=== PATIENT | male | born 1935 | race Caucasian/White ===

== ENCOUNTER → 2017-01-05 | Outpatient (CLI) | payer MEDICARE, BC ==
--- NOTE | 2017-01-05 12:30 | US ---
EXAMINATION TYPE: US thyroid st tissue head/neck DATE OF EXAM: 01/05/2017 11:25 AM COMPARISON: US on PACS 2010October 04, 2011. CT chest October 23, 2014. 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 Right thyroidectomy; patient takes thyroid medication. GLAND SIZE: Right Lobe: surgically removed Left Lobe: 4.1 x 1.6 x 2.6 cm Overall Parenchyma: homogeneous Isthmus Thickness: 0.2 cm NODULES RIGHT: no thyroid tissue seen LEFT: # of nodules measured on left: 2 largest of multiple 1. 1.1 x 0.9 x 0.9 cm hypoechoic mixed nodule at the mid pole with well-defined margins; present wit h microcalcification. This nodule is wider than tall and shows no intranodular vascularity. Prior size: 2010 US had couple smaller cysts 2. 1.1 x 1.1 x 1.0 cm hypoechoic mixed nodule at the medial pole with well-defined margins; present with microcalcification. This nodule is wider than tall and shows no intranodular vascularity. ISTHMUS: # of nodules measured in the isthmus: 0 TECHNOLOGIST IMPRESSION: Bilateral neck scanned, no abnormal lymphadenopathy noted. No suspicious residual tissue is seen in the right thyroid bed. Left thyroid is normal in size. 2 pro bable cystic nodules measuring 1.1 cm on long axis each are marked by technologist not completely ane choic. IMPRESSION: 2 cystic nodules measuring 1.1 cm on long axis more prominent in size versus prior ultrasound and CT.
== END | disposition home or self-care (01) ==
LOC: RADUSWWP 10:48
PROVIDERS: ATTEND Otolaryngology
DX: E04.2 Nontoxic multinodular goiter (principal)
CPT/HCPCS: 76536

== ENCOUNTER 2017-01-21 09:12 | Emergency (ER) | payer MEDICARE, BC ==
--- NOTE | 2017-01-21 10:00 | ED ---
General Adult HPI <EduardEliseo - Last Filed: 01/21/17 10:30> - General Source: patient, RN notes reviewed Mode of arrival: ambulatory Limitations: no limitations <Rashad Medrano - Last Filed: 01/21/17 10:51> - General Chief complaint: Eye Problems Stated complaint: eye pain post shot Time Seen by Provider: 01/21/17 09:37 - History of Present Illness Initial comments: Patient 81-year-old male who presents emergency room today with a chief complaint of decreased vision out of the right eye with increased pain and watering. Patient does admit that yesterday he woke up with no vision in the right eye. States is only making out light. Patient states that throughout the day yesterday he began feeling some discomfort to the right eye. States he noticed when he was looking down. States he was at his granddaughter's wedding. Patient states that today the pain is increased. States worse with movements of the right eye along with increased watering and redness to the conjunctiva. Patient does admit that he sees group director experience who has been giving him injections in the right eye for bleeding behind the eye. He does admit that he had a injection this past week. He denies any other complaints or symptoms. Patient denies any recent fever, chills, shortness of breath, chest pain, back pain, abdominal pain, nausea or vomiting, numbness or tingling , dysuria or hematuria, constipation or diarrhea, headaches, or any other complaints. (Rashad Medrano) - Related Data Home Medications Medication Instructions Recorded Confirmed Aspirin 325 mg PO DAILY 09/29/14 01/21/17 Atenolol [Tenormin] 25 mg PO DAILY 09/29/14 01/21/17 Citalopram Hydrobromide [CeleXA] 20 mg PO AC-SUPPER 09/29/14 01/21/17 Citalopram Hydrobromide 40 mg PO DAILY 09/29/14 01/21/17 [Citalopram HBr] Eszopiclone [Lunesta] 3 mg PO HS 09/29/14 01/21/17 LORazepam [Ativan] 1 mg PO TID 09/29/14 01/21/17 Levothyroxine Sodium [Synthroid] 88 mcg PO DAILY 09/29/14 01/21/17 Losartan Potassium [Cozaar] 100 mg PO DAILY 09/29/14 01/21/17 Multivitamins, Thera [Multivitamin] 1 each PO DAILY 09/29/14 01/21/17 Omeprazole [PriLOSEC] 20 mg PO BID 09/29/14 01/21/17 Restaisi(Dose Unknown) 1 drop BOTH EYES BID 09/29/14 01/21/17 Saxagliptin HCl [Onglyza] 5 mg PO AC-SUPPER 09/29/14 01/21/17 Simvastatin [Zocor] 40 mg PO HS 09/29/14 01/21/17 Tamsulosin HCl [Flomax] 0.4 mg PO DAILY 09/29/14 01/21/17 buPROPion [Wellbutrin] 75 mg PO HS 09/29/14 01/21/17 buPROPion [Wellbutrin] 150 mg PO QAM 09/29/14 01/21/17 glipiZIDE [Glucotrol] 10 mg PO TID 09/29/14 01/21/17 metFORMIN HCL [Glucophage] 500 mg PO TID 09/29/14 01/21/17 risperiDONE [RisperDAL] 0.5 mg PO HS 09/29/14 01/21/17 Allergies Allergy/AdvReac Type Severity Reaction Status Date / Time No Known Allergies Allergy Verified 01/21/17 09:35 Review of Systems ROS Other: All systems not noted in ROS Statement are negative. <Eliseo Chapa - Last Filed: 01/21/17 10:30> ROS Other: All systems not noted in ROS Statement are negative. <Rashad Medrano - Last Filed: 01/21/17 10:51> ROS Statement: Those systems with pertinent positive or pertinent negative responses have been documented in the HPI. Past Medical History Past Medical History: Cancer, Diabetes Mellitus, GERD/Reflux, Hyperlipidemia, Hypertension, Myocardial Infarction ([place]), Pneumonia, Sleep Apnea/CPAP/BIPAP, Thyroid Disorder Additional Past Medical History / Comment(s): no CPAP used, hiatal hernia, hx thyroid cancer Last Myocardial Infarction Date:: 1999 History of Any Multi-Drug Resistant Organisms: None Reported Past Surgical History: Heart Catheterization With Stent, Joint Replacement Additional Past Surgical History / Comment(s): left knee replacement, cataracts Past Anesthesia/Blood Transfusion Reactions: No Reported Reaction Date of Last Stent Placement:: 1999 Past Psychological History: Anxiety, Depression Smoking Status: Former smoker Past Alcohol Use History: None Reported Past Drug Use History: None Reported - Past Family History Father Family Medical History: Cancer Mother Family Medical History: Cancer <Rashad Medrano - Last Filed: 01/21/17 10:51> General Exam <ChapaEliseo - Last Filed: 01/21/17 10:30> Limitations: no limitations <Rashad Medrano - Last Filed: 01/21/17 10:51> - General Exam Comments Initial Comments: General: The patient is awake and alert, in no distress, and does not appear acutely ill. Eye: Pupils are equal, round and reactive to light, extra-ocular movements are intact. No nystagmus. Increased redness to the right conjunctiva with watery discharge. Left conjunctiva clear. No signs of icterus. No red reflex on the right. Positive red reflex on the left. Unable to see any vessels in the right eye with funduscopic exam. Ears, nose, mouth and throat: There are moist mucous membranes and no oral lesions. Neck: The neck is supple, there is no tenderness or JVD. Cardiovascular: There is a regular rate and rhythm. No murmur, rub or gallop is appreciated. Respiratory: Lungs are clear to auscultation, respirations are non-labored, breath sounds are equal. No wheezes, stridor, rales, or rhonchi. Musculoskeletal: Normal ROM, no tenderness. Strength 5/5. Sensation intact. Pulses equal bilaterally 2+. Neurological: A&O x 3. CN II-XII intact, There are no obvious motor or sensory deficits. Coordination appears grossly intact. Speech is normal. Skin: Skin is warm and dry and no rashes or lesions are noted. Psychiatric: Cooperative, appropriate mood & affect, normal judgment. (Rashad Medrano) Course <Eliseo Chaap - Last Filed: 01/21/17 10:30> <Rashad Medrano - Last Filed: 01/21/17 10:51> Vital Signs 01/21/17 01/21/17 01/21/17 09:32 10:38 10:47 Temperature 98 F Pulse Rate 68 66 66 Respiratory 18 20 Rate Blood Pressure 201/88 221/91 193/78 O2 Sat by Pulse 93 L 94 L 92 L Oximetry - Reevaluation(s) Reevaluation #1: 01/21/17 10:24 Patient reevaluated by myself, Dr. Chapa. Patient states only able see lights out of the right eye. Patient has pain with movement. There is mild injection. Pupil is sluggish but does appear to react. Unable to visualize red reflex. Unable to visualize posterior eye. Case was discussed in detail with Dr. english who does recommend transfer. This will be set up. 01/21/17 10:30 (Eliseo Chapa) 01/21/17 0948: Case discussed with attending physician Dr. Musa, who did discuss case with on-call group director experience Dr. Goddard at [facility] covering for Dr. García. Recommends talking to on-call group director experience here at [facility] to see if they are willing to evaluate the patient. States need to rule out between blood behind the eye versus an infection. Patient being treated for macular degeneration. States patient may be transferred to [facility] for further care if unable to evaluate here at [facility]. 1005: Patient updated of options of transfer to [facility] versus evaluation here. States he would like to try to be evaluated here at [facility] if at all possible. At this time we will try to get ahold of on- call group director experience. 01/21/17 10:29 Case discussed with [facility] at this time for transfer. Receiving nurse states she will contact on-call ophthalmology to make sure that transfer accepted and will call us back. 01/21/17 10:42 [facility] did call back and except transfer to ER to ER except physician . (Rashad Medrano) Disposition <Eliseo Chapa - Last Filed: 01/21/17 10:30> Time of Disposition: 10:51 (Transfer via EMS to [facility]) - Out of Hospital Transfer - Req. Specs Out of Hospital Transfer - Requested Specifics: Other Emergency Center ([facility]) <Rashad Medrano - Last Filed: 01/21/17 10:51> Clinical Impression: Vision loss, right eye, HTN (hypertension) Disposition: OTHER INSTITUTION NOT DEFINED Condition: Stable
[2017-01-21] MEDS ORDERED: hydrALAZINE HCL 20 MG/ML 1 ML VIAL IVP STA (10:27)
[2017-01-21 11:07] LABS: Basophils # (A) 0.1 k/uL (0-0.2); Basophils % (A) 1 %; CH 32.3; CHCM 32.7; Eosinophils # (A) 0.2 k/uL (0-0.7); Eosinophils % (A) 2 %; HCT 43.1 % (39.0-53.0); HDW 2.51; HGB 14.3 gm/dL (13.0-17.5); Luc # (Auto) 0.24; Luc % (Auto) 2; Lymphocytes # (A) 1.6 k/uL (1.0-4.8); Lymphocytes % (A) 14 %; MCH 32.8 pg (25.0-35.0); MCHC 33.1 g/dL (31.0-37.0); MCV 99.2 fL (80.0-100.0); Mean Platelet Volume 7.6; Monocytes # (A) 0.5 k/uL (0-1.0); Monocytes % (A) 4 %; Neutrophils % (A) 78 %; RBC 4.35 m/uL (4.30-5.90); RDW 13.3 % (11.5-15.5); WBC 11.6 k/uL (3.8-10.6); WBC (Perox) 11.78
[2017-01-21 11:08] VITALS: RESP 18
[2017-01-21 11:17] LABS: Partial Thromboplastin Time 24.4 sec (22.0-30.0); Prothrombin Time 10.2 sec (9.0-12.0)
[2017-01-21 11:23] LABS: ALT 27 U/L (21-72); AST 16 U/L (17-59); Alkaline Phosphatase 92 U/L (38-126); Anion Gap 10 mmol/L; Blood Urea Nitrogen 32 mg/dL (9-20); Calcium 9.9 mg/dL (8.4-10.2); Carbon Dioxide 24 mmol/L (22-30); Chloride 108 mmol/L (98-107); Glucose 171 mg/dL (74-99); Non-African American GFR(MDRD) 56 (>60 ml/min/1.73 sqM); Potassium 5.3 mmol/L (3.5-5.1); Sodium 142 mmol/L (137-145); Total Bilirubin 0.4 mg/dL (0.2-1.3); Total Protein 6.5 g/dL (6.3-8.2)
[2017-01-21] MEDS ORDERED: MORPHINE SULFATE 4 MG/ML SYRINGE IV STA (12:07)
[2017-01-21 12:12] VITALS: BP 158/89; PULSE 79; TEMP 97.8
== END 2017-01-21 12:10 | disposition short-term general hospital (02) ==
LOC: EC 09:12
DX: H54.61 Unqualified visual loss, right eye, normal vision left eye (principal); H35.30 Unspecified macular degeneration; I10 Essential (primary) hypertension; E11.9 Type 2 diabetes mellitus without complications; K21.9 Gastro-esophageal reflux disease without esophagitis; E78.5 Hyperlipidemia, unspecified; I25.2 Old myocardial infarction; E07.9 Disorder of thyroid, unspecified; F41.9 Anxiety disorder, unspecified; F32.9 Major depressive disorder, single episode, unspecified; Z87.891 Personal history of nicotine dependence; Z79.84 Long term (current) use of oral hypoglycemic drugs; Z79.899 Other long term (current) drug therapy; Z79.82 Long term (current) use of aspirin; Z85.850 Personal history of malignant neoplasm of thyroid; Z95.5 Presence of coronary angioplasty implant and graft
CPT/HCPCS: 99284; 96374; 96375; 36415; 80053; 85025; 85610; 85730; J2270; J0360

== ENCOUNTER → 2017-06-25 | Outpatient (CLI) | payer MEDICARE, BC ==
--- NOTE | 2017-06-25 14:31 | US ---
EXAMINATION TYPE: US thyroid st tissue head/neck DATE OF EXAM: 06/25/2017 COMPARISON: NONE CLINICAL HISTORY: E04.1 THYROID NODULE; Right thyroidectomy; follow up left nodules GLAND SIZE: Right Lobe: surgically removed Left Lobe: 4.3 x 1.7 x 2.4 cm Overall Parenchyma: homogeneous Isthmus Thickness: 0.3 cm NODULES RIGHT Thyroid surgically removed LEFT: # of nodules measured on left: 2 largest of multiple 1. 1.0 x 1.0 x 0.8cm hypoechoic complex cystic nodule at the mid pole with well-defined margins. Thi s nodule is wider than tall and shows no intranodular vascularity. Prior size: 1.1 x 0.9 x 0.9 cm 2. 1.1 X 0.9 x 0.8 cm hypoechoic complex cystic nodule at the mid medial pole with well-defined lakia ins; . This nodule is wider than tall and shows no intranodular vascularity. Prior size: 1.1 x 1.1 x 1.0 cm ISTHMUS: # of nodules measured in the isthmus: 0 Bilateral neck scanned, no evidence of lymphadenopathy. IMPRESSION: 1. Postsurgical change involving the right lobe. 2. Stable left-sided thyroid nodules.
== END | disposition home or self-care (01) ==
LOC: RADUSWWP 13:48
PROVIDERS: ATTEND Otolaryngology
DX: E04.2 Nontoxic multinodular goiter (principal); E89.0 Postprocedural hypothyroidism
CPT/HCPCS: 76536

== ENCOUNTER → 2018-02-13 | Outpatient (CLI) | payer MEDICARE, BC ==
--- NOTE | 2018-02-13 10:19 | US ---
EXAMINATION TYPE: US thyroid st tissue head/neck DATE OF EXAM: 02/13/2018 COMPARISON: 06/25/2017 CLINICAL HISTORY: 82-year-old male E04.1 Nontoxic single thyroid nodule. Left thyroid nodules, histor y of thyroid CA and right thyroidectomy Technique: Multiple sonographic images of the thyroid gland are obtained. FINDINGS: GLAND SIZE: Right Lobe: surgically absent Left Lobe: 3.9 x 2.3 x 1.5 cm Overall Parenchyma: homogeneous Isthmus Thickness: 0.3 cm NODULES RIGHT THYROID BED: 1.7 x 0.8 x 0.7cm hypoechoic vascular structure mid right thyroid bed. LEFT: # of nodules measured on left: 2 1. 10 x 8 x 7 mm hypoechoic complex cystic nodule at the mid pole with well-defined margins. This nod ule is wider than tall and shows no intranodular vascularity. Prior size: 1.0 x 1.0 x 0.8 cm 2. 11 x 10 x 10 mm hypoechoic complex cystic nodule at the mid pole with well-defined margins. This n odule is wider than tall and shows no intranodular vascularity. Prior size: 1.1 x 0.9 x 0.8 cm ISTHMUS: # of nodules measured in the isthmus: 0 Bilateral neck scanned, no evidence of lymphadenopathy. IMPRESSION: 1. A new 1.7 x 0.8 x 0.7 cm focus of tissue in the right thyroidectomy bed could represent some regen erative thyroid tissue. Correlate with tumor markers and possible additional imaging to exclude local recurrence. Interventional radiology consultation can be considered to assess if this would be safe for percutaneous aspiration. 2. The to mixed cystic nodules in the left lobe are essentially stable.
== END | disposition home or self-care (01) ==
LOC: RADUSWWP 08:40
PROVIDERS: ATTEND Otolaryngology
DX: E04.2 Nontoxic multinodular goiter (principal); E89.0 Postprocedural hypothyroidism
CPT/HCPCS: 76536

== ENCOUNTER 2018-11-07 11:32 | Inpatient (IN) | payer MEDICARE, BC ==
--- NOTE | 2018-11-07 11:46 | ED ---
General Adult HPI - General Stated complaint: Fall Time Seen by Provider: 11/07/18 11:35 Source: patient, family, EMS, RN notes reviewed Mode of arrival: EMS Limitations: altered mental status - History of Present Illness Initial comments: Patient is a pleasant 83-year-old male presenting to the emergency department from physician office with concerns for generalized weakness. Patient is a poor historian. Patient is unclear how long his symptoms have been going on for. Patient originally complains of palpitations however states that is chronic. Patient then complains of having some chest discomfort which he is originally stated just started today and later stated has been going on for years. Patient does admit to having a couple of falls over the past couple of days. Patient originally denies head injury. states patient did hit his head however did not seem significant. Patient denies any loss of consciousness. Patient denies any confusion. Patient states he has been generally weak for a very long time however just seems worse occasionally. - Related Data Home Medications Medication Instructions Recorded Confirmed Aspirin 325 mg PO DAILY 09/29/14 11/07/18 Atenolol [Tenormin] 25 mg PO DAILY 09/29/14 11/07/18 Citalopram Hydrobromide [CeleXA] 20 mg PO AC-SUPPER 09/29/14 11/07/18 Citalopram Hydrobromide 40 mg PO DAILY 09/29/14 11/07/18 [Citalopram HBr] Eszopiclone [Lunesta] 3 mg PO HS 09/29/14 11/07/18 LORazepam [Ativan] 1 mg PO TID 09/29/14 11/07/18 Levothyroxine Sodium [Synthroid] 88 mcg PO DAILY 09/29/14 11/07/18 Losartan Potassium [Cozaar] 100 mg PO DAILY 09/29/14 11/07/18 Multivitamins, Thera [Multivitamin] 1 each PO DAILY 09/29/14 11/07/18 Omeprazole [PriLOSEC] 20 mg PO BID 09/29/14 11/07/18 Restaisi(Dose Unknown) 1 drop BOTH EYES BID 09/29/14 11/07/18 Saxagliptin HCl [Onglyza] 5 mg PO AC-SUPPER 09/29/14 11/07/18 Simvastatin [Zocor] 40 mg PO HS 09/29/14 11/07/18 Tamsulosin HCl [Flomax] 0.4 mg PO DAILY 09/29/14 11/07/18 buPROPion [Wellbutrin] 75 mg PO HS 09/29/14 11/07/18 buPROPion [Wellbutrin] 150 mg PO QAM 09/29/14 11/07/18 glipiZIDE [Glucotrol] 10 mg PO TID 09/29/14 11/07/18 risperiDONE [RisperDAL] 0.5 mg PO HS 09/29/14 11/07/18 Cyanocobalamin [Vitamin B-12] 500 mcg PO DAILY 11/07/18 11/07/18 Diphenox-Atrop 2.5-0.025 mg 1 tab PO Q4-6H PRN 11/07/18 11/07/18 [Lomotil] Linagliptin [Tradjenta] 5 mg PO DAILY 11/07/18 11/07/18 Loratadine [Claritin] 10 mg PO DAILY 11/07/18 11/07/18 [place]-3 Fatty Acids/Fish Oil [Fish 1 cap PO DAILY 11/07/18 11/07/18 Oil 1,000 mg Softgel] Tamsulosin HCl [Flomax] 0.4 mg PO HS 11/07/18 11/07/18 Vit C/E/Zn/Coppr/Lutein/Zeaxan 1 cap PO BID 11/07/18 11/07/18 [Preservision Areds 2 Softgel] metFORMIN HCL 1,000 mg PO BID 11/07/18 11/07/18 Allergies Allergy/AdvReac Type Severity Reaction Status Date / Time No Known Allergies Allergy Verified 11/07/18 12:22 Review of Systems ROS Statement: Those systems with pertinent positive or pertinent negative responses have been documented in the HPI. ROS Other: All systems not noted in ROS Statement are negative. Constitutional: Denies: fever, chills Eyes: Denies: eye pain ENT: Denies: ear pain Respiratory: Denies: cough, dyspnea Cardiovascular: Reports: as per HPI, chest pain, palpitations Endocrine: Reports: fatigue Gastrointestinal: Denies: abdominal pain Genitourinary: Denies: dysuria Musculoskeletal: Denies: back pain Skin: Denies: rash Neurological: Reports: as per HPI, weakness. Denies: headache Past Medical History Past Medical History: Cancer, Diabetes Mellitus, GERD/Reflux, Hyperlipidemia, Hypertension, Myocardial Infarction ([place]), Pneumonia, Sleep Apnea/CPAP/BIPAP, Thyroid Disorder Additional Past Medical History / Comment(s): no CPAP used, hiatal hernia, hx thyroid cancer Last Myocardial Infarction Date:: 1999 History of Any Multi-Drug Resistant Organisms: None Reported Past Surgical History: Heart Catheterization With Stent, Joint Replacement Additional Past Surgical History / Comment(s): left knee replacement, cataracts Past Anesthesia/Blood Transfusion Reactions: No Reported Reaction Date of Last Stent Placement:: 1999 Past Psychological History: Anxiety, Depression Smoking Status: Former smoker Past Alcohol Use History: None Reported Past Drug Use History: None Reported - Past Family History Father Family Medical History: Cancer Mother Family Medical History: Cancer General Exam Limitations: no limitations General appearance: alert, in no apparent distress Head exam: Present: atraumatic, normocephalic Eye exam: Present: normal appearance, PERRL, EOMI. Absent: nystagmus ENT exam: Present: normal oropharynx Neck exam: Present: normal inspection. Absent: tenderness Respiratory exam: Present: normal lung sounds bilaterally. Absent: chest wall tenderness Cardiovascular Exam: Present: regular rate, normal rhythm Expanded Peripheral pulses: 2+: Radial (R), Radial (L), Posterior Tibialis (R), Posterior Tibialis (L) GI/Abdominal exam: Present: soft. Absent: tenderness Extremities exam: Present: normal inspection. Absent: pedal edema, calf tenderness Neurological exam: Present: alert, oriented X3, CN II-XII intact. Absent: motor sensory deficit Expanded Neurological exam: Present: protecting the airway Patient oriented to: Present: person, place, time Speech: Present: fluid speech Cranial nerves: EOM's Intact: Normal Sensory exam: Upper Extremity Light Touch: Normal, Lower Extremity Light Touch: Normal Motor strength exam: RUE: 5, LUE: 5, RLE: 5, LLE: 5 Eye Response: (4) open spontaneously Motor Response: (6) obeys commands Verbal Response: (5) oriented Psychiatric exam: Present: normal affect, normal mood Skin exam: Present: normal color Course Vital Signs 11/07/18 11:33 Temperature 97.1 F L Pulse Rate 61 Respiratory 18 Rate Blood Pressure 188/60 O2 Sat by Pulse 94 L Oximetry - Reevaluation(s) Reevaluation #1: 11/07/18 15:17 Patient was earlier reevaluated. Patient and family updated. Case was discussed with Dr. Pizano, covering for Dr. Joseph, who will admit. EKG Findings - EKG Comments: EKG Findings:: Sinus bradycardia 58. [place] 142. QRS 88. QT 450. QTC 441. Left axis. Inferior Q waves. No acute ST change. Medical Decision Making - Lab Data Result diagrams: 11/07/18 11:54 11/07/18 11:54 Lab Results 11/07/18 11/07/18 11/07/18 Range/Units 11:54 11:54 11:54 WBC 8.8 (3.8-10.6) k/uL RBC 4.26 L (4.30-5.90) m/uL Hgb 13.3 (13.0-17.5) gm/dL Hct 41.8 (39.0-53.0) % MCV 98.1 (80.0-100.0) fL MCH 31.2 (25.0-35.0) pg MCHC 31.8 (31.0-37.0) g/dL RDW 13.5 (11.5-15.5) % Plt Count 240 (150-450) k/uL Neutrophils % 78 % Lymphocytes % 13 % Monocytes % 6 % Eosinophils % 1 % Basophils % 0 % Neutrophils # 6.8 (1.3-7.7) k/uL Lymphocytes # 1.2 (1.0-4.8) k/uL Monocytes # 0.5 (0-1.0) k/uL Eosinophils # 0.1 (0-0.7) k/uL Basophils # 0.0 (0-0.2) k/uL PT (9.0-12.0) sec INR (<1.2) APTT (22.0-30.0) sec Sodium 140 (137-145) mmol/L Potassium 5.2 H (3.5-5.1) mmol/L Chloride 111 H (98-107) mmol/L Carbon Dioxide 17 L (22-30) mmol/L Anion Gap 12 mmol/L BUN 41 H (9-20) mg/dL Creatinine 2.45 H (0.66-1.25) mg/dL Est GFR (CKD-EPI)AfAm 28 (>60 ml/min/1.73 sqM) Est GFR (CKD-EPI)NonAf 24 (>60 ml/min/1.73 sqM) Glucose 187 H (74-99) mg/dL Plasma Lactic Acid Qasim (0.7-2.0) mmol/L Calcium 9.3 (8.4-10.2) mg/dL Phosphorus 4.4 (2.5-4.5) mg/dL Magnesium 1.8 (1.6-2.3) mg/dL Total Bilirubin 0.4 (0.2-1.3) mg/dL AST 28 (17-59) U/L ALT 26 (21-72) U/L Alkaline Phosphatase 72 (38-126) U/L Total Creatine Kinase 319 H (55-170) U/L CK-MB (CK-2) 5.9 H (0.0-2.4) ng/mL CK-MB (CK-2) Rel Index 1.8 Troponin I 0.025 (0.000-0.034) ng/mL Total Protein 6.6 (6.3-8.2) g/dL Albumin 3.8 (3.5-5.0) g/dL TSH 1.470 (0.465-4.680) mIU/L Free T4 1.58 (0.78-2.19) ng/dL Free T3 pg/mL 2.6 L (2.8-5.3) pg/ml 11/07/18 11/07/18 Range/Units 11:54 11:54 WBC (3.8-10.6) k/uL RBC (4.30-5.90) m/uL Hgb (13.0-17.5) gm/dL Hct (39.0-53.0) % MCV (80.0-100.0) fL MCH (25.0-35.0) pg MCHC (31.0-37.0) g/dL RDW (11.5-15.5) % Plt Count (150-450) k/uL Neutrophils % % Lymphocytes % % Monocytes % % Eosinophils % % Basophils % % Neutrophils # (1.3-7.7) k/uL Lymphocytes # (1.0-4.8) k/uL Monocytes # (0-1.0) k/uL Eosinophils # (0-0.7) k/uL Basophils # (0-0.2) k/uL PT 10.8 (9.0-12.0) sec INR 1.0 (<1.2) APTT 19.6 L (22.0-30.0) sec Sodium (137-145) mmol/L Potassium (3.5-5.1) mmol/L Chloride (98-107) mmol/L Carbon Dioxide (22-30) mmol/L Anion Gap mmol/L BUN (9-20) mg/dL Creatinine (0.66-1.25) mg/dL Est GFR (CKD-EPI)AfAm (>60 ml/min/1.73 sqM) Est GFR (CKD-EPI)NonAf (>60 ml/min/1.73 sqM) Glucose (74-99) mg/dL Plasma Lactic Acid Qasim 1.7 (0.7-2.0) mmol/L Calcium (8.4-10.2) mg/dL Phosphorus (2.5-4.5) mg/dL Magnesium (1.6-2.3) mg/dL Total Bilirubin (0.2-1.3) mg/dL AST (17-59) U/L ALT (21-72) U/L Alkaline Phosphatase (38-126) U/L Total Creatine Kinase (55-170) U/L CK-MB (CK-2) (0.0-2.4) ng/mL CK-MB (CK-2) Rel Index Troponin I (0.000-0.034) ng/mL Total Protein (6.3-8.2) g/dL Albumin (3.5-5.0) g/dL TSH (0.465-4.680) mIU/L Free T4 (0.78-2.19) ng/dL Free T3 pg/mL (2.8-5.3) pg/ml - Radiology Data Radiology results: report reviewed (CT brain shows degenerative changes.), image reviewed (Chest x-ray shows raised right hemidiaphragm. Likely atelectasis. Cardiomegaly.) Disposition Clinical Impression: Acute renal failure (ARF) Disposition: ADMITTED IP TO THIS HOSP Is patient prescribed a controlled substance at d/c from ED?: No Referrals: Amy Joseph DO [Primary Care Provider] - 1-2 days Decision Time: 15:18
[2018-11-07 12:21] LABS: Basophils % (A) 0 %; Eosinophils # (A) 0.1 k/uL (0-0.7); Eosinophils % (A) 1 %; HCT 41.8 % (39.0-53.0); HGB 13.3 gm/dL (13.0-17.5); Lymphocytes # (A) 1.2 k/uL (1.0-4.8); Lymphocytes % (A) 13 %; MCH 31.2 pg (25.0-35.0); MCHC 31.8 g/dL (31.0-37.0); MCV 98.1 fL (80.0-100.0); Mean Platelet Volume 7.3; Monocytes # (A) 0.5 k/uL (0-1.0); Monocytes % (A) 6 %; Neutrophils # (A) 6.8 k/uL (1.3-7.7); Neutrophils % (A) 78 %; Platelet Count 240 k/uL (150-450); RBC 4.26 m/uL (4.30-5.90); RDW 13.5 % (11.5-15.5); WBC 8.8 k/uL (3.8-10.6)
[2018-11-07 12:29] LABS: Prothrombin Time 10.8 sec (9.0-12.0)
[2018-11-07 12:35] LABS: Albumin 3.8 g/dL (3.5-5.0); Calcium 9.3 mg/dL (8.4-10.2); Magnesium 1.8 mg/dL (1.6-2.3); Phosphorus 4.4 mg/dL (2.5-4.5); Potassium 5.2 mmol/L (3.5-5.1); Total Bilirubin 0.4 mg/dL (0.2-1.3); Total Protein 6.6 g/dL (6.3-8.2)
[2018-11-07 12:42] LABS: Partial Thromboplastin Time 19.6 sec (22.0-30.0)
[2018-11-07 12:51] LABS: T4, Free (Free Thyroxine) 1.58 ng/dL (0.78-2.19)
[2018-11-07 12:53] LABS: Creatine Kinase MB 5.9 ng/mL (0.0-2.4); Troponin I 0.025 ng/mL (0.000-0.034)
--- NOTE | 2018-11-07 12:54 | CT ---
EXAMINATION TYPE: CT brain wo con DATE OF EXAM: 11/07/2018 COMPARISON: 08/19/2011 HISTORY: Pain and weakness post fall CT DLP: 1099.4 mGycm Automated exposure control for dose reduction was used. FINDINGS: Mild degenerative change noted. No acute intracranial hemorrhage. Periventricular and deep white matter areas of low attenuation are suggestive of remote white matter ischemia. There is a low density involving the basal ganglia are stable compatible with remote lacunar infarct. No acute hemorrhage. No mass effect or midline shift. Calvarium intact. Hyperostosis of the calvarium noted. Calcification is noted on the right which may be vascular within the parietal lobe. Appears within the sulcus. IMPRESSION: DEGENERATIVE AND NONSPECIFIC WHITE MATTER CHANGES MOST TYPICAL OF REMOTE ISCHEMIA.
--- NOTE | 2018-11-07 12:56 | XR ---
EXAMINATION TYPE: XR chest 2V DATE OF EXAM: 11/07/2018 COMPARISON: 10/23/2014 TECHNIQUE: PA and lateral views submitted. HISTORY: Weakness FINDINGS: The heart is enlarged and is atherosclerotic change aorta. Arthropathy of the shoulders. No pneumotho rax or overt failure. Elevated right hemidiaphragm with subsegmental consolidation. No overt failure. Underlying COPD suspected. IMPRESSION: 1. Elevated right hemidiaphragm with right basilar consolidation which may be related atelectasis rat her than pneumonia correlate clinically for confirmation. 2. Cardiomegaly.
[2018-11-07] MEDS ORDERED: NALOXONE 0.4 MG/ML 1 ML VIAL IV PRN (15:18)
[2018-11-07] MEDS ORDERED: DIPHENOX-ATROP 2.5-0.025 MG 1 EACH TAB PO PRN (15:50)
--- NOTE | 2018-11-07 16:02 | P.HPIM ---
History of Present Illness H&P Date: 11/07/18 Chief Complaint: Weakness and falls This is a 83-year-old male patient of Dr. Joseph. Patient presented to the emergency room complaining of multiple falls that has been occurring over the past 2 days. She denies tripping. Per patient fell out of bed. Patient also states he is having chest pain. Patient does follow with cardiology services. Patient does appear to be a poor historian. Family is at bedside. She doesn't past medical history of diabetes mellitus, GERD, hyperlipidemia, hypertension, myocardial infarction, pneumonia, sleep apnea and thyroid answer. patient also states he has history of heart cath with stents. Last heart cath was in 2013. Chest x-ray completed showing elevated right pepito-diaphragm neck with right basilar consolidation which may be related to atelectasis rather than pneumonia correlate clinically for confirmation. Cardiomegaly. CT of head completed showing degenerative and nonspecific white matter changes most typical remote ischemia. EKG completed showing sinus bradycardia with heart rate 58. Creatinine 2.45 and bun 41 potassium also elevated at 5.2. Patient also states he fell on Thanksgiving his back at this time. Patient denies any back x-rays being completed. Dr. Sauer will be consulted for nephrology services. Dr. Sparks has been consulted for cardiology services. Patient does complain of some burning with urination. Urinary analysis has been ordered. Denies cough or shortness breath. Denies nausea vomiting or diarrhea. Review of Systems please refer to HPI otherwise unremarkable Past Medical History Past Medical History: Cancer, Diabetes Mellitus, GERD/Reflux, Hyperlipidemia, Hypertension, Myocardial Infarction ([place]), Pneumonia, Sleep Apnea/CPAP/BIPAP, Thyroid Disorder Additional Past Medical History / Comment(s): no CPAP used, hiatal hernia, hx thyroid cancer Last Myocardial Infarction Date:: 1999 History of Any Multi-Drug Resistant Organisms: None Reported Past Surgical History: Heart Catheterization With Stent, Joint Replacement Additional Past Surgical History / Comment(s): left knee replacement, cataracts Past Anesthesia/Blood Transfusion Reactions: No Reported Reaction Date of Last Stent Placement:: 1999 Past Psychological History: Anxiety, Depression Smoking Status: Former smoker Past Alcohol Use History: None Reported Past Drug Use History: None Reported - Past Family History Father Family Medical History: Cancer Mother Family Medical History: Cancer Medications and Allergies Home Medications Medication Instructions Recorded Confirmed Type Aspirin 325 mg PO DAILY 09/29/14 11/07/18 History Atenolol [Tenormin] 25 mg PO DAILY 09/29/14 11/07/18 History Citalopram Hydrobromide [CeleXA] 20 mg PO AC-SUPPER 09/29/14 11/07/18 History Citalopram Hydrobromide 40 mg PO DAILY 09/29/14 11/07/18 History [Citalopram HBr] Eszopiclone [Lunesta] 3 mg PO HS 09/29/14 11/07/18 History LORazepam [Ativan] 1 mg PO TID 09/29/14 11/07/18 History Levothyroxine Sodium [Synthroid] 88 mcg PO DAILY 09/29/14 11/07/18 History Losartan Potassium [Cozaar] 100 mg PO DAILY 09/29/14 11/07/18 History Multivitamins, Thera [Multivitamin] 1 each PO DAILY 09/29/14 11/07/18 History Omeprazole [PriLOSEC] 20 mg PO BID 09/29/14 11/07/18 History Restaisi(Dose Unknown) 1 drop BOTH EYES BID 09/29/14 11/07/18 History Saxagliptin HCl [Onglyza] 5 mg PO AC-SUPPER 09/29/14 11/07/18 History Simvastatin [Zocor] 40 mg PO HS 09/29/14 11/07/18 History Tamsulosin HCl [Flomax] 0.4 mg PO DAILY 09/29/14 11/07/18 History buPROPion [Wellbutrin] 75 mg PO HS 09/29/14 11/07/18 History buPROPion [Wellbutrin] 150 mg PO QAM 09/29/14 11/07/18 History glipiZIDE [Glucotrol] 10 mg PO TID 09/29/14 11/07/18 History risperiDONE [RisperDAL] 0.5 mg PO HS 09/29/14 11/07/18 History Cyanocobalamin [Vitamin B-12] 500 mcg PO DAILY 11/07/18 11/07/18 History Diphenox-Atrop 2.5-0.025 mg 1 tab PO Q4-6H PRN 11/07/18 11/07/18 History [Lomotil] Linagliptin [Tradjenta] 5 mg PO DAILY 11/07/18 11/07/18 History Loratadine [Claritin] 10 mg PO DAILY 11/07/18 11/07/18 History [place]-3 Fatty Acids/Fish Oil [Fish 1 cap PO DAILY 11/07/18 11/07/18 History Oil 1,000 mg Softgel] Tamsulosin HCl [Flomax] 0.4 mg PO HS 11/07/18 11/07/18 History Vit C/E/Zn/Coppr/Lutein/Zeaxan 1 cap PO BID 11/07/18 11/07/18 History [Preservision Areds 2 Softgel] metFORMIN HCL 1,000 mg PO BID 11/07/18 11/07/18 History Allergies Allergy/AdvReac Type Severity Reaction Status Date / Time No Known Allergies Allergy Verified 11/07/18 12:22 Physical Exam Vitals: Vital Signs Temp Pulse Resp BP Pulse Ox 11/07/18 11:33 97.1 F L 61 18 188/60 94 L Intake and Output 11/07/18 11/07/18 11/07/18 06:59 14:59 22:59 Other: Weight 90.718 kg Head normocephalic Neck supple Lungs clear to auscultation bilaterally no wheezing or crackles Heart regular rate and rhythm S1-S2, no rub or gallop Abdomen is soft nontender nondistended positive bowel sounds no hepatosplenomegaly Extremities no edema Neuro alert and orientated to 3. Patient does appear forgetful. Poor historian Results CBC & Chem 7: 11/07/18 11:54 11/07/18 11:54 Labs: Abnormal Lab Results - Last 24 Hours (Table) 11/07/18 11/07/18 11/07/18 Range/Units 11:54 11:54 11:54 RBC 4.26 L (4.30-5.90) m/uL APTT (22.0-30.0) sec Potassium 5.2 H (3.5-5.1) mmol/L Chloride 111 H (98-107) mmol/L Carbon Dioxide 17 L (22-30) mmol/L BUN 41 H (9-20) mg/dL Creatinine 2.45 H (0.66-1.25) mg/dL Glucose 187 H (74-99) mg/dL Total Creatine Kinase 319 H (55-170) U/L CK-MB (CK-2) 5.9 H (0.0-2.4) ng/mL Free T3 pg/mL 2.6 L (2.8-5.3) pg/ml 11/07/18 Range/Units 11:54 RBC (4.30-5.90) m/uL APTT 19.6 L (22.0-30.0) sec Potassium (3.5-5.1) mmol/L Chloride (98-107) mmol/L Carbon Dioxide (22-30) mmol/L BUN (9-20) mg/dL Creatinine (0.66-1.25) mg/dL Glucose (74-99) mg/dL Total Creatine Kinase (55-170) U/L CK-MB (CK-2) (0.0-2.4) ng/mL Free T3 pg/mL (2.8-5.3) pg/ml Assessment and Plan Assessment: 1. Increased weakness with falls. Head CT completed showing degenerative and nonspecific white matter change most typical of remote ischemia. Urinary analysis ordered. Chest x-ray completed showing elevated right hemidiaphragm neck with right basal consolidation which may be related to atelectasis rather than pneumonia correlate clinically continue for confirmation. Cardiomegaly 2. Syncopal episode. Cardiology services have been consulted. EKG showing sinus bradycardia. 2-D echo and carotid ultrasound has been ordered 3. Chest pain. Initial troponin negative. Cardiac enzymes ordered. Cardiac telemetry ordered. Cardiology services consulted 4. Acute on chronic kidney disease. Creatinine 2.45 and bun 41. Patient's Cozaar held 5. Hyperkalemia. Potassium 5.2. Order 1 dose of Kayexalate. Cozaar held. Repeat in a.m. 6. Back pain. Patient states he fell a few weeks ago and hurt his back. Will order a thoracic spine x-ray at this time 7. Diabetes mellitus. Home medications held at this time will order sliding scale coverage 8. History of cardiac stent. 9. History of thyroid cancer. 10. Hypothyroidism patient maintained on Synthroid 11. Essential hypertension 12. History of GERD 13. History of anxiety and depression. Home meds resumed DVT prophylaxis heparin. GI prophylaxis pepcid Time with Patient: Greater than 30 (Greater than 60% of the total time spent in counseling and coordination of care. I performed an examination of the patient and discussed their management with the Nurse Practitioner. I have reviewed the Nurse Practitioner's notes and agree with the documented findings and plan of care)
[2018-11-07] MEDS ORDERED: SODIUM POLYSTYRENE SULFONATE 15 GM/60 ML BOTTLE PO STA (16:07)
--- NOTE | 2018-11-07 16:30 | XR ---
EXAMINATION TYPE: XR thoracic spine complete DATE OF EXAM: 11/07/2018 CLINICAL HISTORY: Pain. TECHNIQUE: Frontal, lateral, and swimmer's view of thoracic spine are obtained. COMPARISON: None. FINDINGS: Some demineralization is present. Thoracic spine show satisfactory alignment without eviden ce of acute fracture or dislocation. Vertebral body heights and disc space heights are preserved. Mu ltilevel spurring is seen with some bridging osteophytes noted anteriorly in the mid to lower thoraci c spine. Visualized ribs are intact bilaterally. IMPRESSION: As above.
[2018-11-07 16:33] LABS: Appearance,Urine Cloudy (Clear); Bacteria,Urine Occasional /hpf; Bilirubin,Urine Negative (Negative); Blood,Urine Trace (Negative); Color,Urine Yellow; Glucose,Urine (UA) Negative (Negative); Hyaline Casts,Urine 4 /lpf (0-2); Ketones,Urine Trace (Negative); Leukocyte Esterase,Urine Negative (Negative); Mucus,Urine Rare /hpf; Nitrite,Urine Negative (Negative); Protein,Urine 3+ (Negative); Urobilinogen,Urine <2.0 mg/dL (<2.0); WBC,Urine 4 /hpf (0-5)
[2018-11-07] MEDS: SODIUM CHLORIDE 0.9% 1,000 ML IV SCH (16:59)
[2018-11-07] MEDS ORDERED: amLODIPine 5 MG TAB PO STA (17:11)
[2018-11-07] MEDS: LORazepam 1 MG TAB PO PRN ×2 (17:14→22:55)
[2018-11-07 17:38] LABS: Glucose,Whole Blood 150 mg/dL (75-99)
[2018-11-07] MEDS: INSULIN ASPART 100 UNIT/ML 1 ML 10 ML VIAL SQ SCH ×2 (18:30→20:26)
[2018-11-07] MEDS: CITALOPRAM HYDROBROMIDE 20 MG TAB PO SCH (18:31)
[2018-11-07] MEDS: VIT A,C & E-LUTEIN-MINERALS 1 EACH TAB PO SCH (20:19)
[2018-11-07] MEDS: cycloSPORINE 0.05% OPHTH 0.4 ML DROPERETTE BOTH EYES SCH (20:19)
[2018-11-07] MEDS: risperiDONE 0.5 MG TAB PO SCH (20:19)
[2018-11-07] MEDS: buPROPion 75 MG TAB PO SCH (20:19)
[2018-11-07] MEDS: ATORVASTATIN 20 MG TAB PO SCH (20:19)
[2018-11-07] MEDS: HEPARIN SODIUM,PORCINE 5,000 UNIT/ML 1 ML VIAL SQ SCH (20:19)
[2018-11-07] MEDS: TEMAZEPAM 15 MG CAP PO SCH (20:19)
[2018-11-07] MEDS: TAMSULOSIN 0.4 MG CAP.ER.24H PO SCH (20:19)
[2018-11-07 20:31] LABS: Glucose,Whole Blood 176 mg/dL (75-99)
--- NOTE | 2018-11-08 00:29 | US ---
EXAMINATION TYPE: US carotid duplex BILAT DATE OF EXAM: 11/07/2018 COMPARISON: NONE CLINICAL HISTORY: syncopal episode. Syncope and weakness EXAM MEASUREMENTS: RIGHT: Peak Systolic Velocity (PSV) cm/sec ----- Right CCA: 80.7 ----- Right ICA: 99.0 ----- Right ECA: 206.5 ICA/CCA ratio: 1.2 RIGHT: End Diastole cm/sec ----- Right CCA: 12.9 ----- Right ICA: 14.2 ----- Right ECA: 13.7 LEFT: Peak Systolic Velocity (PSV) cm/sec ----- Left CCA: 66.0 ----- Left ICA: 104.2 ----- Left ECA: 66.8 ICA/CCA ratio: 1.6 LEFT: End Diastole cm/sec ----- Left CCA: 12.0 ----- Left ICA: 17.5 ----- Left ECA: 5.7 VERTEBRALS (direction of flow): Right Vertebral: Antegrade Left Vertebral: Antegrade Rhythm: Normal Bilateral plaque in the bulbs. Elevated velocities in right ECA. IMPRESSION: There is antegrade flow in the vertebral arteries. The images in measurements suggest cl ose to 50% stenosis in both internal carotid arteries and more than 50% stenosis in the right externa l carotid artery. Criteria for Assigning % of Stenosis / Diameter reduction (Estimation based on the indirect measurements of the internal carotid artery velocities (ICA PSV). 1. Normal (no stenosis)=ICA PSV < 125 cm/s: ratio < 2.0: ICA EDV<40 cm/s. 2. Less than 50% stenosis=ICA PSV < 125 cm/s: ratio < 2.0: ICA EDV<40 cm/s. 3. 50 to 69% stenosis=ICA PSV of 125 to 230 cm/s: ration 2.0 ? 4.0: ICA EDV 40-100 cm/s. 4. Greater than 70% stenosis to near occlusion= ICA PSV > 230 cm/s: ratio > 4.0: ICA EDV > 100 cm/s. 5. Near occlusion= ICA PSV velocities may be low or undetectable: variable ratio and ICA EDV. 6. Total occlusion=unable to detect flow.
[2018-11-08 01:38] LABS: Creatine Kinase MB 4.5 ng/mL (0.0-2.4); Troponin I 0.023 ng/mL (0.000-0.034)
[2018-11-08] MEDS: LORazepam 1 MG TAB PO PRN (02:24)
[2018-11-08] MEDS: SODIUM CHLORIDE 0.9% 1,000 ML IV SCH ×3 (02:41→17:18)
[2018-11-08] MEDS: LEVOTHYROXINE 88 MCG TAB PO SCH (05:34)
[2018-11-08 06:50] LABS: Glucose,Whole Blood 63 mg/dL (75-99)
[2018-11-08] MEDS ORDERED: DEXTROSE 50%-WATER 50 ML SYRINGE IVP ONE (06:50)
[2018-11-08] MEDS ORDERED: DEXTROSE 50%-WATER 50 ML SYRINGE IVP STA (06:52)
[2018-11-08 07:31] LABS: Basophils % (A) 0 %; Eosinophils # (A) 0.2 k/uL (0-0.7); Eosinophils % (A) 2 %; HCT 36.9 % (39.0-53.0); HGB 11.8 gm/dL (13.0-17.5); Lymphocytes # (A) 1.2 k/uL (1.0-4.8); Lymphocytes % (A) 14 %; MCH 31.7 pg (25.0-35.0); MCHC 31.8 g/dL (31.0-37.0); MCV 99.5 fL (80.0-100.0); Monocytes # (A) 0.5 k/uL (0-1.0); Monocytes % (A) 6 %; Neutrophils # (A) 6.4 k/uL (1.3-7.7); Neutrophils % (A) 76 %; Platelet Count 188 k/uL (150-450); RBC 3.71 m/uL (4.30-5.90); RDW 13.4 % (11.5-15.5); WBC 8.4 k/uL (3.8-10.6)
[2018-11-08 07:42] LABS: Albumin 3.1 g/dL (3.5-5.0); Calcium 8.3 mg/dL (8.4-10.2); Potassium 3.7 mmol/L (3.5-5.1); Total Bilirubin 0.3 mg/dL (0.2-1.3); Total Protein 5.7 g/dL (6.3-8.2)
[2018-11-08 08:16] LABS: Glucose,Whole Blood 142 mg/dL (75-99)
[2018-11-08] MEDS ORDERED: ASPIRIN 325 MG TAB PO SCH (09:00)
[2018-11-08] MEDS ORDERED: ATENOLOL 12.5 MG TAB PO STA (09:54)
[2018-11-08] MEDS ORDERED: APIXABAN 2.5 MG TABLET PO SCH (10:00)
[2018-11-08] MEDS: cycloSPORINE 0.05% OPHTH 0.4 ML DROPERETTE BOTH EYES SCH ×2 (10:03→20:20)
[2018-11-08] MEDS: LORATADINE 10 MG TAB PO SCH (10:03)
[2018-11-08] MEDS: VIT A,C & E-LUTEIN-MINERALS 1 EACH TAB PO SCH ×2 (10:03→20:19)
[2018-11-08] MEDS: ATENOLOL 25 MG TAB PO SCH (10:04)
[2018-11-08] MEDS: FAMOTIDINE 20 MG TAB PO SCH (10:04)
[2018-11-08] MEDS: PANTOPRAZOLE 40 MG TABLET PO SCH (10:04)
[2018-11-08] MEDS: buPROPion 75 MG TAB PO SCH ×2 (10:04→20:19)
[2018-11-08] MEDS: TAMSULOSIN 0.4 MG CAP.ER.24H PO SCH ×2 (10:04→20:19)
[2018-11-08] MEDS: CYANOCOBALAMIN 500 MCG TAB PO SCH (10:04)
[2018-11-08] MEDS: CITALOPRAM HYDROBROMIDE 20 MG TAB PO SCH ×2 (10:05→17:17)
[2018-11-08] MEDS: INSULIN ASPART 100 UNIT/ML 1 ML 10 ML VIAL SQ SCH ×4 (10:30→21:50)
--- NOTE | 2018-11-08 10:50 | P.CRDCN ---
History of Present Illness History of present illness: This is a pleasant 83-year-old male with past medical history significant for coronary artery disease, myocardial infarction status post angioplasty, hypertension, dyslipidemia, diabetes mellitus, ischemic cardiomyopathy. Admitted to the hospital with altered mental status at home for the previous 2 days. He is a very poor historian. Information is obtained from the medical record. Apparently he was complaining of chest discomfort at some point at home as well. He was found to have acute kidney injury with hyperkalemia. Per the nursing staff he was hallucinating pulling out his IV last night. Telemetry tracings and EKG reviewed and indicate he is having episodes of paroxysmal atrial fibrillation. There is no documented history of a- fib in the hospital or in the office. Currently maintained on aspirin 325 mg daily, atenolol 25 mg daily, losartain 100 mg daily and simvastatin 40 mg daily. Chest xray reveals an elevated hemidiaphragm with right basilar atelectasis. No heart failure. CT brain reveals degenerative and non-specific white matter changes most typical of remote ischemia. Carotid dopplers indicate 50% stenosis in both intermal carotid arteries and ore than 50% stenosis in right external carotid artery. Laboratory data reviewed, WBC 8.4, hemoglobin 11.8, platelets 188, sodium 140, potassium 3.7, creatinine 2.24 with a GFR of 27, troponin 0.023, 0.023, TSH 1.47 , free T4 1 0.58, free T3 2 0.6. Current cardiac medications include aspirin 325 mg daily, atenolol 25 mg daily, losartan 100 mg daily, simvastatin 40 mg daily. Most recent stress test performed in the office with a Lexiscan stress test in April 2017 which revealed a moderate-sized fixed inferior lateral defect with hypokinesia suggestive of history of prior [place] without reversibility noted. Most recent echocardiogram obtained in the office September 2018 reveals ejection fraction 45-50% with inferior wall hypokinesia, mildly dilated left atrium and mild MR. He follows with Dr. Wells in the office. Most recent catheterization performed 2013 reveals widely patent circumflex at the site of previous stenting, 50% lesion of the RCA in the junction of the proximal and middle one third. Unable to obtain an accurate review of systems secondary to altered mental status. Blood pressure 167/74 heart rate 63 afebrile maintaining oxygen saturation on room air GENERAL: This is a 83-year-old male in no apparent distress at the time of my examination. HEENT: Head is atraumatic, normocephalic. Pupils are equal, round. Sclerae anicteric. Conjunctivae are clear. Mucous membranes of the mouth are moist. Neck is supple. There is no jugular venous distention. No carotid bruit is heard. LUNGS: Clear to auscultation no wheezes, rales or rhonchi. No chest wall tenderness is noted on palpation or with deep breathing. HEART: Irregular rate and rhythm without murmurs, rubs or gallops. S1 and S2 heard. ABDOMEN: Soft, nontender. Bowel sounds are heard. No organomegaly noted. EXTREMITIES: No evidence of peripheral edema and no calf tenderness noted. VASCULAR: Radial and dorsalis pedis pulses palpated, no evidence of clubbing. NEUROLOGIC: Patient is awake, alert and confused. ASSESSMENT Paroxysmal atrial fibrillation with mildly rapid ventricular response Altered mental status Acute kidney injury Hyperkalemia History of coronary artery disease Ischemic cardiomyopathy s/p acute myocardial infarction Hypertension Dyslipidemia Diabetes mellitus PLAN An acute coronary event has been ruled out. Possibly chest pain is reflective of paroxysmal atrial fibrillation. No need to repeat echo on this admission with recent one obtained in the office. Initiate on eliquis 2.5 mg BID for thromboembolic protection and decrease aspirin to 81 mg daily. Give additional dose of atenolol 12.5 mg x1 now for elevated heart rate. Ongoing medical management. Thank you kindly for this consultation. Nurse Practitioner note has been reviewed, I agree with a documented findings and plan of care. Patient was seen and examined. Past Medical History Past Medical History: Coronary Artery Disease (CAD), Cancer, Diabetes Mellitus, GERD/Reflux, Hyperlipidemia, Hypertension, Myocardial Infarction ([place]), Pneumonia , Prostate Disorder, Sleep Apnea/CPAP/BIPAP, Thyroid Disorder Additional Past Medical History / Comment(s): no CPAP used, hiatal hernia, hx thyroid cancer, macular degeneration danielle eyes Last Myocardial Infarction Date:: 1999 History of Any Multi-Drug Resistant Organisms: None Reported Past Surgical History: Heart Catheterization With Stent, Joint Replacement Additional Past Surgical History / Comment(s): left knee replacement, danielle cataracts, thyroidectomy Past Anesthesia/Blood Transfusion Reactions: No Reported Reaction Additional Past Anesthesia/Blood Transfusion Reaction / Comment(s): clausterphobia -"uses open mri" Date of Last Stent Placement:: 1999 Smoking Status: Former smoker - Past Family History Father Family Medical History: Cancer Mother Family Medical History: Cancer Medications and Allergies Home Medications Medication Instructions Recorded Confirmed Type Aspirin 325 mg PO DAILY 09/29/14 11/07/18 History Atenolol [Tenormin] 25 mg PO DAILY 09/29/14 11/07/18 History Citalopram Hydrobromide [CeleXA] 20 mg PO AC-SUPPER 09/29/14 11/07/18 History Citalopram Hydrobromide 40 mg PO DAILY 09/29/14 11/07/18 History [Citalopram HBr] Eszopiclone [Lunesta] 3 mg PO HS 09/29/14 11/07/18 History LORazepam [Ativan] 1 mg PO TID 09/29/14 11/07/18 History Levothyroxine Sodium [Synthroid] 88 mcg PO DAILY 09/29/14 11/07/18 History Losartan Potassium [Cozaar] 100 mg PO DAILY 09/29/14 11/07/18 History Multivitamins, Thera [Multivitamin] 1 each PO DAILY 09/29/14 11/07/18 History Omeprazole [PriLOSEC] 20 mg PO BID 09/29/14 11/07/18 History Restaisi(Dose Unknown) 1 drop BOTH EYES BID 09/29/14 11/07/18 History Saxagliptin HCl [Onglyza] 5 mg PO AC-SUPPER 09/29/14 11/07/18 History Simvastatin [Zocor] 40 mg PO HS 09/29/14 11/07/18 History Tamsulosin HCl [Flomax] 0.4 mg PO DAILY 09/29/14 11/07/18 History buPROPion [Wellbutrin] 75 mg PO HS 09/29/14 11/07/18 History buPROPion [Wellbutrin] 150 mg PO QAM 09/29/14 11/07/18 History glipiZIDE [Glucotrol] 10 mg PO TID 09/29/14 11/07/18 History risperiDONE [RisperDAL] 0.5 mg PO HS 09/29/14 11/07/18 History Cyanocobalamin [Vitamin B-12] 500 mcg PO DAILY 11/07/18 11/07/18 History Diphenox-Atrop 2.5-0.025 mg 1 tab PO Q4-6H PRN 12/20/18 12/20/18 History [Lomotil] Linagliptin [Tradjenta] 5 mg PO DAILY 11/07/18 11/07/18 History Loratadine [Claritin] 10 mg PO DAILY 11/07/18 11/07/18 History [place]-3 Fatty Acids/Fish Oil [Fish 1 cap PO DAILY 11/07/18 11/07/18 History Oil 1,000 mg Softgel] Tamsulosin HCl [Flomax] 0.4 mg PO HS 11/07/18 11/07/18 History Vit C/E/Zn/Coppr/Lutein/Zeaxan 1 cap PO BID 11/07/18 11/07/18 History [Preservision Areds 2 Softgel] metFORMIN HCL 1,000 mg PO BID 11/07/18 11/07/18 History Allergies Allergy/AdvReac Type Severity Reaction Status Date / Time No Known Allergies Allergy Verified 11/07/18 12:22 Physical Exam Vitals: Vital Signs Temp Pulse Pulse Resp BP BP Pulse Ox 11/08/18 04:00 98.3 F 63 16 167/74 92 L 11/08/18 03:18 18 11/07/18 23:49 18 11/07/18 23:34 97.8 F 57 L 18 164/72 94 L 11/07/18 20:00 18 11/07/18 18:25 66 18 169/74 94 L 11/07/18 17:30 98.7 F 64 20 211/70 96 11/07/18 17:00 98.2 F 62 20 183/83 96 11/07/18 15:00 62 10 L 182/74 98 11/07/18 14:44 98.2 F 72 20 121/86 96 11/07/18 11:33 97.1 F L 61 18 188/60 94 L Intake and Output 11/07/18 11/08/18 11/08/18 22:59 06:59 14:59 Intake Total 100 1430 Output Total 500 Balance 100 930 Intake: IV 1080 Sodium Chloride 0.9% 1, 1080 000 ml @ 120 mls/hr IV . Q8H20M [facility] Rx#:[id number] Oral 100 350 Output: Urine 500 Other: Voiding Method Indwelling Catheter Indwelling Catheter Weight 82 kg Results 11/08/18 07:06 11/08/18 07:06 Cardiac Enzymes 11/07/18 11/07/18 11/07/18 Range/Units 11:54 11:54 16:17 AST 28 (17-59) U/L CK-MB (CK-2) 5.9 H 5.0 H (0.0-2.4) ng/mL Troponin I 0.025 (0.000-0.034) ng/mL 11/08/18 11/08/18 11/08/18 Range/Units 00:34 07:06 07:06 AST 26 (17-59) U/L CK-MB (CK-2) 4.5 H (0.0-2.4) ng/mL Troponin I 0.023 0.023 (0.000-0.034) ng/mL Coagulation 11/07/18 Range/Units 11:54 PT 10.8 (9.0-12.0) sec APTT 19.6 L (22.0-30.0) sec CBC 11/07/18 11/08/18 Range/Units 11:54 07:06 WBC 8.8 8.4 (3.8-10.6) k/uL RBC 4.26 L 3.71 L (4.30-5.90) m/uL Hgb 13.3 11.8 L (13.0-17.5) gm/dL Hct 41.8 36.9 L (39.0-53.0) % Plt Count 240 188 (150-450) k/uL Comprehensive Metabolic Panel 11/07/18 11/08/18 Range/Units 11:54 07:06 Sodium 140 140 (137-145) mmol/L Potassium 5.2 H 3.7 (3.5-5.1) mmol/L Chloride 111 H 113 H (98-107) mmol/L Carbon Dioxide 17 L 20 L (22-30) mmol/L BUN 41 H 34 H (9-20) mg/dL Creatinine 2.45 H 2.24 H (0.66-1.25) mg/dL Glucose 187 H 170 H (74-99) mg/dL Calcium 9.3 8.3 L (8.4-10.2) mg/dL AST 28 26 (17-59) U/L ALT 26 25 (21-72) U/L Alkaline Phosphatase 72 64 (38-126) U/L Total Protein 6.6 5.7 L (6.3-8.2) g/dL Albumin 3.8 3.1 L (3.5-5.0) g/dL Current Medications Generic Name Dose Route Start Last Admin Trade Name Freq PRN Reason Stop Dose Admin Aspirin 325 mg 11/08/18 09:00 Aspirin PO DAILY [facility] Atenolol 25 mg 11/08/18 09:00 Tenormin PO DAILY [facility] Atorvastatin Calcium 20 mg 11/07/18 21:00 11/07/18 20:19 Lipitor PO 20 mg HS NICKIE Administration Bupropion HCl 75 mg 11/07/18 21:00 11/07/18 20:19 Wellbutrin PO 75 mg HS NICKIE Administration Bupropion HCl 150 mg 11/08/18 09:00 Wellbutrin PO QAM NICKIE Citalopram Hydrobromide 20 mg 11/07/18 17:30 11/07/18 18:31 Celexa PO 20 mg AC-SUPPER NICKIE Administration Citalopram Hydrobromide 40 mg 11/08/18 09:00 Celexa PO DAILY [facility] Cyanocobalamin 500 mcg 11/08/18 09:00 Vitamin B-12 PO DAILY [facility] Cyclosporine 1 drops 11/07/18 21:00 11/07/18 20:19 Restasis 0.05% Ophth Soln BOTH EYES 1 drops BID [facility] Administration Diphenoxylate HCl/Atropine 1 each 11/07/18 15:50 Lomotil PO Q4H PRN Diarrhea Famotidine 20 mg 11/08/18 09:00 Pepcid PO DAILY [facility] Heparin Sodium (Porcine) 5,000 unit 11/07/18 21:00 11/07/18 20:19 Heparin SQ 5,000 unit Q12HR NICKIE Administration Sodium Chloride 1,000 mls @ 120 mls/hr 11/07/18 15:30 11/08/18 02:41 Saline 0.9% IV 120 mls/hr .Q8H20M [facility]ICKIE Administration Insulin Aspart 0 unit 11/07/18 17:30 11/07/18 20:26 Novolog SQ 2 unit ACHS NICKIE Administration Protocol Levothyroxine Sodium 88 mcg 11/08/18 06:30 11/08/18 05:34 Synthroid PO 88 mcg DAILY@0630 NICKIE Administration Loratadine 10 mg 11/08/18 09:00 Claritin PO DAILY [facility] Lorazepam 1 mg 11/07/18 16:00 11/08/18 02:24 Ativan PO 1 mg TID PRN Administration Anxiety Multivitamins/Minerals 1 each 11/07/18 21:00 11/07/18 20:19 Ivite PO 1 each BID NICKIE Administration Naloxone HCl 0.2 mg 11/07/18 15:18 Narcan IV Q2M PRN Opioid Reversal Pantoprazole Sodium 40 mg 11/08/18 07:30 Protonix PO AC-BRKFST NICKIE Risperidone 0.5 mg 11/07/18 21:00 11/07/18 20:19 Risperdal PO 0.5 mg HS NICKIE Administration Tamsulosin HCl 0.4 mg 11/08/18 09:00 Flomax PO DAILY [facility]IE Tamsulosin HCl 0.4 mg 11/07/18 21:00 11/07/18 20:19 Flomax PO 0.4 mg HS NICKIE Administration Temazepam 15 mg 11/07/18 21:00 11/07/18 20:19 Restoril PO 15 mg HS NICKIE Administration Intake and Output 11/07/18 11/08/18 11/08/18 22:59 06:59 14:59 Intake Total 100 1430 Output Total 500 Balance 100 930 Intake: IV 1080 Sodium Chloride 0.9% 1, 1080 000 ml @ 120 mls/hr IV . Q8H20M [facility] Rx#:[id number] Oral 100 350 Output: Urine 500 Other: Voiding Method Indwelling Catheter Indwelling Catheter Weight 82 kg 11/08/18 07:06 11/08/18 07:06
--- NOTE | 2018-11-08 10:54 | P.PN ---
Subjective Progress Note Date: 11/08/18 This is a 83-year-old male patient of Dr. Joseph. Patient presented to the emergency room complaining of multiple falls that has been occurring over the past 2 days. She denies tripping. Per patient fell out of bed. Patient also states he is having chest pain. Patient does follow with cardiology services. Patient does appear to be a poor historian. Family is at bedside. She doesn't past medical history of diabetes mellitus, GERD, hyperlipidemia, hypertension, myocardial infarction, pneumonia, sleep apnea and thyroid answer. patient also states he has history of heart cath with stents. Last heart cath was in 2013. Chest x-ray completed showing elevated right pepito-diaphragm neck with right basilar consolidation which may be related to atelectasis rather than pneumonia correlate clinically for confirmation. Cardiomegaly. CT of head completed showing degenerative and nonspecific white matter changes most typical remote ischemia. EKG completed showing sinus bradycardia with heart rate 58. Creatinine 2.45 and bun 41 potassium also elevated at 5.2. Patient also states he fell on Thanksgiving his back at this time. Patient denies any back x-rays being completed. Dr. Sauer will be consulted for nephrology services. Dr. Sparks has been consulted for cardiology services. Patient does complain of some burning with urination. Urinary analysis has been ordered. Denies cough or shortness breath. Denies nausea vomiting or diarrhea. On 11/08/2018 patient is currently resting in bed. Patient does appear more confused than yesterday. Patient also went into atrial fibrillation last night. Cardiology services are following and recommending eliquis for anticoagulation. Patient also continued to have tremor. Patient is on multiple psych medications. Recommending neurology consult for further evaluation. Patient also to be transferred to cardiac stepdown unit for closer monitoring. Objective - Vital Signs Vital signs: Vital Signs Temp 97.8 F 11/08/18 08:00 Pulse 107 H 11/08/18 08:45 Resp 18 11/08/18 08:45 BP 173/83 11/08/18 08:00 Pulse Ox 92 L 11/08/18 08:00 Intake & Output 11/07/18 11/08/18 11/08/18 18:59 06:59 18:59 Intake Total 100 1430 Output Total 500 Balance 100 930 Weight 82 kg Intake: IV 1080 Sodium Chloride 0.9% 1, 1080 000 ml @ 120 mls/hr IV . Q8H20M [facility] Rx#:[id number] Oral 100 350 Output: Urine 500 Other: Voiding Method Indwelling Catheter Indwelling Catheter Indwelling Catheter - Exam Head normocephalic Neck supple Lungs clear to auscultation bilaterally no wheezing or crackles Heart regular rate and rhythm S1-S2, no rub or gallop Abdomen is soft nontender nondistended positive bowel sounds no hepatosplenomegaly Extremities no edema Neuro alert and orientated to 1. Patient has equal strength to bilateral upper and lower extremities. Patient is able to follow commands. No facial symptoms asymmetry noted. Speech is clear. Patient does have a notable tremor. - Labs CBC & Chem 7: 11/08/18 07:06 11/08/18 07:06 Labs: Abnormal Lab Results - Last 24 Hours (Table) 11/07/18 11/07/18 11/07/18 Range/Units 11:54 11:54 11:54 RBC 4.26 L (4.30-5.90) m/uL Hgb (13.0-17.5) gm/dL Hct (39.0-53.0) % APTT (22.0-30.0) sec Potassium 5.2 H (3.5-5.1) mmol/L Chloride 111 H (98-107) mmol/L Carbon Dioxide 17 L (22-30) mmol/L BUN 41 H (9-20) mg/dL Creatinine 2.45 H (0.66-1.25) mg/dL Glucose 187 H (74-99) mg/dL POC Glucose (mg/dL) (75-99) mg/dL Calcium (8.4-10.2) mg/dL Total Creatine Kinase 319 H (55-170) U/L CK-MB (CK-2) 5.9 H (0.0-2.4) ng/mL Total Protein (6.3-8.2) g/dL Albumin (3.5-5.0) g/dL Free T3 pg/mL 2.6 L (2.8-5.3) pg/ml Urine Protein (Negative) Urine Ketones (Negative) Urine Blood (Negative) Urine Bacteria (None) /hpf Hyaline Casts (0-2) /lpf Urine Mucus (None) /hpf 11/07/18 11/07/18 11/07/18 Range/Units 11:54 15:30 16:17 RBC (4.30-5.90) m/uL Hgb (13.0-17.5) gm/dL Hct (39.0-53.0) % APTT 19.6 L (22.0-30.0) sec Potassium (3.5-5.1) mmol/L Chloride (98-107) mmol/L Carbon Dioxide (22-30) mmol/L BUN (9-20) mg/dL Creatinine (0.66-1.25) mg/dL Glucose (74-99) mg/dL POC Glucose (mg/dL) (75-99) mg/dL Calcium (8.4-10.2) mg/dL Total Creatine Kinase 279 H (55-170) U/L CK-MB (CK-2) 5.0 H (0.0-2.4) ng/mL Total Protein (6.3-8.2) g/dL Albumin (3.5-5.0) g/dL Free T3 pg/mL (2.8-5.3) pg/ml Urine Protein 3+ H (Negative) Urine Ketones Trace H (Negative) Urine Blood Trace H (Negative) Urine Bacteria Occasional H (None) /hpf Hyaline Casts 4 H (0-2) /lpf Urine Mucus Rare H (None) /hpf 11/07/18 11/07/18 11/08/18 Range/Units 17:36 20:22 00:34 RBC (4.30-5.90) m/uL Hgb (13.0-17.5) gm/dL Hct (39.0-53.0) % APTT (22.0-30.0) sec Potassium (3.5-5.1) mmol/L Chloride (98-107) mmol/L Carbon Dioxide (22-30) mmol/L BUN (9-20) mg/dL Creatinine (0.66-1.25) mg/dL Glucose (74-99) mg/dL POC Glucose (mg/dL) 150 H 176 H (75-99) mg/dL Calcium (8.4-10.2) mg/dL Total Creatine Kinase 275 H (55-170) U/L CK-MB (CK-2) 4.5 H (0.0-2.4) ng/mL Total Protein (6.3-8.2) g/dL Albumin (3.5-5.0) g/dL Free T3 pg/mL (2.8-5.3) pg/ml Urine Protein (Negative) Urine Ketones (Negative) Urine Blood (Negative) Urine Bacteria (None) /hpf Hyaline Casts (0-2) /lpf Urine Mucus (None) /hpf 11/08/18 11/08/18 11/08/18 Range/Units 06:48 07:06 07:06 RBC 3.71 L (4.30-5.90) m/uL Hgb 11.8 L (13.0-17.5) gm/dL Hct 36.9 L (39.0-53.0) % APTT (22.0-30.0) sec Potassium (3.5-5.1) mmol/L Chloride 113 H (98-107) mmol/L Carbon Dioxide 20 L (22-30) mmol/L BUN 34 H (9-20) mg/dL Creatinine 2.24 H (0.66-1.25) mg/dL Glucose 170 H (74-99) mg/dL POC Glucose (mg/dL) 63 L (75-99) mg/dL Calcium 8.3 L (8.4-10.2) mg/dL Total Creatine Kinase (55-170) U/L CK-MB (CK-2) (0.0-2.4) ng/mL Total Protein 5.7 L (6.3-8.2) g/dL Albumin 3.1 L (3.5-5.0) g/dL Free T3 pg/mL (2.8-5.3) pg/ml Urine Protein (Negative) Urine Ketones (Negative) Urine Blood (Negative) Urine Bacteria (None) /hpf Hyaline Casts (0-2) /lpf Urine Mucus (None) /hpf 11/08/18 Range/Units 08:13 RBC (4.30-5.90) m/uL Hgb (13.0-17.5) gm/dL Hct (39.0-53.0) % APTT (22.0-30.0) sec Potassium (3.5-5.1) mmol/L Chloride (98-107) mmol/L Carbon Dioxide (22-30) mmol/L BUN (9-20) mg/dL Creatinine (0.66-1.25) mg/dL Glucose (74-99) mg/dL POC Glucose (mg/dL) 142 H (75-99) mg/dL Calcium (8.4-10.2) mg/dL Total Creatine Kinase (55-170) U/L CK-MB (CK-2) (0.0-2.4) ng/mL Total Protein (6.3-8.2) g/dL Albumin (3.5-5.0) g/dL Free T3 pg/mL (2.8-5.3) pg/ml Urine Protein (Negative) Urine Ketones (Negative) Urine Blood (Negative) Urine Bacteria (None) /hpf Hyaline Casts (0-2) /lpf Urine Mucus (None) /hpf Microbiology - Last 24 Hours (Table) 11/07/18 15:30 Urine Culture - Preliminary Urine,Catheterized Assessment and Plan Assessment: 1. Increased weakness with falls. Head CT completed showing degenerative and nonspecific white matter change most typical of remote ischemia. Urinary analysis ordered. 2. Syncopal episode. Cardiology services have been consulted. EKG showing sinus bradycardia. 2-D echo and carotid ultrasound has been ordered. Carotid ultrasound completed showing close to 50% stenosis in both internal carotid arteries more than 50% stenosis in the right external carotid artery. D-dimer has been ordered 3. Chest pain. Initial troponin negative. Cardiac enzymes ordered. Cardiac telemetry ordered. Cardiology services consulted 4. Acute on chronic kidney disease. Creatinine 2.45 and bun 41. Patient's Cozaar held 5. Hyperkalemia. Potassium 5.2. Order 1 dose of Kayexalate. Cozaar held. Repeat in a.m. repeat potassium 3.7 6. Back pain. Patient states he fell a few weeks ago and hurt his back. X- ray thoracic spine completed showing some demineralization with no evidence of acute fracture or dislocation 7. Diabetes mellitus. Home medications held at this time will order sliding scale coverage 8. History of cardiac stent. 9. History of thyroid cancer. 10. Hypothyroidism patient maintained on Synthroid 11. Essential hypertension 12. History of GERD 13. History of anxiety and depression. Home meds resumed 14. Atrial fibrillation 15. Increased confusion. Neurology services consulted 16. Right basal consolidation seen on chest x-ray. Pulmonary services have been consulted 17. Tremor. Neurology services consulted DVT prophylaxis heparin. GI prophylaxis pepcid Case management and social work service is consulted for possible ECF placement Patient to be transferred to cardiac stepdown unit for closer monitoring D-dimer has been ordered Neurology and pulmonary consult placed I performed an examination of the patient and discussed their management with the Nurse Practitioner. I have reviewed the Nurse Practitioner's notes and agree with the documented findings and plan of care
--- NOTE | 2018-11-08 11:05 | ECHOF ---
Referral Reason:chest pain, syncopal epidsode MEASUREMENTS -------- HEIGHT: 175.3 cm WEIGHT: 90.7 kg BP: IVSd: 1.5 cm (0.6 - 1.1) LVIDd: 4.0 cm (3.9 - 5.3) LVPWd: 1.7 cm (0.6 - 1.1) IVSs: 1.8 cm LVIDs: 4.5 cm LVPWs: 1.3 cm LA Diam: 5.6 cm (2.7 - 3.8) LAESV Index (A-L): 38.73 ml/m Ao Diam: 3.6 cm (2.0 - 3.7) AV Cusp: 1.6 cm (1.5 - 2.6) EPSS: 1.8 cm MV E Joby: 0.58 m/s MV DecT: 135 ms MV A Joby: 0.86 m/s MV E/A Ratio: 0.68 RAP: 5.00 mmHg RVSP: 21.24 mmHg MV EF SLOPE: 45.16 mm/s (70 - 150) MV EXCURSION: 1.56 cm (> 18.000) FINDINGS -------- Sinus rhythm. This was a technically adequate study. The left ventricular size is normal. There is moderate concentric left ventricular hypertrophy. O verall left ventricular systolic function is normal with, an EF between 55 - 60 %. Mitral Doppler i nflow pattern suggests diastolic filling abnormality 15.22. The right ventricle is normal in size. The left atrial size is normal. LA is severely dilated >40 ml/m2 The right atrial size is normal. There is mild aortic valve sclerosis. There is no evidence of aortic regurgitation. Mild mitral annular calcification present. Mild mitral regurgitation is present. No regurgitation noted There is no evidence of pulmonary hypertension. The right ventricular syst olic pressure, as measured by Doppler, is 21.24mmHg. There is no pulmonic regurgitation present. The aortic root size is normal. There is no pericardial effusion. CONCLUSIONS -------- 1. The left ventricular size is normal. 2. There is moderate concentric left ventricular hypertrophy. 3. Overall left ventricular systolic function is normal with, an EF between 55 - 60 %. 4. Mitral Doppler inflow pattern suggest diastolic filling abnormality 15.22. 5. The right ventricle is normal in size. 6. The left atrial size is normal. 7. LA is severely dilated >40 ml/m2 8. The right atrial size is normal. 9. There is mild aortic valve sclerosis. 10. Mild mitral annular calcification present. 11. Mild mitral regurgitation is present. 12. No regurgitation noted 13. There is no evidence of pulmonary hypertension. 14. The right ventricular systolic pressure, as measured by Doppler, is 21.24mmHg. 15. There is no pulmonic regurgitation present. 16. The aortic root size is normal. 17. There is no pericardial effusion. [employer] SUPERVISOR: Rosario Vogel RDCS
[2018-11-08 11:50] LABS: Glucose,Whole Blood 213 mg/dL (75-99)
[2018-11-08] MEDS: HEPARIN SODIUM,PORCINE 5,000 UNIT/ML 1 ML VIAL SQ SCH (15:44)
--- NOTE | 2018-11-08 16:19 | P.CNPUL ---
History of Present Illness Consult date: 11/08/18 Requesting physician: Jasmyne Pizano Reason for consult: dyspnea Chief complaint: chest pain, nausea, diaphoresis, generalized weakness History of present illness: This is a 83-year-old white male patient of Dr. Joseph, who was brought into the emergency department on 11/07/2018 from physician's office per EMS, for evaluation generalized weakness. Patient is a poor historian. He had some complaints of palpitations. he has been having chest discomfort for the past 3- 4 weeks, across his accordion, with no radiation, at rest, with nausea, and diaphoresis. Patient also had a couple falls over the last couple of days, he denied any injuries. Patient denied loss of consciousness. He has been having generalized weakness for a very long time, seems to be weaker. Past medical history is positive for diabetes mellitus, GERD/reflux, hypertension, hyperlipidemia, previous episode of myocardial infarction, pneumonia, sleep apnea not using CPAP, hypothyroidism, coronary artery disease with previous stenting, anxiety, depression, patient is a former smoker. Patient is not oxygen dependent, denies any chronic lung disease. [place] any shortness of breath , no cough, no chest congestion. No fever or chills, no phlegm production. No nausea, no vomiting, no diarrhea. Chest x-ray showed elevated right hemidiaphragm with right basilar consolidation which may be related to atelectasis. Cardiomegaly. CT of the head completed showing degenerative and nonspecific white matter changes most typical remote ischemia. EKG showed sinus bradycardia with a heart rate of 58. Thoracic spine show some demineralization, no evidence of acute fracture or dislocation.echocardiogram showed moderate concentric left ventricular hypertrophy, EF between 55-60%, no evidence of aortic regurgitation, mild mitral regurgitation, no evidence of pulmonary hypertension. carotid ultrasound showed no hemodynamically significant stenosis.lab work showed slightly elevated d-dimer of 0.71, potassium of 5.2, chloride is 111, impaired renal function with BUN of 41, creatinine of 2.45. urinalysis showed 3+ protein, ketones and blood, occasional bacteria. Room air pulse ox of 97. We're seeing this patient in consultation right basilar consolidation likely related to atelectasis, doubt pneumonia Review of Systems All systems: negative Constitutional: Denies chills, Denies fever Eyes: denies blurred vision, denies pain Ears, nose, mouth and throat: Denies headache, Denies sore throat Cardiovascular: Reports chest pain, Denies shortness of breath Respiratory: Denies cough Gastrointestinal: Denies abdominal pain, Denies diarrhea, Denies nausea, Denies vomiting Musculoskeletal: Denies myalgias Integumentary: Denies pruritus, Denies rash Neurological: Denies numbness, Denies weakness Psychiatric: Denies anxiety, Denies depression Endocrine: Denies fatigue, Denies weight change Past Medical History Past Medical History: Coronary Artery Disease (CAD), Cancer, Diabetes Mellitus, GERD/Reflux, Hyperlipidemia, Hypertension, Myocardial Infarction ([place]), Pneumonia , Prostate Disorder, Sleep Apnea/CPAP/BIPAP, Thyroid Disorder Additional Past Medical History / Comment(s): no CPAP used, hiatal hernia, hx thyroid cancer, macular degeneration danielle eyes Last Myocardial Infarction Date:: 1999 History of Any Multi-Drug Resistant Organisms: None Reported Past Surgical History: Heart Catheterization With Stent, Joint Replacement Additional Past Surgical History / Comment(s): left knee replacement, danielle cataracts, thyroidectomy Past Anesthesia/Blood Transfusion Reactions: No Reported Reaction Additional Past Anesthesia/Blood Transfusion Reaction / Comment(s): clausterphobia -"uses open mri" Date of Last Stent Placement:: 1999 Smoking Status: Former smoker - Past Family History Father Family Medical History: Cancer Mother Family Medical History: Cancer Medications and Allergies Home Medications Medication Instructions Recorded Confirmed Type Aspirin 325 mg PO DAILY 09/29/14 11/07/18 History Atenolol [Tenormin] 25 mg PO DAILY 09/29/14 11/07/18 History Citalopram Hydrobromide [CeleXA] 20 mg PO AC-SUPPER 09/29/14 11/07/18 History Citalopram Hydrobromide 40 mg PO DAILY 09/29/14 11/07/18 History [Citalopram HBr] Eszopiclone [Lunesta] 3 mg PO HS 09/29/14 11/07/18 History LORazepam [Ativan] 1 mg PO TID 09/29/14 11/07/18 History Levothyroxine Sodium [Synthroid] 88 mcg PO DAILY 09/29/14 11/07/18 History Losartan Potassium [Cozaar] 100 mg PO DAILY 09/29/14 11/07/18 History Multivitamins, Thera [Multivitamin] 1 each PO DAILY 09/29/14 11/07/18 History Omeprazole [PriLOSEC] 20 mg PO BID 09/29/14 11/07/18 History Restaisi(Dose Unknown) 1 drop BOTH EYES BID 09/29/14 11/07/18 History Saxagliptin HCl [Onglyza] 5 mg PO AC-SUPPER 09/29/14 11/07/18 History Simvastatin [Zocor] 40 mg PO HS 09/29/14 11/07/18 History Tamsulosin HCl [Flomax] 0.4 mg PO DAILY 09/29/14 11/07/18 History buPROPion [Wellbutrin] 75 mg PO HS 09/29/14 11/07/18 History buPROPion [Wellbutrin] 150 mg PO QAM 09/29/14 11/07/18 History glipiZIDE [Glucotrol] 10 mg PO TID 09/29/14 11/07/18 History risperiDONE [RisperDAL] 0.5 mg PO HS 09/29/14 11/07/18 History Cyanocobalamin [Vitamin B-12] 500 mcg PO DAILY 11/07/18 11/07/18 History Diphenox-Atrop 2.5-0.025 mg 1 tab PO Q4-6H PRN 11/07/18 11/07/18 History [Lomotil] Linagliptin [Tradjenta] 5 mg PO DAILY 11/07/18 11/07/18 History Loratadine [Claritin] 10 mg PO DAILY 11/07/18 11/07/18 History [place]-3 Fatty Acids/Fish Oil [Fish 1 cap PO DAILY 11/07/18 11/07/18 History Oil 1,000 mg Softgel] Tamsulosin HCl [Flomax] 0.4 mg PO HS 11/07/18 11/07/18 History Vit C/E/Zn/Coppr/Lutein/Zeaxan 1 cap PO BID 11/07/18 11/07/18 History [Preservision Areds 2 Softgel] metFORMIN HCL 1,000 mg PO BID 11/07/18 11/07/18 History Allergies Allergy/AdvReac Type Severity Reaction Status Date / Time No Known Allergies Allergy Verified 11/07/18 12:22 Physical Exam Vitals: Vital Signs Temp Pulse Pulse Resp BP BP BP 11/08/18 15:43 97.7 F 55 L 20 142/75 11/08/18 12:00 69 18 11/08/18 11:29 97.5 F L 69 18 124/74 11/08/18 08:45 107 H 18 11/08/18 08:00 97.8 F 110 H 18 173/83 11/08/18 04:00 98.3 F 63 16 167/74 11/08/18 03:18 18 11/07/18 23:49 18 11/07/18 23:34 97.8 F 57 L 18 164/72 11/07/18 20:00 18 11/07/18 18:25 66 18 169/74 11/07/18 17:30 98.7 F 64 20 211/70 11/07/18 17:00 98.2 F 62 20 183/83 Pulse Ox 11/08/18 15:43 97 11/08/18 12:00 11/08/18 11:29 97 11/08/18 08:45 11/08/18 08:00 92 L 11/08/18 04:00 92 L 11/08/18 03:18 11/07/18 23:49 11/07/18 23:34 94 L 11/07/18 20:00 11/07/18 18:25 94 L 11/07/18 17:30 96 11/07/18 17:00 96 Intake and Output 11/08/18 11/08/18 11/08/18 06:59 14:59 22:59 Intake Total 1430 480 Output Total 500 1200 Balance 930 -720 Intake: IV 1080 Sodium Chloride 0.9% 1, 1080 000 ml @ 120 mls/hr IV . Q8H20M [facility] Rx#:[id number] Oral 350 480 Output: Urine 500 1200 Uretheral (Lamas) 1200 Other: Voiding Method Indwelling Catheter Indwelling Catheter GENERAL EXAM: A bit drowsy, but arousable, and answering appropriately, 83-year -old white male, slow to respond, comfortable in no apparent distress. HEAD: Normocephalic/atraumatic. EYES: Normal reaction of pupils, equal size. Conjunctiva pink, sclera white. NOSE: Clear with pink turbinates. THROAT: No erythema or exudates. NECK: No masses, no JVD, no thyroid enlargement, no adenopathy. CHEST: No chest wall deformity. Symmetrical expansion. LUNGS: Equal air entry with no crackles, wheeze, rhonchi or dullness. diminished breath sounds at the right base CVS: Regular rate and rhythm, normal S1 and S2, no gallops, no murmurs, no rubs ABDOMEN: Soft, nontender. No hepatosplenomegaly, normal bowel sounds, no guarding or rigidity. EXTREMITIES: No clubbing, no edema, no cyanosis, 2+ pulses and upper and lower extremities. MUSCULOSKELETAL: Muscle strength and tone normal. SPINE: No scoliosis or deformity SKIN: No rashes CENTRAL NERVOUS SYSTEM: Alert and oriented -3. No focal deficits, tone is normal in all 4 extremities. PSYCHIATRIC: Alert and oriented -3. Appropriate affect. Intact judgment and insight. Results - Laboratory Findings CBC and BMP: 11/08/18 07:06 11/08/18 07:06 PT/INR, D-dimer PT 10.8 sec (9.0-12.0) 11/07/18 11:54 INR 1.0 (<1.2) 11/07/18 11:54 D-Dimer 0.71 mg/L FEU (<0.60) H 11/08/18 11:37 Abnormal lab findings: Abnormal Labs 11/07/18 11/07/18 11/07/18 11:54 11:54 11:54 RBC 4.26 L Hgb Hct APTT D-Dimer Potassium 5.2 H Chloride 111 H Carbon Dioxide 17 L BUN 41 H Creatinine 2.45 H Glucose 187 H POC Glucose (mg/dL) Calcium Total Creatine Kinase 319 H CK-MB (CK-2) 5.9 H Total Protein Albumin Free T3 pg/mL 2.6 L Urine Protein Urine Ketones Urine Blood Urine Bacteria Hyaline Casts Urine Mucus 11/07/18 11/07/18 11/07/18 11:54 15:30 16:17 RBC Hgb Hct APTT 19.6 L D-Dimer Potassium Chloride Carbon Dioxide BUN Creatinine Glucose POC Glucose (mg/dL) Calcium Total Creatine Kinase 279 H CK-MB (CK-2) 5.0 H Total Protein Albumin Free T3 pg/mL Urine Protein 3+ H Urine Ketones Trace H Urine Blood Trace H Urine Bacteria Occasional H Hyaline Casts 4 H Urine Mucus Rare H 11/07/18 11/07/18 11/08/18 17:36 20:22 00:34 RBC Hgb Hct APTT D-Dimer Potassium Chloride Carbon Dioxide BUN Creatinine Glucose POC Glucose (mg/dL) 150 H 176 H Calcium Total Creatine Kinase 275 H CK-MB (CK-2) 4.5 H Total Protein Albumin Free T3 pg/mL Urine Protein Urine Ketones Urine Blood Urine Bacteria Hyaline Casts Urine Mucus 11/08/18 11/08/18 11/08/18 06:48 07:06 07:06 RBC 3.71 L Hgb 11.8 L Hct 36.9 L APTT D-Dimer Potassium Chloride 113 H Carbon Dioxide 20 L BUN 34 H Creatinine 2.24 H Glucose 170 H POC Glucose (mg/dL) 63 L Calcium 8.3 L Total Creatine Kinase CK-MB (CK-2) Total Protein 5.7 L Albumin 3.1 L Free T3 pg/mL Urine Protein Urine Ketones Urine Blood Urine Bacteria Hyaline Casts Urine Mucus 11/08/18 11/08/18 11/08/18 08:13 11:37 11:47 RBC Hgb Hct APTT D-Dimer 0.71 H Potassium Chloride Carbon Dioxide BUN Creatinine Glucose POC Glucose (mg/dL) 142 H 213 H Calcium Total Creatine Kinase CK-MB (CK-2) Total Protein Albumin Free T3 pg/mL Urine Protein Urine Ketones Urine Blood Urine Bacteria Hyaline Casts Urine Mucus - Diagnostic Findings Chest x-ray: report reviewed, image reviewed Additional studies: results of the brain CT, thoracic spine x-ray, echocardiogram, carotid Doppler , EKG reviewed Assessment and Plan Plan: assessment: #1. Elevated right hemidiaphragm, right lower lobe density, likely related to atelectasis, doubt pneumonia. patient denied any cough, shortness of breath, afebrile, no leukocytosis #2. Increased weakness and falls #3. Chest discomfort, cardiology is following #4. Acute kidney injury #5. diabetes mellitus type 2 #6. Coronary artery disease with previous stenting #7. Hypothyroidism #8. Hypertension #9. Paroxysmal atrial fibrillation #10. Anxiety, depression #11. History of nicotine dependence, currently in remission #12. Ischemic cardiomyopathy status post acute myocardial infarction Plan: Chest x-ray was reviewed by Dr. Marin, right hemidiaphragm is elevated, and there is right lower lobe density, related to atelectasis, doubt pneumonia. He denies any pulmonary symptoms, no shortness of breath, no cough, no fever, no chills, no phlegm production. currently denies any chest pain, is quite comfortable laying in bed, denies any specific complaints at this time. Denies any history of chronic lung disease, patient is an ex-smoker. Cardiology is following. Vital signs are stable. I performed a history & physical examination of the patient and discussed their management with my nurse practitioner, Jody Whitfield. I reviewed the nurse practitioner's note and agree with the documented findings and plan of care. Lung sounds are positive diminished breath sounds, particularly at the right base. The findings and the impression was discussed with the patient. I attest to the documentation by the nurse practitioner. Time with Patient: Greater than 30
[2018-11-08 17:05] LABS: Glucose,Whole Blood 178 mg/dL (75-99)
[2018-11-08] MEDS ORDERED: LORazepam 2 MG/ML INJ IV STA (18:02)
--- NOTE | 2018-11-08 19:08 | CONS ---
CONSULTATION REASON FOR CONSULT: Renal failure. HISTORY OF PRESENT ILLNESS: Patient is an 83-year-old male who was admitted to the hospital with a history of falls. He states he was feeling weak. He denied any previous history of kidney disease. Serum creatinine was 2.45 on admission with potassium of 5.2. Blood pressure was not low on admission; in fact, it was a bit on the higher side. Home medications do include Cozaar. Patient was also on metformin. He denies use of any nonsteroidal anti-inflammatory agents prior to admission. It appears that patient had urinary retention in the ER. A Lamas catheter was placed and it seems that 1200 mL was obtained. Patient is currently maintained on IV fluids as well. PAST MEDICAL HISTORY: 1. Coronary artery disease. 2. Gastroesophageal reflux disease. 3. Hypertension. 4. Hyperlipidemia. 5. Obstructive sleep apnea. 6. Hypothyroidism. PAST SURGICAL HISTORY: 1. Cardiac catheterization. 2. Coronary stent placement. 3. Left knee arthroplasty. 4. Cataract surgery. SOCIAL HISTORY: Patient is a former smoker. No history of drug abuse or alcohol abuse. HOME MEDICATIONS: Home medications prior to admission included: 1. Tenormin. 2. Aspirin. 3. Celexa. 4. Ativan. 5. Synthroid. 6. Cozaar. 7. Prilosec. 8. Zocor. 9. Cozaar. 10.Multivitamins. 11.Prilosec. 12.Flomax. 13.Wellbutrin. 14.Glucotrol. 15.Risperdal. 16.B12. 17.Lomotil. 18.Claritin. 19.Tradjenta. 20.Metformin. ALLERGIES: NONE. PHYSICAL EXAMINATION: Patient is comfortable, awake. He is confused. He is not in any acute distress. Blood pressure was 124/74, heart rate 69 per minute. Patient is afebrile. EXAMINATION OF THE HEART: S1, S2. EXAMINATION OF LUNGS: Bilateral breath sounds are heard. ABDOMEN: Soft, non-tender. Examination of lower extremities shows no evidence of edema. 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 Labs show sodium 140, potassium 3.7, chloride 113, CO2 20, BUN 34, serum creatinine 2.24. Hemoglobin was 11.8 g/dL. ASSESSMENT: 1. Acute kidney injury secondary to urine retention as well as possible component of intravascular volume depletion. Continue with IV fluids. Continue with indwelling Lamas catheter. Patient is also maintained on Flomax, which we will continue for now. 2. Chronic kidney disease. Previous creatinine is noted to be 1.25 in 2017 and 1.5 in 2014. UA shows 3+ protein and trace blood. This will need further workup. 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 3. Dyslipidemia, maintained on Lipitor. 4. Hypertension, currently controlled. 5. Benign prostatic hypertrophy with obstructive uropathy, currently with indwelling Lamas catheter. PLAN: Continue with IV fluids. Continue Lamas catheter. Repeat labs in a.m. Avoid nephrotoxic agents. Hold off on angiotensin receptor blockers for now. Thank you for this consultation. Will continue to follow the patient with you during his hospitalization. MMODL / IJN: [id number] /
--- NOTE | 2018-11-08 19:34 | MR ---
EXAMINATION TYPE: MR brain wo con DATE OF EXAM: 11/08/2018 COMPARISON: 08/18/2011 HISTORY: Dizziness Standard multiplanar, multisequence MRI departmental protocol Multiplanar, multisequence images of the brain were acquired. Diffusion weighted imaging was performe d. FINDINGS: There is diffuse cerebral cortical atrophy. There is no mass effect nor midline shift. Ther e is no sign of intracranial hemorrhage. On the diffusion images there is a 1 cm focus of increased s ignal in the right posterior parietal lobe white matter. On the FLAIR images there is diffuse increas ed signal in the periventricular white matter with areas that measure up to 2 cm. The brain stem is i ntact. There is some thinning of the corpus callosum. Sella turcica appears normal. IMPRESSION: Extensive white matter changes probably due to chronic small vessel ischemia that show significant pr ogression compared to old exam. There is probably an acute lacunar infarct right posterior parietal l obe white matter.
[2018-11-08] MEDS: ATORVASTATIN 20 MG TAB PO SCH (20:18)
[2018-11-08] MEDS: APIXABAN 2.5 MG TABLET PO SCH (20:19)
[2018-11-08] MEDS: risperiDONE 0.5 MG TAB PO SCH (20:19)
[2018-11-08] MEDS: TEMAZEPAM 15 MG CAP PO SCH (20:19)
[2018-11-08 20:31] LABS: Glucose,Whole Blood 173 mg/dL (75-99)
[2018-11-08] MEDS ORDERED: HALOPERIDOL LACTATE 5 MG/ML 1 ML VIAL IVP PRN (20:52)
--- NOTE | 2018-11-08 21:15 | P.CNNES ---
History of Present Illness Consult date: 11/08/18 Requesting physician: Lanny Bermudez Reason for Consult: Confusion and tremor Chief complaint: Tremor History of Present Illness: Neurology is consulting an 83-year-old male for tremor and confusion. He was brought to the ED on 11/07/18 after multiple falls that are been occurring in the past 2 days. Patient's spouse states that he was having chest pain. He does follow with cardiology. Patient has a known medical history including diabetes, GERD, hyperlipidemia, hypertension, [place], pneumonia, sleep apnea and thyroid. Patient has a previous history also of heart catheterization with stents. Last heart cath was in 2013. Chest x-ray showed elevated right hemidiaphragm with basilar consolidation which may be related to atelectasis. CT brain showed degenerative and nonspecific white matter changes most typical with remote ischemia. EKG showed sinus bradycardia. Patient stated he also fell on Thanksgiving. Nephrology and cardiology are already on consult. Patient does have complaints of burning with urination. on 11/08/18 patient was observed to be confused and previous day by hospitalist and also had new onset atrial fibrillation. Cardiology was consulted and Eliquis was started. Patient also exhibited tremor. Patient is known to be on multiple psychiatric medications. Neurology was on consult for tremor and confusion. On contact, patient was alert and oriented 1, resting in bed. Nurse was in the room administering medications at time of contact. No family or visitors were in the room. He did not have any obvious tremor but did decline significantly during physical assessment. See Assessment and plan for full details. Review of Systems systems not noted in HPI are negative Past Medical History Past Medical History: Coronary Artery Disease (CAD), Cancer, Diabetes Mellitus, GERD/Reflux, Hyperlipidemia, Hypertension, Myocardial Infarction ([place]), Pneumonia , Prostate Disorder, Sleep Apnea/CPAP/BIPAP, Thyroid Disorder Additional Past Medical History / Comment(s): no CPAP used, hiatal hernia, hx thyroid cancer, macular degeneration danielle eyes Last Myocardial Infarction Date:: 1999 History of Any Multi-Drug Resistant Organisms: None Reported Past Surgical History: Heart Catheterization With Stent, Joint Replacement Additional Past Surgical History / Comment(s): left knee replacement, danielle cataracts, thyroidectomy Past Anesthesia/Blood Transfusion Reactions: No Reported Reaction Additional Past Anesthesia/Blood Transfusion Reaction / Comment(s): clausterphobia -"uses open mri" Date of Last Stent Placement:: 1999 Smoking Status: Former smoker - Past Family History Father Family Medical History: Cancer Mother Family Medical History: Cancer Medications and Allergies Home Medications Medication Instructions Recorded Confirmed Type Aspirin 325 mg PO DAILY 09/29/14 11/07/18 History Atenolol [Tenormin] 25 mg PO DAILY 09/29/14 11/07/18 History Citalopram Hydrobromide [CeleXA] 20 mg PO AC-SUPPER 09/29/14 11/07/18 History Citalopram Hydrobromide 40 mg PO DAILY 09/29/14 11/07/18 History [Citalopram HBr] Eszopiclone [Lunesta] 3 mg PO HS 09/29/14 11/07/18 History LORazepam [Ativan] 1 mg PO TID 09/29/14 11/07/18 History Levothyroxine Sodium [Synthroid] 88 mcg PO DAILY 09/29/14 11/07/18 History Losartan Potassium [Cozaar] 100 mg PO DAILY 09/29/14 11/07/18 History Multivitamins, Thera [Multivitamin] 1 each PO DAILY 09/29/14 11/07/18 History Omeprazole [PriLOSEC] 20 mg PO BID 09/29/14 11/07/18 History Restaisi(Dose Unknown) 1 drop BOTH EYES BID 09/29/14 11/07/18 History Saxagliptin HCl [Onglyza] 5 mg PO AC-SUPPER 09/29/14 11/07/18 History Simvastatin [Zocor] 40 mg PO HS 09/29/14 11/07/18 History Tamsulosin HCl [Flomax] 0.4 mg PO DAILY 09/29/14 11/07/18 History buPROPion [Wellbutrin] 75 mg PO HS 09/29/14 11/07/18 History buPROPion [Wellbutrin] 150 mg PO QAM 09/29/14 11/07/18 History glipiZIDE [Glucotrol] 10 mg PO TID 09/29/14 11/07/18 History risperiDONE [RisperDAL] 0.5 mg PO HS 09/29/14 11/07/18 History Cyanocobalamin [Vitamin B-12] 500 mcg PO DAILY 11/07/18 11/07/18 History Diphenox-Atrop 2.5-0.025 mg 1 tab PO Q4-6H PRN 11/07/18 11/07/18 History [Lomotil] Linagliptin [Tradjenta] 5 mg PO DAILY 11/07/18 11/07/18 History Loratadine [Claritin] 10 mg PO DAILY 11/07/18 11/07/18 History [place]-3 Fatty Acids/Fish Oil [Fish 1 cap PO DAILY 11/07/18 11/07/18 History Oil 1,000 mg Softgel] Tamsulosin HCl [Flomax] 0.4 mg PO HS 11/07/18 11/07/18 History Vit C/E/Zn/Coppr/Lutein/Zeaxan 1 cap PO BID 11/07/18 11/07/18 History [Preservision Areds 2 Softgel] metFORMIN HCL 1,000 mg PO BID 11/07/18 11/07/18 History Allergies Allergy/AdvReac Type Severity Reaction Status Date / Time No Known Allergies Allergy Verified 11/07/18 12:22 Physical Examination - Vital Signs Vital Signs: Vital Signs Temp Pulse Resp BP BP Pulse Ox 11/08/18 20:00 97.8 F 57 L 18 169/77 94 L 11/08/18 15:43 97.7 F 55 L 20 142/75 97 11/08/18 12:00 69 18 11/08/18 11:29 97.5 F L 69 18 124/74 97 11/08/18 08:45 107 H 18 11/08/18 08:00 97.8 F 110 H 18 173/83 92 L 11/08/18 04:00 98.3 F 63 16 167/74 92 L 11/08/18 03:18 18 11/07/18 23:49 18 11/07/18 23:34 97.8 F 57 L 18 164/72 94 L Intake and Output 11/08/18 11/08/18 11/08/18 06:59 14:59 22:59 Intake Total 1430 480 Output Total 500 1200 Balance 930 -720 Intake: IV 1080 Sodium Chloride 0.9% 1, 1080 000 ml @ 120 mls/hr IV . Q8H20M [facility] Rx#:[id number] Oral 350 480 Output: Urine 500 1200 Uretheral (Lamas) 1200 Other: Voiding Method Indwelling Catheter Indwelling Catheter Indwelling Catheter General appearance: Alert & oriented x1, no apparent distress. Head: Atraumatic, normocephalic, normal inspection Eyes: PERRLA, EOMI. Ear, nose and throat: Normal exam, mucous membranes moist Neck: Normal inspection, absent tenderness, lymphadenopathy. Respiratory: No increased work of breathing Cardiovascular: Regular rate, rhythm GI/abdominal: No guarding, no rigidity Extremities: moves all extremities Neurological: cranial nerves II through XII intact-grossly however nystagmus is noted left lower extremity lateralizing weakness no seizure activity noted on physical exam no pronator drift nystagmus noted on physical exam with visual tracking both the left and to the right. Strength: left upper extremity 4- out of 5 Right upper extremity 4- out of 5 Left lower extremity 3+ out of 5 Right lower extremity 4 out of 5 Sensation: Left lower extremity: normal Right lower extremity: normal Left upper extremity: normal Right upper extremity:normal Psychological: confused Results carotid Doppler: Antegrade flow in the vertebral arteries, images and measurements suggest close to 50% stenosis in both internal carotid arteries and more than 50% stenosis in the right external carotid artery. EEG: Ordered Serum homocysteine level: Ordered Lipid panel: Ordered CT brain: Degenerative and nonspecific white matter changes most typical of remote ischemia MRI brain:extensive white matter changes probably due to chronic small vessel ischemia that show significant progression compared to old exam. There is probably an acute lacunar infarct right posterior lobe white matter. comparative exam date is 08/18/11 - Laboratory Findings CBC and BMP: 11/08/18 07:06 11/08/18 07:06 Abnormal Lab Findings: Abnormal Labs 11/07/18 11/07/18 11/07/18 11:54 11:54 11:54 RBC 4.26 L Hgb Hct APTT D-Dimer Potassium 5.2 H Chloride 111 H Carbon Dioxide 17 L BUN 41 H Creatinine 2.45 H Glucose 187 H POC Glucose (mg/dL) Calcium Total Creatine Kinase 319 H CK-MB (CK-2) 5.9 H Total Protein Albumin Free T3 pg/mL 2.6 L Urine Protein Urine Ketones Urine Blood Urine Bacteria Hyaline Casts Urine Mucus 11/07/18 11/07/18 11/07/18 11:54 15:30 16:17 RBC Hgb Hct APTT 19.6 L D-Dimer Potassium Chloride Carbon Dioxide BUN Creatinine Glucose POC Glucose (mg/dL) Calcium Total Creatine Kinase 279 H CK-MB (CK-2) 5.0 H Total Protein Albumin Free T3 pg/mL Urine Protein 3+ H Urine Ketones Trace H Urine Blood Trace H Urine Bacteria Occasional H Hyaline Casts 4 H Urine Mucus Rare H 11/07/18 11/07/18 11/08/18 17:36 20:22 00:34 RBC Hgb Hct APTT D-Dimer Potassium Chloride Carbon Dioxide BUN Creatinine Glucose POC Glucose (mg/dL) 150 H 176 H Calcium Total Creatine Kinase 275 H CK-MB (CK-2) 4.5 H Total Protein Albumin Free T3 pg/mL Urine Protein Urine Ketones Urine Blood Urine Bacteria Hyaline Casts Urine Mucus 11/08/18 11/08/18 11/08/18 06:48 07:06 07:06 RBC 3.71 L Hgb 11.8 L Hct 36.9 L APTT D-Dimer Potassium Chloride 113 H Carbon Dioxide 20 L BUN 34 H Creatinine 2.24 H Glucose 170 H POC Glucose (mg/dL) 63 L Calcium 8.3 L Total Creatine Kinase CK-MB (CK-2) Total Protein 5.7 L Albumin 3.1 L Free T3 pg/mL Urine Protein Urine Ketones Urine Blood Urine Bacteria Hyaline Casts Urine Mucus 11/08/18 11/08/18 11/08/18 08:13 11:37 11:47 RBC Hgb Hct APTT D-Dimer 0.71 H Potassium Chloride Carbon Dioxide BUN Creatinine Glucose POC Glucose (mg/dL) 142 H 213 H Calcium Total Creatine Kinase CK-MB (CK-2) Total Protein Albumin Free T3 pg/mL Urine Protein Urine Ketones Urine Blood Urine Bacteria Hyaline Casts Urine Mucus 11/08/18 11/08/18 17:03 20:29 RBC Hgb Hct APTT D-Dimer Potassium Chloride Carbon Dioxide BUN Creatinine Glucose POC Glucose (mg/dL) 178 H 173 H Calcium Total Creatine Kinase CK-MB (CK-2) Total Protein Albumin Free T3 pg/mL Urine Protein Urine Ketones Urine Blood Urine Bacteria Hyaline Casts Urine Mucus Assessment and Plan (1) Lacunar infarct, acute Narrative/Plan: On physical exam, patient exhibited extreme nystagmus to the right and to the left. Finger to nose testing, patient had almost immediate blurry vision elicited. Patient began becoming extremely confused with provider and nurse in the room. Nurse stated that this was significantly different than her physical assessment a couple hours previous. Patient declined from alert and oriented 2 3 to alert and oriented 1 within minutes while provider was in the room conducting physical assessment. Stat MRI of the brain was ordered. Patient was unable to have with and without contrast due to the decreased kidney function. Based on patient's MRI of the brain, does appear that the patient has an acute lacunar infarct at this time. Based on the underlying etiology of patient's infarct, it is possible that the patient's lower extremity difficulty with ambulation and/or weakness could have been early signs of symptoms of looming stroke. At this point, the patient's new onset tremor appears more consistent as sequela of acute stroke. We will continue to monitor and reassess for the next 48-72 hours. patient's EEG is pending. Serum homocysteine level and updated lipid panel also pending. Patient is currently on anticoagulant Eliquis at this time cardiology. Eliquis to be maintained with 81 mg aspirin daily. Patient was on low-dose Lipitor which will be increased to 40 mg at this time. Recommend speech, PT, OT consult. Continued neuro checks consistent with acute stroke protocol. Neurology to be notified with any new status changes neurologically. Status: Neurology will continue to follow and provide updates as needed or warranted. Contact our office with any questions I have discussed the plan of care with the physician prior to implementation and he agrees with the plan as implemented. Current Visit: Yes Status: Acute Code(s): I63.81 - OTHER CEREB INFRC DUE TO OCCLS OR STENOSIS OF SMALL ARTERY SNOMED Code(s): 671719661 (2) Confusion Narrative/Plan: secondary to acute lacunar infarct at this time. Reassessment ongoing. Current Visit: Yes Status: Acute Code(s): R41.0 - DISORIENTATION, UNSPECIFIED SNOMED Code(s): 017509643 (3) Lower extremity weakness Narrative/Plan: secondary to lacunar infarct. Reassessment ongoing Current Visit: Yes Status: Acute Code(s): R29.898 - OTH SYMPTOMS AND SIGNS INVOLVING THE MUSCULOSKELETAL SYSTEM SNOMED Code(s): 230928514 (4) Tremor Narrative/Plan: secondary to lacunar infarct. Reassessment ongoing. Current Visit: Yes Status: Acute Code(s): R25.1 - TREMOR, UNSPECIFIED SNOMED Code(s): 16528299
[2018-11-09 05:42] LABS: Glucose,Whole Blood 151 mg/dL (75-99)
[2018-11-09] MEDS: PANTOPRAZOLE 40 MG TABLET PO SCH (06:37)
[2018-11-09] MEDS: LEVOTHYROXINE 88 MCG TAB PO SCH (06:37)
[2018-11-09] MEDS: SODIUM CHLORIDE 0.9% 1,000 ML IV SCH ×2 (06:37→14:52)
[2018-11-09 06:48] LABS: Basophils # (A) 0.1 k/uL (0-0.2); Basophils % (A) 1 %; Eosinophils # (A) 0.4 k/uL (0-0.7); Eosinophils % (A) 5 %; HCT 36.5 % (39.0-53.0); HGB 11.5 gm/dL (13.0-17.5); Hypochromasia Marked; Lymphocytes # (A) 1.4 k/uL (1.0-4.8); Lymphocytes % (A) 18 %; MCH 33.2 pg (25.0-35.0); MCHC 31.3 g/dL (31.0-37.0); Macrocytosis Moderate; Mean Platelet Volume 7.1; Monocytes % (A) 12 %; Neutrophils # (A) 4.8 k/uL (1.3-7.7); Neutrophils % (A) 62 %; Platelet Count 194 k/uL (150-450); RBC 3.45 m/uL (4.30-5.90); RDW 13.4 % (11.5-15.5); WBC 7.8 k/uL (3.8-10.6)
[2018-11-09] MEDS: INSULIN ASPART 100 UNIT/ML 1 ML 10 ML VIAL SQ SCH ×4 (06:49→20:27)
[2018-11-09 07:00] LABS: Albumin 2.8 g/dL (3.5-5.0); Calcium 7.9 mg/dL (8.4-10.2); Potassium 4.1 mmol/L (3.5-5.1); Total Bilirubin 0.3 mg/dL (0.2-1.3); Total Protein 5.3 g/dL (6.3-8.2)
--- NOTE | 2018-11-09 08:44 | P.PN ---
Subjective Progress Note Date: 11/09/18 Principal diagnosis: Lacunar infarct Neurology is following an 83-year-old male initially for tremor and currently for tremor and acute lacunar infarct. Patient was brought to the ED on after multiple falls have been occurring for the previous 2 days. Patient was having chest pain. He was following with cardiology with a known history of diabetes, GERD, hyperlipidemia, hypertension, history of SD, pneumonia, sleep apnea and thyroid disorder. She also has history of heart catheterization with stent. Last heart cath was in 2013. Chest x-ray noted right hemidiaphragm with basilar consolidation which may be related to atelectasis. CT brain showed degenerative and nonspecific white matter changes most typical with remote ischemia. EKG showed sinus bradycardia. Patient did have a fall on . Nephrology and cardiology are organic consult. Patient does have complaints of burning with urination. On 11/08/18 patient was observed to be confused the previous day by hospitalist and also exhibited tremor. Patient is known to be on multiple psychiatric medications including Klonopin. Patient had discontinued Klonopin at home and was on 3 mg per day prior for greater than 2 years. Yesterday on contact with the patient, the patient was observed to be alert and oriented 1, resting in bed. Nurses in the room at that time administering medications. He did not have any obvious tremor at that time did decline significantly during the physical assessment. Stat MRI of the brain was ordered and acute lacunar infarct was noted. Patient is noted to be Eliquis, aspirin and then was placed on Lipitor 40 mg by provider for prevention. Lipid panel, homocysteine level, EEG and carotid Doppler ordered. Interval update 11/09/18: On contact today, patient is alert and oriented 3, resting in bed in no acute distress. Nursing reports improvement throughout the night with the patient with regards to mentation. Patient's tremor is very mild in the bilateral upper extremities with rest. Patient's lipid panel notes total cholesterol 107, triglycerides 146, LDL 51, HDL 27. Serum homocystine level is still pending. EEG is still pending. Carotid Doppler still pending. Objective - Vital Signs Vital signs: Vital Signs Temp 97.9 F 11/09/18 04:00 Pulse 54 L 11/09/18 04:00 Resp 18 11/09/18 04:00 BP 173/71 11/09/18 04:00 Pulse Ox 95 11/09/18 04:00 Intake & Output 11/08/18 11/09/18 11/09/18 18:59 06:59 18:59 Intake Total 480 1060 Output Total 1200 Balance -720 1060 Intake: IV 960 Sodium Chloride 0.9% 1, 960 000 ml @ 120 mls/hr IV . Q8H20M [facility] Rx#:[id number] Oral 480 100 Output: Urine 1200 Uretheral (Lamas) 1200 Other: Voiding Method Indwelling Catheter Indwelling Catheter - Exam Gen. appearance: Alert, in no apparent distress Head: Atraumatic normocephalic, normal inspection Eyes: Well appearance, PERRL, EOMI. nystagmus still present but significantly decreased from yesterday Ear nose and throat: Normal exam, mucous membranes moist Neck: Normal inspection. Absent tenderness, lymphadenopathy Respiratory: No increased work of breathing. Cardiovascular: Regular rate, normal rhythm GIabdominal: No tenderness, no guarding Extremities: Moves all 4 extremities Neurological: Alert and oriented 3, cranial nerves II through XII intact, no unilateral lateralizing weaknessmild left lower extremity weakness, history of knee replacement with known residual weakness post knee arthroplasty, no seizure activity noted on physical exam, no pronator drift and mild nystagmus as noted above Slight resting tremor bilateral upper extremities Psychological: Mood and affect appropriate setting - Labs CBC & Chem 7: 11/09/18 05:53 11/09/18 05:53 Labs: Abnormal Lab Results - Last 24 Hours (Table) 11/08/18 11/08/18 11/08/18 Range/Units 08:13 11:37 11:47 RBC (4.30-5.90) m/uL Hgb (13.0-17.5) gm/dL Hct (39.0-53.0) % MCV (80.0-100.0) fL D-Dimer 0.71 H (<0.60) mg/L FEU Chloride (98-107) mmol/L Carbon Dioxide (22-30) mmol/L BUN (9-20) mg/dL Creatinine (0.66-1.25) mg/dL Glucose (74-99) mg/dL POC Glucose (mg/dL) 142 H 213 H (75-99) mg/dL Calcium (8.4-10.2) mg/dL Total Protein (6.3-8.2) g/dL Albumin (3.5-5.0) g/dL HDL Cholesterol (40-60) mg/dL 11/08/18 11/08/18 11/09/18 Range/Units 17:03 20:29 05:40 RBC (4.30-5.90) m/uL Hgb (13.0-17.5) gm/dL Hct (39.0-53.0) % MCV (80.0-100.0) fL D-Dimer (<0.60) mg/L FEU Chloride (98-107) mmol/L Carbon Dioxide (22-30) mmol/L BUN (9-20) mg/dL Creatinine (0.66-1.25) mg/dL Glucose (74-99) mg/dL POC Glucose (mg/dL) 178 H 173 H 151 H (75-99) mg/dL Calcium (8.4-10.2) mg/dL Total Protein (6.3-8.2) g/dL Albumin (3.5-5.0) g/dL HDL Cholesterol (40-60) mg/dL 11/09/18 11/09/18 Range/Units 05:53 05:53 RBC 3.45 L (4.30-5.90) m/uL Hgb 11.5 L (13.0-17.5) gm/dL Hct 36.5 L (39.0-53.0) % MCV 106.0 H D (80.0-100.0) fL D-Dimer (<0.60) mg/L FEU Chloride 117 H (98-107) mmol/L Carbon Dioxide 17 L (22-30) mmol/L BUN 33 H (9-20) mg/dL Creatinine 1.91 H (0.66-1.25) mg/dL Glucose 121 H (74-99) mg/dL POC Glucose (mg/dL) (75-99) mg/dL Calcium 7.9 L (8.4-10.2) mg/dL Total Protein 5.3 L (6.3-8.2) g/dL Albumin 2.8 L (3.5-5.0) g/dL HDL Cholesterol 27 L (40-60) mg/dL Microbiology - Last 24 Hours (Table) 11/07/18 15:30 Urine Culture - Preliminary Urine,Catheterized Group D Enterococcus Assessment and Plan (1) Lacunar infarct, acute Narrative/Plan: On physical exam, patient exhibited significantly decreased nystagmus to the right and to the left. Finger to nose testing, elicited no blurry vision compared to 11/08/18 physical exam findings. Patient is no longer confused with provider and nurse in the room. As previously stated MRI of the brain noted acute lacunar infarct. We will continue to monitor and reassess for the next 48-72 hours. patient's EEG is pending. Serum homocysteine level is pending. Patient is currently on anticoagulantEliquis at this time by cardiology. Eliquis to be maintained with 81 mg aspirin daily. Patient was on low-dose Lipitor which will be increased to 40 mg at this time for risk reduction. Recommend speech, PT, OT consult. Continued neuro checks consistent with acute stroke protocol. Current Visit: Yes Status: Acute Code(s): I63.81 - OTHER CEREB INFRC DUE TO OCCLS OR STENOSIS OF SMALL ARTERY SNOMED Code(s): 966860499 (2) Confusion Narrative/Plan: Resolved Current Visit: Yes Status: Acute Code(s): R41.0 - DISORIENTATION, UNSPECIFIED SNOMED Code(s): 771067610 (3) Lower extremity weakness Narrative/Plan: Left lower extremity appears at least in part due to residual weakness from left knee arthroplasty per patient which has caused left lower extremity weakness times several years. Patient has no lower back pain on physical exam. Based on imaging and findings of lacunar infarct some contributory etiology still cannot be ruled out. However, we will need to involve physical therapy and occupational therapy in an aggressive manner for rehabilitative purposes at this time with further recommendations to follow. Current Visit: Yes Status: Acute Code(s): R29.898 - OT SYMPTOMS AND SIGNS INVOLVING THE MUSCULOSKELETAL SYSTEM SNOMED Code(s): 942359370 (4) Tremor Narrative/Plan: Although the patient did have findings of acute lacunar infarct which would suggest tremor could be secondary or results of lacunar infarct and/or previous TIA activity, with the patient's rapid progression back to baseline, and still presence of tremor, it is now more likely that the tremor is more reflective of a mild Parkinson's. I will monitor for another 24 hours and if the tremor does not resolve with continued resolution of the patient's CVA symptoms, I'll begin medication therapy in 24 hours. Current Visit: Yes Status: Acute Code(s): R25.1 - TREMOR, UNSPECIFIED SNOMED Code(s): 00885525 Plan: STATUS: Neurology will continue to follow and provide updates as needed or warranted. Feel free to contact our office with any questions. I discussed the patients history, physical exam, diagnostic testing, lab work and imaging with Dr Coates prior to implementing the plan above. He agrees with the plan as implemented prior to implementation.
[2018-11-09] MEDS ORDERED: ASPIRIN 81 MG PO SCH (09:00)
--- NOTE | 2018-11-09 09:46 | NM ---
EXAMINATION TYPE: NM pul vent and perfuse DATE OF EXAM: 11/09/2018 COMPARISON: Radiograph 11/07/2018 HISTORY: 83-year-old male elevated d-dimer, shortness of breath TECHNIQUE: Utilizing inhalation of 41 mCi Tc 99m DTPA aerosol and intravenous injection of 4.87 mCi of Tc 99m MAA, ventilation and perfusion images are acquired post injection in multiple projections. FINDINGS: Elevated right hemidiaphragm reflected on both the ventilation and perfusion images. There is clumpin g of radiotracer in the central airways which can be seen with COPD. No mismatched perfusion defect i dentified. IMPRESSION: Very low probability for pulmonary embolus. Possible underlying COPD. Elevated right hemidiaphragm is nonspecific but can be seen with hemidiaphragmatic paralysis.
[2018-11-09] MEDS ORDERED: amLODIPine 5 MG TAB PO SCH (10:00)
--- NOTE | 2018-11-09 10:38 | PN ---
PROGRESS NOTE Patient is seen for followup for acute kidney injury, which was secondary to obstructive uropathy, urine retention and some degree of volume depletion. Currently, patient is maintained on IV fluids. His creatinine has improved. It is down to 1.9 today. Previous creatinine was as low as 1.25 in 2017. The patient has had good urine output. He had also been confused and had jerking movements some yesterday, which seems to have improved today. PHYSICAL EXAMINATION: Blood pressure this morning was elevated 187/88, heart rate 89 per minute. He is afebrile. Examination of the heart S1, S2. Examination of the lungs bilateral breath sounds are heard. Abdomen is soft, nontender. Examination of lower extremities shows no evidence of edema. [employer] exam is grossly intact. LAB: Show sodium of 142, potassium 4.1, chloride 117, CO2 17, BUN 33, serum creatinine 1.9, hemoglobin 11.5 g/dL. ASSESSMENT: 1. Acute kidney injury secondary to urine retention and volume depletion, maintained on saline. I will change IV fluids to half-normal saline given his hypertension. We will continue with the fluids and encourage increased oral intake. Continue Flomax. Continue with Lamas catheter as well. 2. Hypertension. Increase Tenormin to 50 mg daily. 3. Metabolic acidosis secondary to renal failure. Expect improvement with changing the IV fluids. 4. Confusion seems to have improved. 5. Cerebrovascular accident with CT scan showing evidence of lacunar infarct. The patient had a brain MRI done as well yesterday showing an acute lacunar infarct in the right posterior parietal lobe white matter. The patient is being followed by Neurology. PLAN: Change IV fluids to Ringer lactate. Add Norvasc. I will hold off on increasing Tenormin as his heart rate has occasionally dipped into the 51 and 54 beats per minute range. Repeat labs in a.m. MMODL / IJN: [id number] /
--- NOTE | 2018-11-09 11:25 | P.PN ---
Subjective Progress Note Date: 11/09/18 This is a 83-year-old male patient of Dr. Joseph. Patient presented to the emergency room complaining of multiple falls that has been occurring over the past 2 days. She denies tripping. Per patient fell out of bed. Patient also states he is having chest pain. Patient does follow with cardiology services. Patient does appear to be a poor historian. Family is at bedside. She doesn't past medical history of diabetes mellitus, GERD, hyperlipidemia, hypertension, myocardial infarction, pneumonia, sleep apnea and thyroid answer. patient also states he has history of heart cath with stents. Last heart cath was in 2013. Chest x-ray completed showing elevated right pepito-diaphragm neck with right basilar consolidation which may be related to atelectasis rather than pneumonia correlate clinically for confirmation. Cardiomegaly. CT of head completed showing degenerative and nonspecific white matter changes most typical remote ischemia. EKG completed showing sinus bradycardia with heart rate 58. Creatinine 2.45 and bun 41 potassium also elevated at 5.2. Patient also states he fell on Thanksgiving his back at this time. Patient denies any back x-rays being completed. Dr. Sauer will be consulted for nephrology services. Dr. Sparks has been consulted for cardiology services. Patient does complain of some burning with urination. Urinary analysis has been ordered. Denies cough or shortness breath. Denies nausea vomiting or diarrhea. On 11/08/2018 patient is currently resting in bed. Patient does appear more confused than yesterday. Patient also went into atrial fibrillation last night. Cardiology services are following and recommending eliquis for anticoagulation. Patient also continued to have tremor. Patient is on multiple psych medications. Recommending neurology consult for further evaluation. Patient also to be transferred to cardiac stepdown unit for closer monitoring. On 11/08/2018 patient is alert and responsive in no apparent distress he just received an EEG per neurology orders, MRI last night revealed evidence of lacunar infarct, overall condition is improving, there is no fever or chills no headache or dizziness no chest pain no shortness of breath at this time no cough no nausea or vomiting no abdominal pain and no urinary symptoms Objective - Vital Signs Vital signs: Vital Signs Temp 97.7 F 11/09/18 08:00 Pulse 89 11/09/18 08:00 Resp 18 11/09/18 08:00 BP 187/88 11/09/18 08:00 Pulse Ox 92 L 11/09/18 08:00 Intake & Output 11/08/18 11/09/18 11/09/18 18:59 06:59 18:59 Intake Total 480 1060 Output Total 1200 Balance -720 1060 Intake: IV 960 Sodium Chloride 0.9% 1, 960 000 ml @ 120 mls/hr IV . Q8H20M [facility] Rx#:[id number] Oral 480 100 Output: Urine 1200 Uretheral (Lamas) 1200 Other: Voiding Method Indwelling Catheter Indwelling Catheter Indwelling Catheter - Exam Head normocephalic and atraumatic Neck supple no JVD no goiter Lungs clear to auscultation bilaterally no wheezing or crackles Heart regular rate and rhythm S1-S2, no rub or gallop Abdomen is soft nontender nondistended positive bowel sounds no hepatosplenomegaly Extremities no edema no cyanosis or clubbing Neuro alert and orientated to 1. Patient has equal strength to bilateral upper and lower extremities. Patient is able to follow commands. No facial symptoms asymmetry noted. Speech is clear. Patient does have a notable tremor. - Labs CBC & Chem 7: 11/09/18 05:53 11/09/18 05:53 Labs: Abnormal Lab Results - Last 24 Hours (Table) 11/08/18 11/08/18 11/08/18 Range/Units 11:37 11:47 17:03 RBC (4.30-5.90) m/uL Hgb (13.0-17.5) gm/dL Hct (39.0-53.0) % MCV (80.0-100.0) fL D-Dimer 0.71 H (<0.60) mg/L FEU Chloride (98-107) mmol/L Carbon Dioxide (22-30) mmol/L BUN (9-20) mg/dL Creatinine (0.66-1.25) mg/dL Glucose (74-99) mg/dL POC Glucose (mg/dL) 213 H 178 H (75-99) mg/dL Calcium (8.4-10.2) mg/dL Total Protein (6.3-8.2) g/dL Albumin (3.5-5.0) g/dL HDL Cholesterol (40-60) mg/dL 11/08/18 11/09/18 11/09/18 Range/Units 20:29 05:40 05:53 RBC (4.30-5.90) m/uL Hgb (13.0-17.5) gm/dL Hct (39.0-53.0) % MCV (80.0-100.0) fL D-Dimer (<0.60) mg/L FEU Chloride 117 H (98-107) mmol/L Carbon Dioxide 17 L (22-30) mmol/L BUN 33 H (9-20) mg/dL Creatinine 1.91 H (0.66-1.25) mg/dL Glucose 121 H (74-99) mg/dL POC Glucose (mg/dL) 173 H 151 H (75-99) mg/dL Calcium 7.9 L (8.4-10.2) mg/dL Total Protein 5.3 L (6.3-8.2) g/dL Albumin 2.8 L (3.5-5.0) g/dL HDL Cholesterol 27 L (40-60) mg/dL 11/09/18 Range/Units 05:53 RBC 3.45 L (4.30-5.90) m/uL Hgb 11.5 L (13.0-17.5) gm/dL Hct 36.5 L (39.0-53.0) % MCV 106.0 H D (80.0-100.0) fL D-Dimer (<0.60) mg/L FEU Chloride (98-107) mmol/L Carbon Dioxide (22-30) mmol/L BUN (9-20) mg/dL Creatinine (0.66-1.25) mg/dL Glucose (74-99) mg/dL POC Glucose (mg/dL) (75-99) mg/dL Calcium (8.4-10.2) mg/dL Total Protein (6.3-8.2) g/dL Albumin (3.5-5.0) g/dL HDL Cholesterol (40-60) mg/dL Microbiology - Last 24 Hours (Table) 11/07/18 15:30 Urine Culture - Preliminary Urine,Catheterized Group D Enterococcus Assessment and Plan Plan: 1. Increased weakness with falls. Head CT completed showing degenerative and nonspecific white matter change most typical of remote ischemia. MRI was suggestive of acute lacunar infarct neurology are following EEG was done today 2. Syncopal episode. Cardiology services have been consulted. EKG showing sinus bradycardia. 2-D echo and carotid ultrasound has been ordered. Carotid ultrasound completed showing close to 50% stenosis in both internal carotid arteries more than 50% stenosis in the right external carotid artery. D-dimer has been ordered 3. Chest pain. Initial troponin negative. Cardiac enzymes ordered. Cardiac telemetry ordered. Cardiology services consulted 4. Acute on chronic kidney disease. Acute component is related to prerenal azotemia and urinary retention patient is maintained on IV fluid and Flomax Creatinine improved today down to 1.91 5. Hyperkalemia. Resolved potassium 4.1 today 6. Back pain. Patient states he fell a few weeks ago and hurt his back. X- ray thoracic spine completed showing some demineralization with no evidence of acute fracture or dislocation 7. Diabetes mellitus. Home medications held at this time will order sliding scale coverage 8. History of cardiac stent. 9. History of thyroid cancer. 10. Hypothyroidism patient maintained on Synthroid 11. Essential hypertension 12. History of GERD 13. History of anxiety and depression. Home meds resumed 14. Atrial fibrillation 15. Increased confusion. Neurology services consulted 16. Right basal consolidation seen on chest x-ray. Pulmonary services have been consulted 17. Tremor. Neurology services consulted DVT prophylaxis heparin. GI prophylaxis pepcid Case management and social work service is consulted for possible ECF placement Patient to be transferred to cardiac stepdown unit for closer monitoring D-dimer has been ordered Neurology and pulmonary consult placed
[2018-11-09] MEDS: APIXABAN 2.5 MG TABLET PO SCH ×2 (11:30→20:32)
[2018-11-09] MEDS: TAMSULOSIN 0.4 MG CAP.ER.24H PO SCH ×2 (11:30→20:32)
[2018-11-09] MEDS: FAMOTIDINE 20 MG TAB PO SCH (11:30)
[2018-11-09] MEDS: buPROPion 75 MG TAB PO SCH ×2 (11:30→20:33)
[2018-11-09] MEDS: ATENOLOL 25 MG TAB PO SCH (11:30)
[2018-11-09] MEDS: VIT A,C & E-LUTEIN-MINERALS 1 EACH TAB PO SCH ×2 (11:30→20:33)
[2018-11-09] MEDS: ASPIRIN 81 MG PO SCH (11:30)
[2018-11-09] MEDS: cycloSPORINE 0.05% OPHTH 0.4 ML DROPERETTE BOTH EYES SCH ×2 (11:31→20:37)
[2018-11-09] MEDS: CYANOCOBALAMIN 500 MCG TAB PO SCH (11:31)
[2018-11-09] MEDS: CITALOPRAM HYDROBROMIDE 20 MG TAB PO SCH ×2 (11:31→16:59)
[2018-11-09] MEDS: LORATADINE 10 MG TAB PO SCH (11:31)
[2018-11-09] MEDS: LACTATED RINGERS 1,000 ML IV SCH ×2 (11:33→20:33)
[2018-11-09 12:00] LABS: Glucose,Whole Blood 158 mg/dL (75-99)
--- NOTE | 2018-11-09 14:27 | P.PN ---
Subjective Progress Note Date: 11/09/18 This is a pleasant 83-year-old male with past medical history significant for coronary artery disease, myocardial infarction status post angioplasty, hypertension, dyslipidemia, diabetes mellitus, ischemic cardiomyopathy. Admitted to the hospital with altered mental status at home for the previous 2 days. He is a very poor historian. Information is obtained from the medical record. Apparently he was complaining of chest discomfort at some point at home as well. He was found to have acute kidney injury with hyperkalemia. Per the nursing staff he was hallucinating pulling out his IV last night. Telemetry tracings and EKG reviewed and indicate he is having episodes of paroxysmal atrial fibrillation. There is no documented history of a- fib in the hospital or in the office. Currently maintained on aspirin 325 mg daily, atenolol 25 mg daily, losartain 100 mg daily and simvastatin 40 mg daily. 11/09/2018 Patient admitted to the hospital primarily with a listener infarct. He was seen and examined today, alert and oriented 3 and in no acute distress. Blood pressure elevated at 188/80, we will increase his dose of Norvasc to 10 mg today. Continue the rest of his medications. Carotid Doppler study remains pending. Objective - Vital Signs Vital signs: Vital Signs Temp 95.9 F L 11/09/18 12:00 Pulse 89 11/09/18 12:00 Resp 18 11/09/18 12:00 BP 197/88 11/09/18 12:00 Pulse Ox 95 11/09/18 12:00 Intake & Output 11/08/18 11/09/18 11/09/18 18:59 06:59 18:59 Intake Total 480 1060 Output Total 1200 Balance -720 1060 Intake: IV 960 Sodium Chloride 0.9% 1, 960 000 ml @ 120 mls/hr IV . Q8H20M [facility] Rx#:[id number] Oral 480 100 Output: Urine 1200 Uretheral (Lamas) 1200 Other: Voiding Method Indwelling Catheter Indwelling Catheter Indwelling Catheter - Exam Blood pressure 167/74 heart rate 63 afebrile maintaining oxygen saturation on room air GENERAL: This is a 83-year-old male in no apparent distress at the time of my examination. HEENT: Head is atraumatic, normocephalic. Pupils are equal, round. Sclerae anicteric. Conjunctivae are clear. Mucous membranes of the mouth are moist. Neck is supple. There is no jugular venous distention. No carotid bruit is heard. LUNGS: Clear to auscultation no wheezes, rales or rhonchi. No chest wall tenderness is noted on palpation or with deep breathing. HEART: Irregular rate and rhythm without murmurs, rubs or gallops. S1 and S2 heard. ABDOMEN: Soft, nontender. Bowel sounds are heard. No organomegaly noted. EXTREMITIES: No evidence of peripheral edema and no calf tenderness noted. VASCULAR: Radial and dorsalis pedis pulses palpated, no evidence of clubbing. NEUROLOGIC: Patient is awake, alert and oriented - Labs CBC & Chem 7: 11/09/18 05:53 11/09/18 05:53 Labs: Abnormal Lab Results - Last 24 Hours (Table) 11/08/18 11/08/18 11/09/18 Range/Units 17:03 20:29 05:40 RBC (4.30-5.90) m/uL Hgb (13.0-17.5) gm/dL Hct (39.0-53.0) % MCV (80.0-100.0) fL Chloride (98-107) mmol/L Carbon Dioxide (22-30) mmol/L BUN (9-20) mg/dL Creatinine (0.66-1.25) mg/dL Glucose (74-99) mg/dL POC Glucose (mg/dL) 178 H 173 H 151 H (75-99) mg/dL Calcium (8.4-10.2) mg/dL Total Protein (6.3-8.2) g/dL Albumin (3.5-5.0) g/dL HDL Cholesterol (40-60) mg/dL 11/09/18 11/09/18 11/09/18 Range/Units 05:53 05:53 11:56 RBC 3.45 L (4.30-5.90) m/uL Hgb 11.5 L (13.0-17.5) gm/dL Hct 36.5 L (39.0-53.0) % MCV 106.0 H D (80.0-100.0) fL Chloride 117 H (98-107) mmol/L Carbon Dioxide 17 L (22-30) mmol/L BUN 33 H (9-20) mg/dL Creatinine 1.91 H (0.66-1.25) mg/dL Glucose 121 H (74-99) mg/dL POC Glucose (mg/dL) 158 H (75-99) mg/dL Calcium 7.9 L (8.4-10.2) mg/dL Total Protein 5.3 L (6.3-8.2) g/dL Albumin 2.8 L (3.5-5.0) g/dL HDL Cholesterol 27 L (40-60) mg/dL Microbiology - Last 24 Hours (Table) 11/07/18 15:30 Urine Culture - Preliminary Urine,Catheterized Group D Enterococcus Assessment and Plan Plan: Assessment and plan #1 Paroxysmal atrial fibrillation with mildly rapid ventricular response #2 Altered mental status with evidence of acute lacunar infarct #3 Acute kidney injury #4 Hyperkalemia #5 History of coronary artery disease #6 Ischemic cardiomyopathy s/p acute myocardial infarction #7 Hypertension #8 Dyslipidemia #9Diabetes mellitus Plan Cardiology's perspective, we'll increase dose of Norvasc to 10 mg daily, continue the rest of the patient's medications. Echo revealed normal left ventricular systolic function. DNP note has been reviewed, I agree with a documented findings and plan of care. Patient was seen and examined.
[2018-11-09 17:48] LABS: Glucose,Whole Blood 347 mg/dL (75-99)
[2018-11-09 20:26] LABS: Glucose,Whole Blood 99 mg/dL (75-99)
[2018-11-09] MEDS: ATORVASTATIN 40 MG TAB PO SCH (20:32)
[2018-11-09] MEDS: risperiDONE 0.5 MG TAB PO SCH (20:33)
[2018-11-09] MEDS: TEMAZEPAM 15 MG CAP PO SCH (20:37)
[2018-11-10 05:37] LABS: Glucose,Whole Blood 136 mg/dL (75-99)
[2018-11-10 06:19] LABS: Basophils % (A) 0 %; Eosinophils # (A) 0.5 k/uL (0-0.7); Eosinophils % (A) 6 %; HCT 35.8 % (39.0-53.0); HGB 11.3 gm/dL (13.0-17.5); Lymphocytes # (A) 1.4 k/uL (1.0-4.8); Lymphocytes % (A) 18 %; MCH 31.3 pg (25.0-35.0); MCHC 31.5 g/dL (31.0-37.0); Mean Platelet Volume 6.8; Monocytes # (A) 0.5 k/uL (0-1.0); Monocytes % (A) 6 %; Neutrophils # (A) 5.4 k/uL (1.3-7.7); Neutrophils % (A) 67 %; Platelet Count 205 k/uL (150-450); RDW 13.7 % (11.5-15.5)
[2018-11-10 06:23] LABS: Albumin 2.7 g/dL (3.5-5.0); Calcium 8.1 mg/dL (8.4-10.2); Potassium 3.8 mmol/L (3.5-5.1); Total Bilirubin 0.3 mg/dL (0.2-1.3); Total Protein 5.1 g/dL (6.3-8.2)
[2018-11-10 06:24] LABS: MCV 99.4 fL (80.0-100.0)
[2018-11-10] MEDS: INSULIN ASPART 100 UNIT/ML 1 ML 10 ML VIAL SQ SCH ×4 (06:31→21:45)
[2018-11-10] MEDS: PANTOPRAZOLE 40 MG TABLET PO SCH (06:31)
[2018-11-10] MEDS: LEVOTHYROXINE 88 MCG TAB PO SCH (06:31)
[2018-11-10] MEDS: ATENOLOL 25 MG TAB PO SCH ×2 (08:22→20:12)
[2018-11-10] MEDS: CYANOCOBALAMIN 500 MCG TAB PO SCH (08:23)
[2018-11-10] MEDS: LORATADINE 10 MG TAB PO SCH (08:23)
[2018-11-10] MEDS: ASPIRIN 81 MG PO SCH (08:23)
[2018-11-10] MEDS: CITALOPRAM HYDROBROMIDE 20 MG TAB PO SCH ×2 (08:23→17:15)
[2018-11-10] MEDS: amLODIPine 10 MG TAB PO SCH (08:23)
[2018-11-10] MEDS: TAMSULOSIN 0.4 MG CAP.ER.24H PO SCH ×2 (08:23→20:13)
[2018-11-10] MEDS: APIXABAN 2.5 MG TABLET PO SCH ×2 (08:23→20:11)
[2018-11-10] MEDS: VIT A,C & E-LUTEIN-MINERALS 1 EACH TAB PO SCH ×2 (08:39→20:13)
[2018-11-10] MEDS: cycloSPORINE 0.05% OPHTH 0.4 ML DROPERETTE BOTH EYES SCH ×2 (08:40→20:12)
[2018-11-10] MEDS: buPROPion 75 MG TAB PO SCH ×2 (08:40→20:12)
[2018-11-10] MEDS ORDERED: DEXTROSE 5% IN WATER 100 ML with AMIODARONE 150 MG IV ONE (10:39)
--- NOTE | 2018-11-10 11:27 | EEG ---
ELECTROENCEPHALOGRAM REPORT DATE OF SERVICE: 11/09/2018. REASON FOR TESTING: Altered mental status. DESCRIPTION OF THE PROCEDURE: This EEG was performed using a 21 channel digital electroencephalograph, following international 10-20 system. DESCRIPTION OF THE RECORDING: From the beginning of the tracing, with patient's eyes closed, the background rhythm was mostly consisting of 7 Hz theta frequency in the posterior occipital leads. No obvious asymmetry is seen. Occasional movement and muscle artifacts are seen. Photic stimulation was performed with a minimal driving response seen. No pathological waves were elicited. Hyperventilation was not performed. The patient does reach stage II of sleep during the tracing and occasional sleep spindles are seen. No epileptiform discharges were seen. INTERPRETATION: This asleep and awake EEG is abnormal due to the presence of generalized slowing of the background rhythm, mostly in the theta range. This is consistent with mild encephalopathy. No epileptiform discharges were seen. The absence of epileptiform discharges does not rule out the diagnosis of epilepsy; therefore clinical correlation is recommended. MMJESSE / SNEHAN: [id number] /
--- NOTE | 2018-11-10 12:06 | P.PN ---
Subjective Progress Note Date: 11/10/18 This is a 83-year-old male patient of Dr. Joseph. Patient presented to the emergency room complaining of multiple falls that has been occurring over the past 2 days. She denies tripping. Per patient fell out of bed. Patient also states he is having chest pain. Patient does follow with cardiology services. Patient does appear to be a poor historian. Family is at bedside. She doesn't past medical history of diabetes mellitus, GERD, hyperlipidemia, hypertension, myocardial infarction, pneumonia, sleep apnea and thyroid answer. patient also states he has history of heart cath with stents. Last heart cath was in 2013. Chest x-ray completed showing elevated right pepito-diaphragm neck with right basilar consolidation which may be related to atelectasis rather than pneumonia correlate clinically for confirmation. Cardiomegaly. CT of head completed showing degenerative and nonspecific white matter changes most typical remote ischemia. EKG completed showing sinus bradycardia with heart rate 58. Creatinine 2.45 and bun 41 potassium also elevated at 5.2. Patient also states he fell on Thanksgiving his back at this time. Patient denies any back x-rays being completed. Dr. Sauer will be consulted for nephrology services. Dr. Sparks has been consulted for cardiology services. Patient does complain of some burning with urination. Urinary analysis has been ordered. Denies cough or shortness breath. Denies nausea vomiting or diarrhea. On 11/08/2018 patient is currently resting in bed. Patient does appear more confused than yesterday. Patient also went into atrial fibrillation last night. Cardiology services are following and recommending eliquis for anticoagulation. Patient also continued to have tremor. Patient is on multiple psych medications. Recommending neurology consult for further evaluation. Patient also to be transferred to cardiac stepdown unit for closer monitoring. On 11/09/2018 patient is alert and responsive in no apparent distress he just received an EEG per neurology orders, MRI last night revealed evidence of lacunar infarct, overall condition is improving, there is no fever or chills no headache or dizziness no chest pain no shortness of breath at this time no cough no nausea or vomiting no abdominal pain and no urinary symptoms. On 11/10/2018 patient is alert and oriented 3 in no apparent distress he denies any pain he is complaining of generalized weakness otherwise he denies any complaints at this time Objective - Vital Signs Vital signs: Vital Signs Temp 97.7 F 11/10/18 04:00 Pulse 53 L 11/10/18 04:00 Resp 18 11/10/18 04:00 BP 150/80 11/10/18 04:00 Pulse Ox 93 L 11/10/18 04:00 Intake & Output 11/09/18 11/10/18 11/10/18 18:59 06:59 18:59 Intake Total 1925 420 Output Total 1200 1300 Balance 725 -880 Intake: IV 480 Sodium Chloride 0.9% 1, 480 000 ml @ 120 mls/hr IV . Q8H20M [facility] Rx#:[id number] Intake, IV Titration 325 300 Amount Lactated Ringers 1,000 ml 225 300 @ 75 mls/hr IV .[id number] [facility] Rx#:[id number] cefTRIAXone 1,000 mg In 100 Sodium Chloride 0.9% 50 ml @ 100 mls/hr IVPB Q24HR [facility] Rx#:[id number] Oral 1120 120 Output: Urine 1200 1300 Uretheral (Lamas) 400 Other: Voiding Method Indwelling Catheter Indwelling Catheter - Exam Head normocephalic and atraumatic Neck supple no JVD no goiter Lungs clear to auscultation bilaterally no wheezing or crackles Heart regular rate and rhythm S1-S2, no rub or gallop Abdomen is soft nontender nondistended positive bowel sounds no hepatosplenomegaly Extremities no edema no cyanosis or clubbing Neuro alert and orientated to 1. Patient has equal strength to bilateral upper and lower extremities. Patient is able to follow commands. No facial symptoms asymmetry noted. Speech is clear. Patient does have a notable tremor. - Labs CBC & Chem 7: 11/10/18 05:52 11/10/18 05:52 Labs: Abnormal Lab Results - Last 24 Hours (Table) 11/09/18 11/10/18 11/10/18 Range/Units 16:50 05:35 05:52 RBC 3.60 L (4.30-5.90) m/uL Hgb 11.3 L (13.0-17.5) gm/dL Hct 35.8 L (39.0-53.0) % Chloride (98-107) mmol/L Carbon Dioxide (22-30) mmol/L BUN (9-20) mg/dL Creatinine (0.66-1.25) mg/dL Glucose (74-99) mg/dL POC Glucose (mg/dL) 347 H 136 H (75-99) mg/dL Calcium (8.4-10.2) mg/dL Total Protein (6.3-8.2) g/dL Albumin (3.5-5.0) g/dL 11/10/18 Range/Units 05:52 RBC (4.30-5.90) m/uL Hgb (13.0-17.5) gm/dL Hct (39.0-53.0) % Chloride 115 H (98-107) mmol/L Carbon Dioxide 21 L (22-30) mmol/L BUN 26 H (9-20) mg/dL Creatinine 1.67 H (0.66-1.25) mg/dL Glucose 146 H (74-99) mg/dL POC Glucose (mg/dL) (75-99) mg/dL Calcium 8.1 L (8.4-10.2) mg/dL Total Protein 5.1 L (6.3-8.2) g/dL Albumin 2.7 L (3.5-5.0) g/dL Microbiology - Last 24 Hours (Table) 11/07/18 15:30 Urine Culture - Final Urine,Catheterized Enterococcus faecalis Assessment and Plan Plan: 1. Increased weakness with falls. Head CT completed showing degenerative and nonspecific white matter change most typical of remote ischemia. MRI was suggestive of acute lacunar infarct neurology are following EEG was done today 2. Syncopal episode. Cardiology services have been consulted. EKG showing sinus bradycardia. 2-D echo and carotid ultrasound has been ordered. Carotid ultrasound completed showing close to 50% stenosis in both internal carotid arteries more than 50% stenosis in the right external carotid artery. D-dimer has been ordered. During this hospitalization patient had atrial fibrillation with rapid ventricular response, he was seen by cardiology currently heart rate is well-controlled. He was started on Eliquis for stroke prevention 3. Chest pain. Initial troponin negative. Cardiac enzymes ordered. Cardiac telemetry ordered. Cardiology services consulted 4. Acute on chronic kidney disease. Acute component is related to prerenal azotemia and urinary retention patient is maintained on IV fluid and Flomax Creatinine improved today down to 1.91 5. Hyperkalemia. Resolved potassium 4.1 today 6. Back pain. Patient states he fell a few weeks ago and hurt his back. X- ray thoracic spine completed showing some demineralization with no evidence of acute fracture or dislocation 7. Diabetes mellitus. Home medications held at this time will order sliding scale coverage 8. History of cardiac stent. 9. History of thyroid cancer. 10. Hypothyroidism patient maintained on Synthroid 11. Essential hypertension 12. History of GERD 13. History of anxiety and depression. Home meds resumed 14. Evidence of acute lacunar infarct in the right posterior parietal lobe 15. Increased confusion. Neurology services consulted 16. Right basal consolidation seen on chest x-ray. Pulmonary services have been consulted 17. Tremor. Neurology services consulted DVT prophylaxis heparin. GI prophylaxis pepcid Case management and social work service is consulted for possible ECF placement Patient to be transferred to cardiac stepdown unit for closer monitoring D-dimer has been ordered Neurology and pulmonary consult placed
[2018-11-10 12:18] LABS: Glucose,Whole Blood 271 mg/dL (75-99)
[2018-11-10] MEDS: AMIODARONE 450 MG in DEXTROSE 5% IN WATER 250 ML IV SCH ×4 (12:45→19:19)
[2018-11-10] MEDS: LACTATED RINGERS 1,000 ML IV SCH (12:47)
[2018-11-10] MEDS: hydrALAZINE HCL 25 MG TAB PO SCH ×2 (12:48→20:12)
--- NOTE | 2018-11-10 14:03 | P.PN ---
Subjective Progress Note Date: 11/10/18 This is a pleasant 83-year-old male with past medical history significant for coronary artery disease, myocardial infarction status post angioplasty, hypertension, dyslipidemia, diabetes mellitus, ischemic cardiomyopathy. Admitted to the hospital with altered mental status at home for the previous 2 days. He is a very poor historian. Information is obtained from the medical record. Apparently he was complaining of chest discomfort at some point at home as well. He was found to have acute kidney injury with hyperkalemia. Per the nursing staff he was hallucinating pulling out his IV last night. Telemetry tracings and EKG reviewed and indicate he is having episodes of paroxysmal atrial fibrillation. There is no documented history of a- fib in the hospital or in the office. Currently maintained on aspirin 325 mg daily, atenolol 25 mg daily, losartain 100 mg daily and simvastatin 40 mg daily. 11/09/2018 Patient admitted to the hospital primarily with acute lacunar infarct. He was seen and examined today, alert and oriented 3 and in no acute distress. Blood pressure elevated at 188/80, we will increase his dose of Norvasc to 10 mg today. Continue the rest of his medications. Carotid Doppler study remains pending. 11/10/2018 patient is in A. fib with RVR and started on Amiodarone drip. His blood pressure continues to be high despite changes made yesterday. Atenolol will be increased frequency to twice daily at 25 mg and hydralazine added 25 mg twice daily. The patient denies having any chest pain or shortness of breath. He is denying any palpitations. carotid Doppler revealed 50% stenosis in both internal carotid arteries monitored 50% stenosis in the right external carotid artery. Objective - Vital Signs Vital signs: Vital Signs Temp 97.9 F 11/10/18 12:00 Pulse 122 H 11/10/18 12:00 Resp 18 11/10/18 12:00 BP 157/86 11/10/18 12:00 Pulse Ox 95 11/10/18 12:00 Intake & Output 11/09/18 11/10/18 11/10/18 18:59 06:59 18:59 Intake Total 1925 420 Output Total 1200 1300 Balance 725 -880 Intake: IV 480 Sodium Chloride 0.9% 1, 480 000 ml @ 120 mls/hr IV . Q8H20M [facility] Rx#:[id number] Intake, IV Titration 325 300 Amount Lactated Ringers 1,000 ml 225 300 @ 75 mls/hr IV .[id number] [facility] Rx#:[id number] cefTRIAXone 1,000 mg In 100 Sodium Chloride 0.9% 50 ml @ 100 mls/hr IVPB Q24HR [facility] Rx#:[id number] Oral 1120 120 Output: Urine 1200 1300 Uretheral (Lamas) 400 Other: Voiding Method Indwelling Catheter Indwelling Catheter Indwelling Catheter - Exam Blood pressure 157/86 heart rate 122 afebrile maintaining oxygen saturation on room air GENERAL: This is a 83-year-old male in no apparent distress at the time of my examination. HEENT: Head is atraumatic, normocephalic. Pupils are equal, round. Sclerae anicteric. Conjunctivae are clear. Mucous membranes of the mouth are moist. Neck is supple. There is no jugular venous distention. No carotid bruit is heard. LUNGS: Clear to auscultation no wheezes, rales or rhonchi. No chest wall tenderness is noted on palpation or with deep breathing. HEART: Irregular rate and rhythm without murmurs, rubs or gallops. S1 and S2 heard. ABDOMEN: Soft, nontender. Bowel sounds are heard. No organomegaly noted. EXTREMITIES: No evidence of peripheral edema and no calf tenderness noted. VASCULAR: Radial and dorsalis pedis pulses palpated, no evidence of clubbing. NEUROLOGIC: Patient is awake, alert and oriented - Labs CBC & Chem 7: 11/10/18 05:52 11/10/18 05:52 Labs: Abnormal Lab Results - Last 24 Hours (Table) 11/09/18 11/10/18 11/10/18 Range/Units 16:50 05:35 05:52 RBC 3.60 L (4.30-5.90) m/uL Hgb 11.3 L (13.0-17.5) gm/dL Hct 35.8 L (39.0-53.0) % Chloride (98-107) mmol/L Carbon Dioxide (22-30) mmol/L BUN (9-20) mg/dL Creatinine (0.66-1.25) mg/dL Glucose (74-99) mg/dL POC Glucose (mg/dL) 347 H 136 H (75-99) mg/dL Calcium (8.4-10.2) mg/dL Total Protein (6.3-8.2) g/dL Albumin (3.5-5.0) g/dL 11/10/18 11/10/18 Range/Units 05:52 12:00 RBC (4.30-5.90) m/uL Hgb (13.0-17.5) gm/dL Hct (39.0-53.0) % Chloride 115 H (98-107) mmol/L Carbon Dioxide 21 L (22-30) mmol/L BUN 26 H (9-20) mg/dL Creatinine 1.67 H (0.66-1.25) mg/dL Glucose 146 H (74-99) mg/dL POC Glucose (mg/dL) 271 H (75-99) mg/dL Calcium 8.1 L (8.4-10.2) mg/dL Total Protein 5.1 L (6.3-8.2) g/dL Albumin 2.7 L (3.5-5.0) g/dL Microbiology - Last 24 Hours (Table) 11/07/18 15:30 Urine Culture - Final Urine,Catheterized Enterococcus faecalis Assessment and Plan Plan: Assessment and plan #1 Paroxysmal atrial fibrillation with RVR #2 Altered mental status with evidence of acute lacunar infarct #3 Acute kidney injury #4 Hyperkalemia #5 History of coronary artery disease #6 Ischemic cardiomyopathy s/p acute myocardial infarction #7 Hypertension #8 Dyslipidemia #9 Diabetes mellitus Plan Amiodarone drip was started Add hydralazine 25 mg twice daily Increase frequency of atenolol to 25 mg twice daily Continueeliquis 2.5 mg twice daily, aspirin 81 mg daily, atenolol 25 mg twice daily, Lipitor 40 mg at bedtime, hydralazine 25 mg twice daily Echo revealed normal left ventricular systolic function. Nurse Practitioner note has been reviewed, I agree with a documented findings and plan of care. Patient was seen and examined.
[2018-11-10 16:39] LABS: Glucose,Whole Blood 278 mg/dL (75-99)
--- NOTE | 2018-11-10 16:57 | P.PN ---
Subjective Progress Note Date: 11/10/18 Principal diagnosis: Lacunar infarct Neurology is following an 83-year-old male initially for tremor and currently for tremor and acute lacunar infarct. Patient was brought to the ED on after multiple falls have been occurring for the previous 2 days. Patient was having chest pain. He was following with cardiology with a known history of diabetes, GERD, hyperlipidemia, hypertension, history of [place], pneumonia, sleep apnea and thyroid disorder. She also has history of heart catheterization with stent. Last heart cath was in 2013. Chest x-ray noted right hemidiaphragm with basilar consolidation which may be related to atelectasis. CT brain showed degenerative and nonspecific white matter changes most typical with remote ischemia. EKG showed sinus bradycardia. Patient did have a fall on . Nephrology and cardiology are organic consult. Patient does have complaints of burning with urination. On 11/08/18 patient was observed to be confused the previous day by hospitalist and also exhibited tremor. Patient is known to be on multiple psychiatric medications including Klonopin. Patient had discontinued Klonopin at home and was on 3 mg per day prior for greater than 2 years. Yesterday on contact with the patient, the patient was observed to be alert and oriented 1, resting in bed. Nurses in the room at that time administering medications. He did not have any obvious tremor at that time did decline significantly during the physical assessment. Stat MRI of the brain was ordered and acute lacunar infarct was noted. Patient is noted to be Eliquis, aspirin and then was placed on Lipitor 40 mg by provider for prevention. Lipid panel, homocysteine level, EEG and carotid Doppler ordered. Interval update 11/10/18: contact, patient is alert and oriented 3, resting in bed in no acute distress. Nursing reports that the patient went into atrial fibrillation/cardiac arrhythmia with positional change this morning. Cardiology to be advised. Overall patient status remains unchanged. Patient does still have slight/mild bilateral upper extremity resting tremor. Patient also reports intermittent but persistent full-body twitching approximately 1-3 times per every 8-12 hours. No further neurological changes noted. Interval update 11/09/18: On contact today, patient is alert and oriented 3, resting in bed in no acute distress. Nursing reports improvement throughout the night with the patient with regards to mentation. Patient's tremor is very mild in the bilateral upper extremities with rest. Patient's lipid panel notes total cholesterol 107, triglycerides 146, LDL 51, HDL 27. Serum homocystine level is still pending. EEG is still pending. Carotid Doppler still pending. Objective - Vital Signs Vital signs: Vital Signs Temp 97.9 F 11/10/18 12:00 Pulse 122 H 11/10/18 12:00 Resp 18 11/10/18 12:00 BP 157/86 11/10/18 12:00 Pulse Ox 95 11/10/18 12:00 Intake & Output 11/09/18 11/10/18 11/10/18 18:59 06:59 18:59 Intake Total 9842 334 6808 Output Total 1200 1300 Balance 725 -880 1639 Intake: IV 480 Sodium Chloride 0.9% 1, 480 000 ml @ 120 mls/hr IV . Q8H20M [facility] Rx#:[id number] Intake, IV Titration 325 300 749 Amount Amiodarone 450 mg In 99 Dextrose 5% in Water 250 ml @ 1 MG/MIN 33.33 mls/ hr IV .Q7H31M [facility] Rx#: [id number] Dextrose 5% in Water 100 100 ml @ 618 mls/hr IV .Q10M ONE with Amiodarone 150 mg Rx#:[id number] Lactated Ringers 1,000 ml 225 300 450 @ 75 mls/hr IV .[id number] [facility] Rx#:[id number] cefTRIAXone 1,000 mg In 100 100 Sodium Chloride 0.9% 50 ml @ 100 mls/hr IVPB Q24HR [facility] Rx#:[id number] Oral 1120 120 890 Output: Urine 1200 1300 Uretheral (Lamas) 400 Other: Voiding Method Indwelling Catheter Indwelling Catheter Indwelling Catheter - Exam Gen. appearance: Alert, in no apparent distress Head: Atraumatic normocephalic, normal inspection Eyes: Well appearance, PERRL, EOMI. nystagmus still present but significantly decreased from yesterday Ear nose and throat: Normal exam, mucous membranes moist Neck: Normal inspection. Absent tenderness, lymphadenopathy Respiratory: No increased work of breathing. Cardiovascular: Regular rate, normal rhythm GIabdominal: No tenderness, no guarding Extremities: Moves all 4 extremities Neurological: Alert and oriented 3, cranial nerves II through XII intact, no unilateral lateralizing weaknessmild left lower extremity weakness, history of knee replacement with known residual weakness post knee arthroplasty, no seizure activity noted on physical exam, no pronator drift and mild nystagmus as noted above Slight resting tremor bilateral upper extremities Psychological: Mood and affect appropriate setting - Labs CBC & Chem 7: 11/10/18 05:52 11/10/18 05:52 Labs: Abnormal Lab Results - Last 24 Hours (Table) 11/09/18 11/10/18 11/10/18 Range/Units 16:50 05:35 05:52 RBC 3.60 L (4.30-5.90) m/uL Hgb 11.3 L (13.0-17.5) gm/dL Hct 35.8 L (39.0-53.0) % Chloride (98-107) mmol/L Carbon Dioxide (22-30) mmol/L BUN (9-20) mg/dL Creatinine (0.66-1.25) mg/dL Glucose (74-99) mg/dL POC Glucose (mg/dL) 347 H 136 H (75-99) mg/dL Calcium (8.4-10.2) mg/dL Total Protein (6.3-8.2) g/dL Albumin (3.5-5.0) g/dL 11/10/18 11/10/18 11/10/18 Range/Units 05:52 12:00 16:35 RBC (4.30-5.90) m/uL Hgb (13.0-17.5) gm/dL Hct (39.0-53.0) % Chloride 115 H (98-107) mmol/L Carbon Dioxide 21 L (22-30) mmol/L BUN 26 H (9-20) mg/dL Creatinine 1.67 H (0.66-1.25) mg/dL Glucose 146 H (74-99) mg/dL POC Glucose (mg/dL) 271 H 278 H (75-99) mg/dL Calcium 8.1 L (8.4-10.2) mg/dL Total Protein 5.1 L (6.3-8.2) g/dL Albumin 2.7 L (3.5-5.0) g/dL Microbiology - Last 24 Hours (Table) 11/07/18 15:30 Urine Culture - Final Urine,Catheterized Enterococcus faecalis Assessment and Plan (1) Lacunar infarct, acute Narrative/Plan: On physical exam, patient exhibited significantly decreased nystagmus to the right and to the left. Finger to nose testing, elicited no blurry vision. Patient is no longer confused with provider and nurse in the room. As previously stated MRI of the brain noted acute lacunar infarct. EEG noted mild encephalopathy. Serum homocysteine level is pending. Patient is currently on anticoagulantEliquis at this time by cardiology. Eliquis to be maintained with 81 mg aspirin daily. Patient was on low-dose Lipitor which will be increased to 40 mg at this time for risk reduction. Recommend speech, PT, OT consult. Continued neuro checks consistent with acute stroke protocol. Current Visit: Yes Status: Acute Code(s): I63.81 - OTHER CEREB INFRC DUE TO OCCLS OR STENOSIS OF SMALL ARTERY SNOMED Code(s): 522674993 (2) Confusion Narrative/Plan: Resolved Current Visit: Yes Status: Acute Code(s): R41.0 - DISORIENTATION, UNSPECIFIED SNOMED Code(s): 824729601 (3) Lower extremity weakness Narrative/Plan: Left lower extremity appears at least in part due to residual weakness from left knee arthroplasty per patient which has caused left lower extremity weakness times several years. Patient has no lower back pain on physical exam. Based on imaging and findings of lacunar infarct some contributory etiology still cannot be ruled out. However, we will need to involve physical therapy and occupational therapy in an aggressive manner for rehabilitative purposes at this time with further recommendations to follow. 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 however, medication implementation is being complicated by the patient's Haldol use. Haldol has a significant interaction with Requip as well as Sinemet of which both her medications of choice to treat the patient's resting tremor. Supervising physician recommends withholding medication at this time for tremor as well as for the noted full body twitch, we will workup the patient in the outpatient setting for the resting tremor and twitch post discharge. We may need to have psychiatric provider intervention and input with regard to Haldol possibly with a substitution / medication change at a later date to allow for Sinemet/Requip use to treat the tremor. We may also order a SPECT that further investigation of Parkinson's. Current Visit: Yes Status: Acute Code(s): R25.1 - TREMOR, UNSPECIFIED SNOMED Code(s): 97074600 Plan: STATUS: Neurology will continue to follow and provide updates as needed or warranted. Feel free to contact our office with any questions. It is likely that neurology will for the patient for discharge from a neurological standpoint on 11/11/18. I discussed the patients history, physical exam, diagnostic testing, lab work and imaging with Dr Coates prior to implementing the plan above. He agrees with the plan as implemented prior to implementation.
[2018-11-10] MEDS: risperiDONE 0.5 MG TAB PO SCH (20:12)
[2018-11-10] MEDS: ATORVASTATIN 40 MG TAB PO SCH (20:12)
[2018-11-10] MEDS: TEMAZEPAM 15 MG CAP PO SCH (20:13)
[2018-11-10 21:36] LABS: Glucose,Whole Blood 269 mg/dL (75-99)
--- NOTE | 2018-11-10 22:36 | PN ---
PROGRESS NOTE The patient is seen for followup for acute kidney injury which was mainly prerenal and associated with urine retention. Renal function has been improving. The patient did have an acute CVA with acute lacunar infarct noted on the MRI. PHYSICAL EXAMINATION: This morning blood pressure was 157/86, heart rate 120 per minute. Patient is afebrile. Examination of the heart S1, S2. Examination of the lungs bilateral breath sounds are heard. Abdomen is soft, nontender. Examination of lower extremity shows no significant edema. CABLE TELE[employer]ION [employer] TECHNICIAN exam is grossly intact. No focal deficits are noted. LAB: Show sodium 141, potassium 3.8, chloride 115, BUN 26, serum creatinine 1.67, albumin 2.7, hemoglobin 11.3. ASSESSMENT: 1. Acute kidney injury secondary to urine retention and hypovolemia, currently improving with IV fluids. Patient has an indwelling Lamas catheter. 2. Status post acute CVA. No focal deficits noted at this time. The patient has been confused at the time of admission. His mentation is significantly improved now. 3. Hypertension, currently controlled. 4. Paroxysmal atrial fibrillation with RVR, now with controlled ventricular response. 5. Cardiomyopathy, ejection fraction 55-66 percent with severely dilated left atrium and concentric left ventricular hypertrophy noted. 6. Metabolic acidosis secondary to renal failure, currently improved. PLAN: Continue IV fluids and repeat labs in a.m. Continue with Lamas catheter for now. MMODL / IJN: [id number] /
[2018-11-11] MEDS: AMIODARONE 450 MG in DEXTROSE 5% IN WATER 250 ML IV SCH ×4 (00:37→11:10)
[2018-11-11] MEDS: LACTATED RINGERS 1,000 ML IV SCH ×2 (03:19→16:35)
[2018-11-11 05:47] LABS: Glucose,Whole Blood 214 mg/dL (75-99)
[2018-11-11] MEDS: PANTOPRAZOLE 40 MG TABLET PO SCH (06:31)
[2018-11-11] MEDS: LEVOTHYROXINE 88 MCG TAB PO SCH (06:31)
[2018-11-11] MEDS: INSULIN ASPART 100 UNIT/ML 1 ML 10 ML VIAL SQ SCH ×4 (06:31→20:34)
[2018-11-11 07:42] LABS: Basophils % (A) 1 %; Eosinophils # (A) 0.3 k/uL (0-0.7); Eosinophils % (A) 4 %; HCT 36.7 % (39.0-53.0); HGB 11.8 gm/dL (13.0-17.5); Lymphocytes # (A) 1.1 k/uL (1.0-4.8); Lymphocytes % (A) 14 %; MCHC 32.2 g/dL (31.0-37.0); MCV 99.4 fL (80.0-100.0); Mean Platelet Volume 7.2; Monocytes # (A) 0.6 k/uL (0-1.0); Monocytes % (A) 7 %; Neutrophils # (A) 5.6 k/uL (1.3-7.7); Neutrophils % (A) 72 %; Platelet Count 194 k/uL (150-450); RBC 3.69 m/uL (4.30-5.90); RDW 13.5 % (11.5-15.5); WBC 7.8 k/uL (3.8-10.6)
[2018-11-11 08:14] LABS: Albumin 2.6 g/dL (3.5-5.0); Potassium 3.7 mmol/L (3.5-5.1); Total Bilirubin 0.4 mg/dL (0.2-1.3); Total Protein 5.1 g/dL (6.3-8.2)
[2018-11-11] MEDS: ASPIRIN 81 MG PO SCH (08:40)
[2018-11-11] MEDS: hydrALAZINE HCL 25 MG TAB PO SCH (08:40)
[2018-11-11] MEDS: ATENOLOL 25 MG TAB PO SCH ×2 (08:40→20:24)
[2018-11-11] MEDS: LORATADINE 10 MG TAB PO SCH (08:40)
[2018-11-11] MEDS: amLODIPine 10 MG TAB PO SCH (08:40)
[2018-11-11] MEDS: CYANOCOBALAMIN 500 MCG TAB PO SCH (08:40)
[2018-11-11] MEDS: APIXABAN 2.5 MG TABLET PO SCH ×2 (08:40→20:25)
[2018-11-11] MEDS: CITALOPRAM HYDROBROMIDE 20 MG TAB PO SCH ×2 (08:40→16:35)
[2018-11-11] MEDS: VIT A,C & E-LUTEIN-MINERALS 1 EACH TAB PO SCH ×2 (08:40→20:26)
[2018-11-11] MEDS: cycloSPORINE 0.05% OPHTH 0.4 ML DROPERETTE BOTH EYES SCH ×2 (08:41→20:25)
[2018-11-11] MEDS: buPROPion 75 MG TAB PO SCH ×2 (08:41→20:25)
[2018-11-11] MEDS: TAMSULOSIN 0.4 MG CAP.ER.24H PO SCH ×2 (08:45→20:26)
[2018-11-11] MEDS ORDERED: LACTULOSE 20 GM/30 ML CUP PO ONE (10:45)
--- NOTE | 2018-11-11 10:48 | P.PN ---
Subjective Progress Note Date: 11/11/18 This is a 83-year-old male patient of Dr. Joseph. Patient presented to the emergency room complaining of multiple falls that has been occurring over the past 2 days. She denies tripping. Per patient fell out of bed. Patient also states he is having chest pain. Patient does follow with cardiology services. Patient does appear to be a poor historian. Family is at bedside. She doesn't past medical history of diabetes mellitus, GERD, hyperlipidemia, hypertension, myocardial infarction, pneumonia, sleep apnea and thyroid answer. patient also states he has history of heart cath with stents. Last heart cath was in 2013. Chest x-ray completed showing elevated right pepito-diaphragm neck with right basilar consolidation which may be related to atelectasis rather than pneumonia correlate clinically for confirmation. Cardiomegaly. CT of head completed showing degenerative and nonspecific white matter changes most typical remote ischemia. EKG completed showing sinus bradycardia with heart rate 58. Creatinine 2.45 and bun 41 potassium also elevated at 5.2. Patient also states he fell on Thanksgiving his back at this time. Patient denies any back x-rays being completed. Dr. Sauer will be consulted for nephrology services. Dr. Sparks has been consulted for cardiology services. Patient does complain of some burning with urination. Urinary analysis has been ordered. Denies cough or shortness breath. Denies nausea vomiting or diarrhea. On 11/08/2018 patient is currently resting in bed. Patient does appear more confused than yesterday. Patient also went into atrial fibrillation last night. Cardiology services are following and recommending eliquis for anticoagulation. Patient also continued to have tremor. Patient is on multiple psych medications. Recommending neurology consult for further evaluation. Patient also to be transferred to cardiac stepdown unit for closer monitoring. On 11/09/2018 patient is alert and responsive in no apparent distress he just received an EEG per neurology orders, MRI last night revealed evidence of lacunar infarct, overall condition is improving, there is no fever or chills no headache or dizziness no chest pain no shortness of breath at this time no cough no nausea or vomiting no abdominal pain and no urinary symptoms. On 11/10/2018 patient is alert and oriented 3 in no apparent distress he denies any pain he is complaining of generalized weakness otherwise he denies any complaints at this time 11/11/2018 patient is currently in sinus bradycardia. Amiodarone drip discontinued this morning. Cardiology following. Patient also having elevated blood pressures. Hydralazine added yesterday and and atenolol increased to 25 mg twice a day. Awaiting repeat blood pressure after morning meds. Patient's seen by neurology. They're concerned about possible Parkinson's however unable to start any medications for patient's tremors due to patient's psych meds. Patient reports been about 4 days since his last bowel movement. Passing some gas. No abdominal pain. Some mild nausea no actual vomiting. Objective - Vital Signs Vital signs: Vital Signs Temp 97.4 F L 11/11/18 08:00 Pulse 60 11/11/18 08:00 Resp 16 11/11/18 08:00 BP 196/73 11/11/18 08:00 Pulse Ox 91 L 11/11/18 08:00 Intake & Output 11/10/18 11/11/18 11/11/18 18:59 06:59 18:59 Intake Total 1879 281.065 222 Output Total 500 1125 Balance 1379 -843.935 222 Intake: Intake, IV Titration 749 281.065 Amount Amiodarone 450 mg In 99 281.065 Dextrose 5% in Water 250 ml @ 1 MG/MIN 33.33 mls/ hr IV .Q7H31M [facility] Rx#: [id number] Dextrose 5% in Water 100 100 ml @ 618 mls/hr IV .Q10M ONE with Amiodarone 150 mg Rx#:[id number] Lactated Ringers 1,000 ml 450 @ 75 mls/hr IV .[id number] [facility] Rx#:[id number] cefTRIAXone 1,000 mg In 100 Sodium Chloride 0.9% 50 ml @ 100 mls/hr IVPB Q24HR [facility] Rx#:[id number] Oral 1130 222 Output: Urine 500 1125 Other: Voiding Method Indwelling Catheter Indwelling Catheter Indwelling Catheter # Voids 1 - Exam Head normocephalic Neck supple Lungs clear to auscultation bilaterally no wheezing or crackles Heart regular rate and rhythm S1-S2, no rub or gallop Abdomen is soft nontender nondistended positive bowel sounds no hepatosplenomegaly Extremities no edema Neuro alert and orientated to 3 - Labs CBC & Chem 7: 11/11/18 06:51 11/11/18 06:51 Labs: Abnormal Lab Results - Last 24 Hours (Table) 11/10/18 11/10/18 11/10/18 Range/Units 12:00 16:35 21:35 RBC (4.30-5.90) m/uL Hgb (13.0-17.5) gm/dL Hct (39.0-53.0) % Chloride (98-107) mmol/L BUN (9-20) mg/dL Creatinine (0.66-1.25) mg/dL Glucose (74-99) mg/dL POC Glucose (mg/dL) 271 H 278 H 269 H (75-99) mg/dL Total Protein (6.3-8.2) g/dL Albumin (3.5-5.0) g/dL 11/11/18 11/11/18 11/11/18 Range/Units 05:45 06:51 06:51 RBC 3.69 L (4.30-5.90) m/uL Hgb 11.8 L (13.0-17.5) gm/dL Hct 36.7 L (39.0-53.0) % Chloride 114 H (98-107) mmol/L BUN 21 H (9-20) mg/dL Creatinine 1.45 H (0.66-1.25) mg/dL Glucose 205 H (74-99) mg/dL POC Glucose (mg/dL) 214 H (75-99) mg/dL Total Protein 5.1 L (6.3-8.2) g/dL Albumin 2.6 L (3.5-5.0) g/dL Assessment and Plan Assessment: 1. Acute lacunar infarct with Increased weakness with falls. Possibly secondary to patient's new onset of atrial fibrillation. Head CT completed showing degenerative and nonspecific white matter change most typical of remote ischemia. MRI was suggestive of acute lacunar infarct neurology are following . EEG noted mild encephalopathy. Neurology following. 2. Possible Syncopal episode. Carotid ultrasound completed showing close to 50 % stenosis in both internal carotid arteries more than 50% stenosis in the right external carotid artery. 3. Chest pain. Initial troponin negative. Cardiac enzymes ordered. Cardiac telemetry ordered. Cardiology services consulted 4. Acute on chronic kidney disease. Acute component is related to prerenal azotemia and urinary retention and hypokalemia. patient is maintained on IV fluid and Flomax Creatinine improved today down to 1.45. Nephrology following 5. Hyperkalemia. Resolved potassium 4.1 today 6. Back pain. Patient states he fell a few weeks ago and hurt his back. X- ray thoracic spine completed showing some demineralization with no evidence of acute fracture or dislocation 7. Diabetes mellitus. Home medications held at this time will order sliding scale coverage 8. History of cardiac stent. 9. History of thyroid cancer. 10. Hypothyroidism patient maintained on Synthroid 11. Essential hypertension 12. History of GERD 13. History of anxiety and depression. Home meds resumed 14. Evidence of acute lacunar infarct in the right posterior parietal lobe 15. Increased confusion. Neurology services consulted 16. Right basal consolidation seen on chest x-ray. Pulmonary services have been consulted 17. Tremor. Evaluated by neurology. Concerns of possible he could be related to Parkinson's and also his lacunar infarct. Unfortunately cannot start Parkinson medications for tremor due to patient's psychiatric medications. Patient will follow-up with neurology outpatient. 18. New-onset atrial fibrillation with rapid ventricular response during this admission. Patient has converted to sinus rhythm. Evaluated by cardiology. Currently off of the amiodarone drip. Cardiology increased the atenolol to 25 mg twice a day. Anticoagulated with Eliquis 19. Essential hypertension with elevated uncontrolled blood pressures. Hydralazine 25 mg twice a day increased by cardiology. 20. constipation give Colace and lactulose 21. UTI: Urine culture growing enterococcus faecalis. Patient currently on Rocephin DVT prophylaxis Eliquis. GI prophylaxis pepcid I performed an examination of the patient and discussed their management with the physician Web Analyst. I have reviewed the Physician Web Analyst's notes and agree with the documented findings and plan of care
--- NOTE | 2018-11-11 11:28 | P.PN ---
Subjective Progress Note Date: 11/11/18 Seen and examined for the follow-up of acute kidney injury. Creatinine at baseline. Still has Lamas catheter. Draining good amount of urine blood pressure slightly high. Objective - Vital Signs Vital signs: Vital Signs Temp 97.4 F L 11/11/18 08:00 Pulse 60 11/11/18 08:00 Resp 16 11/11/18 08:00 BP 196/73 11/11/18 08:00 Pulse Ox 91 L 11/11/18 08:00 Intake & Output 11/10/18 11/11/18 11/11/18 18:59 06:59 18:59 Intake Total 1879 281.065 222 Output Total 500 1125 Balance 1379 -843.935 222 Intake: Intake, IV Titration 749 281.065 Amount Amiodarone 450 mg In 99 281.065 Dextrose 5% in Water 250 ml @ 1 MG/MIN 33.33 mls/ hr IV .Q7H31M [facility] Rx#: [id number] Dextrose 5% in Water 100 100 ml @ 618 mls/hr IV .Q10M ONE with Amiodarone 150 mg Rx#:[id number] Lactated Ringers 1,000 ml 450 @ 75 mls/hr IV .[id number] [facility] Rx#:[id number] cefTRIAXone 1,000 mg In 100 Sodium Chloride 0.9% 50 ml @ 100 mls/hr IVPB Q24HR [facility] Rx#:[id number] Oral 1130 222 Output: Urine 500 1125 Other: Voiding Method Indwelling Catheter Indwelling Catheter Indwelling Catheter # Voids 1 - Exam No acute distress Moving along with therapy. Lamas catheter No edema - Labs CBC & Chem 7: 11/11/18 06:51 11/11/18 06:51 Labs: Abnormal Lab Results - Last 24 Hours (Table) 11/10/18 11/10/18 11/10/18 Range/Units 12:00 16:35 21:35 RBC (4.30-5.90) m/uL Hgb (13.0-17.5) gm/dL Hct (39.0-53.0) % Chloride (98-107) mmol/L BUN (9-20) mg/dL Creatinine (0.66-1.25) mg/dL Glucose (74-99) mg/dL POC Glucose (mg/dL) 271 H 278 H 269 H (75-99) mg/dL Total Protein (6.3-8.2) g/dL Albumin (3.5-5.0) g/dL 11/11/18 11/11/18 11/11/18 Range/Units 05:45 06:51 06:51 RBC 3.69 L (4.30-5.90) m/uL Hgb 11.8 L (13.0-17.5) gm/dL Hct 36.7 L (39.0-53.0) % Chloride 114 H (98-107) mmol/L BUN 21 H (9-20) mg/dL Creatinine 1.45 H (0.66-1.25) mg/dL Glucose 205 H (74-99) mg/dL POC Glucose (mg/dL) 214 H (75-99) mg/dL Total Protein 5.1 L (6.3-8.2) g/dL Albumin 2.6 L (3.5-5.0) g/dL Assessment and Plan Assessment: #1 Acute kidney injury secondary to urinary retention and hypokalemia resolved. #2 chronic kidney disease stage III baseline creatinine 18753 MG per DL. Secondary to nephrosclerosis #3 hypertension currently uncontrolled goal less than 140/90. #4 paroxysmal A. fib #5 cardiomyopathy with diastolic dysfunction EF of 55% #6 metabolic acidosis improved #7 status post CVA Plan: #1 creatinine currently at baseline. Lamas catheter as per urology #2 increase hydralazine to 50 mg 3 times a day to achieve blood pressure at goal. #3 if renal function continued to stable in next 2 days considering adding Cozaar #4 avoid nephrotoxic agents and hypotensive episodes.
[2018-11-11] MEDS ORDERED: hydrALAZINE HCL 25 MG TAB PO ONE (11:30)
[2018-11-11 11:41] LABS: Glucose,Whole Blood 341 mg/dL (75-99)
--- NOTE | 2018-11-11 14:11 | P.PN ---
Subjective Progress Note Date: 11/11/18 Principal diagnosis: Lacunar infarct Neurology is following an 83-year-old male initially for tremor and currently for tremor and acute lacunar infarct. Patient was brought to the ED on after multiple falls have been occurring for the previous 2 days. Patient was having chest pain. He was following with cardiology with a known history of diabetes, GERD, hyperlipidemia, hypertension, history of NC, pneumonia, sleep apnea and thyroid disorder. She also has history of heart catheterization with stent. Last heart cath was in 2013. Chest x-ray noted right hemidiaphragm with basilar consolidation which may be related to atelectasis. CT brain showed degenerative and nonspecific white matter changes most typical with remote ischemia. EKG showed sinus bradycardia. Patient did have a fall on . Nephrology and cardiology are organic consult. Patient does have complaints of burning with urination. On 11/08/18 patient was observed to be confused the previous day by hospitalist and also exhibited tremor. Patient is known to be on multiple psychiatric medications including Klonopin. Patient had discontinued Klonopin at home and was on 3 mg per day prior for greater than 2 years. Yesterday on contact with the patient, the patient was observed to be alert and oriented 1, resting in bed. Nurses in the room at that time administering medications. He did not have any obvious tremor at that time did decline significantly during the physical assessment. Stat MRI of the brain was ordered and acute lacunar infarct was noted. Patient is noted to be Eliquis, aspirin and then was placed on Lipitor 40 mg by provider for prevention. Lipid panel, homocysteine level, EEG and carotid Doppler ordered. Interval update 11/11/18: Neurological standpoint, patient is progressing well. Patient was AOx3, seat at the side of the side of the bed. Nursing was in the room. His blood pressure is still relatively uncontrolled. Nursing conducted a blood pressure assessment while in the room and it was noted to be in the 190s the patient was reporting increased dizziness. At this point, his blood pressure is still problematic. Interval update 11/10/18: contact, patient is alert and oriented 3, resting in bed in no acute distress. Nursing reports that the patient went into atrial fibrillation/cardiac arrhythmia with positional change this morning. Cardiology to be advised. Overall patient status remains unchanged. Patient does still have slight/mild bilateral upper extremity resting tremor. Patient also reports intermittent but persistent full-body twitching approximately 1-3 times per every 8-12 hours. No further neurological changes noted. Interval update 11/09/18: On contact today, patient is alert and oriented 3, resting in bed in no acute distress. Nursing reports improvement throughout the night with the patient with regards to mentation. Patient's tremor is very mild in the bilateral upper extremities with rest. Patient's lipid panel notes total cholesterol 107, triglycerides 146, LDL 51, HDL 27. Serum homocystine level is still pending. EEG is still pending. Carotid Doppler still pending. Objective - Vital Signs Vital signs: Vital Signs Temp 97.2 F L 11/11/18 12:00 Pulse 62 11/11/18 12:00 Resp 16 11/11/18 12:00 BP 111/72 11/11/18 12:00 Pulse Ox 96 11/11/18 12:00 Intake & Output 11/10/18 11/11/18 11/11/18 18:59 06:59 18:59 Intake Total 1879 281.065 222 Output Total 500 1125 Balance 1379 -843.935 222 Intake: Intake, IV Titration 749 281.065 Amount Amiodarone 450 mg In 99 281.065 Dextrose 5% in Water 250 ml @ 1 MG/MIN 33.33 mls/ hr IV .Q7H31M [facility] Rx#: [id number] Dextrose 5% in Water 100 100 ml @ 618 mls/hr IV .Q10M ONE with Amiodarone 150 mg Rx#:[id number] Lactated Ringers 1,000 ml 450 @ 75 mls/hr IV .[id number] [facility] Rx#:[id number] cefTRIAXone 1,000 mg In 100 Sodium Chloride 0.9% 50 ml @ 100 mls/hr IVPB Q24HR [facility] Rx#:[id number] Oral 1130 222 Output: Urine 500 1125 Other: Voiding Method Indwelling Catheter Indwelling Catheter Indwelling Catheter # Voids 1 - Exam Gen. appearance: Alert, in no apparent distress Head: Atraumatic normocephalic, normal inspection Eyes: Well appearance, PERRL, EOMI. nystagmus still present but significantly decreased from yesterday Ear nose and throat: Normal exam, mucous membranes moist Neck: Normal inspection. Absent tenderness, lymphadenopathy Respiratory: No increased work of breathing. Cardiovascular: Regular rate, normal rhythm GIabdominal: No tenderness, no guarding Extremities: Moves all 4 extremities Neurological: Alert and oriented 3, cranial nerves II through XII intact, no unilateral lateralizing weaknessmild left lower extremity weakness, history of knee replacement with known residual weakness post knee arthroplasty, no seizure activity noted on physical exam, no pronator drift and mild nystagmus as noted above Slight resting tremor bilateral upper extremities Psychological: Mood and affect appropriate setting - Labs CBC & Chem 7: 11/11/18 06:51 11/11/18 06:51 Labs: Abnormal Lab Results - Last 24 Hours (Table) 11/10/18 11/10/18 11/11/18 Range/Units 16:35 21:35 05:45 RBC (4.30-5.90) m/uL Hgb (13.0-17.5) gm/dL Hct (39.0-53.0) % Chloride (98-107) mmol/L BUN (9-20) mg/dL Creatinine (0.66-1.25) mg/dL Glucose (74-99) mg/dL POC Glucose (mg/dL) 278 H 269 H 214 H (75-99) mg/dL Total Protein (6.3-8.2) g/dL Albumin (3.5-5.0) g/dL 11/11/18 11/11/18 11/11/18 Range/Units 06:51 06:51 11:39 RBC 3.69 L (4.30-5.90) m/uL Hgb 11.8 L (13.0-17.5) gm/dL Hct 36.7 L (39.0-53.0) % Chloride 114 H (98-107) mmol/L BUN 21 H (9-20) mg/dL Creatinine 1.45 H (0.66-1.25) mg/dL Glucose 205 H (74-99) mg/dL POC Glucose (mg/dL) 341 H (75-99) mg/dL Total Protein 5.1 L (6.3-8.2) g/dL Albumin 2.6 L (3.5-5.0) g/dL Assessment and Plan (1) Lacunar infarct, acute Narrative/Plan: On physical exam, patient exhibited significantly decreased nystagmus to the right and to the left. Finger to nose testing, elicited no blurry vision. Patient is no longer confused with provider and nurse in the room. As previously stated MRI of the brain noted acute lacunar infarct. EEG noted mild encephalopathy. Serum homocysteine level is pending. Patient is currently on anticoagulantEliquis at this time by cardiology. Eliquis to be maintained with 81 mg aspirin daily. Patient was on low-dose Lipitor which will be increased to 40 mg at this time for risk reduction. Recommend speech, PT, OT consult. Continued neuro checks consistent with acute stroke protocol. Any dizziness will be addressed from a neurological standpoint once his blood pressure is regulated and consistently managed. We will address this in the outpatient setting and evaluate whether or not further testing is warranted at that time as well which can be performed in the office. Current Visit: Yes Status: Acute Code(s): I63.81 - OTHER CEREB INFRC DUE TO OCCLS OR STENOSIS OF SMALL ARTERY SNOMED Code(s): 864057097 (2) Confusion Narrative/Plan: Resolved Current Visit: Yes Status: Acute Code(s): R41.0 - DISORIENTATION, UNSPECIFIED SNOMED Code(s): 072037187 (3) Lower extremity weakness Narrative/Plan: Left lower extremity appears at least in part due to residual weakness from left knee arthroplasty per patient which has caused left lower extremity weakness times several years. Patient has no lower back pain on physical exam. Based on imaging and findings of lacunar infarct some contributory etiology still cannot be ruled out. However, we will need to involve physical therapy and occupational therapy in an aggressive manner for rehabilitative purposes at this time with further recommendations to follow. 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 Additionally his Celexa is also problematic with regard to tremor medication initiation. We will workup and manage the tremor in the outpatient setting. Current Visit: Yes Status: Acute Code(s): R25.1 - TREMOR, UNSPECIFIED SNOMED Code(s): 74549375 Plan: STATUS: Neurology will clear the patient for discharge from a neurological standpoint. I discussed the patients history, physical exam, diagnostic testing, lab work and imaging with Dr Coates prior to implementing the plan above. He agrees with the plan as implemented prior to implementation.
--- NOTE | 2018-11-11 15:26 | P.PN ---
Subjective Progress Note Date: 11/11/18 This 83-year-old gentleman with history of coronary artery disease with a history of previous stent placement, hypertension, dyslipidemia, diabetes mellitus and also ischemic cardiomyopathy. Patient was admitted with a Marcin infarct. Patient was having intermittent and paroxysmal atrial fibrillation. Patient was started on IV amiodarone yesterday. His blood pressure was high in the morning but subsequently came down. Patient is back in sinus rhythm. His creatinine is improving. Patient seemed developed and responding well. Patient still has a Lamas catheter. Overall his patient seemed much more stable. We'll start him on by mouth amiodarone. Patient is also on anticoagulation therapy. Patient may need physical therapy Objective - Vital Signs Vital signs: Vital Signs Temp 97.2 F L 11/11/18 12:00 Pulse 62 11/11/18 12:00 Resp 16 11/11/18 12:00 BP 111/72 11/11/18 12:00 Pulse Ox 96 11/11/18 12:00 Intake & Output 11/10/18 11/11/18 11/11/18 18:59 06:59 18:59 Intake Total 1879 281.065 462 Output Total 500 1125 800 Balance 1379 -843.935 -338 Intake: Intake, IV Titration 749 281.065 Amount Amiodarone 450 mg In 99 281.065 Dextrose 5% in Water 250 ml @ 1 MG/MIN 33.33 mls/ hr IV .Q7H31M [facility] Rx#: [id number] Dextrose 5% in Water 100 100 ml @ 618 mls/hr IV .Q10M ONE with Amiodarone 150 mg Rx#:[id number] Lactated Ringers 1,000 ml 450 @ 75 mls/hr IV .[id number] [facility] Rx#:[id number] cefTRIAXone 1,000 mg In 100 Sodium Chloride 0.9% 50 ml @ 100 mls/hr IVPB Q24HR [facility] Rx#:[id number] Oral 1130 462 Output: Urine 500 1125 800 Other: Voiding Method Indwelling Catheter Indwelling Catheter Indwelling Catheter # Voids 1 - Exam GENERAL EXAM: Patient is alert and doesn't appear to be in any acute distress HEENT: Normocephalic. Normal reaction of pupils, equal size, normal range of extraocular motion. No erythema or exudates in the throat. NECK: No masses, no nuchal rigidity. CHEST: No chest wall deformity. LUNGS: Equal air entry with no crackles or wheeze. HEART: S1 and S2 normal with no audible mumurs or gallops. Regular rhythm, femorals equal on both sides.. ABDOMEN: No hepatosplenomegaly, normal bowel sounds, no guarding or rigidity. SKIN: No rashes CENTRAL NERVOUS SYSTEM: As per neurology EXTREMITIES: No cyanosis, clubbing or edema. - Labs CBC & Chem 7: 11/11/18 06:51 11/11/18 06:51 Labs: Abnormal Lab Results - Last 24 Hours (Table) 11/10/18 11/10/18 11/11/18 Range/Units 16:35 21:35 05:45 RBC (4.30-5.90) m/uL Hgb (13.0-17.5) gm/dL Hct (39.0-53.0) % Chloride (98-107) mmol/L BUN (9-20) mg/dL Creatinine (0.66-1.25) mg/dL Glucose (74-99) mg/dL POC Glucose (mg/dL) 278 H 269 H 214 H (75-99) mg/dL Total Protein (6.3-8.2) g/dL Albumin (3.5-5.0) g/dL 11/11/18 11/11/18 11/11/18 Range/Units 06:51 06:51 11:39 RBC 3.69 L (4.30-5.90) m/uL Hgb 11.8 L (13.0-17.5) gm/dL Hct 36.7 L (39.0-53.0) % Chloride 114 H (98-107) mmol/L BUN 21 H (9-20) mg/dL Creatinine 1.45 H (0.66-1.25) mg/dL Glucose 205 H (74-99) mg/dL POC Glucose (mg/dL) 341 H (75-99) mg/dL Total Protein 5.1 L (6.3-8.2) g/dL Albumin 2.6 L (3.5-5.0) g/dL Assessment and Plan (1) Paroxysmal atrial fibrillation Current Visit: Yes Status: Acute Code(s): I48.0 - PAROXYSMAL ATRIAL FIBRILLATION SNOMED Code(s): 986554594 (2) CAD (coronary artery disease) Current Visit: Yes Status: Acute Code(s): I25.10 - ATHSCL HEART DISEASE OF [place] CORONARY ARTERY W/O ANG PCTRS SNOMED Code(s): 46767172 (3) Lacunar infarct, acute Current Visit: Yes Status: Acute Code(s): I63.81 - OTHER CEREB INFRC DUE TO OCCLS OR STENOSIS OF SMALL ARTERY SNOMED Code(s): 465064257 (4) Acute renal failure (ARF) Current Visit: Yes Status: Acute Code(s): N17.9 - ACUTE KIDNEY FAILURE, UNSPECIFIED SNOMED Code(s): 87127537 Plan: Continue current management. Physical therapy. May consider removal of Lamas
[2018-11-11] MEDS: hydrALAZINE HCL 50 MG TAB PO SCH ×2 (16:34→20:26)
[2018-11-11] MEDS: AMOXICILLIN 500 MG CAP PO SCH ×2 (16:35→22:50)
[2018-11-11 16:41] LABS: Glucose,Whole Blood 267 mg/dL (75-99)
[2018-11-11] MEDS: ATORVASTATIN 40 MG TAB PO SCH (20:25)
[2018-11-11] MEDS: DOCUSATE 100 MG CAP PO SCH (20:25)
[2018-11-11] MEDS: TEMAZEPAM 15 MG CAP PO SCH (20:26)
[2018-11-11] MEDS: risperiDONE 0.5 MG TAB PO SCH (20:26)
[2018-11-11 20:33] LABS: Glucose,Whole Blood 280 mg/dL (75-99)
[2018-11-12] MEDS: LACTATED RINGERS 1,000 ML IV SCH (03:47)
[2018-11-12 06:15] LABS: Glucose,Whole Blood 233 mg/dL (75-99)
[2018-11-12] MEDS: LEVOTHYROXINE 88 MCG TAB PO SCH (06:29)
[2018-11-12] MEDS: PANTOPRAZOLE 40 MG TABLET PO SCH (06:29)
[2018-11-12] MEDS: INSULIN ASPART 100 UNIT/ML 1 ML 10 ML VIAL SQ SCH ×4 (06:30→22:01)
[2018-11-12 07:17] LABS: Basophils # (A) 0.1 k/uL (0-0.2); Basophils % (A) 1 %; Eosinophils # (A) 0.3 k/uL (0-0.7); Eosinophils % (A) 3 %; HCT 39.9 % (39.0-53.0); HGB 12.3 gm/dL (13.0-17.5); Hypochromasia Slight; Lymphocytes # (A) 1.2 k/uL (1.0-4.8); Lymphocytes % (A) 12 %; MCH 31.7 pg (25.0-35.0); MCHC 30.8 g/dL (31.0-37.0); MCV 103.1 fL (80.0-100.0); Macrocytosis Slight; Mean Platelet Volume 7.6; Monocytes # (A) 0.6 k/uL (0-1.0); Monocytes % (A) 6 %; Neutrophils # (A) 7.4 k/uL (1.3-7.7); Neutrophils % (A) 76 %; Platelet Count 217 k/uL (150-450); RBC 3.87 m/uL (4.30-5.90); RDW 13.8 % (11.5-15.5); WBC 9.7 k/uL (3.8-10.6)
[2018-11-12 07:28] LABS: Albumin 2.9 g/dL (3.5-5.0); Calcium 9.1 mg/dL (8.4-10.2); Total Bilirubin 0.6 mg/dL (0.2-1.3); Total Protein 5.8 g/dL (6.3-8.2)
[2018-11-12 07:32] LABS: Potassium 4.2 mmol/L (3.5-5.1)
[2018-11-12] MEDS: hydrALAZINE HCL 50 MG TAB PO SCH ×3 (08:35→21:06)
[2018-11-12] MEDS: TAMSULOSIN 0.4 MG CAP.ER.24H PO SCH ×2 (08:35→21:06)
[2018-11-12] MEDS: LORATADINE 10 MG TAB PO SCH (08:35)
[2018-11-12] MEDS: ATENOLOL 25 MG TAB PO SCH ×2 (08:36→21:07)
[2018-11-12] MEDS: VIT A,C & E-LUTEIN-MINERALS 1 EACH TAB PO SCH ×2 (08:36→21:07)
[2018-11-12] MEDS: AMOXICILLIN 500 MG CAP PO SCH ×3 (08:36→23:29)
[2018-11-12] MEDS: APIXABAN 2.5 MG TABLET PO SCH ×2 (08:36→21:07)
[2018-11-12] MEDS: amLODIPine 10 MG TAB PO SCH (08:36)
[2018-11-12] MEDS: ASPIRIN 81 MG PO SCH (08:36)
[2018-11-12] MEDS: CYANOCOBALAMIN 500 MCG TAB PO SCH (08:37)
[2018-11-12] MEDS: buPROPion 75 MG TAB PO SCH (08:37)
[2018-11-12] MEDS: CITALOPRAM HYDROBROMIDE 20 MG TAB PO SCH ×2 (08:37→17:45)
[2018-11-12] MEDS: cycloSPORINE 0.05% OPHTH 0.4 ML DROPERETTE BOTH EYES SCH ×2 (08:37→21:07)
[2018-11-12] MEDS: DOCUSATE 100 MG CAP PO SCH ×2 (08:38→21:06)
--- NOTE | 2018-11-12 10:48 | P.PN ---
Subjective Progress Note Date: 11/12/18 Seen and examined for the follow-up of acute kidney injury. Creatinine at baseline. Still has Lamas catheter. Draining good amount of urine. Objective - Vital Signs Vital signs: Vital Signs Temp 97.5 F L 11/12/18 09:00 Pulse 61 11/12/18 09:00 Resp 20 11/12/18 09:00 BP 181/73 11/12/18 09:00 Pulse Ox 93 L 11/12/18 09:00 Intake & Output 11/11/18 11/12/18 11/12/18 18:59 06:59 18:59 Intake Total 462 10 Output Total 800 1200 Balance -338 -1190 Weight 92.7 kg Intake: IV 10 0.9 10 Oral 462 Output: Urine 800 1200 Other: Voiding Method Indwelling Catheter Indwelling Catheter Indwelling Catheter - Exam No acute distress Moving along with therapy. Lamas catheter No edema - Labs CBC & Chem 7: 11/12/18 06:02 11/12/18 06:02 Labs: Abnormal Lab Results - Last 24 Hours (Table) 11/11/18 11/11/18 11/11/18 Range/Units 11:39 16:39 20:32 RBC (4.30-5.90) m/uL Hgb (13.0-17.5) gm/dL MCV (80.0-100.0) fL MCHC (31.0-37.0) g/dL Chloride (98-107) mmol/L Carbon Dioxide (22-30) mmol/L Creatinine (0.66-1.25) mg/dL Glucose (74-99) mg/dL POC Glucose (mg/dL) 341 H 267 H 280 H (75-99) mg/dL AST (17-59) U/L Alkaline Phosphatase (38-126) U/L Total Protein (6.3-8.2) g/dL Albumin (3.5-5.0) g/dL 11/12/18 11/12/18 11/12/18 Range/Units 06:02 06:02 06:13 RBC 3.87 L (4.30-5.90) m/uL Hgb 12.3 L (13.0-17.5) gm/dL MCV 103.1 H (80.0-100.0) fL MCHC 30.8 L (31.0-37.0) g/dL Chloride 114 H (98-107) mmol/L Carbon Dioxide 19 L (22-30) mmol/L Creatinine 1.60 H (0.66-1.25) mg/dL Glucose 224 H (74-99) mg/dL POC Glucose (mg/dL) 233 H (75-99) mg/dL AST 61 H (17-59) U/L Alkaline Phosphatase 130 H (38-126) U/L Total Protein 5.8 L (6.3-8.2) g/dL Albumin 2.9 L (3.5-5.0) g/dL Assessment and Plan Assessment: #1 Acute kidney injury secondary to urinary retention and hypokalemia resolved. #2 chronic kidney disease stage III baseline creatinine 15700 MG per DL. Secondary to nephrosclerosis #3 hypertension currently uncontrolled goal less than 140/90. #4 paroxysmal A. fib #5 cardiomyopathy with diastolic dysfunction EF of 55% #6 metabolic acidosis improved #7 status post CVA Plan: #1 creatinine currently at baseline. Lamas catheter as per urology #2 hydralazine was increased yesterday. Monitor blood pressure closely. #3. Ringer's lactate and add Lasix 20 mg IV twice a day. #4 if renal function continued to stable in next 2 days considering adding Cozaar #5 avoid nephrotoxic agents and hypotensive episodes.
--- NOTE | 2018-11-12 11:43 | P.CN ---
Psychiatric Consult - . Consult date: 11/12/18 Consult:: 11/12/18 11:38 Chief Complaint : Worsening psychoses and depression HPI : Mr. Alcantar is 83 yo male with h/o Schizophrenia and multiple medical problems admitted here secondary to weakness.. Reportedly he has has been feeling depressed lately due to worsening health issues. He has been treated for schizophrenia in past. He is not taking proper adequate medications. He has been hearing voices and seeing things which are frustrating to him. Denies any active suicidal ideation. Denes symptoms of colten or OCD to me. Past Psych Hx: Depression Past Medical History : Please see HPI Personal/Social : Lives with his Review of systems : Refer to HPI Mental status Exam : Alert, awake oriented in all spheres. Mildy obese sitting in chair. Poor eye contact. Speech soft tone. Mood depressed with congruent affect. Denies suicidal or homicidal ideation. Has auditory hallucinations. insight and judgment improving. A/P : Schizoaffective Disorder, depressed mood Will titrate up Risperdal to 1 mg po BID and discontinue wellbutrin completely. Encouraged to be complaint on medications. Supportive therapy provided.
[2018-11-12] MEDS: FUROSEMIDE 10 MG/ML 2 ML VIAL IV SCH ×2 (12:03→21:07)
[2018-11-12 12:46] LABS: Glucose,Whole Blood 389 mg/dL (75-99)
--- NOTE | 2018-11-12 13:13 | P.PN ---
Subjective Progress Note Date: 11/12/18 This 83-year-old gentleman with history of coronary artery disease with a history of previous stent placement, hypertension, dyslipidemia, diabetes mellitus and also ischemic cardiomyopathy. Patient was admitted with a Marcin infarct. Patient was having intermittent and paroxysmal atrial fibrillation. Patient was started on IV amiodarone yesterday. His blood pressure was high in the morning but subsequently came down. Patient is back in sinus rhythm. His creatinine is improving. Patient seemed developed and responding well. Patient still has a Lamas catheter. Overall his patient seemed much more stable. We'll start him on by mouth amiodarone. Patient is also on anticoagulation therapy. Patient may need physical therapy. 11/12/2018: This 83-year-old gentleman with history of ischemic heart disease, hypertension, dyslipidemia and also cardiomyopathy was admitted with leg Stokes infarct. Patient also had a renal failure. He was having intermittent atrial fibrillation. It appears that patient converted to sinus rhythm before giving any amiodarone. He has been maintaining sinus rhythm. His urine output is good. His creatinine is in the 1 the range of 1.6. His blood pressures. He is fluctuating between 150-180. Hydralazine dose was increased to 50 mg by mouth 3 times a day. Patient denies any chest pain or shortness of breath. We' ll continue current medical therapy. Nephrology suggested that, Cozaar could be added, If renal function remains stable Objective - Vital Signs Vital signs: Vital Signs Temp 97.5 F L 11/12/18 09:00 Pulse 61 11/12/18 09:00 Resp 20 11/12/18 09:00 BP 181/73 11/12/18 09:00 Pulse Ox 93 L 11/12/18 09:00 Intake & Output 11/11/18 11/12/18 11/12/18 18:59 06:59 18:59 Intake Total 462 10 Output Total 800 1200 Balance -338 -1190 Weight 92.7 kg Intake: IV 10 0.9 10 Oral 462 Output: Urine 800 1200 Other: Voiding Method Indwelling Catheter Indwelling Catheter Indwelling Catheter - Exam GENERAL EXAM: Patient is alert and doesn't appear to be in any acute distress HEENT: Normocephalic. Normal reaction of pupils, equal size, normal range of extraocular motion. No erythema or exudates in the throat. NECK: No masses, no nuchal rigidity. CHEST: No chest wall deformity. LUNGS: Equal air entry with no crackles or wheeze. HEART: S1 and S2 normal with no audible mumurs or gallops. Regular rhythm, femorals equal on both sides.. ABDOMEN: No hepatosplenomegaly, normal bowel sounds, no guarding or rigidity. SKIN: No rashes CENTRAL NERVOUS SYSTEM: As per neurology EXTREMITIES: No cyanosis, clubbing or edema. - Labs CBC & Chem 7: 11/12/18 06:02 11/12/18 06:02 Labs: Abnormal Lab Results - Last 24 Hours (Table) 11/11/18 11/11/18 11/12/18 Range/Units 16:39 20:32 06:02 RBC 3.87 L (4.30-5.90) m/uL Hgb 12.3 L (13.0-17.5) gm/dL MCV 103.1 H (80.0-100.0) fL MCHC 30.8 L (31.0-37.0) g/dL Chloride (98-107) mmol/L Carbon Dioxide (22-30) mmol/L Creatinine (0.66-1.25) mg/dL Glucose (74-99) mg/dL POC Glucose (mg/dL) 267 H 280 H (75-99) mg/dL AST (17-59) U/L Alkaline Phosphatase (38-126) U/L Total Protein (6.3-8.2) g/dL Albumin (3.5-5.0) g/dL 11/12/18 11/12/18 11/12/18 Range/Units 06:02 06:13 12:16 RBC (4.30-5.90) m/uL Hgb (13.0-17.5) gm/dL MCV (80.0-100.0) fL MCHC (31.0-37.0) g/dL Chloride 114 H (98-107) mmol/L Carbon Dioxide 19 L (22-30) mmol/L Creatinine 1.60 H (0.66-1.25) mg/dL Glucose 224 H (74-99) mg/dL POC Glucose (mg/dL) 233 H 389 H (75-99) mg/dL AST 61 H (17-59) U/L Alkaline Phosphatase 130 H (38-126) U/L Total Protein 5.8 L (6.3-8.2) g/dL Albumin 2.9 L (3.5-5.0) g/dL Assessment and Plan (1) Paroxysmal atrial fibrillation Current Visit: Yes Status: Acute Code(s): I48.0 - PAROXYSMAL ATRIAL FIBRILLATION SNOMED Code(s): 704431994 (2) CAD (coronary artery disease) Current Visit: Yes Status: Acute Code(s): I25.10 - ATHSCL HEART DISEASE OF [place] CORONARY ARTERY W/O ANG PCTRS SNOMED Code(s): 70383124 (3) Lacunar infarct, acute Current Visit: Yes Status: Acute Code(s): I63.81 - OTHER CEREB INFRC DUE TO OCCLS OR STENOSIS OF SMALL ARTERY SNOMED Code(s): 992994342 (4) Acute renal failure (ARF) Current Visit: Yes Status: Acute Code(s): N17.9 - ACUTE KIDNEY FAILURE, UNSPECIFIED SNOMED Code(s): 02979591 Plan: Continue current medical therapy. Follow renal functions. If creatinine is stable, may add Cozaar
[2018-11-12 17:30] LABS: Glucose,Whole Blood 399 mg/dL (75-99)
[2018-11-12] MEDS: TEMAZEPAM 15 MG CAP PO SCH (21:06)
[2018-11-12] MEDS: LORazepam 1 MG TAB PO PRN (21:06)
[2018-11-12] MEDS: ATORVASTATIN 40 MG TAB PO SCH (21:07)
[2018-11-12] MEDS: risperiDONE 1 MG TAB PO SCH (21:08)
[2018-11-12 21:52] LABS: Glucose,Whole Blood 289 mg/dL (75-99)
--- NOTE | 2018-11-13 02:48 | P.PN ---
Subjective Progress Note Date: 11/12/18 Principal diagnosis: Acute lacunar infarct right posterior parietal lobe with generalized weakness and falls, new onset atrial fibrillation, near syncope, 50% stenosis of internal carotid artery, chronic renal failure stage 3-4, hyperkalemia, chronic back pain, history of coronary artery disease status post stent, history of thyroid cancer, hypertension hypertensive cardiovascular disease, 11/12/2018, patient seen eval reexamined during the rounds clinically patient has been doing better without continued to have issues associated with labile blood pressure, the amiodarone drip has been discontinued, antihypertensive agents are being adjusted, patient is being followed by neurology cardiovascular services as well as pulmonary services, no new intervention has been recommended for subsegmental atelectasis except deep breathing sense incentive spirometry This is a 83-year-old male patient of Dr. Joseph. Patient presented to the emergency room complaining of multiple falls that has been occurring over the past 2 days. She denies tripping. Per patient fell out of bed. Patient also states he is having chest pain. Patient does follow with cardiology services. Patient does appear to be a poor historian. Family is at bedside. She doesn't past medical history of diabetes mellitus, GERD, hyperlipidemia, hypertension, myocardial infarction, pneumonia, sleep apnea and thyroid answer. patient also states he has history of heart cath with stents. Last heart cath was in 2013. Chest x-ray completed showing elevated right pepito-diaphragm neck with right basilar consolidation which may be related to atelectasis rather than pneumonia correlate clinically for confirmation. Cardiomegaly. CT of head completed showing degenerative and nonspecific white matter changes most typical remote ischemia. EKG completed showing sinus bradycardia with heart rate 58. Creatinine 2.45 and bun 41 potassium also elevated at 5.2. Objective - Vital Signs Vital signs: Vital Signs Temp 98.2 F 11/13/18 00:00 Pulse 56 L 11/13/18 00:00 Resp 16 11/13/18 00:00 BP 161/78 11/13/18 00:00 Pulse Ox 97 11/13/18 00:00 Intake & Output 11/12/18 11/12/18 11/13/18 06:59 18:59 06:59 Intake Total 10 200 145 Output Total 1200 675 Balance -1190 200 -530 Weight 92.7 kg Intake: IV 10 20 0.9 10 20 Oral 200 125 Output: Urine 1200 675 Other: Voiding Method Indwelling Catheter Indwelling Catheter Indwelling Catheter - Constitutional General appearance: Present: average body habitus, cooperative, disheveled, mild distress, obese - EENT Eyes: Present: normal appearance ENT: Present: normal oropharynx Ears: bilateral: normal - Neck Carotids: bilateral: upstroke normal Thyroid: bilateral: normal size - Respiratory Respiratory: bilateral: CTA - Cardiovascular Heart sounds: normal: S1, S2 - Gastrointestinal General gastrointestinal: Present: decreased bowel sounds, soft - Neurologic Neurologic: Present: CNII-XII intact - Musculoskeletal Musculoskeletal: Present: generalized weakness - Psychiatric Psychiatric: Present: A&O x's 3, appropriate affect, intact judgment & insight - Labs CBC & Chem 7: 11/12/18 06:02 11/12/18 06:02 Labs: Abnormal Lab Results - Last 24 Hours (Table) 11/12/18 11/12/18 11/12/18 Range/Units 06:02 06:02 06:13 RBC 3.87 L (4.30-5.90) m/uL Hgb 12.3 L (13.0-17.5) gm/dL MCV 103.1 H (80.0-100.0) fL MCHC 30.8 L (31.0-37.0) g/dL Chloride 114 H (98-107) mmol/L Carbon Dioxide 19 L (22-30) mmol/L Creatinine 1.60 H (0.66-1.25) mg/dL Glucose 224 H (74-99) mg/dL POC Glucose (mg/dL) 233 H (75-99) mg/dL AST 61 H (17-59) U/L Alkaline Phosphatase 130 H (38-126) U/L Total Protein 5.8 L (6.3-8.2) g/dL Albumin 2.9 L (3.5-5.0) g/dL 11/12/18 11/12/18 11/12/18 Range/Units 12:16 17:29 21:51 RBC (4.30-5.90) m/uL Hgb (13.0-17.5) gm/dL MCV (80.0-100.0) fL MCHC (31.0-37.0) g/dL Chloride (98-107) mmol/L Carbon Dioxide (22-30) mmol/L Creatinine (0.66-1.25) mg/dL Glucose (74-99) mg/dL POC Glucose (mg/dL) 389 H 399 H 289 H (75-99) mg/dL AST (17-59) U/L Alkaline Phosphatase (38-126) U/L Total Protein (6.3-8.2) g/dL Albumin (3.5-5.0) g/dL Assessment and Plan Assessment: Right posterior parietal lacunar infarct Near syncope related to above New-onset atrial fibrillation Generalized weakness and medical debility Frequent falls Hypertension hypertensive cardiovascular disease Labile blood pressure/uncontrolled blood pressure hypertension Plan: Fall precautions Patient has bilateral carotid borderline stenosis will be monitored and observed Monitor renal functions closely Continue home medications Adjustment of antihypertensive agent Patient will likely require placement in extended care facility and rehab evaluation Enterococcus UTIs being treated with IV Rocephin Time with Patient: Greater than 30
[2018-11-13 06:07] LABS: Glucose,Whole Blood 212 mg/dL (75-99)
[2018-11-13] MEDS: LEVOTHYROXINE 88 MCG TAB PO SCH (06:38)
[2018-11-13] MEDS: INSULIN ASPART 100 UNIT/ML 1 ML 10 ML VIAL SQ SCH ×4 (06:38→21:37)
[2018-11-13] MEDS: PANTOPRAZOLE 40 MG TABLET PO SCH (06:38)
[2018-11-13 06:55] LABS: Basophils % (A) 1 %; Eosinophils # (A) 0.4 k/uL (0-0.7); Eosinophils % (A) 5 %; HCT 36.6 % (39.0-53.0); HGB 11.7 gm/dL (13.0-17.5); Lymphocytes # (A) 1.1 k/uL (1.0-4.8); Lymphocytes % (A) 14 %; MCH 31.7 pg (25.0-35.0); MCV 99.1 fL (80.0-100.0); Mean Platelet Volume 7.2; Monocytes # (A) 0.6 k/uL (0-1.0); Monocytes % (A) 7 %; Neutrophils # (A) 5.8 k/uL (1.3-7.7); Neutrophils % (A) 72 %; Platelet Count 210 k/uL (150-450); RDW 13.8 % (11.5-15.5); WBC 8.1 k/uL (3.8-10.6)
[2018-11-13 07:11] LABS: Albumin 2.6 g/dL (3.5-5.0); Calcium 9.4 mg/dL (8.4-10.2); Potassium 3.5 mmol/L (3.5-5.1); Total Bilirubin 0.4 mg/dL (0.2-1.3); Total Protein 5.2 g/dL (6.3-8.2)
[2018-11-13] MEDS: FUROSEMIDE 10 MG/ML 2 ML VIAL IV SCH (08:13)
[2018-11-13] MEDS: APIXABAN 2.5 MG TABLET PO SCH ×2 (08:13→20:10)
[2018-11-13] MEDS: VIT A,C & E-LUTEIN-MINERALS 1 EACH TAB PO SCH ×2 (08:13→20:10)
[2018-11-13] MEDS: cycloSPORINE 0.05% OPHTH 0.4 ML DROPERETTE BOTH EYES SCH ×2 (08:13→20:11)
[2018-11-13] MEDS: amLODIPine 10 MG TAB PO SCH (08:14)
[2018-11-13] MEDS: ATENOLOL 25 MG TAB PO SCH ×2 (08:14→20:10)
[2018-11-13] MEDS: LORATADINE 10 MG TAB PO SCH (08:14)
[2018-11-13] MEDS: CYANOCOBALAMIN 500 MCG TAB PO SCH (08:14)
[2018-11-13] MEDS: TAMSULOSIN 0.4 MG CAP.ER.24H PO SCH ×2 (08:14→20:11)
[2018-11-13] MEDS: risperiDONE 1 MG TAB PO SCH ×2 (08:14→20:10)
[2018-11-13] MEDS: hydrALAZINE HCL 50 MG TAB PO SCH ×3 (08:14→21:36)
[2018-11-13] MEDS: ASPIRIN 81 MG PO SCH (08:14)
[2018-11-13] MEDS: DOCUSATE 100 MG CAP PO SCH ×2 (08:14→20:10)
[2018-11-13] MEDS: AMOXICILLIN 500 MG CAP PO SCH ×2 (09:25→18:02)
[2018-11-13] MEDS: CITALOPRAM HYDROBROMIDE 20 MG TAB PO SCH ×2 (09:25→18:01)
--- NOTE | 2018-11-13 10:01 | P.PN ---
Progress Note - Text Patient is sitting comfortably in bed. No chest pain no dizziness no lightheadedness He suffered a lacunar infarct. He has documented paroxysmal atrial fibrillation and was treated with IV amiodarone initially. Amiodarone is now discontinued both IV and by mouth. He is on ELIQUIS Afebrile 96.7F, pulse rate in the 60s, blood pressure 181/78 and 159/86 mmHg Breath sounds are clear no rhonchi no crackles Heart sounds. Normal Abdomen soft Extremities are warm Impression 83-year-old male patient with Paroxysmal atrial fibrillation, on oral ELIQUIS. GFR 35 Hypertension Suggest Consider increasing hydralazine to 100 mg 3 times a day if blood pressure is persistently elevated
[2018-11-13] MEDS ORDERED: POTASSIUM CHLORIDE ER 20 MEQ TAB.ER PO STA (10:59)
--- NOTE | 2018-11-13 10:59 | P.PN ---
Subjective Patient is seen in follow-up for acute kidney injury on chronic kidney disease. Patient has chronic kidney disease stage III with baseline creatinine in the range of 1.3-1.5 secondary to nephrosclerosis. Renal function is a little worse today with creatinine at 1.78. Patient has a Lamas catheter for urinary retention. Oral intake is fair. No vomiting or diarrhea. Denies chest pain or shortness of breath. Blood pressures remain on the higher side. Vital signs are stable. General: The patient appeared well nourished and normally developed. HEENT: Head exam is unremarkable. Neck is without jugular venous distension. LUNGS: Lungs are clear to auscultation and percussion. Breath sounds decreased. HEART: Rate and Rhythm are regular. First and second heart sounds normal. No murmurs, rubs or gallops. ABDOMEN: Abdominal exam reveals normal bowel sounds. Non-tender and non- distended. No evidence of peritonitis. EXTREMITITES: No clubbing, cyanosis, or edema. Objective - Vital Signs Vital signs: Vital Signs Temp 96.7 F L 11/13/18 07:50 Pulse 61 11/13/18 07:50 Resp 20 11/13/18 07:50 BP 181/78 11/13/18 07:50 Pulse Ox 94 L 11/13/18 07:50 Intake & Output 11/12/18 11/13/18 11/13/18 18:59 06:59 18:59 Intake Total 200 145 125 Output Total 1525 Balance 200 -1380 125 Intake: IV 20 0.9 20 Oral 200 125 125 Output: Urine 1525 Other: Voiding Method Indwelling Catheter Indwelling Catheter Indwelling Catheter - Labs CBC & Chem 7: 11/13/18 06:16 11/13/18 06:16 Labs: Abnormal Lab Results - Last 24 Hours (Table) 11/12/18 11/12/18 11/12/18 Range/Units 12:16 17:29 21:51 RBC (4.30-5.90) m/uL Hgb (13.0-17.5) gm/dL Hct (39.0-53.0) % Chloride (98-107) mmol/L BUN (9-20) mg/dL Creatinine (0.66-1.25) mg/dL Glucose (74-99) mg/dL POC Glucose (mg/dL) 389 H 399 H 289 H (75-99) mg/dL Alkaline Phosphatase (38-126) U/L Total Protein (6.3-8.2) g/dL Albumin (3.5-5.0) g/dL 11/13/18 11/13/18 11/13/18 Range/Units 06:06 06:16 06:16 RBC 3.70 L (4.30-5.90) m/uL Hgb 11.7 L (13.0-17.5) gm/dL Hct 36.6 L (39.0-53.0) % Chloride 111 H (98-107) mmol/L BUN 25 H (9-20) mg/dL Creatinine 1.78 H (0.66-1.25) mg/dL Glucose 215 H (74-99) mg/dL POC Glucose (mg/dL) 212 H (75-99) mg/dL Alkaline Phosphatase 143 H (38-126) U/L Total Protein 5.2 L (6.3-8.2) g/dL Albumin 2.6 L (3.5-5.0) g/dL Assessment and Plan Plan: Assessment: 1. Acute kidney injury secondary to urinary retention. Also component of diuresis. Creatinine 1.78 today. 2. Chronic kidney disease stage III with basic creatinine in the range of 1.3- 1.5 secondary to sclerosis. 3. Status post CVA. 4. Hypertension with chronic kidney disease. Blood pressure still high. 5. Metabolic acidosis secondary to acute kidney injury. Better. 6. Urinary retention status post Lamas catheter placement. 7. Hypokalemia from diuresis. Rule out magnesium deficiency. 8. UTI with urine culture positive for enterococcus maintained on antibiotics. Plan: Discontinue Lasix. Increase hydralazine to 100 mg 3 times daily. Replace potassium. 40 mEq today. Check magnesium level. Repeat electrolytes in the morning.
[2018-11-13 11:53] LABS: Glucose,Whole Blood 413 mg/dL (75-99)
[2018-11-13] MEDS ORDERED: INSULIN ASPART 100 UNIT/ML 1 ML 10 ML VIAL SQ ONE (12:06)
--- NOTE | 2018-11-13 15:06 | P.PN ---
Subjective Progress Note Date: 11/13/18 Principal diagnosis: Acute lacunar infarct right posterior parietal lobe with generalized weakness and falls, new onset atrial fibrillation, near syncope, 50% stenosis of internal carotid artery, chronic renal failure stage 3-4, hyperkalemia, chronic back pain, history of coronary artery disease status post stent, history of thyroid cancer, hypertension hypertensive cardiovascular disease, # 2018, patient seen eval reexamined during the rounds, labs reviewed medications reviewed renal functions and slightly more compromised today, patient does have a Lamas's catheter, renal services has been following this patient along with cardiovascular services as well, blood pressure slightly elevated but hemodynamics status overall has been stable, for chronic atrial fibrillation patient has been on anticoagulation tolerating very well 11/12/2018, patient seen eval reexamined during the rounds clinically patient has been doing better without continued to have issues associated with labile blood pressure, the amiodarone drip has been discontinued, antihypertensive agents are being adjusted, patient is being followed by neurology cardiovascular services as well as pulmonary services, no new intervention has been recommended for subsegmental atelectasis except deep breathing sense incentive spirometry This is a 83-year-old male patient of Dr. Joseph. Patient presented to the emergency room complaining of multiple falls that has been occurring over the past 2 days. She denies tripping. Per patient fell out of bed. Patient also states he is having chest pain. Patient does follow with cardiology services. Patient does appear to be a poor historian. Family is at bedside. She doesn't past medical history of diabetes mellitus, GERD, hyperlipidemia, hypertension, myocardial infarction, pneumonia, sleep apnea and thyroid answer. patient also states he has history of heart cath with stents. Last heart cath was in 2013. Chest x-ray completed showing elevated right pepito-diaphragm neck with right basilar consolidation which may be related to atelectasis rather than pneumonia correlate clinically for confirmation. Cardiomegaly. CT of head completed showing degenerative and nonspecific white matter changes most typical remote ischemia. EKG completed showing sinus bradycardia with heart rate 58. Creatinine 2.45 and bun 41 potassium also elevated at 5.2. Objective - Vital Signs Vital signs: Vital Signs Temp 96.2 F L 11/13/18 12:00 Pulse 53 L 11/13/18 12:00 Resp 22 11/13/18 12:00 BP 158/71 12/26/18 12:00 Pulse Ox 94 L 11/13/18 12:00 Intake & Output 11/12/18 11/13/18 11/13/18 18:59 06:59 18:59 Intake Total 200 145 225 Output Total 1525 Balance 200 -1380 225 Intake: IV 20 0.9 20 Oral 200 125 225 Output: Urine 1525 Other: Voiding Method Indwelling Catheter Indwelling Catheter Indwelling Catheter - Exam Constitutional General appearance: Present: average body habitus, cooperative, disheveled, mild distress, obese - EENT Eyes: Present: normal appearance ENT: Present: normal oropharynx Ears: bilateral: normal - Neck Carotids: bilateral: upstroke normal Thyroid: bilateral: normal size - Respiratory Respiratory: bilateral: CTA - Cardiovascular Heart sounds: normal: S1, S2 - Gastrointestinal General gastrointestinal: Present: decreased bowel sounds, soft - Neurologic Neurologic: Present: CNII-XII intact - Musculoskeletal Musculoskeletal: Present: generalized weakness - Psychiatric Psychiatric: Present: A&O x's 3, appropriate affect, intact judgment & insight - Labs CBC & Chem 7: 11/13/18 06:16 11/13/18 06:16 Labs: Abnormal Lab Results - Last 24 Hours (Table) 11/12/18 11/12/18 11/13/18 Range/Units 17:29 21:51 06:06 RBC (4.30-5.90) m/uL Hgb (13.0-17.5) gm/dL Hct (39.0-53.0) % Chloride (98-107) mmol/L BUN (9-20) mg/dL Creatinine (0.66-1.25) mg/dL Glucose (74-99) mg/dL POC Glucose (mg/dL) 399 H 289 H 212 H (75-99) mg/dL Alkaline Phosphatase (38-126) U/L Total Protein (6.3-8.2) g/dL Albumin (3.5-5.0) g/dL 11/13/18 11/13/18 11/13/18 Range/Units 06:16 06:16 11:41 RBC 3.70 L (4.30-5.90) m/uL Hgb 11.7 L (13.0-17.5) gm/dL Hct 36.6 L (39.0-53.0) % Chloride 111 H (98-107) mmol/L BUN 25 H (9-20) mg/dL Creatinine 1.78 H (0.66-1.25) mg/dL Glucose 215 H (74-99) mg/dL POC Glucose (mg/dL) 413 H (75-99) mg/dL Alkaline Phosphatase 143 H (38-126) U/L Total Protein 5.2 L (6.3-8.2) g/dL Albumin 2.6 L (3.5-5.0) g/dL Assessment and Plan Assessment: Right posterior parietal lacunar infarct Near syncope related to above Enterococcus UTIs being treated with IV Rocephin New-onset atrial fibrillation Generalized weakness and medical debility Frequent falls Hypertension hypertensive cardiovascular disease Labile blood pressure/uncontrolled blood pressure hypertension Plan: Fall precautions Patient has bilateral carotid borderline stenosis will be monitored and observed Monitor renal functions closely Continue home medications Adjustment of antihypertensive agent Patient will likely require placement in extended care facility and rehab evaluation Enterococcus UTIs being treated with IV Rocephin Time with Patient: Greater than 30
[2018-11-13 16:26] LABS: Glucose,Whole Blood 300 mg/dL (75-99)
[2018-11-13] MEDS: ATORVASTATIN 40 MG TAB PO SCH (20:10)
[2018-11-13] MEDS: TEMAZEPAM 15 MG CAP PO SCH (20:11)
[2018-11-13 21:09] LABS: Glucose,Whole Blood 355 mg/dL (75-99)
[2018-11-14] MEDS: AMOXICILLIN 500 MG CAP PO SCH ×4 (01:43→23:48)
[2018-11-14 05:28] LABS: Glucose,Whole Blood 255 mg/dL (75-99)
[2018-11-14] MEDS: LEVOTHYROXINE 88 MCG TAB PO SCH (06:54)
[2018-11-14] MEDS: PANTOPRAZOLE 40 MG TABLET PO SCH (06:54)
[2018-11-14] MEDS: INSULIN ASPART 100 UNIT/ML 1 ML 10 ML VIAL SQ SCH ×4 (06:55→20:27)
[2018-11-14 07:10] LABS: Basophils # (A) 0.1 k/uL (0-0.2); Basophils % (A) 1 %; Eosinophils # (A) 0.4 k/uL (0-0.7); Eosinophils % (A) 5 %; HCT 35.4 % (39.0-53.0); HGB 11.4 gm/dL (13.0-17.5); Lymphocytes # (A) 1.4 k/uL (1.0-4.8); Lymphocytes % (A) 19 %; MCH 32.1 pg (25.0-35.0); MCHC 32.2 g/dL (31.0-37.0); MCV 99.7 fL (80.0-100.0); Mean Platelet Volume 7.3; Monocytes # (A) 0.5 k/uL (0-1.0); Monocytes % (A) 8 %; Neutrophils # (A) 4.7 k/uL (1.3-7.7); Neutrophils % (A) 65 %; Platelet Count 217 k/uL (150-450); RBC 3.56 m/uL (4.30-5.90); RDW 13.7 % (11.5-15.5); WBC 7.3 k/uL (3.8-10.6)
[2018-11-14 07:19] LABS: Albumin 2.5 g/dL (3.5-5.0); Calcium 8.9 mg/dL (8.4-10.2); Magnesium 1.5 mg/dL (1.6-2.3); Potassium 3.8 mmol/L (3.5-5.1); Total Bilirubin 0.3 mg/dL (0.2-1.3); Total Protein 4.9 g/dL (6.3-8.2)
[2018-11-14] MEDS: risperiDONE 1 MG TAB PO SCH ×2 (09:50→20:19)
[2018-11-14] MEDS: cycloSPORINE 0.05% OPHTH 0.4 ML DROPERETTE BOTH EYES SCH ×2 (09:50→20:19)
[2018-11-14] MEDS: APIXABAN 2.5 MG TABLET PO SCH ×2 (09:50→20:18)
[2018-11-14] MEDS: hydrALAZINE HCL 50 MG TAB PO SCH ×3 (09:51→20:20)
[2018-11-14] MEDS: ASPIRIN 81 MG PO SCH (09:51)
[2018-11-14] MEDS: CITALOPRAM HYDROBROMIDE 20 MG TAB PO SCH ×2 (09:51→18:08)
[2018-11-14] MEDS: TAMSULOSIN 0.4 MG CAP.ER.24H PO SCH ×2 (09:51→20:20)
[2018-11-14] MEDS: ATENOLOL 25 MG TAB PO SCH ×2 (09:51→20:18)
[2018-11-14] MEDS: DOCUSATE 100 MG CAP PO SCH ×2 (09:51→20:19)
[2018-11-14] MEDS: amLODIPine 10 MG TAB PO SCH (09:51)
[2018-11-14] MEDS: VIT A,C & E-LUTEIN-MINERALS 1 EACH TAB PO SCH ×2 (09:51→20:20)
[2018-11-14] MEDS: LORATADINE 10 MG TAB PO SCH (09:51)
[2018-11-14] MEDS: CYANOCOBALAMIN 500 MCG TAB PO SCH (09:51)
[2018-11-14] MEDS ORDERED: hydrALAZINE HCL 20 MG/ML 1 ML VIAL IVP PRN (10:27)
--- NOTE | 2018-11-14 10:30 | P.PN ---
Subjective Patient is seen in follow-up for acute kidney injury on chronic kidney disease. Patient has chronic kidney disease stage III with baseline creatinine in the range of 1.3-1.5 secondary to nephrosclerosis. Renal function worse today with creatinine at 1.93. Patient has a Lamas catheter for urinary retention. Oral intake is fair. No vomiting or diarrhea. Denies chest pain or shortness of breath. Blood pressures remain on the higher side but better compared to yesterday. Vital signs are stable. General: The patient appeared well nourished and normally developed. HEENT: Head exam is unremarkable. Neck is without jugular venous distension. LUNGS: Lungs are clear to auscultation and percussion. Breath sounds decreased. HEART: Rate and Rhythm are regular. First and second heart sounds normal. No murmurs, rubs or gallops. ABDOMEN: Abdominal exam reveals normal bowel sounds. Non-tender and non- distended. No evidence of peritonitis. EXTREMITITES: No clubbing, cyanosis, or edema. Objective - Vital Signs Vital signs: Vital Signs Temp 97.1 F L 11/14/18 08:00 Pulse 54 L 11/14/18 08:00 Resp 16 11/14/18 08:00 BP 161/72 11/14/18 08:00 Pulse Ox 92 L 11/14/18 08:00 Intake & Output 11/13/18 11/14/18 11/14/18 18:59 06:59 18:59 Intake Total 447 800 222 Output Total 200 700 Balance 247 100 222 Intake: Oral 447 800 222 Output: Urine 200 700 Other: Voiding Method Indwelling Catheter Indwelling Catheter Indwelling Catheter - Labs CBC & Chem 7: 11/14/18 06:13 11/14/18 06:13 Labs: Abnormal Lab Results - Last 24 Hours (Table) 11/13/18 11/13/18 11/13/18 Range/Units 11:41 16:23 21:07 RBC (4.30-5.90) m/uL Hgb (13.0-17.5) gm/dL Hct (39.0-53.0) % Chloride (98-107) mmol/L BUN (9-20) mg/dL Creatinine (0.66-1.25) mg/dL Glucose (74-99) mg/dL POC Glucose (mg/dL) 413 H 300 H 355 H (75-99) mg/dL Magnesium (1.6-2.3) mg/dL ALT (21-72) U/L Alkaline Phosphatase (38-126) U/L Total Protein (6.3-8.2) g/dL Albumin (3.5-5.0) g/dL 11/14/18 11/14/18 11/14/18 Range/Units 05:16 06:13 06:13 RBC 3.56 L (4.30-5.90) m/uL Hgb 11.4 L (13.0-17.5) gm/dL Hct 35.4 L (39.0-53.0) % Chloride 108 H (98-107) mmol/L BUN 31 H (9-20) mg/dL Creatinine 1.93 H (0.66-1.25) mg/dL Glucose 231 H (74-99) mg/dL POC Glucose (mg/dL) 255 H (75-99) mg/dL Magnesium 1.5 L (1.6-2.3) mg/dL ALT 75 H (21-72) U/L Alkaline Phosphatase 160 H (38-126) U/L Total Protein 4.9 L (6.3-8.2) g/dL Albumin 2.5 L (3.5-5.0) g/dL Assessment and Plan Plan: Assessment: 1. Acute kidney injury secondary to ATN secondary to volume depletion and urinary retention. Creatinine 1.93 today. 2. Chronic kidney disease stage III with basic creatinine in the range of 1.3- 1.5 secondary to diabetic kidney disease. 3. Status post CVA. 4. Hypertension with chronic kidney disease. Blood pressure better. 5. Metabolic acidosis secondary to acute kidney injury. Better. 6. Urinary retention status post Lamas catheter placement. 7. Hypokalemia from diuresis. Improved post replacement. Magnesium also on the lower side. 8. UTI with urine culture positive for enterococcus maintained on antibiotics. 9. Diabetes mellitus. 10. Proteinuria. This is likely secondary to underlying diabetic kidney disease. Will further workup outpatient. Plan: Continue to hold off on diuretics and LETICIA inhibitor/ARB for now. Maintain current antihypertensives. Replace magnesium. 2 g IV today. Discontinue Lamas catheter and monitor serial postvoid residuals. Maintain flomax.
[2018-11-14 11:48] LABS: Glucose,Whole Blood 421 mg/dL (75-99)
[2018-11-14 11:56] LABS: Glucose,Whole Blood 389 mg/dL (75-99)
[2018-11-14] MEDS: MAGNESIUM SULFATE-D5W PMX 1 GM in DEXTROSE/WATER 1 100ML.BAG IVPB SCH ×2 (13:36→15:08)
[2018-11-14 16:45] LABS: Glucose,Whole Blood 509 mg/dL (75-99)
[2018-11-14 16:47] LABS: Glucose,Whole Blood 529 mg/dL (75-99)
--- NOTE | 2018-11-14 16:55 | P.PN ---
Subjective Patient is doing well. He is resting comfortably in bed. He denies any psychotic symptoms such as chest pain or breathing trouble he does get a little dizzy when he sits up. He has paroxysmal atrial fibrillation and is on ELIQUIS now. Amiodarone was discontinued On examination his pulse rate is in the 50s blood pressure 133/63 mmHg normal respirations afebrile 97.6F Breath sounds are clear no rhonchi no crackles Heart sounds. Normal no murmurs or gallop. Abdomen soft nontender 70s warm no edema impression CVA TIA, paroxysmal atrial fibrillation now appropriate be anticoagulated Suggest Continue current medications without any changes and we'll see him on a when necessary basis the Objective - Vital Signs Vital signs: Vital Signs Temp 97.3 F L 11/14/18 15:34 Pulse 53 L 11/14/18 15:34 Resp 16 11/14/18 15:34 BP 153/69 11/14/18 15:34 Pulse Ox 94 L 11/14/18 15:34 Intake & Output 11/13/18 11/14/18 11/14/18 18:59 06:59 18:59 Intake Total 447 800 222 Output Total 200 700 400 Balance 247 100 -178 Intake: Oral 447 800 222 Output: Urine 200 700 400 Uretheral (Lamas) 200 Other: Voiding Method Indwelling Catheter Indwelling Catheter Urinal - Labs CBC & Chem 7: 11/14/18 06:13 11/14/18 06:13 Labs: Abnormal Lab Results - Last 24 Hours (Table) 11/13/18 11/14/18 11/14/18 Range/Units 21:07 05:16 06:13 RBC 3.56 L (4.30-5.90) m/uL Hgb 11.4 L (13.0-17.5) gm/dL Hct 35.4 L (39.0-53.0) % Chloride (98-107) mmol/L BUN (9-20) mg/dL Creatinine (0.66-1.25) mg/dL Glucose (74-99) mg/dL POC Glucose (mg/dL) 355 H 255 H (75-99) mg/dL Magnesium (1.6-2.3) mg/dL ALT (21-72) U/L Alkaline Phosphatase (38-126) U/L Total Protein (6.3-8.2) g/dL Albumin (3.5-5.0) g/dL 11/14/18 11/14/18 11/14/18 Range/Units 06:13 11:46 11:54 RBC (4.30-5.90) m/uL Hgb (13.0-17.5) gm/dL Hct (39.0-53.0) % Chloride 108 H (98-107) mmol/L BUN 31 H (9-20) mg/dL Creatinine 1.93 H (0.66-1.25) mg/dL Glucose 231 H (74-99) mg/dL POC Glucose (mg/dL) 421 H 389 H (75-99) mg/dL Magnesium 1.5 L (1.6-2.3) mg/dL ALT 75 H (21-72) U/L Alkaline Phosphatase 160 H (38-126) U/L Total Protein 4.9 L (6.3-8.2) g/dL Albumin 2.5 L (3.5-5.0) g/dL 11/14/18 11/14/18 Range/Units 16:41 16:45 RBC (4.30-5.90) m/uL Hgb (13.0-17.5) gm/dL Hct (39.0-53.0) % Chloride (98-107) mmol/L BUN (9-20) mg/dL Creatinine (0.66-1.25) mg/dL Glucose (74-99) mg/dL POC Glucose (mg/dL) 509 H 529 H (75-99) mg/dL Magnesium (1.6-2.3) mg/dL ALT (21-72) U/L Alkaline Phosphatase (38-126) U/L Total Protein (6.3-8.2) g/dL Albumin (3.5-5.0) g/dL
--- NOTE | 2018-11-14 19:13 | P.PN ---
Subjective Progress Note Date: 11/14/18 Principal diagnosis: Acute lacunar infarct right posterior parietal lobe with generalized weakness and falls, new onset atrial fibrillation, near syncope, 50% stenosis of internal carotid artery, chronic renal failure stage 3-4, hyperkalemia, chronic back pain, history of coronary artery disease status post stent, history of thyroid cancer, hypertension hypertensive cardiovascular disease, 11/14/2018, patient seen eval reexamined during the rounds clinically patient has been doing well awake and alert breathing cuff today no obvious distress is present, patient sugar however becomes the and remains fluctuating, patient has been found to be hypomagnesemic has been getting replacement therapy sugar went up to 551 rate appears to be after 200 mL of D5 given with magnesium supplement , will repeat the sugar levels again, patient will benefit from Lantus at bedtime November 13 2018, patient seen eval reexamined during the rounds, labs reviewed medications reviewed renal functions and slightly more compromised today, patient does have a Lamas's catheter, renal services has been following this patient along with cardiovascular services as well, blood pressure slightly elevated but hemodynamics status overall has been stable, for chronic atrial fibrillation patient has been on anticoagulation tolerating very well 11/12/2018, patient seen eval reexamined during the rounds clinically patient has been doing better without continued to have issues associated with labile blood pressure, the amiodarone drip has been discontinued, antihypertensive agents are being adjusted, patient is being followed by neurology cardiovascular services as well as pulmonary services, no new intervention has been recommended for subsegmental atelectasis except deep breathing sense incentive spirometry This is a 83-year-old male patient of Dr. Joseph. Patient presented to the emergency room complaining of multiple falls that has been occurring over the past 2 days. She denies tripping. Per patient fell out of bed. Patient also states he is having chest pain. Patient does follow with cardiology services. Patient does appear to be a poor historian. Family is at bedside. She doesn't past medical history of diabetes mellitus, GERD, hyperlipidemia, hypertension, myocardial infarction, pneumonia, sleep apnea and thyroid answer. patient also states he has history of heart cath with stents. Last heart cath was in 2013. Chest x-ray completed showing elevated right pepito-diaphragm neck with right basilar consolidation which may be related to atelectasis rather than pneumonia correlate clinically for confirmation. Cardiomegaly. CT of head completed showing degenerative and nonspecific white matter changes most typical remote ischemia. EKG completed showing sinus bradycardia with heart rate 58. Creatinine 2.45 and bun 41 potassium also elevated at 5.2. Objective - Vital Signs Vital signs: Vital Signs Temp 97.3 F L 11/14/18 15:34 Pulse 53 L 11/14/18 15:34 Resp 16 11/14/18 15:34 BP 153/69 11/14/18 15:34 Pulse Ox 94 L 11/14/18 15:34 Intake & Output 11/14/18 11/14/18 11/15/18 06:59 18:59 06:59 Intake Total 800 222 Output Total 700 550 Balance 100 -328 Intake: Oral 800 222 Output: Urine 700 550 Uretheral (Lamas) 200 Other: Voiding Method Indwelling Catheter Urinal # Voids 1 # Bowel Movements 0 - Exam Constitutional General appearance: Present: average body habitus, cooperative, disheveled, mild distress, obese - EENT Eyes: Present: normal appearance ENT: Present: normal oropharynx Ears: bilateral: normal - Neck Carotids: bilateral: upstroke normal Thyroid: bilateral: normal size - Respiratory Respiratory: bilateral: CTA - Cardiovascular Heart sounds: normal: S1, S2 - Gastrointestinal General gastrointestinal: Present: decreased bowel sounds, soft - Neurologic Neurologic: Present: CNII-XII intact - Musculoskeletal Musculoskeletal: Present: generalized weakness - Psychiatric Psychiatric: Present: A&O x's 3, appropriate affect, intact judgment & insight - Labs CBC & Chem 7: 11/14/18 06:13 11/14/18 16:54 Labs: Abnormal Lab Results - Last 24 Hours (Table) 11/13/18 11/14/18 11/14/18 Range/Units 21:07 05:16 06:13 RBC 3.56 L (4.30-5.90) m/uL Hgb 11.4 L (13.0-17.5) gm/dL Hct 35.4 L (39.0-53.0) % Chloride (98-107) mmol/L BUN (9-20) mg/dL Creatinine (0.66-1.25) mg/dL Glucose (74-99) mg/dL POC Glucose (mg/dL) 355 H 255 H (75-99) mg/dL Magnesium (1.6-2.3) mg/dL ALT (21-72) U/L Alkaline Phosphatase (38-126) U/L Total Protein (6.3-8.2) g/dL Albumin (3.5-5.0) g/dL 11/14/18 11/14/18 11/14/18 Range/Units 06:13 11:46 11:54 RBC (4.30-5.90) m/uL Hgb (13.0-17.5) gm/dL Hct (39.0-53.0) % Chloride 108 H (98-107) mmol/L BUN 31 H (9-20) mg/dL Creatinine 1.93 H (0.66-1.25) mg/dL Glucose 231 H (74-99) mg/dL POC Glucose (mg/dL) 421 H 389 H (75-99) mg/dL Magnesium 1.5 L (1.6-2.3) mg/dL ALT 75 H (21-72) U/L Alkaline Phosphatase 160 H (38-126) U/L Total Protein 4.9 L (6.3-8.2) g/dL Albumin 2.5 L (3.5-5.0) g/dL 11/14/18 11/14/18 11/14/18 Range/Units 16:41 16:45 16:54 RBC (4.30-5.90) m/uL Hgb (13.0-17.5) gm/dL Hct (39.0-53.0) % Chloride (98-107) mmol/L BUN (9-20) mg/dL Creatinine (0.66-1.25) mg/dL Glucose 551 H* (74-99) mg/dL POC Glucose (mg/dL) 509 H 529 H (75-99) mg/dL Magnesium (1.6-2.3) mg/dL ALT (21-72) U/L Alkaline Phosphatase (38-126) U/L Total Protein (6.3-8.2) g/dL Albumin (3.5-5.0) g/dL Assessment and Plan Assessment: Uncontrolled diabetes and hyperglycemia Right posterior parietal lacunar infarct Near syncope related to above Enterococcus UTIs being treated with IV Rocephin New-onset atrial fibrillation Generalized weakness and medical debility Frequent falls Hypertension hypertensive cardiovascular disease Labile blood pressure/uncontrolled blood pressure hypertension Plan: Add Lantus 15 units at bedtime Fall precautions Patient has bilateral carotid borderline stenosis will be monitored and observed Monitor renal functions closely Continue home medications Adjustment of antihypertensive agent Patient will likely require placement in extended care facility and rehab evaluation Enterococcus UTIs being treated with IV Rocephin Time with Patient: Greater than 30
[2018-11-14 19:46] LABS: Glucose,Whole Blood 469 mg/dL (75-99)
[2018-11-14] MEDS: ATORVASTATIN 40 MG TAB PO SCH (20:18)
[2018-11-14] MEDS: TEMAZEPAM 15 MG CAP PO SCH (20:19)
[2018-11-14 20:59] LABS: Glucose,Whole Blood 395 mg/dL (75-99)
[2018-11-14] MEDS ORDERED: INSULIN DETEMIR 100 UNIT/ML 10 ML VIAL SQ SCH (21:00)
[2018-11-15 06:06] LABS: Glucose,Whole Blood 230 mg/dL (75-99)
[2018-11-15] MEDS: LEVOTHYROXINE 88 MCG TAB PO SCH (06:19)
[2018-11-15] MEDS: PANTOPRAZOLE 40 MG TABLET PO SCH (06:19)
[2018-11-15] MEDS: INSULIN ASPART 100 UNIT/ML 1 ML 10 ML VIAL SQ SCH ×5 (06:19→21:05)
[2018-11-15 06:42] LABS: Basophils # (A) 0.1 k/uL (0-0.2); Basophils % (A) 1 %; Eosinophils # (A) 0.5 k/uL (0-0.7); Eosinophils % (A) 7 %; HCT 35.4 % (39.0-53.0); Lymphocytes # (A) 1.4 k/uL (1.0-4.8); Lymphocytes % (A) 19 %; MCH 31.2 pg (25.0-35.0); MCHC 31.2 g/dL (31.0-37.0); Mean Platelet Volume 7.1; Monocytes # (A) 0.5 k/uL (0-1.0); Monocytes % (A) 7 %; Neutrophils # (A) 4.7 k/uL (1.3-7.7); Neutrophils % (A) 65 %; Platelet Count 245 k/uL (150-450); RBC 3.54 m/uL (4.30-5.90); RDW 13.7 % (11.5-15.5); WBC 7.4 k/uL (3.8-10.6)
[2018-11-15 07:02] LABS: Albumin 2.5 g/dL (3.5-5.0); Calcium 8.7 mg/dL (8.4-10.2); Magnesium 2.3 mg/dL (1.6-2.3); Potassium 3.8 mmol/L (3.5-5.1); Total Bilirubin 0.3 mg/dL (0.2-1.3); Total Protein 4.9 g/dL (6.3-8.2)
[2018-11-15] MEDS: AMOXICILLIN 500 MG CAP PO SCH ×3 (08:18→23:17)
[2018-11-15] MEDS: VIT A,C & E-LUTEIN-MINERALS 1 EACH TAB PO SCH ×2 (08:18→21:06)
[2018-11-15] MEDS: LORATADINE 10 MG TAB PO SCH (08:18)
[2018-11-15] MEDS: CYANOCOBALAMIN 500 MCG TAB PO SCH (08:18)
[2018-11-15] MEDS: CITALOPRAM HYDROBROMIDE 20 MG TAB PO SCH ×2 (08:18→17:23)
[2018-11-15] MEDS: amLODIPine 10 MG TAB PO SCH (08:19)
[2018-11-15] MEDS: risperiDONE 1 MG TAB PO SCH ×2 (08:19→21:04)
[2018-11-15] MEDS: DOCUSATE 100 MG CAP PO SCH ×2 (08:19→21:05)
[2018-11-15] MEDS: cycloSPORINE 0.05% OPHTH 0.4 ML DROPERETTE BOTH EYES SCH ×2 (08:19→21:05)
[2018-11-15] MEDS: ATENOLOL 25 MG TAB PO SCH ×2 (08:19→21:00)
[2018-11-15] MEDS: hydrALAZINE HCL 50 MG TAB PO SCH ×3 (08:19→21:05)
[2018-11-15] MEDS: APIXABAN 2.5 MG TABLET PO SCH ×2 (08:19→21:04)
[2018-11-15] MEDS: ASPIRIN 81 MG PO SCH (08:19)
[2018-11-15] MEDS: TAMSULOSIN 0.4 MG CAP.ER.24H PO SCH ×2 (08:19→21:04)
--- NOTE | 2018-11-15 09:57 | P.PN ---
Subjective Patient is seen in follow-up for acute kidney injury on chronic kidney disease. Patient has chronic kidney disease stage III with baseline creatinine in the range of 1.3-1.5 secondary to nephrosclerosis. Renal function worse today with creatinine at 2.03. Patient had a Lamas catheter for urinary retention - it was removed yesterday and he's been voiding on his own. Oral intake is fair. No vomiting or diarrhea. Denies chest pain or shortness of breath. Blood pressure is better controlled. Heart rate is in the 50s. Atenolol was held this morning. Vital signs are stable. General: The patient appeared well nourished and normally developed. HEENT: Head exam is unremarkable. Neck is without jugular venous distension. LUNGS: Lungs are clear to auscultation and percussion. Breath sounds decreased. HEART: Rate and Rhythm are regular. First and second heart sounds normal. No murmurs, rubs or gallops. ABDOMEN: Abdominal exam reveals normal bowel sounds. Non-tender and non- distended. No evidence of peritonitis. EXTREMITITES: No clubbing, cyanosis, or edema. Objective - Vital Signs Vital signs: Vital Signs Temp 98.0 F 11/15/18 03:01 Pulse 51 L 11/15/18 03:02 Resp 16 11/15/18 03:02 BP 120/51 11/15/18 03:01 Pulse Ox 93 L 11/15/18 03:01 Intake & Output 11/14/18 11/15/18 11/15/18 18:59 06:59 18:59 Intake Total 222 200 240 Output Total 550 1250 200 Balance -328 -1050 40 Intake: Intake, IV Titration 200 Amount Magnesium Sulfate-D5w Pmx 200 1 gm In Dextrose/Water 1 100ml.bag @ 100 mls/hr IVPB Q1H ON LICENSE OF [facility] Rx#: [id number] Oral 222 240 Output: Urine 550 1250 200 Straight 500 Uretheral (Lamas) 200 Other: Voiding Method Urinal Urinal # Voids 1 1 1 # Bowel Movements 0 - Labs CBC & Chem 7: 11/15/18 06:23 11/15/18 06:23 Labs: Abnormal Lab Results - Last 24 Hours (Table) 11/14/18 11/14/18 11/14/18 Range/Units 11:46 11:54 16:41 RBC (4.30-5.90) m/uL Hgb (13.0-17.5) gm/dL Hct (39.0-53.0) % BUN (9-20) mg/dL Creatinine (0.66-1.25) mg/dL Glucose (74-99) mg/dL POC Glucose (mg/dL) 421 H 389 H 509 H (75-99) mg/dL ALT (21-72) U/L Alkaline Phosphatase (38-126) U/L Total Protein (6.3-8.2) g/dL Albumin (3.5-5.0) g/dL 11/14/18 11/14/18 11/14/18 Range/Units 16:45 16:54 19:44 RBC (4.30-5.90) m/uL Hgb (13.0-17.5) gm/dL Hct (39.0-53.0) % BUN (9-20) mg/dL Creatinine (0.66-1.25) mg/dL Glucose 551 H* (74-99) mg/dL POC Glucose (mg/dL) 529 H 469 H (75-99) mg/dL ALT (21-72) U/L Alkaline Phosphatase (38-126) U/L Total Protein (6.3-8.2) g/dL Albumin (3.5-5.0) g/dL 11/14/18 11/15/18 11/15/18 Range/Units 20:56 06:04 06:23 RBC 3.54 L (4.30-5.90) m/uL Hgb 11.0 L (13.0-17.5) gm/dL Hct 35.4 L (39.0-53.0) % BUN (9-20) mg/dL Creatinine (0.66-1.25) mg/dL Glucose (74-99) mg/dL POC Glucose (mg/dL) 395 H 230 H (75-99) mg/dL ALT (21-72) U/L Alkaline Phosphatase (38-126) U/L Total Protein (6.3-8.2) g/dL Albumin (3.5-5.0) g/dL 11/15/18 Range/Units 06:23 RBC (4.30-5.90) m/uL Hgb (13.0-17.5) gm/dL Hct (39.0-53.0) % BUN 38 H (9-20) mg/dL Creatinine 2.03 H (0.66-1.25) mg/dL Glucose 227 H (74-99) mg/dL POC Glucose (mg/dL) (75-99) mg/dL ALT 82 H (21-72) U/L Alkaline Phosphatase 169 H (38-126) U/L Total Protein 4.9 L (6.3-8.2) g/dL Albumin 2.5 L (3.5-5.0) g/dL Assessment and Plan Plan: Assessment: 1. Acute kidney injury secondary to ATN secondary to volume depletion and urinary retention. Creatinine 2.03 today. 2. Chronic kidney disease stage III with basic creatinine in the range of 1.3- 1.5 secondary to diabetic kidney disease. 3. Status post CVA. 4. Hypertension with chronic kidney disease. Blood pressure better. 5. Metabolic acidosis secondary to acute kidney injury. Better. 6. Urinary retention status post Lamas catheter placement. 7. Hypokalemia from diuresis. Improved post replacement. Magnesium also on the lower side, which was replaced. 8. UTI with urine culture positive for enterococcus maintained on antibiotics. 9. Diabetes mellitus. 10. Proteinuria. This is likely secondary to underlying diabetic kidney disease. Will further workup outpatient. Plan: Continue to hold off on diuretics and LETICIA inhibitor/ARB for now. Maintain current antihypertensives. Continue to monitor serial postvoid residuals. Maintain flomax.
[2018-11-15 11:56] LABS: Glucose,Whole Blood 339 mg/dL (75-99)
[2018-11-15 13:45] VITALS: BMI 30.2
--- NOTE | 2018-11-15 15:58 | P.PN ---
Subjective Progress Note Date: 11/15/18 Principal diagnosis: Acute lacunar infarct right posterior parietal lobe with generalized weakness and falls, new onset atrial fibrillation, near syncope, 50% stenosis of internal carotid artery, chronic renal failure stage 3-4, hyperkalemia, chronic back pain, history of coronary artery disease status post stent, history of thyroid cancer, hypertension hypertensive cardiovascular disease, 11/15/2018, patient seen and evaluated examined during the rounds clinically slightly better patient has been on Lantus 15 units, the blood glucoses are running in 300 range, from respiratory standpoint patient has been doing good headaches are better patient undergoing physical therapy, still of significant generalized weakness, 11/14/2018, patient seen eval reexamined during the rounds clinically patient has been doing well awake and alert breathing cuff today no obvious distress is present, patient sugar however becomes the and remains fluctuating, patient has been found to be hypomagnesemic has been getting replacement therapy sugar went up to 551 rate appears to be after 200 mL of D5 given with magnesium supplement , will repeat the sugar levels again, patient will benefit from Lantus at bedtime November 13 2018, patient seen eval reexamined during the rounds, labs reviewed medications reviewed renal functions and slightly more compromised today, patient does have a Lamas's catheter, renal services has been following this patient along with cardiovascular services as well, blood pressure slightly elevated but hemodynamics status overall has been stable, for chronic atrial fibrillation patient has been on anticoagulation tolerating very well 11/12/2018, patient seen eval reexamined during the rounds clinically patient has been doing better without continued to have issues associated with labile blood pressure, the amiodarone drip has been discontinued, antihypertensive agents are being adjusted, patient is being followed by neurology cardiovascular services as well as pulmonary services, no new intervention has been recommended for subsegmental atelectasis except deep breathing sense incentive spirometry This is a 83-year-old male patient of Dr. Joseph. Patient presented to the emergency room complaining of multiple falls that has been occurring over the past 2 days. She denies tripping. Per patient fell out of bed. Patient also states he is having chest pain. Patient does follow with cardiology services. Patient does appear to be a poor historian. Family is at bedside. She doesn't past medical history of diabetes mellitus, GERD, hyperlipidemia, hypertension, myocardial infarction, pneumonia, sleep apnea and thyroid answer. patient also states he has history of heart cath with stents. Last heart cath was in 2013. Chest x-ray completed showing elevated right pepito-diaphragm neck with right basilar consolidation which may be related to atelectasis rather than pneumonia correlate clinically for confirmation. Cardiomegaly. CT of head completed showing degenerative and nonspecific white matter changes most typical remote ischemia. EKG completed showing sinus bradycardia with heart rate 58. Creatinine 2.45 and bun 41 potassium also elevated at 5.2. Objective - Vital Signs Vital signs: Vital Signs Temp 97.6 F 11/15/18 11:17 Pulse 53 L 11/15/18 11:17 Resp 16 11/15/18 11:17 BP 134/49 11/15/18 11:17 Pulse Ox 94 L 11/15/18 11:17 Intake & Output 11/14/18 11/15/18 11/15/18 18:59 06:59 18:59 Intake Total 222 200 360 Output Total 550 1250 400 Balance -328 -1050 -40 Weight 92.7 kg Intake: Intake, IV Titration 200 Amount Magnesium Sulfate-D5w Pmx 200 1 gm In Dextrose/Water 1 100ml.bag @ 100 mls/hr IVPB Q1H [facility] Rx#: [id number] Oral 222 360 Output: Urine 550 1250 400 Straight 500 Uretheral (Lamas) 200 Other: Voiding Method Urinal Urinal Urinal # Voids 1 1 1 # Bowel Movements 0 0 - Exam Constitutional General appearance: Present: average body habitus, cooperative, disheveled, mild distress, obese - EENT Eyes: Present: normal appearance ENT: Present: normal oropharynx Ears: bilateral: normal - Neck Carotids: bilateral: upstroke normal Thyroid: bilateral: normal size - Respiratory Respiratory: bilateral: CTA - Cardiovascular Heart sounds: normal: S1, S2 - Gastrointestinal General gastrointestinal: Present: decreased bowel sounds, soft - Neurologic Neurologic: Present: CNII-XII intact - Musculoskeletal Musculoskeletal: Present: generalized weakness - Psychiatric Psychiatric: Present: A&O x's 3, appropriate affect, intact judgment & insight - Labs CBC & Chem 7: 11/15/18 06:23 11/15/18 06:23 Labs: Abnormal Lab Results - Last 24 Hours (Table) 11/14/18 11/14/18 11/14/18 Range/Units 16:41 16:45 16:54 RBC (4.30-5.90) m/uL Hgb (13.0-17.5) gm/dL Hct (39.0-53.0) % BUN (9-20) mg/dL Creatinine (0.66-1.25) mg/dL Glucose 551 H* (74-99) mg/dL POC Glucose (mg/dL) 509 H 529 H (75-99) mg/dL ALT (21-72) U/L Alkaline Phosphatase (38-126) U/L Total Protein (6.3-8.2) g/dL Albumin (3.5-5.0) g/dL 11/14/18 11/14/18 11/15/18 Range/Units 19:44 20:56 06:04 RBC (4.30-5.90) m/uL Hgb (13.0-17.5) gm/dL Hct (39.0-53.0) % BUN (9-20) mg/dL Creatinine (0.66-1.25) mg/dL Glucose (74-99) mg/dL POC Glucose (mg/dL) 469 H 395 H 230 H (75-99) mg/dL ALT (21-72) U/L Alkaline Phosphatase (38-126) U/L Total Protein (6.3-8.2) g/dL Albumin (3.5-5.0) g/dL 11/15/18 11/15/18 11/15/18 Range/Units 06:23 06:23 11:45 RBC 3.54 L (4.30-5.90) m/uL Hgb 11.0 L (13.0-17.5) gm/dL Hct 35.4 L (39.0-53.0) % BUN 38 H (9-20) mg/dL Creatinine 2.03 H (0.66-1.25) mg/dL Glucose 227 H (74-99) mg/dL POC Glucose (mg/dL) 339 H (75-99) mg/dL ALT 82 H (21-72) U/L Alkaline Phosphatase 169 H (38-126) U/L Total Protein 4.9 L (6.3-8.2) g/dL Albumin 2.5 L (3.5-5.0) g/dL Microbiology - Last 24 Hours (Table) 11/15/18 07:28 Urine Culture - Preliminary Urine,Clean Catch Assessment and Plan Assessment: Uncontrolled diabetes and hyperglycemia Right posterior parietal lacunar infarct Near syncope related to above Enterococcus UTIs being treated with IV high-dose ampicillin New-onset atrial fibrillation Generalized weakness and medical debility Frequent falls Hypertension hypertensive cardiovascular disease Labile blood pressure/uncontrolled blood pressure hypertension Plan: Continue Lantus 15 units at bedtime, observe for now may need to go up on 20 in next 24-48 hours Fall precautions Patient has bilateral carotid borderline stenosis will be monitored and observed Monitor renal functions closely Continue home medications Adjustment of antihypertensive agent Patient will likely require placement in extended care facility and rehab evaluation Enterococcus UTIs being treated with IV ampicillin, repeat urine culture results are pending Time with Patient: Greater than 30
[2018-11-15 16:34] LABS: Glucose,Whole Blood 491 mg/dL (75-99)
[2018-11-15 17:03] LABS: Glucose,Whole Blood 492 mg/dL (75-99)
[2018-11-15 20:55] LABS: Glucose,Whole Blood 406 mg/dL (75-99)
[2018-11-15] MEDS: TEMAZEPAM 15 MG CAP PO SCH (21:04)
[2018-11-15] MEDS: ATORVASTATIN 40 MG TAB PO SCH (21:05)
[2018-11-15] MEDS: INSULIN DETEMIR 100 UNIT/ML 10 ML VIAL SQ SCH (21:05)
[2018-11-16 06:01] LABS: Glucose,Whole Blood 156 mg/dL (75-99)
[2018-11-16] MEDS: INSULIN ASPART 100 UNIT/ML 1 ML 10 ML VIAL SQ SCH ×7 (06:50→21:17)
[2018-11-16] MEDS: LEVOTHYROXINE 88 MCG TAB PO SCH (06:51)
[2018-11-16] MEDS: PANTOPRAZOLE 40 MG TABLET PO SCH (06:51)
[2018-11-16 06:58] LABS: Potassium 3.8 mmol/L (3.5-5.1)
[2018-11-16 07:00] LABS: Calcium 9.1 mg/dL (8.4-10.2); Magnesium 2.3 mg/dL (1.6-2.3)
[2018-11-16] MEDS: hydrALAZINE HCL 50 MG TAB PO SCH ×3 (09:53→21:18)
[2018-11-16] MEDS: DOCUSATE 100 MG CAP PO SCH ×3 (09:53→21:19)
[2018-11-16] MEDS: CYANOCOBALAMIN 500 MCG TAB PO SCH (09:53)
[2018-11-16] MEDS: APIXABAN 2.5 MG TABLET PO SCH ×2 (09:54→21:19)
[2018-11-16] MEDS: CITALOPRAM HYDROBROMIDE 20 MG TAB PO SCH ×2 (09:54→18:12)
[2018-11-16] MEDS: LORATADINE 10 MG TAB PO SCH (09:54)
[2018-11-16] MEDS: risperiDONE 1 MG TAB PO SCH ×2 (09:54→21:18)
[2018-11-16] MEDS: amLODIPine 10 MG TAB PO SCH (09:54)
[2018-11-16] MEDS: TAMSULOSIN 0.4 MG CAP.ER.24H PO SCH ×2 (09:54→21:18)
--- NOTE | 2018-11-16 09:54 | P.PN ---
Subjective Patient is seen in follow-up for acute kidney injury on chronic kidney disease. Patient has chronic kidney disease stage III with baseline creatinine in the range of 1.3-1.5 secondary to nephrosclerosis. Renal function worse today with creatinine at 2.35. Patient had a Harper catheter for urinary retention - it was removed on November 14 and he's been voiding on his own - however he's been requiring straight catheterizations. Oral intake is fair. No vomiting or diarrhea. Denies chest pain or shortness of breath. Blood pressure stable. Heart rate is in the 50s. Vital signs are stable. General: The patient appeared well nourished and normally developed. HEENT: Head exam is unremarkable. Neck is without jugular venous distension. LUNGS: Lungs are clear to auscultation and percussion. Breath sounds decreased. HEART: Rate and Rhythm are regular. First and second heart sounds normal. No murmurs, rubs or gallops. ABDOMEN: Abdominal exam reveals normal bowel sounds. Non-tender and non- distended. No evidence of peritonitis. EXTREMITITES: No clubbing, cyanosis, or edema. Objective - Vital Signs Vital signs: Vital Signs Temp 97.9 F 11/15/18 23:32 Pulse 56 L 11/16/18 04:00 Resp 16 11/16/18 04:00 BP 158/66 11/16/18 04:00 Pulse Ox 98 11/16/18 04:00 Intake & Output 11/15/18 11/16/18 11/16/18 18:59 06:59 18:59 Intake Total 1000 50 240 Output Total 800 750 Balance 200 -700 240 Weight 92.7 kg 92.7 kg Intake: Oral 1000 50 240 Output: Urine 800 400 Post Void Residual 350 Other: Voiding Method Urinal Urinal # Voids 1 1 # Bowel Movements 0 0 - Labs CBC & Chem 7: 11/15/18 06:23 11/16/18 06:04 Labs: Abnormal Lab Results - Last 24 Hours (Table) 11/15/18 11/15/18 11/15/18 Range/Units 11:45 16:25 17:01 Chloride (98-107) mmol/L Carbon Dioxide (22-30) mmol/L BUN (9-20) mg/dL Creatinine (0.66-1.25) mg/dL Glucose (74-99) mg/dL POC Glucose (mg/dL) 339 H 491 H 492 H (75-99) mg/dL 11/15/18 11/16/18 11/16/18 Range/Units 20:54 05:59 06:04 Chloride 110 H (98-107) mmol/L Carbon Dioxide 21 L (22-30) mmol/L BUN 45 H (9-20) mg/dL Creatinine 2.35 H (0.66-1.25) mg/dL Glucose 162 H (74-99) mg/dL POC Glucose (mg/dL) 406 H 156 H (75-99) mg/dL Microbiology - Last 24 Hours (Table) 11/15/18 07:28 Urine Culture - Preliminary Urine,Clean Catch Assessment and Plan Plan: Assessment: 1. Acute kidney injury secondary to ATN secondary to volume depletion and urinary retention. Patient also noted to be bradycardic with heart rate in the 50s. Rule out GN as well. Creatinine 2.35 today. 2. Chronic kidney disease stage III with basic creatinine in the range of 1.3- 1.5 secondary to diabetic kidney disease. 3. Status post CVA. 4. Hypertension with chronic kidney disease. Blood pressure stable. 5. Metabolic acidosis secondary to acute kidney injury. 6. Urinary retention status post Harper catheter placement and removal November 14. Noted to have high postvoid residuals. 7. Hypokalemia from diuresis. Improved post replacement. Magnesium also on the lower side, which was replaced. 8. UTI with urine culture positive for enterococcus maintained on antibiotics. 9. Diabetes mellitus. 10. Proteinuria. This is likely secondary to underlying diabetic kidney disease. Rule out GN. Plan: Continue to hold off on diuretics and LETICIA inhibitor/ARB for now. Maintain current antihypertensives. Continue to monitor serial postvoid residuals - insert harper if persistently > 300 cc. Maintain flomax. Check serologies. Check urine eosinophils. Start NS at 50 cc/hr. Hold atenolol if HR <60.
[2018-11-16] MEDS: ATENOLOL 25 MG TAB PO SCH ×2 (09:55→21:13)
[2018-11-16] MEDS: ASPIRIN 81 MG PO SCH (09:55)
[2018-11-16] MEDS: AMOXICILLIN 500 MG CAP PO SCH ×3 (09:56→21:18)
[2018-11-16] MEDS: cycloSPORINE 0.05% OPHTH 0.4 ML DROPERETTE BOTH EYES SCH ×3 (09:56→21:19)
[2018-11-16] MEDS: VIT A,C & E-LUTEIN-MINERALS 1 EACH TAB PO SCH ×2 (09:56→21:18)
[2018-11-16] MEDS: SODIUM CHLORIDE 0.9% 1,000 ML IV SCH (10:02)
[2018-11-16 11:53] LABS: Glucose,Whole Blood 329 mg/dL (75-99)
[2018-11-16 17:35] LABS: Hepatitis A Antibody IgM Non-Reactive (Non-Reactive); Hepatitis B Core IgM Non-Reactive (Non-Reactive)
[2018-11-16 18:11] LABS: Glucose,Whole Blood 301 mg/dL (75-99)
[2018-11-16 18:12] LABS: Amorphous Sediment,Urine Rare /hpf; Appearance,Urine Cloudy (Clear); Bilirubin,Urine Negative (Negative); Blood,Urine Trace (Negative); Color,Urine Yellow; Glucose,Urine (UA) 3+ (Negative); Ketones,Urine Negative (Negative); Leukocyte Esterase,Urine Negative (Negative); Mucus,Urine Rare /hpf; Nitrite,Urine Negative (Negative); PH, Urine 5.5 (5.0-8.0); Protein,Urine 2+ (Negative); RBC,Urine 79 /hpf (0-5); Specific Gravity,Urine 1.011 (1.001-1.035); Squamous Epithelial Cell,Urine <1 /hpf (0-4); Urobilinogen,Urine <2.0 mg/dL (<2.0); WBC,Urine 2 /hpf (0-5)
[2018-11-16 21:12] LABS: Glucose,Whole Blood 265 mg/dL (75-99)
[2018-11-16] MEDS: INSULIN DETEMIR 100 UNIT/ML 10 ML VIAL SQ SCH (21:17)
[2018-11-16] MEDS: TEMAZEPAM 15 MG CAP PO SCH (21:18)
[2018-11-16] MEDS: ATORVASTATIN 40 MG TAB PO SCH (21:19)
--- NOTE | 2018-11-16 21:26 | P.PN ---
Subjective Progress Note Date: 11/16/18 Principal diagnosis: Acute lacunar infarct right posterior parietal lobe with generalized weakness and falls, new onset atrial fibrillation, near syncope, 50% stenosis of internal carotid artery, chronic renal failure stage 3-4, hyperkalemia, chronic back pain, history of coronary artery disease status post stent, history of thyroid cancer, hypertension hypertensive cardiovascular disease, 11/16/2018, patient seen eval examined during the rounds clinically overall slightly better but is still of issues associated with uncontrolled diabetes and hyperglycemia the Lantus has been restarted sugars are now in 300 range, patient has issues problems associated with urinary retention Lamas's catheter has been placed, blood pressure is running on the lower side beta blockers are being held 11/15/2018, patient seen and evaluated examined during the rounds clinically slightly better patient has been on Lantus 15 units, the blood glucoses are running in 300 range, from respiratory standpoint patient has been doing good headaches are better patient undergoing physical therapy, still of significant generalized weakness, 11/14/2018, patient seen eval reexamined during the rounds clinically patient has been doing well awake and alert breathing cuff today no obvious distress is present, patient sugar however becomes the and remains fluctuating, patient has been found to be hypomagnesemic has been getting replacement therapy sugar went up to 551 rate appears to be after 200 mL of D5 given with magnesium supplement , will repeat the sugar levels again, patient will benefit from Lantus at bedtime November 13 2018, patient seen eval reexamined during the rounds, labs reviewed medications reviewed renal functions and slightly more compromised today, patient does have a Lamas's catheter, renal services has been following this patient along with cardiovascular services as well, blood pressure slightly elevated but hemodynamics status overall has been stable, for chronic atrial fibrillation patient has been on anticoagulation tolerating very well 11/12/2018, patient seen eval reexamined during the rounds clinically patient has been doing better without continued to have issues associated with labile blood pressure, the amiodarone drip has been discontinued, antihypertensive agents are being adjusted, patient is being followed by neurology cardiovascular services as well as pulmonary services, no new intervention has been recommended for subsegmental atelectasis except deep breathing sense incentive spirometry This is a 83-year-old male patient of Dr. Joseph. Patient presented to the emergency room complaining of multiple falls that has been occurring over the past 2 days. She denies tripping. Per patient fell out of bed. Patient also states he is having chest pain. Patient does follow with cardiology services. Patient does appear to be a poor historian. Family is at bedside. She doesn't past medical history of diabetes mellitus, GERD, hyperlipidemia, hypertension, myocardial infarction, pneumonia, sleep apnea and thyroid answer. patient also states he has history of heart cath with stents. Last heart cath was in 2013. Chest x-ray completed showing elevated right pepito-diaphragm neck with right basilar consolidation which may be related to atelectasis rather than pneumonia correlate clinically for confirmation. Cardiomegaly. CT of head completed showing degenerative and nonspecific white matter changes most typical remote ischemia. EKG completed showing sinus bradycardia with heart rate 58. Creatinine 2.45 and bun 41 potassium also elevated at 5.2. Objective - Vital Signs Vital signs: Vital Signs Temp 98.1 F 11/16/18 19:42 Pulse 58 L 11/16/18 20:00 Resp 16 11/16/18 20:00 BP 168/71 11/16/18 19:42 Pulse Ox 94 L 11/16/18 19:42 Intake & Output 11/16/18 11/16/18 11/17/18 06:59 18:59 06:59 Intake Total 50 880 Output Total 750 800 0 Balance -700 80 0 Weight 92.7 kg 92.7 kg Intake: IV 400 0.9 400 Oral 50 480 Output: Urine 400 800 0 Post Void Residual 350 Other: Voiding Method Urinal Urinal Urinal # Voids 1 0 0 # Bowel Movements 0 0 0 - Exam Constitutional General appearance: Present: average body habitus, cooperative, disheveled, mild distress, obese - EENT Eyes: Present: normal appearance ENT: Present: normal oropharynx Ears: bilateral: normal - Neck Carotids: bilateral: upstroke normal Thyroid: bilateral: normal size - Respiratory Respiratory: bilateral: CTA - Cardiovascular Heart sounds: normal: S1, S2 - Gastrointestinal General gastrointestinal: Present: decreased bowel sounds, soft - Neurologic Neurologic: Present: CNII-XII intact - Musculoskeletal Musculoskeletal: Present: generalized weakness - Psychiatric Psychiatric: Present: A&O x's 3, appropriate affect, intact judgment & insight - Labs CBC & Chem 7: 11/15/18 06:23 11/16/18 06:04 Labs: Abnormal Lab Results - Last 24 Hours (Table) 11/16/18 11/16/18 11/16/18 Range/Units 05:59 06:04 11:47 Chloride 110 H (98-107) mmol/L Carbon Dioxide 21 L (22-30) mmol/L BUN 45 H (9-20) mg/dL Creatinine 2.35 H (0.66-1.25) mg/dL Glucose 162 H (74-99) mg/dL POC Glucose (mg/dL) 156 H 329 H (75-99) mg/dL Urine Protein (Negative) Urine Glucose (UA) (Negative) Urine Blood (Negative) Urine RBC (0-5) /hpf Amorphous Sediment (None) /hpf Urine Mucus (None) /hpf U Random Total Protein (<12) mg/dL 11/16/18 11/16/18 11/16/18 Range/Units 17:50 17:50 18:07 Chloride (98-107) mmol/L Carbon Dioxide (22-30) mmol/L BUN (9-20) mg/dL Creatinine (0.66-1.25) mg/dL Glucose (74-99) mg/dL POC Glucose (mg/dL) 301 H (75-99) mg/dL Urine Protein 2+ H (Negative) Urine Glucose (UA) 3+ H (Negative) Urine Blood Trace H (Negative) Urine RBC 79 H (0-5) /hpf Amorphous Sediment Rare H (None) /hpf Urine Mucus Rare H (None) /hpf U Random Total Protein 284 H (<12) mg/dL 11/16/18 Range/Units 21:11 Chloride (98-107) mmol/L Carbon Dioxide (22-30) mmol/L BUN (9-20) mg/dL Creatinine (0.66-1.25) mg/dL Glucose (74-99) mg/dL POC Glucose (mg/dL) 265 H (75-99) mg/dL Urine Protein (Negative) Urine Glucose (UA) (Negative) Urine Blood (Negative) Urine RBC (0-5) /hpf Amorphous Sediment (None) /hpf Urine Mucus (None) /hpf U Random Total Protein (<12) mg/dL Microbiology - Last 24 Hours (Table) 11/15/18 07:28 Urine Culture - Final Urine,Clean Catch Assessment and Plan Assessment: Uncontrolled diabetes and hyperglycemia Hypotension Urinary retention Right posterior parietal lacunar infarct Near syncope related to above Enterococcus UTIs being treated with IV high-dose ampicillin New-onset atrial fibrillation Generalized weakness and medical debility Frequent falls Hypertension hypertensive cardiovascular disease Labile blood pressure/uncontrolled blood pressure hypertension Plan: Continue Lantus 15 units at bedtime, observe for now may need to go up on 20 in next 24-48 hours Fall precautions Hold beta blockers as per parameters Lamas's catheter has been inserted Patient has bilateral carotid borderline stenosis will be monitored and observed Monitor renal functions closely Continue home medications Adjustment of antihypertensive agent Patient will likely require placement in extended care facility and rehab evaluation Enterococcus UTIs being treated with IV ampicillin, repeat urine culture results are pending Time with Patient: Greater than 30
[2018-11-17 00:32] VITALS: RESP 18
[2018-11-17] MEDS: SODIUM CHLORIDE 0.9% 1,000 ML IV SCH ×2 (05:43→11:00)
[2018-11-17 06:07] LABS: Glucose,Whole Blood 137 mg/dL (75-99)
[2018-11-17 06:32] LABS: Calcium 8.5 mg/dL (8.4-10.2); Magnesium 2.4 mg/dL (1.6-2.3); Potassium 3.7 mmol/L (3.5-5.1)
[2018-11-17] MEDS: PANTOPRAZOLE 40 MG TABLET PO SCH (06:54)
[2018-11-17] MEDS: INSULIN ASPART 100 UNIT/ML 1 ML 10 ML VIAL SQ SCH ×7 (06:54→20:58)
[2018-11-17] MEDS: LEVOTHYROXINE 88 MCG TAB PO SCH (06:54)
[2018-11-17] MEDS: AMOXICILLIN 500 MG CAP PO SCH ×3 (09:03→23:38)
[2018-11-17] MEDS: cycloSPORINE 0.05% OPHTH 0.4 ML DROPERETTE BOTH EYES SCH ×2 (09:03→20:48)
[2018-11-17] MEDS: VIT A,C & E-LUTEIN-MINERALS 1 EACH TAB PO SCH ×2 (09:03→20:48)
[2018-11-17] MEDS: CITALOPRAM HYDROBROMIDE 20 MG TAB PO SCH ×2 (09:04→17:33)
[2018-11-17] MEDS: APIXABAN 2.5 MG TABLET PO SCH ×2 (09:04→20:47)
[2018-11-17] MEDS: LORATADINE 10 MG TAB PO SCH (09:04)
[2018-11-17] MEDS: ASPIRIN 81 MG PO SCH (09:04)
[2018-11-17] MEDS: ATENOLOL 25 MG TAB PO SCH ×2 (09:04→20:47)
[2018-11-17] MEDS: hydrALAZINE HCL 50 MG TAB PO SCH ×3 (09:04→20:48)
[2018-11-17] MEDS: risperiDONE 1 MG TAB PO SCH ×2 (09:04→20:47)
[2018-11-17] MEDS: amLODIPine 10 MG TAB PO SCH (09:04)
[2018-11-17] MEDS: TAMSULOSIN 0.4 MG CAP.ER.24H PO SCH ×2 (09:04→20:48)
[2018-11-17] MEDS: DOCUSATE 100 MG CAP PO SCH ×2 (09:04→20:47)
[2018-11-17] MEDS: CYANOCOBALAMIN 500 MCG TAB PO SCH (09:04)
[2018-11-17] MEDS ORDERED: LACTULOSE 20 GM/30 ML CUP PO PRN (10:54)
--- NOTE | 2018-11-17 11:08 | P.PN ---
Subjective Patient is seen in follow-up for acute kidney injury on chronic kidney disease. Patient has chronic kidney disease stage III with baseline creatinine in the range of 1.3-1.5 secondary to nephrosclerosis. Renal function relatively stable today. Lamas catheter had to be reinserted last night due to persistent urinary retention. Oral intake is fair. No vomiting or diarrhea. Denies chest pain or shortness of breath. Blood pressure stable. Heart rate is in the 50s. Vital signs are stable. General: The patient appeared well nourished and normally developed. HEENT: Head exam is unremarkable. Neck is without jugular venous distension. LUNGS: Lungs are clear to auscultation and percussion. Breath sounds decreased. HEART: Rate and Rhythm are regular. First and second heart sounds normal. No murmurs, rubs or gallops. ABDOMEN: Abdominal exam reveals normal bowel sounds. Non-tender and non- distended. No evidence of peritonitis. EXTREMITITES: No clubbing, cyanosis, or edema. Objective - Vital Signs Vital signs: Vital Signs Temp 98 F 11/17/18 08:00 Pulse 58 L 11/17/18 08:00 Resp 18 11/17/18 08:00 BP 148/69 11/17/18 08:00 Pulse Ox 98 11/17/18 08:00 Intake & Output 11/16/18 11/17/18 11/17/18 18:59 06:59 18:59 Intake Total 880 480 240 Output Total 800 650 Balance 80 -170 240 Weight 96.2 kg Intake: IV 400 0.9 400 Oral 480 480 240 Output: Urine 800 650 Other: Voiding Method Urinal Urinal Urinal # Voids 0 0 # Bowel Movements 0 0 - Labs CBC & Chem 7: 11/15/18 06:23 11/17/18 05:29 Labs: Abnormal Lab Results - Last 24 Hours (Table) 11/16/18 11/16/18 11/16/18 Range/Units 11:47 17:50 17:50 Chloride (98-107) mmol/L Carbon Dioxide (22-30) mmol/L BUN (9-20) mg/dL Creatinine (0.66-1.25) mg/dL Glucose (74-99) mg/dL POC Glucose (mg/dL) 329 H (75-99) mg/dL Magnesium (1.6-2.3) mg/dL Urine Protein 2+ H (Negative) Urine Glucose (UA) 3+ H (Negative) Urine Blood Trace H (Negative) Urine RBC 79 H (0-5) /hpf Amorphous Sediment Rare H (None) /hpf Urine Mucus Rare H (None) /hpf U Random Total Protein 284 H (<12) mg/dL 11/16/18 11/16/18 11/17/18 Range/Units 18:07 21:11 05:29 Chloride 110 H (98-107) mmol/L Carbon Dioxide 21 L (22-30) mmol/L BUN 51 H (9-20) mg/dL Creatinine 2.28 H (0.66-1.25) mg/dL Glucose 134 H (74-99) mg/dL POC Glucose (mg/dL) 301 H 265 H (75-99) mg/dL Magnesium 2.4 H (1.6-2.3) mg/dL Urine Protein (Negative) Urine Glucose (UA) (Negative) Urine Blood (Negative) Urine RBC (0-5) /hpf Amorphous Sediment (None) /hpf Urine Mucus (None) /hpf U Random Total Protein (<12) mg/dL 11/17/18 Range/Units 06:05 Chloride (98-107) mmol/L Carbon Dioxide (22-30) mmol/L BUN (9-20) mg/dL Creatinine (0.66-1.25) mg/dL Glucose (74-99) mg/dL POC Glucose (mg/dL) 137 H (75-99) mg/dL Magnesium (1.6-2.3) mg/dL Urine Protein (Negative) Urine Glucose (UA) (Negative) Urine Blood (Negative) Urine RBC (0-5) /hpf Amorphous Sediment (None) /hpf Urine Mucus (None) /hpf U Random Total Protein (<12) mg/dL Microbiology - Last 24 Hours (Table) 11/15/18 07:28 Urine Culture - Final Urine,Clean Catch Assessment and Plan Plan: Assessment: 1. Acute kidney injury secondary to ATN secondary to volume depletion and urinary retention. Patient also noted to be bradycardic with heart rate in the 50s. Rule out GN as well. Renal function relatively stable. Urine eosinophils negative. 2. Chronic kidney disease stage III with basic creatinine in the range of 1.3- 1.5 secondary to diabetic kidney disease. 3. Status post CVA. 4. Hypertension with chronic kidney disease. Blood pressure stable. 5. Metabolic acidosis secondary to acute kidney injury. 6. Urinary retention status post Lamas catheter placement due to persistent urinary retention. 7. Hypokalemia from diuresis. Improved post replacement. Magnesium also on the lower side, which was replaced. 8. UTI with urine culture positive for enterococcus maintained on antibiotics. 9. Diabetes mellitus. 10. Proteinuria. This is likely secondary to underlying diabetic kidney disease. Rule out GN. Plan: Continue to hold off on diuretics and LETICIA inhibitor/ARB for now. Maintain current antihypertensives. Maintain Lamas catheter. Maintain flomax. Follow-up serologies. Maintain NS at 50 cc/hr. Hold atenolol if HR <60.
[2018-11-17 11:54] LABS: Glucose,Whole Blood 199 mg/dL (75-99)
[2018-11-17 16:30] LABS: Glucose,Whole Blood 378 mg/dL (75-99)
--- NOTE | 2018-11-17 18:39 | HP ---
HISTORY AND PHYSICAL DATE OF SERVICE: 10/21/2018 He has been hemodynamically stable. He does not seem short of breath, but is quite weak and is unable to walk. On physical examination respiratory rate is 18, pulse rate 63, temperature 97.5, blood pressure 135/63, O2 saturation on room air is 93%. HEENT is unremarkable. Chest is clear. Cardiovascular system reveals an S1, S2. Abdomen is soft. There is trace pedal edema. IMPRESSION: 1. Acute on chronic renal failure. 2. Medical debility. 3. Diabetes mellitus, uncontrolled. 4. Enterococcal urinary tract infection. 5. New onset atrial fibrillation. 6. Right posterior lacunar infarct. At this point in time would consult Physical Medicine and Rehab, increase his activity level, continue physical therapy and occupational therapy. His prognosis is guarded. MMODL / IJN: [id number] /
[2018-11-17 20:36] LABS: Glucose,Whole Blood 381 mg/dL (75-99)
[2018-11-17] MEDS: ATORVASTATIN 40 MG TAB PO SCH (20:47)
[2018-11-17] MEDS: TEMAZEPAM 15 MG CAP PO SCH (20:47)
[2018-11-17] MEDS: INSULIN DETEMIR 100 UNIT/ML 10 ML VIAL SQ SCH (20:48)
[2018-11-17 20:57] LABS: Glucose,Whole Blood 395 mg/dL (75-99)
[2018-11-18] MEDS: INSULIN ASPART 100 UNIT/ML 1 ML 10 ML VIAL SQ SCH ×4 (06:03→12:28)
[2018-11-18 06:04] LABS: Glucose,Whole Blood 123 mg/dL (75-99)
[2018-11-18 06:53] LABS: Calcium 8.3 mg/dL (8.4-10.2); Potassium 4.1 mmol/L (3.5-5.1)
[2018-11-18] MEDS: PANTOPRAZOLE 40 MG TABLET PO SCH (06:55)
[2018-11-18] MEDS: LEVOTHYROXINE 88 MCG TAB PO SCH (06:55)
[2018-11-18] MEDS: SODIUM CHLORIDE 0.9% 1,000 ML IV SCH (06:56)
--- NOTE | 2018-11-18 07:01 | P.CONS ---
History of Present Illness - Chief Complaint Gait disturbance and falling - History of Present Illness I had the opportunity to see patient for inpatient rehab consultation with regard to gait disturbance and falling. He was admitted to [facility] November 08 with weakness and falls 2 days duration. Seen in consultation by cardiology for known cardiac disease. Dr. Marin for pulmonary. Dr. Coates who notes right posterior parietal lacunar infarct. Dr. Israel for acute kidney injury. Chest x-ray cardiomegaly and atelectasis. Head CT with extensive degenerative change. T-spine with spurring. Carotid Doppler with 50% stenosis internal carotid right more than left. Brain MRI with white matter change and right posterior parietal lacunar infarct. Pulmonary perfusion scan negative for PE but consistent with COPD. PT reports supervision for bed mobility and minimal assistance to stand and transfer. Supervision for gait 5 feet with roller walker. OT reports supervision for upper dressing and minimal to moderate assistance for lower dressing and bathing. Moderate to maximal sits for toileting and 2 person moderate to maximal assistance for transfers. Previous functional history as elicited patient: 83-year-old right-handed white male who is lives in one floor home with . Both retired. does cooking and laundry. Neither drive. Patient independent with standing shower and gait with 4 wheeled walker. History smoking about past. Doesn't drink. Dr. Joseph is regular doctor. Family history both parents with NV. Review of Systems Review of systems: ENT: Denies sneezes or discharge. Eyes: Denies discharge or photophobia. Cardiac: Denies chest pain or palpitation. Pulmonary: Denies cough or shortness of breath. Gastrointestinal: Denies nausea, emesis, constipation, diarrhea. Genitourinary: Denies discharge or frequency. Musculoskeletal: Denies muscle or bone aches. Neurologic: Denies motor or sensory change. Endocrine: Denies shakes or sweats. Oncology: Denies cancers. Dermatologic: Denies rash, itching, pruritus. ALLERGY/immunology: Denies sneezes, rashes. Past Medical History Past Medical History: Coronary Artery Disease (CAD), Cancer, Diabetes Mellitus, GERD/Reflux, Hyperlipidemia, Hypertension, Myocardial Infarction (NV), Pneumonia , Prostate Disorder, Sleep Apnea/CPAP/BIPAP, Thyroid Disorder Additional Past Medical History / Comment(s): no CPAP used, hiatal hernia, hx thyroid cancer, macular degeneration danielle eyes Last Myocardial Infarction Date:: 1999 History of Any Multi-Drug Resistant Organisms: None Reported Past Surgical History: Heart Catheterization With Stent, Joint Replacement Additional Past Surgical History / Comment(s): left knee replacement, danielle cataracts, thyroidectomy Past Anesthesia/Blood Transfusion Reactions: No Reported Reaction Additional Past Anesthesia/Blood Transfusion Reaction / Comm: clausterphobia - "uses open mri" Date of Last Stent Placement:: 1999 Smoking Status: Former smoker - Past Family History Father Family Medical History: Cancer Mother Family Medical History: Cancer Medications and Allergies Home Medications Medication Instructions Recorded Confirmed Type Aspirin 325 mg PO DAILY 09/29/14 11/07/18 History Atenolol [Tenormin] 25 mg PO DAILY 09/29/14 11/07/18 History Citalopram Hydrobromide [CeleXA] 20 mg PO AC-SUPPER 09/29/14 11/07/18 History Citalopram Hydrobromide 40 mg PO DAILY 09/29/14 11/07/18 History [Citalopram HBr] Eszopiclone [Lunesta] 3 mg PO HS 09/29/14 11/07/18 History LORazepam [Ativan] 1 mg PO TID 09/29/14 11/07/18 History Levothyroxine Sodium [Synthroid] 88 mcg PO DAILY 09/29/14 11/07/18 History Losartan Potassium [Cozaar] 100 mg PO DAILY 09/29/14 11/07/18 History Multivitamins, Thera [Multivitamin] 1 each PO DAILY 09/29/14 11/07/18 History Omeprazole [PriLOSEC] 20 mg PO BID 09/29/14 11/07/18 History Restaisi(Dose Unknown) 1 drop BOTH EYES BID 09/29/14 11/07/18 History Saxagliptin HCl [Onglyza] 5 mg PO AC-SUPPER 09/29/14 11/07/18 History Simvastatin [Zocor] 40 mg PO HS 09/29/14 11/07/18 History Tamsulosin HCl [Flomax] 0.4 mg PO DAILY 09/29/14 11/07/18 History buPROPion [Wellbutrin] 75 mg PO HS 09/29/14 11/07/18 History buPROPion [Wellbutrin] 150 mg PO QAM 09/29/14 11/07/18 History glipiZIDE [Glucotrol] 10 mg PO TID 09/29/14 11/07/18 History risperiDONE [RisperDAL] 0.5 mg PO HS 09/29/14 11/07/18 History Cyanocobalamin [Vitamin B-12] 500 mcg PO DAILY 11/07/18 11/07/18 History Diphenox-Atrop 2.5-0.025 mg 1 tab PO Q4-6H PRN 11/07/18 11/07/18 History [Lomotil] Linagliptin [Tradjenta] 5 mg PO DAILY 11/07/18 11/07/18 History Loratadine [Claritin] 10 mg PO DAILY 11/07/18 11/07/18 History [place]-3 Fatty Acids/Fish Oil [Fish 1 cap PO DAILY 11/07/18 11/07/18 History Oil 1,000 mg Softgel] Tamsulosin HCl [Flomax] 0.4 mg PO HS 11/07/18 11/07/18 History Vit C/E/Zn/Coppr/Lutein/Zeaxan 1 cap PO BID 11/07/18 11/07/18 History [Preservision Areds 2 Softgel] metFORMIN HCL 1,000 mg PO BID 11/07/18 11/07/18 History Allergies Allergy/AdvReac Type Severity Reaction Status Date / Time No Known Allergies Allergy Verified 11/07/18 12:22 Physical Exam Vitals: Vital Signs Temp Pulse Resp BP Pulse Ox 11/18/18 04:00 97.1 F L 56 L 15 127/59 93 L 11/18/18 00:00 98.1 F 58 L 16 147/67 94 L 11/17/18 20:00 97.4 F L 67 15 150/65 93 L 11/17/18 16:00 97.9 F 60 18 140/62 92 L 11/17/18 12:00 97.5 F L 63 18 135/63 93 L 11/17/18 08:00 98 F 58 L 18 148/69 98 Intake and Output 11/17/18 11/17/18 11/18/18 14:59 22:59 06:59 Intake Total 730 760 400 Output Total 475 Balance 255 760 400 Intake: IV 400 0.9 400 Intake, IV Titration 250 400 Amount Sodium Chloride 0.9% 1, 250 400 000 ml @ 50 mls/hr IV . Q20H [facility] Rx#:[id number] Oral 480 360 Output: Urine 475 Other: Voiding Method Urinal Indwelling Catheter Indwelling Catheter Weight 97.6 kg Skin: Good color, texture, turgor. General: Medium build and comfortable appearance. Head: Normocephalic, atraumatic. Eyes: Symmetric. Pupils equal round. Ears: Symmetric. Hearing within normal limits. Mouth: Clear. Neck: Supple. Carotid without bruit. Cardiac: Regular rate and rhythm. Lungs: Clear anteriorly and posteriorly. Abdomen: Soft active nontender. Extremities: Normal tone. Neurological: Mental status: Alert, cooperative, pleasant. Cranial nerves: Symmetric facial tone and trapezius. Motor: Normal strength and isolation all 4 limbs. Sensation: Intact throughout. DTRs: Symmetric and equal throughout. Mobility: Bed mobility without assistance. Results CBC & Chem 7: 11/15/18 06:23 11/18/18 05:42 Labs: Abnormal Lab Results - Last 24 Hours (Table) 11/17/18 11/17/18 11/17/18 Range/Units 11:39 16:27 20:34 Chloride (98-107) mmol/L Carbon Dioxide (22-30) mmol/L BUN (9-20) mg/dL Creatinine (0.66-1.25) mg/dL Glucose (74-99) mg/dL POC Glucose (mg/dL) 199 H 378 H 381 H (75-99) mg/dL Calcium (8.4-10.2) mg/dL 11/17/18 11/18/18 11/18/18 Range/Units 20:55 05:42 06:01 Chloride 115 H (98-107) mmol/L Carbon Dioxide 21 L (22-30) mmol/L BUN 48 H (9-20) mg/dL Creatinine 2.17 H (0.66-1.25) mg/dL Glucose 116 H (74-99) mg/dL POC Glucose (mg/dL) 395 H 123 H (75-99) mg/dL Calcium 8.3 L (8.4-10.2) mg/dL Assessment and Plan (1) Lacunar infarct, acute Current Visit: Yes Status: Acute Code(s): I63.81 - OTHER CEREB INFRC DUE TO OCCLS OR STENOSIS OF SMALL ARTERY SNOMED Code(s): 881606226 Plan: Impression: 1. Gait disturbance history of frequent falling. 2. Right posterior parietal infarct. 3. Paroxysmal atrial fibrillation. 4. Hypertension. 5. Dyslipidemia. 6. Diabetes. 7. Coronary artery disease with history of NV. 8. sleep apnea and CPAP. Comments and plan: At this time PT and OT are ongoing. Speech therapy prescribed at this time. Follow therapies with yourself for possible admission to inpatient rehab.
[2018-11-18] MEDS: APIXABAN 2.5 MG TABLET PO SCH (09:06)
[2018-11-18] MEDS: TAMSULOSIN 0.4 MG CAP.ER.24H PO SCH (09:06)
[2018-11-18] MEDS: DOCUSATE 100 MG CAP PO SCH (09:06)
[2018-11-18] MEDS: hydrALAZINE HCL 50 MG TAB PO SCH (09:06)
[2018-11-18] MEDS: risperiDONE 1 MG TAB PO SCH (09:07)
[2018-11-18] MEDS: CYANOCOBALAMIN 500 MCG TAB PO SCH (09:07)
[2018-11-18] MEDS: ATENOLOL 25 MG TAB PO SCH (09:07)
[2018-11-18] MEDS: CITALOPRAM HYDROBROMIDE 20 MG TAB PO SCH (09:07)
[2018-11-18] MEDS: amLODIPine 10 MG TAB PO SCH (09:07)
[2018-11-18] MEDS: cycloSPORINE 0.05% OPHTH 0.4 ML DROPERETTE BOTH EYES SCH (09:08)
[2018-11-18] MEDS: AMOXICILLIN 500 MG CAP PO SCH (09:08)
[2018-11-18] MEDS: VIT A,C & E-LUTEIN-MINERALS 1 EACH TAB PO SCH (09:08)
[2018-11-18] MEDS: ASPIRIN 81 MG PO SCH (09:13)
[2018-11-18 09:23] LABS: Basophils % (A) 0 %; Eosinophils # (A) 0.3 k/uL (0-0.7); Eosinophils % (A) 4 %; HCT 31.8 % (39.0-53.0); HGB 9.9 gm/dL (13.0-17.5); Lymphocytes % (A) 14 %; MCH 31.4 pg (25.0-35.0); MCHC 31.2 g/dL (31.0-37.0); MCV 100.7 fL (80.0-100.0); Macrocytosis Slight; Mean Platelet Volume 8.4; Monocytes # (A) 0.6 k/uL (0-1.0); Monocytes % (A) 8 %; Neutrophils # (A) 5.2 k/uL (1.3-7.7); Neutrophils % (A) 72 %; Platelet Count 205 k/uL (150-450); RBC 3.15 m/uL (4.30-5.90); RDW 13.5 % (11.5-15.5); WBC 7.2 k/uL (3.8-10.6)
[2018-11-18 09:29] LABS: Albumin 2.3 g/dL (3.5-5.0); Total Bilirubin 0.4 mg/dL (0.2-1.3); Total Protein 4.8 g/dL (6.3-8.2)
--- NOTE | 2018-11-18 10:42 | P.PN ---
Subjective Patient is seen in follow-up for acute kidney injury on chronic kidney disease. Patient has chronic kidney disease stage III with baseline creatinine in the range of 1.3-1.5 secondary to nephrosclerosis. Renal function a little better with creatinine at 2.17 today. Lamas catheter had to be reinserted last night due to persistent urinary retention. Oral intake is fair. No vomiting or diarrhea. Denies chest pain or shortness of breath. Blood pressure stable. Heart rate is in the 50s. Vital signs are stable. General: The patient appeared well nourished and normally developed. HEENT: Head exam is unremarkable. Neck is without jugular venous distension. LUNGS: Lungs are clear to auscultation and percussion. Breath sounds decreased. HEART: Rate and Rhythm are regular. First and second heart sounds normal. No murmurs, rubs or gallops. ABDOMEN: Abdominal exam reveals normal bowel sounds. Non-tender and non- distended. No evidence of peritonitis. EXTREMITITES: No clubbing, cyanosis, or edema. Objective - Vital Signs Vital signs: Vital Signs Temp 96.8 F L 11/18/18 08:00 Pulse 58 L 11/18/18 08:00 Resp 18 11/18/18 08:00 BP 145/71 11/18/18 08:00 Pulse Ox 91 L 11/18/18 08:00 Intake & Output 11/17/18 11/18/18 11/18/18 18:59 06:59 18:59 Intake Total 850 1040 240 Output Total 475 Balance 375 1040 240 Weight 97.6 kg Intake: IV 400 0.9 400 Intake, IV Titration 250 400 Amount Sodium Chloride 0.9% 1, 250 400 000 ml @ 50 mls/hr IV . Q20H [facility] Rx#:[id number] Oral 600 240 240 Output: Urine 475 Other: Voiding Method Urinal Indwelling Catheter Indwelling Catheter - Labs CBC & Chem 7: 11/18/18 05:42 11/18/18 05:42 Labs: Abnormal Lab Results - Last 24 Hours (Table) 11/17/18 11/17/18 11/17/18 Range/Units 11:39 16:27 20:34 RBC (4.30-5.90) m/uL Hgb (13.0-17.5) gm/dL Hct (39.0-53.0) % MCV (80.0-100.0) fL Chloride (98-107) mmol/L Carbon Dioxide (22-30) mmol/L BUN (9-20) mg/dL Creatinine (0.66-1.25) mg/dL Glucose (74-99) mg/dL POC Glucose (mg/dL) 199 H 378 H 381 H (75-99) mg/dL Calcium (8.4-10.2) mg/dL Alkaline Phosphatase (38-126) U/L Total Protein (6.3-8.2) g/dL Albumin (3.5-5.0) g/dL 11/17/18 11/18/18 11/18/18 Range/Units 20:55 05:42 05:42 RBC 3.15 L (4.30-5.90) m/uL Hgb 9.9 L (13.0-17.5) gm/dL Hct 31.8 L (39.0-53.0) % MCV 100.7 H (80.0-100.0) fL Chloride 115 H (98-107) mmol/L Carbon Dioxide 21 L (22-30) mmol/L BUN 48 H (9-20) mg/dL Creatinine 2.17 H (0.66-1.25) mg/dL Glucose 116 H (74-99) mg/dL POC Glucose (mg/dL) 395 H (75-99) mg/dL Calcium 8.3 L (8.4-10.2) mg/dL Alkaline Phosphatase 135 H (38-126) U/L Total Protein 4.8 L (6.3-8.2) g/dL Albumin 2.3 L (3.5-5.0) g/dL 11/18/18 Range/Units 06:01 RBC (4.30-5.90) m/uL Hgb (13.0-17.5) gm/dL Hct (39.0-53.0) % MCV (80.0-100.0) fL Chloride (98-107) mmol/L Carbon Dioxide (22-30) mmol/L BUN (9-20) mg/dL Creatinine (0.66-1.25) mg/dL Glucose (74-99) mg/dL POC Glucose (mg/dL) 123 H (75-99) mg/dL Calcium (8.4-10.2) mg/dL Alkaline Phosphatase (38-126) U/L Total Protein (6.3-8.2) g/dL Albumin (3.5-5.0) g/dL Assessment and Plan Plan: Assessment: 1. Acute kidney injury secondary to ATN secondary to volume depletion and urinary retention. Patient also noted to be bradycardic with heart rate in the 50s. Rule out GN as well. Renal function relatively stable. Urine eosinophils negative. 2. Chronic kidney disease stage III with basic creatinine in the range of 1.3- 1.5 secondary to diabetic kidney disease. 3. Status post CVA. 4. Hypertension with chronic kidney disease. Blood pressure stable. 5. Metabolic acidosis secondary to acute kidney injury. Stable. 6. Urinary retention status post Lamas catheter placement due to persistent urinary retention. 7. Hypokalemia from diuresis. Improved post replacement. Magnesium also on the lower side, which was replaced. 8. UTI with urine culture positive for enterococcus maintained on antibiotics. 9. Diabetes mellitus. 10. Proteinuria. This is likely secondary to underlying diabetic kidney disease. Rule out GN. Plan: Continue to hold off on diuretics and LETICIA inhibitor/ARB for now. Maintain current antihypertensives. Maintain Lamas catheter. Maintain flomax. Follow-up serologies. Maintain NS at 50 cc/hr. Hold atenolol if HR <60. Anticipate discharge soon. He will need to follow-up outpatient in the next 1- 2 weeks.
[2018-11-18 11:27] VITALS: BP 146/67; PULSE 56; TEMP 98
[2018-11-18 11:49] LABS: Glucose,Whole Blood 178 mg/dL (75-99)
--- NOTE | 2018-11-18 12:15 | P.PN ---
Subjective Progress Note Date: 11/18/18 This is a 83-year-old male patient of Dr. Joseph. Patient presented to the emergency room complaining of multiple falls that has been occurring over the past 2 days. She denies tripping. Per patient fell out of bed. Patient also states he is having chest pain. Patient does follow with cardiology services. Patient does appear to be a poor historian. Family is at bedside. She doesn't past medical history of diabetes mellitus, GERD, hyperlipidemia, hypertension, myocardial infarction, pneumonia, sleep apnea and thyroid answer. patient also states he has history of heart cath with stents. Last heart cath was in 2013. Chest x-ray completed showing elevated right pepito-diaphragm neck with right basilar consolidation which may be related to atelectasis rather than pneumonia correlate clinically for confirmation. Cardiomegaly. CT of head completed showing degenerative and nonspecific white matter changes most typical remote ischemia. EKG completed showing sinus bradycardia with heart rate 58. Creatinine 2.45 and bun 41 potassium also elevated at 5.2. Patient also states he fell on Thanksgiving his back at this time. Patient denies any back x-rays being completed. Dr. Sauer will be consulted for nephrology services. Dr. Sparks has been consulted for cardiology services. Patient does complain of some burning with urination. Urinary analysis has been ordered. Denies cough or shortness breath. Denies nausea vomiting or diarrhea. On 11/08/2018 patient is currently resting in bed. Patient does appear more confused than yesterday. Patient also went into atrial fibrillation last night. Cardiology services are following and recommending eliquis for anticoagulation. Patient also continued to have tremor. Patient is on multiple psych medications. Recommending neurology consult for further evaluation. Patient also to be transferred to cardiac stepdown unit for closer monitoring. On 11/09/2018 patient is alert and responsive in no apparent distress he just received an EEG per neurology orders, MRI last night revealed evidence of lacunar infarct, overall condition is improving, there is no fever or chills no headache or dizziness no chest pain no shortness of breath at this time no cough no nausea or vomiting no abdominal pain and no urinary symptoms. On 11/10/2018 patient is alert and oriented 3 in no apparent distress he denies any pain he is complaining of generalized weakness otherwise he denies any complaints at this time 11/11/2018 patient is currently in sinus bradycardia. Amiodarone drip discontinued this morning. Cardiology following. Patient also having elevated blood pressures. Hydralazine added yesterday and and atenolol increased to 25 mg twice a day. Awaiting repeat blood pressure after morning meds. Patient's seen by neurology. They're concerned about possible Parkinson's however unable to start any medications for patient's tremors due to patient's psych meds. Patient reports been about 4 days since his last bowel movement. Passing some gas. No abdominal pain. Some mild nausea no actual vomiting. 11/12/2018, patient seen eval reexamined during the rounds clinically patient has been doing better without continued to have issues associated with labile blood pressure, the amiodarone drip has been discontinued, antihypertensive agents are being adjusted, patient is being followed by neurology cardiovascular services as well as pulmonary services, no new intervention has been recommended for subsegmental atelectasis except deep breathing sense incentive /29/2018, patient seen eval examined during the rounds clinically overall slightly better but is still of issues associated with uncontrolled diabetes and hyperglycemia the Lantus has been restarted sugars are now in 300 range, patient has issues problems associated with urinary retention Lamas's catheter has been placed, blood pressure is running on the lower side beta blockers are being held November 13 2018, patient seen eval reexamined during the rounds, labs reviewed medications reviewed renal functions and slightly more compromised today, patient does have a Lamas's catheter, renal services has been following this patient along with cardiovascular services as well, blood pressure slightly elevated but hemodynamics status overall has been stable, for chronic atrial fibrillation patient has been on anticoagulation tolerating very well 11/14/2018, patient seen eval reexamined during the rounds clinically patient has been doing well awake and alert breathing cuff today no obvious distress is present, patient sugar however becomes the and remains fluctuating, patient has been found to be hypomagnesemic has been getting replacement therapy sugar went up to 551 rate appears to be after 200 mL of D5 given with magnesium supplement , will repeat the sugar levels again, patient will benefit from Lantus at bedtime 11/15/2018, patient seen and evaluated examined during the rounds clinically slightly better patient has been on Lantus 15 units, the blood glucoses are running in 300 range, from respiratory standpoint patient has been doing good headaches are better patient undergoing physical therapy, still of significant generalized weakness, On 11/18/2018 patient is currently resting in bed. Patient is feeling improved. Blood sugars have improved. This time patient denies chest pain or shortness of breath. Patient denies nausea vomiting or diarrhea. Patient denies any urinary burning or frequency Objective - Vital Signs Vital signs: Vital Signs Temp 98 F 11/18/18 11:25 Pulse 56 L 11/18/18 11:25 Resp 18 11/18/18 11:25 BP 146/67 11/18/18 11:25 Pulse Ox 92 L 11/18/18 11:25 Intake & Output 11/17/18 11/18/18 11/18/18 18:59 06:59 18:59 Intake Total 850 1040 240 Output Total 475 Balance 375 1040 240 Weight 97.6 kg Intake: IV 400 0.9 400 Intake, IV Titration 250 400 Amount Sodium Chloride 0.9% 1, 250 400 000 ml @ 50 mls/hr IV . Q20H [facility] Rx#:[id number] Oral 600 240 240 Output: Urine 475 Other: Voiding Method Urinal Indwelling Catheter Indwelling Catheter - Exam Head normocephalic Neck supple Lungs clear to auscultation bilaterally no wheezing or crackles Heart regular rate and rhythm S1-S2, no rub or gallop Abdomen is soft nontender nondistended positive bowel sounds no hepatosplenomegaly Extremities no edema Neuro alert and orientated to 3 - Labs CBC & Chem 7: 11/18/18 05:42 11/18/18 05:42 Labs: Abnormal Lab Results - Last 24 Hours (Table) 11/17/18 11/17/18 11/17/18 Range/Units 16:27 20:34 20:55 RBC (4.30-5.90) m/uL Hgb (13.0-17.5) gm/dL Hct (39.0-53.0) % MCV (80.0-100.0) fL Chloride (98-107) mmol/L Carbon Dioxide (22-30) mmol/L BUN (9-20) mg/dL Creatinine (0.66-1.25) mg/dL Glucose (74-99) mg/dL POC Glucose (mg/dL) 378 H 381 H 395 H (75-99) mg/dL Calcium (8.4-10.2) mg/dL Alkaline Phosphatase (38-126) U/L Total Protein (6.3-8.2) g/dL Albumin (3.5-5.0) g/dL 11/18/18 11/18/18 11/18/18 Range/Units 05:42 05:42 06:01 RBC 3.15 L (4.30-5.90) m/uL Hgb 9.9 L (13.0-17.5) gm/dL Hct 31.8 L (39.0-53.0) % MCV 100.7 H (80.0-100.0) fL Chloride 115 H (98-107) mmol/L Carbon Dioxide 21 L (22-30) mmol/L BUN 48 H (9-20) mg/dL Creatinine 2.17 H (0.66-1.25) mg/dL Glucose 116 H (74-99) mg/dL POC Glucose (mg/dL) 123 H (75-99) mg/dL Calcium 8.3 L (8.4-10.2) mg/dL Alkaline Phosphatase 135 H (38-126) U/L Total Protein 4.8 L (6.3-8.2) g/dL Albumin 2.3 L (3.5-5.0) g/dL 11/18/18 Range/Units 11:26 RBC (4.30-5.90) m/uL Hgb (13.0-17.5) gm/dL Hct (39.0-53.0) % MCV (80.0-100.0) fL Chloride (98-107) mmol/L Carbon Dioxide (22-30) mmol/L BUN (9-20) mg/dL Creatinine (0.66-1.25) mg/dL Glucose (74-99) mg/dL POC Glucose (mg/dL) 178 H (75-99) mg/dL Calcium (8.4-10.2) mg/dL Alkaline Phosphatase (38-126) U/L Total Protein (6.3-8.2) g/dL Albumin (3.5-5.0) g/dL Assessment and Plan Assessment: 1. Acute lacunar infarct with Increased weakness with falls. Possibly secondary to patient's new onset of atrial fibrillation. Head CT completed showing degenerative and nonspecific white matter change most typical of remote ischemia. MRI was suggestive of acute lacunar infarct neurology are following . EEG noted mild encephalopathy. Neurology following. 2. Possible Syncopal episode. Carotid ultrasound completed showing close to 50 % stenosis in both internal carotid arteries more than 50% stenosis in the right external carotid artery. 3. Chest pain. Initial troponin negative. Cardiac enzymes ordered. Cardiac telemetry ordered. Cardiology services consulted 4. Acute on chronic kidney disease. Acute component is related to prerenal azotemia and urinary retention and hypokalemia. patient is maintained on IV fluid and Flomax . Nephrology following 5. Hyperkalemia. Resolved potassium 4.1 today 6. Back pain. Patient states he fell a few weeks ago and hurt his back. X- ray thoracic spine completed showing some demineralization with no evidence of acute fracture or dislocation 7. Diabetes mellitus. Home medications held at this time will order sliding scale coverage. Patient having elevated blood sugars. Long acting 20 units has been added along with 5 units plus sliding scale coverage 8. History of cardiac stent. 9. History of thyroid cancer. 10. Hypothyroidism patient maintained on Synthroid 11. Essential hypertension 12. History of GERD 13. History of anxiety and depression. Home meds resumed 14. Evidence of acute lacunar infarct in the right posterior parietal lobe 15. Increased confusion. Neurology services consulted 16. Right basal consolidation seen on chest x-ray. Pulmonary services have been consulted 17. Tremor. Evaluated by neurology. Concerns of possible he could be related to Parkinson's and also his lacunar infarct. Unfortunately cannot start Parkinson medications for tremor due to patient's psychiatric medications. Patient will follow-up with neurology outpatient. 18. New-onset atrial fibrillation with rapid ventricular response during this admission. Patient has converted to sinus rhythm. Evaluated by cardiology. Currently off of the amiodarone drip. Cardiology increased the atenolol to 25 mg twice a day. Anticoagulated with Eliquis 19. Essential hypertension with elevated uncontrolled blood pressures. Hydralazine 25 mg twice a day increased by cardiology. 20. constipation give Colace and lactulose 21. UTI: Urine culture growing enterococcus faecalis. Patient currently on amoxicillin 1000 mg by mouth every 8 hours. The urine cultures pending 22. History of schizophrenia . Psych consult in regards to psychiatric meds. Per site Risperdal has been increased 1 mg by mouth daily Wellbutrin has been DC 'd 23. anemia. Iron studies will be ordered 24. Bilateral carotid borderline stenosis Per Dr. Abdullahi possible admission to inpatient rehab
[2018-11-18] MEDS: LORATADINE 10 MG TAB PO SCH (12:28)
[2018-11-18 14:17] LABS: C-ANCA <1:20 Titer (<1:20); P-ANCA <1:20 Titer (<1:20)
--- NOTE | 2018-11-18 15:22 | P.DS ---
Providers Date of admission: 11/08/18 13:38 Expected date of discharge: 11/18/18 Attending physician: Jasmyne Pizano Consults: 11/07/18 15:19 Consult Physician Urgent Consulting Provider: Sabrina Sauer Consult Reason/Comments: arf Do you want consulting provider notified?: Yes 11/07/18 15:26 Consult Physician Routine Consulting Provider: Reggie Sparks Consult Reason/Comments: chest pain. syncopal episode Do you want consulting provider notified?: Yes 11/08/18 10:40 Consult Physician Routine Consulting Provider: Khari Coates Consult Reason/Comments: increase confusion and tremor Do you want consulting provider notified?: Yes 11/08/18 10:41 Consult Physician Routine Consulting Provider: Tien Marin Consult Reason/Comments: right Basilar consolidation Do you want consulting provider notified?: Yes 11/11/18 12:06 Consult Physician Routine Consulting Provider: Emre Espana Consult Reason/Comments: regarding psych meds Do you want consulting provider notified?: Yes 11/17/18 16:44 Consult Physician Routine Consulting Provider: Levy Abdullahi Consult Reason/Comments: medical debility Do you want consulting provider notified?: Yes Primary care physician: Amy Joseph Hospital Course: Discharge diagnosis 1. Acute lacunar infarct with Increased weakness with falls. Possibly secondary to patient's new onset of atrial fibrillation. Head CT completed showing degenerative and nonspecific white matter change most typical of remote ischemia. MRI was suggestive of acute lacunar infarct neurology are following . EEG noted mild encephalopathy. cleared for discharge from neurology standpoint 2. Possible Syncopal episode. Carotid ultrasound completed showing close to 50 % stenosis in both internal carotid arteries more than 50% stenosis in the right external carotid artery. 3. Chest pain. Initial troponin negative. Cardiac enzymes ordered. Cardiac telemetry ordered. resolved 4. Acute on chronic kidney disease. Acute component is related to prerenal azotemia and urinary retention and hypokalemia. patient is maintained on IV fluid and Flomax . She has been cleared for discharge from nephrology standpoint. Patient to be DC'd with Lamas catheter for urinary retention. A thin arm DC'd upon discharge. 5. Hyperkalemia. Resolved potassium 4.1 today 6. Back pain. Patient states he fell a few weeks ago and hurt his back. X- ray thoracic spine completed showing some demineralization with no evidence of acute fracture or dislocation 7. Diabetes mellitus. Home medications held at this time will order sliding scale coverage. Patient having elevated blood sugars. Long acting 20 units has been added along with 5 units plus sliding scale coverage 8. History of cardiac stent. 9. History of thyroid cancer. 10. Hypothyroidism patient maintained on Synthroid 11. Essential hypertension 12. History of GERD 13. History of anxiety and depression. Home meds resumed 14. Evidence of acute lacunar infarct in the right posterior parietal lobe 15. Increased confusion. resolved. Patient has been cleared for discharge from neurology services 16 Right basal consolidation seen on chest x-ray. Pulmonary services have been consulted 17. Tremor. Evaluated by neurology. Concerns of possible he could be related to Parkinson's and also his lacunar infarct. Unfortunately cannot start Parkinson medications for tremor due to patient's psychiatric medications. Patient will follow-up with neurology outpatient. 18. New-onset atrial fibrillation with rapid ventricular response during this admission. Patient has converted to sinus rhythm. Evaluated by cardiology. Currently off of the amiodarone drip. Cardiology increased the atenolol to 25 mg twice a day. Anticoagulated with Eliquis 19. Essential hypertension with elevated uncontrolled blood pressures. Hydralazine 25 mg twice a day increased by cardiology. 20. constipation give Colace and lactulose 21. UTI: Urine culture growing enterococcus faecalis. Patient currently on amoxicillin 1000 mg by mouth every 8 hours. Repeat urine culture showing no growth. Patient will be DC'd on amoxicillin or 7 days 22. History of schizophrenia . Psych consult in regards to psychiatric meds. Per site Risperdal has been increased 1 mg by mouth daily Wellbutrin has been DC 'd 23. anemia. Iron studies will be ordered 24. Bilateral carotid borderline stenosis 25. Urinary retention. Patient maintained on Flomax. Patient will be DC'd with Lamas catheter in place for follow-up with nephrology services and follow [facility] protocol. Urinary retention and Lamas catheter removal Hospital course This is a 83-year-old male patient of Dr. Joseph. Patient presented to the emergency room complaining of multiple falls that has been occurring over the past 2 days. She denies tripping. Per patient fell out of bed. Patient also states he is having chest pain. Patient does follow with cardiology services. Patient does appear to be a poor historian. Family is at bedside. She doesn't past medical history of diabetes mellitus, GERD, hyperlipidemia, hypertension, myocardial infarction, pneumonia, sleep apnea and thyroid answer. patient also states he has history of heart cath with stents. Last heart cath was in 2013. Chest x-ray completed showing elevated right pepito-diaphragm neck with right basilar consolidation which may be related to atelectasis rather than pneumonia correlate clinically for confirmation. Cardiomegaly. CT of head completed showing degenerative and nonspecific white matter changes most typical remote ischemia. EKG completed showing sinus bradycardia with heart rate 58. Creatinine 2.45 and bun 41 potassium also elevated at 5.2. Patient also states he fell on Thanksgiving his back at this time. Patient denies any back x-rays being completed. Dr. Sauer will be consulted for nephrology services. Dr. Sparks has been consulted for cardiology services. Patient does complain of some burning with urination. Urinary analysis has been ordered. Denies cough or shortness breath. Denies nausea vomiting or diarrhea. On 11/08/2018 patient is currently resting in bed. Patient does appear more confused than yesterday. Patient also went into atrial fibrillation last night. Cardiology services are following and recommending eliquis for anticoagulation. Patient also continued to have tremor. Patient is on multiple psych medications. Recommending neurology consult for further evaluation. Patient also to be transferred to cardiac stepdown unit for closer monitoring. On 11/09/2018 patient is alert and responsive in no apparent distress he just received an EEG per neurology orders, MRI last night revealed evidence of lacunar infarct, overall condition is improving, there is no fever or chills no headache or dizziness no chest pain no shortness of breath at this time no cough no nausea or vomiting no abdominal pain and no urinary symptoms. On 11/10/2018 patient is alert and oriented 3 in no apparent distress he denies any pain he is complaining of generalized weakness otherwise he denies any complaints at this time 11/11/2018 patient is currently in sinus bradycardia. Amiodarone drip discontinued this morning. Cardiology following. Patient also having elevated blood pressures. Hydralazine added yesterday and and atenolol increased to 25 mg twice a day. Awaiting repeat blood pressure after morning meds. Patient's seen by neurology. They're concerned about possible Parkinson's however unable to start any medications for patient's tremors due to patient's psych meds. Patient reports been about 4 days since his last bowel movement. Passing some gas. No abdominal pain. Some mild nausea no actual vomiting. 11/12/2018, patient seen eval reexamined during the rounds clinically patient has been doing better without continued to have issues associated with labile blood pressure, the amiodarone drip has been discontinued, antihypertensive agents are being adjusted, patient is being followed by neurology cardiovascular services as well as pulmonary services, no new intervention has been recommended for subsegmental atelectasis except deep breathing sense incentive [id number], patient seen eval examined during the rounds clinically overall slightly better but is still of issues associated with uncontrolled diabetes and hyperglycemia the Lantus has been restarted sugars are now in 300 range, patient has issues problems associated with urinary retention Lamas's catheter has been placed, blood pressure is running on the lower side beta blockers are being held November 13 2018, patient seen eval reexamined during the rounds, labs reviewed medications reviewed renal functions and slightly more compromised today, patient does have a Lamas's catheter, renal services has been following this patient along with cardiovascular services as well, blood pressure slightly elevated but hemodynamics status overall has been stable, for chronic atrial fibrillation patient has been on anticoagulation tolerating very well 11/14/2018, patient seen eval reexamined during the rounds clinically patient has been doing well awake and alert breathing cuff today no obvious distress is present, patient sugar however becomes the and remains fluctuating, patient has been found to be hypomagnesemic has been getting replacement therapy sugar went up to 551 rate appears to be after 200 mL of D5 given with magnesium supplement , will repeat the sugar levels again, patient will benefit from Lantus at bedtime 11/15/2018, patient seen and evaluated examined during the rounds clinically slightly better patient has been on Lantus 15 units, the blood glucoses are running in 300 range, from respiratory standpoint patient has been doing good headaches are better patient undergoing physical therapy, still of significant generalized weakness, On 11/18/2018 patient is currently resting in bed. Patient is feeling improved. Blood sugars have improved. This time patient denies chest pain or shortness of breath. Patient denies nausea vomiting or diarrhea. Patient denies any urinary burning or frequency Patient has been cleared for discharge from nephrology and consulting provider services. Patient states [facility] Patient will be DC'd with amoxicillin for 7 more days for urinary tract infection. Patient also will be DC'd on eliquis for new onset atrial fibrillation. At this time patient denies chest pain or shortness breath. Patient denies nausea vomiting or diarrhea. Patient denies any urinary burning or frequency I performed an examination of the patient and discussed their management with the Nurse Practitioner. I have reviewed the Nurse Practitioner's notes and agree with the documented findings and plan of care Patient Condition at Discharge: Stable Plan - Discharge Summary Discharge Rx Participant: Yes New Discharge Prescriptions: New amLODIPine [Norvasc] 10 mg PO DAILY tab Amoxicillin 1,000 mg PO Q8HR 7 Days #42 cap Apixaban [Eliquis] 2.5 mg PO BID tablet Aspirin 81 mg PO DAILY chew Docusate [Colace] 100 mg PO BID cap hydrALAZINE HCL [Apresoline] 100 mg PO TID tab Insulin Aspart [NovoLOG (formulary)] 5 unit SQ AC-TID vial Insulin Aspart [NovoLOG (formulary)] 0 unit SQ ACHS vial Insulin Detemir [Levemir] 20 unit SQ HS syr Lactulose [Cephulac] 15 gm PO TID PRN ml PRN Reason: Constipation risperiDONE [RisperDAL] 1 mg PO BID 3 Days #6 tab Temazepam [Restoril] 15 mg PO HS 3 Days #3 cap LORazepam [Ativan] 1 mg PO TID PRN #9 tab PRN Reason: Anxiety Continue Tamsulosin HCl [Flomax] 0.4 mg PO DAILY Citalopram Hydrobromide [Citalopram HBr] 40 mg PO DAILY Simvastatin [Zocor] 40 mg PO HS Omeprazole [PriLOSEC] 20 mg PO BID Levothyroxine Sodium [Synthroid] 88 mcg PO DAILY Citalopram Hydrobromide [CeleXA] 20 mg PO AC-SUPPER Atenolol [Tenormin] 25 mg PO DAILY Restaisi(Dose Unknown) 1 drop BOTH EYES BID Multivitamins, Thera [Multivitamin (formulary)] 1 each PO DAILY Tamsulosin HCl [Flomax] 0.4 mg PO HS Diphenox-Atrop 2.5-0.025 mg [Lomotil] 1 tab PO Q4-6H PRN PRN Reason: Diarrhea Cyanocobalamin [Vitamin B-12] 500 mcg PO DAILY Vit C/E/Zn/Coppr/Lutein/Zeaxan [Preservision Areds 2 Softgel] 1 cap PO BID Loratadine [Claritin] 10 mg PO DAILY Discontinued risperiDONE [RisperDAL] 0.5 mg PO HS buPROPion [Wellbutrin] 150 mg PO QAM buPROPion [Wellbutrin] 75 mg PO HS Eszopiclone [Lunesta] 3 mg PO HS glipiZIDE [Glucotrol] 10 mg PO TID LORazepam [Ativan] 1 mg PO TID Aspirin 325 mg PO DAILY Losartan Potassium [Cozaar] 100 mg PO DAILY Saxagliptin HCl [Onglyza] 5 mg PO AC-SUPPER metFORMIN HCL 1,000 mg PO BID [place]-3 Fatty Acids/Fish Oil [Fish Oil 1,000 mg Softgel] 1 cap PO DAILY Linagliptin [Tradjenta] 5 mg PO DAILY Discharge Medication List Atenolol [Tenormin] 25 mg PO DAILY 09/29/14 [History] Citalopram Hydrobromide [CeleXA] 20 mg PO AC-SUPPER 09/29/14 [History] Citalopram Hydrobromide [Citalopram HBr] 40 mg PO DAILY 09/29/14 [History] Levothyroxine Sodium [Synthroid] 88 mcg PO DAILY 09/29/14 [History] Multivitamins, Thera [Multivitamin (formulary)] 1 each PO DAILY 09/29/14 [ History] Omeprazole [PriLOSEC] 20 mg PO BID 09/29/14 [History] Restaisi(Dose Unknown) 1 drop BOTH EYES BID 09/29/14 [History] Simvastatin [Zocor] 40 mg PO HS 09/29/14 [History] Tamsulosin HCl [Flomax] 0.4 mg PO DAILY 09/29/14 [History] Cyanocobalamin [Vitamin B-12] 500 mcg PO DAILY 11/07/18 [History] Diphenox-Atrop 2.5-0.025 mg [Lomotil] 1 tab PO Q4-6H PRN 11/07/18 [History] Loratadine [Claritin] 10 mg PO DAILY 11/07/18 [History] Tamsulosin HCl [Flomax] 0.4 mg PO HS 11/07/18 [History] Vit C/E/Zn/Coppr/Lutein/Zeaxan [Preservision Areds 2 Softgel] 1 cap PO BID 11/07 [History] Amoxicillin 1,000 mg PO Q8HR 7 Days #42 cap 11/18/18 [Rx] Apixaban [Eliquis] 2.5 mg PO BID tablet 11/18/18 [Rx] Aspirin 81 mg PO DAILY chew 11/18/18 [Rx] Docusate [Colace] 100 mg PO BID cap 11/18/18 [Rx] Insulin Aspart [NovoLOG (formulary)] 0 unit SQ ACHS vial 11/18/18 [Rx] Insulin Aspart [NovoLOG (formulary)] 5 unit SQ AC-TID vial 11/18/18 [Rx] Insulin Detemir [Levemir] 20 unit SQ HS syr 11/18/18 [Rx] LORazepam [Ativan] 1 mg PO TID PRN #9 tab 11/18/18 [Rx] Lactulose [Cephulac] 15 gm PO TID PRN ml 11/18/18 [Rx] Temazepam [Restoril] 15 mg PO HS 3 Days #3 cap 11/18/18 [Rx] amLODIPine [Norvasc] 10 mg PO DAILY tab 11/18/18 [Rx] hydrALAZINE HCL [Apresoline] 100 mg PO TID tab 11/18/18 [Rx] risperiDONE [RisperDAL] 1 mg PO BID 3 Days #6 tab 11/18/18 [Rx] Follow up Appointment(s)/Referral(s): Amy Joseph DO [Primary Care Provider] - 1-2 days Major Israel DO [STAFF PHYSICIAN] - 1 Week Activity/Diet/Wound Care/Special Instructions: Patient will be DC'd to [facility] Will be DC'd with Lamas catheter due to urinary retention. Patient to follow with nephrology services Diet renal/consistent carb Discharge Disposition: TRANSFER TO SNF/ECF
== END 2018-11-18 16:45 | DRG 64 ==
LOC: EC 11:32 → 1SOBS 15:28 → OBSVTOIN 11-08 13:38 → 3SCARD 11-08 15:25
PROVIDERS: ADMIT Internal Medicine; ATTEND Internal Medicine
DX: I63.81 Other cerebral infarction due to occlusion or stenosis of small artery (principal); N17.0 Acute kidney failure with tubular necrosis; G93.49 Other encephalopathy; N39.0 Urinary tract infection, site not specified; J98.11 Atelectasis; N13.8 Other obstructive and reflux uropathy; E87.2 Acidosis; R29.810 Facial weakness; R26.2 Difficulty in walking, not elsewhere classified; R40.2362 Coma scale, best motor response, obeys commands, at arrival to emergency department; R40.2142 Coma scale, eyes open, spontaneous, at arrival to emergency department; R40.2252 Coma scale, best verbal response, oriented, at arrival to emergency department; I95.9 Hypotension, unspecified; E87.5 Hyperkalemia; E11.65 Type 2 diabetes mellitus with hyperglycemia; E11.22 Type 2 diabetes mellitus with diabetic chronic kidney disease; G20 Parkinson's disease; E83.42 Hypomagnesemia; I48.0 Paroxysmal atrial fibrillation; E86.1 Hypovolemia; J44.9 Chronic obstructive pulmonary disease, unspecified; I25.5 Ischemic cardiomyopathy; F25.1 Schizoaffective disorder, depressive type; I13.10 Hypertensive heart and chronic kidney disease without heart failure, with stage 1 through stage 4 chronic kidney disease, or unspecified chronic kidney disease; D64.9 Anemia, unspecified; N18.3 Chronic kidney disease, stage 3 (moderate); B95.2 Enterococcus as the cause of diseases classified elsewhere; N40.1 Benign prostatic hyperplasia with lower urinary tract symptoms; I25.10 Atherosclerotic heart disease of native coronary artery without angina pectoris; E89.0 Postprocedural hypothyroidism; G89.29 Other chronic pain; M54.9 Dorsalgia, unspecified; H35.30 Unspecified macular degeneration; G47.33 Obstructive sleep apnea (adult) (pediatric); K44.9 Diaphragmatic hernia without obstruction or gangrene; I25.2 Old myocardial infarction; K21.9 Gastro-esophageal reflux disease without esophagitis; E78.5 Hyperlipidemia, unspecified; H55.00 Unspecified nystagmus; H53.8 Other visual disturbances; K59.00 Constipation, unspecified; R29.6 Repeated falls; F41.9 Anxiety disorder, unspecified; Z91.81 History of falling; Z79.82 Long term (current) use of aspirin; Z79.84 Long term (current) use of oral hypoglycemic drugs; Z79.890 Hormone replacement therapy; Z79.899 Other long term (current) drug therapy; Z87.891 Personal history of nicotine dependence; Z87.01 Personal history of pneumonia (recurrent); Z95.5 Presence of coronary angioplasty implant and graft; Z96.652 Presence of left artificial knee joint; Z85.850 Personal history of malignant neoplasm of thyroid; Z98.42 Cataract extraction status, left eye; Z98.41 Cataract extraction status, right eye; Z80.9 Family history of malignant neoplasm, unspecified; W06.XXXA Fall from bed, initial encounter
CPT/HCPCS: 36415; 70450; 70551; 71046; 72072; 78582; 80048; 80053; 80061; 80074; 81001; 82550; 82553; 82570; 82947; 83090; 83605; 83735; 83883; 84100; 84156; 84439; 84443; 84481; 84484; 85025; 85379; 85610; 85730; 86160; 86162; 86255; 86334; 86335; 87077; 87086; 87186; 87205; 93005; 93306; 93880; 94760; 95819; 99285

== ENCOUNTER 2018-11-26 21:52 | Inpatient (IN) | payer MEDICARE, BC ==
[2018-11-26 22:34] LABS: Basophils % (A) 0 %; Eosinophils # (A) 0.1 k/uL (0-0.7); Eosinophils % (A) 1 %; HCT 33.8 % (39.0-53.0); HGB 10.7 gm/dL (13.0-17.5); Hypochromasia Moderate; Lymphocytes # (A) 0.7 k/uL (1.0-4.8); Lymphocytes % (A) 7 %; MCH 32.7 pg (25.0-35.0); MCHC 31.7 g/dL (31.0-37.0); Macrocytosis Slight; Mean Platelet Volume 7.4; Monocytes # (A) 0.4 k/uL (0-1.0); Monocytes % (A) 3 %; Neutrophils # (A) 9.8 k/uL (1.3-7.7); Neutrophils % (A) 88 %; Platelet Count 320 k/uL (150-450); RBC 3.28 m/uL (4.30-5.90); RDW 13.8 % (11.5-15.5); WBC 11.1 k/uL (3.8-10.6)
--- NOTE | 2018-11-26 22:36 | ED ---
SOB HPI - General Chief Complaint: Shortness of Breath Stated Complaint: WILLIAM Time Seen by Provider: 11/26/18 22:07 Source: patient Mode of arrival: EMS Limitations: no limitations - History of Present Illness Initial Comments: This patient is an 83-year-old man transferred here from [facility] to be evaluated for cough and shortness of breath. Patient states that this is been going on for 2-3 days. It was reported to me that the patient had received breathing treatment, solu-medrol, as well as Lasix, with not much change in his breathing. He was on nasal cannula oxygen there as well. It was reported that he had low pulse oximetry readings, and therefore was transferred for further evaluation here. The patient states that the shortness of breath and coughing has been getting worse over the past 2-3 days. He has had a little bit of white to yellow sputum. He denies chest pain. He denies change in urination or bowel movements. No leg pain or swelling. She is not aware of fever or chills. MD Complaint: shortness of breath, cough Onset/Timin -: days(s) Severity: moderate Consistency: constant Improves With: nothing Worsens With: nothing Known History Of: COPD - Related Data Home Medications Medication Instructions Recorded Confirmed Atenolol [Tenormin] 25 mg PO DAILY 09/29/14 11/26/18 Citalopram Hydrobromide 40 mg PO DAILY 09/29/14 11/26/18 [Citalopram HBr] Levothyroxine Sodium [Synthroid] 88 mcg PO DAILY 09/29/14 11/26/18 Multivitamins, Thera [Multivitamin 1 each PO DAILY 09/29/14 11/26/18 (formulary)] Omeprazole [PriLOSEC] 20 mg PO BID 09/29/14 11/26/18 Restaisi(Dose Unknown) 1 drop BOTH EYES BID 09/29/14 11/26/18 Simvastatin [Zocor] 40 mg PO HS 09/29/14 11/26/18 Cyanocobalamin [Vitamin B-12] 500 mcg PO DAILY 11/07/18 11/26/18 Tamsulosin HCl [Flomax] 0.4 mg PO HS 11/07/18 11/26/18 Vit C/E/Zn/Coppr/Lutein/Zeaxan 1 cap PO BID 11/07/18 11/26/18 [Preservision Areds 2 Softgel] Acetaminophen [Tylenol] 650 mg PO Q4H 11/26/18 11/26/18 Bismuth Subsalicylate [Kaopectate] 262 mg PO Q4H 11/26/18 11/26/18 Fluticasone Nasal [place] [Flonase 2 spray EA NOSTRIL DAILY 11/26/18 11/26/18 Nasal [place]] Insulin Aspart [NovoLOG] See Protocol SQ DIRECTED 11/26/18 11/26/18 Insulin Detemir [Levemir] 20 unit SQ HS 11/26/18 11/26/18 Loratadine [Claritin] 10 mg PO DAILY 11/26/18 11/26/18 Mag Hydrox/Al Hydrox/Simeth 30 ml PO Q4H 11/26/18 11/26/18 [Maalox] Melatonin 3 mg PO HS 11/26/18 11/26/18 buPROPion [Wellbutrin] 150 mg PO DAILY 11/26/18 11/26/18 Previous Rx's Medication Instructions Recorded Apixaban [Eliquis] 2.5 mg PO BID tablet 11/18/18 Aspirin 81 mg PO DAILY chew 11/18/18 Docusate [Colace] 100 mg PO BID cap 11/18/18 Insulin Aspart [NovoLOG 5 unit SQ AC-TID vial 11/18/18 (formulary)] LORazepam [Ativan] 1 mg PO TID PRN #9 tab 11/18/18 Lactulose [Cephulac] 15 gm PO TID PRN ml 11/18/18 risperiDONE [RisperDAL] 1 mg PO BID 3 Days #6 tab 11/18/18 Amoxicillin/Potassium Clav 1 tab PO Q12HR #10 tab 11/28/18 [Augmentin 875-125 Tablet] INSULIN LISPRO (HumaLOG) [humaLOG] 0 unit SQ ACHS #1 vial 11/28/18 Ipratropium/Albuterol Sulfate 2 puff INHALATION QID #1 inhaler 11/28/18 [Combivent Respimat Inhaler] Allergies Allergy/AdvReac Type Severity Reaction Status Date / Time No Known Allergies Allergy Verified 11/26/18 22:06 Review of Systems ROS Statement: Those systems with pertinent positive or pertinent negative responses have been documented in the HPI. ROS Other: All systems not noted in ROS Statement are negative. Constitutional: Denies: fever, chills Respiratory: Reports: cough, dyspnea. Denies: hemoptysis Cardiovascular: Denies: chest pain, palpitations, edema Gastrointestinal: Denies: abdominal pain, vomiting, diarrhea, melena, hematochezia Genitourinary: Denies: dysuria Musculoskeletal: Denies: back pain Skin: Denies: rash Neurological: Denies: headache Past Medical History Past Medical History: Coronary Artery Disease (CAD), Cancer, Diabetes Mellitus, GERD/Reflux, Hyperlipidemia, Hypertension, Myocardial Infarction ([place]), Pneumonia , Prostate Disorder, Sleep Apnea/CPAP/BIPAP, Thyroid Disorder Additional Past Medical History / Comment(s): no CPAP used, hiatal hernia, hx thyroid cancer, macular degeneration danielle eyes Last Myocardial Infarction Date:: 1999 History of Any Multi-Drug Resistant Organisms: None Reported Past Surgical History: Heart Catheterization With Stent, Joint Replacement Additional Past Surgical History / Comment(s): left knee replacement, danielle cataracts, thyroidectomy Past Anesthesia/Blood Transfusion Reactions: No Reported Reaction Additional Past Anesthesia/Blood Transfusion Reaction / Comment(s): clausterphobia -"uses open mri" Date of Last Stent Placement:: 1999 Past Psychological History: Anxiety, Depression, Schizophrenia Smoking Status: Former smoker - Past Family History Father Family Medical History: Cancer Mother Family Medical History: Cancer General Exam Limitations: no limitations General appearance: alert, in distress (Patient appears in mild respiratory distress with tachypnea) Head exam: Present: atraumatic, normocephalic Eye exam: Present: normal appearance ENT exam: Present: normal oropharynx Neck exam: Present: normal inspection Respiratory exam: Present: respiratory distress, wheezes, rhonchi, prolonged expiratory. Absent: accessory muscle use, decreased breath sounds Cardiovascular Exam: Present: regular rate, normal rhythm, systolic murmur ( Grade 1/6). Absent: diastolic murmur, rubs, gallop GI/Abdominal exam: Present: soft. Absent: distended, tenderness, guarding, rebound, rigid Extremities exam: Present: normal inspection, normal capillary refill. Absent: pedal edema, calf tenderness Back exam: Present: normal inspection. Absent: CVA tenderness (R), CVA tenderness (L) Neurological exam: Present: alert Skin exam: Present: warm, dry, intact, normal color. Absent: rash Course Vital Signs 11/26/18 11/26/18 11/26/18 21:54 22:00 22:01 Temperature 97.9 F Pulse Rate 66 71 Respiratory 22 26 H Rate Blood Pressure 125/69 149/71 O2 Sat by Pulse 86 L 85 L Oximetry 11/26/18 11/26/18 11/26/18 22:10 22:30 22:55 Temperature Pulse Rate 62 63 Respiratory 26 H 17 18 Rate Blood Pressure 143/79 O2 Sat by Pulse 98 Oximetry 11/26/18 22:56 Temperature Pulse Rate Respiratory Rate Blood Pressure 135/69 O2 Sat by Pulse Oximetry Medical Decision Making - Lab Data Result diagrams: 12/02/18 05:07 12/02/18 05:07 Lab Results 11/26/18 11/26/18 11/26/18 Range/Units 22:04 22:04 22:04 WBC 11.1 H (3.8-10.6) k/uL RBC 3.28 L (4.30-5.90) m/uL Hgb 10.7 L (13.0-17.5) gm/dL Hct 33.8 L (39.0-53.0) % MCV 103.0 H (80.0-100.0) fL MCH 32.7 (25.0-35.0) pg MCHC 31.7 (31.0-37.0) g/dL RDW 13.8 (11.5-15.5) % Plt Count 320 (150-450) k/uL Neutrophils % 88 % Lymphocytes % 7 % Monocytes % 3 % Eosinophils % 1 % Basophils % 0 % Neutrophils # 9.8 H (1.3-7.7) k/uL Lymphocytes # 0.7 L (1.0-4.8) k/uL Monocytes # 0.4 (0-1.0) k/uL Eosinophils # 0.1 (0-0.7) k/uL Basophils # 0.0 (0-0.2) k/uL Hypochromasia Moderate Macrocytosis Slight PT (9.0-12.0) sec INR (<1.2) APTT (22.0-30.0) sec D-Dimer (<0.60) mg/L FEU Sodium 137 (137-145) mmol/L Potassium 5.5 H (3.5-5.1) mmol/L Chloride 109 H (98-107) mmol/L Carbon Dioxide 20 L (22-30) mmol/L Anion Gap 8 mmol/L BUN 50 H (9-20) mg/dL Creatinine 1.96 H (0.66-1.25) mg/dL Est GFR (CKD-EPI)AfAm 36 (>60 ml/min/1.73 sqM) Est GFR (CKD-EPI)NonAf 31 (>60 ml/min/1.73 sqM) Glucose 248 H (74-99) mg/dL Calcium 9.1 (8.4-10.2) mg/dL Total Bilirubin 0.7 (0.2-1.3) mg/dL AST 30 (17-59) U/L ALT 38 (21-72) U/L Alkaline Phosphatase 128 H (38-126) U/L Total Creatine Kinase 138 (55-170) U/L CK-MB (CK-2) 4.3 H (0.0-2.4) ng/mL CK-MB (CK-2) Rel Index 3.1 Troponin I 0.015 (0.000-0.034) ng/mL NT-Pro-B Natriuret Pep pg/mL Total Protein 6.0 L (6.3-8.2) g/dL Albumin 3.2 L (3.5-5.0) g/dL 11/26/18 11/26/18 11/26/18 Range/Units 22:04 22:04 22:04 WBC (3.8-10.6) k/uL RBC (4.30-5.90) m/uL Hgb (13.0-17.5) gm/dL Hct (39.0-53.0) % MCV (80.0-100.0) fL MCH (25.0-35.0) pg MCHC (31.0-37.0) g/dL RDW (11.5-15.5) % Plt Count (150-450) k/uL Neutrophils % % Lymphocytes % % Monocytes % % Eosinophils % % Basophils % % Neutrophils # (1.3-7.7) k/uL Lymphocytes # (1.0-4.8) k/uL Monocytes # (0-1.0) k/uL Eosinophils # (0-0.7) k/uL Basophils # (0-0.2) k/uL Hypochromasia Macrocytosis PT 10.9 (9.0-12.0) sec INR 1.0 (<1.2) APTT 26.9 (22.0-30.0) sec D-Dimer 0.98 H (<0.60) mg/L FEU Sodium (137-145) mmol/L Potassium (3.5-5.1) mmol/L Chloride (98-107) mmol/L Carbon Dioxide (22-30) mmol/L Anion Gap mmol/L BUN (9-20) mg/dL Creatinine (0.66-1.25) mg/dL Est GFR (CKD-EPI)AfAm (>60 ml/min/1.73 sqM) Est GFR (CKD-EPI)NonAf (>60 ml/min/1.73 sqM) Glucose (74-99) mg/dL Calcium (8.4-10.2) mg/dL Total Bilirubin (0.2-1.3) mg/dL AST (17-59) U/L ALT (21-72) U/L Alkaline Phosphatase (38-126) U/L Total Creatine Kinase (55-170) U/L CK-MB (CK-2) (0.0-2.4) ng/mL CK-MB (CK-2) Rel Index Troponin I (0.000-0.034) ng/mL NT-Pro-B Natriuret Pep 3890 pg/mL Total Protein (6.3-8.2) g/dL Albumin (3.5-5.0) g/dL - EKG Data -: EKG Interpreted by Ma EKG shows normal: sinus rhythm, intervals (AZ interval 144 ms, QRS duration 96 ms, both normal. QTc is 467 ms, prolonged.), QRS complexes (Normal) Rate: normal (Rate 67 bpm) Interpretation: nonspecific ST-T wave changes Disposition Clinical Impression: Pneumonia Disposition: ADMITTED IP TO THIS [facility] Condition: Stable
[2018-11-26 22:41] LABS: Partial Thromboplastin Time 26.9 sec (22.0-30.0); Prothrombin Time 10.9 sec (9.0-12.0)
[2018-11-26 22:53] LABS: Albumin 3.2 g/dL (3.5-5.0); Calcium 9.1 mg/dL (8.4-10.2); Total Bilirubin 0.7 mg/dL (0.2-1.3)
[2018-11-26 23:04] LABS: Potassium 5.5 mmol/L (3.5-5.1)
[2018-11-26 23:05] LABS: Creatine Kinase MB 4.3 ng/mL (0.0-2.4); Troponin I 0.015 ng/mL (0.000-0.034)
--- NOTE | 2018-11-27 03:12 | XR ---
EXAMINATION TYPE: XR chest 1V portable DATE OF EXAM: 11/26/2018 COMPARISON: 11/07/2018 HISTORY: Short of breath TECHNIQUE: Single frontal view of the chest is obtained. FINDINGS: There is some infiltrate in the left lower lobe. There is mild pulmonary congestion. There are chest leads. IMPRESSION: There is new left lower lobe pneumonia compared to old exam. New atelectasis right midlu ng compared to old exam. No heart failure seen.
[2018-11-27] MEDS ORDERED: ACETAMINOPHEN TAB 325 MG TAB PO PRN (05:01)
[2018-11-27] MEDS ORDERED: PIPERACILLIN-TAZOBACTAM 3.375 GM in SODIUM CHLORIDE 0.9% 100 ML IVPB STA (05:04)
[2018-11-27] MEDS ORDERED: LEVOFLOXACIN 750MG-D5W PMX 750 MG in DEXTROSE/WATER 1 150ML.BAG IVPB STA (05:09)
[2018-11-27] MEDS ORDERED: ALBUTEROL NEBULIZED 2.5 MG/3 ML INHALATION PRN (05:10)
[2018-11-27] MEDS ORDERED: LORazepam 1 MG TAB PO PRN (05:12)
[2018-11-27 07:19] LABS: Glucose,Whole Blood 319 mg/dL (75-99)
[2018-11-27] MEDS: IPRATROPIUM-ALBUTEROL 3 ML NEB INHALATION SCH ×4 (07:36→19:42)
[2018-11-27] MEDS: INSULIN ASPART 100 UNIT/ML 1 ML 10 ML VIAL SQ SCH ×5 (08:56→21:59)
[2018-11-27] MEDS ORDERED: HEPARIN SODIUM,PORCINE 5,000 UNIT/ML 1 ML VIAL SQ SCH (09:00)
[2018-11-27] MEDS ORDERED: FAMOTIDINE 20 MG TAB PO SCH ×2 (09:00→21:00)
[2018-11-27 12:11] LABS: Glucose,Whole Blood 328 mg/dL (75-99)
[2018-11-27] MEDS ORDERED: MAG HYDROX/AL HYDROX/SIMETH 30 ML CUP PO PRN (14:00)
[2018-11-27] MEDS ORDERED: BISMUTH SUBSALICYLATE 4,192 MG/240 ML BOTTLE PO PRN (14:00)
[2018-11-27] MEDS: ACETAMINOPHEN TAB 325 MG TAB PO SCH ×3 (15:13→22:03)
[2018-11-27] MEDS: LACTULOSE 20 GM/30 ML CUP PO PRN (15:14)
[2018-11-27] MEDS: PIPERACILLIN-TAZOBACTAM 3.375 GM in SODIUM CHLORIDE 0.9% 100 ML IVPB SCH ×2 (15:21→22:16)
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
[2018-11-27] MEDS: LORazepam 1 MG TAB PO PRN (17:10)
[2018-11-27 17:18] LABS: Glucose,Whole Blood 205 mg/dL (75-99)
[2018-11-27 20:51] LABS: Glucose,Whole Blood 135 mg/dL (75-99)
[2018-11-27] MEDS ORDERED: FUROSEMIDE 10 MG/ML 4 ML VIAL IV SCH (21:00)
[2018-11-27] MEDS: DOCUSATE 100 MG CAP PO SCH (21:59)
[2018-11-27] MEDS: risperiDONE 1 MG TAB PO SCH (22:00)
[2018-11-27] MEDS: ATORVASTATIN 20 MG TAB PO SCH (22:00)
[2018-11-27] MEDS: INSULIN DETEMIR 100 UNIT/ML 10 ML VIAL SQ SCH (22:00)
[2018-11-27] MEDS: TAMSULOSIN 0.4 MG CAP.ER.24H PO SCH (22:00)
[2018-11-27] MEDS: APIXABAN 2.5 MG TABLET PO SCH (22:00)
[2018-11-28] MEDS: LORazepam 1 MG TAB PO PRN ×4 (01:39→22:42)
[2018-11-28] MEDS: ACETAMINOPHEN TAB 325 MG TAB PO SCH ×6 (02:43→21:22)
[2018-11-28] MEDS ORDERED: LEVOFLOXACIN 750MG-D5W PMX 750 MG in DEXTROSE/WATER 1 150ML.BAG IVPB SCH (06:00)
[2018-11-28] MEDS: PIPERACILLIN-TAZOBACTAM 3.375 GM in SODIUM CHLORIDE 0.9% 100 ML IVPB SCH ×3 (06:25→22:39)
[2018-11-28] MEDS: LEVOTHYROXINE 88 MCG TAB PO SCH (06:28)
[2018-11-28] MEDS: IPRATROPIUM-ALBUTEROL 3 ML NEB INHALATION SCH ×4 (07:17→20:33)
[2018-11-28 07:39] LABS: Glucose,Whole Blood 226 mg/dL (75-99)
[2018-11-28] MEDS: INSULIN ASPART 100 UNIT/ML 1 ML 10 ML VIAL SQ SCH ×7 (08:09→21:24)
[2018-11-28] MEDS: APIXABAN 2.5 MG TABLET PO SCH ×2 (08:10→21:21)
[2018-11-28] MEDS: ASPIRIN 81 MG PO SCH (08:10)
[2018-11-28] MEDS: CITALOPRAM HYDROBROMIDE 20 MG TAB PO SCH (08:11)
[2018-11-28] MEDS: risperiDONE 1 MG TAB PO SCH ×2 (08:11→21:22)
[2018-11-28] MEDS: CYANOCOBALAMIN 500 MCG TAB PO SCH (08:11)
[2018-11-28] MEDS: FAMOTIDINE 20 MG TAB PO SCH (08:11)
[2018-11-28] MEDS: ATENOLOL 25 MG TAB PO SCH (08:11)
[2018-11-28] MEDS: buPROPion 75 MG TAB PO SCH (08:11)
[2018-11-28] MEDS: FLUTICASONE 50MCG/SPRAY NASAL 16GM EA NOSTRIL SCH (08:12)
[2018-11-28] MEDS: DOCUSATE 100 MG CAP PO SCH ×2 (08:12→21:22)
[2018-11-28 09:48] LABS: Calcium 8.7 mg/dL (8.4-10.2); Magnesium 2.4 mg/dL (1.6-2.3); Potassium 4.4 mmol/L (3.5-5.1)
--- NOTE | 2018-11-28 10:27 | P.CN ---
Psychiatric Consult - . Consult date: 11/28/18 Consult:: 11/27/18 15:26 anxiety Assessment and Plan Assessment: This patient is an 83-year-old man transferred here from detention to be evaluated for cough and shortness of breath. Patient states that this is been going on for 2-3 days. It was reported to me that the patient had received breathing treatment, solu-medrol, as well as Lasix, with not much change in his breathing. He was on nasal cannula oxygen there as well. It was reported that he had low pulse oximetry readings, and therefore was transferred for further evaluation here. The patient states that the shortness of breath and coughing has been getting worse over the past 2-3 days. He has had a little bit of white to yellow sputum. He denies chest pain. He denies change in urination or bowel movements. No leg pain or swelling. She is not aware of fever or chills. MD Complaint: shortness of breath, cough 11/28/2018 interview: Upon interviewing the patient turns out that he's had recurring anxiety hallucinations and depression that started 4 years ago. He has been for 60 years to the same woman has 3 children and 6 grandchildren. He states his is very supportive. He has a great deal amount of anxiety 8 out of 10 and depression 8 out of 10. He has a constant hallucination auditory nature of a man talking monotone-like on the radio in his ears. He has right sided blindness. He stated 4 years ago he was in the hospital hadn't vision auditory hallucination of a doctor nurse having a cigarette with 2 white dogs at the bedside. When he went to the pet the dog the dog disappeared. He also describes a maintenance trainer coming in to [employer] whereby he declined into the TV. He is a retired [employer] personnel from [place] whereby he went to [place] after the [place] War. He did not see significant trauma while he was there. 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 He appears to be a reliable historian with a significant amount of depression over the last 4 years. - Related Data Home Medications Medication Instructions Recorded Confirmed Atenolol [Tenormin] 25 mg PO DAILY 09/29/14 11/07/18 Citalopram Hydrobromide [CeleXA] 20 mg PO AC-SUPPER 09/29/14 11/07/18 Citalopram Hydrobromide 40 mg PO DAILY 09/29/14 11/07/18 [Citalopram HBr] Levothyroxine Sodium [Synthroid] 88 mcg PO DAILY 09/29/14 11/07/18 Multivitamins, Thera [Multivitamin 1 each PO DAILY 09/29/14 11/07/18 (formulary)] Omeprazole [PriLOSEC] 20 mg PO BID 09/29/14 11/07/18 Restaisi(Dose Unknown) 1 drop BOTH EYES BID 09/29/14 11/07/18 Simvastatin [Zocor] 40 mg PO HS 09/29/14 11/07/18 Tamsulosin HCl [Flomax] 0.4 mg PO DAILY 09/29/14 11/07/18 Cyanocobalamin [Vitamin B-12] 500 mcg PO DAILY 11/07/18 11/07/18 Diphenox-Atrop 2.5-0.025 mg 1 tab PO Q4-6H PRN 11/07/18 11/07/18 [Lomotil] Loratadine [Claritin] 10 mg PO DAILY 11/07/18 11/07/18 Tamsulosin HCl [Flomax] 0.4 mg PO HS 11/07/18 11/07/18 Vit C/E/Zn/Coppr/Lutein/Zeaxan 1 cap PO BID 11/07/18 11/07/18 [Preservision Areds 2 Softgel] Previous Rx's Medication Instructions Recorded Amoxicillin 1,000 mg PO Q8HR 7 Days #42 cap 11/18/18 Apixaban [Eliquis] 2.5 mg PO BID tablet 11/18/18 Aspirin 81 mg PO DAILY chew 11/18/18 Docusate [Colace] 100 mg PO BID cap 11/18/18 Insulin Aspart [NovoLOG 0 unit SQ ACHS vial 11/18/18 (formulary)] Insulin Aspart [NovoLOG 5 unit SQ AC-TID vial 11/18/18 (formulary)] Insulin Detemir [Levemir] 20 unit SQ HS syr 11/18/18 LORazepam [Ativan] 1 mg PO TID PRN #9 tab 11/18/18 Lactulose [Cephulac] 15 gm PO TID PRN ml 11/18/18 Temazepam [Restoril] 15 mg PO HS 3 Days #3 cap 11/18/18 amLODIPine [Norvasc] 10 mg PO DAILY tab 11/18/18 hydrALAZINE HCL [Apresoline] 100 mg PO TID tab 11/18/18 risperiDONE [RisperDAL] 1 mg PO BID 3 Days #6 tab 11/18/18 Allergies Allergy/AdvReac Type Severity Reaction Status Date / Time No Known Allergies Allergy Verified 11/26/18 22:06 Past Medical History Past Medical History: Coronary Artery Disease (CAD), Cancer, Diabetes Mellitus, GERD/Reflux, Hyperlipidemia, Hypertension, Myocardial Infarction (HI), Pneumonia , Prostate Disorder, Sleep Apnea/CPAP/BIPAP, Thyroid Disorder Additional Past Medical History / Comment(s): no CPAP used, hiatal hernia, hx thyroid cancer, macular degeneration danielle eyes Last Myocardial Infarction Date:: 1999 History of Any Multi-Drug Resistant Organisms: None Reported Past Surgical History: Heart Catheterization With Stent, Joint Replacement Additional Past Surgical History / Comment(s): left knee replacement, danielle cataracts, thyroidectomy Past Anesthesia/Blood Transfusion Reactions: No Reported Reaction Additional Past Anesthesia/Blood Transfusion Reaction / Comment(s): clausterphobia -"uses open mri" Date of Last Stent Placement:: 1999 Past Psychological History: Anxiety, Depression, Schizophrenia Smoking Status: Former smoker - Past Family History Father Family Medical History: Cancer Mother Family Medical History: Cancer Mental Status Examination - General Appearance: [ casual, bizarre, appears stated age Speech/Language: [slow, soft] Attitude/Behavior: [cooperative Mood: [ depressed 8 out of 10, anxious 8 out of 10, fearful, hopelessness] Affect: [ flat, blunted constricted] Orientation: [time, person, place situation] Thought Content: [Somatic delusions, obsessions Risk Factors: [Recently within the last 4 days suicidal (ideations, plan), not and/or Homicidal (ideations, plan), other] Perception: [ hallucinations (auditory monotone man speaking liked on a radio] Thought Processes: [goal-oriented Concentration/Attention Span: [wnl] [Per observation and interview with the patient] Recent Memory: [wnl] [0, 1, 2 or 3 out of 3 in 3 minutes] Remote Memory: [wnl [past events, as related history] Intelligence: [below average, average, above average] [based on history, based on vocabulary, syntax, grammar, and content] Judgement: [ fair] [per patient's behavior/history of present illness] Insight: [ fair] [understanding severity of illness/history of present illness 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 Concerned that he has had suicidal thoughts within the last week. He was discharged from here went to [facility] and then came back with somatic complaints as well. He might benefit from changing his antidepressant from 2-1 which would be Zoloft titrating his dose of and more aggressive on treating his psychosis which seems to trigger his phobia and his anxiety. It appears most listed being driven by his depression and anxiety and psychosis and as mentioned would benefit from a more efficient antidepressant such as Zoloft with increasing his risperidone until resolution of symptoms. Evaluating his MRI of 2017 reveals significant hypodensity over third and fourth branch the middle cerebral artery resulting and degeneration of hippocampal CA2 region which is due to his underlying cardiovascular disease versus cerebrovascular disease. 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 PhD ] (1) Major depressive disorder with psychotic features Current Visit: Yes Status: Acute Code(s): F32.3 - MAJOR DEPRESSV DISORD, SINGLE EPSD, SEVERE W PSYCH FEATURES SNOMED Code(s): 28184276 Time with Patient: Greater than 30
[2018-11-28 12:07] LABS: Glucose,Whole Blood 213 mg/dL (75-99)
--- NOTE | 2018-11-28 14:19 | CONS ---
CONSULTATION REASON FOR CONSULT: Renal failure. HISTORY OF PRESENT ILLNESS: Patient is an 83-year-old male with history of hypertension, hyperlipidemia, coronary artery disease. He was admitted to the hospital yesterday with complaints of shortness of breath, possibly related to anxiety. Patient did have minimal cough and chest x-ray showed left lower lobe pneumonia. Patient is maintained on antibiotics. He did have urine retention on his previous admission in October and a Lamas catheter was placed at that time. The Lamas catheter was just removed and patient states he has been voiding okay. His serum creatinine was 1.9 on 11/26/2018, and it is at 2.1 today. Previous creatinine has been about 1.4, lowest on 11/11/2018 and it peaked at about 2.4 mg/dL. Patient's blood pressure is not low. At home he is maintained on loop diuretics. Patient was not on any nonsteroidal anti-inflammatory agents. I do not see any autumn inhibitors on his home med list. PAST MEDICAL HISTORY: Significant for hypertension, hyperlipidemia, type 2 diabetes, coronary artery disease. Previous history of pneumonia, BPH, obstructive sleep apnea, hypothyroidism, and new onset AFib in October, history of thyroid cancer, macular degeneration. PAST SURGICAL HISTORY: Cardiac catheterization, coronary stent placement, left knee arthroplasty, bilateral cataract surgery, thyroidectomy, colonoscopies, epidural injections. SOCIAL HISTORY: Patient is a former smoker. No history of drug abuse or alcohol abuse. MEDICATIONS: At home prior to admission included Celexa, Synthroid, Prilosec, Zocor, Flomax, B12, Eliquis, aspirin, Colace, Ativan, Norvasc, hydralazine, Risperdal, Tylenol, Lasix, insulin, Claritin, Wellbutrin, melatonin. ALLERGIES: None. REVIEW OF SYSTEMS: As per HPI. Other systems negative. PHYSICAL EXAMINATION: Patient is comfortable, awake, not in any acute distress. Blood pressure was 137/66, heart rate 70 per minute. Patient is afebrile. Examination of the heart, S1, S2. Examination of the lungs, bilateral breath sounds are heard. Abdomen is soft, nontender. Examination of the lower extremities shows no significant edema. 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 LABS: Show sodium 141, potassium 4.4, chloride 110, BUN 57, serum creatinine 2.19, magnesium 2.4 mg/dL. ASSESSMENT: 1. Acute kidney injury from last admission with serum creatinine decreasing to about 1.9 to 2 mg/dL from peak of 2.45. Patient had urine retention at that time. He had a Lmaas catheter placed, which is now removed. Patient states he is voiding. We need to do frequent bladder scans to rule out urine retention. I will check a urinalysis this admission. 2. Chronic kidney disease stage IV with baseline creatinine about 1.4 to 1.9 mg/dL. Recently it has been higher. 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 Patient did have 2+ protein on his previous urinalysis. Protein creatinine ratio is about 2.4 from protein creatinine ratio done on 11/16/2018. PLAN: Check postvoid residuals, check urinalysis. Continue with Flomax. Continue off of Lasix for now. Repeat labs in a.m. Thank you for this consultation. Will continue to follow the patient with you during his hospitalization. MMODL / IJN: [id number] /
[2018-11-28 14:25] LABS: Appearance,Urine Turbid (Clear); Bilirubin,Urine Negative (Negative); Blood,Urine Moderate (Negative); Color,Urine Yellow; Glucose,Urine (UA) Negative (Negative); Ketones,Urine Negative (Negative); Leukocyte Esterase,Urine Negative (Negative); Nitrite,Urine Negative (Negative); PH, Urine 5.5 (5.0-8.0); Protein,Urine 2+ (Negative); RBC,Urine 67 /hpf (0-5); Specific Gravity,Urine 1.014 (1.001-1.035); Uric Acid Crystals,Urine Many /hpf; Urobilinogen,Urine <2.0 mg/dL (<2.0); WBC,Urine 1 /hpf (0-5)
--- NOTE | 2018-11-28 15:02 | P.DS ---
Providers Date of admission: 11/27/18 02:18 Expected date of discharge: 11/28/18 Attending physician: Abdiel Elam Consults: 11/27/18 13:55 Consult Physician Urgent Consulting Provider: Sabrina Sauer Consult Reason/Comments: kidney injury Do you want consulting provider notified?: Yes 11/27/18 15:04 Consult Physician Urgent Consulting Provider: Emre Espana Consult Reason/Comments: anxiety Do you want consulting provider notified?: Yes Primary care physician: [facility] Course: final Diagnoses: -possibility of healthcare associated pneumonia left lower lobe,low suspicion. patient's symptomatology appears to be from anxiety disorder -congestive heart failure chronic diastolic dysfunction ,doubt acute exacerbation. -major depressive disorder -Recent stroke with some mild residual weakness in the right hand. 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 Patient appears to be mostly anxiety and patient when questioned clearly he is quite a bit anxious and he is quite a bit claustrophobic which was his main concern. Patient also has minimal cough with white to yellowish sputum production chest x-ray was read as left lower lobe pneumonia because of which patient was admitted for healthcare associated pneumonia patient was given Zosyn and levofloxacin. Patient doesn't have any fevers does have mild leukocytosis clinically doesn't appear to have pneumonia although Zosyn will be continued levofloxacin will be discontinued patient was believed to have heart failure as well although patient has some peripheral edema mild pitting patient doesn't have any other signs of CHF patient doesn't have any JVD no crackles on exam. I do not believe patient is in CHF exacerbation patient that creatinine is 1.9 baseline appears to be around 2.1 during his last hospitalization. Patient is probably more anxious rather than having pneumonia CHF ,cannot completely rule out pneumonia,therefore we'll continue antibiotics. IV diuretics discontinued with further diuretics as per nephrology. evaluated by psychiatry with inpatient mental health unit recommended,given his suicidal thoughts over the last week,daily hallucinations.Dr. Espana met with family and patient-17 to inpatient mental health rehab. patient has been cleared by all consults for discharge. Patient will be discharge to mental health unit in a stable condition with guarded prognosis. EXAMINATION: GENERAL: The patient is alert and oriented x3, not in any acute distress. CARDIOVASCULAR: S1 and S2 present. No murmurs, rubs, or gallops. PULMONARY: Chest is clear to auscultation, no wheezing or crackles. ABDOMEN: Soft, nontender, nondistended, normoactive bowel sounds. NEUROLOGICAL: Gross neurological examination did not reveal any focal deficits. The impression and plan of care has been dictated as directed. : I performed a history and examination of this patient, discussed the same with the dictator. I agree with the dictator's note ,documented as a scribe. Any additional findings or plans will be noted. Time taken: 35 minutes Patient Condition at Discharge: Stable Plan - Discharge Summary Discharge Rx Participant: No New Discharge Prescriptions: New Amoxicillin/Potassium Clav [Augmentin 875-125 Tablet] 1 tab PO Q12HR #10 tab INSULIN LISPRO (HumaLOG) [humaLOG] 0 unit SQ ACHS #1 vial Ipratropium/Albuterol Sulfate [Combivent Respimat Inhaler] 2 puff INHALATION QID #1 inhaler Continue Citalopram Hydrobromide [Citalopram HBr] 40 mg PO DAILY Simvastatin [Zocor] 40 mg PO HS Omeprazole [PriLOSEC] 20 mg PO BID Levothyroxine Sodium [Synthroid] 88 mcg PO DAILY Atenolol [Tenormin] 25 mg PO DAILY Restaisi(Dose Unknown) 1 drop BOTH EYES BID Multivitamins, Thera [Multivitamin (formulary)] 1 each PO DAILY Tamsulosin HCl [Flomax] 0.4 mg PO HS Cyanocobalamin [Vitamin B-12] 500 mcg PO DAILY Vit C/E/Zn/Coppr/Lutein/Zeaxan [Preservision Areds 2 Softgel] 1 cap PO BID Apixaban [Eliquis] 2.5 mg PO BID tablet Aspirin 81 mg PO DAILY chew Docusate [Colace] 100 mg PO BID cap Insulin Aspart [NovoLOG (formulary)] 5 unit SQ AC-TID vial Lactulose [Cephulac] 15 gm PO TID PRN ml PRN Reason: Constipation risperiDONE [RisperDAL] 1 mg PO BID 3 Days #6 tab LORazepam [Ativan] 1 mg PO TID PRN #9 tab PRN Reason: Anxiety Mag Hydrox/Al Hydrox/Simeth [Maalox] 30 ml PO Q4H Bismuth Subsalicylate [Kaopectate] 262 mg PO Q4H Insulin Aspart [NovoLOG] See Protocol SQ DIRECTED buPROPion [Wellbutrin] 150 mg PO DAILY Melatonin 3 mg PO HS Loratadine [Claritin] 10 mg PO DAILY Insulin Detemir [Levemir] 20 unit SQ HS Fluticasone Nasal [place] [Flonase Nasal [place]] 2 spray EA NOSTRIL DAILY Acetaminophen [Tylenol] 650 mg PO Q4H Discontinued amLODIPine [Norvasc] 10 mg PO DAILY tab hydrALAZINE HCL [Apresoline] 100 mg PO TID tab Furosemide [Lasix] 40 mg PO DAILY Furosemide [Lasix] 40 mg PO DAILY Discharge Medication List Atenolol [Tenormin] 25 mg PO DAILY 09/29/14 [History] Citalopram Hydrobromide [Citalopram HBr] 40 mg PO DAILY 09/29/14 [History] Levothyroxine Sodium [Synthroid] 88 mcg PO DAILY 09/29/14 [History] Multivitamins, Thera [Multivitamin (formulary)] 1 each PO DAILY 09/29/14 [ History] Omeprazole [PriLOSEC] 20 mg PO BID 09/29/14 [History] Restaisi(Dose Unknown) 1 drop BOTH EYES BID 09/29/14 [History] Simvastatin [Zocor] 40 mg PO HS 09/29/14 [History] Cyanocobalamin [Vitamin B-12] 500 mcg PO DAILY 11/07/18 [History] Tamsulosin HCl [Flomax] 0.4 mg PO HS 11/07/18 [History] Vit C/E/Zn/Coppr/Lutein/Zeaxan [Preservision Areds 2 Softgel] 1 cap PO BID 11/07 [History] Apixaban [Eliquis] 2.5 mg PO BID tablet 11/18/18 [Rx] Aspirin 81 mg PO DAILY chew 11/18/18 [Rx] Docusate [Colace] 100 mg PO BID cap 11/18/18 [Rx] Insulin Aspart [NovoLOG (formulary)] 5 unit SQ AC-TID vial 11/18/18 [Rx] LORazepam [Ativan] 1 mg PO TID PRN #9 tab 11/18/18 [Rx] Lactulose [Cephulac] 15 gm PO TID PRN ml 11/18/18 [Rx] risperiDONE [RisperDAL] 1 mg PO BID 3 Days #6 tab 11/18/18 [Rx] Acetaminophen [Tylenol] 650 mg PO Q4H 11/26/18 [History] Bismuth Subsalicylate [Kaopectate] 262 mg PO Q4H 11/26/18 [History] Fluticasone Nasal [place] [Flonase Nasal [place]] 2 spray EA NOSTRIL DAILY 11/26/18 [History] Insulin Aspart [NovoLOG] See Protocol SQ DIRECTED 11/26/18 [History] Insulin Detemir [Levemir] 20 unit SQ HS 11/26/18 [History] Loratadine [Claritin] 10 mg PO DAILY 11/26/18 [History] Mag Hydrox/Al Hydrox/Simeth [Maalox] 30 ml PO Q4H 11/26/18 [History] Melatonin 3 mg PO HS 11/26/18 [History] buPROPion [Wellbutrin] 150 mg PO DAILY 11/26/18 [History] Amoxicillin/Potassium Clav [Augmentin 875-125 Tablet] 1 tab PO Q12HR #10 tab 09/06 [Rx] INSULIN LISPRO (HumaLOG) [humaLOG] 0 unit SQ ACHS #1 vial 11/28/18 [Rx] Ipratropium/Albuterol Sulfate [Combivent Respimat Inhaler] 2 puff INHALATION QID #1 inhaler 11/28/18 [Rx] Follow up Appointment(s)/Referral(s): [facility] Parker MD [Primary Care Provider] - 3 Days (at sub acute rehab) Emre Espana DO [Doctor of Osteopathic Medicine] - 1-2 Days Ambulatory/Diagnostic Orders: Complete Blood Count w/diff [LAB.AMB] Time Frame: 3 Days, Location: None Selected Activity/Diet/Wound Care/Special Instructions: diuretics as per nephrology CBC,bmp in am DIet: COnsist. carb Accu-Cheks before meals and at bedtime PT/OT
[2018-11-28 17:26] LABS: Glucose,Whole Blood 221 mg/dL (75-99)
[2018-11-28 20:52] LABS: Glucose,Whole Blood 174 mg/dL (75-99)
[2018-11-28] MEDS: ATORVASTATIN 20 MG TAB PO SCH (21:21)
[2018-11-28] MEDS: TAMSULOSIN 0.4 MG CAP.ER.24H PO SCH (21:22)
[2018-11-28] MEDS: INSULIN DETEMIR 100 UNIT/ML 10 ML VIAL SQ SCH (21:24)
[2018-11-29] MEDS: ACETAMINOPHEN TAB 325 MG TAB PO SCH ×6 (01:26→21:10)
[2018-11-29] MEDS: PIPERACILLIN-TAZOBACTAM 3.375 GM in SODIUM CHLORIDE 0.9% 100 ML IVPB SCH ×3 (06:13→21:11)
[2018-11-29] MEDS: LEVOTHYROXINE 88 MCG TAB PO SCH (06:13)
[2018-11-29] MEDS: IPRATROPIUM-ALBUTEROL 3 ML NEB INHALATION SCH ×4 (07:29→20:27)
[2018-11-29] MEDS: risperiDONE 1 MG TAB PO SCH ×2 (07:37→20:19)
[2018-11-29] MEDS: FAMOTIDINE 20 MG TAB PO SCH (07:37)
[2018-11-29] MEDS: DOCUSATE 100 MG CAP PO SCH ×2 (07:37→20:18)
[2018-11-29] MEDS: ASPIRIN 81 MG PO SCH (07:37)
[2018-11-29] MEDS: CITALOPRAM HYDROBROMIDE 20 MG TAB PO SCH (07:37)
[2018-11-29] MEDS: CYANOCOBALAMIN 500 MCG TAB PO SCH (07:38)
[2018-11-29] MEDS: LORazepam 1 MG TAB PO PRN ×3 (07:38→23:24)
[2018-11-29] MEDS: ATENOLOL 25 MG TAB PO SCH (07:38)
[2018-11-29] MEDS: APIXABAN 2.5 MG TABLET PO SCH ×2 (07:38→20:18)
[2018-11-29 07:40] LABS: Glucose,Whole Blood 150 mg/dL (75-99)
[2018-11-29] MEDS: INSULIN ASPART 100 UNIT/ML 1 ML 10 ML VIAL SQ SCH ×7 (07:41→20:33)
[2018-11-29] MEDS: FLUTICASONE 50MCG/SPRAY NASAL 16GM EA NOSTRIL SCH (07:45)
[2018-11-29] MEDS: buPROPion 75 MG TAB PO SCH (08:26)
[2018-11-29 09:20] LABS: Calcium 8.6 mg/dL (8.4-10.2); Potassium 4.4 mmol/L (3.5-5.1)
[2018-11-29 11:53] LABS: Glucose,Whole Blood 95 mg/dL (75-99)
--- NOTE | 2018-11-29 12:27 | XR ---
EXAMINATION TYPE: XR chest 1V portable DATE OF EXAM: 11/29/2018 COMPARISON: 11/26/2018 HISTORY: Shortness of breath TECHNIQUE: Single frontal view of the chest is obtained. FINDINGS: The lungs are hypoventilatory with mild interstitial pulmonary edema. There is a left garth hilar opacity and platelike right midlung atelectasis. Right hemidiaphragm elevation is seen secondar y to the right sided atelectasis. There is blunting of the left costophrenic angle and partial obscur ation of the left hemidiaphragm. Cardia mediastinal silhouette is mildly enlarged. IMPRESSION: Interstitial edema accentuated by low lung volumes, right midlung atelectasis, and small left pleural effusion with left basilar atelectasis. Suspicion is for cardiogenic fluid overload how ever superimposed left perihilar pneumonia remains possible. Follow-up to resolution.
--- NOTE | 2018-11-29 14:37 | XR ---
2 view abdomen HISTORY: Abdominal distention 2 views of the abdomen on 3 images There are air-fluid levels present without bowel distention. Lung bases show atelectatic changes. No pneumoperitoneum. No pathologic calcification evident. Degenerative disc changes in the visualized sp ine. Probable vascular calcifications noted within the pelvis. IMPRESSION: There may be underlying ileus or enteritis, follow-up as indicated if obstruction is susp ected clinically. Additional findings above.
[2018-11-29] MEDS ORDERED: IPRATROPIUM-ALBUTEROL 3 ML NEB INHALATION PRN (14:38)
[2018-11-29] MEDS: predniSONE 20 MG TAB PO SCH (15:20)
[2018-11-29] MEDS: LACTULOSE 20 GM/30 ML CUP PO SCH ×2 (15:20→21:11)
[2018-11-29 15:33] LABS: ABG Base Excess -0.4 mmol/L; ABG HCO3 25 mmol/L (21-25); ABG PCO2 45 mmHg (35-45); ABG PH 7.35 (7.35-7.45); ABG PO2 75 mmHg (83-108)
[2018-11-29 15:36] LABS: ABG Oxygen Saturation 95.7 % (94-97)
[2018-11-29 17:29] LABS: Glucose,Whole Blood 103 mg/dL (75-99)
--- NOTE | 2018-11-29 17:41 | PN ---
PROGRESS NOTE Patient is seen for followup for chronic kidney disease. Renal function and has been stable since October with creatinine at 1.9 to 2 mg/dL. His creatinine was lower at 1.4 to 1.6 previously. Patient had urine retention, for which he had an indwelling Lamas catheter which is now removed. He is currently lying in bed. He is comfortable. He denies any significant complaints. Patient was admitted to the hospital with complaints of shortness of breath and anxiety. He was diuresed initially. Lasix is currently held. He is also maintained on antibiotics for possible pneumonia. PHYSICAL EXAMINATION: On examination today, blood pressure was 145/61, heart rate 74 per minute. Patient is afebrile. EXAMINATION OF THE HEART: S1, S2. EXAMINATION OF LUNGS: Bilateral breath sounds are heard. ABDOMEN: Soft, non-tender. Examination of lower extremities shows no evidence of edema. SERVICES ACCOUNT MANAGER exam is grossly intact. LABS: Sodium 141, potassium 4.4, chloride 112, BUN 49, serum creatinine 1.98. ASSESSMENT: 1. Chronic kidney disease, NKF stage IV, with serum creatinine baseline at about 1.9; however, it has been as low as 1.4 earlier part of October of 2018. Patient had urine retention in October. His Lamas catheter has now been removed and he has been voiding on his own. 2. Pneumonia, maintained on antibiotics. 3. History of benign prostatic hypertrophy. 4. Chronic kidney disease secondary to diabetic nephropathy, NKF stage IV. 5. Anxiety. Patient was evaluated by Psychiatry and was diagnosed with major depressive disorder with psychotic features. PLAN: Continue to encourage increased oral intake. Monitor postvoidal residual periodically. Continue to avoid nephrotoxic agents. Continue with Flomax. MMODL / IJN: [id number] /
[2018-11-29] MEDS: ATORVASTATIN 20 MG TAB PO SCH (20:18)
[2018-11-29] MEDS: TAMSULOSIN 0.4 MG CAP.ER.24H PO SCH (20:19)
[2018-11-29 20:21] LABS: Glucose,Whole Blood 160 mg/dL (75-99)
[2018-11-29] MEDS: INSULIN DETEMIR 100 UNIT/ML 10 ML VIAL SQ SCH (20:48)
--- NOTE | 2018-11-29 20:57 | P.PN ---
Subjective Progress Note Date: 11/29/18 Prognosis note being dictated for Dr. Elam Interval history: this is a 83-year-old recently [facility] came back with symptoms shortness of breath. Patient appears to be mostly anxiety and patient when questioned clearly he is quite a bit anxious and he is quite a bit claustrophobic which was his main concern. Patient also has minimal cough with white to yellowish sputum production chest x-ray was read as left lower lobe pneumonia because of which patient was admitted for healthcare associated pneumonia patient was given Zosyn and levofloxacin. Patient doesn't have any fevers does have mild leukocytosis clinically doesn't appear to have pneumonia although Zosyn will be continued levofloxacin will be discontinued patient was believed to have heart failure as well although patient has some peripheral edema mild pitting patient doesn't have any other signs of CHF patient doesn't have any JVD no crackles on exam. I do not believe patient is in CHF exacerbation patient that creatinine is 1.9 baseline appears to be around 2.1 during his last hospitalization. Patient is probably more anxious rather than having pneumonia CHF ,cannot completely rule out pneumonia, therefore we'll continue antibiotics. IV diuretics discontinued with further diuretics as per nephrology. evaluated by psychiatry with inpatient mental health unit recommended,given his suicidal thoughts over the last week,daily hallucinations. 11/29/2018 discharged to mental health unit placed on hold yesterday as patient developed hypoxic respiratory failure requiring BiPAP. Objective - Vital Signs Vital signs: Vital Signs Temp 97.2 F L 11/29/18 07:44 Pulse 72 11/29/18 11:26 Resp 22 11/29/18 08:00 BP 167/94 11/29/18 07:44 Pulse Ox 91 L 11/29/18 07:44 Intake & Output 11/28/18 11/29/18 11/29/18 18:59 06:59 18:59 Intake Total 200 Balance 200 Intake: Oral 200 Other: Voiding Method Urinal Urinal Urinal # Voids 2 2 - Exam GENERAL: The patient is alert and oriented x3, not in any acute distress.anxious. HEENT: Pupils are round and equally reacting to light. EOMI. No scleral icterus. No conjunctival pallor. Normocephalic, atraumatic. CARDIOVASCULAR: S1 and S2 present. No murmurs, rubs, or gallops. PULMONARY: Chest is clear to auscultation, no wheezing or crackles. ABDOMEN: Soft, nontender, mildly distended, normoactive bowel sounds. No palpable organomegaly. MUSCULOSKELETAL: No joint swelling or deformity. EXTREMITIES: No cyanosis, clubbing, very minimal diffuse edema NEUROLOGICAL: Gross neurological examination did not reveal any focal deficits. SKIN: No rashes. - Labs CBC & Chem 7: 11/26/18 22:04 11/29/18 08:09 Labs: Abnormal Lab Results - Last 24 Hours (Table) 11/28/18 11/28/18 11/29/18 Range/Units 17:15 20:51 07:32 Chloride (98-107) mmol/L BUN (9-20) mg/dL Creatinine (0.66-1.25) mg/dL Glucose (74-99) mg/dL POC Glucose (mg/dL) 221 H 174 H 150 H (75-99) mg/dL 11/29/18 Range/Units 08:09 Chloride 112 H (98-107) mmol/L BUN 49 H (9-20) mg/dL Creatinine 1.98 H (0.66-1.25) mg/dL Glucose 136 H (74-99) mg/dL POC Glucose (mg/dL) (75-99) mg/dL Assessment and Plan Assessment: -Acute hypoxic respiratory failure multifactorial, possibly acute on chronic CHF -diastolic dysfunction, possibly healthcare associated pneumonia left lower lobe , anxiety. -major depressive disorder -Recent stroke with some mild residual weakness in the right hand. -Paroximal Atrial fibrillation,currently sinus rhythm -acute on Chronic kidney disease stage 4 -Type 2 diabetes mellitus -History of thyroid cancer,hypothyroid -Essential hypertension -gastric esophageal reflux disease -anxiety and depression. Evaluated by psychiatry, diagnosed with major depressive disorder with psychotic features. Plan: Continue on current medication regime , Flomax, monitoring and symptomatic treatment. Pulmonary consulted. ABGs, chest x-ray, abdominal x- ray ordered. Lactulose, prednisone added to medication regime. Maintain nebulized bronchodilators, antibiotics, BiPAP as needed. No suicidal ideation at this time. Yesterday Dr. Espana apparantly informed nurses that patient did not require suicide precautions while waiting for a bed in mental health unit. Discussed with charge nurse, the need to obtain official order from psychiatry. The impression and plan of care has been dictated as directed. : I performed a history and examination of this patient, discussed the same with the dictator. I agree with the dictator's note ,documented as a scribe. Any additional findings or plans will be noted.
--- NOTE | 2018-11-29 21:12 | P.PN ---
Progress Note - Text Progress Note Date: 11/29/18 Discovered that this patient's primary care physician is Dr. Plaza. [facility] notified and accepted patient. Patient will be transferred to their services. Admitting and attending changed to Dr. Plaza.
[2018-11-30] MEDS: ACETAMINOPHEN TAB 325 MG TAB PO SCH ×6 (01:47→21:03)
[2018-11-30] MEDS: LORazepam 1 MG TAB PO PRN ×2 (05:14→22:25)
[2018-11-30 06:01] LABS: Glucose,Whole Blood 203 mg/dL (75-99)
[2018-11-30] MEDS: ONDANSETRON 4 MG/2 ML VIAL IVP PRN (06:07)
[2018-11-30] MEDS: PIPERACILLIN-TAZOBACTAM 3.375 GM in SODIUM CHLORIDE 0.9% 100 ML IVPB SCH ×3 (06:20→21:10)
[2018-11-30] MEDS: LEVOTHYROXINE 88 MCG TAB PO SCH (06:26)
[2018-11-30] MEDS: INSULIN ASPART 100 UNIT/ML 1 ML 10 ML VIAL SQ SCH ×7 (06:26→21:03)
[2018-11-30 07:26] LABS: Basophils % (A) 0 %; Eosinophils % (A) 0 %; HCT 31.9 % (39.0-53.0); HGB 9.7 gm/dL (13.0-17.5); Hypochromasia Moderate; Lymphocytes # (A) 0.9 k/uL (1.0-4.8); Lymphocytes % (A) 11 %; MCH 31.8 pg (25.0-35.0); MCHC 30.5 g/dL (31.0-37.0); Macrocytosis Slight; Mean Platelet Volume 6.6; Monocytes # (A) 0.5 k/uL (0-1.0); Monocytes % (A) 7 %; Neutrophils # (A) 6.4 k/uL (1.3-7.7); Neutrophils % (A) 81 %; Platelet Count 335 k/uL (150-450); RBC 3.07 m/uL (4.30-5.90); RDW 13.6 % (11.5-15.5); WBC 7.9 k/uL (3.8-10.6)
[2018-11-30] MEDS: FLUTICASONE 50MCG/SPRAY NASAL 16GM EA NOSTRIL SCH (07:30)
[2018-11-30 07:56] LABS: Calcium 8.4 mg/dL (8.4-10.2); Potassium 4.6 mmol/L (3.5-5.1)
[2018-11-30] MEDS: IPRATROPIUM-ALBUTEROL 3 ML NEB INHALATION SCH ×4 (08:39→19:47)
[2018-11-30] MEDS: ATENOLOL 25 MG TAB PO SCH (09:14)
[2018-11-30] MEDS: CITALOPRAM HYDROBROMIDE 20 MG TAB PO SCH (09:14)
[2018-11-30] MEDS: buPROPion 75 MG TAB PO SCH (09:14)
[2018-11-30] MEDS: APIXABAN 2.5 MG TABLET PO SCH ×2 (09:14→21:02)
[2018-11-30] MEDS: ASPIRIN 81 MG PO SCH (09:14)
[2018-11-30] MEDS: CYANOCOBALAMIN 500 MCG TAB PO SCH (09:14)
[2018-11-30] MEDS: DOCUSATE 100 MG CAP PO SCH ×2 (09:15→20:55)
[2018-11-30] MEDS: FAMOTIDINE 20 MG TAB PO SCH (09:15)
[2018-11-30] MEDS: LACTULOSE 20 GM/30 ML CUP PO SCH ×3 (09:15→20:22)
[2018-11-30] MEDS: risperiDONE 1 MG TAB PO SCH ×2 (09:16→21:03)
[2018-11-30] MEDS: predniSONE 20 MG TAB PO SCH (09:16)
--- NOTE | 2018-11-30 10:33 | P.PN ---
Subjective Patient is seen in follow-up for acute kidney injury on chronic any disease. 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 Creatinine was near 1.4 in October 2018. It is 1.70 today. Patient admits to good urine output. No vomiting or diarrhea. No significant cough. Vital signs are stable. General: The patient appeared well nourished and normally developed. HEENT: Head exam is unremarkable. Neck is without jugular venous distension. LUNGS: Lungs are clear to auscultation and percussion. Breath sounds decreased. HEART: Rate and Rhythm are regular. First and second heart sounds normal. No murmurs, rubs or gallops. ABDOMEN: Abdominal exam reveals normal bowel sounds. Non-tender and non- distended. No evidence of peritonitis. EXTREMITITES: No clubbing, cyanosis, or edema. Objective - Vital Signs Vital signs: Vital Signs Temp 98.9 F 11/30/18 08:00 Pulse 80 11/30/18 08:55 Resp 18 11/30/18 08:00 BP 171/74 11/30/18 08:00 Pulse Ox 90 L 11/30/18 08:00 Intake & Output 11/29/18 11/30/18 11/30/18 18:59 06:59 18:59 Intake Total 240 400 Output Total 200 230 Balance 40 170 Weight 97.5 kg 97.1 kg Intake: Oral 240 400 Output: Urine 200 230 Other: Voiding Method Urinal Urinal # Voids 1 # Bowel Movements 1 1 - Labs CBC & Chem 7: 11/30/18 06:53 11/30/18 06:53 Labs: Abnormal Lab Results - Last 24 Hours (Table) 11/29/18 11/29/18 11/29/18 Range/Units 15:20 17:21 20:19 RBC (4.30-5.90) m/uL Hgb (13.0-17.5) gm/dL Hct (39.0-53.0) % MCV (80.0-100.0) fL MCHC (31.0-37.0) g/dL Lymphocytes # (1.0-4.8) k/uL ABG pO2 75 L (83-108) mmHg Chloride (98-107) mmol/L BUN (9-20) mg/dL Creatinine (0.66-1.25) mg/dL Glucose (74-99) mg/dL POC Glucose (mg/dL) 103 H 160 H (75-99) mg/dL 11/30/18 11/30/18 11/30/18 Range/Units 05:59 06:53 06:53 RBC 3.07 L (4.30-5.90) m/uL Hgb 9.7 L (13.0-17.5) gm/dL Hct 31.9 L (39.0-53.0) % MCV 104.0 H (80.0-100.0) fL MCHC 30.5 L (31.0-37.0) g/dL Lymphocytes # 0.9 L (1.0-4.8) k/uL ABG pO2 (83-108) mmHg Chloride 113 H (98-107) mmol/L BUN 43 H (9-20) mg/dL Creatinine 1.70 H (0.66-1.25) mg/dL Glucose 181 H (74-99) mg/dL POC Glucose (mg/dL) 203 H (75-99) mg/dL Assessment and Plan Plan: Assessment: 1. Chronic kidney disease stage IIIB/4 secondary to diabetic kidney disease with baseline creatinine now near 1.7-1.9. It was 1.4 in October 2018. 2. History of urinary retention. Currently does not have a Lamas catheter. 3. Pneumonia maintained on antibiotics. 4. BPH maintained on Flomax. 5. Diabetes mellitus. 6. Benign hypertension. Blood pressures on the higher side. Partially related to steroids. Plan: Add hydralazine 25 mg 3 times daily. Encourage oral intake. Avoid nephrotoxins.
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
[2018-11-30] MEDS: hydrALAZINE HCL 25 MG TAB PO SCH ×3 (11:50→21:10)
[2018-11-30 12:26] LABS: Glucose,Whole Blood 119 mg/dL (75-99)
--- NOTE | 2018-11-30 12:59 | P.PN ---
Subjective Progress Note Date: 11/30/18 Interval history: this is a 83-year-old recently discharged to retirement came back with symptoms shortness of breath. Patient appears to be mostly anxiety and patient when questioned clearly he is quite a bit anxious and he is quite a bit claustrophobic which was his main concern. Patient also has minimal cough with white to yellowish sputum production chest x-ray was read as left lower lobe pneumonia because of which patient was admitted for healthcare associated pneumonia patient was given Zosyn and levofloxacin. Patient doesn't have any fevers does have mild leukocytosis clinically doesn't appear to have pneumonia although Zosyn will be continued levofloxacin will be discontinued patient was believed to have heart failure as well although patient has some peripheral edema mild pitting patient doesn't have any other signs of CHF patient doesn't have any JVD no crackles on exam. I do not believe patient is in CHF exacerbation patient that creatinine is 1.9 baseline appears to be around 2.1 during his last hospitalization. Patient is probably more anxious rather than having pneumonia CHF ,cannot completely rule out pneumonia, therefore we'll continue antibiotics. IV diuretics discontinued with further diuretics as per nephrology. evaluated by psychiatry with inpatient mental health unit recommended,given his suicidal thoughts over the last week,daily hallucinations. On 11/30/2018 patient is now admitted to Dr. Pizano. On 11/29/2018 patient was discharged mental health unit but discharged on hold due to developing of hypoxic respiratory failure requiring BiPAP. Today patient remains confused. Per nursing staff patient was noncompliant with BiPAP. Creatinine improving to 1.70. BNP 7050. We'll consult cardiology services. Abdominal x-ray completed showing possibility for underlying ileus or enteritis , follow-up as indicated dissection is suspected clinically. Additional findings above. Dr. Nova has been consulted for GI services Chest x-ray completed showing interstitial edema situated by low lung volumes, right midlung atelectasis and small left pleural effusion with left basilar atelectasis. Suspicion for cardiogenic fluid overload however superimposed left perihilar pneumonia remains possible. Follow-up to resolution. Cardiology and pulmonary service is consulted Increased confusion. Psychiatry following Acute kidney injury. Nephrology following Objective - Vital Signs Vital signs: Vital Signs Temp 98.9 F 11/30/18 08:00 Pulse 76 11/30/18 12:05 Resp 18 11/30/18 11:54 BP 180/75 11/30/18 11:48 Pulse Ox 93 L 11/30/18 11:48 Intake & Output 11/29/18 11/30/18 11/30/18 18:59 06:59 18:59 Intake Total 240 400 Output Total 200 230 Balance 40 170 Weight 97.5 kg 97.1 kg Intake: Oral 240 400 Output: Urine 200 230 Other: Voiding Method Urinal Urinal # Voids 1 # Bowel Movements 1 1 - Exam Head normocephalic Neck supple Lungs diminished bilaterally Heart regular rate and rhythm S1-S2, no rub or gallop Abdomen is soft nontender nondistended positive bowel sounds no hepatosplenomegaly Extremities no edema - Labs CBC & Chem 7: 11/30/18 06:53 11/30/18 06:53 Labs: Abnormal Lab Results - Last 24 Hours (Table) 11/29/18 11/29/18 11/29/18 Range/Units 15:20 17:21 20:19 RBC (4.30-5.90) m/uL Hgb (13.0-17.5) gm/dL Hct (39.0-53.0) % MCV (80.0-100.0) fL MCHC (31.0-37.0) g/dL Lymphocytes # (1.0-4.8) k/uL ABG pO2 75 L (83-108) mmHg Chloride (98-107) mmol/L BUN (9-20) mg/dL Creatinine (0.66-1.25) mg/dL Glucose (74-99) mg/dL POC Glucose (mg/dL) 103 H 160 H (75-99) mg/dL 11/30/18 11/30/18 11/30/18 Range/Units 05:59 06:53 06:53 RBC 3.07 L (4.30-5.90) m/uL Hgb 9.7 L (13.0-17.5) gm/dL Hct 31.9 L (39.0-53.0) % MCV 104.0 H (80.0-100.0) fL MCHC 30.5 L (31.0-37.0) g/dL Lymphocytes # 0.9 L (1.0-4.8) k/uL ABG pO2 (83-108) mmHg Chloride 113 H (98-107) mmol/L BUN 43 H (9-20) mg/dL Creatinine 1.70 H (0.66-1.25) mg/dL Glucose 181 H (74-99) mg/dL POC Glucose (mg/dL) 203 H (75-99) mg/dL 11/30/18 Range/Units 11:48 RBC (4.30-5.90) m/uL Hgb (13.0-17.5) gm/dL Hct (39.0-53.0) % MCV (80.0-100.0) fL MCHC (31.0-37.0) g/dL Lymphocytes # (1.0-4.8) k/uL ABG pO2 (83-108) mmHg Chloride (98-107) mmol/L BUN (9-20) mg/dL Creatinine (0.66-1.25) mg/dL Glucose (74-99) mg/dL POC Glucose (mg/dL) 119 H (75-99) mg/dL Assessment and Plan Assessment: 1.Acute hypoxic respiratory failure multifactorial, possibly acute on chronic CHF-diastolic dysfunction, possibly healthcare associated pneumonia left lower lobe, anxiety. Chest x-ray completed showing interstitial edema accentuated by low lung volumes, right midlung atelectasis, and small left pleural effusion with left basilar atelectasis. Suspicion for cardiogenic fluid overload however superimposed left perihilar pneumonia remains possible. Follow-up to resolution. Dr. Marin for pulmonary care. Dr. Bella consulted for cardiology services. Patient currently maintained on Zosyn 2. major depressive disorder. Patient being followed by psychiatry 3. Recent stroke with some mild residual weakness in the right hand. 4. Paroximal Atrial fibrillation,currently sinus rhythm. maintained on eliquis 5.acute on Chronic kidney disease stage 4. Creatinine improving to 1.70 6.Type 2 diabetes mellitus 7.History of thyroid cancer,hypothyroid 8. Essential hypertension 9. gastric esophageal reflux disease 10. anxiety and depression. Evaluated by psychiatry, diagnosed with major depressive disorder with psychotic features. 11. Possible ileus. Abdominal x-ray completed showing possibly for Ileus or enteris. Follow-up as indicated if obstruction is suspected clinically. Digital findings above. Surgical services have been consulted DVT prophylaxis eliquis, GI prophylaxis Protonix. I performed an examination of the patient and discussed their management with the Nurse Practitioner. I have reviewed the Nurse Practitioner's notes and agree with the documented findings and plan of care
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
--- NOTE | 2018-11-30 16:39 | NM ---
EXAMINATION TYPE: NM pul perfusion DATE OF EXAM: 11/30/2018 COMPARISON: Prior nuclear medicine ventilation/perfusion exam 11/09/2018 and chest x-ray 11/29/2018 HISTORY: Difficulty breathing and cough, wheezing Following administration of 5.18 mCi Tc 99m MAA. Images obtained post injection. Patient unable to p erform the ventilation portion of the exam. FINDINGS: Perfusion exam performed. Relatively homogenous radio pharmaceutical uptake is noted within the left lung. Right hemidiaphragm is elevated. Perfusion defect noted in the right lower lobe is similar to [place] [facility] nuclear medicine perfusion finding October 2018. Stable. IMPRESSION: Stable posterior perfusion defect right lower lobe, elevated right hemidiaphragm.
[2018-11-30 16:56] LABS: Glucose,Whole Blood 304 mg/dL (75-99)
[2018-11-30 20:33] LABS: Glucose,Whole Blood 276 mg/dL (75-99)
[2018-11-30] MEDS: ATORVASTATIN 20 MG TAB PO SCH (21:02)
[2018-11-30] MEDS: INSULIN DETEMIR 100 UNIT/ML 10 ML VIAL SQ SCH (21:02)
[2018-11-30] MEDS: TAMSULOSIN 0.4 MG CAP.ER.24H PO SCH (21:03)
[2018-11-30] MEDS: MELATONIN 3 MG TABLET PO PRN (22:25)
[2018-12-01] MEDS: ACETAMINOPHEN TAB 325 MG TAB PO SCH ×6 (02:33→23:42)
[2018-12-01] MEDS: PANTOPRAZOLE 40 MG TABLET PO SCH (05:51)
[2018-12-01] MEDS: LEVOTHYROXINE 88 MCG TAB PO SCH (05:51)
[2018-12-01] MEDS: LORazepam 1 MG TAB PO PRN ×3 (05:51→19:21)
[2018-12-01] MEDS: PIPERACILLIN-TAZOBACTAM 3.375 GM in SODIUM CHLORIDE 0.9% 100 ML IVPB SCH ×3 (05:54→21:04)
[2018-12-01 06:03] LABS: Glucose,Whole Blood 95 mg/dL (75-99)
[2018-12-01] MEDS: INSULIN ASPART 100 UNIT/ML 1 ML 10 ML VIAL SQ SCH ×7 (06:07→21:05)
[2018-12-01] MEDS: ONDANSETRON 4 MG/2 ML VIAL IVP PRN ×2 (06:39→18:15)
[2018-12-01 07:21] LABS: Calcium 8.7 mg/dL (8.4-10.2); Potassium 4.7 mmol/L (3.5-5.1)
[2018-12-01] MEDS: IPRATROPIUM-ALBUTEROL 3 ML NEB INHALATION SCH ×4 (07:39→20:23)
[2018-12-01] MEDS: LACTULOSE 20 GM/30 ML CUP PO SCH ×3 (07:56→20:53)
[2018-12-01] MEDS: FAMOTIDINE 20 MG TAB PO SCH (07:59)
[2018-12-01] MEDS: CITALOPRAM HYDROBROMIDE 20 MG TAB PO SCH (07:59)
[2018-12-01] MEDS: buPROPion 75 MG TAB PO SCH (07:59)
[2018-12-01] MEDS: ATENOLOL 25 MG TAB PO SCH (07:59)
[2018-12-01] MEDS: CYANOCOBALAMIN 500 MCG TAB PO SCH (07:59)
[2018-12-01] MEDS: APIXABAN 2.5 MG TABLET PO SCH ×2 (07:59→21:05)
[2018-12-01] MEDS: ASPIRIN 81 MG PO SCH (07:59)
[2018-12-01] MEDS: hydrALAZINE HCL 25 MG TAB PO SCH (07:59)
[2018-12-01] MEDS: DOCUSATE 100 MG CAP PO SCH ×2 (07:59→21:05)
[2018-12-01] MEDS: risperiDONE 1 MG TAB PO SCH ×2 (08:00→21:05)
[2018-12-01] MEDS: predniSONE 20 MG TAB PO SCH (08:00)
[2018-12-01] MEDS: FLUTICASONE 50MCG/SPRAY NASAL 16GM EA NOSTRIL SCH (09:02)
--- NOTE | 2018-12-01 09:46 | P.PN ---
Subjective Progress Note Date: 12/01/18 Patient seen and examined at bedside. He is currently eating his breakfast. Denies abdominal pain. Denies nausea. States he had large bowel movements yesterday. Objective - Vital Signs Vital signs: Vital Signs Temp 97.4 F L 12/01/18 07:45 Pulse 74 12/01/18 08:00 Resp 18 12/01/18 08:00 BP 146/67 12/01/18 08:59 Pulse Ox 99 12/01/18 07:45 Intake & Output 11/30/18 12/01/18 12/01/18 18:59 06:59 18:59 Output Total 625 Balance -625 Weight 98 kg Output: Urine 625 Other: Voiding Method Urinal # Voids 1 1 # Bowel Movements 1 - Constitutional General appearance: Present: cooperative, no acute distress - Gastrointestinal Gastrointestinal Comment(s): Soft, nontender, nondistended, no rebound, no guarding - Psychiatric Psychiatric: Present: A&O x's 3 - Labs CBC & Chem 7: 11/30/18 06:53 12/01/18 06:27 Labs: Abnormal Lab Results - Last 24 Hours (Table) 11/30/18 11/30/18 11/30/18 Range/Units 11:48 16:47 20:32 Chloride (98-107) mmol/L BUN (9-20) mg/dL Creatinine (0.66-1.25) mg/dL POC Glucose (mg/dL) 119 H 304 H 276 H (75-99) mg/dL 12/01/18 Range/Units 06:27 Chloride 113 H (98-107) mmol/L BUN 44 H (9-20) mg/dL Creatinine 2.03 H (0.66-1.25) mg/dL POC Glucose (mg/dL) (75-99) mg/dL Assessment and Plan Plan: 83-year-old male with concern of ileus - Ileus appears to be resolving with bowel function evident - Continue diet - Continue to monitor her electrolyte deficiencies and replace as needed - Please call if any change in clinical progress
--- NOTE | 2018-12-01 10:59 | P.PN ---
Subjective Progress Note Date: 12/01/18 Interval history: this is a 83-year-old recently discharged to care home came back with symptoms shortness of breath. Patient appears to be mostly anxiety and patient when questioned clearly he is quite a bit anxious and he is quite a bit claustrophobic which was his main concern. Patient also has minimal cough with white to yellowish sputum production chest x-ray was read as left lower lobe pneumonia because of which patient was admitted for healthcare associated pneumonia patient was given Zosyn and levofloxacin. Patient doesn't have any fevers does have mild leukocytosis clinically doesn't appear to have pneumonia although Zosyn will be continued levofloxacin will be discontinued patient was believed to have heart failure as well although patient has some peripheral edema mild pitting patient doesn't have any other signs of CHF patient doesn't have any JVD no crackles on exam. I do not believe patient is in CHF exacerbation patient that creatinine is 1.9 baseline appears to be around 2.1 during his last hospitalization. Patient is probably more anxious rather than having pneumonia CHF ,cannot completely rule out pneumonia, therefore we'll continue antibiotics. IV diuretics discontinued with further diuretics as per nephrology. evaluated by psychiatry with inpatient mental health unit recommended,given his suicidal thoughts over the last week,daily hallucinations. On 11/30/2018 patient is now admitted to Dr. Pizano. On 11/29/2018 patient was discharged mental health unit but discharged on hold due to developing of hypoxic respiratory failure requiring BiPAP. Today patient remains confused. Per nursing staff patient was noncompliant with BiPAP. Creatinine improving to 1.70. BNP 7050. We'll consult cardiology services. Abdominal x-ray completed showing possibility for underlying ileus or enteritis , follow-up as indicated dissection is suspected clinically. Additional findings above. Dr. Nova has been consulted for GI services Chest x-ray completed showing interstitial edema situated by low lung volumes, right midlung atelectasis and small left pleural effusion with left basilar atelectasis. Suspicion for cardiogenic fluid overload however superimposed left perihilar pneumonia remains possible. Follow-up to resolution. Cardiology and pulmonary service is consulted Increased confusion. Psychiatry following Acute kidney injury. Nephrology following On 12/01/2018 patient is currently resting in bed. Patient at this time is complaining of some nausea. Dr. Nova is following for surgical services. Patient did report a large bowel movement yesterday. Cardiology services have been consulted. Nephrology services also following. Increased creatinine level. At this time patient denies chest pain or shortness breath. Patient denies nausea vomiting or diarrhea. Patient denies any urinary burning or frequency Objective - Vital Signs Vital signs: Vital Signs Temp 97.4 F L 12/01/18 07:45 Pulse 74 12/01/18 08:00 Resp 18 12/01/18 08:00 BP 146/67 12/01/18 08:59 Pulse Ox 99 12/01/18 07:45 Intake & Output 11/30/18 12/01/18 12/01/18 18:59 06:59 18:59 Output Total 625 Balance -625 Weight 98 kg Output: Urine 625 Other: Voiding Method Urinal # Voids 1 1 # Bowel Movements 1 - Exam Head normocephalic Neck supple Lungs diminished bilaterally Heart regular rate and rhythm S1-S2, no rub or gallop Abdomen is soft nontender nondistended positive bowel sounds no hepatosplenomegaly Extremities no edema - Labs CBC & Chem 7: 11/30/18 06:53 12/01/18 06:27 Labs: Abnormal Lab Results - Last 24 Hours (Table) 11/30/18 11/30/18 11/30/18 Range/Units 11:48 16:47 20:32 Chloride (98-107) mmol/L BUN (9-20) mg/dL Creatinine (0.66-1.25) mg/dL POC Glucose (mg/dL) 119 H 304 H 276 H (75-99) mg/dL 12/01/18 Range/Units 06:27 Chloride 113 H (98-107) mmol/L BUN 44 H (9-20) mg/dL Creatinine 2.03 H (0.66-1.25) mg/dL POC Glucose (mg/dL) (75-99) mg/dL Assessment and Plan Assessment: 1.Acute hypoxic respiratory failure multifactorial, possibly acute on chronic CHF-diastolic dysfunction, possibly healthcare associated pneumonia left lower lobe, anxiety. Chest x-ray completed showing interstitial edema accentuated by low lung volumes, right midlung atelectasis, and small left pleural effusion with left basilar atelectasis. Suspicion for cardiogenic fluid overload however superimposed left perihilar pneumonia remains possible. Follow-up to resolution. Dr. Marin for pulmonary care. Dr. Bella consulted for cardiology services. Patient currently maintained on Zosyn. Elevated d-dimer. VQ scan ordered. 2. major depressive disorder. Patient being followed by psychiatry 3. Recent stroke with some mild residual weakness in the right hand. 4. Paroximal Atrial fibrillation,currently sinus rhythm. maintained on eliquis 5.acute on Chronic kidney disease stage 4. Creatinine increasing to 2.03. Nephrology services have been reconsulted 6.Type 2 diabetes mellitus 7.History of thyroid cancer,hypothyroid 8. Essential hypertension 9. gastric esophageal reflux disease 10. anxiety and depression. Evaluated by psychiatry, diagnosed with major depressive disorder with psychotic features. 11. Possible ileus. Abdominal x-ray completed showing possibly for Ileus or enteris. Follow-up as indicated if obstruction is suspected clinically. Per surgical solution services ileus appears to be resolving with bowel function evident DVT prophylaxis eliquis, GI prophylaxis Protonix. I performed an examination of the patient and discussed their management with the Nurse Practitioner. I have reviewed the Nurse Practitioner's notes and agree with the documented findings and plan of care
--- NOTE | 2018-12-01 11:50 | P.PN ---
Subjective Patient is seen in follow-up for acute kidney injury on chronic any disease. 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 Creatinine was near 1.4 in October 2018. It has been staying in the range of 1.7-2 recently. Patient admits to good urine output. No vomiting or diarrhea. No significant cough. Blood pressures still on the higher side. Vital signs are stable. General: The patient appeared well nourished and normally developed. HEENT: Head exam is unremarkable. Neck is without jugular venous distension. LUNGS: Lungs are clear to auscultation and percussion. Breath sounds decreased. HEART: Rate and Rhythm are regular. First and second heart sounds normal. No murmurs, rubs or gallops. ABDOMEN: Abdominal exam reveals normal bowel sounds. Non-tender and non- distended. No evidence of peritonitis. EXTREMITITES: No clubbing, cyanosis, or edema. Objective - Vital Signs Vital signs: Vital Signs Temp 97.4 F L 12/01/18 07:45 Pulse 67 12/01/18 11:45 Resp 18 12/01/18 11:45 BP 169/77 12/01/18 11:44 Pulse Ox 94 L 12/01/18 11:44 Intake & Output 11/30/18 12/01/18 12/01/18 18:59 06:59 18:59 Output Total 625 Balance -625 Weight 98 kg Output: Urine 625 Other: Voiding Method Urinal # Voids 1 1 # Bowel Movements 1 - Labs CBC & Chem 7: 11/30/18 06:53 12/01/18 06:27 Labs: Abnormal Lab Results - Last 24 Hours (Table) 11/30/18 11/30/18 11/30/18 Range/Units 11:48 16:47 20:32 Chloride (98-107) mmol/L BUN (9-20) mg/dL Creatinine (0.66-1.25) mg/dL POC Glucose (mg/dL) 119 H 304 H 276 H (75-99) mg/dL 12/01/18 Range/Units 06:27 Chloride 113 H (98-107) mmol/L BUN 44 H (9-20) mg/dL Creatinine 2.03 H (0.66-1.25) mg/dL POC Glucose (mg/dL) (75-99) mg/dL Assessment and Plan Plan: Assessment: 1. Chronic kidney disease stage IIIB/4 secondary to diabetic kidney disease with baseline creatinine now near 1.7-2. It was 1.4 in October 2018. 2. History of urinary retention. Currently does not have a Lamas catheter. 3. Pneumonia maintained on antibiotics. 4. BPH maintained on Flomax. 5. Diabetes mellitus. 6. Benign hypertension. Blood pressures on the higher side. Partially related to steroids. Plan: Increase hydralazine to 50 mg 3 times daily. Check bladder scan to rule out recurrence of urinary retention. Follow-up morning chest x-ray. Encourage oral intake. Avoid nephrotoxins.
[2018-12-01 12:03] LABS: Glucose,Whole Blood 98 mg/dL (75-99)
--- NOTE | 2018-12-01 13:28 | PN ---
PROGRESS NOTE DATE OF SERVICE: December 01, 2018 This is a patient who was seen in consultation yesterday. The patient is an 83-year- old male who apparently sees a Dr. Parker as his primary care physician. He has a history of CAD with previous stent placement, diabetes mellitus, GERD, hyperlipidemia, hypertension, BPH, obstructive sleep apnea syndrome without a device, atrial fibrillation, carotid stenosis, macular degeneration. He was admitted on November 27 with a diagnosis of increasing shortness of breath. We felt that his difficulty breathing was related to two things including heart failure and pneumonia. The patient was placed on BiPAP and transferred over to the third floor. Unfortunately, he is absolutely refusing BiPAP. Today, his and daughter are in the room. The patient states that the BiPAP makes him feel claustrophobic and he does not like it and will not use it. The BiPAP will be discontinued. Current vital signs are reviewed. Temperature is 97.4, heart rate 67, respiratory rate 18, blood pressure 146/67, mean 93. 5 L, saturation 94%. Appears in no acute distress. He is lying on his right side, almost flat. No audible wheezing. No use of accessory muscles. No conversational dyspnea. HEENT examination is grossly unremarkable. Mucous membranes are moist. Nasal O2 was noted. Neck is supple. Full range of motion. No adenopathy or thyromegaly. Cardiovascular examination reveals a regular rhythm and rate. Heart sounds are distant. Heart rate about 70 beats per minute. No distinct murmurs noted. Lungs reveal coarse rhonchi. He has got some bibasilar crackles. No wheezes. Breath sounds are equal bilaterally but diminished throughout. Abdomen is soft. Bowel sounds are heard. Extremities are intact. No cyanosis, clubbing, or edema. Skin without rash. Neurologic examination is difficult to assess. He does move all 4 extremities well. LABS: Reviewed. Today's labs include a sodium 144, potassium 4.7, chloride 113, CO2 of 27, anion gap is 4, BUN and creatinine were 44 and 2.03. Microbiologic studies are negative thus far. CURRENT MEDICATIONS ARE: Reviewed. He remains on prednisone 40 mg a day, Zosyn, updrafts with albuterol and Atrovent. ASSESSMENT: 1. Acute on chronic hypoxemic respiratory failure, secondary to suspected healthcare acquired pneumonia. 2. Acute exacerbation of chronic diastolic heart failure. 3. 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 4. History of atrial fibrillation, on anticoagulation. 5. Chronic kidney disease, stage 3/4. 6. Hyperkalemia. 7. Diabetes mellitus. 8. History of thyroid cancer. 9. Hypothyroidism. 10.Hypertension. 11.Anxiety/depression. 12.Macular degeneration. 13.Coronary artery disease with previous stent placement. 14.History of chronic tobacco dependence. 15.Ischemic cardiomyopathy. PLAN: The patient is being treated primarily for infection and heart failure. He absolutely refuses the BiPAP device. He is on appropriate medications. We will continue to follow. Prognosis is not very good. I did have a conversation with his and daughter today. They realize that him not using the BiPAP may prevent him from improving as rapidly as he should and/or may not allow him to improve at all. They do understand. They go with his wishes. ADDISON / OLIVIA: [id number] /
--- NOTE | 2018-12-01 14:12 | CONS ---
RAMANDEEP Alcantar is an 83-year-old gentleman with history of coronary artery disease, status post angioplasty dyslipidemia hypothyroidism, insulin-requiring diabetes, and atrial fibrillation who is admitted to hospital with bilateral leg edema and shortness of breath. He had a recent stroke and was in a longterm from where he got readmitted. At the time of my evaluation, he appears comfortable at rest. He received IV Lasix following which the leg edema had resolved. Chest x-ray shows left lower lobe pneumonia on his initial presentation and pulmonary had seen him. At the time of my evaluation, he appears comfortable at rest and is free of leg edema and shortness of breath that improved. PAST MEDICAL HISTORY: Significant for coronary artery disease, hypertension, dyslipidemia, recent CVA with renal insufficiency, sleep apnea. MEDICATIONS: At home included Risperdal, Wellbutrin, Flomax, Zocor, Prilosec, Maalox, Claritin, Synthroid, Ativan, insulin, Tenormin, Eliquis, aspirin, Combivent. ALLERGIES: No known drug allergies. FAMILY HISTORY: Negative for premature coronary artery disease. SOCIAL HISTORY: Negative for current smoking, EtOH abuse or drug abuse. REVIEW OF SYSTEMS: HEENT is unremarkable. Cardiac as described above. Respiratory negative. GI negative. Genitourinary: Negative. Allergy/Immunology: Negative. Musculoskeletal: Significant for arthritis. Psychosocial negative. Endocrine: Negative. Derm: Negative. Constitutional negative. Oncological negative. Rest of the system review is not relevant. EXAM: Heart rate is 57 beats per minute. Blood pressure is 146/70, respirations 18, chest exam reveals good air entry bilaterally. Heart exam reveals first and second heart sounds. An S4 is heard. ABDOMEN: Soft. Exam of the extremities did not reveal any edema. Peripheral pulses are felt. His recent echocardiogram showed normal LV function. LAB: Showed a BUN of 44, creatinine of 2.3, hemoglobin is 9.7. V/Q scan showed a stable perfusion defect. BNP was elevated at 7000. ASSESSMENT: 1. Acute onset diastolic heart failure. 2. History of atrial fibrillation. 3. Coronary artery disease, status post angioplasty. 4. Cerebrovascular accident. 5. Renal insufficiency. PLAN: Patient will continue current medications. Lasix is on hold because of prerenal insufficiency and the patient does not seem fluid overloaded at this time. Thank you for allowing us to participate in the care of this pleasant gentleman. MMODL / IJN: [id number] /
[2018-12-01] MEDS: hydrALAZINE HCL 50 MG TAB PO SCH ×2 (16:04→21:05)
[2018-12-01 17:01] LABS: Glucose,Whole Blood 133 mg/dL (75-99)
[2018-12-01 20:57] LABS: Glucose,Whole Blood 242 mg/dL (75-99)
[2018-12-01] MEDS: INSULIN DETEMIR 100 UNIT/ML 10 ML VIAL SQ SCH (21:04)
[2018-12-01] MEDS: ATORVASTATIN 20 MG TAB PO SCH (21:05)
[2018-12-01] MEDS: TAMSULOSIN 0.4 MG CAP.ER.24H PO SCH (21:05)
[2018-12-02] MEDS: LORazepam 1 MG TAB PO PRN ×3 (00:34→14:22)
[2018-12-02] MEDS: MELATONIN 3 MG TABLET PO PRN (00:37)
[2018-12-02] MEDS: ACETAMINOPHEN TAB 325 MG TAB PO SCH ×5 (03:25→21:14)
[2018-12-02 05:45] LABS: Basophils % (A) 0 %; Eosinophils # (A) 0.1 k/uL (0-0.7); Eosinophils % (A) 1 %; HCT 30.9 % (39.0-53.0); HGB 9.5 gm/dL (13.0-17.5); Hypochromasia Marked; Lymphocytes # (A) 1.5 k/uL (1.0-4.8); Lymphocytes % (A) 16 %; MCH 32.1 pg (25.0-35.0); MCHC 30.8 g/dL (31.0-37.0); MCV 104.3 fL (80.0-100.0); Macrocytosis Slight; Mean Platelet Volume 7.4; Monocytes # (A) 0.6 k/uL (0-1.0); Monocytes % (A) 7 %; Neutrophils # (A) 6.6 k/uL (1.3-7.7); Neutrophils % (A) 74 %; Platelet Count 297 k/uL (150-450); RBC 2.97 m/uL (4.30-5.90); RDW 14.1 % (11.5-15.5); WBC 8.9 k/uL (3.8-10.6)
[2018-12-02] MEDS: PIPERACILLIN-TAZOBACTAM 3.375 GM in SODIUM CHLORIDE 0.9% 100 ML IVPB SCH ×3 (06:01→21:43)
[2018-12-02] MEDS: LEVOTHYROXINE 88 MCG TAB PO SCH (06:02)
[2018-12-02] MEDS: PANTOPRAZOLE 40 MG TABLET PO SCH (06:02)
[2018-12-02 06:03] LABS: Albumin 2.8 g/dL (3.5-5.0); Calcium 8.5 mg/dL (8.4-10.2); Magnesium 2.6 mg/dL (1.6-2.3); Potassium 4.8 mmol/L (3.5-5.1); Total Bilirubin 0.4 mg/dL (0.2-1.3); Total Protein 5.2 g/dL (6.3-8.2)
[2018-12-02] MEDS: INSULIN ASPART 100 UNIT/ML 1 ML 10 ML VIAL SQ SCH ×5 (06:17→21:14)
[2018-12-02 06:38] LABS: Glucose,Whole Blood 78 mg/dL (75-99)
--- NOTE | 2018-12-02 07:14 | XR ---
EXAMINATION TYPE: XR chest 1V portable DATE OF EXAM: 12/02/2018 COMPARISON: 11/29/2018 HISTORY: Ingestive heart failure/pneumonia TECHNIQUE: Single frontal view of the chest is obtained. FINDINGS: There is worsening right midlung opacity and right hemithorax volume loss although there i s improved aeration of the left perihilar region and retrocardiac airspace. There is new blunting of the right costophrenic angle although partially obscured by overlying leads. Minimal interstitial angel ma and pulmonary vascular congestion remaining but are accentuated by low lung volumes. Cardiac silho uette is also enlarged and accentuated by low lung volumes. IMPRESSION: Shifting airspace disease, worsening in the right midlung and right costophrenic angle a nd improved in the left perihilar region and retrocardiac airspace, suggests dependent pulmonary ranulfo a and/or atelectasis rather than pneumonia. Mild background interstitial pulmonary edema is likely on the basis of congestive heart failure.
[2018-12-02] MEDS: LACTULOSE 20 GM/30 ML CUP PO SCH ×3 (07:58→21:11)
[2018-12-02] MEDS: buPROPion 75 MG TAB PO SCH (07:59)
[2018-12-02] MEDS: CYANOCOBALAMIN 500 MCG TAB PO SCH (07:59)
[2018-12-02] MEDS: ASPIRIN 81 MG PO SCH (07:59)
[2018-12-02] MEDS: ATENOLOL 25 MG TAB PO SCH (07:59)
[2018-12-02] MEDS: hydrALAZINE HCL 50 MG TAB PO SCH ×3 (07:59→21:11)
[2018-12-02] MEDS: CITALOPRAM HYDROBROMIDE 20 MG TAB PO SCH (07:59)
[2018-12-02] MEDS: DOCUSATE 100 MG CAP PO SCH ×2 (07:59→21:13)
[2018-12-02] MEDS: FAMOTIDINE 20 MG TAB PO SCH (07:59)
[2018-12-02] MEDS: predniSONE 20 MG TAB PO SCH (07:59)
[2018-12-02] MEDS: risperiDONE 1 MG TAB PO SCH ×2 (07:59→21:11)
[2018-12-02] MEDS: APIXABAN 2.5 MG TABLET PO SCH ×2 (07:59→21:13)
[2018-12-02] MEDS: FLUTICASONE 50MCG/SPRAY NASAL 16GM EA NOSTRIL SCH (08:01)
[2018-12-02] MEDS: IPRATROPIUM-ALBUTEROL 3 ML NEB INHALATION SCH ×4 (08:09→19:46)
--- NOTE | 2018-12-02 10:16 | P.PN ---
Subjective Progress Note Date: 12/02/18 Interval history: this is a 83-year-old recently [facility] to [facility] came back with symptoms shortness of breath. Patient appears to be mostly anxiety and patient when questioned clearly he is quite a bit anxious and he is quite a bit claustrophobic which was his main concern. Patient also has minimal cough with white to yellowish sputum production chest x-ray was read as left lower lobe pneumonia because of which patient was admitted for healthcare associated pneumonia patient was given Zosyn and levofloxacin. Patient doesn't have any fevers does have mild leukocytosis clinically doesn't appear to have pneumonia although Zosyn will be continued levofloxacin will be discontinued patient was believed to have heart failure as well although patient has some peripheral edema mild pitting patient doesn't have any other signs of CHF patient doesn't have any JVD no crackles on exam. I do not believe patient is in CHF exacerbation patient that creatinine is 1.9 baseline appears to be around 2.1 during his last hospitalization. Patient is probably more anxious rather than having pneumonia CHF ,cannot completely rule out pneumonia, therefore we'll continue antibiotics. IV diuretics discontinued with further diuretics as per nephrology. evaluated by psychiatry with inpatient mental health unit recommended,given his suicidal thoughts over the last week,daily hallucinations. On 11/30/2018 patient is now admitted to Dr. Pizano. On 11/29/2018 patient was discharged mental health unit but discharged on hold due to developing of hypoxic respiratory failure requiring BiPAP. Today patient remains confused. Per nursing staff patient was noncompliant with BiPAP. Creatinine improving to 1.70. BNP 7050. We'll consult cardiology services. Abdominal x-ray completed showing possibility for underlying ileus or enteritis , follow-up as indicated dissection is suspected clinically. Additional findings above. Dr. Nova has been consulted for GI services Chest x-ray completed showing interstitial edema situated by low lung volumes, right midlung atelectasis and small left pleural effusion with left basilar atelectasis. Suspicion for cardiogenic fluid overload however superimposed left perihilar pneumonia remains possible. Follow-up to resolution. Cardiology and pulmonary service is consulted Increased confusion. Psychiatry following Acute kidney injury. Nephrology following On 12/01/2018 patient is currently resting in bed. Patient at this time is complaining of some nausea. Dr. Nova is following for surgical services. Patient did report a large bowel movement yesterday. Cardiology services have been consulted. Nephrology services also following. Increased creatinine level. At this time patient denies chest pain or shortness breath. Patient denies nausea vomiting or diarrhea. Patient denies any urinary burning or frequency On 12/02/2018 patient is currently resting in bed. Per nursing staff patient is refusing to wear BiPAP. This time patient denies chest pain or shortness of breath. Patient denies nausea vomiting or diarrhea. Patient denies any urinary burning or frequency. Creatinine improving to 1.85. Patient was hypoglycemic this a.m. with a blood sugar 40. Objective - Vital Signs Vital signs: Vital Signs Temp 97.9 F 12/02/18 07:57 Pulse 68 12/02/18 08:21 Resp 18 12/02/18 08:00 BP 131/60 12/02/18 07:57 Pulse Ox 95 12/02/18 07:57 Intake & Output 12/01/18 12/02/18 12/02/18 18:59 06:59 18:59 Intake Total 422 118 240 Output Total 650 440 Balance -228 -322 240 Weight 98.5 kg Intake: Intake, IV Titration 100 Amount Piperacillin-Tazobactam 3 100 .375 gm In Sodium Chloride 0.9% 100 ml @ 25 mls/hr IVPB Q8H [facility] Rx#: [id number] Oral 322 118 240 Output: Urine 650 440 Other: Voiding Method Urinal # Voids 300 1 - Exam Head normocephalic Neck supple Lungs diminished bilaterally Heart regular rate and rhythm S1-S2, no rub or gallop Abdomen is soft nontender nondistended positive bowel sounds no hepatosplenomegaly Extremities no edema - Labs CBC & Chem 7: 12/02/18 05:07 12/02/18 05:07 Labs: Abnormal Lab Results - Last 24 Hours (Table) 12/01/18 12/01/18 12/02/18 Range/Units 17:00 20:56 05:07 RBC (4.30-5.90) m/uL Hgb (13.0-17.5) gm/dL Hct (39.0-53.0) % MCV (80.0-100.0) fL MCHC (31.0-37.0) g/dL Chloride 113 H (98-107) mmol/L BUN 43 H (9-20) mg/dL Creatinine 1.85 H (0.66-1.25) mg/dL Glucose 40 L* (74-99) mg/dL POC Glucose (mg/dL) 133 H 242 H (75-99) mg/dL Magnesium 2.6 H (1.6-2.3) mg/dL Total Protein 5.2 L (6.3-8.2) g/dL Albumin 2.8 L (3.5-5.0) g/dL 12/02/18 Range/Units 05:07 RBC 2.97 L (4.30-5.90) m/uL Hgb 9.5 L (13.0-17.5) gm/dL Hct 30.9 L (39.0-53.0) % MCV 104.3 H (80.0-100.0) fL MCHC 30.8 L (31.0-37.0) g/dL Chloride (98-107) mmol/L BUN (9-20) mg/dL Creatinine (0.66-1.25) mg/dL Glucose (74-99) mg/dL POC Glucose (mg/dL) (75-99) mg/dL Magnesium (1.6-2.3) mg/dL Total Protein (6.3-8.2) g/dL Albumin (3.5-5.0) g/dL Assessment and Plan Assessment: 1.Acute hypoxic respiratory failure multifactorial, possibly acute on chronic CHF-diastolic dysfunction, possibly healthcare associated pneumonia left lower lobe, anxiety. Chest x-ray completed showing interstitial edema accentuated by low lung volumes, right midlung atelectasis, and small left pleural effusion with left basilar atelectasis. Suspicion for cardiogenic fluid overload however superimposed left perihilar pneumonia remains possible. Follow-up to resolution. Dr. Marin for pulmonary care. Dr. Bella consulted for cardiology services. Patient currently maintained on Zosyn. Elevated d-dimer. VQ scan completed showing stable posterior perfusion defect right lower lobe, elevated right hemidiaphragm. Cardiology following. Lasix currently on hold due to prerenal insufficiency. 2. major depressive disorder. Patient being followed by psychiatry 3. Recent stroke with some mild residual weakness in the right hand. 4. Paroximal Atrial fibrillation,currently sinus rhythm. maintained on eliquis 5.acute on Chronic kidney disease stage 4. Creatinine increasing to 2.03. Nephrology services have been reconsulted. Creatinine improving to 1.85 6.Type 2 diabetes mellitus 7.History of thyroid cancer,hypothyroid 8. Essential hypertension 9. gastric esophageal reflux disease 10. anxiety and depression. Evaluated by psychiatry, diagnosed with major depressive disorder with psychotic features. 11. Possible ileus. Abdominal x-ray completed showing possibly for Ileus or enteris. Follow-up as indicated if obstruction is suspected clinically. Per surgical solution services ileus appears to be resolving with bowel function evident 12. Hypoglycemia. Blood sugar 40. Will discontinue aspart 5 units with meals. Continue sliding scale insulin and long-acting insulin coverage. DVT prophylaxis eliquis, GI prophylaxis Protonix. I performed an examination of the patient and discussed their management with the Nurse Practitioner. I have reviewed the Nurse Practitioner's notes and agree with the documented findings and plan of care
[2018-12-02 11:20] LABS: Glucose,Whole Blood 153 mg/dL (75-99)
--- NOTE | 2018-12-02 11:46 | P.PN ---
Subjective Progress Note Date: 12/02/18 This is a very pleasant 83-year-old gentleman, he has a history of coronary artery disease with previous stent placement, diabetes mellitus, GERD, hyperlipidemia, hypertension, benign prostatic hypertrophy, obstructive sleep apnea without device, atrial fibrillation, carotid stenosis, hypothyroidism macular degeneration. He was admitted on 11/27/2018 with from an extended care facility with complaints of increasing shortness of breath, bilateral peripheral edema, anxiety and productive cough of white to yellow sputum. Chest x-ray revealed a left lower lobe pneumonia. A repeat chest x-ray was performed today which showed shifting airspace disease, worsening in the right midlung and right costophrenic angle, and improved in the left perihilar region and retrocardiac airspace, suggesting dependent pulmonary edema and/or atelectasis rather than pneumonia. Blood pressure 130/60 with a heart rate in the 60s, 95% on room air. White blood cell count 8.9, hemoglobin 9.5, platelet count 297. Sodium 141, potassium 4.8, BUN 43 and creatinine 1.8, patient today is resting comfortably in bed, denies any chest pain or shortness of breath. Blood sugar 40 this morning Objective - Vital Signs Vital signs: Vital Signs Temp 97.9 F 12/02/18 07:57 Pulse 68 12/02/18 11:26 Resp 18 12/02/18 08:00 BP 131/60 12/02/18 07:57 Pulse Ox 95 12/02/18 07:57 Intake & Output 12/01/18 12/02/18 12/02/18 18:59 06:59 18:59 Intake Total 422 118 240 Output Total 650 440 Balance -228 -322 240 Weight 98.5 kg Intake: Intake, IV Titration 100 Amount Piperacillin-Tazobactam 3 100 .375 gm In Sodium Chloride 0.9% 100 ml @ 25 mls/hr IVPB Q8H [facility] Rx#: [id number] Oral 322 118 240 Output: Urine 650 440 Other: Voiding Method Urinal # Voids 300 1 - Exam GENERAL EXAM: Alert, active, comfortable in no apparent distress. HEAD: Normocephalic. EYES: Normal reaction of pupils, equal size. Ocular degeneration. NOSE: Clear with pink turbinates. THROAT: No erythema or exudates. NECK: No masses, no JVD. CHEST: No chest wall deformity. LUNGS: Equal air entry with crackles in the posterior bases. CVS: S1 and S2 normal with no audible murmur, irregular rhythm. ABDOMEN: No hepatosplenomegaly, normal bowel sounds, no guarding or rigidity. SPINE: No scoliosis or deformity SKIN: No rashes CENTRAL NERVOUS SYSTEM: No focal deficits, tone is normal in all 4 extremities. EXTREMITIES: There is trace peripheral edema. No clubbing, no cyanosis. Peripheral pulses are intact. - Labs CBC & Chem 7: 12/02/18 05:07 12/02/18 05:07 Labs: Abnormal Lab Results - Last 24 Hours (Table) 12/01/18 12/01/18 12/02/18 Range/Units 17:00 20:56 05:07 RBC (4.30-5.90) m/uL Hgb (13.0-17.5) gm/dL Hct (39.0-53.0) % MCV (80.0-100.0) fL MCHC (31.0-37.0) g/dL Chloride 113 H (98-107) mmol/L BUN 43 H (9-20) mg/dL Creatinine 1.85 H (0.66-1.25) mg/dL Glucose 40 L* (74-99) mg/dL POC Glucose (mg/dL) 133 H 242 H (75-99) mg/dL Magnesium 2.6 H (1.6-2.3) mg/dL Total Protein 5.2 L (6.3-8.2) g/dL Albumin 2.8 L (3.5-5.0) g/dL 12/02/18 12/02/18 Range/Units 05:07 11:18 RBC 2.97 L (4.30-5.90) m/uL Hgb 9.5 L (13.0-17.5) gm/dL Hct 30.9 L (39.0-53.0) % MCV 104.3 H (80.0-100.0) fL MCHC 30.8 L (31.0-37.0) g/dL Chloride (98-107) mmol/L BUN (9-20) mg/dL Creatinine (0.66-1.25) mg/dL Glucose (74-99) mg/dL POC Glucose (mg/dL) 153 H (75-99) mg/dL Magnesium (1.6-2.3) mg/dL Total Protein (6.3-8.2) g/dL Albumin (3.5-5.0) g/dL Assessment and Plan Plan: Assessment and plan #1 Acute on chronic hypoxic respiratory failure secondary to suspected health acquired healthcare associated pneumonia. #2 Acute exacerbation of chronic diastolic congestive heart failure. 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 #4 History of atrial fibrillation currently in sinus rhythm. Anticoagulated with Eliquis. #5 Chronic kidney disease stage 3/4. #6 Hyperkalemia. #7 Diabetes mellitus, type II. #8 History of thyroid cancer, hypothyroidism. #9 Hypertension. #10 Anxiety/depression. #11 Macular degeneration. #12 Coronary artery disease with previous stent placement. #13 History of chronic tobacco dependence. #14 Ischemic cardiomyopathy. Plan At this point in time, patient's diuretics are currently on hold because of abnormal renal function, nephrology is following. Continue current medications. DNP note has been reviewed, I agree with a documented findings and plan of care. Patient was seen and examined.
[2018-12-02 12:32] LABS: Hemoglobin A1C 7.5 % (4.0-6.0)
--- NOTE | 2018-12-02 14:32 | PN ---
PROGRESS NOTE Patient is seen for followup for CKD and acute kidney injury. Renal function is stable. Creatinine has decreased to 1.8 from 2.0 yesterday. Currently, patient is lying in bed. He denies any complaints. He wants to sleep. Blood pressure was 131/60, heart rate of 65 per minute patient is afebrile. Examination of the heart, S1, S2. Examination of the lungs, bilateral breath sounds are heard. Abdomen is soft, nontender. Examination of the lower extremities, shows no significant edema. INSOLVENCY PRACTITIONER exam is grossly intact. LABS: Show sodium 141, potassium 4.8, chloride 113, BUN 43, serum creatinine 1.8. Sugar was low at 40 earlier. Hemoglobin 9.5 g/dL. ASSESSMENT: 1. 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 Baseline creatinine about 1.7-2. Currently, previously it was about 1.4 in October 2018. 2. Urinary retention status post Lamas catheter placement and removal. 3. Pneumonia maintained on antibiotics. 4. Benign prostatic hypertrophy, maintained on Flomax. 5. Hypertension, somewhat exacerbated by steroids. Occasional high readings, but it does come down to around 130 mmHg systolic. We can increase it to [place] to 50 mg if needed. MMODL / IJN: [id number] /
--- NOTE | 2018-12-02 15:06 | P.PN ---
Subjective Progress Note Date: 12/02/18 On today's evaluation of 12/02/2018, seeing this patient for a follow-up. The patient is known to have coronary artery disease with previous coronary stent placement. He is known to have diabetes mellitus, hypertension, hyperlipidemia , chronic atrial fibrillation, obstructive sleep apnea for which she is not utilizing any form of CPAP therapy in addition to current artery stenosis and macular degeneration. The patient presented to hospital because of worsening shortness of breath. He was quite hypoxic and initially was on 5 L of oxygen by nasal cannula saturation was in the low 90s. We are in the process of weaning the patient's FiO2 down. Currently is on 4 L of oxygen by nasal cannula. Pulse ox 94%. Less short of breath. He is on accommodation of antibiotics and bronchodilators and steroids. The patient is currently on IV Zosyn. The chest x-ray from today shows small lung volumes. There is some mild four-vessel congestion could be related to underlying diastolic heart failure. Right lung pneumonia cannot be completely excluded. He continues to have some residual weakness on the right side related to a previous CVA. His cardiac rhythm is sinus and he is still on antibiotic ventilation with Eliquis. He remains table in regards to her renal function. Creatinine is at 1.28. No significant cough or sputum production. No other complaints otherwise for now. He did have a bout of hypoglycemia earlier this morning that was treated. He is currently asymptomatic. Objective - Vital Signs Vital signs: Vital Signs Temp 97.1 F L 12/02/18 12:00 Pulse 65 12/02/18 12:00 Resp 18 12/02/18 12:00 BP 162/74 12/02/18 12:00 Pulse Ox 93 L 12/02/18 12:00 Intake & Output 12/01/18 12/02/18 12/02/18 18:59 06:59 18:59 Intake Total 422 118 462 Output Total 650 440 Balance -228 -322 462 Weight 98.5 kg Intake: Intake, IV Titration 100 Amount Piperacillin-Tazobactam 3 100 .375 gm In Sodium Chloride 0.9% 100 ml @ 25 mls/hr IVPB Q8H [facility] Rx#: [id number] Oral 322 118 462 Output: Urine 650 440 Other: Voiding Method Urinal # Voids 300 1 - Exam GENERAL EXAM: Alert, active, comfortable in no apparent distress. HEAD: Normocephalic. EYES: Normal reaction of pupils, equal size. Ocular degeneration. NOSE: Clear with pink turbinates. THROAT: No erythema or exudates. NECK: No masses, no JVD. CHEST: No chest wall deformity. LUNGS: Equal air entry with crackles in the posterior bases. CVS: S1 and S2 normal with no audible murmur, irregular rhythm. ABDOMEN: No hepatosplenomegaly, normal bowel sounds, no guarding or rigidity. SPINE: No scoliosis or deformity SKIN: No rashes CENTRAL NERVOUS SYSTEM: No focal deficits, tone is normal in all 4 extremities. EXTREMITIES: There is trace peripheral edema. No clubbing, no cyanosis. Peripheral pulses are intact. - Labs CBC & Chem 7: 12/02/18 05:07 12/02/18 05:07 Labs: Abnormal Lab Results - Last 24 Hours (Table) 12/01/18 12/01/18 12/02/18 Range/Units 17:00 20:56 05:07 RBC (4.30-5.90) m/uL Hgb (13.0-17.5) gm/dL Hct (39.0-53.0) % MCV (80.0-100.0) fL MCHC (31.0-37.0) g/dL Chloride 113 H (98-107) mmol/L BUN 43 H (9-20) mg/dL Creatinine 1.85 H (0.66-1.25) mg/dL Glucose 40 L* (74-99) mg/dL POC Glucose (mg/dL) 133 H 242 H (75-99) mg/dL Hemoglobin A1c (4.0-6.0) % Magnesium 2.6 H (1.6-2.3) mg/dL Total Protein 5.2 L (6.3-8.2) g/dL Albumin 2.8 L (3.5-5.0) g/dL 12/02/18 12/02/18 12/02/18 Range/Units 05:07 05:07 11:18 RBC 2.97 L (4.30-5.90) m/uL Hgb 9.5 L (13.0-17.5) gm/dL Hct 30.9 L (39.0-53.0) % MCV 104.3 H (80.0-100.0) fL MCHC 30.8 L (31.0-37.0) g/dL Chloride (98-107) mmol/L BUN (9-20) mg/dL Creatinine (0.66-1.25) mg/dL Glucose (74-99) mg/dL POC Glucose (mg/dL) 153 H (75-99) mg/dL Hemoglobin A1c 7.5 H (4.0-6.0) % Magnesium (1.6-2.3) mg/dL Total Protein (6.3-8.2) g/dL Albumin (3.5-5.0) g/dL Assessment and Plan Plan: #1 Acute on chronic hypoxic respiratory failure secondary to suspected health acquired healthcare associated pneumonia. The patient continues to have a constellation of the right lung on today's chest x-ray and the patient is covered with IV Zosyn. Despite that, the patient is feeling better clinically and we were able to wean down the FiO2 down to 4 L per minute nasal cannula. No significant sputum production. He was provided a incentive spirometer. #2 Acute exacerbation of chronic diastolic congestive heart failure. The patient has a diastolic heart failure with his revealed on the echocardiogram that was done in October 2018. The patient has a moderate degree of concentric left ventricular hypertrophy. Ejection fraction of 55-60%. He has mild aortic sclerosis. No evidence of any pulmonary hypertension. No evidence of any pericardial effusion. 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 #4 History of atrial fibrillation currently in sinus rhythm. Anticoagulated with Eliquis. #5 Chronic kidney disease stage 3/4. The patient's creatinine remains stable. #6 Hyperkalemia, recovered and the potassium level is down to 4.8 #7 Diabetes mellitus, type II. #8 History of thyroid cancer, hypothyroidism. #9 Hypertension. #10 Anxiety/depression. #11 Macular degeneration. #12 Coronary artery disease with previous stent placement. #13 History of chronic tobacco dependence. plan provide this patient incentive spirometer. Continue IV Zosyn. Repeat chest x- ray in the morning. Rest of the medication will be kept unchanged. Monitor the blood sugar and avoid any hypoglycemic attacks. The patient is currently on a prednisone burst taper started with 40 mg and this will be tapered gradually over the next 7-10 days.
[2018-12-02] MEDS: ONDANSETRON 4 MG/2 ML VIAL IVP PRN (15:24)
[2018-12-02 16:26] LABS: Glucose,Whole Blood 249 mg/dL (75-99)
[2018-12-02] MEDS: HYDROmorphone 0.5 MG/0.5 ML SYRINGE IVP PRN (17:07)
[2018-12-02] MEDS: IOPAMIDOL-300 CONTRAST 30 ML VIAL (ORAL USE) PO PRN ×2 (17:17→18:15)
--- NOTE | 2018-12-02 19:28 | CT ---
EXAMINATION TYPE: CT abdomen pelvis wo con DATE OF EXAM: 12/02/2018 COMPARISON: None HISTORY: Abdominal pain. CT DLP: 856.1 mGycm Automated exposure control for dose reduction was used. TECHNIQUE: Helical acquisition of images was performed from the lung bases through the pelvis. FINDINGS: There are moderate bilateral pleural effusions. There is basilar pulmonary infiltrates and atelectasi s. There are small multiple calcified gallstones. The bile ducts are not dilated. Liver shows no focal d efect. Spleen has normal size. There is pancreatic atrophy. There is no evidence of pancreatic mass. There is no adrenal mass. Kidneys have normal size. There are left renal cortical cysts that measure up to 2 cm. There is no hydronephrosis. Abdominal aorta is atheromatous. There are numerous diverticu la in the sigmoid colon. Small bowel appears normal. There is no evidence of a bowel obstruction. The re is subcutaneous edema over the lower lumbar spine. There is no retroperitoneal adenopathy. Bladder distends smoothly. There is no inguinal hernia. There is no free fluid in the pelvis. Appendix is not seen. There is no sign of appendicitis. There is no mesenteric edema or adenopathy. IMPRESSION: BILATERAL PLEURAL EFFUSIONS THAT COULD RELATE TO CONGESTIVE HEART FAILURE. SUBCUTANEOUS EDEMA ALSO CO NSISTENT WITH CONGESTIVE HEART FAILURE. ATHEROMATOUS AORTA. EXTENSIVE COLONIC DIVERTICULOSIS WITHOUT DIVERTICULITIS. GALLSTONES.
[2018-12-02 20:54] LABS: Glucose,Whole Blood 219 mg/dL (75-99)
[2018-12-02] MEDS: ATORVASTATIN 20 MG TAB PO SCH (21:13)
[2018-12-02] MEDS: TAMSULOSIN 0.4 MG CAP.ER.24H PO SCH (21:13)
[2018-12-02] MEDS: INSULIN DETEMIR 100 UNIT/ML 10 ML VIAL SQ SCH (22:02)
[2018-12-03] MEDS: ACETAMINOPHEN TAB 325 MG TAB PO SCH ×7 (01:18→23:24)
[2018-12-03] MEDS: HYDROmorphone 0.5 MG/0.5 ML SYRINGE IVP PRN (01:23)
[2018-12-03] MEDS: PIPERACILLIN-TAZOBACTAM 3.375 GM in SODIUM CHLORIDE 0.9% 100 ML IVPB SCH ×3 (05:49→20:40)
[2018-12-03 06:20] LABS: Glucose,Whole Blood 142 mg/dL (75-99)
[2018-12-03] MEDS: INSULIN ASPART 100 UNIT/ML 1 ML 10 ML VIAL SQ SCH ×4 (06:20→21:16)
[2018-12-03] MEDS: LEVOTHYROXINE 88 MCG TAB PO SCH (06:23)
[2018-12-03] MEDS: PANTOPRAZOLE 40 MG TABLET PO SCH (06:23)
[2018-12-03 06:49] LABS: Basophils % (A) 0 %; Eosinophils # (A) 0.1 k/uL (0-0.7); Eosinophils % (A) 1 %; HCT 31.6 % (39.0-53.0); HGB 9.6 gm/dL (13.0-17.5); Hypochromasia Marked; Lymphocytes # (A) 0.8 k/uL (1.0-4.8); Lymphocytes % (A) 12 %; MCHC 30.3 g/dL (31.0-37.0); MCV 105.8 fL (80.0-100.0); Macrocytosis Moderate; Mean Platelet Volume 6.8; Monocytes # (A) 0.5 k/uL (0-1.0); Monocytes % (A) 7 %; Neutrophils # (A) 5.3 k/uL (1.3-7.7); Neutrophils % (A) 78 %; Platelet Count 273 k/uL (150-450); RBC 2.99 m/uL (4.30-5.90); RDW 14.2 % (11.5-15.5); WBC 6.8 k/uL (3.8-10.6)
[2018-12-03] MEDS: IPRATROPIUM-ALBUTEROL 3 ML NEB INHALATION SCH ×4 (06:58→19:31)
[2018-12-03 07:09] LABS: Albumin 2.8 g/dL (3.5-5.0); Calcium 8.6 mg/dL (8.4-10.2); Total Bilirubin 0.4 mg/dL (0.2-1.3); Total Protein 5.1 g/dL (6.3-8.2)
[2018-12-03 07:34] LABS: Potassium 4.7 mmol/L (3.5-5.1)
--- NOTE | 2018-12-03 09:27 | XR ---
EXAMINATION TYPE: XR chest 2V DATE OF EXAM: 12/03/2018 COMPARISON: Chest x-ray from yesterday HISTORY: Shortness of breath. TECHNIQUE: Frontal and lateral views of the chest are obtained. FINDINGS: Low lung volumes are redemonstrated. There is persistent elevated right hemidiaphragm. Blun ting of bilateral posterior costophrenic angles is consistent with small bilateral pleural effusions. Improved aeration right midlung laterally is noted. Improving central vascular congestion is present . The cardiac silhouette size remains mildly enlarged. The osseous structures are intact. IMPRESSION: Persistent mild cardiomegaly with improving central vascular congestion and focal right hilar infiltrate. Persistent small to tiny bilateral pleural effusions are noted.
[2018-12-03] MEDS: LACTULOSE 20 GM/30 ML CUP PO SCH ×3 (09:57→20:40)
[2018-12-03] MEDS: FAMOTIDINE 20 MG TAB PO SCH (09:58)
[2018-12-03] MEDS: ASPIRIN 81 MG PO SCH (09:58)
[2018-12-03] MEDS: predniSONE 20 MG TAB PO SCH (09:58)
[2018-12-03] MEDS: ATENOLOL 25 MG TAB PO SCH (09:58)
[2018-12-03] MEDS: hydrALAZINE HCL 50 MG TAB PO SCH ×3 (09:58→20:39)
[2018-12-03] MEDS: risperiDONE 1 MG TAB PO SCH ×2 (09:58→20:40)
[2018-12-03] MEDS: CITALOPRAM HYDROBROMIDE 20 MG TAB PO SCH (09:58)
[2018-12-03] MEDS: APIXABAN 2.5 MG TABLET PO SCH ×2 (09:58→20:40)
[2018-12-03] MEDS: CYANOCOBALAMIN 500 MCG TAB PO SCH (09:59)
[2018-12-03] MEDS: buPROPion 75 MG TAB PO SCH (09:59)
[2018-12-03] MEDS: DOCUSATE 100 MG CAP PO SCH ×2 (09:59→20:40)
[2018-12-03] MEDS: FLUTICASONE 50MCG/SPRAY NASAL 16GM EA NOSTRIL SCH (09:59)
[2018-12-03] MEDS: ONDANSETRON 4 MG/2 ML VIAL IVP PRN (10:04)
--- NOTE | 2018-12-03 10:57 | P.PN ---
Subjective Progress Note Date: 12/03/18 Interval history: this is a 83-year-old recently discharged to group home came back with symptoms shortness of breath. Patient appears to be mostly anxiety and patient when questioned clearly he is quite a bit anxious and he is quite a bit claustrophobic which was his main concern. Patient also has minimal cough with white to yellowish sputum production chest x-ray was read as left lower lobe pneumonia because of which patient was admitted for healthcare associated pneumonia patient was given Zosyn and levofloxacin. Patient doesn't have any fevers does have mild leukocytosis clinically doesn't appear to have pneumonia although Zosyn will be continued levofloxacin will be discontinued patient was believed to have heart failure as well although patient has some peripheral edema mild pitting patient doesn't have any other signs of CHF patient doesn't have any JVD no crackles on exam. I do not believe patient is in CHF exacerbation patient that creatinine is 1.9 baseline appears to be around 2.1 during his last hospitalization. Patient is probably more anxious rather than having pneumonia CHF ,cannot completely rule out pneumonia, therefore we'll continue antibiotics. IV diuretics discontinued with further diuretics as per nephrology. evaluated by psychiatry with inpatient mental health unit recommended,given his suicidal thoughts over the last week,daily hallucinations. On 11/30/2018 patient is now admitted to Dr. Pizano. On 11/29/2018 patient was discharged mental health unit but discharged on hold due to developing of hypoxic respiratory failure requiring BiPAP. Today patient remains confused. Per nursing staff patient was noncompliant with BiPAP. Creatinine improving to 1.70. BNP 7050. We'll consult cardiology services. Abdominal x-ray completed showing possibility for underlying ileus or enteritis , follow-up as indicated dissection is suspected clinically. Additional findings above. Dr. Nova has been consulted for GI services Chest x-ray completed showing interstitial edema situated by low lung volumes, right midlung atelectasis and small left pleural effusion with left basilar atelectasis. Suspicion for cardiogenic fluid overload however superimposed left perihilar pneumonia remains possible. Follow-up to resolution. Cardiology and pulmonary service is consulted Increased confusion. Psychiatry following Acute kidney injury. Nephrology following On 12/01/2018 patient is currently resting in bed. Patient at this time is complaining of some nausea. Dr. Nova is following for surgical services. Patient did report a large bowel movement yesterday. Cardiology services have been consulted. Nephrology services also following. Increased creatinine level. At this time patient denies chest pain or shortness breath. Patient denies nausea vomiting or diarrhea. Patient denies any urinary burning or frequency On 12/02/2018 patient is currently resting in bed. Per nursing staff patient is refusing to wear BiPAP. This time patient denies chest pain or shortness of breath. Patient denies nausea vomiting or diarrhea. Patient denies any urinary burning or frequency. Creatinine improving to 1.85. Patient was hypoglycemic this a.m. with a blood sugar 40. On 12/03/2017 patient is currently sitting up in chair. At this time patient is complaining of abdominal pain. CT of abdomen completed showing bilateral pleural effusions that could relate to congestive heart failure. Subcutaneous edema also consistent with congestive heart failure. Atheromatous aorta. Extensive colonic diverticulosis without diverticulitis. Gallstones. Dr. Nova for surgical services is following. Along with cardiology and pulmonary services. This time patient states improvement with shortness of breath. Patient denies chest pain. Patient denies any urinary burning or frequency Objective - Vital Signs Vital signs: Vital Signs Temp 98 F 12/03/18 00:00 Pulse 122 H 12/03/18 08:00 Resp 18 12/03/18 08:00 BP 138/84 12/03/18 08:00 Pulse Ox 94 L 12/03/18 08:00 Intake & Output 12/02/18 12/03/18 12/03/18 18:59 06:59 18:59 Intake Total 702 120 580 Output Total 250 Balance 702 -130 580 Weight 98 kg Intake: Intake, IV Titration 100 Amount Piperacillin-Tazobactam 3 100 .375 gm In Sodium Chloride 0.9% 100 ml @ 25 mls/hr IVPB Q8H [facility] Rx#: [id number] Oral 702 120 480 Output: Urine 250 Other: Voiding Method Urinal # Voids 1 - Exam Head normocephalic Neck supple Lungs diminished bilaterally Heart regular rate and rhythm S1-S2, no rub or gallop Abdomen is soft nontender nondistended positive bowel sounds no hepatosplenomegaly Extremities no edema - Labs CBC & Chem 7: 12/03/18 05:45 12/03/18 05:45 Labs: Abnormal Lab Results - Last 24 Hours (Table) 12/02/18 12/02/18 12/02/18 Range/Units 05:07 11:18 16:14 RBC (4.30-5.90) m/uL Hgb (13.0-17.5) gm/dL Hct (39.0-53.0) % MCV (80.0-100.0) fL MCHC (31.0-37.0) g/dL Lymphocytes # (1.0-4.8) k/uL Chloride (98-107) mmol/L BUN (9-20) mg/dL Creatinine (0.66-1.25) mg/dL Glucose (74-99) mg/dL POC Glucose (mg/dL) 153 H 249 H (75-99) mg/dL Hemoglobin A1c 7.5 H (4.0-6.0) % Total Protein (6.3-8.2) g/dL Albumin (3.5-5.0) g/dL 12/02/18 12/03/18 12/03/18 Range/Units 20:53 05:45 05:45 RBC 2.99 L (4.30-5.90) m/uL Hgb 9.6 L (13.0-17.5) gm/dL Hct 31.6 L (39.0-53.0) % MCV 105.8 H (80.0-100.0) fL MCHC 30.3 L (31.0-37.0) g/dL Lymphocytes # 0.8 L (1.0-4.8) k/uL Chloride 113 H (98-107) mmol/L BUN 39 H (9-20) mg/dL Creatinine 1.94 H (0.66-1.25) mg/dL Glucose 124 H (74-99) mg/dL POC Glucose (mg/dL) 219 H (75-99) mg/dL Hemoglobin A1c (4.0-6.0) % Total Protein 5.1 L (6.3-8.2) g/dL Albumin 2.8 L (3.5-5.0) g/dL 12/03/18 Range/Units 06:19 RBC (4.30-5.90) m/uL Hgb (13.0-17.5) gm/dL Hct (39.0-53.0) % MCV (80.0-100.0) fL MCHC (31.0-37.0) g/dL Lymphocytes # (1.0-4.8) k/uL Chloride (98-107) mmol/L BUN (9-20) mg/dL Creatinine (0.66-1.25) mg/dL Glucose (74-99) mg/dL POC Glucose (mg/dL) 142 H (75-99) mg/dL Hemoglobin A1c (4.0-6.0) % Total Protein (6.3-8.2) g/dL Albumin (3.5-5.0) g/dL Assessment and Plan Assessment: 1.Acute hypoxic respiratory failure multifactorial, possibly acute on chronic CHF-diastolic dysfunction, possibly healthcare associated pneumonia left lower lobe, anxiety. Chest x-ray completed showing interstitial edema accentuated by low lung volumes, right midlung atelectasis, and small left pleural effusion with left basilar atelectasis. Suspicion for cardiogenic fluid overload however superimposed left perihilar pneumonia remains possible. Follow-up to resolution. Dr. Marin for pulmonary care. Dr. Bella consulted for cardiology services. Patient currently maintained on Zosyn. Elevated d-dimer. VQ scan completed showing stable posterior perfusion defect right lower lobe, elevated right hemidiaphragm. Cardiology following. Lasix currently on hold due to prerenal insufficiency. Patient remains on prednisone 40 pulmonary services are following 2. major depressive disorder. Patient being followed by psychiatry 3. Recent stroke with some mild residual weakness in the right hand. 4. Paroximal Atrial fibrillation,currently sinus rhythm. maintained on eliquis 5. acute on Chronic kidney disease stage 4. Creatinine increasing to 2.03. Nephrology services have been reconsulted. Creatinine improving to 1.94 6.Type 2 diabetes mellitus 7. History of thyroid cancer,hypothyroid 8. Essential hypertension 9. gastric esophageal reflux disease 10. anxiety and depression. Evaluated by psychiatry, diagnosed with major depressive disorder with psychotic features. 11. Abdominal pain with Possible ileus. Abdominal x-ray completed showing possibly for Ileus or enteris. Follow-up as indicated if obstruction is suspected clinically. Per surgical solution services ileus appears to be resolving with bowel function evident. CT of abdomen and pelvis completed without contrast. Type showing bilateral pleural effusions that could relate to congestive heart failure. Subcutaneous edema also consistent with congestive heart failure. Athermatous Aorta. Extensive, chronic diverticulosis without diverticulitis. Gallstones. Dr. Nova is following for surgical services 12. Hypoglycemia. Blood sugar 40. Will discontinue aspart 5 units with meals. Continue sliding scale insulin and long-acting insulin coverage. Long- acting insulin has been decreased to 15 units subcu nightly. At sugars have improved DVT prophylaxis eliquis, GI prophylaxis Protonix. I performed an examination of the patient and discussed their management with the Nurse Practitioner. I have reviewed the Nurse Practitioner's notes and agree with the documented findings and plan of care
--- NOTE | 2018-12-03 11:29 | P.PN ---
Subjective Progress Note Date: 12/03/18 This is a very pleasant 83-year-old gentleman, he has a history of coronary artery disease with previous stent placement, diabetes mellitus, GERD, hyperlipidemia, hypertension, benign prostatic hypertrophy, obstructive sleep apnea without device, atrial fibrillation, carotid stenosis, hypothyroidism macular degeneration. He was admitted on 11/27/2018 with from an extended care facility with complaints of increasing shortness of breath, bilateral peripheral edema, anxiety and productive cough of white to yellow sputum. Chest x-ray revealed a left lower lobe pneumonia. A repeat chest x-ray was performed today which showed shifting airspace disease, worsening in the right midlung and right costophrenic angle, and improved in the left perihilar region and retrocardiac airspace, suggesting dependent pulmonary edema and/or atelectasis rather than pneumonia. Blood pressure 130/60 with a heart rate in the 60s, 95% on room air. White blood cell count 8.9, hemoglobin 9.5, platelet count 297. Sodium 141, potassium 4.8, BUN 43 and creatinine 1.8, patient today is resting comfortably in bed, denies any chest pain or shortness of breath. Blood sugar 40 this morning. 12/03/2018 Patient seen and examined this morning, sitting up in the chair at bedside, complaining of some mild abdominal discomfort. He did undergo a CT of the abdomen which revealed bilateral pleural effusions extensive colonic diverticulosis without any evidence of diverticulitis, gallstones. He does state overall his breathing is improved today. Diuretics continue to be on hold per nephrology. Blood pressure 138/80 with a heart rate of 106-120 this morning, 94% on 4 L of oxygen. Objective - Vital Signs Vital signs: Vital Signs Temp 98 F 12/03/18 00:00 Pulse 76 12/03/18 11:08 Resp 14 12/03/18 10:57 BP 138/84 12/03/18 08:00 Pulse Ox 94 L 12/03/18 08:00 Intake & Output 12/02/18 12/03/18 12/03/18 18:59 06:59 18:59 Intake Total 702 120 580 Output Total 250 Balance 702 -130 580 Weight 98 kg Intake: Intake, IV Titration 100 Amount Piperacillin-Tazobactam 3 100 .375 gm In Sodium Chloride 0.9% 100 ml @ 25 mls/hr IVPB Q8H [facility] Rx#: [id number] Oral 702 120 480 Output: Urine 250 Other: Voiding Method Urinal # Voids 1 - Exam GENERAL EXAM: Alert, active, comfortable in no apparent distress. HEAD: Normocephalic. EYES: Normal reaction of pupils, equal size. Ocular degeneration. NOSE: Clear with pink turbinates. THROAT: No erythema or exudates. NECK: No masses, no JVD. CHEST: No chest wall deformity. LUNGS: Equal air entry with crackles in the posterior bases. CVS: S1 and S2 normal with no audible murmur, irregular rhythm. ABDOMEN: No hepatosplenomegaly, normal bowel sounds, no guarding or rigidity. SPINE: No scoliosis or deformity SKIN: No rashes CENTRAL NERVOUS SYSTEM: No focal deficits, tone is normal in all 4 extremities. EXTREMITIES: There is trace peripheral edema. No clubbing, no cyanosis. Peripheral pulses are intact. - Labs CBC & Chem 7: 12/03/18 05:45 12/03/18 05:45 Labs: Abnormal Lab Results - Last 24 Hours (Table) 12/02/18 12/02/18 12/02/18 Range/Units 05:07 16:14 20:53 RBC (4.30-5.90) m/uL Hgb (13.0-17.5) gm/dL Hct (39.0-53.0) % MCV (80.0-100.0) fL MCHC (31.0-37.0) g/dL Lymphocytes # (1.0-4.8) k/uL Chloride (98-107) mmol/L BUN (9-20) mg/dL Creatinine (0.66-1.25) mg/dL Glucose (74-99) mg/dL POC Glucose (mg/dL) 249 H 219 H (75-99) mg/dL Hemoglobin A1c 7.5 H (4.0-6.0) % Total Protein (6.3-8.2) g/dL Albumin (3.5-5.0) g/dL 12/03/18 12/03/18 12/03/18 Range/Units 05:45 05:45 06:19 RBC 2.99 L (4.30-5.90) m/uL Hgb 9.6 L (13.0-17.5) gm/dL Hct 31.6 L (39.0-53.0) % MCV 105.8 H (80.0-100.0) fL MCHC 30.3 L (31.0-37.0) g/dL Lymphocytes # 0.8 L (1.0-4.8) k/uL Chloride 113 H (98-107) mmol/L BUN 39 H (9-20) mg/dL Creatinine 1.94 H (0.66-1.25) mg/dL Glucose 124 H (74-99) mg/dL POC Glucose (mg/dL) 142 H (75-99) mg/dL Hemoglobin A1c (4.0-6.0) % Total Protein 5.1 L (6.3-8.2) g/dL Albumin 2.8 L (3.5-5.0) g/dL Assessment and Plan Plan: Assessment and plan #1 Acute on chronic hypoxic respiratory failure secondary to suspected health acquired healthcare associated pneumonia. #2 Acute exacerbation of chronic diastolic congestive heart failure. 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 #4 History of atrial fibrillation currently in sinus rhythm. Anticoagulated with Eliquis. #5 Chronic kidney disease stage 3/4. #6 Hyperkalemia. #7 Diabetes mellitus, type II. #8 History of thyroid cancer, hypothyroidism. #9 Hypertension. #10 Anxiety/depression. #11 Macular degeneration. #12 Coronary artery disease with previous stent placement. #13 History of chronic tobacco dependence. #14 Ischemic cardiomyopathy. Plan At this point in time, patient's diuretics are currently on hold because of abnormal renal function, nephrology is following. We will increase the dose of beta jes for more optimal heart rate control. DNP note has been reviewed, I agree with a documented findings and plan of care. Patient was seen and examined.
[2018-12-03 11:33] LABS: Glucose,Whole Blood 235 mg/dL (75-99)
[2018-12-03] MEDS: LORazepam 1 MG TAB PO PRN ×2 (12:22→20:40)
--- NOTE | 2018-12-03 12:26 | P.PN ---
Subjective Patient is seen in follow-up for acute kidney injury on chronic any disease. 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 Creatinine was near 1.4 in October 2018. It has been staying in the range of 1.7-2 recently. Patient admits to good urine output. No vomiting or diarrhea. No significant cough. Hemodynamically stable. Vital signs are stable. General: The patient appeared well nourished and normally developed. HEENT: Head exam is unremarkable. Neck is without jugular venous distension. LUNGS: Lungs are clear to auscultation and percussion. Breath sounds decreased. HEART: Rate and Rhythm are regular. First and second heart sounds normal. No murmurs, rubs or gallops. ABDOMEN: Abdominal exam reveals normal bowel sounds. Non-tender and non- distended. No evidence of peritonitis. EXTREMITITES: No clubbing, cyanosis, or edema. Objective - Vital Signs Vital signs: Vital Signs Temp 98 F 12/03/18 00:00 Pulse 76 12/03/18 11:08 Resp 14 12/03/18 10:57 BP 138/84 12/03/18 08:00 Pulse Ox 94 L 12/03/18 08:00 Intake & Output 12/02/18 12/03/18 12/03/18 18:59 06:59 18:59 Intake Total 702 120 580 Output Total 250 Balance 702 -130 580 Weight 98 kg Intake: Intake, IV Titration 100 Amount Piperacillin-Tazobactam 3 100 .375 gm In Sodium Chloride 0.9% 100 ml @ 25 mls/hr IVPB Q8H [facility], [facility]1983 Rx#: [id number] Oral 702 120 480 Output: Urine 250 Other: Voiding Method Urinal # Voids 1 - Labs CBC & Chem 7: 12/03/18 05:45 12/03/18 05:45 Labs: Abnormal Lab Results - Last 24 Hours (Table) 12/02/18 12/02/18 12/02/18 Range/Units 05:07 16:14 20:53 RBC (4.30-5.90) m/uL Hgb (13.0-17.5) gm/dL Hct (39.0-53.0) % MCV (80.0-100.0) fL MCHC (31.0-37.0) g/dL Lymphocytes # (1.0-4.8) k/uL Chloride (98-107) mmol/L BUN (9-20) mg/dL Creatinine (0.66-1.25) mg/dL Glucose (74-99) mg/dL POC Glucose (mg/dL) 249 H 219 H (75-99) mg/dL Hemoglobin A1c 7.5 H (4.0-6.0) % Total Protein (6.3-8.2) g/dL Albumin (3.5-5.0) g/dL 12/03/18 12/03/18 12/03/18 Range/Units 05:45 05:45 06:19 RBC 2.99 L (4.30-5.90) m/uL Hgb 9.6 L (13.0-17.5) gm/dL Hct 31.6 L (39.0-53.0) % MCV 105.8 H (80.0-100.0) fL MCHC 30.3 L (31.0-37.0) g/dL Lymphocytes # 0.8 L (1.0-4.8) k/uL Chloride 113 H (98-107) mmol/L BUN 39 H (9-20) mg/dL Creatinine 1.94 H (0.66-1.25) mg/dL Glucose 124 H (74-99) mg/dL POC Glucose (mg/dL) 142 H (75-99) mg/dL Hemoglobin A1c (4.0-6.0) % Total Protein 5.1 L (6.3-8.2) g/dL Albumin 2.8 L (3.5-5.0) g/dL 12/03/18 Range/Units 11:32 RBC (4.30-5.90) m/uL Hgb (13.0-17.5) gm/dL Hct (39.0-53.0) % MCV (80.0-100.0) fL MCHC (31.0-37.0) g/dL Lymphocytes # (1.0-4.8) k/uL Chloride (98-107) mmol/L BUN (9-20) mg/dL Creatinine (0.66-1.25) mg/dL Glucose (74-99) mg/dL POC Glucose (mg/dL) 235 H (75-99) mg/dL Hemoglobin A1c (4.0-6.0) % Total Protein (6.3-8.2) g/dL Albumin (3.5-5.0) g/dL Assessment and Plan Plan: Assessment: 1. Chronic kidney disease stage IIIB/4 secondary to diabetic kidney disease with baseline creatinine now near 1.7-2. It was 1.4 in October 2018. 2. History of urinary retention. Currently does not have a Lamas catheter. 3. Pneumonia maintained on antibiotics. 4. BPH maintained on Flomax. 5. Diabetes mellitus. 6. Benign hypertension. Controlled. Plan: Maintain current anti-hypertensives. Encourage oral intake. Avoid nephrotoxins.
--- NOTE | 2018-12-03 13:50 | P.PN ---
Subjective Progress Note Date: 12/03/18 Patient seen and examined at bedside. He complains of abdominal pain earlier today and yesterday. He is tolerating a diet but does complain of some nausea and has been having bowel movements. He does state that when he has high levels of anxiety, he does feel like he has an upset stomach. Currently, he states that his abdominal pain is relieved. Objective - Vital Signs Vital signs: Vital Signs Temp 97.2 F L 12/03/18 12:00 Pulse 124 H 12/03/18 12:00 Resp 18 12/03/18 12:00 BP 127/76 12/03/18 12:00 Pulse Ox 95 12/03/18 12:00 Intake & Output 12/02/18 12/03/18 12/03/18 18:59 06:59 18:59 Intake Total 702 120 802 Output Total 250 Balance 702 -130 802 Weight 98 kg Intake: Intake, IV Titration 100 Amount Piperacillin-Tazobactam 3 100 .375 gm In Sodium Chloride 0.9% 100 ml @ 25 mls/hr IVPB Q8H [facility] Rx#: [id number] Oral 702 120 702 Output: Urine 250 Other: Voiding Method Urinal # Voids 1 - Constitutional General appearance: Present: cooperative, no acute distress - EENT Eyes: Present: PERRLA - Respiratory Details: No difficulty with respiration - Gastrointestinal Gastrointestinal Comment(s): Soft, mild distention, no rebound, no guarding, nontender - Psychiatric Psychiatric: Present: A&O x's 3 - Labs CBC & Chem 7: 12/03/18 05:45 12/03/18 05:45 Labs: Abnormal Lab Results - Last 24 Hours (Table) 12/02/18 12/02/18 12/03/18 Range/Units 16:14 20:53 05:45 RBC 2.99 L (4.30-5.90) m/uL Hgb 9.6 L (13.0-17.5) gm/dL Hct 31.6 L (39.0-53.0) % MCV 105.8 H (80.0-100.0) fL MCHC 30.3 L (31.0-37.0) g/dL Lymphocytes # 0.8 L (1.0-4.8) k/uL Chloride (98-107) mmol/L BUN (9-20) mg/dL Creatinine (0.66-1.25) mg/dL Glucose (74-99) mg/dL POC Glucose (mg/dL) 249 H 219 H (75-99) mg/dL Total Protein (6.3-8.2) g/dL Albumin (3.5-5.0) g/dL 12/03/18 12/03/18 12/03/18 Range/Units 05:45 06:19 11:32 RBC (4.30-5.90) m/uL Hgb (13.0-17.5) gm/dL Hct (39.0-53.0) % MCV (80.0-100.0) fL MCHC (31.0-37.0) g/dL Lymphocytes # (1.0-4.8) k/uL Chloride 113 H (98-107) mmol/L BUN 39 H (9-20) mg/dL Creatinine 1.94 H (0.66-1.25) mg/dL Glucose 124 H (74-99) mg/dL POC Glucose (mg/dL) 142 H 235 H (75-99) mg/dL Total Protein 5.1 L (6.3-8.2) g/dL Albumin 2.8 L (3.5-5.0) g/dL Assessment and Plan Plan: 83-year-old male with concern of ileus that has resolved and complaint of abdominal pain - The patient's is at bedside. I did have a long discussion with the patient and the patient's . I did discuss the CT of the abdomen and pelvis that did not show any significant acute findings with the bowel. The patient and the patient's did state that with a high level of anxiety, the patient does have a history of an upset stomach. The patient did receive Ativan for his anxiety earlier today and states that that resolved his abdominal pain. He continues to have bowel function and he is tolerating his diet without any emesis episodes. At this point, we will add Bentyl for abdominal discomfort and otherwise managed medically.
--- NOTE | 2018-12-03 13:53 | P.PN ---
Subjective Progress Note Date: 12/03/18 Principal diagnosis: Acute on chronic hypoxic respiratory failure secondary to suspected healthcare acquired pneumonia, acute exacerbation of chronic diastolic congestive heart failure On today's evaluation of 12/02/2018, seeing this patient for a follow-up. The patient is known to have coronary artery disease with previous coronary stent placement. He is known to have diabetes mellitus, hypertension, hyperlipidemia , chronic atrial fibrillation, obstructive sleep apnea for which she is not utilizing any form of CPAP therapy in addition to current artery stenosis and macular degeneration. The patient presented to hospital because of worsening shortness of breath. He was quite hypoxic and initially was on 5 L of oxygen by nasal cannula saturation was in the low 90s. We are in the process of weaning the patient's FiO2 down. Currently is on 4 L of oxygen by nasal cannula. Pulse ox 94%. Less short of breath. He is on accommodation of antibiotics and bronchodilators and steroids. The patient is currently on IV Zosyn. The chest x-ray from today shows small lung volumes. There is some mild four-vessel congestion could be related to underlying diastolic heart failure. Right lung pneumonia cannot be completely excluded. He continues to have some residual weakness on the right side related to a previous CVA. His cardiac rhythm is sinus and he is still on antibiotic ventilation with Eliquis. He remains table in regards to her renal function. Creatinine is at 1.28. No significant cough or sputum production. No other complaints otherwise for now. He did have a bout of hypoglycemia earlier this morning that was treated. He is currently asymptomatic. On 12/01/2018 patient seen in follow-up on selective care unit, currently on 4 L per nasal cannula, pulse ox is 95%, afebrile, hemodynamically stable, reading easier, no pulmonary complaints, no cough no chest congestion, his biggest complaint today is diarrhea, and abdominal distention. He had one episode of diarrhea this morning, CT of abdomen and pelvis was obtained yesterday, and showed no free fluid in the pelvis, no sign of appendicitis, no mesenteric edema or adenopathy, small multiple calcified gallstones, bile ducts were not dilated, liver shows no focal defects, spleen was within normal size, no pancreatic mass, no adrenal mass, kidneys were within normal limits. No sign of bowel obstruction. Lung sounds are clear, patient is working on his incentive spirometer, although his effort is poor, is only achieving to 50 and occasionally 500 on it today. His chest x-ray showed persistent mild cardiomegaly with improving central vascular congestion and focal right hilar infiltrate, persistent small to tiny bilateral pleural effusions. Patient is improving, no fever or chills. Objective - Vital Signs Vital signs: Vital Signs Temp 97.2 F L 12/03/18 12:00 Pulse 124 H 12/03/18 12:00 Resp 18 12/03/18 12:00 BP 127/76 12/03/18 12:00 Pulse Ox 95 12/03/18 12:00 Intake & Output 12/02/18 12/03/18 12/03/18 18:59 06:59 18:59 Intake Total 702 120 802 Output Total 250 Balance 702 -130 802 Weight 98 kg Intake: Intake, IV Titration 100 Amount Piperacillin-Tazobactam 3 100 .375 gm In Sodium Chloride 0.9% 100 ml @ 25 mls/hr IVPB Q8H [facility] Rx#: [id number] Oral 702 120 702 Output: Urine 250 Other: Voiding Method Urinal # Voids 1 - Exam GENERAL EXAM: Alert, 83-year-old white male, currently on 4 L per nasal cannula comfortable in no apparent distress. HEAD: Normocephalic/atraumatic. EYES: Normal reaction of pupils, equal size. Conjunctiva pink, sclera white. NOSE: Clear with pink turbinates. THROAT: No erythema or exudates. NECK: No masses, no JVD, no thyroid enlargement, no adenopathy. CHEST: No chest wall deformity. Symmetrical expansion. LUNGS: Equal air entry with no crackles, wheeze, rhonchi or dullness. CVS: Regular rate and rhythm, normal S1 and S2, no gallops, no murmurs, no rubs ABDOMEN: Soft, slightly distended. No hepatosplenomegaly, normal bowel sounds, no guarding or rigidity. EXTREMITIES: No clubbing, no edema, no cyanosis, 2+ pulses and upper and lower extremities. MUSCULOSKELETAL: Muscle strength and tone normal. SPINE: No scoliosis or deformity SKIN: No rashes CENTRAL NERVOUS SYSTEM: Alert and oriented -3. No focal deficits, tone is normal in all 4 extremities. PSYCHIATRIC: Alert and oriented -3. Appropriate affect. Intact judgment and insight. - Labs CBC & Chem 7: 12/03/18 05:45 12/03/18 05:45 Labs: Abnormal Lab Results - Last 24 Hours (Table) 12/02/18 12/02/18 12/03/18 Range/Units 16:14 20:53 05:45 RBC 2.99 L (4.30-5.90) m/uL Hgb 9.6 L (13.0-17.5) gm/dL Hct 31.6 L (39.0-53.0) % MCV 105.8 H (80.0-100.0) fL MCHC 30.3 L (31.0-37.0) g/dL Lymphocytes # 0.8 L (1.0-4.8) k/uL Chloride (98-107) mmol/L BUN (9-20) mg/dL Creatinine (0.66-1.25) mg/dL Glucose (74-99) mg/dL POC Glucose (mg/dL) 249 H 219 H (75-99) mg/dL Total Protein (6.3-8.2) g/dL Albumin (3.5-5.0) g/dL 12/03/18 12/03/18 12/03/18 Range/Units 05:45 06:19 11:32 RBC (4.30-5.90) m/uL Hgb (13.0-17.5) gm/dL Hct (39.0-53.0) % MCV (80.0-100.0) fL MCHC (31.0-37.0) g/dL Lymphocytes # (1.0-4.8) k/uL Chloride 113 H (98-107) mmol/L BUN 39 H (9-20) mg/dL Creatinine 1.94 H (0.66-1.25) mg/dL Glucose 124 H (74-99) mg/dL POC Glucose (mg/dL) 142 H 235 H (75-99) mg/dL Total Protein 5.1 L (6.3-8.2) g/dL Albumin 2.8 L (3.5-5.0) g/dL Assessment and Plan Plan: Assessment: #1. Acute hypoxemic respiratory failure secondary to acute exacerbation of congestive heart failure with diastolic dysfunction, chest x-ray showed interstitial edema, oxygen by low lung volumes, multiple left pleural effusion, and left basilar atelectasis. #2. Patient was treated for possibility of healthcare acquired pneumonia, initial chest x-ray showed a new left lower lobe infiltrate, could not exclude possibility of pneumonia #3. Acute kidney injury improving from last admission. Nephrology is following , patient did have some urinary retention during last admission #4. Abdominal distention, abdominal x-ray showed underlying ileus or enteritis #5. Recent lacunar infarct #6. Chronic kidney disease stage IV #7. Paroxysmal atrial fibrillation on Eliquis, currently in sinus #8. Hyperkalemia #9. Type 2 diabetes mellitus #10. History of hypothyroidism #11. Hypertension #12. GERD #13. Anxiety and depression #14. Elevated right hemidiaphragm with right lower lobe density related to atelectasis #15. Coronary artery disease with previous stenting #16. Obstructive sleep apnea not using CPAP Plan: Follow-up chest x-ray today has been reviewed with Dr. Zhao, shows improving central vascular congestion, and improvement of the focal right hilar infiltrate. Clinically patient is doing well, denies any worsening shortness of breath, currently on 4 L per nasal cannula, this can probably be weaned further, patient's pulse ox is 95%. He is working on his incentive spirometer, his effort is poor, encourage activity, encourage ambulation, encouraged patient to sit up in the chair, no fever or chills. Continue oral prednisone, continue current antibiotic coverage. Patient is complaining of diarrhea, and abdominal distention, send the stool for C. diff. I performed a history & physical examination of the patient and discussed their management with my nurse practitioner, Jody Whitfield. I reviewed the nurse practitioner's note and agree with the documented findings and plan of care. Lung sounds are positive for crackles over bilateral lower lobes. The findings and the impression was discussed with the patient. I attest to the documentation by the nurse practitioner. Time with Patient: Less than 30
[2018-12-03] MEDS: DICYCLOMINE 10 MG CAP PO SCH ×2 (15:25→20:39)
[2018-12-03 16:17] LABS: Glucose,Whole Blood 222 mg/dL (75-99)
[2018-12-03] MEDS: TAMSULOSIN 0.4 MG CAP.ER.24H PO SCH (20:39)
[2018-12-03] MEDS: ATORVASTATIN 20 MG TAB PO SCH (20:40)
[2018-12-03 21:00] LABS: Glucose,Whole Blood 234 mg/dL (75-99)
[2018-12-03] MEDS: MELATONIN 3 MG TABLET PO PRN (21:16)
[2018-12-03] MEDS: INSULIN DETEMIR 100 UNIT/ML 10 ML VIAL SQ SCH (21:17)
[2018-12-04] MEDS: HYDROmorphone 0.5 MG/0.5 ML SYRINGE IVP PRN ×3 (04:37→21:52)
[2018-12-04] MEDS: LORazepam 1 MG TAB PO PRN ×3 (04:37→22:00)
[2018-12-04] MEDS: ACETAMINOPHEN TAB 325 MG TAB PO SCH ×5 (05:50→22:00)
[2018-12-04] MEDS: PANTOPRAZOLE 40 MG TABLET PO SCH (05:52)
[2018-12-04] MEDS: LEVOTHYROXINE 88 MCG TAB PO SCH (05:52)
[2018-12-04] MEDS: PIPERACILLIN-TAZOBACTAM 3.375 GM in SODIUM CHLORIDE 0.9% 100 ML IVPB SCH ×2 (05:53→13:08)
[2018-12-04 05:56] LABS: Glucose,Whole Blood 63 mg/dL (75-99)
[2018-12-04] MEDS: INSULIN ASPART 100 UNIT/ML 1 ML 10 ML VIAL SQ SCH ×4 (06:05→21:54)
[2018-12-04 06:41] LABS: Glucose,Whole Blood 109 mg/dL (75-99)
[2018-12-04] MEDS: IPRATROPIUM-ALBUTEROL 3 ML NEB INHALATION SCH ×4 (07:14→19:55)
[2018-12-04 07:29] LABS: Basophils % (A) 0 %; Eosinophils # (A) 0.1 k/uL (0-0.7); Eosinophils % (A) 1 %; HCT 31.1 % (39.0-53.0); HGB 9.4 gm/dL (13.0-17.5); Hypochromasia Marked; Lymphocytes # (A) 0.8 k/uL (1.0-4.8); Lymphocytes % (A) 9 %; MCH 32.1 pg (25.0-35.0); MCHC 30.1 g/dL (31.0-37.0); MCV 106.4 fL (80.0-100.0); Macrocytosis Moderate; Mean Platelet Volume 7.1; Monocytes # (A) 0.7 k/uL (0-1.0); Monocytes % (A) 8 %; Neutrophils % (A) 80 %; Platelet Count 241 k/uL (150-450); RBC 2.92 m/uL (4.30-5.90); RDW 14.1 % (11.5-15.5); WBC 8.7 k/uL (3.8-10.6)
[2018-12-04 07:32] LABS: Albumin 2.7 g/dL (3.5-5.0); Calcium 8.7 mg/dL (8.4-10.2); Potassium 4.9 mmol/L (3.5-5.1); Total Bilirubin 0.4 mg/dL (0.2-1.3)
[2018-12-04] MEDS: hydrALAZINE HCL 50 MG TAB PO SCH ×3 (08:19→21:53)
[2018-12-04] MEDS: risperiDONE 1 MG TAB PO SCH ×2 (08:19→21:54)
[2018-12-04] MEDS: ASPIRIN 81 MG PO SCH (08:19)
[2018-12-04] MEDS: DICYCLOMINE 10 MG CAP PO SCH ×4 (08:19→21:53)
[2018-12-04] MEDS: APIXABAN 2.5 MG TABLET PO SCH ×2 (08:20→21:54)
[2018-12-04] MEDS: CITALOPRAM HYDROBROMIDE 20 MG TAB PO SCH (08:20)
[2018-12-04] MEDS: ATENOLOL 25 MG TAB PO SCH (08:20)
[2018-12-04] MEDS: predniSONE 20 MG TAB PO SCH (08:20)
[2018-12-04] MEDS: DOCUSATE 100 MG CAP PO SCH ×2 (08:20→21:55)
[2018-12-04] MEDS: CYANOCOBALAMIN 500 MCG TAB PO SCH (08:20)
[2018-12-04] MEDS: LACTULOSE 20 GM/30 ML CUP PO SCH ×3 (08:21→21:55)
[2018-12-04] MEDS: FLUTICASONE 50MCG/SPRAY NASAL 16GM EA NOSTRIL SCH (08:21)
[2018-12-04] MEDS: buPROPion 75 MG TAB PO SCH (08:23)
--- NOTE | 2018-12-04 11:33 | P.PN ---
Subjective Progress Note Date: 12/04/18 Interval history: this is a 83-year-old recently discharged to [facility] came back with symptoms shortness of breath. Patient appears to be mostly anxiety and patient when questioned clearly he is quite a bit anxious and he is quite a bit claustrophobic which was his main concern. Patient also has minimal cough with white to yellowish sputum production chest x-ray was read as left lower lobe pneumonia because of which patient was admitted for healthcare associated pneumonia patient was given Zosyn and levofloxacin. Patient doesn't have any fevers does have mild leukocytosis clinically doesn't appear to have pneumonia although Zosyn will be continued levofloxacin will be discontinued patient was believed to have heart failure as well although patient has some peripheral edema mild pitting patient doesn't have any other signs of CHF patient doesn't have any JVD no crackles on exam. I do not believe patient is in CHF exacerbation patient that creatinine is 1.9 baseline appears to be around 2.1 during his last hospitalization. Patient is probably more anxious rather than having pneumonia CHF ,cannot completely rule out pneumonia, therefore we'll continue antibiotics. IV diuretics discontinued with further diuretics as per nephrology. evaluated by psychiatry with inpatient mental health unit recommended,given his suicidal thoughts over the last week,daily hallucinations. On 11/30/2018 patient is now admitted to Dr. Pizano. On 11/29/2018 patient was discharged mental health unit but discharged on hold due to developing of hypoxic respiratory failure requiring BiPAP. Today patient remains confused. Per nursing staff patient was noncompliant with BiPAP. Creatinine improving to 1.70. BNP 7050. We'll consult cardiology services. Abdominal x-ray completed showing possibility for underlying ileus or enteritis , follow-up as indicated dissection is suspected clinically. Additional findings above. Dr. Nova has been consulted for GI services Chest x-ray completed showing interstitial edema situated by low lung volumes, right midlung atelectasis and small left pleural effusion with left basilar atelectasis. Suspicion for cardiogenic fluid overload however superimposed left perihilar pneumonia remains possible. Follow-up to resolution. Cardiology and pulmonary service is consulted Increased confusion. Psychiatry following Acute kidney injury. Nephrology following On 12/01/2018 patient is currently resting in bed. Patient at this time is complaining of some nausea. Dr. Nova is following for surgical services. Patient did report a large bowel movement yesterday. Cardiology services have been consulted. Nephrology services also following. Increased creatinine level. At this time patient denies chest pain or shortness breath. Patient denies nausea vomiting or diarrhea. Patient denies any urinary burning or frequency On 12/02/2018 patient is currently resting in bed. Per nursing staff patient is refusing to wear BiPAP. This time patient denies chest pain or shortness of breath. Patient denies nausea vomiting or diarrhea. Patient denies any urinary burning or frequency. Creatinine improving to 1.85. Patient was hypoglycemic this a.m. with a blood sugar 40. On 12/03/2017 patient is currently sitting up in chair. At this time patient is complaining of abdominal pain. CT of abdomen completed showing bilateral pleural effusions that could relate to congestive heart failure. Subcutaneous edema also consistent with congestive heart failure. Atheromatous aorta. Extensive colonic diverticulosis without diverticulitis. Gallstones. Dr. Nova for surgical services is following. Along with cardiology and pulmonary services. This time patient states improvement with shortness of breath. Patient denies chest pain. Patient denies any urinary burning or frequency On 12/04/2017 patient is currently resting in bed. Patient does state some improvement with abdominal pain. Patient was seen by surgical services. At this time patient states he is slight improvement with shortness of breath. Patient denies chest pain. Patient denies any urinary burning or frequency. Objective - Vital Signs Vital signs: Vital Signs Temp 97.2 F L 12/04/18 08:00 Pulse 54 L 12/04/18 08:00 Resp 20 12/04/18 08:00 BP 142/67 12/04/18 08:00 Pulse Ox 94 L 12/04/18 08:00 Intake & Output 12/03/18 12/04/18 12/04/18 18:59 06:59 18:59 Intake Total 1042 480 Output Total 950 Balance 1042 -950 480 Weight 98 kg 99 kg Intake: Intake, IV Titration 100 Amount Piperacillin-Tazobactam 3 100 .375 gm In Sodium Chloride 0.9% 100 ml @ 25 mls/hr IVPB Q8H [facility] Rx#: [id number] Oral 942 480 Output: Urine 600 Post Void Residual 350 Other: Voiding Method Urinal # Voids 1 1 # Bowel Movements 4 1 - Exam Head normocephalic Neck supple Lungs diminished bilaterally Heart regular rate and rhythm S1-S2, no rub or gallop Abdomen is soft nontender nondistended positive bowel sounds no hepatosplenomegaly Extremities no edema - Labs CBC & Chem 7: 12/04/18 06:56 12/04/18 06:56 Labs: Abnormal Lab Results - Last 24 Hours (Table) 12/03/18 12/03/18 12/03/18 Range/Units 11:32 16:14 20:58 RBC (4.30-5.90) m/uL Hgb (13.0-17.5) gm/dL Hct (39.0-53.0) % MCV (80.0-100.0) fL MCHC (31.0-37.0) g/dL Lymphocytes # (1.0-4.8) k/uL Chloride (98-107) mmol/L BUN (9-20) mg/dL Creatinine (0.66-1.25) mg/dL Glucose (74-99) mg/dL POC Glucose (mg/dL) 235 H 222 H 234 H (75-99) mg/dL Total Protein (6.3-8.2) g/dL Albumin (3.5-5.0) g/dL 12/04/18 12/04/18 12/04/18 Range/Units 05:55 06:40 06:56 RBC 2.92 L (4.30-5.90) m/uL Hgb 9.4 L (13.0-17.5) gm/dL Hct 31.1 L (39.0-53.0) % MCV 106.4 H (80.0-100.0) fL MCHC 30.1 L (31.0-37.0) g/dL Lymphocytes # 0.8 L (1.0-4.8) k/uL Chloride (98-107) mmol/L BUN (9-20) mg/dL Creatinine (0.66-1.25) mg/dL Glucose (74-99) mg/dL POC Glucose (mg/dL) 63 L 109 H (75-99) mg/dL Total Protein (6.3-8.2) g/dL Albumin (3.5-5.0) g/dL 12/04/18 Range/Units 06:56 RBC (4.30-5.90) m/uL Hgb (13.0-17.5) gm/dL Hct (39.0-53.0) % MCV (80.0-100.0) fL MCHC (31.0-37.0) g/dL Lymphocytes # (1.0-4.8) k/uL Chloride 114 H (98-107) mmol/L BUN 41 H (9-20) mg/dL Creatinine 1.92 H (0.66-1.25) mg/dL Glucose 101 H (74-99) mg/dL POC Glucose (mg/dL) (75-99) mg/dL Total Protein 5.0 L (6.3-8.2) g/dL Albumin 2.7 L (3.5-5.0) g/dL Assessment and Plan Assessment: 1.Acute hypoxic respiratory failure multifactorial, possibly acute on chronic CHF-diastolic dysfunction, possibly healthcare associated pneumonia left lower lobe, anxiety. Chest x-ray completed showing interstitial edema accentuated by low lung volumes, right midlung atelectasis, and small left pleural effusion with left basilar atelectasis. Suspicion for cardiogenic fluid overload however superimposed left perihilar pneumonia remains possible. Follow-up to resolution. Dr. Marin for pulmonary care. Dr. Bella consulted for cardiology services. Patient currently maintained on Zosyn. Elevated d-dimer. VQ scan completed showing stable posterior perfusion defect right lower lobe, elevated right hemidiaphragm. Cardiology following. Lasix currently on hold due to prerenal insufficiency. Patient remains on prednisone 40 pulmonary services are following 2. major depressive disorder. Patient being followed by psychiatry 3. Recent stroke with some mild residual weakness in the right hand. 4. Paroximal Atrial fibrillation,currently sinus rhythm. maintained on eliquis 5. acute on Chronic kidney disease stage 4. Creatinine increasing to 2.03. Nephrology services have been reconsulted. Creatinine improving to 1.94 6.Type 2 diabetes mellitus 7. History of thyroid cancer,hypothyroid 8. Essential hypertension 9. gastric esophageal reflux disease 10. anxiety and depression. Evaluated by psychiatry, diagnosed with major depressive disorder with psychotic features. Patient to be reevaluated by psych for discharge planning 11. Abdominal pain with Possible ileus. Abdominal x-ray completed showing possibly for Ileus or enteris. Follow-up as indicated if obstruction is suspected clinically. Per surgical solution services ileus appears to be resolving with bowel function evident. CT of abdomen and pelvis completed without contrast. Type showing bilateral pleural effusions that could relate to congestive heart failure. Subcutaneous edema also consistent with congestive heart failure. Athermatous Aorta. Extensive, chronic diverticulosis without diverticulitis. Gallstones. Per surgical services CT of abdomen and pelvis did not show any significant acute findings with bowel. Per surgical services of systemic could be influenced by high level of anxiety. Bentyl for abdominal discomfort has been added 12. Hypoglycemia. Blood sugar 40. Will discontinue aspart 5 units with meals. Continue sliding scale insulin and long-acting insulin coverage. Long- acting insulin has been decreased to 15 units subcu nightly. At sugars have improved DVT prophylaxis eliquis, GI prophylaxis Protonix. Discharge planning to return to [facility] vs. mental health unit admission I performed an examination of the patient and discussed their management with the Nurse Practitioner. I have reviewed the Nurse Practitioner's notes and agree with the documented findings and plan of care
--- NOTE | 2018-12-04 11:38 | P.PN ---
Subjective Progress Note Date: 12/04/18 This is a very pleasant 83-year-old gentleman, he has a history of coronary artery disease with previous stent placement, diabetes mellitus, GERD, hyperlipidemia, hypertension, benign prostatic hypertrophy, obstructive sleep apnea without device, atrial fibrillation, carotid stenosis, hypothyroidism macular degeneration. He was admitted on 11/27/2018 with from an extended care facility with complaints of increasing shortness of breath, bilateral peripheral edema, anxiety and productive cough of white to yellow sputum. Chest x-ray revealed a left lower lobe pneumonia. A repeat chest x-ray was performed today which showed shifting airspace disease, worsening in the right midlung and right costophrenic angle, and improved in the left perihilar region and retrocardiac airspace, suggesting dependent pulmonary edema and/or atelectasis rather than pneumonia. Blood pressure 130/60 with a heart rate in the 60s, 95% on room air. White blood cell count 8.9, hemoglobin 9.5, platelet count 297. Sodium 141, potassium 4.8, BUN 43 and creatinine 1.8, patient today is resting comfortably in bed, denies any chest pain or shortness of breath. Blood sugar 40 this morning. 12/03/2018 Patient seen and examined this morning, sitting up in the chair at bedside, complaining of some mild abdominal discomfort. He did undergo a CT of the abdomen which revealed bilateral pleural effusions extensive colonic diverticulosis without any evidence of diverticulitis, gallstones. He does state overall his breathing is improved today. Diuretics continue to be on hold per nephrology. Blood pressure 138/80 with a heart rate of 106-120 this morning, 94% on 4 L of oxygen. 12/04/2018 Patient seen and examined this morning, no specific complaints today. Blood pressure 136/78, heart rate in the 90s, 95% on room air. White blood cell count 8.7, hemoglobin 9.4, platelet count 241. Sodium 143, potassium 4.9, BUN 41 and creatinine 1.9. Objective - Vital Signs Vital signs: Vital Signs Temp 97.2 F L 12/04/18 08:00 Pulse 54 L 12/04/18 08:00 Resp 20 12/04/18 08:00 BP 142/67 12/04/18 08:00 Pulse Ox 94 L 12/04/18 08:00 Intake & Output 12/03/18 12/04/18 12/04/18 18:59 06:59 18:59 Intake Total 1042 480 Output Total 950 Balance 1042 -950 480 Weight 98 kg 99 kg Intake: Intake, IV Titration 100 Amount Piperacillin-Tazobactam 3 100 .375 gm In Sodium Chloride 0.9% 100 ml @ 25 mls/hr IVPB Q8H [facility] TO [facility] Rx#: [id number] Oral 942 480 Output: Urine 600 Post Void Residual 350 Other: Voiding Method Urinal # Voids 1 1 # Bowel Movements 4 1 - Exam GENERAL EXAM: Alert, active, comfortable in no apparent distress. HEAD: Normocephalic. EYES: Normal reaction of pupils, equal size. Ocular degeneration. NOSE: Clear with pink turbinates. THROAT: No erythema or exudates. NECK: No masses, no JVD. CHEST: No chest wall deformity. LUNGS: Equal air entry with crackles in the posterior bases. CVS: S1 and S2 normal with no audible murmur, irregular rhythm. ABDOMEN: No hepatosplenomegaly, normal bowel sounds, no guarding or rigidity. SPINE: No scoliosis or deformity SKIN: No rashes CENTRAL NERVOUS SYSTEM: No focal deficits, tone is normal in all 4 extremities. EXTREMITIES: There is trace peripheral edema. No clubbing, no cyanosis. Peripheral pulses are intact. - Labs CBC & Chem 7: 12/04/18 06:56 12/04/18 06:56 Labs: Abnormal Lab Results - Last 24 Hours (Table) 12/03/18 12/03/18 12/03/18 Range/Units 11:32 16:14 20:58 RBC (4.30-5.90) m/uL Hgb (13.0-17.5) gm/dL Hct (39.0-53.0) % MCV (80.0-100.0) fL MCHC (31.0-37.0) g/dL Lymphocytes # (1.0-4.8) k/uL Chloride (98-107) mmol/L BUN (9-20) mg/dL Creatinine (0.66-1.25) mg/dL Glucose (74-99) mg/dL POC Glucose (mg/dL) 235 H 222 H 234 H (75-99) mg/dL Total Protein (6.3-8.2) g/dL Albumin (3.5-5.0) g/dL 12/04/18 12/04/18 12/04/18 Range/Units 05:55 06:40 06:56 RBC 2.92 L (4.30-5.90) m/uL Hgb 9.4 L (13.0-17.5) gm/dL Hct 31.1 L (39.0-53.0) % MCV 106.4 H (80.0-100.0) fL MCHC 30.1 L (31.0-37.0) g/dL Lymphocytes # 0.8 L (1.0-4.8) k/uL Chloride (98-107) mmol/L BUN (9-20) mg/dL Creatinine (0.66-1.25) mg/dL Glucose (74-99) mg/dL POC Glucose (mg/dL) 63 L 109 H (75-99) mg/dL Total Protein (6.3-8.2) g/dL Albumin (3.5-5.0) g/dL 12/04/18 Range/Units 06:56 RBC (4.30-5.90) m/uL Hgb (13.0-17.5) gm/dL Hct (39.0-53.0) % MCV (80.0-100.0) fL MCHC (31.0-37.0) g/dL Lymphocytes # (1.0-4.8) k/uL Chloride 114 H (98-107) mmol/L BUN 41 H (9-20) mg/dL Creatinine 1.92 H (0.66-1.25) mg/dL Glucose 101 H (74-99) mg/dL POC Glucose (mg/dL) (75-99) mg/dL Total Protein 5.0 L (6.3-8.2) g/dL Albumin 2.7 L (3.5-5.0) g/dL Assessment and Plan Plan: Assessment and plan #1 Acute on chronic hypoxic respiratory failure secondary to suspected health acquired healthcare associated pneumonia. #2 Acute exacerbation of chronic diastolic congestive heart failure. 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 #4 History of atrial fibrillation currently in sinus rhythm. Anticoagulated with Eliquis. #5 Chronic kidney disease stage 3/4. #6 Hyperkalemia. #7 Diabetes mellitus, type II. #8 History of thyroid cancer, hypothyroidism. #9 Hypertension. #10 Anxiety/depression. #11 Macular degeneration. #12 Coronary artery disease with previous stent placement. #13 History of chronic tobacco dependence. #14 Ischemic cardiomyopathy. Plan At this point in time, patient's diuretics are currently on hold because of abnormal renal function, nephrology is following. Heart rate today under much better control. DNP note has been reviewed, I agree with a documented findings and plan of care. Patient was seen and examined.
--- NOTE | 2018-12-04 11:42 | P.PN ---
Subjective Patient is seen in follow-up for acute kidney injury on chronic any disease. 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 Creatinine was near 1.4 in October 2018. It has been staying in the range of 1.7-2 recently. Patient admits to good urine output. No vomiting or diarrhea. No significant cough. Hemodynamically stable. He's been having urinary retention again. He required straight catheterization this morning with 500 mL urine obtained. Vital signs are stable. General: The patient appeared well nourished and normally developed. HEENT: Head exam is unremarkable. Neck is without jugular venous distension. LUNGS: Lungs are clear to auscultation and percussion. Breath sounds decreased. HEART: Rate and Rhythm are regular. First and second heart sounds normal. No murmurs, rubs or gallops. ABDOMEN: Abdominal exam reveals normal bowel sounds. Non-tender and non- distended. No evidence of peritonitis. EXTREMITITES: No clubbing, cyanosis, or edema. Objective - Vital Signs Vital signs: Vital Signs Temp 97.2 F L 12/04/18 08:00 Pulse 54 L 12/04/18 08:00 Resp 20 12/04/18 08:00 BP 142/67 12/04/18 08:00 Pulse Ox 94 L 12/04/18 08:00 Intake & Output 12/03/18 12/04/18 12/04/18 18:59 06:59 18:59 Intake Total 1042 480 Output Total 950 Balance 1042 -950 480 Weight 98 kg 99 kg Intake: Intake, IV Titration 100 Amount Piperacillin-Tazobactam 3 100 .375 gm In Sodium Chloride 0.9% 100 ml @ 25 mls/hr IVPB Q8H [facility] Rx#: [id number] Oral 942 480 Output: Urine 600 Post Void Residual 350 Other: Voiding Method Urinal # Voids 1 1 # Bowel Movements 4 1 - Labs CBC & Chem 7: 12/04/18 06:56 12/04/18 06:56 Labs: Abnormal Lab Results - Last 24 Hours (Table) 12/03/18 12/03/18 12/04/18 Range/Units 16:14 20:58 05:55 RBC (4.30-5.90) m/uL Hgb (13.0-17.5) gm/dL Hct (39.0-53.0) % MCV (80.0-100.0) fL MCHC (31.0-37.0) g/dL Lymphocytes # (1.0-4.8) k/uL Chloride (98-107) mmol/L BUN (9-20) mg/dL Creatinine (0.66-1.25) mg/dL Glucose (74-99) mg/dL POC Glucose (mg/dL) 222 H 234 H 63 L (75-99) mg/dL Total Protein (6.3-8.2) g/dL Albumin (3.5-5.0) g/dL 12/04/18 12/04/18 12/04/18 Range/Units 06:40 06:56 06:56 RBC 2.92 L (4.30-5.90) m/uL Hgb 9.4 L (13.0-17.5) gm/dL Hct 31.1 L (39.0-53.0) % MCV 106.4 H (80.0-100.0) fL MCHC 30.1 L (31.0-37.0) g/dL Lymphocytes # 0.8 L (1.0-4.8) k/uL Chloride 114 H (98-107) mmol/L BUN 41 H (9-20) mg/dL Creatinine 1.92 H (0.66-1.25) mg/dL Glucose 101 H (74-99) mg/dL POC Glucose (mg/dL) 109 H (75-99) mg/dL Total Protein 5.0 L (6.3-8.2) g/dL Albumin 2.7 L (3.5-5.0) g/dL Assessment and Plan Plan: Assessment: 1. Chronic kidney disease stage IIIB/4 secondary to diabetic kidney disease with baseline creatinine now near 1.7-2. It was 1.4 in October 2018. 2. History of urinary retention. Currently does not have a Lamas catheter. However he is retaining urine again. 3. Pneumonia maintained on antibiotics. 4. BPH maintained on Flomax. 5. Diabetes mellitus. 6. Benign hypertension. Controlled. Plan: Maintain current anti-hypertensives. Encourage oral intake. Avoid nephrotoxins. Continue to monitor serial postvoid residuals. To insert Lamas catheter if persistently greater than 250 mL present. Obtain urology consultation if has persistent urinary retention. Maintain Flomax.
[2018-12-04 12:34] LABS: Glucose,Whole Blood 199 mg/dL (75-99)
--- NOTE | 2018-12-04 15:49 | US ---
EXAMINATION TYPE: US kidneys/renal and bladder DATE OF EXAM: 12/04/2018 COMPARISON: CLINICAL HISTORY: urinary retention. Patient unable to empty completely. Patient has a harper. Exam was performed portable EXAM MEASUREMENTS: Right Kidney: 9.1 x 4.0 x 4.8 cm Left Kidney: 10.3 x 5.2 x 5.7 cm Limited exam due to patient body habitus Right Kidney: No hydronephrosis or masses seen Left Kidney: Multiple cystic appearing lesions seen. Largest lateral - 2.7 x 2.6 x 2.5 cm Bladder: harper visualized Bilateral Jets not seen due to harper IMPRESSION: Left renal cysts appear simple.
--- NOTE | 2018-12-04 16:11 | P.GSCN ---
History of Present Illness Consult date: 12/04/18 Reason for Consult: Urinary retention History of present illness: The patient is an 83-year-old male admitted on 11/27 for evaluation of increasing shortness of breath which was felt to be related to pneumonia and/or CHF. He has been treated with antibiotics and has improved. He had a Lamas catheter in place at the time of admission which had originally been inserted on 2017. At that time apparently 1200 mL drained from his bladder. BUN/ creatinine were 41/2.45. When the patient was readmitted on 11/26 his BUN/ creatinine were 50/1.96. The patient had been started on tamsulosin in 2017. His catheter was removed on 11/27 and he has voided on his own since then. He has had some intermittent urge incontinence which has been chronic. This morning there was concern that the patient was not emptying his bladder completely. A bladder scan was done which apparently showed 700 mL in the bladder however when a catheter was inserted only 200 mL of clear urine drained. BUN/creatinine today were 41/1.92. Renal ultrasound today shows a left renal cyst which appears benign. There is no evidence of hydronephrosis. I was asked to see the patient for further evaluation. The patient denies any previous history of urinary retention. He says he usually voids every 2-3 hours during the day and once at night. He complained of intermittent urgency and urge incontinence which was worsened due to his impaired ambulation which has required the use of a walker. He denied any previous history of urinary tract infection or gross hematuria. His bowels have been loose since he has been admitted. Review of Systems - Constitutional Reports fatigue, Reports lethargy - Cardiovascular Reports dyspnea on exertion, Reports shortness of breath - Gastrointestinal Denies abdominal pain, Denies constipation - Genitourinary Reports as per HPI - Neurological Reports balance difficulties, Reports weakness - Psychiatric Reports anxiety Past Medical History Past Medical History: Coronary Artery Disease (CAD), Cancer, Diabetes Mellitus, GERD/Reflux, Hyperlipidemia, Hypertension, Myocardial Infarction ([place]), Pneumonia , Prostate Disorder, Sleep Apnea/CPAP/BIPAP, Thyroid Disorder Additional Past Medical History / Comment(s): no CPAP used, hiatal hernia, hx thyroid cancer, macular degeneration danielle eyes Last Myocardial Infarction Date:: 1999 History of Any Multi-Drug Resistant Organisms: None Reported Past Surgical History: Heart Catheterization With Stent, Joint Replacement Additional Past Surgical History / Comment(s): left knee replacement, danielle cataracts, thyroidectomy Past Anesthesia/Blood Transfusion Reactions: No Reported Reaction Additional Past Anesthesia/Blood Transfusion Reaction / Comm: clausterphobia - "uses open mri" Date of Last Stent Placement:: 1999 Past Psychological History: Anxiety, Depression, Schizophrenia Smoking Status: Former smoker - Past Family History Father Family Medical History: Cancer Additional Family Medical History / Comment(s): Father had lung cancer and colorectal cancer. He smoked as a younger man. Mother Family Medical History: Cancer Additional Family Medical History / Comment(s): Mother had lung cancer. She was a lifelong smoker Medications and Allergies Home Medications Medication Instructions Recorded Confirmed Type Atenolol [Tenormin] 25 mg PO DAILY 09/29/14 11/26/18 History Citalopram Hydrobromide 40 mg PO DAILY 09/29/14 11/26/18 History [Citalopram HBr] Levothyroxine Sodium [Synthroid] 88 mcg PO DAILY 09/29/14 11/26/18 History Multivitamins, Thera [Multivitamin 1 each PO DAILY 09/29/14 11/26/18 History (formulary)] Omeprazole [PriLOSEC] 20 mg PO BID 09/29/14 11/26/18 History Restaisi(Dose Unknown) 1 drop BOTH EYES BID 09/29/14 11/26/18 History Simvastatin [Zocor] 40 mg PO HS 09/29/14 11/26/18 History Cyanocobalamin [Vitamin B-12] 500 mcg PO DAILY 11/07/18 11/26/18 History Tamsulosin HCl [Flomax] 0.4 mg PO HS 11/07/18 11/26/18 History Vit C/E/Zn/Coppr/Lutein/Zeaxan 1 cap PO BID 11/07/18 11/26/18 History [Preservision Areds 2 Softgel] Apixaban [Eliquis] 2.5 mg PO BID tablet 11/18/18 11/26/18 Rx Aspirin 81 mg PO DAILY chew 11/18/18 11/26/18 Rx Docusate [Colace] 100 mg PO BID cap 11/18/18 11/26/18 Rx Insulin Aspart [NovoLOG 5 unit SQ AC-TID vial 11/18/18 11/26/18 Rx (formulary)] LORazepam [Ativan] 1 mg PO TID PRN #9 tab 11/18/18 11/26/18 Rx Lactulose [Cephulac] 15 gm PO TID PRN ml 11/18/18 11/26/18 Rx risperiDONE [RisperDAL] 1 mg PO BID 3 Days #6 tab 11/18/18 11/26/18 Rx Acetaminophen [Tylenol] 650 mg PO Q4H 11/26/18 11/26/18 History Bismuth Subsalicylate [Kaopectate] 262 mg PO Q4H 11/26/18 11/26/18 History Fluticasone Nasal Alvin [Flonase 2 spray EA NOSTRIL DAILY 11/26/18 11/26/18 History Nasal Alvin] Insulin Aspart [NovoLOG] See Protocol SQ DIRECTED 11/26/18 11/26/18 History Insulin Detemir [Levemir] 20 unit SQ HS 11/26/18 11/26/18 History Loratadine [Claritin] 10 mg PO DAILY 11/26/18 11/26/18 History Mag Hydrox/Al Hydrox/Simeth 30 ml PO Q4H 11/26/18 11/26/18 History [Maalox] Melatonin 3 mg PO HS 11/26/18 11/26/18 History buPROPion [Wellbutrin] 150 mg PO DAILY 11/26/18 11/26/18 History Amoxicillin/Potassium Clav 1 tab PO Q12HR #10 tab 11/28/18 Rx [Augmentin 875-125 Tablet] INSULIN LISPRO (HumaLOG) [humaLOG] 0 unit SQ ACHS #1 vial 11/28/18 Rx Ipratropium/Albuterol Sulfate 2 puff INHALATION QID #1 inhaler 11/28/18 Rx [Combivent Respimat Inhaler] Allergies Allergy/AdvReac Type Severity Reaction Status Date / Time No Known Allergies Allergy Verified 11/26/18 22:06 Surgical - Exam Vital Signs Pulse Ox 86 L 11/26/18 21:54 - General well developed, well nourished, no distress, obese - ENT no hearing loss - Neck no masses, no lymphadectomy - Respiratory normal respiratory effort - Abdomen Abdomen: soft, non tender, no organomegaly - Genitourinary normal penis with no external lesions, testicles non-tender, other (Lamas catheter is in place and is draining clear urine) - Rectum Rectum: normal sphincter tone, no hemorrhoids, other (Prostate is 1-2+ enlarged and benign to palpation) Results - Labs 12/04/18 06:56 12/04/18 06:56 Abnormal Lab Results - Last 24 Hours (Table) 12/03/18 12/03/18 12/04/18 Range/Units 16:14 20:58 05:55 RBC (4.30-5.90) m/uL Hgb (13.0-17.5) gm/dL Hct (39.0-53.0) % MCV (80.0-100.0) fL MCHC (31.0-37.0) g/dL Lymphocytes # (1.0-4.8) k/uL Chloride (98-107) mmol/L BUN (9-20) mg/dL Creatinine (0.66-1.25) mg/dL Glucose (74-99) mg/dL POC Glucose (mg/dL) 222 H 234 H 63 L (75-99) mg/dL Total Protein (6.3-8.2) g/dL Albumin (3.5-5.0) g/dL 12/04/18 12/04/18 12/04/18 Range/Units 06:40 06:56 06:56 RBC 2.92 L (4.30-5.90) m/uL Hgb 9.4 L (13.0-17.5) gm/dL Hct 31.1 L (39.0-53.0) % MCV 106.4 H (80.0-100.0) fL MCHC 30.1 L (31.0-37.0) g/dL Lymphocytes # 0.8 L (1.0-4.8) k/uL Chloride 114 H (98-107) mmol/L BUN 41 H (9-20) mg/dL Creatinine 1.92 H (0.66-1.25) mg/dL Glucose 101 H (74-99) mg/dL POC Glucose (mg/dL) 109 H (75-99) mg/dL Total Protein 5.0 L (6.3-8.2) g/dL Albumin 2.7 L (3.5-5.0) g/dL 12/04/18 Range/Units 12:15 RBC (4.30-5.90) m/uL Hgb (13.0-17.5) gm/dL Hct (39.0-53.0) % MCV (80.0-100.0) fL MCHC (31.0-37.0) g/dL Lymphocytes # (1.0-4.8) k/uL Chloride (98-107) mmol/L BUN (9-20) mg/dL Creatinine (0.66-1.25) mg/dL Glucose (74-99) mg/dL POC Glucose (mg/dL) 199 H (75-99) mg/dL Total Protein (6.3-8.2) g/dL Albumin (3.5-5.0) g/dL Diabetes panel 12/04/18 Range/Units 06:56 Sodium 143 (137-145) mmol/L Potassium 4.9 (3.5-5.1) mmol/L Chloride 114 H (98-107) mmol/L Carbon Dioxide 25 (22-30) mmol/L BUN 41 H (9-20) mg/dL Creatinine 1.92 H (0.66-1.25) mg/dL Glucose 101 H (74-99) mg/dL Calcium 8.7 (8.4-10.2) mg/dL AST 27 (17-59) U/L ALT 50 (21-72) U/L Alkaline Phosphatase 73 (38-126) U/L Total Protein 5.0 L (6.3-8.2) g/dL Albumin 2.7 L (3.5-5.0) g/dL Calcium panel 12/04/18 Range/Units 06:56 Calcium 8.7 (8.4-10.2) mg/dL Albumin 2.7 L (3.5-5.0) g/dL Pituitary panel 12/04/18 Range/Units 06:56 Sodium 143 (137-145) mmol/L Potassium 4.9 (3.5-5.1) mmol/L Chloride 114 H (98-107) mmol/L Carbon Dioxide 25 (22-30) mmol/L BUN 41 H (9-20) mg/dL Creatinine 1.92 H (0.66-1.25) mg/dL Glucose 101 H (74-99) mg/dL Calcium 8.7 (8.4-10.2) mg/dL Adrenal panel 12/04/18 Range/Units 06:56 Sodium 143 (137-145) mmol/L Potassium 4.9 (3.5-5.1) mmol/L Chloride 114 H (98-107) mmol/L Carbon Dioxide 25 (22-30) mmol/L BUN 41 H (9-20) mg/dL Creatinine 1.92 H (0.66-1.25) mg/dL Glucose 101 H (74-99) mg/dL Calcium 8.7 (8.4-10.2) mg/dL Total Bilirubin 0.4 (0.2-1.3) mg/dL AST 27 (17-59) U/L ALT 50 (21-72) U/L Alkaline Phosphatase 73 (38-126) U/L Total Protein 5.0 L (6.3-8.2) g/dL Albumin 2.7 L (3.5-5.0) g/dL Assessment and Plan (1) Incomplete bladder emptying Narrative/Plan: The patient has incomplete bladder emptying which is most likely chronic. He has intermittent urge incontinence which is partly related to his impaired ambulation. His postvoid residual this morning was 200 mL which is unlikely to affect his renal function. I would recommend removing the Lamas catheter and rechecking his postvoid residuals over the next 24 hours. If they remain less than 200-250 mL I believe the patient would be better managed without an indwelling catheter. I'm reluctant to increase his tamsulosin beyond the current dose due to his history of impaired balance with falling. He may benefit from finasteride 5 mg daily however this medication will take months to cause a significant reduction in the prostate volume. If the patient is discharged without a catheter I would like to see him back in the office in a few weeks to recheck a postvoid residual. Current Visit: Yes Status: Acute Code(s): R33.9 - RETENTION OF URINE, UNSPECIFIED SNOMED Code(s): 096469380
[2018-12-04] MEDS: FINASTERIDE 5 MG TAB PO SCH (16:15)
[2018-12-04 17:03] LABS: Glucose,Whole Blood 244 mg/dL (75-99)
--- NOTE | 2018-12-04 17:30 | P.PN ---
Subjective Progress Note Date: 12/04/18 Principal diagnosis: Acute on chronic hypoxic respiratory failure secondary to suspected healthcare acquired pneumonia, acute exacerbation of chronic diastolic congestive heart failure. She is seen today 12/04/2017 in follow-up on the selective care unit. He remains awake and alert in no acute distress. He denies any worsening shortness of breath, cough or congestion. Maintaining good O2 saturations in the 90s on 4 L/m per nasal cannula. He's been afebrile. Hemodynamically stable. He was having some issues with urinary retention and abdominal discomfort. A Lamas catheter was placed and he did feel relief. 250 mL of urine was returned. Ultrasound of the kidneys and bladder revealed a simple left renal cyst no other significant abnormalities. No hydronephrosis. White count 8.7. Hemoglobin 9.4. Creatinine 1.92. Objective - Vital Signs Vital signs: Vital Signs Temp 97.6 F 12/04/18 16:00 Pulse 77 12/04/18 16:00 Resp 18 12/04/18 16:00 BP 176/72 12/04/18 16:00 Pulse Ox 93 L 12/04/18 16:00 Intake & Output 12/03/18 12/04/18 12/04/18 18:59 06:59 18:59 Intake Total 1042 480 Output Total 950 250 Balance 1042 -950 230 Weight 98 kg 99 kg Intake: Intake, IV Titration 100 Amount Piperacillin-Tazobactam 3 100 .375 gm In Sodium Chloride 0.9% 100 ml @ 25 mls/hr IVPB Q8H [facility] Rx#: [id number] Oral 942 480 Output: Urine 600 250 Straight 250 Post Void Residual 350 Other: Voiding Method Urinal # Voids 1 1 # Bowel Movements 4 1 - Exam GENERAL EXAM: Alert, 83-year-old currently on 4 L per nasal cannula comfortable in no apparent distress. HEAD: Normocephalic/atraumatic. EYES: Normal reaction of pupils, equal size. Conjunctiva pink, sclera white. NOSE: Clear with pink turbinates. THROAT: No erythema or exudates. NECK: No masses, no JVD, no thyroid enlargement, no adenopathy. CHEST: No chest wall deformity. Symmetrical expansion. LUNGS: Equal air entry with no crackles, wheeze, rhonchi or dullness. CVS: Regular rate and rhythm, normal S1 and S2, no gallops, no murmurs, no rubs ABDOMEN: Soft, slightly distended. Status post Lamas catheter insertion. EXTREMITIES: No clubbing, no edema, no cyanosis, 2+ pulses and upper and lower extremities. MUSCULOSKELETAL: Muscle strength and tone normal. SPINE: No scoliosis or deformity SKIN: No rashes CENTRAL NERVOUS SYSTEM: Alert and oriented -3. No focal deficits, tone is normal in all 4 extremities. PSYCHIATRIC: Alert and oriented -3. Appropriate affect. Intact judgment and insight. - Labs CBC & Chem 7: 12/04/18 06:56 12/04/18 06:56 Labs: Abnormal Lab Results - Last 24 Hours (Table) 12/03/18 12/04/18 12/04/18 Range/Units 20:58 05:55 06:40 RBC (4.30-5.90) m/uL Hgb (13.0-17.5) gm/dL Hct (39.0-53.0) % MCV (80.0-100.0) fL MCHC (31.0-37.0) g/dL Lymphocytes # (1.0-4.8) k/uL Chloride (98-107) mmol/L BUN (9-20) mg/dL Creatinine (0.66-1.25) mg/dL Glucose (74-99) mg/dL POC Glucose (mg/dL) 234 H 63 L 109 H (75-99) mg/dL Total Protein (6.3-8.2) g/dL Albumin (3.5-5.0) g/dL 12/04/18 12/04/18 12/04/18 Range/Units 06:56 06:56 12:15 RBC 2.92 L (4.30-5.90) m/uL Hgb 9.4 L (13.0-17.5) gm/dL Hct 31.1 L (39.0-53.0) % MCV 106.4 H (80.0-100.0) fL MCHC 30.1 L (31.0-37.0) g/dL Lymphocytes # 0.8 L (1.0-4.8) k/uL Chloride 114 H (98-107) mmol/L BUN 41 H (9-20) mg/dL Creatinine 1.92 H (0.66-1.25) mg/dL Glucose 101 H (74-99) mg/dL POC Glucose (mg/dL) 199 H (75-99) mg/dL Total Protein 5.0 L (6.3-8.2) g/dL Albumin 2.7 L (3.5-5.0) g/dL 12/04/18 Range/Units 16:59 RBC (4.30-5.90) m/uL Hgb (13.0-17.5) gm/dL Hct (39.0-53.0) % MCV (80.0-100.0) fL MCHC (31.0-37.0) g/dL Lymphocytes # (1.0-4.8) k/uL Chloride (98-107) mmol/L BUN (9-20) mg/dL Creatinine (0.66-1.25) mg/dL Glucose (74-99) mg/dL POC Glucose (mg/dL) 244 H (75-99) mg/dL Total Protein (6.3-8.2) g/dL Albumin (3.5-5.0) g/dL Assessment and Plan Assessment: Pression: #1 Acute on chronic hypoxic respiratory failure secondary to suspected health acquired healthcare associated pneumonia. #2 Acute exacerbation of chronic diastolic congestive heart failure. 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 #4 History of atrial fibrillation currently in sinus rhythm. Anticoagulated with Eliquis. #5 Chronic kidney disease stage 3/4. Today with urinary retention requiring Lamas catheter insertion. #6 Hyperkalemia. #7 Diabetes mellitus, type II. #8 History of thyroid cancer, hypothyroidism. #9 Hypertension. #10 Anxiety/depression. #11 Macular degeneration. #12 Coronary artery disease with previous stent placement. #13 History of chronic tobacco dependence. #14 Ischemic cardiomyopathy. Plan: The patient was seen and evaluated by Dr. Zhao. He is currently stable from the pulmonary standpoint. We'll continue with his current treatment plan for now. Increase his activity as tolerated. Titrate down the FiO2 as tolerated. We'll continue to follow and make further recommendations based on his clinical status. I, the cosigning physician, performed a history & physical examination of the patient. Lungs sounds bilateral scattered rhonchi, crackles in the posterior bases. Maintaining good O2 saturations in the 90s on 5 L/m per nasal cannula.. I discussed the assessment and plan of care with my nurse practitioner, Lilian Ibarra. I attest to the above note as dictated by her.
[2018-12-04 21:38] LABS: Glucose,Whole Blood 269 mg/dL (75-99)
[2018-12-04] MEDS: TAMSULOSIN 0.4 MG CAP.ER.24H PO SCH (21:53)
[2018-12-04] MEDS: ATORVASTATIN 20 MG TAB PO SCH (21:53)
[2018-12-04] MEDS: INSULIN DETEMIR 100 UNIT/ML 10 ML VIAL SQ SCH (21:54)
[2018-12-04] MEDS: MELATONIN 3 MG TABLET PO PRN (21:54)
[2018-12-05] MEDS: ACETAMINOPHEN TAB 325 MG TAB PO SCH ×6 (05:01→21:09)
[2018-12-05 06:35] LABS: Glucose,Whole Blood 85 mg/dL (75-99)
[2018-12-05 06:36] LABS: Basophils % (A) 0 %; Eosinophils # (A) 0.1 k/uL (0-0.7); Eosinophils % (A) 1 %; HCT 31.3 % (39.0-53.0); HGB 9.3 gm/dL (13.0-17.5); Hypochromasia Marked; Lymphocytes # (A) 0.8 k/uL (1.0-4.8); Lymphocytes % (A) 10 %; MCH 31.5 pg (25.0-35.0); MCHC 29.5 g/dL (31.0-37.0); MCV 106.7 fL (80.0-100.0); Macrocytosis Moderate; Mean Platelet Volume 6.9; Monocytes # (A) 0.5 k/uL (0-1.0); Monocytes % (A) 7 %; Neutrophils # (A) 6.5 k/uL (1.3-7.7); Neutrophils % (A) 80 %; Platelet Count 248 k/uL (150-450); RBC 2.94 m/uL (4.30-5.90); RDW 14.5 % (11.5-15.5); WBC 8.1 k/uL (3.8-10.6)
[2018-12-05] MEDS: PANTOPRAZOLE 40 MG TABLET PO SCH (06:40)
[2018-12-05] MEDS: LEVOTHYROXINE 88 MCG TAB PO SCH (06:40)
[2018-12-05] MEDS: INSULIN ASPART 100 UNIT/ML 1 ML 10 ML VIAL SQ SCH ×4 (06:41→21:08)
[2018-12-05 06:48] LABS: Albumin 2.8 g/dL (3.5-5.0); Calcium 8.9 mg/dL (8.4-10.2); Magnesium 2.6 mg/dL (1.6-2.3); Total Bilirubin 0.3 mg/dL (0.2-1.3); Total Protein 5.1 g/dL (6.3-8.2)
[2018-12-05] MEDS: LORazepam 1 MG TAB PO PRN ×2 (08:06→15:30)
[2018-12-05] MEDS: IPRATROPIUM-ALBUTEROL 3 ML NEB INHALATION SCH ×4 (09:43→20:34)
--- NOTE | 2018-12-05 10:18 | P.PN ---
Subjective Patient is seen in follow-up for acute kidney injury on chronic any disease. 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 Creatinine was near 1.4 in October 2018. It has been staying in the range of 1.7-2 recently. Patient admits to good urine output. No vomiting or diarrhea. No significant cough. Hemodynamically stable. He's been requiring intermittent straight catheterizations. Currently does not have a Lamas catheter. Vital signs are stable. General: The patient appeared well nourished and normally developed. HEENT: Head exam is unremarkable. Neck is without jugular venous distension. LUNGS: Lungs are clear to auscultation and percussion. Breath sounds decreased. HEART: Rate and Rhythm are regular. First and second heart sounds normal. No murmurs, rubs or gallops. ABDOMEN: Abdominal exam reveals normal bowel sounds. Non-tender and non- distended. No evidence of peritonitis. EXTREMITITES: No clubbing, cyanosis, or edema. Objective - Vital Signs Vital signs: Vital Signs Temp 97.7 F 12/05/18 03:55 Pulse 69 12/05/18 03:55 Resp 18 12/05/18 03:55 BP 166/85 12/05/18 03:55 Pulse Ox 92 L 12/05/18 03:55 Intake & Output 12/04/18 12/05/18 12/05/18 18:59 06:59 18:59 Intake Total 720 240 Output Total 650 750 Balance 70 -750 240 Weight 99.5 kg Intake: Oral 720 240 Output: Urine 650 550 Straight 650 Post Void Residual 200 Other: Voiding Method Urinal # Voids 1 1 # Bowel Movements 1 - Labs CBC & Chem 7: 12/05/18 06:18 12/05/18 06:18 Labs: Abnormal Lab Results - Last 24 Hours (Table) 12/04/18 12/04/18 12/04/18 Range/Units 12:15 16:59 21:36 RBC (4.30-5.90) m/uL Hgb (13.0-17.5) gm/dL Hct (39.0-53.0) % MCV (80.0-100.0) fL MCHC (31.0-37.0) g/dL Lymphocytes # (1.0-4.8) k/uL Chloride (98-107) mmol/L BUN (9-20) mg/dL Creatinine (0.66-1.25) mg/dL POC Glucose (mg/dL) 199 H 244 H 269 H (75-99) mg/dL Magnesium (1.6-2.3) mg/dL Total Protein (6.3-8.2) g/dL Albumin (3.5-5.0) g/dL 12/05/18 12/05/18 Range/Units 06:18 06:18 RBC 2.94 L (4.30-5.90) m/uL Hgb 9.3 L (13.0-17.5) gm/dL Hct 31.3 L (39.0-53.0) % MCV 106.7 H (80.0-100.0) fL MCHC 29.5 L (31.0-37.0) g/dL Lymphocytes # 0.8 L (1.0-4.8) k/uL Chloride 110 H (98-107) mmol/L BUN 47 H (9-20) mg/dL Creatinine 1.86 H (0.66-1.25) mg/dL POC Glucose (mg/dL) (75-99) mg/dL Magnesium 2.6 H (1.6-2.3) mg/dL Total Protein 5.1 L (6.3-8.2) g/dL Albumin 2.8 L (3.5-5.0) g/dL Assessment and Plan Plan: Assessment: 1. Chronic kidney disease stage IIIB/4 secondary to diabetic kidney disease with baseline creatinine now near 1.7-2. It was 1.4 in October 2018. 2. History of urinary retention. Currently does not have a Lamas catheter. He 's been requiring intermittent straight catheterizations. Urology following. 3. Pneumonia maintained on antibiotics. 4. BPH maintained on Flomax. 5. Diabetes mellitus. 6. Benign hypertension. Blood pressures on the higher side. Plan: Tenormin was increased today. Encourage oral intake. Avoid nephrotoxins. Maintain Flomax.
[2018-12-05] MEDS: CYANOCOBALAMIN 500 MCG TAB PO SCH (10:24)
[2018-12-05] MEDS: hydrALAZINE HCL 50 MG TAB PO SCH ×3 (10:24→21:09)
[2018-12-05] MEDS: ATENOLOL 50 MG TAB PO SCH (10:24)
[2018-12-05] MEDS: DICYCLOMINE 10 MG CAP PO SCH ×4 (10:25→21:09)
[2018-12-05] MEDS: buPROPion 75 MG TAB PO SCH (10:25)
[2018-12-05] MEDS: APIXABAN 2.5 MG TABLET PO SCH ×2 (10:25→21:09)
[2018-12-05] MEDS: ASPIRIN 81 MG PO SCH (10:25)
[2018-12-05] MEDS: FINASTERIDE 5 MG TAB PO SCH (10:25)
[2018-12-05] MEDS: predniSONE 20 MG TAB PO SCH (10:25)
[2018-12-05] MEDS: FLUTICASONE 50MCG/SPRAY NASAL 16GM EA NOSTRIL SCH (10:26)
[2018-12-05] MEDS: CITALOPRAM HYDROBROMIDE 20 MG TAB PO SCH (10:26)
[2018-12-05] MEDS: DOCUSATE 100 MG CAP PO SCH ×2 (10:26→21:10)
[2018-12-05] MEDS: LACTULOSE 20 GM/30 ML CUP PO SCH ×4 (10:27→21:19)
[2018-12-05] MEDS: risperiDONE 1 MG TAB PO SCH ×2 (10:27→21:10)
[2018-12-05] MEDS: ONDANSETRON 4 MG/2 ML VIAL IVP PRN ×2 (11:27→17:17)
[2018-12-05 12:08] LABS: Glucose,Whole Blood 138 mg/dL (75-99)
--- NOTE | 2018-12-05 12:39 | P.PN ---
Subjective Progress Note Date: 12/05/18 This is a very pleasant 83-year-old gentleman, he has a history of coronary artery disease with previous stent placement, diabetes mellitus, GERD, hyperlipidemia, hypertension, benign prostatic hypertrophy, obstructive sleep apnea without device, atrial fibrillation, carotid stenosis, hypothyroidism macular degeneration. He was admitted on 11/27/2018 with from an extended care facility with complaints of increasing shortness of breath, bilateral peripheral edema, anxiety and productive cough of white to yellow sputum. Chest x-ray revealed a left lower lobe pneumonia. A repeat chest x-ray was performed today which showed shifting airspace disease, worsening in the right midlung and right costophrenic angle, and improved in the left perihilar region and retrocardiac airspace, suggesting dependent pulmonary edema and/or atelectasis rather than pneumonia. Blood pressure 130/60 with a heart rate in the 60s, 95% on room air. White blood cell count 8.9, hemoglobin 9.5, platelet count 297. Sodium 141, potassium 4.8, BUN 43 and creatinine 1.8, patient today is resting comfortably in bed, denies any chest pain or shortness of breath. Blood sugar 40 this morning. 12/03/2018 Patient seen and examined this morning, sitting up in the chair at bedside, complaining of some mild abdominal discomfort. He did undergo a CT of the abdomen which revealed bilateral pleural effusions extensive colonic diverticulosis without any evidence of diverticulitis, gallstones. He does state overall his breathing is improved today. Diuretics continue to be on hold per nephrology. Blood pressure 138/80 with a heart rate of 106-120 this morning, 94% on 4 L of oxygen. 12/04/2018 Patient seen and examined this morning, no specific complaints today. Blood pressure 136/78, heart rate in the 90s, 95% on room air. White blood cell count 8.7, hemoglobin 9.4, platelet count 241. Sodium 143, potassium 4.9, BUN 41 and creatinine 1.9. 12/05/2018 Patient seen and examined this morning, blood pressure 166/90 with a heart rate in the low 100s. Ultrasound of the abdomen did not reveal any significant acute findings. We will increase his dose of atenolol today for more optimal blood pressure and heart rate control. BUN 47 today creatinine 1.8. Objective - Vital Signs Vital signs: Vital Signs Temp 97.7 F 12/05/18 03:55 Pulse 68 12/05/18 12:25 Resp 18 12/05/18 03:55 BP 166/85 12/05/18 03:55 Pulse Ox 92 L 12/05/18 03:55 Intake & Output 12/04/18 12/05/18 12/05/18 18:59 06:59 18:59 Intake Total 720 240 Output Total 650 750 Balance 70 -750 240 Weight 99.5 kg Intake: Oral 720 240 Output: Urine 650 550 Straight 650 Post Void Residual 200 Other: Voiding Method Urinal # Voids 1 1 # Bowel Movements 1 - Exam GENERAL EXAM: Alert, active, comfortable in no apparent distress. HEAD: Normocephalic. EYES: Normal reaction of pupils, equal size. Ocular degeneration. NOSE: Clear with pink turbinates. THROAT: No erythema or exudates. NECK: No masses, no JVD. CHEST: No chest wall deformity. LUNGS: Equal air entry with crackles in the posterior bases. CVS: S1 and S2 normal with no audible murmur, irregular rhythm. ABDOMEN: No hepatosplenomegaly, normal bowel sounds, no guarding or rigidity. SPINE: No scoliosis or deformity SKIN: No rashes CENTRAL NERVOUS SYSTEM: No focal deficits, tone is normal in all 4 extremities. EXTREMITIES: There is trace peripheral edema. No clubbing, no cyanosis. Peripheral pulses are intact. - Labs CBC & Chem 7: 12/05/18 06:18 12/05/18 06:18 Labs: Abnormal Lab Results - Last 24 Hours (Table) 12/04/18 12/04/18 12/05/18 Range/Units 16:59 21:36 06:18 RBC 2.94 L (4.30-5.90) m/uL Hgb 9.3 L (13.0-17.5) gm/dL Hct 31.3 L (39.0-53.0) % MCV 106.7 H (80.0-100.0) fL MCHC 29.5 L (31.0-37.0) g/dL Lymphocytes # 0.8 L (1.0-4.8) k/uL Chloride (98-107) mmol/L BUN (9-20) mg/dL Creatinine (0.66-1.25) mg/dL POC Glucose (mg/dL) 244 H 269 H (75-99) mg/dL Magnesium (1.6-2.3) mg/dL Total Protein (6.3-8.2) g/dL Albumin (3.5-5.0) g/dL 12/05/18 12/05/18 Range/Units 06:18 12:03 RBC (4.30-5.90) m/uL Hgb (13.0-17.5) gm/dL Hct (39.0-53.0) % MCV (80.0-100.0) fL MCHC (31.0-37.0) g/dL Lymphocytes # (1.0-4.8) k/uL Chloride 110 H (98-107) mmol/L BUN 47 H (9-20) mg/dL Creatinine 1.86 H (0.66-1.25) mg/dL POC Glucose (mg/dL) 138 H (75-99) mg/dL Magnesium 2.6 H (1.6-2.3) mg/dL Total Protein 5.1 L (6.3-8.2) g/dL Albumin 2.8 L (3.5-5.0) g/dL Assessment and Plan Plan: Assessment and plan #1 Acute on chronic hypoxic respiratory failure secondary to suspected health acquired healthcare associated pneumonia. #2 Acute exacerbation of chronic diastolic congestive heart failure. 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 #4 History of atrial fibrillation currently in sinus rhythm. Anticoagulated with Eliquis. #5 Chronic kidney disease stage 3/4. #6 Hyperkalemia. #7 Diabetes mellitus, type II. #8 History of thyroid cancer, hypothyroidism. #9 Hypertension. #10 Anxiety/depression. #11 Macular degeneration. #12 Coronary artery disease with previous stent placement. #13 History of chronic tobacco dependence. #14 Ischemic cardiomyopathy. Plan From cardiology's perspective, we will increase atenolol to 50 mg daily today. Continue the rest of his medications. DNP note has been reviewed, I agree with a documented findings and plan of care. Patient was seen and examined.
--- NOTE | 2018-12-05 12:53 | P.PN ---
Subjective Progress Note Date: 12/05/18 Interval history: this is a 83-year-old recently discharged to [facility] came back with symptoms shortness of breath. Patient appears to be mostly anxiety and patient when questioned clearly he is quite a bit anxious and he is quite a bit claustrophobic which was his main concern. Patient also has minimal cough with white to yellowish sputum production chest x-ray was read as left lower lobe pneumonia because of which patient was admitted for healthcare associated pneumonia patient was given Zosyn and levofloxacin. Patient doesn't have any fevers does have mild leukocytosis clinically doesn't appear to have pneumonia although Zosyn will be continued levofloxacin will be discontinued patient was believed to have heart failure as well although patient has some peripheral edema mild pitting patient doesn't have any other signs of CHF patient doesn't have any JVD no crackles on exam. I do not believe patient is in CHF exacerbation patient that creatinine is 1.9 baseline appears to be around 2.1 during his last hospitalization. Patient is probably more anxious rather than having pneumonia CHF ,cannot completely rule out pneumonia, therefore we'll continue antibiotics. IV diuretics discontinued with further diuretics as per nephrology. evaluated by psychiatry with inpatient mental health unit recommended,given his suicidal thoughts over the last week,daily hallucinations. On 11/30/2018 patient is now admitted to Dr. Pizano. On 11/29/2018 patient was discharged mental health unit but discharged on hold due to developing of hypoxic respiratory failure requiring BiPAP. Today patient remains confused. Per nursing staff patient was noncompliant with BiPAP. Creatinine improving to 1.70. BNP 7050. We'll consult cardiology services. Abdominal x-ray completed showing possibility for underlying ileus or enteritis , follow-up as indicated dissection is suspected clinically. Additional findings above. Dr. Nova has been consulted for GI services Chest x-ray completed showing interstitial edema situated by low lung volumes, right midlung atelectasis and small left pleural effusion with left basilar atelectasis. Suspicion for cardiogenic fluid overload however superimposed left perihilar pneumonia remains possible. Follow-up to resolution. Cardiology and pulmonary service is consulted Increased confusion. Psychiatry following Acute kidney injury. Nephrology following On 12/01/2018 patient is currently resting in bed. Patient at this time is complaining of some nausea. Dr. Nova is following for surgical services. Patient did report a large bowel movement yesterday. Cardiology services have been consulted. Nephrology services also following. Increased creatinine level. At this time patient denies chest pain or shortness breath. Patient denies nausea vomiting or diarrhea. Patient denies any urinary burning or frequency On 12/02/2018 patient is currently resting in bed. Per nursing staff patient is refusing to wear BiPAP. This time patient denies chest pain or shortness of breath. Patient denies nausea vomiting or diarrhea. Patient denies any urinary burning or frequency. Creatinine improving to 1.85. Patient was hypoglycemic this a.m. with a blood sugar 40. On 12/03/2017 patient is currently sitting up in chair. At this time patient is complaining of abdominal pain. CT of abdomen completed showing bilateral pleural effusions that could relate to congestive heart failure. Subcutaneous edema also consistent with congestive heart failure. Atheromatous aorta. Extensive colonic diverticulosis without diverticulitis. Gallstones. Dr. Nova for surgical services is following. Along with cardiology and pulmonary services. This time patient states improvement with shortness of breath. Patient denies chest pain. Patient denies any urinary burning or frequency On 12/04/2017 patient is currently resting in bed. Patient does state some improvement with abdominal pain. Patient was seen by surgical services. At this time patient states he is slight improvement with shortness of breath. Patient denies chest pain. Patient denies any urinary burning or frequency. On 12/05/2017 patient is currently resting in bed. Patient denies any abdominal pain at this time. Patient is having normal bowel movements. At this time patient denies shortness of breath or chest pain. Patient denies nausea vomiting or diarrhea. Patient denies any urinary burning or frequency. Patient was evaluated by urology services. Again I discussed with patient's nurse the patient needs to be in suicide precautions until cleared and documented by psychiatry. Nurse verbalized understanding. Psychiatry to assess patient for DC plan. And patient mental health unit versus [facility]. Objective - Vital Signs Vital signs: Vital Signs Temp 97.7 F 12/05/18 03:55 Pulse 68 12/05/18 12:25 Resp 18 12/05/18 03:55 BP 166/85 12/05/18 03:55 Pulse Ox 92 L 12/05/18 03:55 Intake & Output 12/04/18 12/05/18 12/05/18 18:59 06:59 18:59 Intake Total 720 240 Output Total 650 750 Balance 70 -750 240 Weight 99.5 kg Intake: Oral 720 240 Output: Urine 650 550 Straight 650 Post Void Residual 200 Other: Voiding Method Urinal # Voids 1 1 # Bowel Movements 1 - Exam Head normocephalic Neck supple Lungs diminished bilaterally Heart regular rate and rhythm S1-S2, no rub or gallop Abdomen is soft nontender nondistended positive bowel sounds no hepatosplenomegaly Extremities no edema - Labs CBC & Chem 7: 12/05/18 06:18 12/05/18 06:18 Labs: Abnormal Lab Results - Last 24 Hours (Table) 12/04/18 12/04/18 12/05/18 Range/Units 16:59 21:36 06:18 RBC 2.94 L (4.30-5.90) m/uL Hgb 9.3 L (13.0-17.5) gm/dL Hct 31.3 L (39.0-53.0) % MCV 106.7 H (80.0-100.0) fL MCHC 29.5 L (31.0-37.0) g/dL Lymphocytes # 0.8 L (1.0-4.8) k/uL Chloride (98-107) mmol/L BUN (9-20) mg/dL Creatinine (0.66-1.25) mg/dL POC Glucose (mg/dL) 244 H 269 H (75-99) mg/dL Magnesium (1.6-2.3) mg/dL Total Protein (6.3-8.2) g/dL Albumin (3.5-5.0) g/dL 12/05/18 12/05/18 Range/Units 06:18 12:03 RBC (4.30-5.90) m/uL Hgb (13.0-17.5) gm/dL Hct (39.0-53.0) % MCV (80.0-100.0) fL MCHC (31.0-37.0) g/dL Lymphocytes # (1.0-4.8) k/uL Chloride 110 H (98-107) mmol/L BUN 47 H (9-20) mg/dL Creatinine 1.86 H (0.66-1.25) mg/dL POC Glucose (mg/dL) 138 H (75-99) mg/dL Magnesium 2.6 H (1.6-2.3) mg/dL Total Protein 5.1 L (6.3-8.2) g/dL Albumin 2.8 L (3.5-5.0) g/dL Assessment and Plan Assessment: 1.Acute hypoxic respiratory failure multifactorial, possibly acute on chronic CHF-diastolic dysfunction, possibly healthcare associated pneumonia left lower lobe, anxiety. Chest x-ray completed showing interstitial edema accentuated by low lung volumes, right midlung atelectasis, and small left pleural effusion with left basilar atelectasis. Suspicion for cardiogenic fluid overload however superimposed left perihilar pneumonia remains possible. Follow-up to resolution. Dr. Marin for pulmonary care. Dr. Bella consulted for cardiology services. Patient currently maintained on Zosyn. Elevated d-dimer. VQ scan completed showing stable posterior perfusion defect right lower lobe, elevated right hemidiaphragm. Cardiology following. Lasix currently on hold due to prerenal insufficiency. Patient remains on prednisone 40 pulmonary services are following 2. major depressive disorder. Patient being followed by psychiatry 3. Recent stroke with some mild residual weakness in the right hand. 4. Paroximal Atrial fibrillation,currently sinus rhythm. maintained on eliquis 5. acute on Chronic kidney disease stage 4. Creatinine increasing to 2.03. Nephrology services have been reconsulted. Creatinine improving to 1.86 6.Type 2 diabetes mellitus 7. History of thyroid cancer,hypothyroid 8. Essential hypertension. Neurology services have increased atenolol for adequate blood pressure control 9. gastric esophageal reflux disease 10. anxiety and depression. Evaluated by psychiatry, diagnosed with major depressive disorder with psychotic features. Patient to be reevaluated by psych for discharge planning 11. Abdominal pain with Possible ileus. Abdominal x-ray completed showing possibly for Ileus or enteris. Follow-up as indicated if obstruction is suspected clinically. Per surgical solution services ileus appears to be resolving with bowel function evident. CT of abdomen and pelvis completed without contrast. Type showing bilateral pleural effusions that could relate to congestive heart failure. Subcutaneous edema also consistent with congestive heart failure. Athermatous Aorta. Extensive, chronic diverticulosis without diverticulitis. Gallstones. Per surgical services CT of abdomen and pelvis did not show any significant acute findings with bowel. Per surgical services of systemic could be influenced by high level of anxiety. Bentyl for abdominal discomfort has been added 12. Hypoglycemia. Blood sugar 40. Will discontinue aspart 5 units with meals. Continue sliding scale insulin and long-acting insulin coverage. Long- acting insulin has been decreased to 15 units subcu nightly. At sugars have improved 13. Pressure with previous suicidal ideation. Patient was previously to be discharged mental health unit. Patient's shortness of breath prevented discharge. On 12/04/2018Spoke to nurse Kishore. Patient to be placed back in suicide precautions due to previous suicidal ideation and unclear mentation right now. Patient to be reevaluated by psychiatry for discharge planning and previous suicidal ideation. At this time patient denies any suicidal or homicidal thoughts. Again on 12/05/2018 spoke with patient's nurse and expressed that patient needs to be in suicide precautions until cleared and documented by psychiatry. 14. Urinary retention. Ultrasound of kidneys renal and bladder completed showing left renal cyst appears simple. Per urology Proscar has been added. Patient will continue to be assessed with post void residuals. DVT prophylaxis eliquis, GI prophylaxis Protonix. Discharge planning to return to [facility] vs. mental health unit admission Discussed case with high school social studies tutor and patient's nurse. Patient to be reevaluated by psychiatry for discharge planning and current mental health assessment. I performed an examination of the patient and discussed their management with the Nurse Practitioner. I have reviewed the Nurse Practitioner's notes and agree with the documented findings and plan of care
--- NOTE | 2018-12-05 13:45 | P.CN ---
Psychiatric Consult - . Consult date: 12/05/18 Consult:: 11/27/18 15:26 anxiety Assessment and Plan Assessment: This patient is an 83-year-old man transferred here from group home to be evaluated for cough and shortness of breath. Patient states that this is been going on for 2-3 days. It was reported to me that the patient had received breathing treatment, solu-medrol, as well as Lasix, with not much change in his breathing. He was on nasal cannula oxygen there as well. It was reported that he had low pulse oximetry readings, and therefore was transferred for further evaluation here. The patient states that the shortness of breath and coughing has been getting worse over the past 2-3 days. He has had a little bit of white to yellow sputum. He denies chest pain. He denies change in urination or bowel movements. No leg pain or swelling. She is not aware of fever or chills. MD Complaint: shortness of breath, cough - Related Data Home Medications Medication Instructions Recorded Confirmed Atenolol [Tenormin] 25 mg PO DAILY 09/29/14 11/07/18 Citalopram Hydrobromide [CeleXA] 20 mg PO AC-SUPPER 09/29/14 11/07/18 Citalopram Hydrobromide 40 mg PO DAILY 09/29/14 11/07/18 [Citalopram HBr] Levothyroxine Sodium [Synthroid] 88 mcg PO DAILY 09/29/14 11/07/18 Multivitamins, Thera [Multivitamin 1 each PO DAILY 09/29/14 11/07/18 (formulary)] Omeprazole [PriLOSEC] 20 mg PO BID 09/29/14 11/07/18 Restaisi(Dose Unknown) 1 drop BOTH EYES BID 09/29/14 11/07/18 Simvastatin [Zocor] 40 mg PO HS 09/29/14 11/07/18 Tamsulosin HCl [Flomax] 0.4 mg PO DAILY 09/29/14 11/07/18 Cyanocobalamin [Vitamin B-12] 500 mcg PO DAILY 11/07/18 11/07/18 Diphenox-Atrop 2.5-0.025 mg 1 tab PO Q4-6H PRN 11/07/18 11/07/18 [Lomotil] Loratadine [Claritin] 10 mg PO DAILY 11/07/18 11/07/18 Tamsulosin HCl [Flomax] 0.4 mg PO HS 11/07/18 11/07/18 Vit C/E/Zn/Coppr/Lutein/Zeaxan 1 cap PO BID 11/07/18 11/07/18 [Preservision Areds 2 Softgel] Previous Rx's Medication Instructions Recorded Amoxicillin 1,000 mg PO Q8HR 7 Days #42 cap 11/18/18 Apixaban [Eliquis] 2.5 mg PO BID tablet 11/18/18 Aspirin 81 mg PO DAILY chew 11/18/18 Docusate [Colace] 100 mg PO BID cap 11/18/18 Insulin Aspart [NovoLOG 0 unit SQ ACHS vial 11/18/18 (formulary)] Insulin Aspart [NovoLOG 5 unit SQ AC-TID vial 11/18/18 (formulary)] Insulin Detemir [Levemir] 20 unit SQ HS syr 11/18/18 LORazepam [Ativan] 1 mg PO TID PRN #9 tab 11/18/18 Lactulose [Cephulac] 15 gm PO TID PRN ml 11/18/18 Temazepam [Restoril] 15 mg PO HS 3 Days #3 cap 11/18/18 amLODIPine [Norvasc] 10 mg PO DAILY tab 11/18/18 hydrALAZINE HCL [Apresoline] 100 mg PO TID tab 11/18/18 risperiDONE [RisperDAL] 1 mg PO BID 3 Days #6 tab 11/18/18 Allergies Allergy/AdvReac Type Severity Reaction Status Date / Time No Known Allergies Allergy Verified 11/26/18 22:06 Past Medical History Past Medical History: Coronary Artery Disease (CAD), Cancer, Diabetes Mellitus, GERD/Reflux, Hyperlipidemia, Hypertension, Myocardial Infarction ([place]), Pneumonia , Prostate Disorder, Sleep Apnea/CPAP/BIPAP, Thyroid Disorder Additional Past Medical History / Comment(s): no CPAP used, hiatal hernia, hx thyroid cancer, macular degeneration danielle eyes Last Myocardial Infarction Date:: 1999 History of Any Multi-Drug Resistant Organisms: None Reported Past Surgical History: Heart Catheterization With Stent, Joint Replacement Additional Past Surgical History / Comment(s): left knee replacement, danielle cataracts, thyroidectomy Past Anesthesia/Blood Transfusion Reactions: No Reported Reaction Additional Past Anesthesia/Blood Transfusion Reaction / Comment(s): clausterphobia -"uses open mri" Date of Last Stent Placement:: 1999 Past Psychological History: Anxiety, Depression, Schizophrenia Smoking Status: Former smoker - Past Family History Father Family Medical History: Cancer Mother Family Medical History: Cancer Mental Status Examination - General Appearance: [ casual, appears stated age Speech/Language: [slow, soft] Attitude/Behavior: [cooperative Mood: [ depressed 2 out of 10, anxious 2 out of 10, fearful, hopelessness] Affect: [Reactive] Orientation: [time, person, place situation] Thought Content: [Within normal Risk Factors: [Denies suicidal (ideations, plan), not and/or Homicidal ( ideations, plan), other] Perception: [ Denies hallucinations Thought Processes: [goal-oriented Concentration/Attention Span: [wnl] [Per observation and interview with the patient] Recent Memory: [wnl] [0, 1, 2 or 3 out of 3 in 3 minutes] Remote Memory: [wnl [past events, as related history] Intelligence: [ average] [based on history, based on vocabulary, syntax, grammar , and content] Judgement: [ Good] [per patient's behavior/history of present illness] Insight: [ Good] [understanding severity of illness/history of present illness Psychiatric impression: Major depressive disorder without psychotic features Psychiatric recommendations: He is currently not suicidal nor homicidal nor does he suffer from any auditory or visual hallucinations. When medically stable may move onto physical rehab unit for further treatment. Thank you for the consult Emre Espana D.O. PhD ] (1) Major depressive disorder with psychotic features Current Visit: Yes Status: Acute Code(s): F32.3 - MAJOR DEPRESSV DISORD, SINGLE EPSD, SEVERE W PSYCH FEATURES SNOMED Code(s): 70854639 Time with Patient: Less than 30
[2018-12-05 16:36] LABS: Iron Saturation 25.89 (15.00-50.00)
[2018-12-05 16:36] LABS: Glucose,Whole Blood 295 mg/dL (75-99)
--- NOTE | 2018-12-05 17:12 | P.PN ---
Subjective Progress Note Date: 12/05/18 Principal diagnosis: Acute on chronic hypoxic respiratory failure secondary to suspected healthcare acquired pneumonia, acute exacerbation of chronic diastolic congestive heart failure On today's evaluation of 12/02/2018, seeing this patient for a follow-up. The patient is known to have coronary artery disease with previous coronary stent placement. He is known to have diabetes mellitus, hypertension, hyperlipidemia , chronic atrial fibrillation, obstructive sleep apnea for which she is not utilizing any form of CPAP therapy in addition to current artery stenosis and macular degeneration. The patient presented to hospital because of worsening shortness of breath. He was quite hypoxic and initially was on 5 L of oxygen by nasal cannula saturation was in the low 90s. We are in the process of weaning the patient's FiO2 down. Currently is on 4 L of oxygen by nasal cannula. Pulse ox 94%. Less short of breath. He is on accommodation of antibiotics and bronchodilators and steroids. The patient is currently on IV Zosyn. The chest x-ray from today shows small lung volumes. There is some mild four-vessel congestion could be related to underlying diastolic heart failure. Right lung pneumonia cannot be completely excluded. He continues to have some residual weakness on the right side related to a previous CVA. His cardiac rhythm is sinus and he is still on antibiotic ventilation with Eliquis. He remains table in regards to her renal function. Creatinine is at 1.28. No significant cough or sputum production. No other complaints otherwise for now. He did have a bout of hypoglycemia earlier this morning that was treated. He is currently asymptomatic. On 12/01/2018 patient seen in follow-up on selective care unit, currently on 4 L per nasal cannula, pulse ox is 95%, afebrile, hemodynamically stable, reading easier, no pulmonary complaints, no cough no chest congestion, his biggest complaint today is diarrhea, and abdominal distention. He had one episode of diarrhea this morning, CT of abdomen and pelvis was obtained yesterday, and showed no free fluid in the pelvis, no sign of appendicitis, no mesenteric edema or adenopathy, small multiple calcified gallstones, bile ducts were not dilated, liver shows no focal defects, spleen was within normal size, no pancreatic mass, no adrenal mass, kidneys were within normal limits. No sign of bowel obstruction. Lung sounds are clear, patient is working on his incentive spirometer, although his effort is poor, is only achieving to 50 and occasionally 500 on it today. His chest x-ray showed persistent mild cardiomegaly with improving central vascular congestion and focal right hilar infiltrate, persistent small to tiny bilateral pleural effusions. Patient is improving, no fever or chills. On 12/05/2018 patient seen in follow-up on selective care unit, he is awake and alert, in no acute distress, denies any dyspnea, means on 4 L per nasal cannula. He is complaining of some abdominal discomfort, mild nausea. Patient was having some liquid stools the day before yesterday, apparently today his stools are formed, lactulose was ordered and patient did refuse it. Flat plate of the abdomen done on 12/04/2018 showed no hydronephrosis, and multiple cystic- appearing lesions on the left kidney. Abdomen is distended, but nontender. Patient takes shallow breaths, no rhonchi no wheezing, lung sounds are positive for some bibasilar crackles, diminished breath sounds bilaterally. The pulmonary perspective patient is stable, Pulse ox is 90%, he is afebrile, she encouraging deep breathing and coughing, his been treated with antibiotics for suspected healthcare acquired pneumonia, last chest x-ray done on 12/03/2018 showed improving central vascular congestion and focal right hilar infiltrate, no fever no chills, no cough or congestion, patient completed a course of IV antibiotics. Objective - Vital Signs Vital signs: Vital Signs Temp 98.2 F 12/05/18 07:30 Pulse 68 12/05/18 12:25 Resp 20 12/05/18 07:30 BP 157/70 12/05/18 07:30 Pulse Ox 90 L 12/05/18 07:30 Intake & Output 12/04/18 12/05/18 12/05/18 18:59 06:59 18:59 Intake Total 720 712 Output Total 650 750 Balance 70 -750 712 Weight 99.5 kg Intake: Oral 720 712 Output: Urine 650 550 Straight 650 Post Void Residual 200 Other: Voiding Method Urinal Urinal # Voids 1 1 3 # Bowel Movements 1 - Exam GENERAL EXAM: Alert, 83-year-old white male, currently on 4 L per nasal cannula comfortable in no apparent distress. HEAD: Normocephalic/atraumatic. EYES: Normal reaction of pupils, equal size. Conjunctiva pink, sclera white. NOSE: Clear with pink turbinates. THROAT: No erythema or exudates. NECK: No masses, no JVD, no thyroid enlargement, no adenopathy. CHEST: No chest wall deformity. Symmetrical expansion. LUNGS: Equal air entry with no crackles, wheeze, rhonchi or dullness. CVS: Regular rate and rhythm, normal S1 and S2, no gallops, no murmurs, no rubs ABDOMEN: Soft, slightly distended. No hepatosplenomegaly, normal bowel sounds, no guarding or rigidity. EXTREMITIES: No clubbing, no edema, no cyanosis, 2+ pulses and upper and lower extremities. MUSCULOSKELETAL: Muscle strength and tone normal. SPINE: No scoliosis or deformity SKIN: No rashes CENTRAL NERVOUS SYSTEM: Alert and oriented -3. No focal deficits, tone is normal in all 4 extremities. PSYCHIATRIC: Alert and oriented -3. Appropriate affect. Intact judgment and insight. - Labs CBC & Chem 7: 12/05/18 06:18 12/05/18 06:18 Labs: Abnormal Lab Results - Last 24 Hours (Table) 12/04/18 12/05/18 12/05/18 Range/Units 21:36 06:18 06:18 RBC 2.94 L (4.30-5.90) m/uL Hgb 9.3 L (13.0-17.5) gm/dL Hct 31.3 L (39.0-53.0) % MCV 106.7 H (80.0-100.0) fL MCHC 29.5 L (31.0-37.0) g/dL Lymphocytes # 0.8 L (1.0-4.8) k/uL Chloride 110 H (98-107) mmol/L BUN 47 H (9-20) mg/dL Creatinine 1.86 H (0.66-1.25) mg/dL POC Glucose (mg/dL) 269 H (75-99) mg/dL Magnesium 2.6 H (1.6-2.3) mg/dL Iron (65-175) ug/dL TIBC (228-460) ug/dL Total Protein 5.1 L (6.3-8.2) g/dL Albumin 2.8 L (3.5-5.0) g/dL 12/05/18 12/05/18 12/05/18 Range/Units 06:18 12:03 16:27 RBC (4.30-5.90) m/uL Hgb (13.0-17.5) gm/dL Hct (39.0-53.0) % MCV (80.0-100.0) fL MCHC (31.0-37.0) g/dL Lymphocytes # (1.0-4.8) k/uL Chloride (98-107) mmol/L BUN (9-20) mg/dL Creatinine (0.66-1.25) mg/dL POC Glucose (mg/dL) 138 H 295 H (75-99) mg/dL Magnesium (1.6-2.3) mg/dL Iron 58 L (65-175) ug/dL TIBC 224 L (228-460) ug/dL Total Protein (6.3-8.2) g/dL Albumin (3.5-5.0) g/dL Assessment and Plan Plan: Assessment: #1. Acute hypoxemic respiratory failure secondary to acute exacerbation of congestive heart failure with diastolic dysfunction, chest x-ray showed interstitial edema, oxygen by low lung volumes, multiple left pleural effusion, and left basilar atelectasis. #2. Patient was treated for possibility of healthcare acquired pneumonia, initial chest x-ray showed a new left lower lobe infiltrate, could not exclude possibility of pneumonia #3. Acute kidney injury improving from last admission. Nephrology is following , patient did have some urinary retention during last admission #4. Abdominal distention, abdominal x-ray showed underlying ileus or enteritis #5. Recent lacunar infarct #6. Chronic kidney disease stage IV #7. Paroxysmal atrial fibrillation on Eliquis, currently in sinus #8. Hyperkalemia #9. Type 2 diabetes mellitus #10. History of hypothyroidism #11. Hypertension #12. GERD #13. Anxiety and depression #14. Elevated right hemidiaphragm with right lower lobe density related to atelectasis #15. Coronary artery disease with previous stenting #16. Obstructive sleep apnea not using CPAP Plan: Patient remains stable from pulmonary perspective, encourage deep breathing and coughing, sitting up in the chair, ambulating, he does take shallow breaths, but last chest x-ray from 12/03/2017 showed improvement in the appearance of the right hilar infiltrate, clinically patient is afebrile, denies any worsening dyspnea. His antibiotics have been discontinued, no fever or chills, is having some issues with abdominal distention, some nausea. We will continue to follow on as-needed basis. I performed a history & physical examination of the patient and discussed their management with my nurse practitioner, Jody Whitfield. I reviewed the nurse practitioner's note and agree with the documented findings and plan of care. Lung sounds are positive for crackles over bilateral lower lobes. The findings and the impression was discussed with the patient. I attest to the documentation by the nurse practitioner. Time with Patient: Less than 30
[2018-12-05 20:17] LABS: Glucose,Whole Blood 301 mg/dL (75-99)
[2018-12-05] MEDS: ATORVASTATIN 20 MG TAB PO SCH (21:09)
[2018-12-05] MEDS: TAMSULOSIN 0.4 MG CAP.ER.24H PO SCH (21:10)
[2018-12-05] MEDS: MELATONIN 3 MG TABLET PO PRN (21:10)
[2018-12-05] MEDS: LACTULOSE 20 GM/30 ML CUP PO PRN (21:10)
[2018-12-05] MEDS: INSULIN DETEMIR 100 UNIT/ML 10 ML VIAL SQ SCH (21:24)
[2018-12-05] MEDS: HYDROmorphone 0.5 MG/0.5 ML SYRINGE IVP PRN (21:43)
[2018-12-06 00:12] LABS: Glucose,Whole Blood 168 mg/dL (75-99)
[2018-12-06] MEDS: LORazepam 1 MG TAB PO PRN ×2 (03:48→10:08)
[2018-12-06] MEDS: ACETAMINOPHEN TAB 325 MG TAB PO SCH ×6 (03:49→21:44)
[2018-12-06] MEDS: LEVOTHYROXINE 88 MCG TAB PO SCH (06:16)
[2018-12-06] MEDS: IPRATROPIUM-ALBUTEROL 3 ML NEB INHALATION SCH ×4 (06:49→18:52)
[2018-12-06] MEDS: INSULIN ASPART 100 UNIT/ML 1 ML 10 ML VIAL SQ SCH ×4 (07:36→21:42)
[2018-12-06 07:46] LABS: Glucose,Whole Blood 114 mg/dL (75-99)
[2018-12-06 08:22] LABS: Basophils % (A) 0 %; Eosinophils # (A) 0.1 k/uL (0-0.7); Eosinophils % (A) 1 %; HCT 31.4 % (39.0-53.0); HGB 9.4 gm/dL (13.0-17.5); Hypochromasia Moderate; Lymphocytes # (A) 0.9 k/uL (1.0-4.8); Lymphocytes % (A) 8 %; MCHC 30.1 g/dL (31.0-37.0); MCV 106.2 fL (80.0-100.0); Macrocytosis Moderate; Mean Platelet Volume 7.6; Monocytes # (A) 0.7 k/uL (0-1.0); Monocytes % (A) 6 %; Neutrophils % (A) 83 %; Platelet Count 241 k/uL (150-450); RBC 2.96 m/uL (4.30-5.90); RDW 14.6 % (11.5-15.5); WBC 10.8 k/uL (3.8-10.6)
[2018-12-06 08:41] LABS: Albumin 2.9 g/dL (3.5-5.0); Calcium 9.2 mg/dL (8.4-10.2); Potassium 5.1 mmol/L (3.5-5.1); Total Bilirubin 0.4 mg/dL (0.2-1.3); Total Protein 5.1 g/dL (6.3-8.2)
[2018-12-06] MEDS: PANTOPRAZOLE 40 MG TABLET PO SCH (08:57)
[2018-12-06] MEDS: APIXABAN 2.5 MG TABLET PO SCH ×2 (08:57→21:42)
[2018-12-06] MEDS: ASPIRIN 81 MG PO SCH (08:58)
[2018-12-06] MEDS: buPROPion 75 MG TAB PO SCH (08:58)
[2018-12-06] MEDS: ATENOLOL 50 MG TAB PO SCH (08:58)
[2018-12-06] MEDS: CITALOPRAM HYDROBROMIDE 20 MG TAB PO SCH (08:59)
[2018-12-06] MEDS: CYANOCOBALAMIN 500 MCG TAB PO SCH (08:59)
[2018-12-06] MEDS: DOCUSATE 100 MG CAP PO SCH ×2 (08:59→21:42)
[2018-12-06] MEDS: hydrALAZINE HCL 50 MG TAB PO SCH ×3 (09:00→21:44)
[2018-12-06] MEDS: FLUTICASONE 50MCG/SPRAY NASAL 16GM EA NOSTRIL SCH (09:01)
[2018-12-06] MEDS: LACTULOSE 20 GM/30 ML CUP PO SCH ×3 (09:01→21:45)
[2018-12-06] MEDS: predniSONE 20 MG TAB PO SCH (09:01)
[2018-12-06] MEDS: FERROUS SULFATE 325 MG TAB PO SCH ×2 (09:11→21:42)
[2018-12-06] MEDS: DICYCLOMINE 10 MG CAP PO SCH ×4 (10:07→21:44)
[2018-12-06] MEDS: FINASTERIDE 5 MG TAB PO SCH (10:07)
[2018-12-06] MEDS: risperiDONE 1 MG TAB PO SCH ×2 (10:07→21:43)
[2018-12-06 11:13] LABS: Glucose,Whole Blood 210 mg/dL (75-99)
[2018-12-06] MEDS: amLODIPine 5 MG TAB PO SCH (11:37)
[2018-12-06] MEDS ORDERED: FUROSEMIDE 10 MG/ML 4 ML VIAL IV STA (13:37)
--- NOTE | 2018-12-06 13:37 | P.PN ---
Subjective Patient is seen in follow-up for acute kidney injury on chronic any disease. 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 Creatinine was near 1.4 in October 2018. It has been staying in the range of 1.7-2 recently. Patient admits to good urine output. No vomiting or diarrhea. No significant cough. Hemodynamically stable. He admits to edema in his legs today. Vital signs are stable. General: The patient appeared well nourished and normally developed. HEENT: Head exam is unremarkable. Neck is without jugular venous distension. LUNGS: Lungs are clear to auscultation and percussion. Breath sounds decreased. HEART: Rate and Rhythm are regular. First and second heart sounds normal. No murmurs, rubs or gallops. ABDOMEN: Abdominal exam reveals normal bowel sounds. Non-tender and non- distended. No evidence of peritonitis. EXTREMITITES: 1+ edema. Objective - Vital Signs Vital signs: Vital Signs Temp 98.3 F 12/06/18 08:26 Pulse 61 12/06/18 10:12 Resp 17 12/06/18 10:12 BP 133/63 12/06/18 11:40 Pulse Ox 95 12/06/18 08:26 Intake & Output 12/05/18 12/06/18 12/06/18 18:59 06:59 18:59 Intake Total 712 100 Output Total 400 Balance 712 -300 Weight 103 kg Intake: Oral 712 100 Output: Urine 400 Other: Voiding Method Incontinent Incontinent Incontinent # Voids 3 - Labs CBC & Chem 7: 12/06/18 07:03 12/06/18 07:03 Labs: Abnormal Lab Results - Last 24 Hours (Table) 12/05/18 12/05/18 12/05/18 Range/Units 06:18 16:27 20:14 WBC (3.8-10.6) k/uL RBC (4.30-5.90) m/uL Hgb (13.0-17.5) gm/dL Hct (39.0-53.0) % MCV (80.0-100.0) fL MCHC (31.0-37.0) g/dL Neutrophils # (1.3-7.7) k/uL Lymphocytes # (1.0-4.8) k/uL Chloride (98-107) mmol/L BUN (9-20) mg/dL Creatinine (0.66-1.25) mg/dL Glucose (74-99) mg/dL POC Glucose (mg/dL) 295 H 301 H (75-99) mg/dL Iron 58 L (65-175) ug/dL TIBC 224 L (228-460) ug/dL Total Protein (6.3-8.2) g/dL Albumin (3.5-5.0) g/dL 12/06/18 12/06/18 12/06/18 Range/Units 00:04 07:03 07:03 WBC 10.8 H (3.8-10.6) k/uL RBC 2.96 L (4.30-5.90) m/uL Hgb 9.4 L (13.0-17.5) gm/dL Hct 31.4 L (39.0-53.0) % MCV 106.2 H (80.0-100.0) fL MCHC 30.1 L (31.0-37.0) g/dL Neutrophils # 9.0 H (1.3-7.7) k/uL Lymphocytes # 0.9 L (1.0-4.8) k/uL Chloride 112 H (98-107) mmol/L BUN 48 H (9-20) mg/dL Creatinine 1.78 H (0.66-1.25) mg/dL Glucose 103 H (74-99) mg/dL POC Glucose (mg/dL) 168 H (75-99) mg/dL Iron (65-175) ug/dL TIBC (228-460) ug/dL Total Protein 5.1 L (6.3-8.2) g/dL Albumin 2.9 L (3.5-5.0) g/dL 12/06/18 12/06/18 Range/Units 07:34 11:12 WBC (3.8-10.6) k/uL RBC (4.30-5.90) m/uL Hgb (13.0-17.5) gm/dL Hct (39.0-53.0) % MCV (80.0-100.0) fL MCHC (31.0-37.0) g/dL Neutrophils # (1.3-7.7) k/uL Lymphocytes # (1.0-4.8) k/uL Chloride (98-107) mmol/L BUN (9-20) mg/dL Creatinine (0.66-1.25) mg/dL Glucose (74-99) mg/dL POC Glucose (mg/dL) 114 H 210 H (75-99) mg/dL Iron (65-175) ug/dL TIBC (228-460) ug/dL Total Protein (6.3-8.2) g/dL Albumin (3.5-5.0) g/dL Assessment and Plan Plan: Assessment: 1. Chronic kidney disease stage IIIB/4 secondary to diabetic kidney disease with baseline creatinine now near 1.7-2. It was 1.4 in October 2018. 2. History of urinary retention. Currently does not have a Lamas catheter. He 's been requiring intermittent straight catheterizations. Urology following. 3. Pneumonia status post antibiotics. 4. BPH maintained on Flomax. 5. Diabetes mellitus. 6. Benign hypertension. Labile. Most recent blood pressure 133/63. 7. Lower extremity edema. Plan: Lasix 40 mg IV once today. Maintain current antihypertensives. Encourage oral intake. Avoid nephrotoxins. Maintain Flomax.
--- NOTE | 2018-12-06 15:17 | P.PN ---
Subjective Progress Note Date: 12/06/18 Interval history: this is a 83-year-old recently discharged to group home came back with symptoms shortness of breath. Patient appears to be mostly anxiety and patient when questioned clearly he is quite a bit anxious and he is quite a bit claustrophobic which was his main concern. Patient also has minimal cough with white to yellowish sputum production chest x-ray was read as left lower lobe pneumonia because of which patient was admitted for healthcare associated pneumonia patient was given Zosyn and levofloxacin. Patient doesn't have any fevers does have mild leukocytosis clinically doesn't appear to have pneumonia although Zosyn will be continued levofloxacin will be discontinued patient was believed to have heart failure as well although patient has some peripheral edema mild pitting patient doesn't have any other signs of CHF patient doesn't have any JVD no crackles on exam. I do not believe patient is in CHF exacerbation patient that creatinine is 1.9 baseline appears to be around 2.1 during his last hospitalization. Patient is probably more anxious rather than having pneumonia CHF ,cannot completely rule out pneumonia, therefore we'll continue antibiotics. IV diuretics discontinued with further diuretics as per nephrology. evaluated by psychiatry with inpatient mental health unit recommended,given his suicidal thoughts over the last week,daily hallucinations. On 11/30/2018 patient is now admitted to Dr. Pizano. On 11/29/2018 patient was discharged mental health unit but discharged on hold due to developing of hypoxic respiratory failure requiring BiPAP. Today patient remains confused. Per nursing staff patient was noncompliant with BiPAP. Creatinine improving to 1.70. BNP 7050. We'll consult cardiology services. Abdominal x-ray completed showing possibility for underlying ileus or enteritis , follow-up as indicated dissection is suspected clinically. Additional findings above. Dr. Nova has been consulted for GI services Chest x-ray completed showing interstitial edema situated by low lung volumes, right midlung atelectasis and small left pleural effusion with left basilar atelectasis. Suspicion for cardiogenic fluid overload however superimposed left perihilar pneumonia remains possible. Follow-up to resolution. Cardiology and pulmonary service is consulted Increased confusion. Psychiatry following Acute kidney injury. Nephrology following On 12/01/2018 patient is currently resting in bed. Patient at this time is complaining of some nausea. Dr. Nova is following for surgical services. Patient did report a large bowel movement yesterday. Cardiology services have been consulted. Nephrology services also following. Increased creatinine level. At this time patient denies chest pain or shortness breath. Patient denies nausea vomiting or diarrhea. Patient denies any urinary burning or frequency On 12/02/2018 patient is currently resting in bed. Per nursing staff patient is refusing to wear BiPAP. This time patient denies chest pain or shortness of breath. Patient denies nausea vomiting or diarrhea. Patient denies any urinary burning or frequency. Creatinine improving to 1.85. Patient was hypoglycemic this a.m. with a blood sugar 40. On 12/03/2017 patient is currently sitting up in chair. At this time patient is complaining of abdominal pain. CT of abdomen completed showing bilateral pleural effusions that could relate to congestive heart failure. Subcutaneous edema also consistent with congestive heart failure. Atheromatous aorta. Extensive colonic diverticulosis without diverticulitis. Gallstones. Dr. Nova for surgical services is following. Along with cardiology and pulmonary services. This time patient states improvement with shortness of breath. Patient denies chest pain. Patient denies any urinary burning or frequency On 12/04/2017 patient is currently resting in bed. Patient does state some improvement with abdominal pain. Patient was seen by surgical services. At this time patient states he is slight improvement with shortness of breath. Patient denies chest pain. Patient denies any urinary burning or frequency. On 12/05/2017 patient is currently resting in bed. Patient denies any abdominal pain at this time. Patient is having normal bowel movements. At this time patient denies shortness of breath or chest pain. Patient denies nausea vomiting or diarrhea. Patient denies any urinary burning or frequency. Patient was evaluated by urology services. Again I discussed with patient's nurse the patient needs to be in suicide precautions until cleared and documented by psychiatry. Nurse verbalized understanding. Psychiatry to assess patient for DC plan. And patient mental health unit versus [facility]. On 12/06/2017 patient is currently resting in bed. Had family meeting in regards to plan of care. Updated on consulting provider recommendations. Patient's family requesting that patient stay in hospital for an additional day. Patient remains on nasal cannula 4 L. Patient was evaluated by pulmonary services. Patient also still having occasional upset stomach. Patient was seen and cleared by surgical services. At this time patient denies chest pain. Patient denies nausea vomiting or diarrhea. Patient denies any urinary burning or frequency. Norvasc has been added for adequate blood pressure control. Objective - Vital Signs Vital signs: Vital Signs Temp 98.2 F 12/06/18 13:40 Pulse 59 L 12/06/18 13:40 Resp 16 12/06/18 13:40 BP 143/63 12/06/18 13:40 Pulse Ox 90 L 12/06/18 13:40 Intake & Output 12/05/18 12/06/18 12/06/18 18:59 06:59 18:59 Intake Total 712 100 Output Total 400 Balance 712 -300 Weight 103 kg Intake: Oral 712 100 Output: Urine 400 Other: Voiding Method Incontinent Incontinent Incontinent # Voids 3 - Exam Head normocephalic Neck supple Lungs diminished bilaterally Heart regular rate and rhythm S1-S2, no rub or gallop Abdomen is soft nontender nondistended positive bowel sounds no hepatosplenomegaly Extremities no edema - Labs CBC & Chem 7: 12/06/18 07:03 12/06/18 07:03 Labs: Abnormal Lab Results - Last 24 Hours (Table) 12/05/18 12/05/18 12/05/18 Range/Units 06:18 16:27 20:14 WBC (3.8-10.6) k/uL RBC (4.30-5.90) m/uL Hgb (13.0-17.5) gm/dL Hct (39.0-53.0) % MCV (80.0-100.0) fL MCHC (31.0-37.0) g/dL Neutrophils # (1.3-7.7) k/uL Lymphocytes # (1.0-4.8) k/uL Chloride (98-107) mmol/L BUN (9-20) mg/dL Creatinine (0.66-1.25) mg/dL Glucose (74-99) mg/dL POC Glucose (mg/dL) 295 H 301 H (75-99) mg/dL Iron 58 L (65-175) ug/dL TIBC 224 L (228-460) ug/dL Total Protein (6.3-8.2) g/dL Albumin (3.5-5.0) g/dL 12/06/18 12/06/18 12/06/18 Range/Units 00:04 07:03 07:03 WBC 10.8 H (3.8-10.6) k/uL RBC 2.96 L (4.30-5.90) m/uL Hgb 9.4 L (13.0-17.5) gm/dL Hct 31.4 L (39.0-53.0) % MCV 106.2 H (80.0-100.0) fL MCHC 30.1 L (31.0-37.0) g/dL Neutrophils # 9.0 H (1.3-7.7) k/uL Lymphocytes # 0.9 L (1.0-4.8) k/uL Chloride 112 H (98-107) mmol/L BUN 48 H (9-20) mg/dL Creatinine 1.78 H (0.66-1.25) mg/dL Glucose 103 H (74-99) mg/dL POC Glucose (mg/dL) 168 H (75-99) mg/dL Iron (65-175) ug/dL TIBC (228-460) ug/dL Total Protein 5.1 L (6.3-8.2) g/dL Albumin 2.9 L (3.5-5.0) g/dL 12/06/18 12/06/18 Range/Units 07:34 11:12 WBC (3.8-10.6) k/uL RBC (4.30-5.90) m/uL Hgb (13.0-17.5) gm/dL Hct (39.0-53.0) % MCV (80.0-100.0) fL MCHC (31.0-37.0) g/dL Neutrophils # (1.3-7.7) k/uL Lymphocytes # (1.0-4.8) k/uL Chloride (98-107) mmol/L BUN (9-20) mg/dL Creatinine (0.66-1.25) mg/dL Glucose (74-99) mg/dL POC Glucose (mg/dL) 114 H 210 H (75-99) mg/dL Iron (65-175) ug/dL TIBC (228-460) ug/dL Total Protein (6.3-8.2) g/dL Albumin (3.5-5.0) g/dL Assessment and Plan Assessment: 1.Acute hypoxic respiratory failure multifactorial, possibly acute on chronic CHF-diastolic dysfunction, possibly healthcare associated pneumonia left lower lobe, anxiety. Chest x-ray completed showing interstitial edema accentuated by low lung volumes, right midlung atelectasis, and small left pleural effusion with left basilar atelectasis. Suspicion for cardiogenic fluid overload however superimposed left perihilar pneumonia remains possible. Follow-up to resolution. Dr. Marin for pulmonary care. Dr. Bella consulted for cardiology services. Patient currently maintained on Zosyn. Elevated d-dimer. VQ scan completed showing stable posterior perfusion defect right lower lobe, elevated right hemidiaphragm. Cardiology following. Lasix currently on hold due to prerenal insufficiency. Patient remains on prednisone 40. Per pulmonary patient remains stable from pulmonary perspective, antibiotics can be DC'd. Patient to be DC'd on prednisone taper 2. major depressive disorder. Patient was reevaluated by psychiatry on 2017. Patient not currently suicidal or homicidal. Per psychiatry patient when medically stable pain moving to physical rehab 3. Recent stroke with some mild residual weakness in the right hand. 4. Paroximal Atrial fibrillation,currently sinus rhythm. maintained on eliquis 5. acute on Chronic kidney disease stage 4. Creatinine increasing to 2.03. Nephrology services have been reconsulted. Creatinine improving to 1.86. Patient was given Lasix 40 mg IV once today. Patient has been cleared by nephrology services for discharge 6.Type 2 diabetes mellitus 7. History of thyroid cancer,hypothyroid 8. Essential hypertension. Cardiology services have increased atenolol for adequate blood pressure control. Norvasc has also been added 9. gastric esophageal reflux disease 10. anxiety and depression. Evaluated by psychiatry, diagnosed with major depressive disorder with psychotic features. 11. Abdominal pain with Possible ileus. Abdominal x-ray completed showing possibly for Ileus or enteris. Follow-up as indicated if obstruction is suspected clinically. Per surgical solution services ileus appears to be resolving with bowel function evident. CT of abdomen and pelvis completed without contrast. Type showing bilateral pleural effusions that could relate to congestive heart failure. Subcutaneous edema also consistent with congestive heart failure. Athermatous Aorta. Extensive, chronic diverticulosis without diverticulitis. Gallstones. Per surgical services CT of abdomen and pelvis did not show any significant acute findings with bowel. Per surgical services of systemic could be influenced by high level of anxiety. Bentyl for abdominal discomfort has been added 12. Hypoglycemia. Blood sugar 40. Will discontinue aspart 5 units with meals. Continue sliding scale insulin and long-acting insulin coverage. Long- acting insulin has been decreased to 15 units subcu nightly. Blood sugars have improved. Patient to be DC'd on 15 units subcu nightly along with sliding scale coverage. 13. previous suicidal ideation. Patient was reevaluated by psychiatry on 2017. Patient not currently suicidal or homicidal. Per psychiatry patient when medically stable pain moving to physical rehab 14. Urinary retention. Ultrasound of kidneys renal and bladder completed showing left renal cyst appears simple. Per urology Proscar has been added. Patient will continue to be assessed with post void residuals. 15. Ischemic cardiomyopathy patient was seen and evaluated by cardiology services. Occasions adjusted for adequate blood pressure 16. Iron deficiency anemia. Ferrous sulfate has been added DVT prophylaxis eliquis, GI prophylaxis Protonix. Discharge planning to return to [facility] I performed an examination of the patient and discussed their management with the Nurse Practitioner. I have reviewed the Nurse Practitioner's notes and agree with the documented findings and plan of care
[2018-12-06] MEDS: LORazepam 0.5 MG TAB PO SCH (15:46)
[2018-12-06 17:27] LABS: Glucose,Whole Blood 294 mg/dL (75-99)
[2018-12-06] MEDS: HYDROmorphone 2 MG TAB PO PRN (20:33)
[2018-12-06 20:36] LABS: Glucose,Whole Blood 325 mg/dL (75-99)
[2018-12-06] MEDS: ATORVASTATIN 20 MG TAB PO SCH (21:42)
[2018-12-06] MEDS: TAMSULOSIN 0.4 MG CAP.ER.24H PO SCH (21:43)
[2018-12-06] MEDS: INSULIN DETEMIR 100 UNIT/ML 10 ML VIAL SQ SCH (21:43)
[2018-12-06] MEDS: MELATONIN 3 MG TABLET PO PRN (21:44)
[2018-12-07] MEDS: LORazepam 0.5 MG TAB PO SCH ×4 (01:03→23:26)
[2018-12-07] MEDS: ACETAMINOPHEN TAB 325 MG TAB PO SCH ×7 (03:25→21:15)
[2018-12-07] MEDS: LEVOTHYROXINE 88 MCG TAB PO SCH (06:00)
[2018-12-07 07:10] LABS: Glucose,Whole Blood 65 mg/dL (75-99)
[2018-12-07 07:23] LABS: Basophils % (A) 0 %; Eosinophils % (A) 0 %; HCT 31.1 % (39.0-53.0); HGB 9.4 gm/dL (13.0-17.5); Hypochromasia Slight; Lymphocytes # (A) 1.1 k/uL (1.0-4.8); Lymphocytes % (A) 14 %; MCH 31.2 pg (25.0-35.0); MCHC 30.1 g/dL (31.0-37.0); MCV 103.6 fL (80.0-100.0); Macrocytosis Slight; Mean Platelet Volume 7.7; Monocytes # (A) 0.6 k/uL (0-1.0); Monocytes % (A) 8 %; Neutrophils # (A) 5.8 k/uL (1.3-7.7); Neutrophils % (A) 76 %; Platelet Count 201 k/uL (150-450); RBC 3.01 m/uL (4.30-5.90); RDW 14.6 % (11.5-15.5); WBC 7.7 k/uL (3.8-10.6)
[2018-12-07 07:26] LABS: Glucose,Whole Blood 72 mg/dL (75-99)
[2018-12-07 07:33] LABS: Albumin 2.8 g/dL (3.5-5.0); Calcium 9.2 mg/dL (8.4-10.2); Potassium 4.7 mmol/L (3.5-5.1); Total Bilirubin 0.4 mg/dL (0.2-1.3); Total Protein 5.1 g/dL (6.3-8.2)
[2018-12-07] MEDS: INSULIN ASPART 100 UNIT/ML 1 ML 10 ML VIAL SQ SCH ×4 (07:40→21:13)
[2018-12-07] MEDS: IPRATROPIUM-ALBUTEROL 3 ML NEB INHALATION SCH ×4 (08:15→20:07)
[2018-12-07] MEDS ORDERED: ONDANSETRON 4 MG/2 ML VIAL IM STA (09:12)
[2018-12-07] MEDS: ASPIRIN 81 MG PO SCH (09:26)
[2018-12-07] MEDS: predniSONE 20 MG TAB PO SCH (09:26)
[2018-12-07] MEDS: LACTULOSE 20 GM/30 ML CUP PO SCH ×3 (09:26→20:26)
[2018-12-07] MEDS: DOCUSATE 100 MG CAP PO SCH ×2 (09:26→20:26)
[2018-12-07] MEDS: CYANOCOBALAMIN 500 MCG TAB PO SCH (09:26)
[2018-12-07] MEDS: amLODIPine 5 MG TAB PO SCH (09:26)
[2018-12-07] MEDS: FERROUS SULFATE 325 MG TAB PO SCH ×2 (09:26→21:13)
[2018-12-07] MEDS: ATENOLOL 50 MG TAB PO SCH (09:27)
[2018-12-07] MEDS: hydrALAZINE HCL 50 MG TAB PO SCH ×3 (09:27→21:16)
[2018-12-07] MEDS: CITALOPRAM HYDROBROMIDE 20 MG TAB PO SCH (09:27)
[2018-12-07] MEDS: PANTOPRAZOLE 40 MG TABLET PO SCH (09:27)
[2018-12-07] MEDS: APIXABAN 2.5 MG TABLET PO SCH ×2 (09:27→21:13)
[2018-12-07] MEDS: buPROPion 75 MG TAB PO SCH (09:29)
[2018-12-07] MEDS: DICYCLOMINE 10 MG CAP PO SCH ×4 (09:30→21:16)
[2018-12-07] MEDS: risperiDONE 1 MG TAB PO SCH ×2 (09:30→21:15)
[2018-12-07] MEDS: FINASTERIDE 5 MG TAB PO SCH (09:31)
[2018-12-07] MEDS: FLUTICASONE 50MCG/SPRAY NASAL 16GM EA NOSTRIL SCH (09:32)
--- NOTE | 2018-12-07 09:45 | P.PN ---
Progress Note - Text Progress Note Date: 12/07/18 The patient complains of nausea and the source of this is not clear. His Lamas catheter was removed 2 days ago and a bladder scan was performed yesterday that showed only 78 mL. He has had problems with urge incontinence and is currently managed with an exdwelling catheter. Bladder scan will be repeated and if his postvoid residual remains low he will be given a trial of a very low dose of oxybutynin to see if this will help reduce his urge incontinence.
[2018-12-07 11:45] LABS: Glucose,Whole Blood 203 mg/dL (75-99)
[2018-12-07] MEDS ORDERED: CHOLECALCIFEROL 1,000 UNIT TAB PO SCH (12:00)
[2018-12-07] MEDS: OXYBUTYNIN CHLORIDE 5 MG TAB PO SCH ×2 (14:14→21:14)
--- NOTE | 2018-12-07 16:58 | P.PN ---
Subjective Progress Note Date: 12/07/18 Interval history: this is a 83-year-old recently discharged to [facility] came back with symptoms shortness of breath. Patient appears to be mostly anxiety and patient when questioned clearly he is quite a bit anxious and he is quite a bit claustrophobic which was his main concern. Patient also has minimal cough with white to yellowish sputum production chest x-ray was read as left lower lobe pneumonia because of which patient was admitted for healthcare associated pneumonia patient was given Zosyn and levofloxacin. Patient doesn't have any fevers does have mild leukocytosis clinically doesn't appear to have pneumonia although Zosyn will be continued levofloxacin will be discontinued patient was believed to have heart failure as well although patient has some peripheral edema mild pitting patient doesn't have any other signs of CHF patient doesn't have any JVD no crackles on exam. I do not believe patient is in CHF exacerbation patient that creatinine is 1.9 baseline appears to be around 2.1 during his last hospitalization. Patient is probably more anxious rather than having pneumonia CHF ,cannot completely rule out pneumonia, therefore we'll continue antibiotics. IV diuretics discontinued with further diuretics as per nephrology. evaluated by psychiatry with inpatient mental health unit recommended,given his suicidal thoughts over the last week,daily hallucinations. On 11/30/2018 patient is now admitted to Dr. Pizano. On 11/29/2018 patient was discharged mental health unit but discharged on hold due to developing of hypoxic respiratory failure requiring BiPAP. Today patient remains confused. Per nursing staff patient was noncompliant with BiPAP. Creatinine improving to 1.70. BNP 7050. We'll consult cardiology services. Abdominal x-ray completed showing possibility for underlying ileus or enteritis , follow-up as indicated dissection is suspected clinically. Additional findings above. Dr. Nova has been consulted for GI services Chest x-ray completed showing interstitial edema situated by low lung volumes, right midlung atelectasis and small left pleural effusion with left basilar atelectasis. Suspicion for cardiogenic fluid overload however superimposed left perihilar pneumonia remains possible. Follow-up to resolution. Cardiology and pulmonary service is consulted Increased confusion. Psychiatry following Acute kidney injury. Nephrology following On 12/01/2018 patient is currently resting in bed. Patient at this time is complaining of some nausea. Dr. Nova is following for surgical services. Patient did report a large bowel movement yesterday. Cardiology services have been consulted. Nephrology services also following. Increased creatinine level. At this time patient denies chest pain or shortness breath. Patient denies nausea vomiting or diarrhea. Patient denies any urinary burning or frequency On 12/02/2018 patient is currently resting in bed. Per nursing staff patient is refusing to wear BiPAP. This time patient denies chest pain or shortness of breath. Patient denies nausea vomiting or diarrhea. Patient denies any urinary burning or frequency. Creatinine improving to 1.85. Patient was hypoglycemic this a.m. with a blood sugar 40. On 12/03/2017 patient is currently sitting up in chair. At this time patient is complaining of abdominal pain. CT of abdomen completed showing bilateral pleural effusions that could relate to congestive heart failure. Subcutaneous edema also consistent with congestive heart failure. Atheromatous aorta. Extensive colonic diverticulosis without diverticulitis. Gallstones. Dr. Nova for surgical services is following. Along with cardiology and pulmonary services. This time patient states improvement with shortness of breath. Patient denies chest pain. Patient denies any urinary burning or frequency On 12/04/2017 patient is currently resting in bed. Patient does state some improvement with abdominal pain. Patient was seen by surgical services. At this time patient states he is slight improvement with shortness of breath. Patient denies chest pain. Patient denies any urinary burning or frequency. On 12/05/2017 patient is currently resting in bed. Patient denies any abdominal pain at this time. Patient is having normal bowel movements. At this time patient denies shortness of breath or chest pain. Patient denies nausea vomiting or diarrhea. Patient denies any urinary burning or frequency. Patient was evaluated by urology services. Again I discussed with patient's nurse the patient needs to be in suicide precautions until cleared and documented by psychiatry. Nurse verbalized understanding. Psychiatry to assess patient for DC plan. And patient mental health unit versus [facility]. On 12/06/2017 patient is currently resting in bed. Had family meeting in regards to plan of care. Updated on consulting provider recommendations. Patient's family requesting that patient stay in hospital for an additional day. Patient remains on nasal cannula 4 L. Patient was evaluated by pulmonary services. Patient also still having occasional upset stomach. Patient was seen and cleared by surgical services. At this time patient denies chest pain. Patient denies nausea vomiting or diarrhea. Patient denies any urinary burning or frequency. Norvasc has been added for adequate blood pressure control. Objective - Vital Signs Vital signs: Vital Signs Temp 98.1 F 12/07/18 12:50 Pulse 72 12/07/18 15:35 Resp 17 12/07/18 12:50 BP 132/57 12/07/18 12:50 Pulse Ox 90 L 12/07/18 12:50 Intake & Output 12/06/18 12/07/18 12/07/18 18:59 06:59 18:59 Intake Total 240 320 Output Total 600 Balance 240 -280 Intake: Oral 240 320 Output: Urine 600 Other: Voiding Method Incontinent Diaper Diaper Incontinent Incontinent # Voids 6 # Bowel Movements 1 - Exam Head normocephalic and atraumatic Neck supple no JVD no goiter Lungs diminished bilaterally Heart regular rate and rhythm S1-S2, no rub or gallop Abdomen is soft nontender nondistended positive bowel sounds no hepatosplenomegaly Extremities no edema no cyanosis or clubbing - Labs CBC & Chem 7: 12/07/18 06:16 12/07/18 06:16 Labs: Abnormal Lab Results - Last 24 Hours (Table) 12/06/18 12/06/18 12/07/18 Range/Units 17:26 20:35 06:16 RBC 3.01 L (4.30-5.90) m/uL Hgb 9.4 L (13.0-17.5) gm/dL Hct 31.1 L (39.0-53.0) % MCV 103.6 H (80.0-100.0) fL MCHC 30.1 L (31.0-37.0) g/dL Chloride (98-107) mmol/L BUN (9-20) mg/dL Creatinine (0.66-1.25) mg/dL Glucose (74-99) mg/dL POC Glucose (mg/dL) 294 H 325 H (75-99) mg/dL Total Protein (6.3-8.2) g/dL Albumin (3.5-5.0) g/dL 12/07/18 12/07/18 12/07/18 Range/Units 06:16 07:08 07:25 RBC (4.30-5.90) m/uL Hgb (13.0-17.5) gm/dL Hct (39.0-53.0) % MCV (80.0-100.0) fL MCHC (31.0-37.0) g/dL Chloride 109 H (98-107) mmol/L BUN 51 H (9-20) mg/dL Creatinine 1.81 H (0.66-1.25) mg/dL Glucose 53 L (74-99) mg/dL POC Glucose (mg/dL) 65 L 72 L (75-99) mg/dL Total Protein 5.1 L (6.3-8.2) g/dL Albumin 2.8 L (3.5-5.0) g/dL 12/07/18 Range/Units 11:43 RBC (4.30-5.90) m/uL Hgb (13.0-17.5) gm/dL Hct (39.0-53.0) % MCV (80.0-100.0) fL MCHC (31.0-37.0) g/dL Chloride (98-107) mmol/L BUN (9-20) mg/dL Creatinine (0.66-1.25) mg/dL Glucose (74-99) mg/dL POC Glucose (mg/dL) 203 H (75-99) mg/dL Total Protein (6.3-8.2) g/dL Albumin (3.5-5.0) g/dL Assessment and Plan Plan: 1.Acute hypoxic respiratory failure multifactorial, possibly acute on chronic CHF-diastolic dysfunction, possibly healthcare associated pneumonia left lower lobe, anxiety. Chest x-ray completed showing interstitial edema accentuated by low lung volumes, right midlung atelectasis, and small left pleural effusion with left basilar atelectasis. Suspicion for cardiogenic fluid overload however superimposed left perihilar pneumonia remains possible. Follow-up to resolution. Dr. Marin for pulmonary care. Dr. Bella consulted for cardiology services. Patient currently maintained on Zosyn. Elevated d-dimer. VQ scan completed showing stable posterior perfusion defect right lower lobe, elevated right hemidiaphragm. Cardiology following. Lasix currently on hold due to prerenal insufficiency. Patient remains on prednisone 40. Per pulmonary patient remains stable from pulmonary perspective, antibiotics can be DC'd. Patient to be DC'd on prednisone taper 2. major depressive disorder. Patient was reevaluated by psychiatry on 2017. Patient not currently suicidal or homicidal. Per psychiatry patient when medically stable pain moving to physical rehab 3. Recent stroke with some mild residual weakness in the right hand. 4. Paroximal Atrial fibrillation,currently sinus rhythm. maintained on eliquis 5. acute on Chronic kidney disease stage 4. Creatinine increasing to 2.03. Nephrology services have been reconsulted. Creatinine improving to 1.86. Patient was given Lasix 40 mg IV once today. Patient has been cleared by nephrology services for discharge 6.Type 2 diabetes mellitus 7. History of thyroid cancer,hypothyroid 8. Essential hypertension. Cardiology services have increased atenolol for adequate blood pressure control. Norvasc has also been added 9. gastric esophageal reflux disease 10. anxiety and depression. Evaluated by psychiatry, diagnosed with major depressive disorder with psychotic features. 11. Abdominal pain with Possible ileus. Abdominal x-ray completed showing possibly for Ileus or enteris. Follow-up as indicated if obstruction is suspected clinically. Per surgical solution services ileus appears to be resolving with bowel function evident. CT of abdomen and pelvis completed without contrast. Type showing bilateral pleural effusions that could relate to congestive heart failure. Subcutaneous edema also consistent with congestive heart failure. Athermatous Aorta. Extensive, chronic diverticulosis without diverticulitis. Gallstones. Per surgical services CT of abdomen and pelvis did not show any significant acute findings with bowel. Per surgical services of systemic could be influenced by high level of anxiety. Bentyl for abdominal discomfort has been added 12. Hypoglycemia. Blood sugar 40. Will discontinue aspart 5 units with meals. Continue sliding scale insulin and long-acting insulin coverage. Long- acting insulin has been decreased to 15 units subcu nightly. Blood sugars have improved. Patient to be DC'd on 15 units subcu nightly along with sliding scale coverage. 13. previous suicidal ideation. Patient was reevaluated by psychiatry on 2017. Patient not currently suicidal or homicidal. Per psychiatry patient when medically stable pain moving to physical rehab 14. Urinary retention. Ultrasound of kidneys renal and bladder completed showing left renal cyst appears simple. Per urology Proscar has been added. Patient will continue to be assessed with post void residuals. 15. Ischemic cardiomyopathy patient was seen and evaluated by cardiology services. Occasions adjusted for adequate blood pressure 16. Iron deficiency anemia. Ferrous sulfate has been added DVT prophylaxis eliquis, GI prophylaxis Protonix. Discharge planning to return to [facility] on Sunday
[2018-12-07 17:12] LABS: Glucose,Whole Blood 315 mg/dL (75-99)
--- NOTE | 2018-12-07 17:22 | PN ---
PROGRESS NOTE Patient is seen for followup for chronic kidney disease and acute kidney injury. Renal function has been stable, serum creatinine staying at about 1.8 to 1.7 mg/dL. This morning patient was sleeping, is comfortable. He did wake up and was complaining of nausea. Blood pressure was 132/57, heart rate of 80 per minute. Patient is afebrile. EXAMINATION OF THE HEART: S1, S2. EXAMINATION OF LUNGS: Bilateral breath sounds are heard. ABDOMEN: Soft, non-tender. Examination of lower extremities shows no evidence of edema. [employer] exam is grossly intact. Labs show sodium 142, potassium 4.7, chloride 109, BUN 51, serum creatinine 1.8, hemoglobin 9.4 g/dL. ASSESSMENT: 1. Chronic kidney disease, NKF stage IIIB, secondary to diabetic nephropathy. 2. History of urine retention. Currently Lamas catheter has been removed. Requiring intermittent catheterizations, being followed by Urology. 3. Pneumonia, status post antibiotics. 4. Hypertension. Blood pressure was high last night, but it is much improved now. 5. Benign prostatic hypertrophy, maintained on Flomax. PLAN: Encourage increased oral intake. Repeat labs in a.m.. Avoid hypotension. MMODL / IJN: [id number] /
[2018-12-07] MEDS: ONDANSETRON 4 MG/2 ML VIAL IVP PRN (20:09)
[2018-12-07 20:27] LABS: Glucose,Whole Blood 364 mg/dL (75-99)
[2018-12-07] MEDS: ATORVASTATIN 20 MG TAB PO SCH (21:13)
[2018-12-07] MEDS: INSULIN DETEMIR 100 UNIT/ML 10 ML VIAL SQ SCH (21:14)
[2018-12-07] MEDS: TAMSULOSIN 0.4 MG CAP.ER.24H PO SCH (21:15)
[2018-12-07] MEDS: MELATONIN 3 MG TABLET PO PRN (21:17)
[2018-12-08] MEDS: ACETAMINOPHEN TAB 325 MG TAB PO SCH ×6 (03:04→21:29)
[2018-12-08] MEDS: LEVOTHYROXINE 88 MCG TAB PO SCH (05:59)
[2018-12-08 07:05] LABS: Glucose,Whole Blood 64 mg/dL (75-99)
[2018-12-08] MEDS: INSULIN ASPART 100 UNIT/ML 1 ML 10 ML VIAL SQ SCH ×4 (07:29→20:13)
[2018-12-08 07:34] LABS: Glucose,Whole Blood 96 mg/dL (75-99)
[2018-12-08 07:38] LABS: Basophils % (A) 0 %; Eosinophils # (A) 0.1 k/uL (0-0.7); Eosinophils % (A) 1 %; HCT 30.4 % (39.0-53.0); HGB 9.3 gm/dL (13.0-17.5); Hypochromasia Slight; Lymphocytes # (A) 1.2 k/uL (1.0-4.8); Lymphocytes % (A) 13 %; MCH 31.7 pg (25.0-35.0); MCHC 30.6 g/dL (31.0-37.0); MCV 103.5 fL (80.0-100.0); Macrocytosis Slight; Mean Platelet Volume 7.4; Monocytes # (A) 0.6 k/uL (0-1.0); Monocytes % (A) 7 %; Neutrophils # (A) 6.8 k/uL (1.3-7.7); Neutrophils % (A) 76 %; Platelet Count 206 k/uL (150-450); RBC 2.94 m/uL (4.30-5.90); RDW 14.8 % (11.5-15.5); WBC 8.9 k/uL (3.8-10.6)
[2018-12-08] MEDS: IPRATROPIUM-ALBUTEROL 3 ML NEB INHALATION SCH ×4 (07:46→19:53)
[2018-12-08 07:48] LABS: Albumin 2.7 g/dL (3.5-5.0); Calcium 8.9 mg/dL (8.4-10.2); Potassium 4.8 mmol/L (3.5-5.1); Total Bilirubin 0.3 mg/dL (0.2-1.3)
[2018-12-08] MEDS: hydrALAZINE HCL 50 MG TAB PO SCH ×3 (08:45→21:28)
[2018-12-08] MEDS: LORazepam 0.5 MG TAB PO SCH ×2 (08:45→15:56)
[2018-12-08] MEDS: CYANOCOBALAMIN 500 MCG TAB PO SCH (08:46)
[2018-12-08] MEDS: ASPIRIN 81 MG PO SCH (08:46)
[2018-12-08] MEDS: ATENOLOL 50 MG TAB PO SCH (08:46)
[2018-12-08] MEDS: DOCUSATE 100 MG CAP PO SCH ×2 (08:46→20:13)
[2018-12-08] MEDS: APIXABAN 2.5 MG TABLET PO SCH ×2 (08:46→20:13)
[2018-12-08] MEDS: CITALOPRAM HYDROBROMIDE 20 MG TAB PO SCH (08:46)
[2018-12-08] MEDS: PANTOPRAZOLE 40 MG TABLET PO SCH (08:46)
[2018-12-08] MEDS: predniSONE 20 MG TAB PO SCH (08:46)
[2018-12-08] MEDS: amLODIPine 5 MG TAB PO SCH (08:46)
[2018-12-08] MEDS: FERROUS SULFATE 325 MG TAB PO SCH ×2 (08:46→20:13)
[2018-12-08] MEDS: OXYBUTYNIN CHLORIDE 5 MG TAB PO SCH ×2 (08:48→20:12)
[2018-12-08] MEDS: DICYCLOMINE 10 MG CAP PO SCH ×4 (08:48→21:28)
[2018-12-08] MEDS: LACTULOSE 20 GM/30 ML CUP PO SCH ×3 (08:49→21:29)
[2018-12-08] MEDS: FINASTERIDE 5 MG TAB PO SCH (08:49)
[2018-12-08] MEDS: FLUTICASONE 50MCG/SPRAY NASAL 16GM EA NOSTRIL SCH (08:49)
[2018-12-08] MEDS: risperiDONE 1 MG TAB PO SCH ×2 (08:49→20:12)
[2018-12-08] MEDS: buPROPion 75 MG TAB PO SCH (08:50)
[2018-12-08 11:17] LABS: Glucose,Whole Blood 163 mg/dL (75-99)
--- NOTE | 2018-12-08 13:23 | P.PN ---
Subjective Progress Note Date: 12/08/18 Interval history: this is a 83-year-old recently discharged to intermediate came back with symptoms shortness of breath. Patient appears to be mostly anxiety and patient when questioned clearly he is quite a bit anxious and he is quite a bit claustrophobic which was his main concern. Patient also has minimal cough with white to yellowish sputum production chest x-ray was read as left lower lobe pneumonia because of which patient was admitted for healthcare associated pneumonia patient was given Zosyn and levofloxacin. Patient doesn't have any fevers does have mild leukocytosis clinically doesn't appear to have pneumonia although Zosyn will be continued levofloxacin will be discontinued patient was believed to have heart failure as well although patient has some peripheral edema mild pitting patient doesn't have any other signs of CHF patient doesn't have any JVD no crackles on exam. I do not believe patient is in CHF exacerbation patient that creatinine is 1.9 baseline appears to be around 2.1 during his last hospitalization. Patient is probably more anxious rather than having pneumonia CHF ,cannot completely rule out pneumonia, therefore we'll continue antibiotics. IV diuretics discontinued with further diuretics as per nephrology. evaluated by psychiatry with inpatient mental health unit recommended,given his suicidal thoughts over the last week,daily hallucinations. On 11/30/2018 patient is now admitted to Dr. Pizano. On 11/29/2018 patient was discharged mental health unit but discharged on hold due to developing of hypoxic respiratory failure requiring BiPAP. Today patient remains confused. Per nursing staff patient was noncompliant with BiPAP. Creatinine improving to 1.70. BNP 7050. We'll consult cardiology services. Abdominal x-ray completed showing possibility for underlying ileus or enteritis , follow-up as indicated dissection is suspected clinically. Additional findings above. Dr. Nova has been consulted for GI services Chest x-ray completed showing interstitial edema situated by low lung volumes, right midlung atelectasis and small left pleural effusion with left basilar atelectasis. Suspicion for cardiogenic fluid overload however superimposed left perihilar pneumonia remains possible. Follow-up to resolution. Cardiology and pulmonary service is consulted Increased confusion. Psychiatry following Acute kidney injury. Nephrology following On 12/01/2018 patient is currently resting in bed. Patient at this time is complaining of some nausea. Dr. Nova is following for surgical services. Patient did report a large bowel movement yesterday. Cardiology services have been consulted. Nephrology services also following. Increased creatinine level. At this time patient denies chest pain or shortness breath. Patient denies nausea vomiting or diarrhea. Patient denies any urinary burning or frequency On 12/02/2018 patient is currently resting in bed. Per nursing staff patient is refusing to wear BiPAP. This time patient denies chest pain or shortness of breath. Patient denies nausea vomiting or diarrhea. Patient denies any urinary burning or frequency. Creatinine improving to 1.85. Patient was hypoglycemic this a.m. with a blood sugar 40. On 12/03/2017 patient is currently sitting up in chair. At this time patient is complaining of abdominal pain. CT of abdomen completed showing bilateral pleural effusions that could relate to congestive heart failure. Subcutaneous edema also consistent with congestive heart failure. Atheromatous aorta. Extensive colonic diverticulosis without diverticulitis. Gallstones. Dr. Nova for surgical services is following. Along with cardiology and pulmonary services. This time patient states improvement with shortness of breath. Patient denies chest pain. Patient denies any urinary burning or frequency On 12/04/2017 patient is currently resting in bed. Patient does state some improvement with abdominal pain. Patient was seen by surgical services. At this time patient states he is slight improvement with shortness of breath. Patient denies chest pain. Patient denies any urinary burning or frequency. On 12/05/2017 patient is currently resting in bed. Patient denies any abdominal pain at this time. Patient is having normal bowel movements. At this time patient denies shortness of breath or chest pain. Patient denies nausea vomiting or diarrhea. Patient denies any urinary burning or frequency. Patient was evaluated by urology services. Again I discussed with patient's nurse the patient needs to be in suicide precautions until cleared and documented by psychiatry. Nurse verbalized understanding. Psychiatry to assess patient for DC plan. And patient mental health unit versus [facility] [place]. On 12/06/2017 patient is currently resting in bed. Had family meeting in regards to plan of care. Updated on consulting provider recommendations. Patient's family requesting that patient stay in hospital for an additional day. Patient remains on nasal cannula 4 L. Patient was evaluated by pulmonary services. Patient also still having occasional upset stomach. Patient was seen and cleared by surgical services. At this time patient denies chest pain. Patient denies nausea vomiting or diarrhea. Patient denies any urinary burning or frequency. Norvasc has been added for adequate blood pressure control. On 12/07/2017 patient was seen and examined on the medical floor he is alert and oriented 3 in no apparent distress Patient's family requesting that patient stay in hospital for an additional day. Patient remains on nasal cannula 4 L. Patient was evaluated by pulmonary services. Patient also still having occasional upset stomach. Patient was seen and cleared by surgical services. At this time patient denies chest pain. Patient denies nausea vomiting or diarrhea. Patient denies any urinary burning or frequency. Norvasc has been added for adequate blood pressure control. On 12/08/2017 patient is alert and oriented 3 in no apparent distress there is no fever or chills no headache or dizziness no chest pain no shortness of breath no cough no nausea or vomiting no abdominal pain no diarrhea and no urinary symptoms Objective - Vital Signs Vital signs: Vital Signs Temp 97.6 F 12/08/18 12:07 Pulse 61 12/08/18 12:07 Resp 18 12/08/18 12:07 BP 150/69 12/08/18 12:07 Pulse Ox 93 L 12/08/18 12:07 Intake & Output 12/07/18 12/08/18 12/08/18 18:59 06:59 18:59 Intake Total 320 1360 Output Total 600 800 Balance -280 560 Intake: Oral 320 1360 Output: Urine 600 800 Other: Voiding Method Diaper Diaper Incontinent Incontinent # Voids 1 # Bowel Movements 1 1 - Exam Head normocephalic and atraumatic Neck supple no JVD no goiter Lungs diminished bilaterally Heart regular rate and rhythm S1-S2, no rub or gallop Abdomen is soft nontender nondistended positive bowel sounds no hepatosplenomegaly Extremities no edema no cyanosis or clubbing - Labs CBC & Chem 7: 12/08/18 06:46 12/08/18 06:46 Labs: Abnormal Lab Results - Last 24 Hours (Table) 12/07/18 12/07/18 12/08/18 Range/Units 17:12 20:24 06:46 RBC 2.94 L (4.30-5.90) m/uL Hgb 9.3 L (13.0-17.5) gm/dL Hct 30.4 L (39.0-53.0) % MCV 103.5 H (80.0-100.0) fL MCHC 30.6 L (31.0-37.0) g/dL Chloride (98-107) mmol/L BUN (9-20) mg/dL Creatinine (0.66-1.25) mg/dL Glucose (74-99) mg/dL POC Glucose (mg/dL) 315 H 364 H (75-99) mg/dL Total Protein (6.3-8.2) g/dL Albumin (3.5-5.0) g/dL 12/08/18 12/08/18 12/08/18 Range/Units 06:46 07:04 11:16 RBC (4.30-5.90) m/uL Hgb (13.0-17.5) gm/dL Hct (39.0-53.0) % MCV (80.0-100.0) fL MCHC (31.0-37.0) g/dL Chloride 109 H (98-107) mmol/L BUN 54 H (9-20) mg/dL Creatinine 1.88 H (0.66-1.25) mg/dL Glucose 52 L (74-99) mg/dL POC Glucose (mg/dL) 64 L 163 H (75-99) mg/dL Total Protein 5.0 L (6.3-8.2) g/dL Albumin 2.7 L (3.5-5.0) g/dL Assessment and Plan Plan: 1.Acute hypoxic respiratory failure multifactorial, possibly acute on chronic CHF-diastolic dysfunction, possibly healthcare associated pneumonia left lower lobe, anxiety. Chest x-ray completed showing interstitial edema accentuated by low lung volumes, right midlung atelectasis, and small left pleural effusion with left basilar atelectasis. Suspicion for cardiogenic fluid overload however superimposed left perihilar pneumonia remains possible. Follow-up to resolution. Dr. Marin for pulmonary care. Dr. Bella consulted for cardiology services. Patient currently maintained on Zosyn. Elevated d-dimer. VQ scan completed showing stable posterior perfusion defect right lower lobe, elevated right hemidiaphragm. Cardiology following. Lasix currently on hold due to prerenal insufficiency. Patient remains on prednisone 40. Per pulmonary patient remains stable from pulmonary perspective, antibiotics can be DC'd. Patient to be DC'd on prednisone taper 2. major depressive disorder. Patient was reevaluated by psychiatry on 2017. Patient not currently suicidal or homicidal. Per psychiatry patient when medically stable pain moving to physical rehab 3. Recent stroke with some mild residual weakness in the right hand. 4. Paroximal Atrial fibrillation,currently sinus rhythm. maintained on eliquis 5. acute on Chronic kidney disease stage 4. Creatinine increasing to 2.03. Nephrology services have been reconsulted. Creatinine improving to 1.86. Patient was given Lasix 40 mg IV once today. Patient has been cleared by nephrology services for discharge 6.Type 2 diabetes mellitus 7. History of thyroid cancer,hypothyroid 8. Essential hypertension. Cardiology services have increased atenolol for adequate blood pressure control. Norvasc has also been added 9. gastric esophageal reflux disease 10. anxiety and depression. Evaluated by psychiatry, diagnosed with major depressive disorder with psychotic features. 11. Abdominal pain with Possible ileus. Abdominal x-ray completed showing possibly for Ileus or enteris. Follow-up as indicated if obstruction is suspected clinically. Per surgical solution services ileus appears to be resolving with bowel function evident. CT of abdomen and pelvis completed without contrast. Type showing bilateral pleural effusions that could relate to congestive heart failure. Subcutaneous edema also consistent with congestive heart failure. Athermatous Aorta. Extensive, chronic diverticulosis without diverticulitis. Gallstones. Per surgical services CT of abdomen and pelvis did not show any significant acute findings with bowel. Per surgical services of systemic could be influenced by high level of anxiety. Bentyl for abdominal discomfort has been added 12. Hypoglycemia. Blood sugar 40. Will discontinue aspart 5 units with meals. Continue sliding scale insulin and long-acting insulin coverage. Long- acting insulin has been decreased to 15 units subcu nightly. Blood sugars have improved. Patient to be DC'd on 15 units subcu nightly along with sliding scale coverage. 13. previous suicidal ideation. Patient was reevaluated by psychiatry on 2017. Patient not currently suicidal or homicidal. Per psychiatry patient when medically stable pain moving to physical rehab 14. Urinary retention. Ultrasound of kidneys renal and bladder completed showing left renal cyst appears simple. Per urology Proscar has been added. Patient will continue to be assessed with post void residuals. 15. Ischemic cardiomyopathy patient was seen and evaluated by cardiology services. Occasions adjusted for adequate blood pressure 16. Iron deficiency anemia. Ferrous sulfate has been added DVT prophylaxis eliquis, GI prophylaxis Protonix. Discharge planning to return to [facility] on Sunday
[2018-12-08 17:08] LABS: Glucose,Whole Blood 302 mg/dL (75-99)
[2018-12-08 19:45] LABS: Glucose,Whole Blood 313 mg/dL (75-99)
[2018-12-08] MEDS: HYDROmorphone 2 MG TAB PO PRN (20:12)
[2018-12-08] MEDS: ATORVASTATIN 20 MG TAB PO SCH (20:13)
[2018-12-08] MEDS: TAMSULOSIN 0.4 MG CAP.ER.24H PO SCH (20:13)
[2018-12-08] MEDS: INSULIN DETEMIR 100 UNIT/ML 10 ML VIAL SQ SCH (21:29)
[2018-12-09] MEDS: LORazepam 0.5 MG TAB PO SCH ×2 (00:07→07:50)
[2018-12-09] MEDS: ACETAMINOPHEN TAB 325 MG TAB PO SCH ×4 (03:36→12:46)
[2018-12-09 05:42] VITALS: RESP 16
[2018-12-09] MEDS: LEVOTHYROXINE 88 MCG TAB PO SCH (06:02)
[2018-12-09 07:03] LABS: Glucose,Whole Blood 80 mg/dL (75-99)
[2018-12-09] MEDS: LACTULOSE 20 GM/30 ML CUP PO SCH (07:49)
[2018-12-09] MEDS: INSULIN ASPART 100 UNIT/ML 1 ML 10 ML VIAL SQ SCH ×2 (07:49→12:46)
[2018-12-09] MEDS: amLODIPine 5 MG TAB PO SCH (07:50)
[2018-12-09] MEDS: APIXABAN 2.5 MG TABLET PO SCH (07:50)
[2018-12-09] MEDS: PANTOPRAZOLE 40 MG TABLET PO SCH (07:50)
[2018-12-09] MEDS: ASPIRIN 81 MG PO SCH (07:50)
[2018-12-09] MEDS: CITALOPRAM HYDROBROMIDE 20 MG TAB PO SCH (07:51)
[2018-12-09] MEDS: ATENOLOL 50 MG TAB PO SCH (07:51)
[2018-12-09] MEDS: CYANOCOBALAMIN 500 MCG TAB PO SCH (07:51)
[2018-12-09] MEDS: buPROPion 75 MG TAB PO SCH (07:51)
[2018-12-09] MEDS: DOCUSATE 100 MG CAP PO SCH (07:52)
[2018-12-09] MEDS: FERROUS SULFATE 325 MG TAB PO SCH (07:52)
[2018-12-09] MEDS: FINASTERIDE 5 MG TAB PO SCH (07:52)
[2018-12-09] MEDS: DICYCLOMINE 10 MG CAP PO SCH ×2 (07:52→12:46)
[2018-12-09] MEDS: OXYBUTYNIN CHLORIDE 5 MG TAB PO SCH (07:53)
[2018-12-09] MEDS: FLUTICASONE 50MCG/SPRAY NASAL 16GM EA NOSTRIL SCH (07:53)
[2018-12-09] MEDS: hydrALAZINE HCL 50 MG TAB PO SCH (07:53)
[2018-12-09] MEDS: predniSONE 20 MG TAB PO SCH (07:53)
[2018-12-09 07:54] LABS: Basophils % (A) 0 %; Eosinophils # (A) 0.1 k/uL (0-0.7); Eosinophils % (A) 1 %; HCT 30.1 % (39.0-53.0); Hypochromasia Marked; Lymphocytes # (A) 1.4 k/uL (1.0-4.8); Lymphocytes % (A) 15 %; MCH 31.4 pg (25.0-35.0); MCHC 29.7 g/dL (31.0-37.0); MCV 105.8 fL (80.0-100.0); Macrocytosis Moderate; Mean Platelet Volume 7.7; Monocytes # (A) 0.6 k/uL (0-1.0); Monocytes % (A) 7 %; Neutrophils # (A) 6.6 k/uL (1.3-7.7); Neutrophils % (A) 75 %; Platelet Count 226 k/uL (150-450); RBC 2.85 m/uL (4.30-5.90); RDW 15.1 % (11.5-15.5); WBC 8.9 k/uL (3.8-10.6)
[2018-12-09] MEDS: risperiDONE 1 MG TAB PO SCH (07:54)
[2018-12-09 08:09] LABS: Albumin 2.6 g/dL (3.5-5.0); Calcium 8.7 mg/dL (8.4-10.2); Total Bilirubin 0.4 mg/dL (0.2-1.3); Total Protein 4.8 g/dL (6.3-8.2)
[2018-12-09] MEDS: IPRATROPIUM-ALBUTEROL 3 ML NEB INHALATION SCH ×2 (08:37→13:02)
--- NOTE | 2018-12-09 10:15 | P.PN ---
Subjective Patient is seen in follow-up for acute kidney injury on chronic any disease. 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 Creatinine was near 1.4 in October 2018. It has been staying in the range of 1.7-2 recently. Patient admits to good urine output. No vomiting or diarrhea. No significant cough. Hemodynamically stable. Vital signs are stable. General: The patient appeared well nourished and normally developed. HEENT: Head exam is unremarkable. Neck is without jugular venous distension. LUNGS: Lungs are clear to auscultation and percussion. Breath sounds decreased. HEART: Rate and Rhythm are regular. First and second heart sounds normal. No murmurs, rubs or gallops. ABDOMEN: Abdominal exam reveals normal bowel sounds. Non-tender and non- distended. No evidence of peritonitis. EXTREMITITES: Trace edema. Objective - Vital Signs Vital signs: Vital Signs Temp 97.4 F L 12/09/18 05:00 Pulse 56 L 12/09/18 08:51 Resp 16 12/09/18 05:00 BP 159/69 12/09/18 05:00 Pulse Ox 94 L 12/09/18 05:00 Intake & Output 12/08/18 12/09/18 12/09/18 18:59 06:59 18:59 Intake Total 240 Balance 240 Intake: Oral 240 Other: Voiding Method Diaper Diaper Urinal Incontinent Incontinent Diaper Incontinent - Labs CBC & Chem 7: 12/09/18 06:39 12/09/18 06:39 Labs: Abnormal Lab Results - Last 24 Hours (Table) 12/08/18 12/08/18 12/08/18 Range/Units 11:16 17:06 19:44 RBC (4.30-5.90) m/uL Hgb (13.0-17.5) gm/dL Hct (39.0-53.0) % MCV (80.0-100.0) fL MCHC (31.0-37.0) g/dL Carbon Dioxide (22-30) mmol/L BUN (9-20) mg/dL Creatinine (0.66-1.25) mg/dL POC Glucose (mg/dL) 163 H 302 H 313 H (75-99) mg/dL Total Protein (6.3-8.2) g/dL Albumin (3.5-5.0) g/dL 12/09/18 12/09/18 Range/Units 06:39 06:39 RBC 2.85 L (4.30-5.90) m/uL Hgb 9.0 L (13.0-17.5) gm/dL Hct 30.1 L (39.0-53.0) % MCV 105.8 H (80.0-100.0) fL MCHC 29.7 L (31.0-37.0) g/dL Carbon Dioxide 32 H (22-30) mmol/L BUN 52 H (9-20) mg/dL Creatinine 1.98 H (0.66-1.25) mg/dL POC Glucose (mg/dL) (75-99) mg/dL Total Protein 4.8 L (6.3-8.2) g/dL Albumin 2.6 L (3.5-5.0) g/dL Assessment and Plan Plan: Assessment: 1. Chronic kidney disease stage IIIB/4 secondary to diabetic kidney disease with baseline creatinine now near 1.7-2. It was 1.4 in October 2018. 2. History of urinary retention. Currently does not have a Lamas catheter. He 's been requiring intermittent straight catheterizations. Urology following. 3. Pneumonia status post antibiotics. 4. BPH maintained on Flomax. 5. Diabetes mellitus. 6. Benign hypertension. Labile. Most recent blood pressure 133/63. 7. Lower extremity edema. Better post iv lasix. Plan: Maintain current antihypertensives. Encourage oral intake. Avoid nephrotoxins. Maintain Flomax. Potential discharge today to [facility]CF. Follow up outpatient in the next 2 weeks.
[2018-12-09 10:32] VITALS: BMI 33.5
[2018-12-09 12:08] LABS: Glucose,Whole Blood 235 mg/dL (75-99)
--- NOTE | 2018-12-09 12:09 | P.DS ---
Providers Date of admission: 11/27/18 02:18 Expected date of discharge: 12/09/18 Attending physician: Jasmyne Pizano Consults: 11/27/18 13:55 Consult Physician Urgent Consulting Provider: Sabrina Sauer Consult Reason/Comments: kidney injury Do you want consulting provider notified?: Yes 11/29/18 14:32 Consult Physician Routine Consulting Provider: Tien Marin Consult Reason/Comments: hypoxia Do you want consulting provider notified?: Yes 11/29/18 14:58 Consult Physician Routine Consulting Provider: Ja Nova Consult Reason/Comments: poss Ileus Do you want consulting provider notified?: Yes 12/01/18 10:06 Consult Physician Routine Consulting Provider: Bishnu Thomason Consult Reason/Comments: CHF Do you want consulting provider notified?: Yes 12/02/18 19:04 Consult Physician Routine Consulting Provider: Rashad Aceves Consult Reason/Comments: Abdominal Pain Do you want consulting provider notified?: Yes 12/04/18 11:52 Consult Physician Routine Consulting Provider: Emre Espana Consult Reason/Comments: reevaluation for suicide Do you want consulting provider notified?: Yes 12/04/18 13:34 Consult Physician Routine Consulting Provider: Carlos Molina Consult Reason/Comments: urinary retention Do you want consulting provider notified?: Yes Primary care physician: Phoenix Parker Hospital Course: Discharge diagnosis 1.Acute hypoxic respiratory failure multifactorial, possibly acute on chronic CHF-diastolic dysfunction, possibly healthcare associated pneumonia left lower lobe, anxiety. Chest x-ray completed showing interstitial edema accentuated by low lung volumes, right midlung atelectasis, and small left pleural effusion with left basilar atelectasis. Suspicion for cardiogenic fluid overload however superimposed left perihilar pneumonia remains possible. Follow-up to resolution. Dr. Marin for pulmonary care. Dr. Bella consulted for cardiology services. Patient currently maintained on Zosyn. Elevated d-dimer. VQ scan completed showing stable posterior perfusion defect right lower lobe, elevated right hemidiaphragm. Cardiology following. Continue present taper at discharge 2. major depressive disorder. Patient was reevaluated by psychiatry on 2017. Patient not currently suicidal or homicidal. Per psychiatry patient when medically stable pain moving to physical rehab 3. Recent stroke with some mild residual weakness in the right hand. 4. Paroximal Atrial fibrillation,currently sinus rhythm. maintained on eliquis 5. acute on Chronic kidney disease stage 4. 6.Type 2 diabetes mellitus 7. History of thyroid cancer,hypothyroid 8. Essential hypertension. Cardiology services have increased atenolol for adequate blood pressure control. Norvasc has also been added 9. gastric esophageal reflux disease 10. anxiety and depression. Evaluated by psychiatry, diagnosed with major depressive disorder with psychotic features. 11. Abdominal pain with Possible ileus. Abdominal x-ray completed showing possibly for Ileus or enteris. Follow-up as indicated if obstruction is suspected clinically. Per surgical solution services ileus appears to be resolving with bowel function evident. CT of abdomen and pelvis completed without contrast. Type showing bilateral pleural effusions that could relate to congestive heart failure. Subcutaneous edema also consistent with congestive heart failure. Athermatous Aorta. Extensive, chronic diverticulosis without diverticulitis. Gallstones. Per surgical services CT of abdomen and pelvis did not show any significant acute findings with bowel. Per surgical services of systemic could be influenced by high level of anxiety. Bentyl for abdominal discomfort has been added 12. Hypoglycemia. Blood sugar 40. Will discontinue aspart 5 units with meals. Continue sliding scale insulin and long-acting insulin coverage. Long- acting insulin has been decreased to 15 units subcu nightly. Blood sugars have improved. Patient to be DC'd on 15 units subcu nightly along with sliding scale coverage. 13. previous suicidal ideation. Patient was reevaluated by psychiatry on 2017. Patient not currently suicidal or homicidal. Per psychiatry patient when medically stable pain moving to physical rehab 14. Urinary retention. Ultrasound of kidneys renal and bladder completed showing left renal cyst appears simple. Per urology Proscar has been added. 15. Ischemic cardiomyopathy patient was seen and evaluated by cardiology services. Occasions adjusted for adequate blood pressure 16. Iron deficiency anemia. Ferrous sulfate has been added Hospital course Interval history: this is a 83-year-old recently discharged to intermediate came back with symptoms shortness of breath. Patient appears to be mostly anxiety and patient when questioned clearly he is quite a bit anxious and he is quite a bit claustrophobic which was his main concern. Patient also has minimal cough with white to yellowish sputum production chest x-ray was read as left lower lobe pneumonia because of which patient was admitted for healthcare associated pneumonia patient was given Zosyn and levofloxacin. Patient doesn't have any fevers does have mild leukocytosis clinically doesn't appear to have pneumonia although Zosyn will be continued levofloxacin will be discontinued patient was believed to have heart failure as well although patient has some peripheral edema mild pitting patient doesn't have any other signs of CHF patient doesn't have any JVD no crackles on exam. I do not believe patient is in CHF exacerbation patient that creatinine is 1.9 baseline appears to be around 2.1 during his last hospitalization. Patient is probably more anxious rather than having pneumonia CHF ,cannot completely rule out pneumonia, therefore we'll continue antibiotics. IV diuretics discontinued with further diuretics as per nephrology. evaluated by psychiatry with inpatient mental health unit recommended,given his suicidal thoughts over the last week,daily hallucinations. On 11/30/2018 patient is now admitted to Dr. Pizano. On 11/29/2018 patient was discharged mental health unit but discharged on hold due to developing of hypoxic respiratory failure requiring BiPAP. Today patient remains confused. Per nursing staff patient was noncompliant with BiPAP. Creatinine improving to 1.70. BNP 7050. We'll consult cardiology services. Abdominal x-ray completed showing possibility for underlying ileus or enteritis , follow-up as indicated dissection is suspected clinically. Additional findings above. Dr. Nova has been consulted for GI services Chest x-ray completed showing interstitial edema situated by low lung volumes, right midlung atelectasis and small left pleural effusion with left basilar atelectasis. Suspicion for cardiogenic fluid overload however superimposed left perihilar pneumonia remains possible. Follow-up to resolution. Cardiology and pulmonary service is consulted Increased confusion. Psychiatry following Acute kidney injury. Nephrology following On 12/01/2018 patient is currently resting in bed. Patient at this time is complaining of some nausea. Dr. Nova is following for surgical services. Patient did report a large bowel movement yesterday. Cardiology services have been consulted. Nephrology services also following. Increased creatinine level. At this time patient denies chest pain or shortness breath. Patient denies nausea vomiting or diarrhea. Patient denies any urinary burning or frequency On 12/02/2018 patient is currently resting in bed. Per nursing staff patient is refusing to wear BiPAP. This time patient denies chest pain or shortness of breath. Patient denies nausea vomiting or diarrhea. Patient denies any urinary burning or frequency. Creatinine improving to 1.85. Patient was hypoglycemic this a.m. with a blood sugar 40. On 12/03/2017 patient is currently sitting up in chair. At this time patient is complaining of abdominal pain. CT of abdomen completed showing bilateral pleural effusions that could relate to congestive heart failure. Subcutaneous edema also consistent with congestive heart failure. Atheromatous aorta. Extensive colonic diverticulosis without diverticulitis. Gallstones. Dr. Nova for surgical services is following. Along with cardiology and pulmonary services. This time patient states improvement with shortness of breath. Patient denies chest pain. Patient denies any urinary burning or frequency On 12/04/2017 patient is currently resting in bed. Patient does state some improvement with abdominal pain. Patient was seen by surgical services. At this time patient states he is slight improvement with shortness of breath. Patient denies chest pain. Patient denies any urinary burning or frequency. On 12/05/2017 patient is currently resting in bed. Patient denies any abdominal pain at this time. Patient is having normal bowel movements. At this time patient denies shortness of breath or chest pain. Patient denies nausea vomiting or diarrhea. Patient denies any urinary burning or frequency. Patient was evaluated by urology services. Again I discussed with patient's nurse the patient needs to be in suicide precautions until cleared and documented by psychiatry. Nurse verbalized understanding. Psychiatry to assess patient for DC plan. And patient mental health unit versus [facility]. On 12/06/2017 patient is currently resting in bed. Had family meeting in regards to plan of care. Updated on consulting provider recommendations. Patient's family requesting that patient stay in hospital for an additional day. Patient remains on nasal cannula 4 L. Patient was evaluated by pulmonary services. Patient also still having occasional upset stomach. Patient was seen and cleared by surgical services. At this time patient denies chest pain. Patient denies nausea vomiting or diarrhea. Patient denies any urinary burning or frequency. Norvasc has been added for adequate blood pressure control. On 12/07/2017 patient was seen and examined on the medical floor he is alert and oriented 3 in no apparent distress Patient's family requesting that patient stay in hospital for an additional day. Patient remains on nasal cannula 4 L. Patient was evaluated by pulmonary services. Patient also still having occasional upset stomach. Patient was seen and cleared by surgical services. At this time patient denies chest pain. Patient denies nausea vomiting or diarrhea. Patient denies any urinary burning or frequency. Norvasc has been added for adequate blood pressure control. On 12/08/2017 patient is alert and oriented 3 in no apparent distress there is no fever or chills no headache or dizziness no chest pain no shortness of breath no cough no nausea or vomiting no abdominal pain no diarrhea and no urinary symptoms 12/09/2018 patient is showing improvement. He has been cleared by all consulting physicians for discharge. He'll be discharged to [facility] today. He has no new complaints. He is still requiring about 4-5 L of oxygen. And will continue that at the rehab facility. Hemoglobin at discharge is 9. He'll continue with his iron pills and recommend checking a CBC in 3 days. Creatinine at discharge is 1.98. And will follow up with nephrology in the outpatient setting and recommend checking BMP in 3 days. Lasix discontinued during this admission. Patient is medical stable for discharge. Please refer to chart for any further details. I performed an examination of the patient and discussed their management with the physician Payable Manager. I have reviewed the Physician Payable Manager's notes and agree with the documented findings and plan of care Patient Condition at Discharge: Stable Plan - Discharge Summary Discharge Rx Participant: No New Discharge Prescriptions: New INSULIN LISPRO (HumaLOG) [humaLOG] 0 unit SQ ACHS #1 vial Ipratropium/Albuterol Sulfate [Combivent Respimat Inhaler] 2 puff INHALATION QID #1 inhaler amLODIPine [Norvasc] 5 mg PO DAILY tab Atenolol [Tenormin] 50 mg PO DAILY #0 tab Dicyclomine [Bentyl] 10 mg PO QID cap Ferrous Sulfate [Iron (65 MG Elemental)] 325 mg PO BID tab Finasteride [Proscar] 5 mg PO DAILY tab hydrALAZINE HCL [Apresoline] 50 mg PO TID tab Insulin Detemir [Levemir] 15 unit SQ HS syr Lactulose [Cephulac] 15 gm PO TID PRN ml PRN Reason: Constipation predniSONE 10 mg PO DIRECTED #30 tab Oxybutynin Chloride [Ditropan] 2.5 mg PO BID #0 tab Continue Citalopram Hydrobromide [Citalopram HBr] 40 mg PO DAILY Simvastatin [Zocor] 40 mg PO HS Omeprazole [PriLOSEC] 20 mg PO BID Levothyroxine Sodium [Synthroid] 88 mcg PO DAILY Restaisi(Dose Unknown) 1 drop BOTH EYES BID Multivitamins, Thera [Multivitamin (formulary)] 1 each PO DAILY Tamsulosin HCl [Flomax] 0.4 mg PO HS Cyanocobalamin [Vitamin B-12] 500 mcg PO DAILY Vit C/E/Zn/Coppr/Lutein/Zeaxan [Preservision Areds 2 Softgel] 1 cap PO BID Apixaban [Eliquis] 2.5 mg PO BID tablet Aspirin 81 mg PO DAILY chew Docusate [Colace] 100 mg PO BID cap Insulin Aspart [NovoLOG (formulary)] 5 unit SQ AC-TID vial Lactulose [Cephulac] 15 gm PO TID PRN ml PRN Reason: Constipation risperiDONE [RisperDAL] 1 mg PO BID 3 Days #6 tab Mag Hydrox/Al Hydrox/Simeth [Maalox] 30 ml PO Q4H Bismuth Subsalicylate [Kaopectate] 262 mg PO Q4H Insulin Aspart [NovoLOG] See Protocol SQ DIRECTED buPROPion [Wellbutrin] 150 mg PO DAILY Melatonin 3 mg PO HS Loratadine [Claritin] 10 mg PO DAILY Fluticasone Nasal [place] [Flonase Nasal [place]] 2 spray EA NOSTRIL DAILY Acetaminophen [Tylenol] 650 mg PO Q4H Changed LORazepam [Ativan] 1 mg PO TID #9 tab Discontinued Atenolol [Tenormin] 25 mg PO DAILY amLODIPine [Norvasc] 10 mg PO DAILY tab hydrALAZINE HCL [Apresoline] 100 mg PO TID tab Furosemide [Lasix] 40 mg PO DAILY Insulin Detemir [Levemir] 20 unit SQ HS Furosemide [Lasix] 40 mg PO DAILY Discharge Medication List Citalopram Hydrobromide [Citalopram HBr] 40 mg PO DAILY 09/29/14 [History] Levothyroxine Sodium [Synthroid] 88 mcg PO DAILY 09/29/14 [History] Multivitamins, Thera [Multivitamin (formulary)] 1 each PO DAILY 09/29/14 [ History] Omeprazole [PriLOSEC] 20 mg PO BID 09/29/14 [History] Restaisi(Dose Unknown) 1 drop BOTH EYES BID 09/29/14 [History] Simvastatin [Zocor] 40 mg PO HS 09/29/14 [History] Cyanocobalamin [Vitamin B-12] 500 mcg PO DAILY 11/07/18 [History] Tamsulosin HCl [Flomax] 0.4 mg PO HS 11/07/18 [History] Vit C/E/Zn/Coppr/Lutein/Zeaxan [Preservision Areds 2 Softgel] 1 cap PO BID 11/07 [History] Apixaban [Eliquis] 2.5 mg PO BID tablet 11/18/18 [Rx] Aspirin 81 mg PO DAILY chew 11/18/18 [Rx] Docusate [Colace] 100 mg PO BID cap 11/18/18 [Rx] Insulin Aspart [NovoLOG (formulary)] 5 unit SQ AC-TID vial 11/18/18 [Rx] Lactulose [Cephulac] 15 gm PO TID PRN ml 11/18/18 [Rx] risperiDONE [RisperDAL] 1 mg PO BID 3 Days #6 tab 11/18/18 [Rx] Acetaminophen [Tylenol] 650 mg PO Q4H 11/26/18 [History] Bismuth Subsalicylate [Kaopectate] 262 mg PO Q4H 11/26/18 [History] Fluticasone Nasal [place] [Flonase Nasal [place]] 2 spray EA NOSTRIL DAILY 11/26/18 [History] Insulin Aspart [NovoLOG] See Protocol SQ DIRECTED 11/26/18 [History] Loratadine [Claritin] 10 mg PO DAILY 11/26/18 [History] Mag Hydrox/Al Hydrox/Simeth [Maalox] 30 ml PO Q4H 11/26/18 [History] Melatonin 3 mg PO HS 11/26/18 [History] buPROPion [Wellbutrin] 150 mg PO DAILY 11/26/18 [History] INSULIN LISPRO (HumaLOG) [humaLOG] 0 unit SQ ACHS #1 vial 11/28/18 [Rx] Ipratropium/Albuterol Sulfate [Combivent Respimat Inhaler] 2 puff INHALATION QID #1 inhaler 11/28/18 [Rx] Atenolol [Tenormin] 50 mg PO DAILY #0 tab 12/06/18 [Rx] Dicyclomine [Bentyl] 10 mg PO QID cap 12/06/18 [Rx] Ferrous Sulfate [Iron (65 MG Elemental)] 325 mg PO BID tab 12/06/18 [Rx] Finasteride [Proscar] 5 mg PO DAILY tab 12/06/18 [Rx] Insulin Detemir [Levemir] 15 unit SQ HS syr 12/06/18 [Rx] LORazepam [Ativan] 1 mg PO TID #9 tab 12/06/18 [Rx] Lactulose [Cephulac] 15 gm PO TID PRN ml 12/06/18 [Rx] amLODIPine [Norvasc] 5 mg PO DAILY tab 12/06/18 [Rx] hydrALAZINE HCL [Apresoline] 50 mg PO TID tab 12/06/18 [Rx] predniSONE 10 mg PO DIRECTED #30 tab 12/06/18 [Rx] Oxybutynin Chloride [Ditropan] 2.5 mg PO BID #0 tab 12/09/18 [Rx] Follow up Appointment(s)/Referral(s): Phoenix Parker MD [Primary Care Provider] - 3 Days (at sub acute rehab) Sabrnia Sauer MD [STAFF PHYSICIAN] - 3 Weeks Tien Marin DO [Doctor of Osteopathic Medicine] - 2 Weeks Juan J Soler MD [STAFF PHYSICIAN] - 1 Week Ambulatory/Diagnostic Orders: Basic Metabolic Panel [LAB.AMB] Time Frame: 3 Days, Location: None Selected Complete Blood Count w/diff [LAB.AMB] Time Frame: 3 Days, Location: None Selected Patient Instructions/Handouts: Chronic Kidney Disease (DC), Depression (DC), Pneumonia (DC) Activity/Diet/Wound Care/Special Instructions: Estella [place] Diuretics as per nephrology. CBC,bmp in am. DIet: Consist. carb Accu-Cheks before meals and at bedtime. PT/OT Discharge Disposition: TRANSFER TO PSYCH HOSP/UNIT
[2018-12-09 12:26] VITALS: BP 162/56; PULSE 60; TEMP 97.9
== END 2018-12-09 13:46 | DRG 291 ==
LOC: EC 21:52 → 4MS4W 11-27 02:18 → 3SCARD 11-29 16:50 → 3NMEDONC 12-05 18:50
PROVIDERS: ADMIT Internal Medicine; ATTEND Internal Medicine
DX: I13.0 Hypertensive heart and chronic kidney disease with heart failure and stage 1 through stage 4 chronic kidney disease, or unspecified chronic kidney disease (principal); J18.9 Pneumonia, unspecified organism; J96.01 Acute respiratory failure with hypoxia; I50.33 Acute on chronic diastolic (congestive) heart failure; J96.21 Acute and chronic respiratory failure with hypoxia; J44.0 Chronic obstructive pulmonary disease with (acute) lower respiratory infection; N18.4 Chronic kidney disease, stage 4 (severe); F32.3 Major depressive disorder, single episode, severe with psychotic features; N17.9 Acute kidney failure, unspecified; K56.7 Ileus, unspecified; F41.9 Anxiety disorder, unspecified; I25.10 Atherosclerotic heart disease of native coronary artery without angina pectoris; K21.9 Gastro-esophageal reflux disease without esophagitis; E78.5 Hyperlipidemia, unspecified; E11.22 Type 2 diabetes mellitus with diabetic chronic kidney disease; I48.0 Paroxysmal atrial fibrillation; I12.9 Hypertensive chronic kidney disease with stage 1 through stage 4 chronic kidney disease, or unspecified chronic kidney disease; G47.33 Obstructive sleep apnea (adult) (pediatric); R79.1 Abnormal coagulation profile; I25.5 Ischemic cardiomyopathy; D50.9 Iron deficiency anemia, unspecified; R33.9 Retention of urine, unspecified; E11.649 Type 2 diabetes mellitus with hypoglycemia without coma; R53.1 Weakness; Z96.1 Presence of intraocular lens; Z96.652 Presence of left artificial knee joint; Y95 Nosocomial condition; E87.5 Hyperkalemia; Z96.653 Presence of artificial knee joint, bilateral; N40.1 Benign prostatic hyperplasia with lower urinary tract symptoms; N39.41 Urge incontinence; R33.8 Other retention of urine; I70.0 Atherosclerosis of aorta; F40.240 Claustrophobia; H35.30 Unspecified macular degeneration; K57.30 Diverticulosis of large intestine without perforation or abscess without bleeding; K80.20 Calculus of gallbladder without cholecystitis without obstruction; N28.1 Cyst of kidney, acquired; Z99.89 Dependence on other enabling machines and devices; Z87.440 Personal history of urinary (tract) infections; Z87.01 Personal history of pneumonia (recurrent); Z85.850 Personal history of malignant neoplasm of thyroid; Z98.890 Other specified postprocedural states; Z91.81 History of falling; Z98.42 Cataract extraction status, left eye; Z98.41 Cataract extraction status, right eye; Z87.891 Personal history of nicotine dependence; I25.2 Old myocardial infarction; Z80.1 Family history of malignant neoplasm of trachea, bronchus and lung; Z80.0 Family history of malignant neoplasm of digestive organs; Z79.01 Long term (current) use of anticoagulants; Z79.82 Long term (current) use of aspirin; Z79.890 Hormone replacement therapy; Z79.4 Long term (current) use of insulin; Z79.51 Long term (current) use of inhaled steroids; Z79.899 Other long term (current) drug therapy; I69.398 Other sequelae of cerebral infarction; Z95.5 Presence of coronary angioplasty implant and graft; Z91.19 Patient's noncompliance with other medical treatment and regimen
CPT/HCPCS: 36415; 36600; 71045; 71046; 74019; 74176; 76770; 78580; 80048; 80053; 81001; 82550; 82553; 82728; 82805; 83036; 83540; 83550; 83735; 83880; 84484; 85025; 85379; 85610; 85730; 87324; 93005; 94640; 94660; 94760; 96365; 96366; 96372; 96375; 99285

== ENCOUNTER 2018-12-14 23:22 | Inpatient (IN) | payer MEDICARE, BC ==
--- NOTE | 2018-12-15 00:10 | ED ---
General Adult HPI - General Chief complaint: Shortness of Breath Stated complaint: Shortness of Breath Time Seen by Provider: 12/14/18 23:35 Source: patient Mode of arrival: EMS Limitations: altered mental status - History of Present Illness Initial comments: This patient is an 83-year-old man [facility] to be evaluated for change in his mentation, change in the color of the skin to the right side of his abdomen, and possibly shortness of breath. The patient when I interview him does not give any complaints. He denies having pain anywhere. He is not otherwise able to give much in way history appearing to be having some dementia versus delirium. -: days(s) - Related Data Home Medications Medication Instructions Recorded Confirmed Citalopram Hydrobromide 40 mg PO DAILY 09/29/14 11/26/18 [Citalopram HBr] Levothyroxine Sodium [Synthroid] 88 mcg PO DAILY 09/29/14 11/26/18 Multivitamins, Thera [Multivitamin 1 each PO DAILY 09/29/14 11/26/18 (formulary)] Omeprazole [PriLOSEC] 20 mg PO BID 09/29/14 11/26/18 Restaisi(Dose Unknown) 1 drop BOTH EYES BID 09/29/14 11/26/18 Simvastatin [Zocor] 40 mg PO HS 09/29/14 11/26/18 Cyanocobalamin [Vitamin B-12] 500 mcg PO DAILY 11/07/18 11/26/18 Tamsulosin HCl [Flomax] 0.4 mg PO HS 11/07/18 11/26/18 Vit C/E/Zn/Coppr/Lutein/Zeaxan 1 cap PO BID 11/07/18 11/26/18 [Preservision Areds 2 Softgel] Acetaminophen [Tylenol] 650 mg PO Q4H 11/26/18 11/26/18 Bismuth Subsalicylate [Kaopectate] 262 mg PO Q4H 11/26/18 11/26/18 Fluticasone Nasal Gary [Flonase 2 spray EA NOSTRIL DAILY 11/26/18 11/26/18 Nasal Gary] Insulin Aspart [NovoLOG] See Protocol SQ DIRECTED 11/26/18 11/26/18 Loratadine [Claritin] 10 mg PO DAILY 11/26/18 11/26/18 Mag Hydrox/Al Hydrox/Simeth 30 ml PO Q4H 11/26/18 11/26/18 [Maalox] Melatonin 3 mg PO HS 11/26/18 11/26/18 buPROPion [Wellbutrin] 150 mg PO DAILY 11/26/18 11/26/18 Previous Rx's Medication Instructions Recorded Apixaban [Eliquis] 2.5 mg PO BID tablet 11/18/18 Aspirin 81 mg PO DAILY chew 11/18/18 Docusate [Colace] 100 mg PO BID cap 11/18/18 Insulin Aspart [NovoLOG 5 unit SQ AC-TID vial 11/18/18 (formulary)] Lactulose [Cephulac] 15 gm PO TID PRN ml 11/18/18 risperiDONE [RisperDAL] 1 mg PO BID 3 Days #6 tab 11/18/18 INSULIN LISPRO (HumaLOG) [humaLOG] 0 unit SQ ACHS #1 vial 11/28/18 Ipratropium/Albuterol Sulfate 2 puff INHALATION QID #1 inhaler 11/28/18 [Combivent Respimat Inhaler] Atenolol [Tenormin] 50 mg PO DAILY #0 tab 12/06/18 Dicyclomine [Bentyl] 10 mg PO QID cap 12/06/18 Ferrous Sulfate [Iron (65 MG 325 mg PO BID tab 12/06/18 Elemental)] Finasteride [Proscar] 5 mg PO DAILY tab 12/06/18 Insulin Detemir [Levemir] 15 unit SQ HS syr 12/06/18 LORazepam [Ativan] 1 mg PO TID #9 tab 12/06/18 Lactulose [Cephulac] 15 gm PO TID PRN ml 12/06/18 amLODIPine [Norvasc] 5 mg PO DAILY tab 12/06/18 hydrALAZINE HCL [Apresoline] 50 mg PO TID tab 12/06/18 predniSONE 10 mg PO DIRECTED #30 tab 12/06/18 Oxybutynin Chloride [Ditropan] 2.5 mg PO BID #0 tab 12/09/18 Allergies Allergy/AdvReac Type Severity Reaction Status Date / Time No Known Allergies Allergy Verified 12/14/18 23:27 Review of Systems ROS Statement: Those systems with pertinent positive or pertinent negative responses have been documented in the HPI. ROS Other: All systems not noted in ROS Statement are negative. Limitations: ROS unobtainable due to patients medical condition Cardiovascular: Denies: chest pain Gastrointestinal: Denies: abdominal pain Neurological: Denies: headache Past Medical History Past Medical History: Coronary Artery Disease (CAD), Cancer, Diabetes Mellitus, GERD/Reflux, Hyperlipidemia, Hypertension, Myocardial Infarction (PA), Pneumonia , Prostate Disorder, Sleep Apnea/CPAP/BIPAP, Thyroid Disorder Additional Past Medical History / Comment(s): no CPAP used, hiatal hernia, hx thyroid cancer, macular degeneration danielle eyes Last Myocardial Infarction Date:: 1999 History of Any Multi-Drug Resistant Organisms: None Reported Past Surgical History: Heart Catheterization With Stent, Joint Replacement Additional Past Surgical History / Comment(s): left knee replacement, danielle cataracts, thyroidectomy Past Anesthesia/Blood Transfusion Reactions: No Reported Reaction Additional Past Anesthesia/Blood Transfusion Reaction / Comment(s): clausterphobia -"uses open mri" Date of Last Stent Placement:: 1999 Past Psychological History: Anxiety, Depression, Schizophrenia Smoking Status: Former smoker Past Alcohol Use History: None Reported Past Drug Use History: None Reported - Past Family History Father Family Medical History: Cancer Additional Family Medical History / Comment(s): Father had lung cancer and colorectal cancer. He smoked as a younger man. Mother Family Medical History: Cancer Additional Family Medical History / Comment(s): Mother had lung cancer. She was a lifelong smoker General Exam Limitations: altered mental status General appearance: alert, in no apparent distress Head exam: Present: atraumatic, normocephalic Eye exam: Present: normal appearance. Absent: scleral icterus, conjunctival injection Neck exam: Present: normal inspection Respiratory exam: Present: rhonchi. Absent: respiratory distress, wheezes, rales, accessory muscle use, decreased breath sounds, prolonged expiratory Cardiovascular Exam: Present: regular rate, normal rhythm, normal heart sounds. Absent: systolic murmur, diastolic murmur, rubs, gallop GI/Abdominal exam: Present: soft, other (The patient does have ecchymosis to the right side of his abdomen area). Absent: distended, tenderness, guarding, rebound, rigid Extremities exam: Present: normal capillary refill, pedal edema. Absent: calf tenderness Neurological exam: Present: altered. Absent: oriented X3 (Patient is oriented to person) Skin exam: Present: warm, dry, intact, other (Ecchymosis to right abdomen). Absent: rash Course Vital Signs 12/14/18 12/14/18 12/15/18 23:27 23:30 00:00 Temperature 98.7 F Pulse Rate 55 L 53 L 48 L Respiratory 18 17 16 Rate Blood Pressure 129/59 129/59 157/80 O2 Sat by Pulse 91 L 91 L 93 L Oximetry 12/15/18 12/15/18 12/15/18 01:00 01:30 02:17 Temperature Pulse Rate 53 L 53 L 55 L Respiratory 20 17 18 Rate Blood Pressure 136/60 159/74 160/85 O2 Sat by Pulse 94 L 93 L 92 L Oximetry 12/15/18 12/15/18 12/15/18 03:18 04:07 04:50 Temperature 97.7 F Pulse Rate 60 51 L 49 L Respiratory 18 18 16 Rate Blood Pressure 142/69 155/73 145/67 O2 Sat by Pulse 91 L 90 L 89 L Oximetry Medical Decision Making - Lab Data Result diagrams: 12/14/18 23:35 12/14/18 23:35 Lab Results 12/14/18 12/14/18 12/14/18 Range/Units 23:35 23:35 23:35 WBC 9.9 (3.8-10.6) k/uL RBC 2.72 L (4.30-5.90) m/uL Hgb 8.9 L (13.0-17.5) gm/dL Hct 28.6 L (39.0-53.0) % MCV 104.9 H (80.0-100.0) fL MCH 32.8 (25.0-35.0) pg MCHC 31.3 (31.0-37.0) g/dL RDW 15.7 H (11.5-15.5) % Plt Count 215 (150-450) k/uL Neutrophils % 80 % Lymphocytes % 12 % Monocytes % 6 % Eosinophils % 1 % Basophils % 0 % Neutrophils # 8.0 H (1.3-7.7) k/uL Lymphocytes # 1.2 (1.0-4.8) k/uL Monocytes # 0.6 (0-1.0) k/uL Eosinophils # 0.1 (0-0.7) k/uL Basophils # 0.0 (0-0.2) k/uL Hypochromasia Slight Macrocytosis Moderate PT (9.0-12.0) sec INR (<1.2) APTT (22.0-30.0) sec Sodium (137-145) mmol/L Potassium (3.5-5.1) mmol/L Chloride (98-107) mmol/L Carbon Dioxide (22-30) mmol/L Anion Gap mmol/L BUN (9-20) mg/dL Creatinine (0.66-1.25) mg/dL Est GFR (CKD-EPI)AfAm (>60 ml/min/1.73 sqM) Est GFR (CKD-EPI)NonAf (>60 ml/min/1.73 sqM) Glucose (74-99) mg/dL POC Glucose (mg/dL) (75-99) mg/dL POC Glu Modeling And Simulation Analyst ID Plasma Lactic Acid Qasim 0.7 (0.7-2.0) mmol/L Calcium (8.4-10.2) mg/dL Total Bilirubin (0.2-1.3) mg/dL AST (17-59) U/L ALT (21-72) U/L Alkaline Phosphatase (38-126) U/L Ammonia 11 (<30) umol/L Total Creatine Kinase 106 (55-170) U/L CK-MB (CK-2) 4.9 H (0.0-2.4) ng/mL CK-MB (CK-2) Rel Index 4.6 Troponin I 0.028 (0.000-0.034) ng/mL Total Protein (6.3-8.2) g/dL Albumin (3.5-5.0) g/dL Urine Color Urine Appearance (Clear) Urine pH (5.0-8.0) Ur Specific Boyers (1.001-1.035) Urine Protein (Negative) Urine Glucose (UA) (Negative) Urine Ketones (Negative) Urine Blood (Negative) Urine Nitrite (Negative) Urine Bilirubin (Negative) Urine Urobilinogen (<2.0) mg/dL Ur Leukocyte Esterase (Negative) Urine RBC (0-5) /hpf Urine WBC (0-5) /hpf Urine Mucus (None) /hpf 01/26/19 01/26/19 01/27/19 Range/Units 23:35 23:35 00:17 WBC (3.8-10.6) k/uL RBC (4.30-5.90) m/uL Hgb (13.0-17.5) gm/dL Hct (39.0-53.0) % MCV (80.0-100.0) fL MCH (25.0-35.0) pg MCHC (31.0-37.0) g/dL RDW (11.5-15.5) % Plt Count (150-450) k/uL Neutrophils % % Lymphocytes % % Monocytes % % Eosinophils % % Basophils % % Neutrophils # (1.3-7.7) k/uL Lymphocytes # (1.0-4.8) k/uL Monocytes # (0-1.0) k/uL Eosinophils # (0-0.7) k/uL Basophils # (0-0.2) k/uL Hypochromasia Macrocytosis PT 10.8 (9.0-12.0) sec INR 1.0 (<1.2) APTT 26.3 (22.0-30.0) sec Sodium 141 (137-145) mmol/L Potassium 4.0 (3.5-5.1) mmol/L Chloride 107 (98-107) mmol/L Carbon Dioxide 30 (22-30) mmol/L Anion Gap 4 mmol/L BUN 33 H (9-20) mg/dL Creatinine 1.81 H (0.66-1.25) mg/dL Est GFR (CKD-EPI)AfAm 40 (>60 ml/min/1.73 sqM) Est GFR (CKD-EPI)NonAf 34 (>60 ml/min/1.73 sqM) Glucose 87 (74-99) mg/dL POC Glucose (mg/dL) 97 (75-99) mg/dL POC Glu Modeling And Simulation Analyst ID Sofie Irizarry Plasma Lactic Acid Qasim (0.7-2.0) mmol/L Calcium 8.4 (8.4-10.2) mg/dL Total Bilirubin 0.5 (0.2-1.3) mg/dL AST 33 (17-59) U/L ALT 45 (21-72) U/L Alkaline Phosphatase 72 (38-126) U/L Ammonia (<30) umol/L Total Creatine Kinase (55-170) U/L CK-MB (CK-2) (0.0-2.4) ng/mL CK-MB (CK-2) Rel Index Troponin I (0.000-0.034) ng/mL Total Protein 5.1 L (6.3-8.2) g/dL Albumin 2.8 L (3.5-5.0) g/dL Urine Color Urine Appearance (Clear) Urine pH (5.0-8.0) Ur Specific Boyers (1.001-1.035) Urine Protein (Negative) Urine Glucose (UA) (Negative) Urine Ketones (Negative) Urine Blood (Negative) Urine Nitrite (Negative) Urine Bilirubin (Negative) Urine Urobilinogen (<2.0) mg/dL Ur Leukocyte Esterase (Negative) Urine RBC (0-5) /hpf Urine WBC (0-5) /hpf Urine Mucus (None) /hpf 12/15/18 Range/Units 00:47 WBC (3.8-10.6) k/uL RBC (4.30-5.90) m/uL Hgb (13.0-17.5) gm/dL Hct (39.0-53.0) % MCV (80.0-100.0) fL MCH (25.0-35.0) pg MCHC (31.0-37.0) g/dL RDW (11.5-15.5) % Plt Count (150-450) k/uL Neutrophils % % Lymphocytes % % Monocytes % % Eosinophils % % Basophils % % Neutrophils # (1.3-7.7) k/uL Lymphocytes # (1.0-4.8) k/uL Monocytes # (0-1.0) k/uL Eosinophils # (0-0.7) k/uL Basophils # (0-0.2) k/uL Hypochromasia Macrocytosis PT (9.0-12.0) sec INR (<1.2) APTT (22.0-30.0) sec Sodium (137-145) mmol/L Potassium (3.5-5.1) mmol/L Chloride (98-107) mmol/L Carbon Dioxide (22-30) mmol/L Anion Gap mmol/L BUN (9-20) mg/dL Creatinine (0.66-1.25) mg/dL Est GFR (CKD-EPI)AfAm (>60 ml/min/1.73 sqM) Est GFR (CKD-EPI)NonAf (>60 ml/min/1.73 sqM) Glucose (74-99) mg/dL POC Glucose (mg/dL) (75-99) mg/dL POC Glu Modeling And Simulation Analyst ID Plasma Lactic Acid Qasim (0.7-2.0) mmol/L Calcium (8.4-10.2) mg/dL Total Bilirubin (0.2-1.3) mg/dL AST (17-59) U/L ALT (21-72) U/L Alkaline Phosphatase (38-126) U/L Ammonia (<30) umol/L Total Creatine Kinase (55-170) U/L CK-MB (CK-2) (0.0-2.4) ng/mL CK-MB (CK-2) Rel Index Troponin I (0.000-0.034) ng/mL Total Protein (6.3-8.2) g/dL Albumin (3.5-5.0) g/dL Urine Color Light Yellow Urine Appearance Clear (Clear) Urine pH 5.0 (5.0-8.0) Ur Specific Boyers 1.007 (1.001-1.035) Urine Protein 1+ H (Negative) Urine Glucose (UA) Negative (Negative) Urine Ketones Negative (Negative) Urine Blood Negative (Negative) Urine Nitrite Negative (Negative) Urine Bilirubin Negative (Negative) Urine Urobilinogen <2.0 (<2.0) mg/dL Ur Leukocyte Esterase Negative (Negative) Urine RBC 19 H (0-5) /hpf Urine WBC 1 (0-5) /hpf Urine Mucus Rare H (None) /hpf Disposition Clinical Impression: Pneumonia, Altered mental status Disposition: ADMITTED IP TO THIS HOSP Condition: Poor Is patient prescribed a controlled substance at d/c from ED?: No Referrals: Phoenix Parker MD [Primary Care Provider] - 1-2 days
[2018-12-15 00:12] LABS: Basophils % (A) 0 %; Eosinophils # (A) 0.1 k/uL (0-0.7); Eosinophils % (A) 1 %; HCT 28.6 % (39.0-53.0); HGB 8.9 gm/dL (13.0-17.5); Hypochromasia Slight; Lymphocytes # (A) 1.2 k/uL (1.0-4.8); Lymphocytes % (A) 12 %; MCH 32.8 pg (25.0-35.0); MCHC 31.3 g/dL (31.0-37.0); MCV 104.9 fL (80.0-100.0); Macrocytosis Moderate; Mean Platelet Volume 6.9; Monocytes # (A) 0.6 k/uL (0-1.0); Monocytes % (A) 6 %; Neutrophils % (A) 80 %; Platelet Count 215 k/uL (150-450); RBC 2.72 m/uL (4.30-5.90); RDW 15.7 % (11.5-15.5); WBC 9.9 k/uL (3.8-10.6)
[2018-12-15 00:20] LABS: Glucose,Whole Blood 97 mg/dL (75-99)
[2018-12-15 00:20] LABS: Lactic Acid, Venous 0.7 mmol/L (0.7-2.0)
[2018-12-15 00:21] LABS: Albumin 2.8 g/dL (3.5-5.0); Calcium 8.4 mg/dL (8.4-10.2); Total Bilirubin 0.5 mg/dL (0.2-1.3); Total Protein 5.1 g/dL (6.3-8.2)
[2018-12-15 00:39] LABS: Partial Thromboplastin Time 26.3 sec (22.0-30.0); Prothrombin Time 10.8 sec (9.0-12.0)
--- NOTE | 2018-12-15 00:43 | XR ---
EXAMINATION TYPE: XR chest 1V portable DATE OF EXAM: 12/15/2018 COMPARISON: 12/03/2018 HISTORY: Altered mental status TECHNIQUE: Single frontal view of the chest is obtained. FINDINGS: There is some infiltrate and atelectasis in the right mid and lower lung field. There is b lunting of right costophrenic angle. There is no heart failure. There is coarsening of the lung luna ngs. Thoracic aorta is atheromatous. IMPRESSION: Right lower lobe infiltrate and atelectasis appears worse than old exam. No gross heart failure.
[2018-12-15 00:56] LABS: Creatine Kinase MB 4.9 ng/mL (0.0-2.4); Troponin I 0.028 ng/mL (0.000-0.034)
--- NOTE | 2018-12-15 01:00 | CT ---
EXAMINATION TYPE: CT brain wo con DATE OF EXAM: 12/15/2018 COMPARISON: 11/07/2018 HISTORY: AMS CT DLP: 1201.4 mGycm Automated exposure control for dose reduction was used. FINDINGS: Ventricles of normal size. There is patchy hypodensity in the periventricular white matter. There is no mass effect nor midline shift. There is no sign of intracranial hemorrhage. Calvarium is intact. 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 IMPRESSION: CEREBRAL ATROPHY AND CHRONIC SMALL VESSEL ISCHEMIA. NO CHANGE COMPARED TO OLD EXAM.
--- NOTE | 2018-12-15 01:05 | CT ---
EXAMINATION TYPE: CT abdomen pelvis wo con DATE OF EXAM: 12/15/2018 COMPARISON: 12/02/2018 HISTORY: abdominal pain CT DLP: 1080.4 mGycm Automated exposure control for dose reduction was used. TECHNIQUE: Helical acquisition of images was performed from the lung bases through the pelvis. FINDINGS: There are moderate bilateral pleural effusions. There is no pericardial effusion. Heart is top normal in size. There is atelectasis at the lung bases. There are probably small gallstones. Gallbladder is not dilated. Liver shows no focal defect. Spleen appears normal. Stomach appears normal. There is no pancreatic mass. There is no adrenal mass. There are cortical cysts lateral left kidney. There is exophytic 3 cm corti fantasma cyst posterior left kidney. There is no hydronephrosis. Ureters are not dilated. Abdominal aorta is atheromatous. There is no retroperitoneal adenopathy. There is oral contrast in the large bowel. T here are sigmoid diverticula without evidence of diverticulitis. There is no evidence of a bowel obst ruction. There is no sign of free air. Bladder distends smoothly. There is no inguinal hernia. There is no free fluid in the pelvis. There is no ascites. There is no mesenteric edema. Lumbar vertebra muro ve fairly normal spacing and alignment. There is spurring in the thoracic and lumbar spine. I see no compression fracture. IMPRESSION: BILATERAL PLEURAL EFFUSIONS AND BASILAR PULMONARY CONSOLIDATION AND ATELECTASIS. SUBCUTANEOUS EDEMA A ROUND THE ABDOMEN. THIS COULD RELATE TO CONGESTIVE HEART FAILURE. THERE ARE PROBABLY SMALL GALLSTONES. COLONIC DIVERTICULOSIS WITHOUT DIVERTICULITIS. NO ACUTE ABNORMAL ITY WITHIN THE ABDOMEN AND PELVIS.
[2018-12-15 02:05] LABS: Appearance,Urine Clear (Clear); Bilirubin,Urine Negative (Negative); Blood,Urine Negative (Negative); Color,Urine Light Yellow; Glucose,Urine (UA) Negative (Negative); Ketones,Urine Negative (Negative); Leukocyte Esterase,Urine Negative (Negative); Mucus,Urine Rare /hpf; Nitrite,Urine Negative (Negative); Protein,Urine 1+ (Negative); RBC,Urine 19 /hpf (0-5); Specific Gravity,Urine 1.007 (1.001-1.035); Urobilinogen,Urine <2.0 mg/dL (<2.0)
[2018-12-15] MEDS ORDERED: PIPERACILLIN-TAZOBACTAM 3.375 GM in SODIUM CHLORIDE 0.9% 100 ML IVPB STA (04:01)
[2018-12-15] MEDS ORDERED: LEVOFLOXACIN 750 MG TAB PO STA (04:01)
[2018-12-15] MEDS ORDERED: LEVOFLOXACIN 750MG-D5W PMX 750 MG in DEXTROSE/WATER 1 150ML.BAG IVPB STA (04:39)
[2018-12-15] MEDS ORDERED: PNEUMONIA PROTOCOL UTILIZED 1 EACH MISC PO PRN (06:36)
[2018-12-15] MEDS: SODIUM CHLORIDE 0.9% 1,000 ML IV SCH (06:55)
[2018-12-15] MEDS ORDERED: HEPARIN SODIUM,PORCINE 5,000 UNIT/ML 1 ML VIAL SQ SCH (09:00)
[2018-12-15 11:08] LABS: Glucose,Whole Blood 160 mg/dL (75-99)
[2018-12-15] MEDS ORDERED: LACTULOSE 20 GM/30 ML CUP PO PRN (13:06)
[2018-12-15] MEDS ORDERED: GERI LANTA PO PRN (13:06)
[2018-12-15] MEDS: INSULIN DETEMIR 100 UNIT/ML 10 ML VIAL SQ SCH (14:49)
[2018-12-15] MEDS: LORazepam 0.5 MG TAB PO SCH ×2 (14:50→15:35)
[2018-12-15] MEDS: PIPERACILLIN-TAZOBACTAM 3.375 GM in SODIUM CHLORIDE 0.9% 100 ML IVPB SCH (14:50)
[2018-12-15] MEDS: PANTOPRAZOLE 40 MG TABLET PO SCH (14:54)
[2018-12-15] MEDS: ATENOLOL 50 MG TAB PO SCH (14:54)
[2018-12-15] MEDS: ACETAMINOPHEN TAB 325 MG TAB PO PRN (15:35)
[2018-12-15] MEDS ORDERED: IPRATROPIUM-ALBUTEROL 3 ML NEB INHALATION SCH (16:00)
[2018-12-15] MEDS: hydrALAZINE HCL 50 MG TAB PO SCH ×2 (16:41→20:35)
[2018-12-15 17:16] LABS: Glucose,Whole Blood 241 mg/dL (75-99)
[2018-12-15] MEDS: INSULIN ASPART 100 UNIT/ML 1 ML 10 ML VIAL SQ SCH (17:41)
--- NOTE | 2018-12-15 18:05 | P.HPIM ---
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 Patient also having shortness of breath. No fever or chills. Patient was also having right-sided abdominal rash. No nausea vomiting. Patient does eat with one-to-one feeding. No cough or sputum production. No aspiration as per staff. CT head showed cerebral atrophy and chronic small was ischemia. No change compared to old exam. There is some white matter hypodensity in the anterior right internal capsule consistent with old olecranon infarct. CT abdomen and pelvis showed bilateral pleural effusions and basilar pulmonary consolidation and atelectasis. Subcutaneous edema around the abdomen that could be related to congestive heart failure. There is probably small gallstones. Collect diverticulosis without diverticulitis. No acute abnormality within the abdominal pelvis. This patient is an 83-year-old man [facility] be evaluated for change in his mentation, change in the color of the skin to the right side of his abdomen, and possibly shortness of breath. The patient when I interview him does not give any complaints. He denies having pain anywhere. He is not otherwise able to give much in way history appearing to be having some dementia versus delirium. Chest x-ray showed right lower lobe infiltrate and atelectasis appears to be worse than old exam. No gross heart failure. EKG showed sinus bradycardia Patient has been on oxygen since admission to extended care facility. Review of Systems Review of systems could not be obtained from the patient. Past Medical History Past Medical History: Coronary Artery Disease (CAD), Cancer, Diabetes Mellitus, GERD/Reflux, Hyperlipidemia, Hypertension, Myocardial Infarction (MT), Pneumonia , Prostate Disorder, Sleep Apnea/CPAP/BIPAP, Thyroid Disorder Additional Past Medical History / Comment(s): no CPAP used, hiatal hernia, hx thyroid cancer, macular degeneration danielle eyes Last Myocardial Infarction Date:: 1999 History of Any Multi-Drug Resistant Organisms: None Reported Past Surgical History: Heart Catheterization With Stent, Joint Replacement Additional Past Surgical History / Comment(s): left knee replacement, danielle cataracts, thyroidectomy Past Anesthesia/Blood Transfusion Reactions: No Reported Reaction Additional Past Anesthesia/Blood Transfusion Reaction / Comment(s): clausterphobia -"uses open mri" Date of Last Stent Placement:: 1999 Past Psychological History: Anxiety, Depression, Schizophrenia Additional Psychological History / Comment(s): Pt currently is staying at [facility] for rehab since 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 They are getting him up with walker and he just started using the bars. Pt also has been on oxygen since getting to rehab. He no longer drives, family can take him to app. Smoking Status: Former smoker Past Alcohol Use History: None Reported Additional Past Alcohol Use History / Comment(s): started smoking 1952 and quit 1993 Past Drug Use History: None Reported - Past Family History Father Family Medical History: Cancer Additional Family Medical History / Comment(s): Father had lung cancer and colorectal cancer. He smoked as a younger man. Mother Family Medical History: Cancer Additional Family Medical History / Comment(s): Mother had lung cancer. She was a lifelong smoker Medications and Allergies Home Medications Medication Instructions Recorded Confirmed Type Citalopram Hydrobromide 40 mg PO HS 09/29/14 12/15/18 History [Citalopram HBr] Levothyroxine Sodium [Synthroid] 88 mcg PO DAILY 09/29/14 12/15/18 History Multivitamins, Thera [Multivitamin 1 tab PO HS 09/29/14 12/15/18 History (formulary)] Omeprazole [PriLOSEC] 20 mg PO BID 09/29/14 12/15/18 History Simvastatin [Zocor] 40 mg PO HS 09/29/14 12/15/18 History Cyanocobalamin [Vitamin B-12] 500 mcg PO HS 11/07/18 12/15/18 History Tamsulosin HCl [Flomax] 0.4 mg PO HS@199911/07/18 12/15/18 History Vit C/E/Zn/Coppr/Lutein/Zeaxan 1 cap PO BID 11/07/18 12/15/18 History [Preservision Areds 2 Softgel] Apixaban [Eliquis] 2.5 mg PO BID tablet 11/18/18 12/15/18 Rx Docusate [Colace] 100 mg PO BID cap 11/18/18 12/15/18 Rx Insulin Aspart [NovoLOG 5 unit SQ AC-TID vial 11/18/18 12/15/18 Rx (formulary)] risperiDONE [RisperDAL] 1 mg PO BID 3 Days #6 tab 11/18/18 12/15/18 Rx Acetaminophen [Tylenol] 650 mg PO Q4H PRN 11/26/18 12/15/18 History Bismuth Subsalicylate [Kaopectate] 262 mg PO Q4H 11/26/18 12/15/18 History Loratadine [Claritin] 10 mg PO DAILY 11/26/18 12/15/18 History Melatonin 3 mg PO HS 11/26/18 12/15/18 History buPROPion [Wellbutrin] 150 mg PO DAILY 11/26/18 12/15/18 History Atenolol [Tenormin] 50 mg PO DAILY #0 tab 12/06/18 12/15/18 Rx Dicyclomine [Bentyl] 10 mg PO QID cap 12/06/18 12/15/18 Rx Ferrous Sulfate [Iron (65 MG 325 mg PO BID tab 12/06/18 12/15/18 Rx Elemental)] Finasteride [Proscar] 5 mg PO DAILY tab 12/06/18 12/15/18 Rx hydrALAZINE HCL [Apresoline] 50 mg PO TID tab 12/06/18 12/15/18 Rx Oxybutynin Chloride [Ditropan] 2.5 mg PO BID #0 tab 12/09/18 12/15/18 Rx Aspirin 81 mg PO HS 12/15/18 12/15/18 History Furosemide [Lasix] 20 mg PO DAILY 12/15/18 12/15/18 History Kelly-L[place] 30 ml PO Q6H PRN 12/15/18 12/15/18 History Insulin Aspart [NovoLOG See Protocol SQ ACHS 12/15/18 12/15/18 History (formulary)] Insulin Detemir [Levemir] 15 unit SQ DAILY 12/15/18 12/15/18 History Ipratropium/Albuterol Sulfate 1 puff INHALATION RT-QID 12/15/18 12/15/18 History [Combivent Respimat Inhaler] LORazepam [Ativan] 1 mg PO Q8H 12/15/18 12/15/18 History Lactulose [Cephulac] 20 gm PO TID PRN 12/15/18 12/15/18 History amLODIPine [Norvasc] 5 mg PO BID 12/15/18 12/15/18 History cycloSPORINE [Restasis] 1 drop BOTH EYES BID 12/15/18 12/15/18 History predniSONE See Taper PO DAILY 12/15/18 12/15/18 History Allergies Allergy/AdvReac Type Severity Reaction Status Date / Time No Known Allergies Allergy Verified 12/15/18 07:14 Physical Exam Vitals: Vital Signs Temp Pulse Pulse Resp BP BP Pulse Ox 12/15/18 08:20 106 H 26 H 12/15/18 08:18 97.5 F L 102 H 24 121/74 94 L 12/15/18 06:49 97.8 F 99 18 142/71 93 L 12/15/18 04:50 49 L 16 145/67 89 L 12/15/18 04:07 97.7 F 51 L 18 155/73 90 L 12/15/18 03:18 60 18 142/69 91 L 12/15/18 02:17 55 L 18 160/85 92 L 12/15/18 01:30 53 L 17 159/74 93 L 12/15/18 01:00 53 L 20 136/60 94 L 12/15/18 00:00 48 L 16 157/80 93 L 12/14/18 23:30 53 L 17 129/59 91 L 12/14/18 23:27 98.7 F 55 L 18 129/59 91 L Intake and Output 12/14/18 12/15/18 12/15/18 22:59 06:59 14:59 Intake Total 560 Balance 560 Intake: Intake, IV Titration 320 Amount Levofloxacin 750Mg-D5w 100 Pmx 750 mg In Dextrose/ Water 1 150ml.bag @ 100 mls/hr IVPB Q48H NICKIE Rx#: [id number] Piperacillin-Tazobactam 3 100 .375 gm In Sodium Chloride 0.9% 100 ml @ 25 mls/hr IVPB Q8H NICKIE Rx#: [id number] Sodium Chloride 0.9% 1, 120 000 ml @ 20 mls/hr IV . Q24H NICKIE Rx#:[id number] Oral 240 Other: Voiding Method Diaper # Voids 2 Weight 95.254 kg PHYSICAL EXAMINATION: Patient is lying in the bed comfortably, no acute distress, awake alert but not oriented.. HEENT: Normocephalic. Neck is supple. Pupils reactive. Nostrils clear. Oral cavity is moist. Ears reveal no drainage. Neck reveals no JVD, carotid bruits, or thyromegaly. CHEST EXAMINATION: Trachea is central. Symmetrical expansion. Bibasilar coarse breath sounds and crackles. Minimal expiratory wheeze.. CARDIAC: Normal S1, S2 with no gallops. No murmurs ABDOMEN: Soft. Bowel sounds normal. No organomegaly. No abdominal bruits. Extremities: reveal no edema. No clubbing or cyanosis Neurologically awake, alert. Able to move his extremities while in the bed. Skin: Patient does have right-sided abdominal petechial rash present. No hematoma or ecchymosis.. Psychiatric: Coperative. Could not be assessed completely Musculoskeletal: No joint swelling or deformity. Normal range of motion. Results CBC & Chem 7: 12/14/18 23:35 12/14/18 23:35 Labs: Abnormal Lab Results - Last 24 Hours (Table) 12/14/18 12/14/18 12/14/18 Range/Units 23:35 23:35 23:35 RBC 2.72 L (4.30-5.90) m/uL Hgb 8.9 L (13.0-17.5) gm/dL Hct 28.6 L (39.0-53.0) % MCV 104.9 H (80.0-100.0) fL RDW 15.7 H (11.5-15.5) % Neutrophils # 8.0 H (1.3-7.7) k/uL BUN 33 H (9-20) mg/dL Creatinine 1.81 H (0.66-1.25) mg/dL POC Glucose (mg/dL) (75-99) mg/dL CK-MB (CK-2) 4.9 H (0.0-2.4) ng/mL Total Protein 5.1 L (6.3-8.2) g/dL Albumin 2.8 L (3.5-5.0) g/dL Urine Protein (Negative) Urine RBC (0-5) /hpf Urine Mucus (None) /hpf 12/15/18 12/15/18 Range/Units 00:47 11:06 RBC (4.30-5.90) m/uL Hgb (13.0-17.5) gm/dL Hct (39.0-53.0) % MCV (80.0-100.0) fL RDW (11.5-15.5) % Neutrophils # (1.3-7.7) k/uL BUN (9-20) mg/dL Creatinine (0.66-1.25) mg/dL POC Glucose (mg/dL) 160 H (75-99) mg/dL CK-MB (CK-2) (0.0-2.4) ng/mL Total Protein (6.3-8.2) g/dL Albumin (3.5-5.0) g/dL Urine Protein 1+ H (Negative) Urine RBC 19 H (0-5) /hpf Urine Mucus Rare H (None) /hpf Thrombosis Risk Factor Assmnt - DVT/VTE Prophylaxis DVT/VTE Prophylaxis: Pharmacologic Prophylaxis ordered Assessment and Plan Assessment: Acute right lower lobe infiltrates/pneumonia/HCAP Bilateral small pleural effusion Right abdominal petechial rash Altered mental status possible metabolic encephalopathy Diabetes type 2 insulin-dependent Recent history of CVA/Lacunar infarct. Coronary artery disease history of stent placement Hypertension Hyperlipidemia History of MT History of thyroid cancer Obstructive sleep apnea not using CPAP Macular degeneration of bilateral ice Anxiety depression and schizophrenia Medical debility currently [facility] Previous history of smoking Patient is on anticoagulation with Apixaban. Etiology not sure. Plan: Patient will be continued on broad-spectrum antibiotics in the form of Levaquin and Zosyn. Continue with home medications and insulin dosing. Oxygen therapy and follow up closely. Currently the current management and further recommendations based on the clinical course. Prognosis is guarded with multiple medical problems and comorbid conditions. Time with Patient: Greater than 30
[2018-12-15] MEDS: IPRATROPIUM-ALBUTEROL 3 ML NEB INHALATION SCH (19:44)
[2018-12-15] MEDS: BISMUTH SUBSALICYLATE 4,192 MG/240 ML BOTTLE PO PRN (19:54)
[2018-12-15] MEDS: DICYCLOMINE 10 MG CAP PO PRN (19:54)
[2018-12-15 20:03] LABS: Glucose,Whole Blood 148 mg/dL (75-99)
[2018-12-15] MEDS: MELATONIN 3 MG TABLET PO SCH (20:33)
[2018-12-15] MEDS: HYDROcodone/APAP 5-325MG 1 EACH TAB PO PRN (20:33)
[2018-12-15] MEDS: amLODIPine 5 MG TAB PO SCH (20:33)
[2018-12-15] MEDS: APIXABAN 2.5 MG TABLET PO SCH (20:33)
[2018-12-15] MEDS: DOCUSATE 100 MG CAP PO SCH (20:34)
[2018-12-15] MEDS: TAMSULOSIN 0.4 MG CAP.ER.24H PO SCH (20:35)
[2018-12-15] MEDS: ATORVASTATIN 20 MG TAB PO SCH (20:36)
[2018-12-15] MEDS: CITALOPRAM HYDROBROMIDE 20 MG TAB PO SCH ×2 (20:36→20:37)
[2018-12-15] MEDS: CYANOCOBALAMIN 500 MCG TAB PO SCH (20:37)
[2018-12-15] MEDS: ASPIRIN 81 MG PO SCH (20:37)
[2018-12-15] MEDS: OXYBUTYNIN CHLORIDE 5 MG TAB PO SCH (20:38)
[2018-12-15] MEDS ORDERED: FERROUS SULFATE 325 MG TAB PO SCH (21:00)
[2018-12-16] MEDS: LORazepam 0.5 MG TAB PO SCH ×3 (01:00→17:24)
[2018-12-16] MEDS: MULTIVITAMINS, THERA 1 EACH TAB PO SCH ×2 (03:54→21:58)
[2018-12-16] MEDS: cycloSPORINE 0.05% OPHTH 0.4 ML DROPERETTE BOTH EYES SCH ×3 (03:55→22:07)
[2018-12-16] MEDS: VIT A,C & E-LUTEIN-MINERALS 1 EACH TAB PO SCH ×3 (03:55→21:58)
[2018-12-16] MEDS: PIPERACILLIN-TAZOBACTAM 3.375 GM in SODIUM CHLORIDE 0.9% 100 ML IVPB SCH ×4 (03:55→23:21)
[2018-12-16] MEDS: LEVOTHYROXINE 88 MCG TAB PO SCH (06:04)
[2018-12-16 07:03] LABS: Glucose,Whole Blood 142 mg/dL (75-99)
[2018-12-16 07:45] LABS: Basophils % (A) 0 %; Eosinophils # (A) 0.1 k/uL (0-0.7); Eosinophils % (A) 2 %; HGB 8.6 gm/dL (13.0-17.5); Hypochromasia Marked; Lymphocytes # (A) 0.8 k/uL (1.0-4.8); Lymphocytes % (A) 10 %; MCHC 30.8 g/dL (31.0-37.0); MCV 107.3 fL (80.0-100.0); Macrocytosis Marked; Mean Platelet Volume 7.5; Monocytes # (A) 0.4 k/uL (0-1.0); Monocytes % (A) 5 %; Neutrophils # (A) 6.2 k/uL (1.3-7.7); Neutrophils % (A) 81 %; Platelet Count 205 k/uL (150-450); RBC 2.61 m/uL (4.30-5.90); RDW 15.3 % (11.5-15.5); WBC 7.6 k/uL (3.8-10.6)
[2018-12-16 07:56] LABS: Calcium 8.1 mg/dL (8.4-10.2)
[2018-12-16] MEDS: SODIUM CHLORIDE 0.9% 1,000 ML IV SCH (08:41)
[2018-12-16] MEDS: INSULIN ASPART 100 UNIT/ML 1 ML 10 ML VIAL SQ SCH ×3 (08:42→18:05)
[2018-12-16] MEDS: OXYBUTYNIN CHLORIDE 5 MG TAB PO SCH ×2 (08:49→22:07)
[2018-12-16] MEDS: ATENOLOL 50 MG TAB PO SCH (08:50)
[2018-12-16] MEDS: DOCUSATE 100 MG CAP PO SCH ×2 (08:50→22:07)
[2018-12-16] MEDS: FINASTERIDE 5 MG TAB PO SCH (08:50)
[2018-12-16] MEDS: hydrALAZINE HCL 50 MG TAB PO SCH ×3 (08:50→22:07)
[2018-12-16] MEDS: buPROPion 75 MG TAB PO SCH (08:50)
[2018-12-16] MEDS: APIXABAN 2.5 MG TABLET PO SCH ×2 (08:50→22:07)
[2018-12-16] MEDS: PANTOPRAZOLE 40 MG TABLET PO SCH (08:51)
[2018-12-16] MEDS: LORATADINE 10 MG TAB PO SCH (08:51)
[2018-12-16] MEDS: INSULIN DETEMIR 100 UNIT/ML 10 ML VIAL SQ SCH (08:51)
[2018-12-16] MEDS: amLODIPine 5 MG TAB PO SCH ×2 (08:51→22:07)
[2018-12-16] MEDS: IPRATROPIUM-ALBUTEROL 3 ML NEB INHALATION SCH ×4 (08:58→20:45)
[2018-12-16] MEDS ORDERED: FUROSEMIDE 20 MG TAB PO SCH (09:00)
--- NOTE | 2018-12-16 10:46 | P.PN ---
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 Patient also having shortness of breath. No fever or chills. Patient was also having right-sided abdominal rash. No nausea vomiting. Patient does eat with one-to-one feeding. No cough or sputum production. No aspiration as per staff. CT head showed cerebral atrophy and chronic small was ischemia. No change compared to old exam. There is some white matter hypodensity in the anterior right internal capsule consistent with old olecranon infarct. CT abdomen and pelvis showed bilateral pleural effusions and basilar pulmonary consolidation and atelectasis. Subcutaneous edema around the abdomen that could be related to congestive heart failure. There is probably small gallstones. Collect diverticulosis without diverticulitis. No acute abnormality within the abdominal pelvis. This patient is an 83-year-old man transferred here from [facility] to be evaluated for change in his mentation, change in the color of the skin to the right side of his abdomen, and possibly shortness of breath. The patient when I interview him does not give any complaints. He denies having pain anywhere. He is not otherwise able to give much in way history appearing to be having some dementia versus delirium. Chest x-ray showed right lower lobe infiltrate and atelectasis appears to be worse than old exam. No gross heart failure. EKG showed sinus bradycardia Patient has been on oxygen since admission to extended care [facility]. 12/16/2018 Patient is lying in bed, looks lethargic. He is alert awake and alert oriented to person and partially to time and place, he knows in the hospital but could not remember the name of the hospital, and he knew the month but not the ureter gait. He still dyspneic on 4 L oxygen via nasal cannula. He has dry cough but denies chest pain. Patient has right sided abdominal redness and warmth and periumbilical tenderness. He is saturating in the low 90s on 4 L via nasal cannula. No fever, no tachycardia and is breathing quietly at 16 BPM. Labs reviewed showing no leukocytosis. Anemia with hemoglobin stable around 8.6. His creatinine is stable at 1.8. Electrolytes within normal limits. CONSTITUTIONAL: No fever, no malaise, no fatigue. HEENT: No recent visual problems or hearing problems. Denied any sore throat. CARDIOVASCULAR: No orthopnea, PND, no palpitations, no syncope. PULMONARY: No shortness of breath, no cough, no hemoptysis. GASTROINTESTINAL: No diarrhea, no nausea, no vomiting, no abdominal pain. Normoactive bowel sounds. NEUROLOGICAL: No headaches, no weakness, no numbness. HEMATOLOGICAL: Denies any bleeding or petechiae. GENITOURINARY: Denies any burning micturition, frequency, or urgency. MUSCULOSKELETAL/RHEUMATOLOGICAL: Denies any joint pain, swelling, or any muscle pain. ENDOCRINE: Denies any polyuria or polydipsia. Medications reviewed and include: Tylenol, albuterol, Norvasc, Eliquis, aspirin , atenolol, Lipitor, bismuth, Wellbutrin, Celexa, vitamin B12, cyclosporine ophthalmic solution, Bentyl, Colace, Proscar, Lasix, hydralazine, [place], NovoLog , Levemir insulin, lactulose, levofloxacin, levothyroxine, loratadine, Ativan, melatonin, multivitamin, oxybutynin, Protonix, Zosyn Objective - Vital Signs Vital signs: Vital Signs Temp 97.5 F L 12/16/18 06:00 Pulse 96 12/16/18 09:11 Resp 16 12/16/18 06:00 BP 161/71 12/16/18 06:00 Pulse Ox 90 L 12/16/18 06:37 Intake & Output 12/15/18 12/16/18 12/16/18 18:59 06:59 18:59 Intake Total 560 1180 Balance 560 1180 Intake: Intake, IV Titration 320 Amount Levofloxacin 750Mg-D5w 100 Pmx 750 mg In Dextrose/ Water 1 150ml.bag @ 100 mls/hr IVPB Q48H NICKIE Rx#: [id number] Piperacillin-Tazobactam 3 100 .375 gm In Sodium Chloride 0.9% 100 ml @ 25 mls/hr IVPB Q8H NICKIE Rx#: [id number] Sodium Chloride 0.9% 1, 120 000 ml @ 20 mls/hr IV . Q24H NICKIE Rx#:[id number] Oral 240 1180 Other: Voiding Method Diaper Diaper # Voids 2 2 - Exam -GENERAL: The patient is alert and oriented x3, with partially to place and time , not in any acute distress. Generally weak HEENT: Pupils are round and equally reacting to light. EOMI. No scleral icterus. No conjunctival pallor. Normocephalic, atraumatic. No pharyngeal erythema. No thyromegaly. CARDIOVASCULAR: S1 and S2 present. No murmurs, rubs, or gallops. PULMONARY: Chest is clear to auscultation, no wheezing or crackles. ABDOMEN: Soft, nontender, nondistended, normoactive bowel sounds. No palpable organomegaly. MUSCULOSKELETAL: No joint swelling or deformity. EXTREMITIES: No cyanosis, clubbing, or pedal edema. NEUROLOGICAL: Gross neurological examination did not reveal any focal deficits. SKIN: No rashes. - Labs CBC & Chem 7: 12/16/18 07:23 12/16/18 07:23 Labs: Abnormal Lab Results - Last 24 Hours (Table) 12/15/18 12/15/18 12/15/18 Range/Units 11:06 17:14 20:02 RBC (4.30-5.90) m/uL Hgb (13.0-17.5) gm/dL Hct (39.0-53.0) % MCV (80.0-100.0) fL MCHC (31.0-37.0) g/dL Lymphocytes # (1.0-4.8) k/uL Carbon Dioxide (22-30) mmol/L BUN (9-20) mg/dL Creatinine (0.66-1.25) mg/dL Glucose (74-99) mg/dL POC Glucose (mg/dL) 160 H 241 H 148 H (75-99) mg/dL Calcium (8.4-10.2) mg/dL 12/16/18 12/16/18 12/16/18 Range/Units 07:01 07:23 07:23 RBC 2.61 L (4.30-5.90) m/uL Hgb 8.6 L (13.0-17.5) gm/dL Hct 28.0 L (39.0-53.0) % MCV 107.3 H (80.0-100.0) fL MCHC 30.8 L (31.0-37.0) g/dL Lymphocytes # 0.8 L (1.0-4.8) k/uL Carbon Dioxide 31 H (22-30) mmol/L BUN 28 H (9-20) mg/dL Creatinine 1.83 H (0.66-1.25) mg/dL Glucose 128 H (74-99) mg/dL POC Glucose (mg/dL) 142 H (75-99) mg/dL Calcium 8.1 L (8.4-10.2) mg/dL Microbiology - Last 24 Hours (Table) 12/15/18 00:13 Blood Culture - Preliminary Blood No Growth after 24 hours Assessment and Plan Plan: Assessment: Acute right lower lobe infiltrates/pneumonia/HCAP Bilateral small pleural effusion possible Right abdominal cellulitis abdominal pain Altered mental status possible metabolic encephalopathy, improving Diabetes type 2 insulin-dependent Recent history of CVA/Lacunar infarct. Coronary artery disease history of stent placement Hypertension Hyperlipidemia History of ND History of thyroid cancer Obstructive sleep apnea not using CPAP Macular degeneration of bilateral ice Anxiety depression and schizophrenia Medical debility currently [facility] Previous history of smoking Patient is on anticoagulation with Apixaban. Etiology not sure. Plan: Patient will be continued on broad-spectrum antibiotics in the form of Levaquin and Zosyn. We will check chest x-ray and abdominal x-ray for follow-up. Continue with home medications and insulin dosing. Oxygen therapy and follow up closely. Currently the current management and further recommendations based on the clinical course. Prognosis is guarded with multiple medical problems and comorbid conditions.
[2018-12-16 10:56] LABS: Glucose,Whole Blood 246 mg/dL (75-99)
--- NOTE | 2018-12-16 12:55 | XR ---
EXAMINATION TYPE: XR chest 1V DATE OF EXAM: 12/16/2018 HISTORY: Shortness of breath. COMPARISON: 12/15/2018 TECHNIQUE: Single view of the chest is submitted. FINDINGS: Demonstrated are scattered senescent parenchymal change. Patchy perihilar and right basilar infiltrate persists. Chronic elevation right hemidiaphragm. The heart is stable. Hilar and mediastinal structures are within normal limits. Degenerative changes are seen of the dorsal spine. IMPRESSION: 1. Patchy perihilar and right basilar infiltrate persists. Chronic elevation right hemidiaphragm.
--- NOTE | 2018-12-16 16:32 | CONS ---
CONSULTATION PULMONARY/CRITICAL CARE CONSULTATION: DATE OF CONSULTATION: 12/16/2018 REASON FOR CONSULTATION: Shortness of breath. This is an 83-year-old male transferred from a alf to be evaluated for change in mentation. The patient also apparently was complaining of shortness of breath, chest congestion, cough and inability to lie flat. In addition, he had some lower extremity edema. The patient is a very poor historian. He does not give much history. Denies any fever or chills. No nausea, vomiting or diarrhea. He was recently inpatient. His home medications are reviewed. They are extensive and include those listed in his MAR. I will not detail all of them here. ALLERGIES: DENIED. PAST MEDICAL HISTORY: Includes: 1. Coronary artery disease. 2. Diabetes mellitus. 3. GERD. 4. Hyperlipidemia. 5. Hypertension. 6. Myocardial infarction. 7. Pneumonia. 8. Sleep apnea syndrome, currently on CPAP. 9. Hypothyroidism. 10.Hiatal hernia. 11.Thyroid cancer. 12.Macular degeneration. SURGICAL HISTORY: Includes, among other things: 1. Heart catheterization with stent. 2. Joint replacement. 3. Left knee replacement. 4. Bilateral cataract surgery. 5. Thyroidectomy. SOCIAL HISTORY: Positive for previous tobacco use. Denies any alcohol use or illicit drug use. FAMILY HISTORY: Includes primarily cancer. No other major medical problems in the family are noted. REVIEW OF SYSTEMS: Again, the patient is a very poor historian, but his major complaint was chest congestion, shortness of breath, cough with minimal phlegm production. In addition, he complains of some swelling of his legs and inability to lie flat in bed. PHYSICAL EXAMINATION: Current vital signs are reviewed: Temperature 97.6, heart rate 54, respiratory rate 20. Blood pressure is 161/71, mean 101, and saturations are 93% to 95% on 3 L. Appears in no acute distress. No audible wheezing. No use of accessory muscles. No conversational dyspnea. HEENT examination is grossly unremarkable. Nasal oxygen noted. NECK: Supple. Full range of motion. No adenopathy or thyromegaly. Neck veins are flat. Cardiovascular examination reveals distant heart sounds. Heart rate about 60 beats per minute. S1, S2 normal. A soft systolic murmur is heard. Lungs reveal coarse rhonchi. There are some bibasilar crackles. No wheezes. Breath sounds are diminished. They are equal bilaterally. ABDOMEN: Soft. Bowel sounds are heard. Extremities are intact. There is some mild edema. It is 1+. It mostly involves the ankles and feet. Skin without rash. Neurologic examination is difficult to assess, given the patient's somewhat poor mental status. LAB STUDIES: Microbiological studies are thus far negative. Labs are reviewed. White count 7.6, hemoglobin 8.6, hematocrit 28.0, platelet count 205,000. Sodium 141, potassium 4, chloride 107, CO2 31. Anion gap is 3. BUN and creatinine were 28 and 1.83. N-terminal proBNP is 10,600. IMAGING: The patient had a chest x-ray on 12/14/2018. It showed some right lower lobe, right mid lung infiltrate or atelectasis. The patient had a CT scan of the abdomen and pelvis on 12/15/2018 which showed bilateral pleural effusion and basilar pulmonary consolidations. This was thought to be related to underlying heart failure. A brain CT was done. It apparently shows cerebral atrophy but nothing acute. A follow- up chest x-ray was done on 12/16/2018 which showed chronic elevation of the right hemidiaphragm and patchy bilateral infiltrates. Medications are reviewed. The patient is on numerous medications. ASSESSMENT: 1. Shortness of breath, likely multifactorial, in part related to underlying heart failure, but also there may be a component of pneumonia. 2. Acute hypoxemic respiratory failure secondary to above. 3. History of coronary artery disease. 4. Diabetes mellitus. 5. Gastroesophageal reflux disease. 6. Hyperlipidemia. 7. Hypertension. 8. Previous myocardial infarction. 9. Sleep apnea syndrome. 10.Hypothyroidism. 11.History of pneumonia. 12.History of prostate disorder. 13.Status post heart catheterization with stent placement. PLAN: The patient's medications are reviewed. We will make sure that he is on appropriate medications for the problems as above. He will need updrafts and antibiotics. In addition, we will make sure that he has proper medications for what appears to be CHF. Additional recommendations and suggestions are forthcoming. Prognosis is very guarded. The patient's overall condition is not great. We will continue to follow closely. MMODL / IJN: [id number] / RICK
[2018-12-16 16:37] LABS: Glucose,Whole Blood 113 mg/dL (75-99)
[2018-12-16 20:52] LABS: Glucose,Whole Blood 81 mg/dL (75-99)
[2018-12-16] MEDS ORDERED: LEVOFLOXACIN 750MG-D5W PMX 750 MG in DEXTROSE/WATER 1 150ML.BAG IVPB SCH (21:00)
[2018-12-16] MEDS ORDERED: FUROSEMIDE 10 MG/ML 2 ML VIAL IV ONE (21:29)
[2018-12-16] MEDS: MELATONIN 3 MG TABLET PO SCH (21:57)
[2018-12-16] MEDS: CYANOCOBALAMIN 500 MCG TAB PO SCH (22:04)
[2018-12-16] MEDS: ASPIRIN 81 MG PO SCH (22:07)
[2018-12-16] MEDS: TAMSULOSIN 0.4 MG CAP.ER.24H PO SCH (22:07)
[2018-12-16] MEDS: ATORVASTATIN 20 MG TAB PO SCH (22:07)
[2018-12-16 22:55] LABS: ABG Base Excess 7.7 mmol/L; ABG HCO3 33 mmol/L (21-25); ABG Oxygen Saturation 99.6 % (94-97); ABG PCO2 52 mmHg (35-45); ABG PO2 134 mmHg (83-108); ABG TCO2 34 mmol/L (19-24)
[2018-12-16] MEDS: FUROSEMIDE 10 MG/ML 4 ML VIAL IV SCH (23:21)
--- NOTE | 2018-12-16 23:55 | XR ---
EXAMINATION TYPE: XR chest 1V portable DATE OF EXAM: 12/16/2018 COMPARISON: 12/16/2018 HISTORY: Difficulty breathing TECHNIQUE: Single frontal view of the chest is obtained. FINDINGS: Heart is enlarged. There is mild pulmonary vascular congestion. There is slight blunting o f the costophrenic angles. IMPRESSION: Mild heart failure with pleural effusions. Chest is improved compared to exam this ella galarza
[2018-12-17] MEDS: LORazepam 0.5 MG TAB PO SCH ×4 (00:18→23:17)
[2018-12-17] MEDS ORDERED: LEVOFLOXACIN 750MG-D5W PMX 750 MG in DEXTROSE/WATER 1 150ML.BAG IVPB SCH (04:00)
[2018-12-17] MEDS: INSULIN ASPART 100 UNIT/ML 1 ML 10 ML VIAL SQ SCH ×3 (06:06→17:07)
[2018-12-17 06:07] LABS: Glucose,Whole Blood 91 mg/dL (75-99)
[2018-12-17] MEDS: PANTOPRAZOLE 40 MG TABLET PO SCH (06:08)
[2018-12-17] MEDS: LEVOTHYROXINE 88 MCG TAB PO SCH (06:08)
[2018-12-17 06:30] LABS: Basophils % (A) 0 %; Eosinophils # (A) 0.2 k/uL (0-0.7); Eosinophils % (A) 2 %; HCT 30.3 % (39.0-53.0); HGB 9.4 gm/dL (13.0-17.5); Hypochromasia Moderate; Lymphocytes # (A) 0.8 k/uL (1.0-4.8); Lymphocytes % (A) 11 %; MCH 32.6 pg (25.0-35.0); MCHC 30.9 g/dL (31.0-37.0); MCV 105.5 fL (80.0-100.0); Macrocytosis Moderate; Mean Platelet Volume 7.1; Monocytes # (A) 0.4 k/uL (0-1.0); Monocytes % (A) 5 %; Neutrophils # (A) 6.1 k/uL (1.3-7.7); Neutrophils % (A) 80 %; Platelet Count 211 k/uL (150-450); RBC 2.87 m/uL (4.30-5.90); RDW 15.1 % (11.5-15.5); WBC 7.6 k/uL (3.8-10.6)
[2018-12-17 06:45] LABS: Calcium 8.1 mg/dL (8.4-10.2); Magnesium 2.2 mg/dL (1.6-2.3); Potassium 3.4 mmol/L (3.5-5.1)
[2018-12-17] MEDS: PIPERACILLIN-TAZOBACTAM 3.375 GM in SODIUM CHLORIDE 0.9% 100 ML IVPB SCH ×3 (06:47→21:33)
[2018-12-17] MEDS: OXYBUTYNIN CHLORIDE 5 MG TAB PO SCH ×2 (08:08→21:30)
[2018-12-17] MEDS: APIXABAN 2.5 MG TABLET PO SCH ×2 (08:09→21:29)
[2018-12-17] MEDS: LORATADINE 10 MG TAB PO SCH (08:09)
[2018-12-17] MEDS: hydrALAZINE HCL 50 MG TAB PO SCH ×3 (08:09→21:31)
[2018-12-17] MEDS: FINASTERIDE 5 MG TAB PO SCH (08:09)
[2018-12-17] MEDS: ATENOLOL 50 MG TAB PO SCH (08:09)
[2018-12-17] MEDS: cycloSPORINE 0.05% OPHTH 0.4 ML DROPERETTE BOTH EYES SCH ×2 (08:09→21:30)
[2018-12-17] MEDS: amLODIPine 5 MG TAB PO SCH ×2 (08:09→21:29)
[2018-12-17] MEDS: DOCUSATE 100 MG CAP PO SCH ×2 (08:09→21:30)
[2018-12-17] MEDS: FUROSEMIDE 10 MG/ML 4 ML VIAL IV SCH ×3 (08:09→23:17)
[2018-12-17] MEDS: buPROPion 75 MG TAB PO SCH (08:10)
[2018-12-17] MEDS: VIT A,C & E-LUTEIN-MINERALS 1 EACH TAB PO SCH ×2 (08:10→21:31)
[2018-12-17] MEDS: IPRATROPIUM-ALBUTEROL 3 ML NEB INHALATION SCH ×4 (08:51→20:44)
--- NOTE | 2018-12-17 11:18 | P.CRDCN ---
History of Present Illness Consult date: 12/17/18 Requesting physician: Di Stokes Reason for Consult (text): Bradycardia Chief complaint: Mental status changes History of present illness: This is an 83-year-old gentleman with known history of coronary artery disease and prior PCI, hyperlipidemia, hypothyroidism, ischemic cardiomyopathy, diabetes, paroxysmal atrial fibrillation, prior CVA, sleep apnea , renal insufficiency, was just recently discharged from the hospital after being admitted with congestive heart failure. He was at an extended care facility, apparently recently admitted to the hospital on this occasion with mental status changes and shortness of breath. Cardiology consultation was requested for sinus bradycardia. His EKG on admission here showed a sinus bradycardia with nonspecific ST-T wave changes, heart rate in the 50s. Initial chest x-ray on admission here showed right lower lobe infiltrate and atelectasis appeared worsened prior exam. CAT scan of the abdomen and pelvis showed bilateral pleural effusions and basilar pulmonary consolidation and atelectasis. Subcutaneous edema around the abdomen. CAT scan of the brain revealed cerebral atrophy and chronic small vessel ischemia. Chest x-ray shows patchy hilar and right basilar infiltrate. Repeat chest x-ray from this morning shows mild heart failure with pleural effusions. Blood pressure 120/60 with a heart rate this morning in the 80s to 90s, 94% on 6 L of oxygen. White blood cell count 7.6, hemoglobin 9.4, platelet count 211. Sodium 142, potassium 3.4, BUN 30, creatinine 1.9. Magnesium 2.2. BNP level 10,600. At the time of my examination this morning, patient generally complains of feeling achy all over. He does feel mildly short of breath, has some abdominal discomfort, and states that he doesn't feel right in his head. Past Medical History Past Medical History: Coronary Artery Disease (CAD), Cancer, Diabetes Mellitus, GERD/Reflux, Hyperlipidemia, Hypertension, Myocardial Infarction ([place]), Pneumonia , Prostate Disorder, Sleep Apnea/CPAP/BIPAP, Thyroid Disorder Additional Past Medical History / Comment(s): no CPAP used, hiatal hernia, hx thyroid cancer, macular degeneration danielle eyes Last Myocardial Infarction Date:: 1999 History of Any Multi-Drug Resistant Organisms: None Reported Past Surgical History: Heart Catheterization With Stent, Joint Replacement Additional Past Surgical History / Comment(s): left knee replacement, danielle cataracts, thyroidectomy Past Anesthesia/Blood Transfusion Reactions: No Reported Reaction Additional Past Anesthesia/Blood Transfusion Reaction / Comment(s): clausterphobia -"uses open mri" Date of Last Stent Placement:: 1999 Past Psychological History: Anxiety, Depression, Schizophrenia Additional Psychological History / Comment(s): Pt currently is staying at [facility] for rehab since 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 They are getting him up with walker and he just started using the bars. Pt also has been on oxygen since getting to rehab. He no longer drives, family can take him to app. Smoking Status: Former smoker Past Alcohol Use History: None Reported Additional Past Alcohol Use History / Comment(s): started smoking 1952 and quit 1993 Past Drug Use History: None Reported - Past Family History Father Family Medical History: Cancer Additional Family Medical History / Comment(s): Father had lung cancer and colorectal cancer. He smoked as a younger man. Mother Family Medical History: Cancer Additional Family Medical History / Comment(s): Mother had lung cancer. She was a lifelong smoker Medications and Allergies Home Medications Medication Instructions Recorded Confirmed Type Citalopram Hydrobromide 40 mg PO HS 09/29/14 12/15/18 History [Citalopram HBr] Levothyroxine Sodium [Synthroid] 88 mcg PO DAILY 09/29/14 12/15/18 History Multivitamins, Thera [Multivitamin 1 tab PO HS 09/29/14 12/15/18 History (formulary)] Omeprazole [PriLOSEC] 20 mg PO BID 09/29/14 12/15/18 History Simvastatin [Zocor] 40 mg PO HS 09/29/14 12/15/18 History Cyanocobalamin [Vitamin B-12] 500 mcg PO HS 11/07/18 12/15/18 History Tamsulosin HCl [Flomax] 0.4 mg PO HS@199911/07/18 12/15/18 History Vit C/E/Zn/Coppr/Lutein/Zeaxan 1 cap PO BID 11/07/18 12/15/18 History [Preservision Areds 2 Softgel] Apixaban [Eliquis] 2.5 mg PO BID tablet 11/18/18 12/15/18 Rx Docusate [Colace] 100 mg PO BID cap 11/18/18 12/15/18 Rx Insulin Aspart [NovoLOG 5 unit SQ AC-TID vial 11/18/18 12/15/18 Rx (formulary)] risperiDONE [RisperDAL] 1 mg PO BID 3 Days #6 tab 11/18/18 12/15/18 Rx Acetaminophen [Tylenol] 650 mg PO Q4H PRN 11/26/18 12/15/18 History Bismuth Subsalicylate [Kaopectate] 262 mg PO Q4H 11/26/18 12/15/18 History Loratadine [Claritin] 10 mg PO DAILY 11/26/18 12/15/18 History Melatonin 3 mg PO HS 11/26/18 12/15/18 History buPROPion [Wellbutrin] 150 mg PO DAILY 11/26/18 12/15/18 History Atenolol [Tenormin] 50 mg PO DAILY #0 tab 12/06/18 12/15/18 Rx Dicyclomine [Bentyl] 10 mg PO QID cap 12/06/18 12/15/18 Rx Ferrous Sulfate [Iron (65 MG 325 mg PO BID tab 12/06/18 12/15/18 Rx Elemental)] Finasteride [Proscar] 5 mg PO DAILY tab 12/06/18 12/15/18 Rx hydrALAZINE HCL [Apresoline] 50 mg PO TID tab 12/06/18 12/15/18 Rx Oxybutynin Chloride [Ditropan] 2.5 mg PO BID #0 tab 12/09/18 12/15/18 Rx Aspirin 81 mg PO HS 12/15/18 12/15/18 History Furosemide [Lasix] 20 mg PO DAILY 12/15/18 12/15/18 History Kelly-Lanta 30 ml PO Q6H PRN 12/15/18 12/15/18 History Insulin Aspart [NovoLOG See Protocol SQ ACHS 12/15/18 12/15/18 History (formulary)] Insulin Detemir [Levemir] 15 unit SQ DAILY 12/15/18 12/15/18 History Ipratropium/Albuterol Sulfate 1 puff INHALATION RT-QID 12/15/18 12/15/18 History [Combivent Respimat Inhaler] LORazepam [Ativan] 1 mg PO Q8H 12/15/18 12/15/18 History Lactulose [Cephulac] 20 gm PO TID PRN 12/15/18 12/15/18 History amLODIPine [Norvasc] 5 mg PO BID 12/15/18 12/15/18 History cycloSPORINE [Restasis] 1 drop BOTH EYES BID 12/15/18 12/15/18 History predniSONE See Taper PO DAILY 12/15/18 12/15/18 History Allergies Allergy/AdvReac Type Severity Reaction Status Date / Time No Known Allergies Allergy Verified 12/15/18 07:14 Physical Exam Vitals: Vital Signs Temp Pulse Pulse Resp BP BP Pulse Ox 12/17/18 08:51 92 95 12/17/18 08:10 97.7 F 99 19 121/64 94 L 12/17/18 03:59 87 18 12/17/18 03:58 18 96 12/17/18 03:57 97.8 F 87 18 137/67 97 12/17/18 01:20 18 95 12/17/18 01:15 97.7 F 88 18 142/96 99 12/17/18 00:38 46 L 17 162/65 99 12/16/18 23:19 45 L 12 150/66 12/16/18 22:09 46 L 20 171/65 100 12/16/18 21:30 48 L 20 164/66 97 12/16/18 21:20 20 96 12/16/18 21:10 40 L 19 145/68 78 L 12/16/18 21:01 51 L 12/16/18 20:59 97.6 F 51 L 17 145/54 86 L 12/16/18 20:47 51 L 12/16/18 16:00 54 L 20 12/16/18 12:44 96 12/16/18 12:27 96 12/16/18 11:35 93 L 12/16/18 11:30 97.6 F 54 L 20 87 L Intake and Output 12/16/18 12/17/18 12/17/18 22:59 06:59 14:59 Intake Total 720 240 Output Total 150 2100 Balance 570 -2100 240 Intake: Oral 720 240 Output: Urine 150 2100 Uretheral (Lamas) 600 Other: Voiding Method Incontinent Indwelling Catheter Indwelling Catheter # Voids 1 PHYSICAL EXAMINATION: GENERAL: 83-year-old gentleman in no acute distress at the time of my examination HEENT: Head is atraumatic, normocephalic. Pupils equal, round. Sclera anicteric. Conjunctiva are clear. Mucous membranes of the mouth are moist. Neck is supple. There is no elevated jugular venous pressure. No carotid bruit is heard. HEART EXAMINATION: Heart S1, S2 normal. No murmur or gallop heard. CHEST EXAMINATION: Lungs reveal coarse rhonchi throughout with crackles to the bases, diminished air entry to bilateral bases. . ABDOMEN: Soft, nontender. Bowel sounds are heard. No organomegaly noted. EXTREMITIES: 2+ peripheral pulses with trace evidence of peripheral edema and no calf tenderness noted. NEUROLOGIC patient is awake, alert and oriented X2. . Results 12/17/18 05:29 12/17/18 05:29 CBC 12/17/18 Range/Units 05:29 WBC 7.6 (3.8-10.6) k/uL RBC 2.87 L (4.30-5.90) m/uL Hgb 9.4 L (13.0-17.5) gm/dL Hct 30.3 L (39.0-53.0) % Plt Count 211 (150-450) k/uL Comprehensive Metabolic Panel 12/17/18 Range/Units 05:29 Sodium 142 (137-145) mmol/L Potassium 3.4 L (3.5-5.1) mmol/L Chloride 103 (98-107) mmol/L Carbon Dioxide 34 H (22-30) mmol/L BUN 30 H (9-20) mg/dL Creatinine 1.96 H (0.66-1.25) mg/dL Glucose 71 L (74-99) mg/dL Calcium 8.1 L (8.4-10.2) mg/dL Current Medications Generic Name Dose Route Start Last Admin Trade Name Freq PRN Reason Stop Dose Admin Acetaminophen 650 mg 12/15/18 13:06 12/15/18 15:35 Tylenol Tab PO 650 mg Q6H PRN Administration Fever Hydrocodone Bitart/Acetaminophen 1 each 12/15/18 16:43 12/15/18 20:33 [place]rae [place] 5-325 PO 1 each HS PRN Administration Breakthrough Pain Albuterol/Ipratropium 3 ml 12/15/18 20:00 12/17/18 08:51 Duoneb 0.5 Mg-3 Mg/3 Ml Soln INHALATION 3 ml RT-QID NICKIE Administration Amlodipine Besylate 5 mg 12/15/18 21:00 12/17/18 08:09 Norvasc PO 5 mg BID NICKIE Administration Apixaban 2.5 mg 12/15/18 21:00 12/17/18 08:09 Eliquis PO 2.5 mg BID NICKIE Administration Aspirin 81 mg 12/15/18 21:00 12/16/18 22:07 Aspirin PO 81 mg HS NICKIE Administration Atenolol 50 mg 12/15/18 13:30 12/17/18 08:09 Tenormin PO 50 mg DAILY NICKIE Administration Atorvastatin Calcium 20 mg 12/15/18 21:00 12/16/18 22:07 Lipitor PO 20 mg HS NICKIE Administration Bismuth Subsalicylate 262 mg 12/15/18 13:15 12/15/18 19:54 Bismatrol PO 262 mg Q4H PRN Administration GI SYMPTOMS/UPSET Bupropion HCl 150 mg 12/16/18 09:00 12/17/18 08:10 Wellbutrin PO 150 mg DAILY NICKIE Administration Citalopram Hydrobromide 40 mg 12/15/18 21:00 12/15/18 20:37 Celexa PO 40 mg HS NICKIE Administration Cyanocobalamin 500 mcg 12/15/18 21:00 12/16/18 22:04 Vitamin B-12 PO Not Given HS NICKIE Cyclosporine 1 drops 12/15/18 21:00 12/17/18 08:09 Restasis 0.05% Ophth Soln BOTH EYES 1 drops BID NICKIE Administration Dicyclomine HCl 10 mg 12/15/18 13:06 12/15/18 19:54 Bentyl PO 10 mg QID PRN Administration GI Upset Docusate Sodium 100 mg 12/15/18 21:00 12/17/18 08:09 Colace PO 100 mg BID NICKIE Administration Finasteride 5 mg 12/16/18 09:00 12/17/18 08:09 Proscar PO 5 mg DAILY NICKIE Administration Furosemide 40 mg 12/17/18 00:00 12/17/18 08:09 Lasix IV 40 mg Q8HR NICKIE Administration Hydralazine HCl 50 mg 12/15/18 16:00 12/17/18 08:09 Apresoline PO 50 mg TID NICKIE Administration Piperacillin Sod/Tazobactam 100 mls @ 25 mls/hr 12/15/18 14:00 12/17/18 06:47 Sod 3.375 gm/ Sodium Chloride IVPB 12/25/18 14:01 25 mls/hr Q8H NICKIE Administration Levofloxacin 750 mg/ IV 150 mls @ 100 mls/hr 12/17/18 04:00 12/17/18 04:58 Solution IVPB 100 mls/hr Q48H NCIKIE Administration Insulin Aspart 5 unit 12/15/18 17:30 12/17/18 06:06 Novolog SQ Not Given AC-TID NICKIE Insulin Detemir 15 unit 12/15/18 13:45 12/16/18 08:51 Levemir SQ 15 unit DAILY NICKIE Administration Lactulose 20 gm 12/15/18 13:06 Cephulac PO TID PRN Constipation Levothyroxine Sodium 88 mcg 12/16/18 06:30 12/17/18 06:08 Synthroid PO 88 mcg DAILY@0630 NICKIE Administration Loratadine 10 mg 12/16/18 09:00 12/17/18 08:09 Claritin PO 10 mg DAILY NICKIE Administration Lorazepam 0.5 mg 12/15/18 13:45 12/17/18 08:09 Ativan PO 0.5 mg Q8HR NICKIE Administration Melatonin 3 mg 12/15/18 21:00 12/16/18 21:57 Melatonin PO Not Given HS [facility] Miscellaneous Information 1 each 12/15/18 06:36 Pneumonia Protocol Utilized PO ONCE PRN Per Protocol Multivitamins 1 each 12/15/18 21:00 12/16/18 21:58 Theragran PO Not Given HS [facility] Multivitamins/Minerals 1 each 12/15/18 21:00 12/17/18 08:10 Ivite PO 1 each BID NICKIE Administration Oxybutynin Chloride 2.5 mg 12/15/18 21:00 12/17/18 08:08 Ditropan PO 2.5 mg BID NICKIE Administration Pantoprazole Sodium 40 mg 12/15/18 14:00 12/17/18 06:08 Protonix PO 40 mg AC-BRKFST NICKIE Administration Tamsulosin HCl 0.4 mg 12/15/18 20:00 12/16/18 22:07 Flomax PO 0.4 mg HS@2000 NICKIE Administration Intake and Output 12/16/18 12/17/1819 22:59 06:59 14:59 Intake Total 720 240 Output Total 150 2100 Balance 570 -2100 240 Intake: Oral 720 240 Output: Urine 150 2100 Uretheral (Lamas) 600 Other: Voiding Method Incontinent Indwelling Catheter Indwelling Catheter # Voids 1 12/17/18 05:29 12/17/18 05:29 EKG Interpretations (text) Initial EKG shows sinus bradycardia Assessment and Plan Plan: Assessment and plan #1 Acute on chronic hypoxic respiratory failure secondary to pneumonia. #2 Acute exacerbation of chronic diastolic congestive heart failure. 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 #4 History of atrial fibrillation currently in sinus rhythm. Anticoagulated with Eliquis. #5 Chronic kidney disease stage 3/4. #6 Hyperkalemia. #7 Diabetes mellitus, type II. #8 History of thyroid cancer, hypothyroidism. #9 Hypertension. #10 Anxiety/depression. #11 Macular degeneration. #12 Coronary artery disease with previous stent placement. #13 History of chronic tobacco dependence. #14 Ischemic cardiomyopathy. #15 mental status changes Plan We will not repeat an echocardiogram with Doppler study, patient just had one in November 07 that showed a normal LV function. Continue IV Lasix. Continue to monitor intake and output along with daily weights and daily lytes BUN and creatinine. We will decrease his home dose of atenolol to 25 mg daily. Check TSH level. DNP note has been reviewed, I agree with a documented findings and plan of care. Patient was seen and examined.
[2018-12-17] MEDS ORDERED: POTASSIUM CHLORIDE ER 20 MEQ TAB.ER PO STA (11:24)
--- NOTE | 2018-12-17 11:46 | P.NPCON ---
History of Present Illness - Reason for Consult acute renal failure, chronic renal failure - History of Present Illness Reason for consultation: Acute kidney injury on chronic kidney disease History of present illness: Patient is a 83-year-old male seen in consultation for acute kidney injury on chronic kidney disease. 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 Creatinine recently has been in the range of 1.82. This admission his creatinine was 1.83 and is 1.96 today. He has a history of urinary retention. He currently has a Lamas catheter in place. Patient presented to the hospital with dyspnea. He denies any fever or chills. Denies cough. Currently maintained on Lasix 40 mg IV 3 times daily. He is nonoliguric. No vomiting or diarrhea. Hemodynamically stable. No chest pain. Vital signs are stable. General: The patient appeared well nourished and normally developed. HEENT: Head exam is unremarkable. Neck is without jugular venous distension. LUNGS: Breath sounds decreased. HEART: Rate and Rhythm are regular. First and second heart sounds normal. No murmurs, rubs or gallops. ABDOMEN: Abdominal exam reveals normal bowel sounds. Non-tender and non- distended. No evidence of peritonitis. EXTREMITITES: Trace edema. Past Medical History Past Medical History: Coronary Artery Disease (CAD), Cancer, Diabetes Mellitus, GERD/Reflux, Hyperlipidemia, Hypertension, Myocardial Infarction ([place]), Pneumonia , Prostate Disorder, Sleep Apnea/CPAP/BIPAP, Thyroid Disorder Additional Past Medical History / Comment(s): no CPAP used, hiatal hernia, hx thyroid cancer, macular degeneration danielle eyes Last Myocardial Infarction Date:: 1999 History of Any Multi-Drug Resistant Organisms: None Reported Past Surgical History: Heart Catheterization With Stent, Joint Replacement Additional Past Surgical History / Comment(s): left knee replacement, [place] cataracts, thyroidectomy Past Anesthesia/Blood Transfusion Reactions: No Reported Reaction Additional Past Anesthesia/Blood Transfusion Reaction / Comment(s): clausterphobia -"uses open mri" Date of Last Stent Placement:: 1999 Past Psychological History: Anxiety, Depression, Schizophrenia Additional Psychological History / Comment(s): Pt currently is staying at [facility] for rehab since 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 They are getting him up with walker and he just started using the bars. Pt also has been on oxygen since getting to rehab. He no longer drives, family can take him to appts. Smoking Status: Former smoker Past Alcohol Use History: None Reported Additional Past Alcohol Use History / Comment(s): started smoking 1952 and quit 1993 Past Drug Use History: None Reported - Past Family History Father Family Medical History: Cancer Additional Family Medical History / Comment(s): Father had lung cancer and colorectal cancer. He smoked as a younger man. Mother Family Medical History: Cancer Additional Family Medical History / Comment(s): Mother had lung cancer. She was a lifelong smoker Medications and Allergies Home Medications Medication Instructions Recorded Confirmed Type Citalopram Hydrobromide 40 mg PO HS 09/29/14 12/15/18 History [Citalopram HBr] Levothyroxine Sodium [Synthroid] 88 mcg PO DAILY 09/29/14 12/15/18 History Multivitamins, Thera [Multivitamin 1 tab PO HS 09/29/14 12/15/18 History (formulary)] Omeprazole [PriLOSEC] 20 mg PO BID 09/29/14 12/15/18 History Simvastatin [Zocor] 40 mg PO HS 09/29/14 12/15/18 History Cyanocobalamin [Vitamin B-12] 500 mcg PO HS 11/07/18 12/15/18 History Tamsulosin HCl [Flomax] 0.4 mg PO HS@199911/07/18 12/15/18 History Vit C/E/Zn/Coppr/Lutein/Zeaxan 1 cap PO BID 11/07/18 12/15/18 History [Preservision Areds 2 Softgel] Apixaban [Eliquis] 2.5 mg PO BID tablet 11/18/18 12/15/18 Rx Docusate [Colace] 100 mg PO BID cap 11/18/18 12/15/18 Rx Insulin Aspart [NovoLOG 5 unit SQ AC-TID vial 11/18/18 12/15/18 Rx (formulary)] risperiDONE [RisperDAL] 1 mg PO BID 3 Days #6 tab 11/18/18 12/15/18 Rx Acetaminophen [Tylenol] 650 mg PO Q4H PRN 11/26/18 12/15/18 History Bismuth Subsalicylate [Kaopectate] 262 mg PO Q4H 11/26/18 12/15/18 History Loratadine [Claritin] 10 mg PO DAILY 11/26/18 12/15/18 History Melatonin 3 mg PO HS 11/26/18 12/15/18 History buPROPion [Wellbutrin] 150 mg PO DAILY 11/26/18 12/15/18 History Atenolol [Tenormin] 50 mg PO DAILY #0 tab 12/06/18 12/15/18 Rx Dicyclomine [Bentyl] 10 mg PO QID cap 12/06/18 12/15/18 Rx Ferrous Sulfate [Iron (65 MG 325 mg PO BID tab 12/06/18 12/15/18 Rx Elemental)] Finasteride [Proscar] 5 mg PO DAILY tab 12/06/18 12/15/18 Rx hydrALAZINE HCL [Apresoline] 50 mg PO TID tab 12/06/18 12/15/18 Rx Oxybutynin Chloride [Ditropan] 2.5 mg PO BID #0 tab 12/09/18 12/15/18 Rx Aspirin 81 mg PO HS 12/15/18 12/15/18 History Furosemide [Lasix] 20 mg PO DAILY 12/15/18 12/15/18 History Kelly-Lanta 30 ml PO Q6H PRN 12/15/18 12/15/18 History Insulin Aspart [NovoLOG See Protocol SQ ACHS 12/15/18 12/15/18 History (formulary)] Insulin Detemir [Levemir] 15 unit SQ DAILY 12/15/18 12/15/18 History Ipratropium/Albuterol Sulfate 1 puff INHALATION RT-QID 12/15/18 12/15/18 History [Combivent Respimat Inhaler] LORazepam [Ativan] 1 mg PO Q8H 12/15/18 12/15/18 History Lactulose [Cephulac] 20 gm PO TID PRN 12/15/18 12/15/18 History amLODIPine [Norvasc] 5 mg PO BID 12/15/18 12/15/18 History cycloSPORINE [Restasis] 1 drop BOTH EYES BID 12/15/18 12/15/18 History predniSONE See Taper PO DAILY 12/15/18 12/15/18 History Allergies Allergy/AdvReac Type Severity Reaction Status Date / Time No Known Allergies Allergy Verified 01/27/19 07:14 Physical Exam Vitals: Vital Signs Temp Pulse Pulse Resp BP BP Pulse Ox 12/17/18 11:37 88 12/17/18 11:31 86 12/17/18 08:59 80 12/17/18 08:51 92 95 12/17/18 08:10 97.7 F 99 19 121/64 94 L 12/17/18 03:59 87 18 12/17/18 03:58 18 96 12/17/18 03:57 97.8 F 87 18 137/67 97 12/17/18 01:20 18 95 12/17/18 01:15 97.7 F 88 18 142/96 99 12/17/18 00:38 46 L 17 162/65 99 12/16/18 23:19 45 L 12 150/66 12/16/18 22:09 46 L 20 171/65 100 12/16/18 21:30 48 L 20 164/66 97 12/16/18 21:20 20 96 12/16/18 21:10 40 L 19 145/68 78 L 12/16/18 21:01 51 L 12/16/18 20:59 97.6 F 51 L 17 145/54 86 L 12/16/18 20:47 51 L 12/16/18 16:00 54 L 20 12/16/18 12:44 96 12/16/18 12:27 96 Intake and Output 12/16/18 12/17/18 12/17/18 22:59 06:59 14:59 Intake Total 720 240 Output Total 150 2100 Balance 570 -2100 240 Intake: Oral 720 240 Output: Urine 150 2100 Uretheral (Lamas) 600 Other: Voiding Method Incontinent Indwelling Catheter Indwelling Catheter # Voids 1 Results - Lab Results Most recent lab results ABG pH 7.40 (7.35-7.45) 12/16/18 22:47 ABG pCO2 52 mmHg (35-45) H 12/16/18 22:47 ABG pO2 134 mmHg (83-108) H 12/16/18 22:47 ABG HCO3 33 mmol/L (21-25) H 12/16/18 22:47 ABG O2 Saturation 99.6 % (94-97) H 12/16/18 22:47 Calcium 8.1 mg/dL (8.4-10.2) L 12/17/18 05:29 Magnesium 2.2 mg/dL (1.6-2.3) 12/17/18 05:29 12/17/18 05:29 12/17/18 05:29 Assessment and Plan Plan: Assessment: 1. 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 Recently creatinine has been in the range of 1.8-2. Currently at baseline. 2. History of urinary retention. Currently has a Lamas catheter in place. Maintained on Flomax. 3. Hypokalemia secondary to diuresis. Magnesium replete. 4. Volume overload. 5. Diastolic CHF. 6. Pneumonia. Maintained on antibiotics. 7. Recent CVA. 8. Hypertension with chronic kidney disease. Controlled. 9. Diabetes mellitus. 10. Acute hypoxic respiratory failure secondary to pneumonia and volume overload. 11. Anemia of chronic kidney disease. Plan: Maintain Lasix 40 mg IV 3 times daily for now. Replace potassium. 40 mEq today. Avoid nephrotoxins. Repeat electrolytes in the morning. Check iron studies. Add Aratessp. Thank you for the consultation. I will continue to follow the patient with you during his hospital stay.
[2018-12-17 12:05] LABS: Glucose,Whole Blood 155 mg/dL (75-99)
--- NOTE | 2018-12-17 12:26 | XR ---
EXAMINATION TYPE: XR abdomen 1V DATE OF EXAM: 12/16/2018 12:38 PM CLINICAL HISTORY: Periumbilical abdominal pain TECHNIQUE: Two supine KUB images of the abdomen are obtained. COMPARISON: CT abdomen and pelvis from yesterday. FINDINGS: Scattered gas is seen in non-distended small bowel loops. Gas, contrast, and fecal material is seen in non-distended colon. Diverticula in the left and sigmoid colon are redemonstrated. Scatte red pelvic phleboliths are redemonstrated. Some vascular calcification of aorta and left upper quadra nt branching vessels is redemonstrated. Multilevel spurring in the spine is again seen. Vascular calc ification extends into bilateral groin region. IMPRESSION: Persistent overall nonobstructive bowel gas pattern.
[2018-12-17] MEDS: INSULIN DETEMIR 100 UNIT/ML 10 ML VIAL SQ SCH (13:07)
[2018-12-17] MEDS: DARBEPOETIN ALFA 40 MCG/0.4 ML SYRINGE SQ SCH (14:08)
--- NOTE | 2018-12-17 14:22 | P.PN ---
Subjective Progress Note Date: 12/17/18 Principal diagnosis: Acute exacerbation of congestive heart failure He is seen today 12/17/2018 in follow-up on the selective care unit. He was transferred here from an extended care facility with altered mentation shortness of breath and inability to lay flat. The patient is a poor historian. He is currently sitting up in bed being assisted with lunch. He is maintaining O2 saturations in the mid 90s on 6 L high flow nasal cannula. He's been afebrile. Hemodynamically stable. Blood culture reveals no growth to date. White count 7.6. Hemoglobin 9.4. Creatinine 1.96. He remains on Lasix 40 mg IV every 8 hours. Remains on bronchodilators, antibiotics in the form of Zosyn and Levaquin. Objective - Vital Signs Vital signs: Vital Signs Temp 97.7 F 12/17/18 08:10 Pulse 99 12/17/18 12:05 Resp 18 12/17/18 12:05 BP 128/66 12/17/18 12:05 Pulse Ox 95 12/17/18 12:05 Intake & Output 12/16/18 12/17/18 12/17/18 18:59 06:59 18:59 Intake Total 2060 480 Output Total 2250 Balance 2060 -2250 480 Weight 95.254 kg Intake: Intake, IV Titration 260 Amount Piperacillin-Tazobactam 3 100 .375 gm In Sodium Chloride 0.9% 100 ml @ 25 mls/hr IVPB Q8H [facility] Rx#: [id number] Sodium Chloride 0.9% 1, 160 000 ml @ 20 mls/hr IV . Q24H [facility] Rx#:[id number] Oral 1800 480 Output: Urine 2250 Uretheral (Lamas) 600 Other: Voiding Method Diaper Indwelling Catheter Indwelling Catheter # Voids 1 1 - Exam GENERAL EXAM: Alert, appears comfortable in no apparent distress. On 6 L nasal cannula HEAD: Normocephalic. EYES: Normal reaction of pupils, equal size. NOSE: Clear with pink turbinates. THROAT: No erythema or exudates. NECK: No masses, no JVD. CHEST: No chest wall deformity. LUNGS: Equal air entry with crackles in the bilateral posterior bases. Diminished.. CVS: S1 and S2 normal with no audible murmur, regular rhythm. ABDOMEN: No hepatosplenomegaly, normal bowel sounds, no guarding or rigidity. SPINE: No scoliosis or deformity SKIN: No rashes CENTRAL NERVOUS SYSTEM: No focal deficits, tone is normal in all 4 extremities. EXTREMITIES: There is 1-2+ peripheral edema. No clubbing, no cyanosis. Peripheral pulses are intact. - Labs CBC & Chem 7: 12/17/18 05:29 12/17/18 05:29 Labs: Abnormal Lab Results - Last 24 Hours (Table) 12/16/18 12/16/18 12/17/18 Range/Units 16:36 22:47 05:29 RBC 2.87 L (4.30-5.90) m/uL Hgb 9.4 L (13.0-17.5) gm/dL Hct 30.3 L (39.0-53.0) % MCV 105.5 H (80.0-100.0) fL MCHC 30.9 L (31.0-37.0) g/dL Lymphocytes # 0.8 L (1.0-4.8) k/uL ABG pCO2 52 H (35-45) mmHg ABG pO2 134 H (83-108) mmHg ABG HCO3 33 H (21-25) mmol/L ABG Total CO2 34 H (19-24) mmol/L ABG O2 Saturation 99.6 H (94-97) % Potassium (3.5-5.1) mmol/L Carbon Dioxide (22-30) mmol/L BUN (9-20) mg/dL Creatinine (0.66-1.25) mg/dL Glucose (74-99) mg/dL POC Glucose (mg/dL) 113 H (75-99) mg/dL Calcium (8.4-10.2) mg/dL 12/17/18 12/17/18 Range/Units 05:29 12:02 RBC (4.30-5.90) m/uL Hgb (13.0-17.5) gm/dL Hct (39.0-53.0) % MCV (80.0-100.0) fL MCHC (31.0-37.0) g/dL Lymphocytes # (1.0-4.8) k/uL ABG pCO2 (35-45) mmHg ABG pO2 (83-108) mmHg ABG HCO3 (21-25) mmol/L ABG Total CO2 (19-24) mmol/L ABG O2 Saturation (94-97) % Potassium 3.4 L (3.5-5.1) mmol/L Carbon Dioxide 34 H (22-30) mmol/L BUN 30 H (9-20) mg/dL Creatinine 1.96 H (0.66-1.25) mg/dL Glucose 71 L (74-99) mg/dL POC Glucose (mg/dL) 155 H (75-99) mg/dL Calcium 8.1 L (8.4-10.2) mg/dL Microbiology - Last 24 Hours (Table) 12/15/18 00:13 Blood Culture - Preliminary Blood No Growth after 48 hours Assessment and Plan Assessment: Impression: #1 Acute on chronic hypoxemic respiratory failure secondary to acute exacerbation of diastolic congestive heart failure suspect a component of pneumonia. #2 Coronary artery disease with previous stent placement.. #3 Diabetes mellitus. #4 Gastroesophageal reflux disease. #5 Hyperlipidemia. #6 Hypertension. #7 Obstructive sleep apnea. #8 Hypothyroidism. #9 History of prostate disorder. #10 Macular degeneration. Plan: The patient was seen and evaluated by Dr. Marin. We'll continue the current treatment plan for now. He remains on antibiotics in the form of Zosyn and Levaquin. Continue bronchodilators. Continue diuretics. Anticoagulated with Eliquis. Increase his activity as tolerated. We'll continue to follow. I, the cosigning physician, performed a history & physical examination of the patient. Lungs sounds with crackles in the posterior bases, few scattered rhonchi, diminished. Maintaining good O2 saturations in the 90s on 6 L/m per nasal cannula. I discussed the assessment and plan of care with my nurse practitioner, Lilian Ibarra. I attest to the above note as dictated by her.
[2018-12-17 16:55] LABS: Glucose,Whole Blood 319 mg/dL (75-99)
[2018-12-17 18:00] LABS: Iron Saturation 19.51 (15.00-50.00)
[2018-12-17] MEDS: TAMSULOSIN 0.4 MG CAP.ER.24H PO SCH (21:29)
[2018-12-17] MEDS: ASPIRIN 81 MG PO SCH (21:29)
[2018-12-17] MEDS: MULTIVITAMINS, THERA 1 EACH TAB PO SCH (21:30)
[2018-12-17] MEDS: ATORVASTATIN 20 MG TAB PO SCH (21:30)
[2018-12-17] MEDS: CYANOCOBALAMIN 500 MCG TAB PO SCH (21:30)
[2018-12-17] MEDS: MELATONIN 3 MG TABLET PO SCH (21:30)
[2018-12-17 21:46] LABS: Glucose,Whole Blood 271 mg/dL (75-99)
--- NOTE | 2018-12-17 22:39 | P.PN ---
Subjective Patient is a 83-year-old male with a known history of diabetes type 2, hypertension, hyperlipidemia, history of AK, obstructive sleep apnea on CPAP, hypothyroidism, macular degeneration of bilateral eyes, coronary artery disease with stent placement history and anxiety/depression and schizophrenia who is currently staying at extended care facility since CVA in October 2018, was transferred to ER due to altered mental status. Patient also having shortness of breath. No fever or chills. Patient was also having right-sided abdominal rash. No nausea vomiting. Patient does eat with one-to-one feeding. No cough or sputum production. No aspiration as per staff. CT head showed cerebral atrophy and chronic small was ischemia. No change compared to old exam. There is some white matter hypodensity in the anterior right internal capsule consistent with old olecranon infarct. CT abdomen and pelvis showed bilateral pleural effusions and basilar pulmonary consolidation and atelectasis. Subcutaneous edema around the abdomen that could be related to congestive heart failure. There is probably small gallstones. Collect diverticulosis without diverticulitis. No acute abnormality within the abdominal pelvis. This patient is an 83-year-old man transferred here from skilled nursing to be evaluated for change in his mentation, change in the color of the skin to the right side of his abdomen, and possibly shortness of breath. The patient when I interview him does not give any complaints. He denies having pain anywhere. He is not otherwise able to give much in way history appearing to be having some dementia versus delirium. Chest x-ray showed right lower lobe infiltrate and atelectasis appears to be worse than old exam. No gross heart failure. EKG showed sinus bradycardia Patient has been on oxygen since admission to extended care [facility]. 12/16/2018 Patient is lying in bed, looks lethargic. He is alert awake and alert oriented to person and partially to time and place, he knows in the hospital but could not remember the name of the hospital, and he knew the month but not the ureter gait. He still dyspneic on 4 L oxygen via nasal cannula. He has dry cough but denies chest pain. Patient has right sided abdominal redness and warmth and periumbilical tenderness. He is saturating in the low 90s on 4 L via nasal cannula. No fever, no tachycardia and is breathing quietly at 16 BPM. Labs reviewed showing no leukocytosis. Anemia with hemoglobin stable around 8.6. His creatinine is stable at 1.8. Electrolytes within normal limits. 12/17/2018 pt became bradycardic in 40s and needed high flow oxygen yesterday and he was transferred to the select unit, pt still feels sick today , his heart rate improved to 80s and he still dyspeic although he feels a little better , he denies chest pain , he has dry cough. no abdominal pain . his rash is his abdomen is improved , he has harper catheter for urinary retention and he is on flomax already. cardiology team evaluated pt for acute D.CHF , pt to continue with lasix for now. 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 pt today feels depressed with suicidal ideation " i'd better be than like this " , psych consult is called and sitter at bed side CONSTITUTIONAL: No fever, no malaise, no fatigue. HEENT: No recent visual problems or hearing problems. Denied any sore throat. CARDIOVASCULAR: No orthopnea, PND, no palpitations, no syncope. PULMONARY: No shortness of breath, no cough, no hemoptysis. GASTROINTESTINAL: No diarrhea, no nausea, no vomiting, no abdominal pain. Normoactive bowel sounds. NEUROLOGICAL: No headaches, no weakness, no numbness. HEMATOLOGICAL: Denies any bleeding or petechiae. GENITOURINARY: Denies any burning micturition, frequency, or urgency. MUSCULOSKELETAL/RHEUMATOLOGICAL: Denies any joint pain, swelling, or any muscle pain. ENDOCRINE: Denies any polyuria or polydipsia. Medications reviewed and include: Tylenol, albuterol, Norvasc, Eliquis, aspirin , atenolol, Lipitor, bismuth, Wellbutrin, Celexa, vitamin B12, cyclosporine ophthalmic solution, Bentyl, Colace, Proscar, Lasix, hydralazine, Florence, NovoLog , Levemir insulin, lactulose, levofloxacin, levothyroxine, loratadine, Ativan, melatonin, multivitamin, oxybutynin, Protonix, Zosyn Objective - Vital Signs Vital signs: Vital Signs Temp 98.2 F 12/17/18 20:00 Pulse 60 12/17/18 20:52 Resp 18 12/17/18 20:00 BP 142/66 12/17/18 20:00 Pulse Ox 95 12/17/18 20:46 Intake & Output 12/17/18 12/17/18 12/18/18 06:59 18:59 06:59 Intake Total 480 Output Total 2250 600 600 Balance -2250 -120 -600 Weight 94.3 kg Intake: Oral 480 Output: Urine 2250 600 600 Uretheral (Harper) 600 Other: Voiding Method Indwelling Catheter Indwelling Catheter Indwelling Catheter # Voids 1 - Exam -GENERAL: The patient is alert and oriented x3, with partially to place and time , not in any acute distress. Generally weak HEENT: Pupils are round and equally reacting to light. EOMI. No scleral icterus. No conjunctival pallor. Normocephalic, atraumatic. No pharyngeal erythema. No thyromegaly. CARDIOVASCULAR: S1 and S2 present. No murmurs, rubs, or gallops. PULMONARY: Chest is clear to auscultation, no wheezing or crackles. ABDOMEN: Soft, nontender, nondistended, normoactive bowel sounds. No palpable organomegaly. MUSCULOSKELETAL: No joint swelling or deformity. EXTREMITIES: No cyanosis, clubbing, or pedal edema. NEUROLOGICAL: Gross neurological examination did not reveal any focal deficits. SKIN: No rashes. - Labs CBC & Chem 7: 12/17/18 05:29 12/17/18 05:29 Labs: Abnormal Lab Results - Last 24 Hours (Table) 12/16/18 12/17/18 12/17/18 Range/Units 22:47 05:29 05:29 RBC 2.87 L (4.30-5.90) m/uL Hgb 9.4 L (13.0-17.5) gm/dL Hct 30.3 L (39.0-53.0) % MCV 105.5 H (80.0-100.0) fL MCHC 30.9 L (31.0-37.0) g/dL Lymphocytes # 0.8 L (1.0-4.8) k/uL ABG pCO2 52 H (35-45) mmHg ABG pO2 134 H (83-108) mmHg ABG HCO3 33 H (21-25) mmol/L ABG Total CO2 34 H (19-24) mmol/L ABG O2 Saturation 99.6 H (94-97) % Potassium 3.4 L (3.5-5.1) mmol/L Carbon Dioxide 34 H (22-30) mmol/L BUN 30 H (9-20) mg/dL Creatinine 1.96 H (0.66-1.25) mg/dL Glucose 71 L (74-99) mg/dL POC Glucose (mg/dL) (75-99) mg/dL Calcium 8.1 L (8.4-10.2) mg/dL Iron (65-175) ug/dL TIBC (228-460) ug/dL 12/17/18 12/17/18 12/17/18 Range/Units 05: 12:02 16:53 RBC (4.30-5.90) m/uL Hgb (13.0-17.5) gm/dL Hct (39.0-53.0) % MCV (80.0-100.0) fL MCHC (31.0-37.0) g/dL Lymphocytes # (1.0-4.8) k/uL ABG pCO2 (35-45) mmHg ABG pO2 (83-108) mmHg ABG HCO3 (21-25) mmol/L ABG Total CO2 (19-24) mmol/L ABG O2 Saturation (94-97) % Potassium (3.5-5.1) mmol/L Carbon Dioxide (22-30) mmol/L BUN (9-20) mg/dL Creatinine (0.66-1.25) mg/dL Glucose (74-99) mg/dL POC Glucose (mg/dL) 155 H 319 H (75-99) mg/dL Calcium (8.4-10.2) mg/dL Iron 40 L (65-175) ug/dL TIBC 205 L (228-460) ug/dL 12/17/18 Range/Units 21:26 RBC (4.30-5.90) m/uL Hgb (13.0-17.5) gm/dL Hct (39.0-53.0) % MCV (80.0-100.0) fL MCHC (31.0-37.0) g/dL Lymphocytes # (1.0-4.8) k/uL ABG pCO2 (35-45) mmHg ABG pO2 (83-108) mmHg ABG HCO3 (21-25) mmol/L ABG Total CO2 (19-24) mmol/L ABG O2 Saturation (94-97) % Potassium (3.5-5.1) mmol/L Carbon Dioxide (22-30) mmol/L BUN (9-20) mg/dL Creatinine (0.66-1.25) mg/dL Glucose (74-99) mg/dL POC Glucose (mg/dL) 271 H (75-99) mg/dL Calcium (8.4-10.2) mg/dL Iron (65-175) ug/dL TIBC (228-460) ug/dL Microbiology - Last 24 Hours (Table) 12/15/18 00:13 Blood Culture - Preliminary Blood No Growth after 48 hours Assessment and Plan Plan: Assessment: Acute right lower lobe infiltrates/pneumonia/HCAP Bilateral small pleural effusion possible Right abdominal cellulitis depression with suicidal ideation chronic kidney disease stage 3 Altered mental status possible metabolic encephalopathy, improving Diabetes type 2 insulin-dependent Recent history of CVA/Lacunar infarct. Coronary artery disease history of stent placement Hypertension Hyperlipidemia History of AK History of thyroid cancer Obstructive sleep apnea not using CPAP Macular degeneration of bilateral ice Anxiety depression and schizophrenia Medical debility currently attacks and care facility Previous history of smoking Patient is on anticoagulation with Apixaban. Etiology not sure. Plan: Patient will be continued on broad-spectrum antibiotics in the form of Levaquin and Zosyn. cardiology and [facility] and suicidal precaution. Continue with home medications and insulin dosing. Oxygen therapy and follow up closely. Currently the current management and further recommendations based on the clinical course. Prognosis is guarded with multiple medical problems and comorbid conditions.
[2018-12-18 05:23] LABS: Glucose,Whole Blood 184 mg/dL (75-99)
[2018-12-18 06:14] LABS: Basophils % (A) 0 %; Eosinophils # (A) 0.1 k/uL (0-0.7); Eosinophils % (A) 1 %; HCT 28.9 % (39.0-53.0); HGB 8.9 gm/dL (13.0-17.5); Hypochromasia Moderate; Lymphocytes # (A) 1.2 k/uL (1.0-4.8); Lymphocytes % (A) 14 %; MCH 32.4 pg (25.0-35.0); MCHC 30.7 g/dL (31.0-37.0); MCV 105.7 fL (80.0-100.0); Macrocytosis Moderate; Mean Platelet Volume 7.3; Monocytes # (A) 0.5 k/uL (0-1.0); Monocytes % (A) 6 %; Neutrophils # (A) 6.6 k/uL (1.3-7.7); Neutrophils % (A) 77 %; Platelet Count 209 k/uL (150-450); RBC 2.73 m/uL (4.30-5.90); RDW 15.4 % (11.5-15.5); WBC 8.7 k/uL (3.8-10.6)
[2018-12-18] MEDS: PIPERACILLIN-TAZOBACTAM 3.375 GM in SODIUM CHLORIDE 0.9% 100 ML IVPB SCH ×3 (06:15→21:56)
[2018-12-18] MEDS: PANTOPRAZOLE 40 MG TABLET PO SCH (06:17)
[2018-12-18] MEDS: LEVOTHYROXINE 88 MCG TAB PO SCH (06:17)
[2018-12-18] MEDS: INSULIN ASPART 100 UNIT/ML 1 ML 10 ML VIAL SQ SCH ×3 (06:18→16:06)
[2018-12-18 06:24] LABS: Calcium 7.9 mg/dL (8.4-10.2); Magnesium 2.1 mg/dL (1.6-2.3); Potassium 3.7 mmol/L (3.5-5.1)
[2018-12-18] MEDS: IPRATROPIUM-ALBUTEROL 3 ML NEB INHALATION SCH ×4 (08:26→20:37)
[2018-12-18] MEDS: FUROSEMIDE 10 MG/ML 4 ML VIAL IV SCH (08:33)
[2018-12-18] MEDS: buPROPion 75 MG TAB PO SCH (08:34)
[2018-12-18] MEDS: DOCUSATE 100 MG CAP PO SCH ×2 (08:34→21:55)
[2018-12-18] MEDS: OXYBUTYNIN CHLORIDE 5 MG TAB PO SCH ×2 (08:34→21:56)
[2018-12-18] MEDS: APIXABAN 2.5 MG TABLET PO SCH ×2 (08:34→21:54)
[2018-12-18] MEDS: ATENOLOL 25 MG TAB PO SCH (08:34)
[2018-12-18] MEDS: FINASTERIDE 5 MG TAB PO SCH (08:34)
[2018-12-18] MEDS: LORATADINE 10 MG TAB PO SCH (08:34)
[2018-12-18] MEDS: LORazepam 0.5 MG TAB PO SCH ×3 (08:34→22:44)
[2018-12-18] MEDS: hydrALAZINE HCL 50 MG TAB PO SCH ×3 (08:34→21:56)
[2018-12-18] MEDS: VIT A,C & E-LUTEIN-MINERALS 1 EACH TAB PO SCH ×2 (08:35→21:56)
[2018-12-18] MEDS: amLODIPine 5 MG TAB PO SCH ×2 (08:35→21:54)
[2018-12-18] MEDS: cycloSPORINE 0.05% OPHTH 0.4 ML DROPERETTE BOTH EYES SCH ×2 (08:35→21:55)
[2018-12-18] MEDS: INSULIN DETEMIR 100 UNIT/ML 10 ML VIAL SQ SCH (08:46)
--- NOTE | 2018-12-18 10:55 | P.PN ---
Subjective Patient is seen in follow-up for acute kidney injury on chronic kidney disease. 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 Recently his creatinine has been in the range of 1.8-2. Creatinine is up to 2.36 today. He currently has a Lamas catheter in place for urinary retention. He is nonoliguric. Working with physical therapy. Maintain on Lasix 40 mg IV 3 times daily. Vital signs are stable. General: The patient appeared well nourished and normally developed. HEENT: Head exam is unremarkable. Neck is without jugular venous distension. LUNGS: Lungs are clear to auscultation and percussion. Breath sounds decreased. HEART: Rate and Rhythm are regular. First and second heart sounds normal. No murmurs, rubs or gallops. ABDOMEN: Abdominal exam reveals normal bowel sounds. Non-tender and non- distended. No evidence of peritonitis. EXTREMITITES: No clubbing, cyanosis, or edema. Objective - Vital Signs Vital signs: Vital Signs Temp 97.6 F 12/18/18 08:00 Pulse 56 L 12/18/18 08:38 Resp 20 12/18/18 08:00 BP 163/69 12/18/18 08:00 Pulse Ox 98 12/18/18 08:00 Intake & Output 12/17/18 12/18/18 12/18/18 18:59 06:59 18:59 Intake Total 480 150 Output Total 600 1550 Balance -120 -1400 Weight 94.3 kg 83 kg Intake: Intake, IV Titration 150 Amount Piperacillin-Tazobactam 3 150 .375 gm In Sodium Chloride 0.9% 100 ml @ 25 mls/hr IVPB Q8H [facility] Rx#: [id number] Oral 480 Output: Urine 600 1550 Other: Voiding Method Indwelling Catheter Indwelling Catheter - Labs CBC & Chem 7: 12/18/18 05:15 12/18/18 05:15 Labs: Abnormal Lab Results - Last 24 Hours (Table) 12/17/18 12/17/18 12/17/18 Range/Units 05:29 12:02 16:53 RBC (4.30-5.90) m/uL Hgb (13.0-17.5) gm/dL Hct (39.0-53.0) % MCV (80.0-100.0) fL MCHC (31.0-37.0) g/dL Carbon Dioxide (22-30) mmol/L BUN (9-20) mg/dL Creatinine (0.66-1.25) mg/dL Glucose (74-99) mg/dL POC Glucose (mg/dL) 155 H 319 H (75-99) mg/dL Calcium (8.4-10.2) mg/dL Iron 40 L (65-175) ug/dL TIBC 205 L (228-460) ug/dL 12/17/18 12/18/18 12/18/18 Range/Units 21:26 05:00 05:15 RBC 2.73 L (4.30-5.90) m/uL Hgb 8.9 L (13.0-17.5) gm/dL Hct 28.9 L (39.0-53.0) % MCV 105.7 H (80.0-100.0) fL MCHC 30.7 L (31.0-37.0) g/dL Carbon Dioxide (22-30) mmol/L BUN (9-20) mg/dL Creatinine (0.66-1.25) mg/dL Glucose (74-99) mg/dL POC Glucose (mg/dL) 271 H 184 H (75-99) mg/dL Calcium (8.4-10.2) mg/dL Iron (65-175) ug/dL TIBC (228-460) ug/dL 12/18/18 Range/Units 05:15 RBC (4.30-5.90) m/uL Hgb (13.0-17.5) gm/dL Hct (39.0-53.0) % MCV (80.0-100.0) fL MCHC (31.0-37.0) g/dL Carbon Dioxide 35 H (22-30) mmol/L BUN 39 H (9-20) mg/dL Creatinine 2.36 H (0.66-1.25) mg/dL Glucose 156 H (74-99) mg/dL POC Glucose (mg/dL) (75-99) mg/dL Calcium 7.9 L (8.4-10.2) mg/dL Iron (65-175) ug/dL TIBC (228-460) ug/dL Microbiology - Last 24 Hours (Table) 12/15/18 00:13 Blood Culture - Preliminary Blood No Growth after 72 hours Assessment and Plan Plan: Assessment: 1. 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 Recently creatinine has been in the range of 1.8-2. 2. History of urinary retention. Currently has a Lamas catheter in place. Maintained on Flomax. 3. Hypokalemia secondary to diuresis. Magnesium replete. Improved post with placement. 4. Volume overload. Better. 5. Diastolic CHF. 6. Pneumonia. Maintained on antibiotics. 7. Recent CVA. 8. Hypertension with chronic kidney disease. 9. Diabetes mellitus. 10. Acute hypoxic respiratory failure secondary to pneumonia and volume overload. 11. Anemia of chronic kidney disease maintained on Aranesp. Iron deficiency noted. 12. Acute kidney injury mostly prerenal secondary to diuresis. Creatinine 2.36 today. Plan: I for change Lasix to 40 mg orally once daily. Avoid nephrotoxins. Repeat electrolytes in the morning. Hold off on IV iron due to infection.
[2018-12-18 11:09] LABS: Glucose,Whole Blood 278 mg/dL (75-99)
--- NOTE | 2018-12-18 11:19 | P.PN ---
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 Patient also having shortness of breath. No fever or chills. Patient was also having right-sided abdominal rash. No nausea vomiting. Patient does eat with one-to-one feeding. No cough or sputum production. No aspiration as per staff. CT head showed cerebral atrophy and chronic small was ischemia. No change compared to old exam. There is some white matter hypodensity in the anterior right internal capsule consistent with old olecranon infarct. CT abdomen and pelvis showed bilateral pleural effusions and basilar pulmonary consolidation and atelectasis. Subcutaneous edema around the abdomen that could be related to congestive heart failure. There is probably small gallstones. Collect diverticulosis without diverticulitis. No acute abnormality within the abdominal pelvis. This patient is an 83-year-old man transferred here from shelter to be evaluated for change in his mentation, change in the color of the skin to the right side of his abdomen, and possibly shortness of breath. The patient when I interview him does not give any complaints. He denies having pain anywhere. He is not otherwise able to give much in way history appearing to be having some dementia versus delirium. Chest x-ray showed right lower lobe infiltrate and atelectasis appears to be worse than old exam. No gross heart failure. EKG showed sinus bradycardia Patient has been on oxygen since admission to extended care [facility]. 12/16/2018 Patient is lying in bed, looks lethargic. He is alert awake and alert oriented to person and partially to time and place, he knows in the hospital but could not remember the name of the hospital, and he knew the month but not the ureter gait. He still dyspneic on 4 L oxygen via nasal cannula. He has dry cough but denies chest pain. Patient has right sided abdominal redness and warmth and periumbilical tenderness. He is saturating in the low 90s on 4 L via nasal cannula. No fever, no tachycardia and is breathing quietly at 16 BPM. Labs reviewed showing no leukocytosis. Anemia with hemoglobin stable around 8.6. His creatinine is stable at 1.8. Electrolytes within normal limits. 12/17/2018 pt became bradycardic in 40s and needed high flow oxygen yesterday and he was transferred to the select unit, pt still feels sick today , his heart rate improved to 80s and he still dyspeic although he feels a little better , he denies chest pain , he has dry cough. no abdominal pain . his rash is his abdomen is improved , he has harper catheter for urinary retention and he is on flomax already. cardiology team evaluated pt for acute D.CHF , pt to continue with lasix for now. molded frames assembler evaluation is appreciated , pulmonary team are following the pt as well while he is maintained on antibiotic. pt today feels depressed with suicidal ideation " i'd better be than like this " , psych consult is called and sitter at bed side 12/01/2018 Patient was sitting in chair less dyspneic and denying chest pain. No abdominal pain or nausea vomiting. Tolerating diet well. Heart rate at 56. Blood pressure 163. And saturating 98% on 4 L oxygen. Labs reviewed showing the clip C of 8.7K, hemoglobin 8.9. Creatinine went up to 2.36. Patient has Harper catheter for his urinary retention. He is on Lasix 40 mg IV 3 times a day. Press Worker Helper team are following the patient recommended to change Lasix to 40 mg orally once daily. Sitter at bedside. Patient looks less depressed today, psychiatric evaluation is pending regarding his suicidal ideation. He continued to be on Levaquin and Zosyn for his pneumonia. He is anticoagulated with Eliquis 2.5 mg. CONSTITUTIONAL: No fever, no malaise, no fatigue. HEENT: No recent visual problems or hearing problems. Denied any sore throat. CARDIOVASCULAR: No orthopnea, PND, no palpitations, no syncope. PULMONARY: No shortness of breath, no cough, no hemoptysis. GASTROINTESTINAL: No diarrhea, no nausea, no vomiting, no abdominal pain. Normoactive bowel sounds. NEUROLOGICAL: No headaches, no weakness, no numbness. HEMATOLOGICAL: Denies any bleeding or petechiae. GENITOURINARY: Denies any burning micturition, frequency, or urgency. MUSCULOSKELETAL/RHEUMATOLOGICAL: Denies any joint pain, swelling, or any muscle pain. ENDOCRINE: Denies any polyuria or polydipsia. Medications reviewed and include: Tylenol, albuterol, Norvasc, Eliquis, aspirin , atenolol, Lipitor, bismuth, Wellbutrin, Celexa, vitamin B12, cyclosporine ophthalmic solution, Bentyl, Colace, Proscar, Lasix, hydralazine, [place], NovoLog , Levemir insulin, lactulose, levofloxacin, levothyroxine, loratadine, Ativan, melatonin, multivitamin, oxybutynin, Protonix, Zosyn Objective - Vital Signs Vital signs: Vital Signs Temp 97.6 F 12/18/18 08:00 Pulse 56 L 12/18/18 08:38 Resp 20 12/18/18 08:00 BP 163/69 12/18/18 08:00 Pulse Ox 98 12/18/18 08:00 Intake & Output 12/17/18 12/18/18 12/18/18 18:59 06:59 18:59 Intake Total 480 150 Output Total 600 1550 Balance -120 -1400 Weight 94.3 kg 83 kg Intake: Intake, IV Titration 150 Amount Piperacillin-Tazobactam 3 150 .375 gm In Sodium Chloride 0.9% 100 ml @ 25 mls/hr IVPB Q8H [facility] Rx#: [id number] Oral 480 Output: Urine 600 1550 Other: Voiding Method Indwelling Catheter Indwelling Catheter - Exam -GENERAL: The patient is alert and oriented x3, with partially to place and time , not in any acute distress. Generally weak HEENT: Pupils are round and equally reacting to light. EOMI. No scleral icterus. No conjunctival pallor. Normocephalic, atraumatic. No pharyngeal erythema. No thyromegaly. CARDIOVASCULAR: S1 and S2 present. No murmurs, rubs, or gallops. PULMONARY: Chest is clear to auscultation, no wheezing or crackles. ABDOMEN: Soft, nontender, nondistended, normoactive bowel sounds. No palpable organomegaly. MUSCULOSKELETAL: No joint swelling or deformity. EXTREMITIES: No cyanosis, clubbing, or pedal edema. NEUROLOGICAL: Gross neurological examination did not reveal any focal deficits. SKIN: No rashes. - Labs CBC & Chem 7: 12/18/18 05:15 12/18/18 05:15 Labs: Abnormal Lab Results - Last 24 Hours (Table) 12/17/18 12/17/18 12/17/18 Range/Units 05:29 12:02 16:53 RBC (4.30-5.90) m/uL Hgb (13.0-17.5) gm/dL Hct (39.0-53.0) % MCV (80.0-100.0) fL MCHC (31.0-37.0) g/dL Carbon Dioxide (22-30) mmol/L BUN (9-20) mg/dL Creatinine (0.66-1.25) mg/dL Glucose (74-99) mg/dL POC Glucose (mg/dL) 155 H 319 H (75-99) mg/dL Calcium (8.4-10.2) mg/dL Iron 40 L (65-175) ug/dL TIBC 205 L (228-460) ug/dL 12/17/18 12/18/18 12/18/18 Range/Units 21:26 05:00 05:15 RBC 2.73 L (4.30-5.90) m/uL Hgb 8.9 L (13.0-17.5) gm/dL Hct 28.9 L (39.0-53.0) % MCV 105.7 H (80.0-100.0) fL MCHC 30.7 L (31.0-37.0) g/dL Carbon Dioxide (22-30) mmol/L BUN (9-20) mg/dL Creatinine (0.66-1.25) mg/dL Glucose (74-99) mg/dL POC Glucose (mg/dL) 271 H 184 H (75-99) mg/dL Calcium (8.4-10.2) mg/dL Iron (65-175) ug/dL TIBC (228-460) ug/dL 12/18/18 12/18/18 Range/Units 05:15 11:08 RBC (4.30-5.90) m/uL Hgb (13.0-17.5) gm/dL Hct (39.0-53.0) % MCV (80.0-100.0) fL MCHC (31.0-37.0) g/dL Carbon Dioxide 35 H (22-30) mmol/L BUN 39 H (9-20) mg/dL Creatinine 2.36 H (0.66-1.25) mg/dL Glucose 156 H (74-99) mg/dL POC Glucose (mg/dL) 278 H (75-99) mg/dL Calcium 7.9 L (8.4-10.2) mg/dL Iron (65-175) ug/dL TIBC (228-460) ug/dL Microbiology - Last 24 Hours (Table) 12/15/18 00:13 Blood Culture - Preliminary Blood No Growth after 72 hours Assessment and Plan Plan: Assessment: Acute right lower lobe infiltrates/pneumonia/HCAP Bilateral small pleural effusion possible Right abdominal cellulitis depression with suicidal ideation chronic kidney disease stage 3 Altered mental status possible metabolic encephalopathy, improving Diabetes type 2 insulin-dependent Recent history of CVA/Lacunar infarct. Coronary artery disease history of stent placement Hypertension Hyperlipidemia History of ND History of thyroid cancer Obstructive sleep apnea not using CPAP Macular degeneration of bilateral ice Anxiety depression and schizophrenia Medical debility currently attacks and care facility Previous history of smoking Patient is on anticoagulation with Apixaban. Etiology not sure. Plan: Patient will be continued on broad-spectrum antibiotics in the form of Levaquin and Zosyn. cardiology and pulmonary consults. pscy consult and suicidal precaution. Continue with home medications and insulin dosing. Oxygen therapy and follow up closely. Currently the current management and further recommendations based on the clinical course. Prognosis is guarded with multiple medical problems and comorbid conditions.
--- NOTE | 2018-12-18 13:22 | P.CN ---
Psychiatric Consult - . Consult date: 12/18/18 Consult:: 12/18/18 09:36 Suicide precautions?? Assessment and Plan Assessment: Patient is a 83-year-old male with a known history of diabetes type 2, hypertension, hyperlipidemia, history of [place], obstructive sleep apnea on CPAP, hypothyroidism, macular degeneration of bilateral eyes, coronary artery disease with stent placement history and anxiety/depression and schizophrenia who is currently staying at extended care facility since CVA in October 2018, was transferred to ER due to altered mental status. Patient also having shortness of breath. No fever or chills. Patient was also having right-sided abdominal rash. No nausea vomiting. Patient does eat with one-to-one feeding. No cough or sputum production. No aspiration as per staff. CT head showed cerebral atrophy and chronic small was ischemia. No change compared to old exam. There is some white matter hypodensity in the anterior right internal capsule consistent with old olecranon infarct. CT abdomen and pelvis showed bilateral pleural effusions and basilar pulmonary consolidation and atelectasis. Subcutaneous edema around the abdomen that could be related to congestive heart failure. There is probably small gallstones. Collect diverticulosis without diverticulitis. No acute abnormality within the abdominal pelvis. This patient is an 83-year-old man transferred here from retirement to be evaluated for change in his mentation, change in the color of the skin to the right side of his abdomen, and possibly shortness of breath. The patient when I interview him does not give any complaints. He denies having pain anywhere. He is not otherwise able to give much in way history appearing to be having some dementia versus delirium. Chest x-ray showed right lower lobe infiltrate and atelectasis appears to be worse than old exam. No gross heart failure. EKG showed sinus bradycardia Patient has been on oxygen since admission to [facility]. Past Medical History Past Medical History: Coronary Artery Disease (CAD), Cancer, Diabetes Mellitus, GERD/Reflux, Hyperlipidemia, Hypertension, Myocardial Infarction ([place]), Pneumonia , Prostate Disorder, Sleep Apnea/CPAP/BIPAP, Thyroid Disorder Additional Past Medical History / Comment(s): no CPAP used, hiatal hernia, hx thyroid cancer, macular degeneration danielle eyes Last Myocardial Infarction Date:: 1999 History of Any Multi-Drug Resistant Organisms: None Reported Past Surgical History: Heart Catheterization With Stent, Joint Replacement Additional Past Surgical History / Comment(s): left knee replacement, danielle cataracts, thyroidectomy Past Anesthesia/Blood Transfusion Reactions: No Reported Reaction Additional Past Anesthesia/Blood Transfusion Reaction / Comment(s): clausterphobia -"uses open mri" Date of Last Stent Placement:: 1999 Past Psychological History: Anxiety, Depression, Schizophrenia Additional Psychological History / Comment(s): Pt currently is staying at [facility] for rehab since 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 They are getting him up with walker and he just started using the bars. Pt also has been on oxygen since getting to rehab. He no longer drives, family can take him to appts. Smoking Status: Former smoker Past Alcohol Use History: None Reported Additional Past Alcohol Use History / Comment(s): started smoking 1952 and quit 1993 Past Drug Use History: None Reported - Past Family History Father Family Medical History: Cancer Additional Family Medical History / Comment(s): Father had lung cancer and colorectal cancer. He smoked as a younger man. Mother Family Medical History: Cancer Additional Family Medical History / Comment(s): Mother had lung cancer. She was a lifelong smoker Medications and Allergies Home Medications Medication Instructions Recorded Confirmed Type Citalopram Hydrobromide 40 mg PO HS 09/29/14 12/15/18 History [Citalopram HBr] Levothyroxine Sodium [Synthroid] 88 mcg PO DAILY 09/29/14 12/15/18 History Multivitamins, Thera [Multivitamin 1 tab PO HS 09/29/14 12/15/18 History (formulary)] Omeprazole [PriLOSEC] 20 mg PO BID 09/29/14 12/15/18 History Simvastatin [Zocor] 40 mg PO HS 09/29/14 12/15/18 History Cyanocobalamin [Vitamin B-12] 500 mcg PO HS 11/07/18 12/15/18 History Tamsulosin HCl [Flomax] 0.4 mg PO HS@199911/07/18 12/15/18 History Vit C/E/Zn/Coppr/Lutein/Zeaxan 1 cap PO BID 11/07/18 12/15/18 History [Preservision Areds 2 Softgel] Apixaban [Eliquis] 2.5 mg PO BID tablet 11/18/18 12/15/18 Rx Docusate [Colace] 100 mg PO BID cap 11/18/18 12/15/18 Rx Insulin Aspart [NovoLOG 5 unit SQ AC-TID vial 11/18/18 12/15/18 Rx (formulary)] risperiDONE [RisperDAL] 1 mg PO BID 3 Days #6 tab 11/18/18 12/15/18 Rx Acetaminophen [Tylenol] 650 mg PO Q4H PRN 11/26/18 12/15/18 History Bismuth Subsalicylate [Kaopectate] 262 mg PO Q4H 11/26/18 12/15/18 History Loratadine [Claritin] 10 mg PO DAILY 11/26/18 12/15/18 History Melatonin 3 mg PO HS 11/26/18 12/15/18 History buPROPion [Wellbutrin] 150 mg PO DAILY 11/26/18 12/15/18 History Atenolol [Tenormin] 50 mg PO DAILY #0 tab 12/06/18 12/15/18 Rx Dicyclomine [Bentyl] 10 mg PO QID cap 12/06/18 12/15/18 Rx Ferrous Sulfate [Iron (65 MG 325 mg PO BID tab 12/06/18 12/15/18 Rx Elemental)] Finasteride [Proscar] 5 mg PO DAILY tab 12/06/18 12/15/18 Rx hydrALAZINE HCL [Apresoline] 50 mg PO TID tab 12/06/18 12/15/18 Rx Oxybutynin Chloride [Ditropan] 2.5 mg PO BID #0 tab 12/09/18 12/15/18 Rx Aspirin 81 mg PO HS 12/15/18 12/15/18 History Furosemide [Lasix] 20 mg PO DAILY 12/15/18 12/15/18 History [place] 30 ml PO Q6H PRN 12/15/18 12/15/18 History Insulin Aspart [NovoLOG See Protocol SQ ACHS 12/15/18 12/15/18 History (formulary)] Insulin Detemir [Levemir] 15 unit SQ DAILY 12/15/18 12/15/18 History Ipratropium/Albuterol Sulfate 1 puff INHALATION RT-QID 12/15/18 12/15/18 History [Combivent Respimat Inhaler] LORazepam [Ativan] 1 mg PO Q8H 12/15/18 12/15/18 History Lactulose [Cephulac] 20 gm PO TID PRN 12/15/18 12/15/18 History amLODIPine [Norvasc] 5 mg PO BID 12/15/18 12/15/18 History cycloSPORINE [Restasis] 1 drop BOTH EYES BID 12/15/18 12/15/18 History predniSONE See Taper PO DAILY 12/15/18 12/15/18 History Allergies Allergy/AdvReac Type Severity Reaction Status Date / Time No Known Allergies Allergy Verified 12/15/18 07:14 Mental Status Examination - General Appearance: [ casual, appears stated age Speech/Language: [slow, soft] Attitude/Behavior: [cooperative Mood: [ depressed 2 out of 10, anxious 2 out of 10, fearful, hopelessness] Affect: [Reactive] Orientation: [time, person, place situation] Thought Content: [Within normal Risk Factors: [Denies suicidal (ideations, plan), not and/or Homicidal ( ideations, plan), other] Perception: [ Denies hallucinations Thought Processes: [goal-oriented Concentration/Attention Span: [wnl] [Per observation and interview with the patient] Recent Memory: [wnl] [ 2 out of 3 in 3 minutes] Remote Memory: [wnl [past events, as related history] Intelligence: [ average] [based on history, based on vocabulary, syntax, grammar , and content] Judgement: [ Good] [per patient's behavior/history of present illness] Insight: [ Good] [understanding severity of illness/history of present illness Psychiatric impression: Major depressive disorder without psychotic features Psychiatric recommendations: He is currently not suicidal nor homicidal nor does he suffer from any auditory or visual hallucinations but denies any today. When medically stable may move onto physical rehab unit for further treatment. He does not need a sitter and he is not appropriate for inpatient psychiatry unit Thank you for the consult Emre Espana D.O. PhD ] (1) Major depressive disorder with psychotic features Current Visit: No Status: Acute Priority: Low Code(s): F32.3 - MAJOR DEPRESSV DISORD, SINGLE EPSD, SEVERE W PSYCH FEATURES SNOMED Code(s): 91784904 Time with Patient: Less than 30
--- NOTE | 2018-12-18 15:17 | P.PN ---
Subjective Progress Note Date: 12/18/18 Principal diagnosis: Acute exacerbation of congestive heart failure The patient is seen today 12/18/2018 in follow-up on the selective care unit. He is currently sitting up in a chair at the bedside. He is awake and alert in no acute distress. He is maintaining O2 saturations in the 90s now on 3 L high flow nasal cannula. He's been afebrile. Hemodynamically stable. Blood culture reveals no growth. White count 8.7. Hemoglobin 8.9. Creatinine 2.36. He remains on bronchodilators, Zosyn, Levaquin, diuretics, Eliquis. Objective - Vital Signs Vital signs: Vital Signs Temp 97.9 F 12/18/18 12:00 Pulse 56 L 12/18/18 13:04 Resp 18 12/18/18 12:00 BP 115/55 12/18/18 12:00 Pulse Ox 96 12/18/18 12:00 Intake & Output 12/17/18 12/18/18 12/18/18 18:59 06:59 18:59 Intake Total 480 150 Output Total 600 1550 Balance -120 -1400 Weight 94.3 kg 83 kg Intake: Intake, IV Titration 150 Amount Piperacillin-Tazobactam 3 150 .375 gm In Sodium Chloride 0.9% 100 ml @ 25 mls/hr IVPB Q8H [facility] Rx#: [id number] Oral 480 Output: Urine 600 1550 Other: Voiding Method Indwelling Catheter Indwelling Catheter Indwelling Catheter - Exam GENERAL EXAM: Alert, appears comfortable in no apparent distress. On 3 L nasal cannula HEAD: Normocephalic. EYES: Normal reaction of pupils, equal size. NOSE: Clear with pink turbinates. THROAT: No erythema or exudates. NECK: No masses, no JVD. CHEST: No chest wall deformity. LUNGS: Equal air entry with crackles in the bilateral posterior bases. Diminished.. CVS: S1 and S2 normal with no audible murmur, regular rhythm. ABDOMEN: No hepatosplenomegaly, normal bowel sounds, no guarding or rigidity. SPINE: No scoliosis or deformity SKIN: No rashes CENTRAL NERVOUS SYSTEM: No focal deficits, tone is normal in all 4 extremities. EXTREMITIES: There is 1-2+ peripheral edema. No clubbing, no cyanosis. Peripheral pulses are intact. - Labs CBC & Chem 7: 12/18/18 05:15 12/18/18 05:15 Labs: Abnormal Lab Results - Last 24 Hours (Table) 12/17/18 12/17/18 12/17/18 Range/Units 05:29 16:53 21:26 RBC (4.30-5.90) m/uL Hgb (13.0-17.5) gm/dL Hct (39.0-53.0) % MCV (80.0-100.0) fL MCHC (31.0-37.0) g/dL Carbon Dioxide (22-30) mmol/L BUN (9-20) mg/dL Creatinine (0.66-1.25) mg/dL Glucose (74-99) mg/dL POC Glucose (mg/dL) 319 H 271 H (75-99) mg/dL Calcium (8.4-10.2) mg/dL Iron 40 L (65-175) ug/dL TIBC 205 L (228-460) ug/dL 12/18/18 12/18/18 12/18/18 Range/Units 05:00 05:15 05:15 RBC 2.73 L (4.30-5.90) m/uL Hgb 8.9 L (13.0-17.5) gm/dL Hct 28.9 L (39.0-53.0) % MCV 105.7 H (80.0-100.0) fL MCHC 30.7 L (31.0-37.0) g/dL Carbon Dioxide 35 H (22-30) mmol/L BUN 39 H (9-20) mg/dL Creatinine 2.36 H (0.66-1.25) mg/dL Glucose 156 H (74-99) mg/dL POC Glucose (mg/dL) 184 H (75-99) mg/dL Calcium 7.9 L (8.4-10.2) mg/dL Iron (65-175) ug/dL TIBC (228-460) ug/dL 12/18/18 Range/Units 11:08 RBC (4.30-5.90) m/uL Hgb (13.0-17.5) gm/dL Hct (39.0-53.0) % MCV (80.0-100.0) fL MCHC (31.0-37.0) g/dL Carbon Dioxide (22-30) mmol/L BUN (9-20) mg/dL Creatinine (0.66-1.25) mg/dL Glucose (74-99) mg/dL POC Glucose (mg/dL) 278 H (75-99) mg/dL Calcium (8.4-10.2) mg/dL Iron (65-175) ug/dL TIBC (228-460) ug/dL Microbiology - Last 24 Hours (Table) 12/15/18 00:13 Blood Culture - Preliminary Blood No Growth after 72 hours Assessment and Plan Assessment: Impression: #1 Acute on chronic hypoxemic respiratory failure secondary to acute exacerbation of diastolic congestive heart failure suspect a component of pneumonia. Oxygen requirements improving. #2 Coronary artery disease with previous stent placement.. #3 Diabetes mellitus. #4 Gastroesophageal reflux disease. #5 Hyperlipidemia. #6 Hypertension. #7 Obstructive sleep apnea. #8 Hypothyroidism. #9 History of prostate disorder. #10 Macular degeneration. Plan: The patient was seen and evaluated by Dr. Marin. He is currently stable from the pulmonary standpoint. He remains on antibiotics in the form of Zosyn and Levaquin. Continue bronchodilators. Continue diuretics. Anticoagulated with Eliquis. Increase his activity as tolerated. We'll continue to follow. I, the cosigning physician, performed a history & physical examination of the patient. Lungs sounds with crackles in the posterior bases, few scattered rhonchi, diminished. Maintaining good O2 saturations in the 90s on 3 L/m per nasal cannula. I discussed the assessment and plan of care with my nurse practitioner, Lilian Ibarra. I attest to the above note as dictated by her.
[2018-12-18 16:04] LABS: Glucose,Whole Blood 191 mg/dL (75-99)
[2018-12-18 20:59] LABS: Glucose,Whole Blood 301 mg/dL (75-99)
[2018-12-18] MEDS ORDERED: INSULIN ASPART 100 UNIT/ML 1 ML 10 ML VIAL SQ ONE (21:23)
[2018-12-18] MEDS: TAMSULOSIN 0.4 MG CAP.ER.24H PO SCH (21:54)
[2018-12-18] MEDS: ASPIRIN 81 MG PO SCH (21:54)
[2018-12-18] MEDS: CITALOPRAM HYDROBROMIDE 20 MG TAB PO SCH (21:55)
[2018-12-18] MEDS: ATORVASTATIN 20 MG TAB PO SCH (21:55)
[2018-12-18] MEDS: MELATONIN 3 MG TABLET PO SCH (21:55)
[2018-12-18] MEDS: CYANOCOBALAMIN 500 MCG TAB PO SCH (21:56)
[2018-12-18] MEDS: MULTIVITAMINS, THERA 1 EACH TAB PO SCH (21:56)
[2018-12-19] MEDS ORDERED: IPRATROPIUM-ALBUTEROL 3 ML NEB INHALATION PRN (00:42)
[2018-12-19 04:16] LABS: Hemoglobin A1C 6.6 % (4.0-6.0)
[2018-12-19 06:04] LABS: Glucose,Whole Blood 227 mg/dL (75-99)
[2018-12-19] MEDS: PIPERACILLIN-TAZOBACTAM 3.375 GM in SODIUM CHLORIDE 0.9% 100 ML IVPB SCH ×3 (06:26→23:23)
[2018-12-19] MEDS: PANTOPRAZOLE 40 MG TABLET PO SCH (06:26)
[2018-12-19] MEDS: LEVOTHYROXINE 88 MCG TAB PO SCH (06:26)
[2018-12-19] MEDS: INSULIN ASPART 100 UNIT/ML 1 ML 10 ML VIAL SQ SCH ×7 (06:27→21:16)
[2018-12-19] MEDS: guaiFENesin 600 MG TABLET.ER PO PRN (06:27)
[2018-12-19 07:36] LABS: Potassium 3.5 mmol/L (3.5-5.1)
[2018-12-19 07:37] LABS: Calcium 7.9 mg/dL (8.4-10.2)
[2018-12-19 09:19] LABS: Glucose,Whole Blood 115 mg/dL (75-99)
[2018-12-19] MEDS: IPRATROPIUM-ALBUTEROL 3 ML NEB INHALATION SCH ×4 (09:24→20:34)
[2018-12-19] MEDS: LEVOFLOXACIN 750 MG TAB PO SCH (09:49)
[2018-12-19] MEDS: VIT A,C & E-LUTEIN-MINERALS 1 EACH TAB PO SCH ×2 (09:49→21:15)
[2018-12-19] MEDS: OXYBUTYNIN CHLORIDE 5 MG TAB PO SCH ×2 (09:49→21:14)
[2018-12-19] MEDS: LORATADINE 10 MG TAB PO SCH (09:49)
[2018-12-19] MEDS: hydrALAZINE HCL 50 MG TAB PO SCH ×3 (09:50→21:13)
[2018-12-19] MEDS: ATENOLOL 25 MG TAB PO SCH (09:50)
[2018-12-19] MEDS: DOCUSATE 100 MG CAP PO SCH ×2 (09:50→21:15)
[2018-12-19] MEDS: FUROSEMIDE 40 MG TAB PO SCH (09:50)
[2018-12-19] MEDS: FINASTERIDE 5 MG TAB PO SCH (09:50)
[2018-12-19] MEDS: INSULIN DETEMIR 100 UNIT/ML 10 ML VIAL SQ SCH (09:50)
[2018-12-19] MEDS: buPROPion 75 MG TAB PO SCH (09:50)
[2018-12-19] MEDS: LORazepam 0.5 MG TAB PO SCH ×3 (09:50→23:23)
[2018-12-19] MEDS: APIXABAN 2.5 MG TABLET PO SCH ×2 (09:50→21:13)
[2018-12-19] MEDS: amLODIPine 5 MG TAB PO SCH ×2 (09:50→21:13)
[2018-12-19] MEDS: cycloSPORINE 0.05% OPHTH 0.4 ML DROPERETTE BOTH EYES SCH ×2 (09:50→21:16)
[2018-12-19] MEDS ORDERED: POTASSIUM CHLORIDE ER 20 MEQ TAB.ER PO STA (10:40)
--- NOTE | 2018-12-19 10:40 | P.PN ---
Subjective Patient is seen in follow-up for acute kidney injury on chronic kidney disease. 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 Recently his creatinine has been in the range of 1.8-2. Creatinine is up to 2.36 yesterday and is 2.3 today. He currently has a Lamas catheter in place for urinary retention. He is nonoliguric. Working with physical therapy. Maintain on Lasix 40 mg orally once daily. Vital signs are stable. General: The patient appeared well nourished and normally developed. HEENT: Head exam is unremarkable. Neck is without jugular venous distension. LUNGS: Lungs are clear to auscultation and percussion. Breath sounds decreased. HEART: Rate and Rhythm are regular. First and second heart sounds normal. No murmurs, rubs or gallops. ABDOMEN: Abdominal exam reveals normal bowel sounds. Non-tender and non- distended. No evidence of peritonitis. EXTREMITITES: 1+ edema. Objective - Vital Signs Vital signs: Vital Signs Temp 97.8 F 12/19/18 08:45 Pulse 104 H 12/19/18 09:33 Resp 20 12/19/18 08:45 BP 150/66 12/19/18 08:45 Pulse Ox 94 L 12/19/18 08:45 Intake & Output 12/18/18 12/19/18 12/19/18 18:59 06:59 18:59 Intake Total 140 Output Total 1300 Balance -1160 Weight 83.2 kg Intake: IV 40 0.9 40 Intake, IV Titration 100 Amount Piperacillin-Tazobactam 3 100 .375 gm In Sodium Chloride 0.9% 100 ml @ 25 mls/hr IVPB Q8H [facility] Rx#: [id number] Output: Urine 1300 Other: Voiding Method Indwelling Catheter Indwelling Catheter Indwelling Catheter # Bowel Movements 1 - Labs CBC & Chem 7: 12/18/18 05:15 12/19/18 06:41 Labs: Abnormal Lab Results - Last 24 Hours (Table) 12/18/18 12/18/18 12/18/18 Range/Units 06:01 11:08 16:01 Carbon Dioxide (22-30) mmol/L BUN (9-20) mg/dL Creatinine (0.66-1.25) mg/dL Glucose (74-99) mg/dL POC Glucose (mg/dL) 278 H 191 H (75-99) mg/dL Hemoglobin A1c 6.6 H (4.0-6.0) % Calcium (8.4-10.2) mg/dL 12/18/18 12/19/18 12/19/18 Range/Units 20:58 06:02 06:41 Carbon Dioxide 33 H (22-30) mmol/L BUN 40 H (9-20) mg/dL Creatinine 2.30 H (0.66-1.25) mg/dL Glucose 160 H (74-99) mg/dL POC Glucose (mg/dL) 301 H 227 H (75-99) mg/dL Hemoglobin A1c (4.0-6.0) % Calcium 7.9 L (8.4-10.2) mg/dL 12/19/18 Range/Units 09:16 Carbon Dioxide (22-30) mmol/L BUN (9-20) mg/dL Creatinine (0.66-1.25) mg/dL Glucose (74-99) mg/dL POC Glucose (mg/dL) 115 H (75-99) mg/dL Hemoglobin A1c (4.0-6.0) % Calcium (8.4-10.2) mg/dL Microbiology - Last 24 Hours (Table) 12/15/18 00:13 Blood Culture - Preliminary Blood No Growth after 96 hours Assessment and Plan Plan: Assessment: 1. 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 Recently creatinine has been in the range of 1.8-2. 2. History of urinary retention. Currently has a Lamas catheter in place. Maintained on Flomax. 3. Hypokalemia secondary to diuresis. Magnesium replete. Improved post with placement. 4. Volume overload. Better. 5. Diastolic CHF. 6. Pneumonia. Maintained on antibiotics. 7. Recent CVA. 8. Hypertension with chronic kidney disease. 9. Diabetes mellitus. 10. Acute hypoxic respiratory failure secondary to pneumonia and volume overload. 11. Anemia of chronic kidney disease maintained on Aranesp. Iron deficiency noted. 12. Acute kidney injury mostly prerenal secondary to diuresis. Creatinine 2.36 yesterday and stable at 2.3 today. Plan: Maintain Lasix 40 mg orally once daily. Avoid nephrotoxins. Repeat electrolytes in the morning. Hold off on IV iron due to infection.
[2018-12-19 11:48] LABS: Glucose,Whole Blood 245 mg/dL (75-99)
--- NOTE | 2018-12-19 14:20 | P.PN ---
Subjective Progress Note Date: 12/19/18 Principal diagnosis: Acute exacerbation of congestive heart failure The patient is seen today 12/19/2018 in follow-up on the selective care unit. Currently awake and alert in no acute distress. He is sitting up in a chair at the bedside. He currently denies any worsening shortness of breath. He has a loose nonproductive cough. Maintaining O2 saturations in the 90s on 6 L/m per nasal cannula. No chills or night sweats. Creatinine 2.30. He is on Lasix 40 mg by mouth daily. Objective - Vital Signs Vital signs: Vital Signs Temp 97.8 F 12/19/18 08:45 Pulse 100 12/19/18 12:26 Resp 22 12/19/18 12:00 BP 106/65 12/19/18 12:00 Pulse Ox 98 12/19/18 12:00 Intake & Output 12/18/18 12/19/18 12/19/18 18:59 06:59 18:59 Intake Total 140 480 Output Total 1300 Balance -1160 480 Weight 83.2 kg Intake: IV 40 0.9 40 Intake, IV Titration 100 Amount Piperacillin-Tazobactam 3 100 .375 gm In Sodium Chloride 0.9% 100 ml @ 25 mls/hr IVPB Q8H [facility] Rx#: [id number] Oral 480 Output: Urine 1300 Other: Voiding Method Indwelling Catheter Indwelling Catheter Indwelling Catheter # Bowel Movements 1 - Exam GENERAL EXAM: Alert, appears comfortable in no apparent distress. On 6 L nasal cannula HEAD: Normocephalic. EYES: Normal reaction of pupils, equal size. NOSE: Clear with pink turbinates. THROAT: No erythema or exudates. NECK: No masses, no JVD. CHEST: No chest wall deformity. LUNGS: Equal air entry with crackles in the bilateral posterior bases. Diminished.. CVS: S1 and S2 normal with no audible murmur, regular rhythm. ABDOMEN: No hepatosplenomegaly, normal bowel sounds, no guarding or rigidity. SPINE: No scoliosis or deformity SKIN: No rashes CENTRAL NERVOUS SYSTEM: No focal deficits, tone is normal in all 4 extremities. EXTREMITIES: There is 1-2+ peripheral edema. No clubbing, no cyanosis. Peripheral pulses are intact. - Labs CBC & Chem 7: 12/18/18 05:15 12/19/18 06:41 Labs: Abnormal Lab Results - Last 24 Hours (Table) 12/18/18 12/18/18 12/18/18 Range/Units 06:01 16:01 20:58 Carbon Dioxide (22-30) mmol/L BUN (9-20) mg/dL Creatinine (0.66-1.25) mg/dL Glucose (74-99) mg/dL POC Glucose (mg/dL) 191 H 301 H (75-99) mg/dL Hemoglobin A1c 6.6 H (4.0-6.0) % Calcium (8.4-10.2) mg/dL 12/19/18 12/19/18 12/19/18 Range/Units 06:02 06:41 09:16 Carbon Dioxide 33 H (22-30) mmol/L BUN 40 H (9-20) mg/dL Creatinine 2.30 H (0.66-1.25) mg/dL Glucose 160 H (74-99) mg/dL POC Glucose (mg/dL) 227 H 115 H (75-99) mg/dL Hemoglobin A1c (4.0-6.0) % Calcium 7.9 L (8.4-10.2) mg/dL 12/19/18 Range/Units 11:37 Carbon Dioxide (22-30) mmol/L BUN (9-20) mg/dL Creatinine (0.66-1.25) mg/dL Glucose (74-99) mg/dL POC Glucose (mg/dL) 245 H (75-99) mg/dL Hemoglobin A1c (4.0-6.0) % Calcium (8.4-10.2) mg/dL Microbiology - Last 24 Hours (Table) 12/15/18 00:13 Blood Culture - Preliminary Blood No Growth after 96 hours Assessment and Plan Assessment: Impression: #1 Acute on chronic hypoxemic respiratory failure secondary to acute exacerbation of diastolic congestive heart failure suspect a component of pneumonia. On 6 L nasal cannula. #2 Coronary artery disease with previous stent placement. #3 Diabetes mellitus. #4 Gastroesophageal reflux disease. #5 Hyperlipidemia. #6 Hypertension. #7 Obstructive sleep apnea. #8 Hypothyroidism. #9 History of prostate disorder. #10 Macular degeneration. Plan: The patient was seen and evaluated by Dr. Marin. He has been slow to progress. Continue current pulmonary medications. Continue diuretics. Anticoagulated with Eliquis. Increase his activity as tolerated. We'll continue to follow. I, the cosigning physician, performed a history & physical examination of the patient. Lungs sounds with crackles in the posterior bases, few scattered rhonchi, diminished. Maintaining good O2 saturations in the 90s on 6 L/m per nasal cannula. I discussed the assessment and plan of care with my nurse practitioner, Lilian Ibarra. I attest to the above note as dictated by her.
[2018-12-19] MEDS: BISMUTH SUBSALICYLATE 4,192 MG/240 ML BOTTLE PO PRN (15:02)
[2018-12-19 17:14] LABS: Glucose,Whole Blood 216 mg/dL (75-99)
[2018-12-19 21:00] LABS: Glucose,Whole Blood 146 mg/dL (75-99)
[2018-12-19] MEDS: CITALOPRAM HYDROBROMIDE 20 MG TAB PO SCH (21:13)
[2018-12-19] MEDS: ATORVASTATIN 20 MG TAB PO SCH (21:13)
[2018-12-19] MEDS: ASPIRIN 81 MG PO SCH (21:13)
[2018-12-19] MEDS: HYDROcodone/APAP 5-325MG 1 EACH TAB PO PRN (21:14)
[2018-12-19] MEDS: MELATONIN 3 MG TABLET PO SCH (21:14)
[2018-12-19] MEDS: CYANOCOBALAMIN 500 MCG TAB PO SCH (21:14)
[2018-12-19] MEDS: MULTIVITAMINS, THERA 1 EACH TAB PO SCH (21:14)
[2018-12-19] MEDS: TAMSULOSIN 0.4 MG CAP.ER.24H PO SCH (21:14)
--- NOTE | 2018-12-20 00:28 | P.PN ---
Subjective Patient is a 83-year-old male with a known history of diabetes type 2, hypertension, hyperlipidemia, history of OR, obstructive sleep apnea on CPAP, hypothyroidism, macular degeneration of bilateral eyes, coronary artery disease with stent placement history and anxiety/depression and schizophrenia who is currently staying at extended care facility since CVA in October 2018, was transferred to ER due to altered mental status. Patient also having shortness of breath. No fever or chills. Patient was also having right-sided abdominal rash. No nausea vomiting. Patient does eat with one-to-one feeding. No cough or sputum production. No aspiration as per staff. CT head showed cerebral atrophy and chronic small was ischemia. No change compared to old exam. There is some white matter hypodensity in the anterior right internal capsule consistent with old olecranon infarct. CT abdomen and pelvis showed bilateral pleural effusions and basilar pulmonary consolidation and atelectasis. Subcutaneous edema around the abdomen that could be related to congestive heart failure. There is probably small gallstones. Collect diverticulosis without diverticulitis. No acute abnormality within the abdominal pelvis. This patient is an 83-year-old man transferred here from [facility] to be evaluated for change in his mentation, change in the color of the skin to the right side of his abdomen, and possibly shortness of breath. The patient when I interview him does not give any complaints. He denies having pain anywhere. He is not otherwise able to give much in way history appearing to be having some dementia versus delirium. Chest x-ray showed right lower lobe infiltrate and atelectasis appears to be worse than old exam. No gross heart failure. EKG showed sinus bradycardia Patient has been on oxygen since admission to extended care [facility]. 12/16/2018 Patient is lying in bed, looks lethargic. He is alert awake and alert oriented to person and partially to time and place, he knows in the hospital but could not remember the name of the hospital, and he knew the month but not the ureter gait. He still dyspneic on 4 L oxygen via nasal cannula. He has dry cough but denies chest pain. Patient has right sided abdominal redness and warmth and periumbilical tenderness. He is saturating in the low 90s on 4 L via nasal cannula. No fever, no tachycardia and is breathing quietly at 16 BPM. Labs reviewed showing no leukocytosis. Anemia with hemoglobin stable around 8.6. His creatinine is stable at 1.8. Electrolytes within normal limits. 12/17/2018 pt became bradycardic in 40s and needed high flow oxygen yesterday and he was transferred to the select unit, pt still feels sick today , his heart rate improved to 80s and he still dyspeic although he feels a little better , he denies chest pain , he has dry cough. no abdominal pain . his rash is his abdomen is improved , he has harper catheter for urinary retention and he is on flomax already. cardiology team evaluated pt for acute D.CHF , pt to continue with lasix for now. cable wirer evaluation is appreciated , pulmonary team are following the pt as well while he is maintained on antibiotic. pt today feels depressed with suicidal ideation " i'd better be than like this " , psych consult is called and sitter at bed side 12/18/2018 Patient was sitting in chair less dyspneic and denying chest pain. No abdominal pain or nausea vomiting. Tolerating diet well. Heart rate at 56. Blood pressure 163. And saturating 98% on 4 L oxygen. Labs reviewed showing the clip C of 8.7K, hemoglobin 8.9. Creatinine went up to 2.36. Patient has Harper catheter for his urinary retention. He is on Lasix 40 mg IV 3 times a day. [employer] Manager team are following the patient recommended to change Lasix to 40 mg orally once daily. Sitter at bedside. Patient looks less depressed today, psychiatric evaluation is pending regarding his suicidal ideation. He continued to be on Levaquin and Zosyn for his pneumonia. He is anticoagulated with Eliquis 2.5 mg. 12/19/2018 Patient with mild dyspnea but no chest pain. No abdominal pain nausea vomiting. He had hard bowel movement this morning. He is a little tachycardic this morning 104-2122, compared to bradycardia yesterday 56-60. Patient is being evaluated by cardiology team. Labs are still pending, creatinine is 2.3 and we decrease his lack 6 from 3 times a day to once a day orally. Patient is planned to go to [facility] for rehab upon discharge. pt denies suicidal ideation and less depressed today.sitter is DC already b y psychiatrist. CONSTITUTIONAL: No fever, no malaise, no fatigue. HEENT: No recent visual problems or hearing problems. Denied any sore throat. CARDIOVASCULAR: No orthopnea, PND, no palpitations, no syncope. PULMONARY: No shortness of breath, no cough, no hemoptysis. GASTROINTESTINAL: No diarrhea, no nausea, no vomiting, no abdominal pain. Normoactive bowel sounds. NEUROLOGICAL: No headaches, no weakness, no numbness. HEMATOLOGICAL: Denies any bleeding or petechiae. GENITOURINARY: Denies any burning micturition, frequency, or urgency. MUSCULOSKELETAL/RHEUMATOLOGICAL: Denies any joint pain, swelling, or any muscle pain. ENDOCRINE: Denies any polyuria or polydipsia. Medications reviewed and include: Tylenol, albuterol, Norvasc, Eliquis, aspirin , atenolol, Lipitor, bismuth, Wellbutrin, Celexa, vitamin B12, cyclosporine ophthalmic solution, Bentyl, Colace, Proscar, Lasix, hydralazine, Brawley, NovoLog , Levemir insulin, lactulose, levofloxacin, levothyroxine, loratadine, Ativan, melatonin, multivitamin, oxybutynin, Protonix, Zosyn Objective - Vital Signs Vital signs: Vital Signs Temp 98.4 F 12/19/18 03:50 Pulse 104 H 12/19/18 09:33 Resp 18 12/19/18 03:51 BP 158/70 12/19/18 03:50 Pulse Ox 95 12/19/18 03:50 Intake & Output 12/18/18 12/19/18 12/19/18 18:59 06:59 18:59 Intake Total 140 Output Total 1300 Balance -1160 Weight 83.2 kg Intake: IV 40 0.9 40 Intake, IV Titration 100 Amount Piperacillin-Tazobactam 3 100 .375 gm In Sodium Chloride 0.9% 100 ml @ 25 mls/hr IVPB Q8H [facility] Rx#: [id number] Output: Urine 1300 Other: Voiding Method Indwelling Catheter Indwelling Catheter # Bowel Movements 1 - Exam -GENERAL: The patient is alert and oriented x3, with partially to place and time , not in any acute distress. Generally weak HEENT: Pupils are round and equally reacting to light. EOMI. No scleral icterus. No conjunctival pallor. Normocephalic, atraumatic. No pharyngeal erythema. No thyromegaly. CARDIOVASCULAR: S1 and S2 present. No murmurs, rubs, or gallops. PULMONARY: Chest is clear to auscultation, no wheezing or crackles. ABDOMEN: Soft, nontender, nondistended, normoactive bowel sounds. No palpable organomegaly. MUSCULOSKELETAL: No joint swelling or deformity. EXTREMITIES: No cyanosis, clubbing, or pedal edema. NEUROLOGICAL: Gross neurological examination did not reveal any focal deficits. SKIN: No rashes. - Labs CBC & Chem 7: 12/18/18 05:15 12/19/18 06:41 Labs: Abnormal Lab Results - Last 24 Hours (Table) 12/18/18 12/18/18 12/18/18 Range/Units 06:01 11:08 16:01 Carbon Dioxide (22-30) mmol/L BUN (9-20) mg/dL Creatinine (0.66-1.25) mg/dL Glucose (74-99) mg/dL POC Glucose (mg/dL) 278 H 191 H (75-99) mg/dL Hemoglobin A1c 6.6 H (4.0-6.0) % Calcium (8.4-10.2) mg/dL 12/18/18 12/19/18 12/19/18 Range/Units 20:58 06:02 06:41 Carbon Dioxide 33 H (22-30) mmol/L BUN 40 H (9-20) mg/dL Creatinine 2.30 H (0.66-1.25) mg/dL Glucose 160 H (74-99) mg/dL POC Glucose (mg/dL) 301 H 227 H (75-99) mg/dL Hemoglobin A1c (4.0-6.0) % Calcium 7.9 L (8.4-10.2) mg/dL 12/19/18 Range/Units 09:16 Carbon Dioxide (22-30) mmol/L BUN (9-20) mg/dL Creatinine (0.66-1.25) mg/dL Glucose (74-99) mg/dL POC Glucose (mg/dL) 115 H (75-99) mg/dL Hemoglobin A1c (4.0-6.0) % Calcium (8.4-10.2) mg/dL Microbiology - Last 24 Hours (Table) 12/15/18 00:13 Blood Culture - Preliminary Blood No Growth after 96 hours Assessment and Plan Plan: Assessment: Acute right lower lobe infiltrates/pneumonia/HCAP Bilateral small pleural effusion possible Right abdominal cellulitis depression with suicidal ideation chronic kidney disease stage 3 Altered mental status possible metabolic encephalopathy, improving Diabetes type 2 insulin-dependent Recent history of CVA/Lacunar infarct. Coronary artery disease history of stent placement Hypertension Hyperlipidemia History of OR History of thyroid cancer Obstructive sleep apnea not using CPAP Macular degeneration of bilateral ice Anxiety depression and schizophrenia Medical debility currently attacks and care facility Previous history of smoking Patient is on anticoagulation with Apixaban. Etiology not sure. Plan: Patient will be continued on broad-spectrum antibiotics in the form of Levaquin and Zosyn. cardiology and pulmonary consults. pscyh consult and suicidal precaution. Continue with home medications and insulin dosing. Oxygen therapy and follow up closely. Currently the current management and further recommendations based on the clinical course. Prognosis is guarded with multiple medical problems and comorbid conditions.
[2018-12-20] MEDS: LEVOTHYROXINE 88 MCG TAB PO SCH (05:32)
[2018-12-20] MEDS: PANTOPRAZOLE 40 MG TABLET PO SCH (05:32)
[2018-12-20] MEDS: PIPERACILLIN-TAZOBACTAM 3.375 GM in SODIUM CHLORIDE 0.9% 100 ML IVPB SCH ×3 (05:33→21:54)
[2018-12-20] MEDS: DICYCLOMINE 10 MG CAP PO PRN ×3 (05:33→17:01)
[2018-12-20] MEDS: INSULIN ASPART 100 UNIT/ML 1 ML 10 ML VIAL SQ SCH ×7 (05:38→21:48)
[2018-12-20 05:40] LABS: Glucose,Whole Blood 121 mg/dL (75-99)
[2018-12-20] MEDS: BISMUTH SUBSALICYLATE 4,192 MG/240 ML BOTTLE PO PRN ×2 (06:43→12:22)
[2018-12-20] MEDS: LORazepam 0.5 MG TAB PO SCH ×3 (06:44→23:45)
[2018-12-20] MEDS: IPRATROPIUM-ALBUTEROL 3 ML NEB INHALATION SCH ×4 (08:08→19:15)
[2018-12-20 08:26] LABS: Calcium 7.8 mg/dL (8.4-10.2); Potassium 4.3 mmol/L (3.5-5.1)
[2018-12-20] MEDS: buPROPion 75 MG TAB PO SCH (08:56)
[2018-12-20] MEDS: VIT A,C & E-LUTEIN-MINERALS 1 EACH TAB PO SCH ×2 (08:56→20:24)
[2018-12-20] MEDS: cycloSPORINE 0.05% OPHTH 0.4 ML DROPERETTE BOTH EYES SCH ×2 (08:56→20:25)
[2018-12-20] MEDS: OXYBUTYNIN CHLORIDE 5 MG TAB PO SCH ×2 (08:57→20:24)
[2018-12-20] MEDS: ATENOLOL 25 MG TAB PO SCH (08:57)
[2018-12-20] MEDS: hydrALAZINE HCL 50 MG TAB PO SCH ×3 (08:57→20:25)
[2018-12-20] MEDS: DOCUSATE 100 MG CAP PO SCH ×2 (08:57→20:24)
[2018-12-20] MEDS: amLODIPine 5 MG TAB PO SCH ×2 (08:57→20:25)
[2018-12-20] MEDS: INSULIN DETEMIR 100 UNIT/ML 10 ML VIAL SQ SCH (08:57)
[2018-12-20] MEDS: FINASTERIDE 5 MG TAB PO SCH (08:57)
[2018-12-20] MEDS: APIXABAN 2.5 MG TABLET PO SCH ×2 (08:57→20:25)
[2018-12-20] MEDS: LORATADINE 10 MG TAB PO SCH (08:57)
[2018-12-20] MEDS: guaiFENesin 600 MG TABLET.ER PO PRN (08:57)
[2018-12-20] MEDS: FUROSEMIDE 40 MG TAB PO SCH (08:58)
--- NOTE | 2018-12-20 09:23 | P.PN ---
Subjective Patient is seen in follow-up for acute kidney injury on chronic kidney disease. 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 Recently his creatinine has been in the range of 1.8-2. Creatinine peaked at 2.36 this admission which was due to diuresis. It is 2.05 today. Currently on Lasix 40 mg once daily. He has a Lamas catheter in place for urinary retention. He is nonoliguric. Working with physical therapy. Vital signs are stable. General: The patient appeared well nourished and normally developed. HEENT: Head exam is unremarkable. Neck is without jugular venous distension. LUNGS: Lungs are clear to auscultation and percussion. Breath sounds decreased. HEART: Rate and Rhythm are regular. First and second heart sounds normal. No murmurs, rubs or gallops. ABDOMEN: Abdominal exam reveals normal bowel sounds. Non-tender and non- distended. No evidence of peritonitis. EXTREMITITES: Trace edema. Objective - Vital Signs Vital signs: Vital Signs Temp 97.9 F 12/20/18 04:00 Pulse 84 12/20/18 08:18 Resp 17 12/20/18 04:00 BP 140/67 12/20/18 04:00 Pulse Ox 95 12/20/18 04:00 Intake & Output 12/19/18 12/20/18 12/20/18 18:59 06:59 18:59 Intake Total 480 100 Output Total 1325 Balance 480 -1225 Weight 83.3 kg Intake: Intake, IV Titration 100 Amount Piperacillin-Tazobactam 3 100 .375 gm In Sodium Chloride 0.9% 100 ml @ 25 mls/hr IVPB Q8H [facility] Rx#: [id number] Oral 480 Output: Urine 1325 Other: Voiding Method Indwelling Catheter Indwelling Catheter - Labs CBC & Chem 7: 12/18/18 05:15 12/20/18 07:18 Labs: Abnormal Lab Results - Last 24 Hours (Table) 12/19/18 12/19/18 12/19/18 Range/Units 11:37 17:00 20:53 BUN (9-20) mg/dL Creatinine (0.66-1.25) mg/dL Glucose (74-99) mg/dL POC Glucose (mg/dL) 245 H 216 H 146 H (75-99) mg/dL Calcium (8.4-10.2) mg/dL 12/20/18 12/20/18 Range/Units 05:37 07:18 BUN 35 H (9-20) mg/dL Creatinine 2.05 H (0.66-1.25) mg/dL Glucose 109 H (74-99) mg/dL POC Glucose (mg/dL) 121 H (75-99) mg/dL Calcium 7.8 L (8.4-10.2) mg/dL Microbiology - Last 24 Hours (Table) 12/15/18 00:13 Blood Culture - Preliminary Blood No Growth after 120 hours Assessment and Plan Plan: Assessment: 1. 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 Recently creatinine has been in the range of 1.8-2. 2. History of urinary retention. Currently has a Lamas catheter in place. Maintained on Flomax. 3. Hypokalemia secondary to diuresis. Magnesium replete. Improved post with placement. 4. Volume overload. Better. 5. Diastolic CHF. 6. Pneumonia. Maintained on antibiotics. 7. Recent CVA. 8. Hypertension with chronic kidney disease. 9. Diabetes mellitus. 10. Acute hypoxic respiratory failure secondary to pneumonia and volume overload. 11. Anemia of chronic kidney disease maintained on Aranesp. Iron deficiency noted. 12. Acute kidney injury mostly prerenal secondary to diuresis. Improving. Plan: Maintain Lasix 40 mg orally once daily. Avoid nephrotoxins. Repeat electrolytes in the morning. Hold off on IV iron due to infection.
--- NOTE | 2018-12-20 10:40 | P.PN ---
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 Patient also having shortness of breath. No fever or chills. Patient was also having right-sided abdominal rash. No nausea vomiting. Patient does eat with one-to-one feeding. No cough or sputum production. No aspiration as per staff. CT head showed cerebral atrophy and chronic small was ischemia. No change compared to old exam. There is some white matter hypodensity in the anterior right internal capsule consistent with old olecranon infarct. CT abdomen and pelvis showed bilateral pleural effusions and basilar pulmonary consolidation and atelectasis. Subcutaneous edema around the abdomen that could be related to congestive heart failure. There is probably small gallstones. Collect diverticulosis without diverticulitis. No acute abnormality within the abdominal pelvis. This patient is an 83-year-old man transferred here from halfway to be evaluated for change in his mentation, change in the color of the skin to the right side of his abdomen, and possibly shortness of breath. The patient when I interview him does not give any complaints. He denies having pain anywhere. He is not otherwise able to give much in way history appearing to be having some dementia versus delirium. Chest x-ray showed right lower lobe infiltrate and atelectasis appears to be worse than old exam. No gross heart failure. EKG showed sinus bradycardia Patient has been on oxygen since admission to extended care [facility]. 12/16/2018 Patient is lying in bed, looks lethargic. He is alert awake and alert oriented to person and partially to time and place, he knows in the hospital but could not remember the name of the hospital, and he knew the month but not the ureter gait. He still dyspneic on 4 L oxygen via nasal cannula. He has dry cough but denies chest pain. Patient has right sided abdominal redness and warmth and periumbilical tenderness. He is saturating in the low 90s on 4 L via nasal cannula. No fever, no tachycardia and is breathing quietly at 16 BPM. Labs reviewed showing no leukocytosis. Anemia with hemoglobin stable around 8.6. His creatinine is stable at 1.8. Electrolytes within normal limits. 12/17/2018 pt became bradycardic in 40s and needed high flow oxygen yesterday and he was transferred to the select unit, pt still feels sick today , his heart rate improved to 80s and he still dyspeic although he feels a little better , he denies chest pain , he has dry cough. no abdominal pain . his rash is his abdomen is improved , he has harper catheter for urinary retention and he is on flomax already. cardiology team evaluated pt for acute D.CHF , pt to continue with lasix for now. sqe evaluation is appreciated , pulmonary team are following the pt as well while he is maintained on antibiotic. pt today feels depressed with suicidal ideation " i'd better be than like this " , psych consult is called and sitter at bed side 12/18/2018 Patient was sitting in chair less dyspneic and denying chest pain. No abdominal pain or nausea vomiting. Tolerating diet well. Heart rate at 56. Blood pressure 163. And saturating 98% on 4 L oxygen. Labs reviewed showing the clip C of 8.7K, hemoglobin 8.9. Creatinine went up to 2.36. Patient has Harper catheter for his urinary retention. He is on Lasix 40 mg IV 3 times a day. [facility] team are following the patient recommended to change Lasix to 40 mg orally once daily. Sitter at bedside. Patient looks less depressed today, psychiatric evaluation is pending regarding his suicidal ideation. He continued to be on Levaquin and Zosyn for his pneumonia. He is anticoagulated with Eliquis 2.5 mg. 12/19/2018 Patient with mild dyspnea but no chest pain. No abdominal pain nausea vomiting. He had hard bowel movement this morning. He is a little tachycardic this morning [id number], compared to bradycardia yesterday 56-60. Patient is being evaluated by cardiology team. Labs are still pending, creatinine is 2.3 and we decrease his lack 6 from 3 times a day to once a day orally. Patient is planned to go to [facility] for rehab upon discharge. pt denies suicidal ideation and less depressed today.sitter is DC already b y psychiatrist. 12/20/2018 patient states that he is the same as yesterday regarding his breathing and no chest pain. For the last 2 days he was complaining of from suprapubic pain and tenderness. Patient has Harper catheter and draining about 200 mL with dark- colored urine. Urinalysis previously was negative. We going to recheck urinalysis and bladder scan. Increase his pain medication of Narco every 8 hours when necessary. His rash and his abdominal wall is improving and feeding away. Patient denies depression 2 days with no suicidal ideation. His currently on 4 L oxygen via nasal cannula, rest of Vitas looks stable. His creatinine is improving to 2.0 today. Patient is supposed to go to [facility] upon discharge. Patient has been evaluated by cardiology, pulmonology and nephrology team and their input is appreciated. Patient remains on Zosyn and Levaquin, his Lasix decreased to 40 mg by mouth daily. Also he is on Eliquis. CONSTITUTIONAL: No fever, no malaise, no fatigue. HEENT: No recent visual problems or hearing problems. Denied any sore throat. CARDIOVASCULAR: No orthopnea, PND, no palpitations, no syncope. PULMONARY: No shortness of breath, no cough, no hemoptysis. GASTROINTESTINAL: No diarrhea, no nausea, no vomiting, no abdominal pain. Normoactive bowel sounds. NEUROLOGICAL: No headaches, no weakness, no numbness. HEMATOLOGICAL: Denies any bleeding or petechiae. GENITOURINARY: Denies any burning micturition, frequency, or urgency. MUSCULOSKELETAL/RHEUMATOLOGICAL: Denies any joint pain, swelling, or any muscle pain. ENDOCRINE: Denies any polyuria or polydipsia. Medications reviewed and include: Tylenol, albuterol, Norvasc, Eliquis, aspirin , atenolol, Lipitor, bismuth, Wellbutrin, Celexa, vitamin B12, cyclosporine ophthalmic solution, Bentyl, Colace, Proscar, Lasix, hydralazine, Laclede, NovoLog , Levemir insulin, lactulose, levofloxacin, levothyroxine, loratadine, Ativan, melatonin, multivitamin, oxybutynin, Protonix, Zosyn Objective - Vital Signs Vital signs: Vital Signs Temp 97.9 F 12/20/18 04:00 Pulse 84 12/20/18 08:18 Resp 17 12/20/18 04:00 BP 140/67 12/20/18 04:00 Pulse Ox 95 12/20/18 04:00 Intake & Output 12/19/18 12/20/18 12/20/18 18:59 06:59 18:59 Intake Total 480 100 Output Total 1325 Balance 480 -1225 Weight 83.3 kg Intake: Intake, IV Titration 100 Amount Piperacillin-Tazobactam 3 100 .375 gm In Sodium Chloride 0.9% 100 ml @ 25 mls/hr IVPB Q8H [facility] Rx#: [id number] Oral 480 Output: Urine 1325 Other: Voiding Method Indwelling Catheter Indwelling Catheter - Exam -GENERAL: The patient is alert and oriented x3, with partially to place and time , not in any acute distress. Generally weak HEENT: Pupils are round and equally reacting to light. EOMI. No scleral icterus. No conjunctival pallor. Normocephalic, atraumatic. No pharyngeal erythema. No thyromegaly. CARDIOVASCULAR: S1 and S2 present. No murmurs, rubs, or gallops. PULMONARY: Chest is clear to auscultation, no wheezing or crackles. ABDOMEN: Soft, nontender, nondistended, normoactive bowel sounds. No palpable organomegaly. MUSCULOSKELETAL: No joint swelling or deformity. EXTREMITIES: No cyanosis, clubbing, or pedal edema. NEUROLOGICAL: Gross neurological examination did not reveal any focal deficits. SKIN: No rashes. - Labs CBC & Chem 7: 12/18/18 05:15 12/20/18 07:18 Labs: Abnormal Lab Results - Last 24 Hours (Table) 12/19/18 12/19/18 12/19/18 Range/Units 11:37 17:00 20:53 BUN (9-20) mg/dL Creatinine (0.66-1.25) mg/dL Glucose (74-99) mg/dL POC Glucose (mg/dL) 245 H 216 H 146 H (75-99) mg/dL Calcium (8.4-10.2) mg/dL 12/20/18 12/20/18 Range/Units 05:37 07:18 BUN 35 H (9-20) mg/dL Creatinine 2.05 H (0.66-1.25) mg/dL Glucose 109 H (74-99) mg/dL POC Glucose (mg/dL) 121 H (75-99) mg/dL Calcium 7.8 L (8.4-10.2) mg/dL Microbiology - Last 24 Hours (Table) 12/15/18 00:13 Blood Culture - Preliminary Blood No Growth after 120 hours Assessment and Plan Plan: Assessment: Acute right lower lobe infiltrates/pneumonia/HCAP Bilateral small pleural effusion possible Right abdominal cellulitis depression with suicidal ideation chronic kidney disease stage 3 Altered mental status possible metabolic encephalopathy, improving Diabetes type 2 insulin-dependent Recent history of CVA/Lacunar infarct. Coronary artery disease history of stent placement Hypertension Hyperlipidemia History of [place] History of thyroid cancer Obstructive sleep apnea not using CPAP Macular degeneration of bilateral ice Anxiety depression and schizophrenia Medical debility currently [facility] Previous history of smoking Patient is on anticoagulation with Apixaban. Etiology not sure. Plan: Patient will be continued on broad-spectrum antibiotics in the form of Levaquin and Zosyn. cardiology and pulmonary consults. pscy consult and suicidal precaution. Continue with home medications and insulin dosing. Oxygen therapy and follow up closely. Currently the current management and further recommendations based on the clinical course. Prognosis is guarded with multiple medical problems and comorbid conditions.
[2018-12-20 12:02] LABS: Glucose,Whole Blood 163 mg/dL (75-99)
[2018-12-20] MEDS: HYDROcodone/APAP 5-325MG 1 EACH TAB PO PRN ×2 (12:21→21:48)
[2018-12-20 14:11] LABS: Appearance,Urine Clear (Clear); Bilirubin,Urine Negative (Negative); Blood,Urine Small (Negative); Budding Yeast,Urine Rare /hpf; Color,Urine Light Yellow; Glucose,Urine (UA) Negative (Negative); Hyphae Yeast, Urine Rare /hpf; Ketones,Urine Negative (Negative); Leukocyte Esterase,Urine Moderate (Negative); Nitrite,Urine Negative (Negative); PH, Urine 6.5 (5.0-8.0); Protein,Urine 1+ (Negative); RBC,Urine 11 /hpf (0-5); Specific Gravity,Urine 1.009 (1.001-1.035); Urobilinogen,Urine <2.0 mg/dL (<2.0); WBC,Urine 22 /hpf (0-5)
--- NOTE | 2018-12-20 14:28 | P.PN ---
Subjective Progress Note Date: 12/20/18 Principal diagnosis: Acute exacerbation of congestive heart failure The patient is seen today 12/19/2018 in follow-up on the selective care unit. Currently awake and alert in no acute distress. He is sitting up in a chair at the bedside. He currently denies any worsening shortness of breath. He has a loose nonproductive cough. Maintaining O2 saturations in the 90s on 6 L/m per nasal cannula. No chills or night sweats. Creatinine 2.30. He is on Lasix 40 mg by mouth daily. On 12/20/2018 patient seen in follow-up. He is resting in bed, he is complaining of abdominal pain, abdomen is soft, nontender, she did have a large bowel movement yesterday. FiO2 is down to 2 L, his pulse ox is 97%, no fever or chills, vital signs are stable, lung sounds are clear to auscultation, no rhonchi, no wheezes or rales. Urinalysis was repeated, and showed small amount of blood, moderate leuks, 11 of red blood cells, and 22 of white blood cells, and rare yeast. Patient has been started on oral Levaquin. Patient has been diuresed, he is in -745 mL fluid balance, breathing easier. IV diuretics have been transitioned to oral Lasix. Renal profile slightly improved on today's labs, B1 is 35, and creatinine is 2.05. Electrolytes are within normal limits, nephrology is following. No fever or chills, no cough, no chest congestion. Objective - Vital Signs Vital signs: Vital Signs Temp 98.2 F 12/20/18 08:20 Pulse 85 12/20/18 11:34 Resp 20 12/20/18 08:20 BP 172/73 12/20/18 08:20 Pulse Ox 97 12/20/18 11:34 Intake & Output 12/19/18 12/20/18 12/20/18 18:59 06:59 18:59 Intake Total 480 100 Output Total 1325 Balance 480 -1225 Weight 83.3 kg Intake: Intake, IV Titration 100 Amount Piperacillin-Tazobactam 3 100 .375 gm In Sodium Chloride 0.9% 100 ml @ 25 mls/hr IVPB Q8H [facility] Rx#: [id number] Oral 480 Output: Urine 1325 Other: Voiding Method Indwelling Catheter Indwelling Catheter Indwelling Catheter - Exam GENERAL EXAM: Alert, pleasant, 83-year-old white male early on 2 L per nasal cannula comfortable in no apparent distress. HEAD: Normocephalic/atraumatic. EYES: Normal reaction of pupils, equal size. Conjunctiva pink, sclera white. NOSE: Clear with pink turbinates. THROAT: No erythema or exudates. NECK: No masses, no JVD, no thyroid enlargement, no adenopathy. CHEST: No chest wall deformity. Symmetrical expansion. LUNGS: Equal air entry with clear breath sounds CVS: Regular rate and rhythm, normal S1 and S2, no gallops, no murmurs, no rubs ABDOMEN: Soft, nontender. No hepatosplenomegaly, normal bowel sounds, no guarding or rigidity. EXTREMITIES: No clubbing, no edema, no cyanosis, 2+ pulses and upper and lower extremities. MUSCULOSKELETAL: Muscle strength and tone normal. SPINE: No scoliosis or deformity SKIN: No rashes CENTRAL NERVOUS SYSTEM: Alert and oriented -3. No focal deficits, tone is normal in all 4 extremities. PSYCHIATRIC: Alert and oriented -3. Appropriate affect. Intact judgment and insight. - Labs CBC & Chem 7: 12/18/18 05:15 12/20/18 07:18 Labs: Abnormal Lab Results - Last 24 Hours (Table) 12/19/18 12/19/18 12/20/18 Range/Units 17:00 20:53 05:37 BUN (9-20) mg/dL Creatinine (0.66-1.25) mg/dL Glucose (74-99) mg/dL POC Glucose (mg/dL) 216 H 146 H 121 H (75-99) mg/dL Calcium (8.4-10.2) mg/dL Urine Protein (Negative) Urine Blood (Negative) Ur Leukocyte Esterase (Negative) Urine RBC (0-5) /hpf Urine WBC (0-5) /hpf Urine Yeast (Budding) (None) /hpf 12/20/18 12/20/18 12/20/18 Range/Units 07:18 11:39 13:30 BUN 35 H (9-20) mg/dL Creatinine 2.05 H (0.66-1.25) mg/dL Glucose 109 H (74-99) mg/dL POC Glucose (mg/dL) 163 H (75-99) mg/dL Calcium 7.8 L (8.4-10.2) mg/dL Urine Protein 1+ H (Negative) Urine Blood Small H (Negative) Ur Leukocyte Esterase Moderate H (Negative) Urine RBC 11 H (0-5) /hpf Urine WBC 22 H (0-5) /hpf Urine Yeast (Budding) Rare H (None) /hpf Microbiology - Last 24 Hours (Table) 12/15/18 00:13 Blood Culture - Preliminary Blood No Growth after 120 hours Assessment and Plan Plan: #1 Acute on chronic hypoxemic respiratory failure secondary to acute exacerbation of diastolic congestive heart failure suspect a component of pneumonia. On 6 L nasal cannula. #2 Coronary artery disease with previous stent placement. #3 Diabetes mellitus. #4 Gastroesophageal reflux disease. #5 Hyperlipidemia. #6 Hypertension. #7 Obstructive sleep apnea. #8 Hypothyroidism. #9 History of prostate disorder. #10 Macular degeneration. Plan: Continue weaning FiO2, patient is breathing easier, fever or chills, no cough or phlegm production, his volume status has improved. Today his main complaint is his abdominal pain, urinalysis shows some blood of underlying urinary tract infection, patient has been started on oral Levaquin. Pulmonary perspective patient is stable, diuretics per nephrology service. We will follow on as- needed basis. I performed a history & physical examination of the patient and discussed their management with my nurse practitioner, Jody Whitfield. I reviewed the nurse practitioner's note and agree with the documented findings and plan of care. Lung sounds are positive for clear breath sounds. The findings and the impression was discussed with the patient. I attest to the documentation by the nurse practitioner. Time with Patient: Less than 30
[2018-12-20 16:51] LABS: Glucose,Whole Blood 99 mg/dL (75-99)
[2018-12-20] MEDS: TAMSULOSIN 0.4 MG CAP.ER.24H PO SCH (20:24)
[2018-12-20] MEDS: MULTIVITAMINS, THERA 1 EACH TAB PO SCH (20:24)
[2018-12-20] MEDS: ASPIRIN 81 MG PO SCH (20:25)
[2018-12-20] MEDS: MELATONIN 3 MG TABLET PO SCH (20:25)
[2018-12-20] MEDS: CITALOPRAM HYDROBROMIDE 20 MG TAB PO SCH (20:25)
[2018-12-20] MEDS: CYANOCOBALAMIN 500 MCG TAB PO SCH (20:25)
[2018-12-20] MEDS: ATORVASTATIN 20 MG TAB PO SCH (20:25)
[2018-12-20 20:42] LABS: Basophils # (A) 0.1 k/uL (0-0.2); Basophils % (A) 1 %; Eosinophils # (A) 0.3 k/uL (0-0.7); Eosinophils % (A) 3 %; HCT 29.6 % (39.0-53.0); HGB 9.2 gm/dL (13.0-17.5); Hypochromasia Moderate; Lymphocytes # (A) 1.3 k/uL (1.0-4.8); Lymphocytes % (A) 16 %; MCH 33.2 pg (25.0-35.0); MCV 106.8 fL (80.0-100.0); Macrocytosis Marked; Mean Platelet Volume 7.7; Monocytes # (A) 0.5 k/uL (0-1.0); Monocytes % (A) 6 %; Neutrophils % (A) 72 %; Platelet Count 175 k/uL (150-450); RBC 2.77 m/uL (4.30-5.90); RDW 15.7 % (11.5-15.5); WBC 8.3 k/uL (3.8-10.6)
[2018-12-20 21:02] LABS: Glucose,Whole Blood 76 mg/dL (75-99)
[2018-12-20 21:42] LABS: Glucose,Whole Blood 96 mg/dL (75-99)
[2018-12-21] MEDS: DICYCLOMINE 10 MG CAP PO PRN ×4 (00:11→23:45)
[2018-12-21] MEDS: BISMUTH SUBSALICYLATE 4,192 MG/240 ML BOTTLE PO PRN (04:57)
[2018-12-21] MEDS: PIPERACILLIN-TAZOBACTAM 3.375 GM in SODIUM CHLORIDE 0.9% 100 ML IVPB SCH (04:58)
[2018-12-21] MEDS: LEVOTHYROXINE 88 MCG TAB PO SCH (04:58)
[2018-12-21 06:48] LABS: Glucose,Whole Blood 164 mg/dL (75-99)
[2018-12-21] MEDS: OXYBUTYNIN CHLORIDE 5 MG TAB PO SCH ×2 (08:24→20:08)
[2018-12-21] MEDS: PANTOPRAZOLE 40 MG TABLET PO SCH (08:25)
[2018-12-21] MEDS: FINASTERIDE 5 MG TAB PO SCH (08:25)
[2018-12-21] MEDS: LORazepam 0.5 MG TAB PO SCH ×3 (08:25→23:45)
[2018-12-21] MEDS: hydrALAZINE HCL 50 MG TAB PO SCH ×3 (08:25→21:36)
[2018-12-21] MEDS: FUROSEMIDE 40 MG TAB PO SCH (08:25)
[2018-12-21] MEDS: LORATADINE 10 MG TAB PO SCH (08:25)
[2018-12-21] MEDS: ATENOLOL 25 MG TAB PO SCH (08:25)
[2018-12-21] MEDS: LEVOFLOXACIN 750 MG TAB PO SCH (08:26)
[2018-12-21] MEDS: VIT A,C & E-LUTEIN-MINERALS 1 EACH TAB PO SCH ×2 (08:26→20:08)
[2018-12-21] MEDS: APIXABAN 2.5 MG TABLET PO SCH ×2 (08:26→20:07)
[2018-12-21] MEDS: buPROPion 75 MG TAB PO SCH (08:26)
[2018-12-21] MEDS: INSULIN DETEMIR 100 UNIT/ML 10 ML VIAL SQ SCH (08:27)
[2018-12-21] MEDS: DOCUSATE 100 MG CAP PO SCH ×2 (08:27→20:08)
[2018-12-21] MEDS: cycloSPORINE 0.05% OPHTH 0.4 ML DROPERETTE BOTH EYES SCH ×2 (08:27→21:36)
[2018-12-21] MEDS: INSULIN ASPART 100 UNIT/ML 1 ML 10 ML VIAL SQ SCH ×7 (08:28→19:53)
[2018-12-21] MEDS: HYDROcodone/APAP 5-325MG 1 EACH TAB PO PRN ×2 (08:28→20:07)
[2018-12-21] MEDS: IPRATROPIUM-ALBUTEROL 3 ML NEB INHALATION SCH ×4 (08:48→20:34)
[2018-12-21 10:15] LABS: Calcium 8.2 mg/dL (8.4-10.2); Potassium 4.1 mmol/L (3.5-5.1)
[2018-12-21] MEDS: amLODIPine 5 MG TAB PO SCH ×2 (10:29→20:07)
[2018-12-21] MEDS: guaiFENesin 600 MG TABLET.ER PO PRN (10:29)
[2018-12-21] MEDS ORDERED: MORPHINE SULFATE 4 MG/ML SYRINGE IVP STA (10:42)
[2018-12-21 11:00] LABS: Glucose,Whole Blood 209 mg/dL (75-99)
--- NOTE | 2018-12-21 13:44 | P.GSCN ---
History of Present Illness Consult date: 12/21/18 History of present illness: CHIEF COMPLAINT: Abdominal pain HISTORY OF PRESENT ILLNESS: The patient is a 83 year old male re-admitted at least 3 times in 2 months. Family and patient reports chronic abdominal pain for 2 months as well. Patient son and are at bedside reports 3 hospitalizations in less than 2 months. Patient has low appetite. He complains primarily of epigastric right upper quadrant abdominal pain. Previous CT of the abdomen and pelvis thoroughly reviewed also consistent with gallstones. Currently patient is on a heart healthy diet however at bedside includes Egg salad and Ensure which also contains fat. PAST MEDICAL HISTORY: See list. PAST SURGICAL HISTORY: See list. MEDICATIONS: See list. ALLERGIES: See list. SOCIAL HISTORY: No illicit drug use FAMILY HISTORY: No reports of Crohn's disease or inflammatory bowel disease REVIEW OF ORGAN SYSTEMS: CONSTITUTIONAL: No fevers or chills HEENT: Has troubles with vision. No reports of dysphagia. ENDOCRINE: Has thyroid disorders and diabetes. CARDIOVASCULAR: No heart attack. No chest pain. RESPIRATORY: Has shortness of breath or pneumonia. GASTROINTESTINAL: No reports of recent blood in stools. NEURO: No recent stroke. No current headache. PSYCH: Has dementia with schizophrenia and depression with anxiety. Past suicidal ideation HEMATOLOGIC: No easy bruising or bleeding LYMPHATIC: The patient denies any lumps and bumps around the neck. GENITOURINARY: Has increased urinary frequency. MUSCULOSKELETAL: Has back pain, stiffness or joint arthritis. SKIN: No skin cancer or rash. PHYSICAL EXAM: VITAL SIGNS: Reviewed GENERAL: Well-developed in no acute distress. HEENT: No sclera icterus. Extraocular movements grossly intact. Moist buccal mucosa. Head is atraumatic, normocephalic. Hears conversational speech. No nasal drainage. NECK: Supple without lymphadenopathy. CHEST: Non-labored respirations and equal bilateral excursions. CARDIOVASCULAR: Palpable 2+ radial pulses. ABDOMEN: Soft. Nondistended. Tender along the epigastrium MUSCULOSKELETAL: No clubbing, cyanosis. Bilateral upper extremity edema. NEUROLOGIC: No focal or lateralizing signs. Cranial nerves II through XII grossly intact. PSYCH: Flat affect. Alert and oriented to person. SKIN: Well perfused. Good skin turgor. LABS: Reviewed STUDIES: Reviewed ASSESSMENT: 1. Abnormal computed tomography scan 2. Abdominal pain 3. Cholelithiasis 4. Stage 3/4 acute on chronic renal insufficiency PLAN: 1. Patient has baseline stage 3/4 acute on chronic renal insufficiency. Also he has bilateral upper extremity edema. Overall surgical intervention in itself is high risk and also described to the patient's family. 2. Will proceed with ultrasound of the gallbladder with possible HIDA scan to check acute cholecystitis. 3. Otherwise he will need medical and cardiac risk assessment prior to any surgical intervention as well. 4. Will follow closely. 5. Recommend low-fat diet. Thank you for this kind consultation. Past Medical History Past Medical History: Coronary Artery Disease (CAD), Cancer, Diabetes Mellitus, GERD/Reflux, Hyperlipidemia, Hypertension, Myocardial Infarction ([place]), Pneumonia , Prostate Disorder, Sleep Apnea/CPAP/BIPAP, Thyroid Disorder Additional Past Medical History / Comment(s): no CPAP used, hiatal hernia, hx thyroid cancer, macular degeneration danielle eyes Last Myocardial Infarction Date:: 1999 History of Any Multi-Drug Resistant Organisms: None Reported Past Surgical History: Heart Catheterization With Stent, Joint Replacement Additional Past Surgical History / Comment(s): left knee replacement, danielle cataracts, thyroidectomy Past Anesthesia/Blood Transfusion Reactions: No Reported Reaction Additional Past Anesthesia/Blood Transfusion Reaction / Comm: clausterphobia - "uses open mri" Date of Last Stent Placement:: 1999 Past Psychological History: Anxiety, Depression, Schizophrenia Additional Psychological History / Comment(s): Pt currently is staying at [facility] for rehab since 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 They are getting him up with walker and he just started using the bars. Pt also has been on oxygen since getting to rehab. He no longer drives, family can take him to app. Smoking Status: Former smoker Past Alcohol Use History: None Reported Additional Past Alcohol Use History / Comment(s): started smoking 1952 and quit 1993 Past Drug Use History: None Reported - Past Family History Father Family Medical History: Cancer Additional Family Medical History / Comment(s): Father had lung cancer and colorectal cancer. He smoked as a younger man. Mother Family Medical History: Cancer Additional Family Medical History / Comment(s): Mother had lung cancer. She was a lifelong smoker Medications and Allergies Home Medications Medication Instructions Recorded Confirmed Type Citalopram Hydrobromide 40 mg PO HS 09/29/14 12/15/18 History [Citalopram HBr] Levothyroxine Sodium [Synthroid] 88 mcg PO DAILY 09/29/14 12/15/18 History Multivitamins, Thera [Multivitamin 1 tab PO HS 09/29/14 12/15/18 History (formulary)] Omeprazole [PriLOSEC] 20 mg PO BID 09/29/14 12/15/18 History Simvastatin [Zocor] 40 mg PO HS 09/29/14 12/15/18 History Cyanocobalamin [Vitamin B-12] 500 mcg PO HS 11/07/18 12/15/18 History Tamsulosin HCl [Flomax] 0.4 mg PO HS@199911/07/18 12/15/18 History Vit C/E/Zn/Coppr/Lutein/Zeaxan 1 cap PO BID 11/07/18 12/15/18 History [Preservision Areds 2 Softgel] Apixaban [Eliquis] 2.5 mg PO BID tablet 11/18/18 12/15/18 Rx Docusate [Colace] 100 mg PO BID cap 11/18/18 12/15/18 Rx Insulin Aspart [NovoLOG 5 unit SQ AC-TID vial 11/18/18 12/15/18 Rx (formulary)] risperiDONE [RisperDAL] 1 mg PO BID 3 Days #6 tab 11/18/18 12/15/18 Rx Acetaminophen [Tylenol] 650 mg PO Q4H PRN 11/26/18 12/15/18 History Bismuth Subsalicylate [Kaopectate] 262 mg PO Q4H 11/26/18 12/15/18 History Loratadine [Claritin] 10 mg PO DAILY 11/26/18 12/15/18 History Melatonin 3 mg PO HS 11/26/18 12/15/18 History buPROPion [Wellbutrin] 150 mg PO DAILY 11/26/18 12/15/18 History Atenolol [Tenormin] 50 mg PO DAILY #0 tab 12/06/18 12/15/18 Rx Dicyclomine [Bentyl] 10 mg PO QID cap 12/06/18 12/15/18 Rx Ferrous Sulfate [Iron (65 MG 325 mg PO BID tab 12/06/18 12/15/18 Rx Elemental)] Finasteride [Proscar] 5 mg PO DAILY tab 12/06/18 12/15/18 Rx hydrALAZINE HCL [Apresoline] 50 mg PO TID tab 12/06/18 12/15/18 Rx Oxybutynin Chloride [Ditropan] 2.5 mg PO BID #0 tab 12/09/18 12/15/18 Rx Aspirin 81 mg PO HS 12/15/18 12/15/18 History Furosemide [Lasix] 20 mg PO DAILY 12/15/18 12/15/18 History Kelly-Lanta 30 ml PO Q6H PRN 12/15/18 12/15/18 History Insulin Aspart [NovoLOG See Protocol SQ ACHS 12/15/18 12/15/18 History (formulary)] Insulin Detemir [Levemir] 15 unit SQ DAILY 12/15/18 12/15/18 History Ipratropium/Albuterol Sulfate 1 puff INHALATION RT-QID 12/15/18 12/15/18 History [Combivent Respimat Inhaler] LORazepam [Ativan] 1 mg PO Q8H 12/15/18 12/15/18 History Lactulose [Cephulac] 20 gm PO TID PRN 12/15/18 12/15/18 History amLODIPine [Norvasc] 5 mg PO BID 12/15/18 12/15/18 History cycloSPORINE [Restasis] 1 drop BOTH EYES BID 12/15/18 12/15/18 History predniSONE See Taper PO DAILY 12/15/18 12/15/18 History Allergies Allergy/AdvReac Type Severity Reaction Status Date / Time No Known Allergies Allergy Verified 12/15/18 07:14 Surgical - Exam Vital Signs Temp Pulse Resp BP Pulse Ox 98.7 F 55 L 18 129/59 91 L 12/14/18 23:27 12/14/18 23:27 12/14/18 23:27 12/14/18 23:27 12/14/18 23:27 Results - Labs 12/20/18 07:18 12/22/18 08:00 Abnormal Lab Results - Last 24 Hours (Table) 12/20/18 12/20/18 12/21/18 Range/Units 07:18 13:30 06:36 RBC 2.77 L (4.30-5.90) m/uL Hgb 9.2 L (13.0-17.5) gm/dL Hct 29.6 L (39.0-53.0) % MCV 106.8 H (80.0-100.0) fL RDW 15.7 H (11.5-15.5) % BUN (9-20) mg/dL Creatinine (0.66-1.25) mg/dL Glucose (74-99) mg/dL POC Glucose (mg/dL) 164 H (75-99) mg/dL Calcium (8.4-10.2) mg/dL Urine Protein 1+ H (Negative) Urine Blood Small H (Negative) Ur Leukocyte Esterase Moderate H (Negative) Urine RBC 11 H (0-5) /hpf Urine WBC 22 H (0-5) /hpf Urine Yeast (Budding) Rare H (None) /hpf 12/21/18 12/21/18 Range/Units 09:22 10:48 RBC (4.30-5.90) m/uL Hgb (13.0-17.5) gm/dL Hct (39.0-53.0) % MCV (80.0-100.0) fL RDW (11.5-15.5) % BUN 31 H (9-20) mg/dL Creatinine 1.94 H (0.66-1.25) mg/dL Glucose 225 H (74-99) mg/dL POC Glucose (mg/dL) 209 H (75-99) mg/dL Calcium 8.2 L (8.4-10.2) mg/dL Urine Protein (Negative) Urine Blood (Negative) Ur Leukocyte Esterase (Negative) Urine RBC (0-5) /hpf Urine WBC (0-5) /hpf Urine Yeast (Budding) (None) /hpf Microbiology - Last 24 Hours (Table) 12/15/18 00:13 Blood Culture - Final Blood No Growth after 144 hours Diabetes panel 12/21/18 Range/Units 09:22 Sodium 138 (137-145) mmol/L Potassium 4.1 (3.5-5.1) mmol/L Chloride 103 (98-107) mmol/L Carbon Dioxide 30 (22-30) mmol/L BUN 31 H (9-20) mg/dL Creatinine 1.94 H (0.66-1.25) mg/dL Glucose 225 H (74-99) mg/dL Calcium 8.2 L (8.4-10.2) mg/dL Calcium panel 12/21/18 Range/Units 09:22 Calcium 8.2 L (8.4-10.2) mg/dL Pituitary panel 12/21/18 Range/Units 09:22 Sodium 138 (137-145) mmol/L Potassium 4.1 (3.5-5.1) mmol/L Chloride 103 (98-107) mmol/L Carbon Dioxide 30 (22-30) mmol/L BUN 31 H (9-20) mg/dL Creatinine 1.94 H (0.66-1.25) mg/dL Glucose 225 H (74-99) mg/dL Calcium 8.2 L (8.4-10.2) mg/dL Adrenal panel 12/21/18 Range/Units 09:22 Sodium 138 (137-145) mmol/L Potassium 4.1 (3.5-5.1) mmol/L Chloride 103 (98-107) mmol/L Carbon Dioxide 30 (22-30) mmol/L BUN 31 H (9-20) mg/dL Creatinine 1.94 H (0.66-1.25) mg/dL Glucose 225 H (74-99) mg/dL Calcium 8.2 L (8.4-10.2) mg/dL - Imaging Abdominal x-ray: image reviewed (Abdominal x-ray also reviewed and unremarkable with normal bowel gas pattern.) Assessment and Plan (1) Cholelithiasis Current Visit: Yes Status: Acute Code(s): K80.20 - CALCULUS OF GALLBLADDER W /O CHOLECYSTITIS W/O OBSTRUCTION SNOMED Code(s): 815256830 (2) Epigastric pain Current Visit: Yes Status: Acute Code(s): R10.13 - EPIGASTRIC PAIN SNOMED Code(s): 50895126 (3) Altered mental status Current Visit: Yes Status: Acute Code(s): R41.82 - ALTERED MENTAL STATUS, UNSPECIFIED SNOMED Code(s): 337008898 (4) Acute on chronic diastolic CHF (congestive heart failure) Current Visit: No Status: Acute Code(s): I50.33 - ACUTE ON CHRONIC DIASTOLIC (CONGESTIVE) HEART FAILURE SNOMED Code(s): 405212695 (5) Acute renal failure (ARF) Current Visit: No Status: Acute Code(s): N17.9 - ACUTE KIDNEY FAILURE, UNSPECIFIED SNOMED Code(s): 35967232 (6) CAD (coronary artery disease) Current Visit: No Status: Acute Code(s): I25.10 - ATHSCL HEART DISEASE OF [place] CORONARY ARTERY W/O ANG PCTRS SNOMED Code(s): 51936891 (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 Current Visit: No Status: Acute Priority: Low Code(s): F32.3 - MAJOR DEPRESSV DISORD, SINGLE EPSD, SEVERE W PSYCH FEATURES SNOMED Code(s): 90182313
[2018-12-21 13:48] VITALS: BMI 27.1
--- NOTE | 2018-12-21 13:49 | P.PN ---
Subjective Progress Note Date: 12/21/18 Seen and examined for the follow-up of chronic kidney disease. Still has upper extremity edema. Objective - Vital Signs Vital signs: Vital Signs Temp 97.8 F 12/21/18 06:28 Pulse 61 12/21/18 12:39 Resp 16 12/21/18 08:00 BP 167/67 12/21/18 06:28 Pulse Ox 94 L 12/21/18 06:28 Intake & Output 12/20/18 12/21/18 12/21/18 18:59 06:59 18:59 Intake Total 240 Output Total 800 300 400 Balance -800 -300 -160 Intake: Oral 240 Output: Urine 800 300 400 Other: Voiding Method Indwelling Catheter Indwelling Catheter Indwelling Catheter - Exam Lying in bed no acute distress S1-S2 heard Diminished breath sounds Edema - Labs CBC & Chem 7: 12/20/18 07:18 12/21/18 09:22 Labs: Abnormal Lab Results - Last 24 Hours (Table) 12/20/18 12/20/18 12/21/18 Range/Units 07:18 13:30 06:36 RBC 2.77 L (4.30-5.90) m/uL Hgb 9.2 L (13.0-17.5) gm/dL Hct 29.6 L (39.0-53.0) % MCV 106.8 H (80.0-100.0) fL RDW 15.7 H (11.5-15.5) % BUN (9-20) mg/dL Creatinine (0.66-1.25) mg/dL Glucose (74-99) mg/dL POC Glucose (mg/dL) 164 H (75-99) mg/dL Calcium (8.4-10.2) mg/dL Urine Protein 1+ H (Negative) Urine Blood Small H (Negative) Ur Leukocyte Esterase Moderate H (Negative) Urine RBC 11 H (0-5) /hpf Urine WBC 22 H (0-5) /hpf Urine Yeast (Budding) Rare H (None) /hpf 12/21/18 12/21/18 Range/Units 09:22 10:48 RBC (4.30-5.90) m/uL Hgb (13.0-17.5) gm/dL Hct (39.0-53.0) % MCV (80.0-100.0) fL RDW (11.5-15.5) % BUN 31 H (9-20) mg/dL Creatinine 1.94 H (0.66-1.25) mg/dL Glucose 225 H (74-99) mg/dL POC Glucose (mg/dL) 209 H (75-99) mg/dL Calcium 8.2 L (8.4-10.2) mg/dL Urine Protein (Negative) Urine Blood (Negative) Ur Leukocyte Esterase (Negative) Urine RBC (0-5) /hpf Urine WBC (0-5) /hpf Urine Yeast (Budding) (None) /hpf Microbiology - Last 24 Hours (Table) 12/15/18 00:13 Blood Culture - Final Blood No Growth after 144 hours Assessment and Plan Assessment: #1 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 #2 urinary retention status post Lamas and Flomax #3 diastolic CHF #4 edema #5 hypertension with chronic kidney disease Plan: #1 change Lasix oral to IV twice a day #2 repeat labs in the morning #3 avoid nephrotoxic agents and hypotensive episodes
--- NOTE | 2018-12-21 13:55 | XR ---
EXAMINATION TYPE: XR abdomen 1V DATE OF EXAM: 12/21/2018 1:27 PM CLINICAL HISTORY: Abdominal pain not further specified. TECHNIQUE: Two supine KUB images of the abdomen are obtained. COMPARISON: CT abdomen pelvis December 15, 2018. Most recent abdominal x-ray December 16, 2018 FINDINGS: Exam slightly suboptimal due to patient's large body habitus. Gas and contrast material rem ains present in nondistended colon along the periphery. Scattered gas is seen in nondistended small b owel loops throughout the abdomen. Multilevel spurring in the thoracolumbar spine is present. Lung ba ses are clear on current study. IMPRESSION: Overall nonobstructive bowel gas pattern remains present.
[2018-12-21 17:01] LABS: Glucose,Whole Blood 80 mg/dL (75-99)
--- NOTE | 2018-12-21 17:43 | US ---
EXAMINATION TYPE: US gallbladder DATE OF EXAM: 12/21/2018 COMPARISON: CT December 15, 2018 CLINICAL HISTORY: right upper quadrant abdominal pain. Pain EXAM MEASUREMENTS: Liver Length: 15.0 cm Gallbladder Wall: 0.4 cm CBD: 0.5 cm Right Kidney: 9.6 x 4.9 x 3.9 cm Pancreas: Obscured by bowel gas Liver: Left lobe gassed out/ right lobe appeared wnl Gallbladder: gallstones at dependent portion, ?slightly distended, wall slightly thickened, pt unab le to roll LLD position Evidence for sonographic Richter's sign: No CBD: wnl Right Kidney: Visualized portions appeared wnl Suboptimal study due to overlying bowel gas. Pancreas is suboptimally seen on images saved. Visualize d liver is heterogeneous. Gallbladder is dilated with distended margins without definitive shadowing mobile gallstones. No surrounding wall thickening is seen. No surrounding ascites is noted. Limited i mages of right kidney show no gross hydronephrosis. IMPRESSION: Suboptimal study without definitive shadowing mobile gallstones or ultrasound evidence fo r acute cholecystitis.
[2018-12-21 19:35] LABS: Glucose,Whole Blood 78 mg/dL (75-99)
[2018-12-21 20:01] LABS: Glucose,Whole Blood 87 mg/dL (75-99)
[2018-12-21] MEDS: FUROSEMIDE 10 MG/ML 4 ML VIAL IV SCH (20:07)
[2018-12-21] MEDS: TAMSULOSIN 0.4 MG CAP.ER.24H PO SCH (20:07)
[2018-12-21] MEDS: CITALOPRAM HYDROBROMIDE 20 MG TAB PO SCH (20:08)
[2018-12-21] MEDS: ATORVASTATIN 20 MG TAB PO SCH (20:08)
[2018-12-21] MEDS: ASPIRIN 81 MG PO SCH (20:08)
[2018-12-21] MEDS: MULTIVITAMINS, THERA 1 EACH TAB PO SCH (20:08)
[2018-12-21] MEDS: CYANOCOBALAMIN 500 MCG TAB PO SCH (20:08)
[2018-12-21] MEDS: MELATONIN 3 MG TABLET PO SCH (20:08)
[2018-12-21 20:22] LABS: Glucose,Whole Blood 116 mg/dL (75-99)
[2018-12-22] MEDS: ACETAMINOPHEN TAB 325 MG TAB PO PRN ×2 (02:48→15:15)
[2018-12-22] MEDS: LEVOTHYROXINE 88 MCG TAB PO SCH (05:21)
[2018-12-22] MEDS: IPRATROPIUM-ALBUTEROL 3 ML NEB INHALATION SCH ×4 (08:30→19:37)
[2018-12-22 08:34] LABS: Glucose,Whole Blood 152 mg/dL (75-99)
[2018-12-22 09:12] LABS: Anion Gap 8 mmol/L; Blood Urea Nitrogen 26 mg/dL (9-20); Calcium 8.1 mg/dL (8.4-10.2); Carbon Dioxide 30 mmol/L (22-30); Chloride 100 mmol/L (98-107); Glucose 130 mg/dL (74-99); Sodium 138 mmol/L (137-145)
[2018-12-22 10:27] LABS: Basophils % (A) 0 %; Eosinophils # (A) 0.1 k/uL (0-0.7); Eosinophils % (A) 2 %; HCT 31.4 % (39.0-53.0); HGB 9.7 gm/dL (13.0-17.5); Hypochromasia Slight; Lymphocytes # (A) 1.4 k/uL (1.0-4.8); Lymphocytes % (A) 19 %; MCH 31.8 pg (25.0-35.0); MCHC 30.9 g/dL (31.0-37.0); MCV 102.7 fL (80.0-100.0); Macrocytosis Slight; Mean Platelet Volume 7.8; Monocytes # (A) 0.4 k/uL (0-1.0); Monocytes % (A) 5 %; Neutrophils # (A) 5.2 k/uL (1.3-7.7); Neutrophils % (A) 72 %; Platelet Count 177 k/uL (150-450); RBC 3.06 m/uL (4.30-5.90); WBC 7.2 k/uL (3.8-10.6)
[2018-12-22 10:38] LABS: ALT 40 U/L (21-72); AST 28 U/L (17-59); Albumin 2.6 g/dL (3.5-5.0); Alkaline Phosphatase 75 U/L (38-126); Amylase <30 U/L (30-110); Lipase 104 U/L (23-300); Total Bilirubin 0.6 mg/dL (0.2-1.3); Total Protein 4.9 g/dL (6.3-8.2)
[2018-12-22 11:13] LABS: Glucose,Whole Blood 202 mg/dL (75-99)
--- NOTE | 2018-12-22 11:24 | NM ---
EXAMINATION TYPE: NM hepatobiliary wo EF DATE OF EXAM: 12/22/2018 COMPARISON: NONE HISTORY: Right upper quadrant pain TECHNIQUE: After the intravenous administration of 5.26 mCi Tc 99m Mebrofenin hepatobiliary scintigra phy is performed. Patient refused imaging beyond Seng minutes and therefore examination is incomp lete. Immediate images post injection. FINDINGS: The gallbladder is visualized between 8 and 10 minutes. Common bile duct is visualized at 14 minutes. Small bowel activity not clearly documented. IMPRESSION: Incomplete examination. Patient refused imaging beyond 16 minutes.
--- NOTE | 2018-12-22 11:28 | CT ---
EXAMINATION TYPE: CT abdomen pelvis wo con DATE OF EXAM: 12/22/2018 COMPARISON: 12/15/2018 HISTORY: Increased abdominal pain CT DLP: 741.4 mGycm Examination of the solid and hollow viscera is limited given the lack of contrast. FINDINGS: LUNG BASES: Persistent basilar effusions and compressive atelectasis. Groundglass infiltrates noted. There is evidence of cardiomegaly. LIVER/GB: Small gallstones identified. No space-occupying hepatic lesion. PANCREAS: No pancreatic mass identified. No inflammatory process seen. SPLEEN: No evidence for splenomegaly. No intrasplenic lesions seen. ADRENALS: No adrenal nodules identified. No evidence for thickening. KIDNEYS: Hypoattenuating left renal lesions may reflect cysts. No nephrolithiasis. No hydronephrosis. Lamas balloon catheter seen within the urinary bladder. BOWEL: Appendix has a normal appearance. No evidence of bowel obstruction. No inflammatory process. M oderate sigmoid diverticulosis without diverticulitis. Lymph nodes: No evidence for adenopathy greater than 1 cm. Abdominal aorta: Atheromatous changes seen. No evidence for aneurysm. Genital organs: No significant abnormality. Other: No significant abnormality. IMPRESSION: 1. No acute process identified. 2. Cholelithiasis. 3. Basilar pleural effusions and compressive atelectasis and scattered infiltrates.
[2018-12-22] MEDS: INSULIN ASPART 100 UNIT/ML 1 ML 10 ML VIAL SQ SCH ×7 (11:32→20:11)
[2018-12-22] MEDS: INSULIN DETEMIR 100 UNIT/ML 10 ML VIAL SQ SCH (11:35)
[2018-12-22] MEDS: buPROPion 75 MG TAB PO SCH (12:03)
[2018-12-22] MEDS: LORazepam 0.5 MG TAB PO SCH ×2 (12:03→18:50)
[2018-12-22] MEDS: FINASTERIDE 5 MG TAB PO SCH (12:04)
[2018-12-22] MEDS: LORATADINE 10 MG TAB PO SCH (12:04)
[2018-12-22] MEDS: DOCUSATE 100 MG CAP PO SCH ×2 (12:04→20:10)
[2018-12-22] MEDS: APIXABAN 2.5 MG TABLET PO SCH ×2 (12:04→20:09)
[2018-12-22] MEDS: PANTOPRAZOLE 40 MG TABLET PO SCH (12:04)
[2018-12-22] MEDS: hydrALAZINE HCL 50 MG TAB PO SCH ×2 (12:05→18:51)
[2018-12-22] MEDS: VIT A,C & E-LUTEIN-MINERALS 1 EACH TAB PO SCH ×2 (12:05→20:11)
[2018-12-22] MEDS: FUROSEMIDE 10 MG/ML 4 ML VIAL IV SCH ×2 (12:05→20:11)
[2018-12-22] MEDS: cycloSPORINE 0.05% OPHTH 0.4 ML DROPERETTE BOTH EYES SCH ×2 (12:05→22:28)
[2018-12-22] MEDS: amLODIPine 5 MG TAB PO SCH ×2 (12:05→22:28)
[2018-12-22] MEDS: OXYBUTYNIN CHLORIDE 5 MG TAB PO SCH ×2 (12:06→20:09)
--- NOTE | 2018-12-22 12:06 | P.PN ---
Subjective Progress Note Date: 12/22/18 CHIEF COMPLAINT: Abdominal pain HISTORY OF PRESENT ILLNESS: The patient is a 83 year old male re-admitted at least 3 times in 2 months. He has history of dementia including schizophrenia. Patient had been moderately agitated as he had not gotten his medications for his mood. He is on suicide precautions. Patient had refused completion of his HIDA scan. Emergent computed tomography scan obtained. Patient is now comfortable with family at bedside. He has been nothing by mouth since last night. PHYSICAL EXAM: VITAL SIGNS: Reviewed GENERAL: Well-developed in no acute distress. HEENT: No sclera icterus. Extraocular movements grossly intact. Moist buccal mucosa. Head is atraumatic, normocephalic. Hears conversational speech. No nasal drainage. NECK: Supple without lymphadenopathy. CHEST: Non-labored respirations and equal bilateral excursions. CARDIOVASCULAR: Palpable 2+ radial pulses. ABDOMEN: Soft. Nondistended. Nontender. No peritonitis. MUSCULOSKELETAL: No clubbing, cyanosis. Bilateral upper extremity edema improved. NEUROLOGIC: No focal or lateralizing signs. Cranial nerves II through XII grossly intact. PSYCH: Flat affect. Alert and oriented to person. SKIN: Well perfused. Good skin turgor. LABS: Reviewed STUDIES: Reviewed ASSESSMENT: 1. Abdominal pain 2. Cholelithiasis 3. Stage 3/4 acute on chronic renal insufficiency 4. Chronic anticoagulant PLAN: 1. He is on a anticoagulant that will need reversal agent K-Centra only for acute bleeds. 2. Otherwise, low-fat diet. No immediate surgical intervention as patient is extremely high risk. 3. He will need to be off current anticoagulation at least 7 days prior to any surgical intervention for gallstones. At this time, he has no acute abdominal pain. 4. Separately, outpatient cholecystectomy may be feasible providing patient stays on a low-fat diet. Objective - Vital Signs Vital signs: Vital Signs Temp 97.7 F 12/22/18 08:00 Pulse 69 12/22/18 08:40 Resp 18 12/22/18 08:00 BP 119/59 12/22/18 08:00 Pulse Ox 98 12/22/18 08:00 Intake & Output 12/21/18 12/22/18 12/22/18 18:59 06:59 18:59 Intake Total 240 340 Output Total 1200 1200 Balance -960 -860 Weight 83.3 kg Intake: Oral 240 340 Output: Urine 1200 1200 Other: Voiding Method Indwelling Catheter - Labs CBC & Chem 7: 12/22/18 08:00 12/22/18 08:00 Labs: Abnormal Lab Results - Last 24 Hours (Table) 12/21/18 12/22/18 12/22/18 Range/Units 20:11 08:00 08:00 RBC 3.06 L (4.30-5.90) m/uL Hgb 9.7 L (13.0-17.5) gm/dL Hct 31.4 L (39.0-53.0) % MCV 102.7 H (80.0-100.0) fL MCHC 30.9 L (31.0-37.0) g/dL BUN 26 H (9-20) mg/dL Creatinine 1.84 H (0.66-1.25) mg/dL Glucose 130 H (74-99) mg/dL POC Glucose (mg/dL) 116 H (75-99) mg/dL Calcium 8.1 L (8.4-10.2) mg/dL Total Protein 4.9 L (6.3-8.2) g/dL Albumin 2.6 L (3.5-5.0) g/dL Amylase <30 L (30-110) U/L 12/22/18 12/22/18 Range/Units 08:21 11:00 RBC (4.30-5.90) m/uL Hgb (13.0-17.5) gm/dL Hct (39.0-53.0) % MCV (80.0-100.0) fL MCHC (31.0-37.0) g/dL BUN (9-20) mg/dL Creatinine (0.66-1.25) mg/dL Glucose (74-99) mg/dL POC Glucose (mg/dL) 152 H 202 H (75-99) mg/dL Calcium (8.4-10.2) mg/dL Total Protein (6.3-8.2) g/dL Albumin (3.5-5.0) g/dL Amylase (30-110) U/L Microbiology - Last 24 Hours (Table) 12/21/18 12:45 Urine Culture - Preliminary Urine,Catheterized - Imaging and Cardiology CT scan - abdomen: report reviewed, image reviewed CT scan - pelvis: report reviewed, image reviewed (Imaging reviewed consistent with no acute abdominal process. Gallstones also confirmed.) Assessment and Plan (1) Cholelithiasis Current Visit: Yes Status: Acute Code(s): K80.20 - CALCULUS OF GALLBLADDER W /O CHOLECYSTITIS W/O OBSTRUCTION SNOMED Code(s): 137012262 (2) Epigastric pain Current Visit: Yes Status: Acute Code(s): R10.13 - EPIGASTRIC PAIN SNOMED Code(s): 38002965 (3) Altered mental status Current Visit: Yes Status: Acute Code(s): R41.82 - ALTERED MENTAL STATUS, UNSPECIFIED SNOMED Code(s): 164264993 (4) Acute on chronic diastolic CHF (congestive heart failure) Current Visit: No Status: Acute Code(s): I50.33 - ACUTE ON CHRONIC DIASTOLIC (CONGESTIVE) HEART FAILURE SNOMED Code(s): 025024559 (5) Acute renal failure (ARF) Current Visit: No Status: Acute Code(s): N17.9 - ACUTE KIDNEY FAILURE, UNSPECIFIED SNOMED Code(s): 11576278 (6) CAD (coronary artery disease) Current Visit: No Status: Acute Code(s): I25.10 - ATHSCL HEART DISEASE OF [place] CORONARY ARTERY W/O ANG PCTRS SNOMED Code(s): 36200030 (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 Current Visit: No Status: Acute Priority: Low Code(s): F32.3 - MAJOR DEPRESSV DISORD, SINGLE EPSD, SEVERE W PSYCH FEATURES SNOMED Code(s): 11504878 (8) Schizophrenia Current Visit: Yes Status: Acute Code(s): F20.9 - SCHIZOPHRENIA, UNSPECIFIED SNOMED Code(s): 33512487 (9) Suicidal behavior Current Visit: Yes Status: Acute Code(s): R46.89 - OTHER SYMPTOMS AND SIGNS INVOLVING APPEARANCE AND BEHAVIOR SNOMED Code(s): 370032934 (10) Medically noncompliant Current Visit: Yes Status: Acute Code(s): Z91.19 - PATIENT'S NONCOMPLIANCE W OTH MEDICAL TREATMENT AND REGIMEN SNOMED Code(s): 669110634
[2018-12-22] MEDS: DICYCLOMINE 10 MG CAP PO PRN ×3 (12:22→18:50)
[2018-12-22] MEDS: guaiFENesin 600 MG TABLET.ER PO PRN (12:58)
[2018-12-22] MEDS: HYDROcodone/APAP 5-325MG 1 EACH TAB PO PRN ×2 (12:58→20:10)
--- NOTE | 2018-12-22 12:58 | P.PN ---
Subjective Progress Note Date: 12/22/18 Seen and examined for the follow-up of chronic kidney disease. Good urine output edema getting better with Lasix Objective - Vital Signs Vital signs: Vital Signs Temp 97.7 F 12/22/18 08:00 Pulse 91 12/22/18 12:35 Resp 18 12/22/18 08:00 BP 147/72 12/22/18 12:16 Pulse Ox 98 12/22/18 08:00 Intake & Output 12/21/18 12/22/18 12/22/18 18:59 06:59 18:59 Intake Total 240 340 Output Total 1200 1200 700 Balance -960 -860 -700 Weight 83.3 kg Intake: Oral 240 340 Output: Urine 1200 1200 700 Other: Voiding Method Indwelling Catheter - Exam Lying in bed no acute distress S1-S2 heard Diminished breath sounds Edema - Labs CBC & Chem 7: 12/22/18 08:00 12/22/18 08:00 Labs: Abnormal Lab Results - Last 24 Hours (Table) 12/21/18 12/22/18 12/22/18 Range/Units 20:11 08:00 08:00 RBC 3.06 L (4.30-5.90) m/uL Hgb 9.7 L (13.0-17.5) gm/dL Hct 31.4 L (39.0-53.0) % MCV 102.7 H (80.0-100.0) fL MCHC 30.9 L (31.0-37.0) g/dL BUN 26 H (9-20) mg/dL Creatinine 1.84 H (0.66-1.25) mg/dL Glucose 130 H (74-99) mg/dL POC Glucose (mg/dL) 116 H (75-99) mg/dL Calcium 8.1 L (8.4-10.2) mg/dL Total Protein 4.9 L (6.3-8.2) g/dL Albumin 2.6 L (3.5-5.0) g/dL Amylase <30 L (30-110) U/L 12/22/18 12/22/18 Range/Units 08:21 11:00 RBC (4.30-5.90) m/uL Hgb (13.0-17.5) gm/dL Hct (39.0-53.0) % MCV (80.0-100.0) fL MCHC (31.0-37.0) g/dL BUN (9-20) mg/dL Creatinine (0.66-1.25) mg/dL Glucose (74-99) mg/dL POC Glucose (mg/dL) 152 H 202 H (75-99) mg/dL Calcium (8.4-10.2) mg/dL Total Protein (6.3-8.2) g/dL Albumin (3.5-5.0) g/dL Amylase (30-110) U/L Microbiology - Last 24 Hours (Table) 12/21/18 12:45 Urine Culture - Preliminary Urine,Catheterized Assessment and Plan Assessment: #1 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 #2 urinary retention status post Lamas and Flomax #3 diastolic CHF #4 edema #5 hypertension with chronic kidney disease Plan: #1 continue with Lasix IV 40 mg twice a day. #2 renal function stable currently at baseline #3 avoid nephrotoxic agents and hypotensive episodes
[2018-12-22] MEDS: BISMUTH SUBSALICYLATE 4,192 MG/240 ML BOTTLE PO PRN (15:13)
[2018-12-22 17:11] LABS: Glucose,Whole Blood 166 mg/dL (75-99)
[2018-12-22 19:49] LABS: Glucose,Whole Blood 197 mg/dL (75-99)
[2018-12-22] MEDS: CYANOCOBALAMIN 500 MCG TAB PO SCH (20:09)
[2018-12-22] MEDS: ASPIRIN 81 MG PO SCH (20:09)
[2018-12-22] MEDS: CITALOPRAM HYDROBROMIDE 20 MG TAB PO SCH (20:09)
[2018-12-22] MEDS: MULTIVITAMINS, THERA 1 EACH TAB PO SCH (20:09)
[2018-12-22] MEDS: TAMSULOSIN 0.4 MG CAP.ER.24H PO SCH (20:09)
[2018-12-22] MEDS: ATORVASTATIN 20 MG TAB PO SCH (20:10)
[2018-12-22] MEDS: MELATONIN 3 MG TABLET PO SCH (20:10)
[2018-12-23] MEDS: hydrALAZINE HCL 50 MG TAB PO SCH ×4 (00:15→23:03)
[2018-12-23] MEDS: LORazepam 0.5 MG TAB PO SCH ×3 (00:15→17:45)
[2018-12-23 07:03] LABS: Glucose,Whole Blood 171 mg/dL (75-99)
[2018-12-23 07:12] LABS: Calcium 8.5 mg/dL (8.4-10.2); Potassium 3.7 mmol/L (3.5-5.1)
[2018-12-23] MEDS: INSULIN ASPART 100 UNIT/ML 1 ML 10 ML VIAL SQ SCH ×7 (08:07→23:02)
[2018-12-23] MEDS: LEVOTHYROXINE 88 MCG TAB PO SCH (08:07)
[2018-12-23] MEDS: PANTOPRAZOLE 40 MG TABLET PO SCH (08:08)
[2018-12-23] MEDS: LORATADINE 10 MG TAB PO SCH (08:08)
[2018-12-23] MEDS: FINASTERIDE 5 MG TAB PO SCH (08:08)
[2018-12-23] MEDS: FUROSEMIDE 10 MG/ML 4 ML VIAL IV SCH ×2 (08:09→20:53)
[2018-12-23] MEDS: OXYBUTYNIN CHLORIDE 5 MG TAB PO SCH ×2 (08:09→20:44)
[2018-12-23] MEDS: DOCUSATE 100 MG CAP PO SCH ×2 (08:09→20:44)
[2018-12-23] MEDS: IPRATROPIUM-ALBUTEROL 3 ML NEB INHALATION SCH ×4 (08:24→21:05)
[2018-12-23] MEDS ORDERED: traMADol 50 MG TAB PO PRN (08:56)
--- NOTE | 2018-12-23 09:21 | P.PN ---
Subjective Patient is a 83-year-old male with a known history of diabetes type 2, hypertension, hyperlipidemia, history of SC, obstructive sleep apnea on CPAP, hypothyroidism, macular degeneration of bilateral eyes, coronary artery disease with stent placement history and anxiety/depression and schizophrenia who is currently staying at extended care facility since CVA in October 2018, was transferred to ER due to altered mental status. Patient also having shortness of breath. No fever or chills. Patient was also having right-sided abdominal rash. No nausea vomiting. Patient does eat with one-to-one feeding. No cough or sputum production. No aspiration as per staff. CT head showed cerebral atrophy and chronic small was ischemia. No change compared to old exam. There is some white matter hypodensity in the anterior right internal capsule consistent with old olecranon infarct. CT abdomen and pelvis showed bilateral pleural effusions and basilar pulmonary consolidation and atelectasis. Subcutaneous edema around the abdomen that could be related to congestive heart failure. There is probably small gallstones. Collect diverticulosis without diverticulitis. No acute abnormality within the abdominal pelvis. This patient is an 83-year-old man transferred here from [facility] to be evaluated for change in his mentation, change in the color of the skin to the right side of his abdomen, and possibly shortness of breath. The patient when I interview him does not give any complaints. He denies having pain anywhere. He is not otherwise able to give much in way history appearing to be having some dementia versus delirium. Chest x-ray showed right lower lobe infiltrate and atelectasis appears to be worse than old exam. No gross heart failure. EKG showed sinus bradycardia Patient has been on oxygen since admission to extended care [facility]. 12/16/2018 Patient is lying in bed, looks lethargic. He is alert awake and alert oriented to person and partially to time and place, he knows in the hospital but could not remember the name of the hospital, and he knew the month but not the ureter gait. He still dyspneic on 4 L oxygen via nasal cannula. He has dry cough but denies chest pain. Patient has right sided abdominal redness and warmth and periumbilical tenderness. He is saturating in the low 90s on 4 L via nasal cannula. No fever, no tachycardia and is breathing quietly at 16 BPM. Labs reviewed showing no leukocytosis. Anemia with hemoglobin stable around 8.6. His creatinine is stable at 1.8. Electrolytes within normal limits. 12/17/2018 pt became bradycardic in 40s and needed high flow oxygen yesterday and he was transferred to [facility], pt still feels sick today , his heart rate improved to 80s and he still dyspeic although he feels a little better , he denies chest pain , he has dry cough. no abdominal pain . his rash is his abdomen is improved , he has harper catheter for urinary retention and he is on flomax already. cardiology team evaluated pt for acute D.CHF , pt to continue with lasix for now. appellate law clerk evaluation is appreciated , pulmonary team are following the pt as well while he is maintained on antibiotic. pt today feels depressed with suicidal ideation " i'd better be than like this " , psych consult is called and sitter at bed side 12/18/2018 Patient was sitting in chair less dyspneic and denying chest pain. No abdominal pain or nausea vomiting. Tolerating diet well. Heart rate at 56. Blood pressure 163. And saturating 98% on 4 L oxygen. Labs reviewed showing the clip C of 8.7K, hemoglobin 8.9. Creatinine went up to 2.36. Patient has Harper catheter for his urinary retention. He is on Lasix 40 mg IV 3 times a day. Equipment Coordinator team are following the patient recommended to change Lasix to 40 mg orally once daily. Sitter at bedside. Patient looks less depressed today, psychiatric evaluation is pending regarding his suicidal ideation. He continued to be on Levaquin and Zosyn for his pneumonia. He is anticoagulated with Eliquis 2.5 mg. 12/19/2018 Patient with mild dyspnea but no chest pain. No abdominal pain nausea vomiting. He had hard bowel movement this morning. He is a little tachycardic this morning 104-2122, compared to bradycardia yesterday 56-60. Patient is being evaluated by cardiology team. Labs are still pending, creatinine is 2.3 and we decrease his lack 6 from 3 times a day to once a day orally. [facility]. pt denies suicidal ideation and less depressed today.sitter is DC already b y psychiatrist. 12/20/2018 patient states that he is the same as yesterday regarding his breathing and no chest pain. For the last 2 days he was complaining of from suprapubic pain and tenderness. Patient has Harper catheter and draining about 200 mL with dark- colored urine. Urinalysis previously was negative. We going to recheck urinalysis and bladder scan. Increase his pain medication of Narco every 8 hours when necessary. His rash and his abdominal wall is improving and feeding away. Patient denies depression 2 days with no suicidal ideation. His currently on 4 L oxygen via nasal cannula, rest of Vitas looks stable. His creatinine is improving to 2.0 today. Patient is supposed to go to [facility]. Patient has been evaluated by cardiology, pulmonology and nephrology team and their input is appreciated. Patient remains on Zosyn and Levaquin, his Lasix decreased to 40 mg by mouth daily. Also he is on Eliquis. 12/21/2018 Patient with no chest pain or dyspnea. However he complains from abdominal pain and absent which is most suprapubic and periumbilical. It looks mild to moderate with no rebound tenderness and abdominal exam looks soft. Tolerating diet well, he had hard bowel movement this morning. Urine analysis came back positive for infection and he was already started on Levaquin. Hemodynamically stable. Creatinine 1.9. Urine culture is ordered however patient already got antibiotic, which might make it. Negative urine culture. We'll do abdominal x- ray and call surgical consult. Patient is suicidal again and sitter was placed at bedside. Discussed with family, and son at bedside and all their questions were answered to their satisfaction. Discontinue Zosyn 12/22/2018 Today patient is complaining of from increasing right-sided abdominal pain and associated with tenderness and guarding on exam. No much nausea vomiting. Little dyspnea with no chest pain. Pulmonary and surgical teams R following the case. The surgical team recommended HIDA scan and in view of dilated gallbladder on the ultrasound, but no gallstone. HIDA scan is already ordered by the surgical team. We will do also CAT scan of the abdomen without contrast. Were contacting the surgical team for close follow-up. 12/23/2018 patient is breathing quietly today. Denies chest pain. He has some dry cough with no phlegm. Harper catheter and with improved suprapubic tenderness. However his main concern is his generalized abdominal pain which has been going on for 2 weeks. Surgical evaluated patient and informed and was stable with no need for surgical intervention. He has dilated gallbladder with gallstones but no signs symptoms of acute cholecystitis. Recommend cholecystectomy if patient wishes but he has to hold his anticoagulation for 5 days prior to surgery, patient was informed with this recommendation and will think about it.patient with no nausea vomiting, his pain is not related to food although he has less appetite. He has bowel movements every 2 days which is usual for him. This pain is mild to moderate in severity, patient says now, does not work for him so it was switched to Ultram.. Patient continue on Levaquin for his UTI. Besides that she has depression , he states he wants to but not killing himself. sitter at bed side, we will call psych follow up for re-evaluation , also we will call GI consult for his generalized abd pain. he remains on Lasix 40 mg IV twice a day. Creatinine is 1.9, at baseline. CONSTITUTIONAL: No fever, no malaise, no fatigue. HEENT: No recent visual problems or hearing problems. Denied any sore throat. CARDIOVASCULAR: No orthopnea, PND, no palpitations, no syncope. PULMONARY: no hemoptysis. GASTROINTESTINAL: Normoactive bowel sounds. NEUROLOGICAL: No headaches, no weakness, no numbness. HEMATOLOGICAL: Denies any bleeding or petechiae. GENITOURINARY: Denies any burning micturition, frequency, or urgency. MUSCULOSKELETAL/RHEUMATOLOGICAL: Denies any joint pain, swelling, or any muscle pain. ENDOCRINE: Denies any polyuria or polydipsia. Medications reviewed and include: Tylenol, albuterol, Norvasc, Eliquis, aspirin , atenolol, Lipitor, bismuth, Wellbutrin, Celexa, vitamin B12, cyclosporine ophthalmic solution, Bentyl, Colace, Proscar, Lasix, Mucinex, hydralazine, Eldora , NovoLog, Levemir insulin, lactulose, levofloxacin, levothyroxine, loratadine, Ativan, melatonin, multivitamin, oxybutynin, Protonix, Levaquin Objective - Vital Signs Vital signs: Vital Signs Temp 98.1 F 12/23/18 07:40 Pulse 76 12/23/18 08:43 Resp 16 12/23/18 07:40 BP 151/59 12/23/18 07:40 Pulse Ox 94 L 12/23/18 07:40 Intake & Output 12/22/18 12/23/18 12/23/18 18:59 06:59 18:59 Intake Total 969 565 Output Total 1700 1000 320 Balance -731 -435 -320 Intake: Oral 969 565 Output: Urine 1700 1000 320 Uretheral (Harper) 800 320 Other: Voiding Method Indwelling Catheter Indwelling Catheter # Voids 1 1 - Exam -GENERAL: The patient is alert and oriented x3, with partially to place and time , not in any acute distress. Generally weak HEENT: Pupils are round and equally reacting to light. EOMI. No scleral icterus. No conjunctival pallor. Normocephalic, atraumatic. No pharyngeal erythema. No thyromegaly. CARDIOVASCULAR: S1 and S2 present. No murmurs, rubs, or gallops. PULMONARY: Chest is clear to auscultation, no wheezing or crackles. ABDOMEN: Soft, nontender, nondistended, normoactive bowel sounds. No palpable organomegaly. MUSCULOSKELETAL: No joint swelling or deformity. EXTREMITIES: No cyanosis, clubbing, or pedal edema. NEUROLOGICAL: Gross neurological examination did not reveal any focal deficits. SKIN: No rashes. - Labs CBC & Chem 7: 12/22/18 08:00 12/23/18 06:30 Labs: Abnormal Lab Results - Last 24 Hours (Table) 12/22/18 12/22/18 12/22/18 Range/Units 08:00 08:00 11:00 RBC 3.06 L (4.30-5.90) m/uL Hgb 9.7 L (13.0-17.5) gm/dL Hct 31.4 L (39.0-53.0) % MCV 102.7 H (80.0-100.0) fL MCHC 30.9 L (31.0-37.0) g/dL Carbon Dioxide (22-30) mmol/L BUN 26 H (9-20) mg/dL Creatinine 1.84 H (0.66-1.25) mg/dL Glucose 130 H (74-99) mg/dL POC Glucose (mg/dL) 202 H (75-99) mg/dL Calcium 8.1 L (8.4-10.2) mg/dL Total Protein 4.9 L (6.3-8.2) g/dL Albumin 2.6 L (3.5-5.0) g/dL Amylase <30 L (30-110) U/L 12/22/18 12/22/18 12/23/18 Range/Units 16:58 19:35 06:30 RBC (4.30-5.90) m/uL Hgb (13.0-17.5) gm/dL Hct (39.0-53.0) % MCV (80.0-100.0) fL MCHC (31.0-37.0) g/dL Carbon Dioxide 31 H (22-30) mmol/L BUN 25 H (9-20) mg/dL Creatinine 1.95 H (0.66-1.25) mg/dL Glucose 153 H (74-99) mg/dL POC Glucose (mg/dL) 166 H 197 H (75-99) mg/dL Calcium (8.4-10.2) mg/dL Total Protein (6.3-8.2) g/dL Albumin (3.5-5.0) g/dL Amylase (30-110) U/L 12/23/18 Range/Units 06:51 RBC (4.30-5.90) m/uL Hgb (13.0-17.5) gm/dL Hct (39.0-53.0) % MCV (80.0-100.0) fL MCHC (31.0-37.0) g/dL Carbon Dioxide (22-30) mmol/L BUN (9-20) mg/dL Creatinine (0.66-1.25) mg/dL Glucose (74-99) mg/dL POC Glucose (mg/dL) 171 H (75-99) mg/dL Calcium (8.4-10.2) mg/dL Total Protein (6.3-8.2) g/dL Albumin (3.5-5.0) g/dL Amylase (30-110) U/L Microbiology - Last 24 Hours (Table) 12/21/18 12:45 Urine Culture - Final Urine,Catheterized Karla albicans Assessment and Plan Plan: Assessment: Urinary traction infection generalized abd pain , GI were called for eval right side abdominal pain and tenderness, surgical team are following the case depression with suicidal ideation, sitter at bed side chronic kidney disease stage 3 Altered mental status possible metabolic encephalopathy, improving Diabetes type 2 insulin-dependent Recent history of CVA/Lacunar infarct. Coronary artery disease history of stent placement Hypertension Hyperlipidemia History of SC History of thyroid cancer Obstructive sleep apnea not using CPAP Macular degeneration of bilateral ice Anxiety depression and schizophrenia Medical debility currently attacks and care facility Previous history of smoking Patient is on anticoagulation with Apixaban. Etiology not sure. Plan: Patient will be continued on broad-spectrum antibiotics in the form of Levaquin cardiology and pulmonary consults evaluated pt and following. we will do ct of abd and pelvis without contrast in view of his kidney disease for his abd pain , surgical team is already on the case and the recommended HIDA scan as well . pscy consult and suicidal precaution. Continue with home medications and insulin dosing. Oxygen therapy and follow up closely. Currently the current management and further recommendations based on the clinical course. Prognosis is guarded with multiple medical problems and comorbid conditions.
[2018-12-23] MEDS: INSULIN DETEMIR 100 UNIT/ML 10 ML VIAL SQ SCH (10:35)
[2018-12-23] MEDS: LEVOFLOXACIN 750 MG TAB PO SCH (10:39)
[2018-12-23] MEDS: APIXABAN 2.5 MG TABLET PO SCH ×2 (10:39→20:44)
[2018-12-23] MEDS: VIT A,C & E-LUTEIN-MINERALS 1 EACH TAB PO SCH ×2 (10:39→20:44)
[2018-12-23] MEDS: amLODIPine 5 MG TAB PO SCH ×2 (10:39→20:44)
[2018-12-23] MEDS: buPROPion 75 MG TAB PO SCH (10:39)
[2018-12-23] MEDS: ATENOLOL 25 MG TAB PO SCH (10:39)
[2018-12-23] MEDS: cycloSPORINE 0.05% OPHTH 0.4 ML DROPERETTE BOTH EYES SCH ×2 (10:40→20:44)
--- NOTE | 2018-12-23 11:22 | P.PN ---
<Leisa Leonardo Ambrocio - Last Filed: 12/23/18 11:13> Subjective Progress Note Date: 12/23/18 CHIEF COMPLAINT: Abdominal pain HISTORY OF PRESENT ILLNESS: The patient is a 83 year old male re-admitted at least 3 times in 2 months. He has history of dementia including schizophrenia. He is on suicide precautions with product safety lead at the bedside. Patient is refusing HIDA scan. Complains of generalized abdominal pain this morning but appears very comfortable. Remains on low fat diet. Patient ate a banana and some of his ensure this morning. Denies nausea or vomiting. PHYSICAL EXAM: VITAL SIGNS: Reviewed GENERAL: Well-developed in no acute distress. HEENT: No sclera icterus. Extraocular movements grossly intact. Moist buccal mucosa. Head is atraumatic, normocephalic. Hears conversational speech. No nasal drainage. NECK: Supple without lymphadenopathy. CHEST: Non-labored respirations and equal bilateral excursions. CARDIOVASCULAR: Palpable 2+ radial pulses. ABDOMEN: Soft. Nondistended. Nontender. No peritonitis. MUSCULOSKELETAL: No clubbing, cyanosis. Bilateral upper extremity edema improved. NEUROLOGIC: No focal or lateralizing signs. Cranial nerves II through XII grossly intact. PSYCH: Flat affect. Alert and oriented to person. SKIN: Well perfused. Good skin turgor. LABS: Reviewed STUDIES: Reviewed ASSESSMENT: 1. Abdominal pain 2. Cholelithiasis 3. Stage 3/4 acute on chronic renal insufficiency 4. Chronic anticoagulant PLAN: 1. Continue low fat diet 2. No immediate surgical intervention as patient is extremely high risk 3. He will need to be off current anticoagulation at least 7 days prior to any surgical intervention for gallstones 4. Possible outpatient cholecystectomy 5. Patient may follow up with Dr. Shepherd outpatient Nurse practitioner note has been reviewed by physician. Signing provider agrees with the documented findings, assessment, and plan of care. Objective - Vital Signs Vital signs: Vital Signs Temp 98.1 F 12/23/18 07:40 Pulse 76 12/23/18 08:43 Resp 16 12/23/18 07:40 BP 151/59 12/23/18 07:40 Pulse Ox 94 L 12/23/18 07:40 Intake & Output 12/22/18 12/23/18 12/23/18 18:59 06:59 18:59 Intake Total 969 565 Output Total 1700 1000 320 Balance -731 -435 -320 Intake: Oral 969 565 Output: Urine 1700 1000 320 Uretheral (Lamas) 800 320 Other: Voiding Method Indwelling Catheter Indwelling Catheter Indwelling Catheter # Voids 1 1 - Labs CBC & Chem 7: 12/22/18 08:00 12/23/18 06:30 Labs: Abnormal Lab Results - Last 24 Hours (Table) 12/22/18 12/22/18 12/22/18 Range/Units 11:00 16:58 19:35 Carbon Dioxide (22-30) mmol/L BUN (9-20) mg/dL Creatinine (0.66-1.25) mg/dL Glucose (74-99) mg/dL POC Glucose (mg/dL) 202 H 166 H 197 H (75-99) mg/dL 12/23/18 12/23/18 Range/Units 06:30 06:51 Carbon Dioxide 31 H (22-30) mmol/L BUN 25 H (9-20) mg/dL Creatinine 1.95 H (0.66-1.25) mg/dL Glucose 153 H (74-99) mg/dL POC Glucose (mg/dL) 171 H (75-99) mg/dL Microbiology - Last 24 Hours (Table) 12/21/18 12:45 Urine Culture - Final Urine,Catheterized Karla albicans Assessment and Plan (1) Altered mental status Current Visit: Yes Status: Acute Code(s): R41.82 - ALTERED MENTAL STATUS, UNSPECIFIED SNOMED Code(s): 381343076 (2) Cholelithiasis Current Visit: Yes Status: Acute Code(s): K80.20 - CALCULUS OF GALLBLADDER W /O CHOLECYSTITIS W/O OBSTRUCTION SNOMED Code(s): 023107369 (3) Medically noncompliant Current Visit: Yes Status: Acute Code(s): Z91.19 - PATIENT'S NONCOMPLIANCE W OTH MEDICAL TREATMENT AND REGIMEN SNOMED Code(s): 536856475 (4) Schizophrenia Current Visit: Yes Status: Acute Code(s): F20.9 - SCHIZOPHRENIA, UNSPECIFIED SNOMED Code(s): 35399837 (5) Suicidal behavior Current Visit: Yes Status: Acute Code(s): R46.89 - OTHER SYMPTOMS AND SIGNS INVOLVING APPEARANCE AND BEHAVIOR SNOMED Code(s): 080764975 (6) Acute renal failure (ARF) Current Visit: No Status: Acute Code(s): N17.9 - ACUTE KIDNEY FAILURE, UNSPECIFIED SNOMED Code(s): 64283412 (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 Current Visit: No Status: Acute Priority: Low Code(s): F32.3 - MAJOR DEPRESSV DISORD, SINGLE EPSD, SEVERE W PSYCH FEATURES SNOMED Code(s): 06237640 <Lucina Shepherd N - Last Filed: 12/23/18 16:43> Objective - Vital Signs Vital signs: Vital Signs Temp 98.1 F 12/23/18 07:40 Pulse 80 12/23/18 12:29 Resp 16 12/23/18 07:40 BP 151/59 12/23/18 07:40 Pulse Ox 94 L 12/23/18 07:40 Intake & Output 12/22/18 12/23/18 12/23/18 18:59 06:59 18:59 Intake Total 969 565 Output Total 1700 1000 1120 Balance -731 -435 -1120 Intake: Oral 969 565 Output: Urine 1700 1000 1120 Uretheral (Lamas) 800 1120 Other: Voiding Method Indwelling Catheter Indwelling Catheter Indwelling Catheter # Voids 1 1 - Labs CBC & Chem 7: 12/22/18 08:00 12/23/18 06:30 Labs: Abnormal Lab Results - Last 24 Hours (Table) 12/22/18 12/22/18 12/23/18 Range/Units 16:58 19:35 06:30 Carbon Dioxide 31 H (22-30) mmol/L BUN 25 H (9-20) mg/dL Creatinine 1.95 H (0.66-1.25) mg/dL Glucose 153 H (74-99) mg/dL POC Glucose (mg/dL) 166 H 197 H (75-99) mg/dL 12/23/18 12/23/18 Range/Units 06:51 11:47 Carbon Dioxide (22-30) mmol/L BUN (9-20) mg/dL Creatinine (0.66-1.25) mg/dL Glucose (74-99) mg/dL POC Glucose (mg/dL) 171 H 174 H (75-99) mg/dL Microbiology - Last 24 Hours (Table) 12/21/18 12:45 Urine Culture - Final Urine,Catheterized Karla albicans Assessment and Plan (1) Cholelithiasis Current Visit: Yes Status: Acute Code(s): K80.20 - CALCULUS OF GALLBLADDER W /O CHOLECYSTITIS W/O OBSTRUCTION SNOMED Code(s): 827503502 (2) Epigastric pain Current Visit: Yes Status: Acute Code(s): R10.13 - EPIGASTRIC PAIN SNOMED Code(s): 75005931 (3) Altered mental status Current Visit: Yes Status: Acute Code(s): R41.82 - ALTERED MENTAL STATUS, UNSPECIFIED SNOMED Code(s): 107649723 (4) Acute on chronic diastolic CHF (congestive heart failure) Current Visit: No Status: Acute Code(s): I50.33 - ACUTE ON CHRONIC DIASTOLIC (CONGESTIVE) HEART FAILURE SNOMED Code(s): 986268766 (5) Acute renal failure (ARF) Current Visit: No Status: Acute Code(s): N17.9 - ACUTE KIDNEY FAILURE, UNSPECIFIED SNOMED Code(s): 81894505 (6) CAD (coronary artery disease) Current Visit: No Status: Acute Code(s): I25.10 - ATHSCL HEART DISEASE OF [place] CORONARY ARTERY W/O ANG PCTRS SNOMED Code(s): 81532809 (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 Current Visit: No Status: Acute Priority: Low Code(s): F32.3 - MAJOR DEPRESSV DISORD, SINGLE EPSD, SEVERE W PSYCH FEATURES SNOMED Code(s): 93744544 (8) Schizophrenia Current Visit: Yes Status: Acute Code(s): F20.9 - SCHIZOPHRENIA, UNSPECIFIED SNOMED Code(s): 56557095 (9) Suicidal behavior Current Visit: Yes Status: Acute Code(s): R46.89 - OTHER SYMPTOMS AND SIGNS INVOLVING APPEARANCE AND BEHAVIOR SNOMED Code(s): 959593377 (10) Medically noncompliant Current Visit: Yes Status: Acute Code(s): Z91.19 - PATIENT'S NONCOMPLIANCE W OTH MEDICAL TREATMENT AND REGIMEN SNOMED Code(s): 267416357 Plan: Patient denies any epigastric or right upper quadrant pain at the time of my evaluation. Now he complains of left lower quadrant pain. Last bowel movement 6 days ago. He is still on a blood thinner. Recommend laxative.
[2018-12-23 11:51] LABS: Glucose,Whole Blood 174 mg/dL (75-99)
[2018-12-23] MEDS: HYDROcodone/APAP 5-325MG 1 EACH TAB PO PRN (15:03)
[2018-12-23 17:36] LABS: Glucose,Whole Blood 59 mg/dL (75-99)
[2018-12-23 17:44] LABS: Glucose,Whole Blood 167 mg/dL (75-99)
[2018-12-23] MEDS: MAGNESIUM OXIDE 400 MG TAB PO SCH (17:48)
[2018-12-23] MEDS: DICYCLOMINE 10 MG CAP PO PRN (20:44)
[2018-12-23] MEDS: ATORVASTATIN 20 MG TAB PO SCH (20:44)
[2018-12-23] MEDS: MELATONIN 3 MG TABLET PO SCH (20:44)
[2018-12-23] MEDS: MULTIVITAMINS, THERA 1 EACH TAB PO SCH (20:44)
[2018-12-23] MEDS: CITALOPRAM HYDROBROMIDE 20 MG TAB PO SCH (20:44)
[2018-12-23] MEDS: TAMSULOSIN 0.4 MG CAP.ER.24H PO SCH (20:44)
[2018-12-23] MEDS: ASPIRIN 81 MG PO SCH (20:44)
[2018-12-23] MEDS: CYANOCOBALAMIN 500 MCG TAB PO SCH (20:44)
[2018-12-23 21:07] LABS: Glucose,Whole Blood 239 mg/dL (75-99)
--- NOTE | 2018-12-23 21:45 | PN ---
PROGRESS NOTE The patient is seen for followup for chronic kidney disease. His renal function is fairly stable. Currently, his family is present is at bedside. They are feeding him. The patient denies any significant complaints. PHYSICAL EXAMINATION: Blood pressure this afternoon was 128/77, heart rate 63 per minute. Patient is afebrile. Examination of the heart S1, S2. Examination of the lungs bilateral breath sounds are heard. Abdomen is soft, nontender. Examination of lower extremities shows trace edema bilaterally. LABS: Sodium 138, potassium 3.7, BUN 25, serum creatinine 1.95, calcium 8.5. ASSESSMENT: 1. Chronic kidney disease stage IIIB secondary to diabetic kidney disease with baseline creatinine 1.8-2.2. 2. Urinary retention, currently with chronic indwelling Lamas catheter, maintained on Flomax. 3. Diastolic congestive heart failure. 4. Hypertension with chronic kidney disease. 5. Hypervolemia, maintained on IV Lasix. PLAN: Continue with diuretics. Continue to encourage increased oral intake. Continue with Flomax. Repeat labs in a.m. MMODL / IJN: [id number] /
[2018-12-24] MEDS: LORazepam 0.5 MG TAB PO SCH ×4 (00:10→23:50)
[2018-12-24] MEDS: LEVOTHYROXINE 88 MCG TAB PO SCH (05:24)
--- NOTE | 2018-12-24 06:06 | P.CONS ---
History of Present Illness - Reason for Consult Consult date: 12/23/18 Abdominal pain Requesting physician: Di Stokes - Chief Complaint Altered mental status - History of Present Illness The patient is an 83-year-old male with multiple medical comorbidities including diabetes mellitus, hypertension, hyperlipidemia, history of [place], BENI, hypothyroidism, macular degeneration, anxiety/depression and schizophrenia, and coronary artery disease who presented to the hospital from extended care facility due to altered mental status. He is currently receiving antibiotic therapy for urinary tract infection. The patient has complained of abdominal pain during his hospitalization. He was seen by the surgical service with a computed tomography scan of the abdomen ordered which was indicative of choledocholithiasis. The patient is felt to be high risk for cholecystectomy, however the procedure is being considered in the outpatient setting. The patient's abdominal pain is described as achy and diffusely across his abdomen. No radiation of the pain. No associated nausea or vomiting. The patient denies any relieving or exacerbating factors for the pain. He is currently on a bowel regimen and reporting bowel movements every 2-3 days. He reports at baseline he has bowel movements every 2-3 days as well. He denies any blood per rectum, or black tarry stools. He is also on an antispasmodic. He reports his last colonoscopy was approximately 5 years ago and denies any prior upper endoscopy. Review of Systems REVIEW OF SYSTEMS: CONSTITUTIONAL: Denies any fevers, chills, weight change or fatigue. CARDIOVASCULAR: Denies any chest pain, palpitations high or low blood pressures RESPIRATORY: Denies any hemoptysis or cough. GENITOURINARY: No dysuria or hematuria. MUSCULOSKELETAL: No weakness reported. SKIN: Denies any new rashes or lesions, jaundice or pallor. PSYCHIATRIC: The patient has a significant psychiatric history and is currently with a one-to-one sitter for suicidal ideations. NEUROLOGY: Denies headache, denies any new focal deficits. EARS/NOSE/THROAT: No recent hearing change, congestion, nasal discharge or sore throat. EYES: No pain in eyes, discharge or change in vision. GASTROINTESTINAL: As per HPI. Past Medical History Past Medical History: Coronary Artery Disease (CAD), Cancer, Diabetes Mellitus, GERD/Reflux, Hyperlipidemia, Hypertension, Myocardial Infarction ([place]), Pneumonia , Prostate Disorder, Sleep Apnea/CPAP/BIPAP, Thyroid Disorder Additional Past Medical History / Comment(s): no CPAP used, hiatal hernia, hx thyroid cancer, macular degeneration danielle eyes Last Myocardial Infarction Date:: 1999 History of Any Multi-Drug Resistant Organisms: None Reported Past Surgical History: Heart Catheterization With Stent, Joint Replacement Additional Past Surgical History / Comment(s): left knee replacement, danielle cataracts, thyroidectomy Past Anesthesia/Blood Transfusion Reactions: No Reported Reaction Additional Past Anesthesia/Blood Transfusion Reaction / Comm: clausterphobia - "uses open mri" Date of Last Stent Placement:: 1999 Past Psychological History: Anxiety, Depression, Schizophrenia Additional Psychological History / Comment(s): Pt currently is staying at [facility] for rehab since 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 They are getting him up with walker and he just started using the bars. Pt also has been on oxygen since getting to rehab. He no longer drives, family can take him to appts. Smoking Status: Former smoker Past Alcohol Use History: None Reported Additional Past Alcohol Use History / Comment(s): started smoking 1952 and quit 1993 Past Drug Use History: None Reported - Past Family History Father Family Medical History: Cancer Additional Family Medical History / Comment(s): Father had lung cancer and colorectal cancer. He smoked as a younger man. Mother Family Medical History: Cancer Additional Family Medical History / Comment(s): Mother had lung cancer. She was a lifelong smoker Medications and Allergies Home Medications Medication Instructions Recorded Confirmed Type Citalopram Hydrobromide 40 mg PO HS 09/29/14 12/15/18 History [Citalopram HBr] Levothyroxine Sodium [Synthroid] 88 mcg PO DAILY 09/29/14 12/15/18 History Multivitamins, Thera [Multivitamin 1 tab PO HS 09/29/14 12/15/18 History (formulary)] Omeprazole [PriLOSEC] 20 mg PO BID 09/29/14 12/15/18 History Simvastatin [Zocor] 40 mg PO HS 09/29/14 12/15/18 History Cyanocobalamin [Vitamin B-12] 500 mcg PO HS 11/07/18 12/15/18 History Tamsulosin HCl [Flomax] 0.4 mg PO HS@199911/07/18 12/15/18 History Vit C/E/Zn/Coppr/Lutein/Zeaxan 1 cap PO BID 11/07/18 12/15/18 History [Preservision Areds 2 Softgel] Apixaban [Eliquis] 2.5 mg PO BID tablet 11/18/18 12/15/18 Rx Docusate [Colace] 100 mg PO BID cap 11/18/18 12/15/18 Rx Insulin Aspart [NovoLOG 5 unit SQ AC-TID vial 11/18/18 12/15/18 Rx (formulary)] risperiDONE [RisperDAL] 1 mg PO BID 3 Days #6 tab 11/18/18 12/15/18 Rx Acetaminophen [Tylenol] 650 mg PO Q4H PRN 11/26/18 12/15/18 History Bismuth Subsalicylate [Kaopectate] 262 mg PO Q4H 11/26/18 12/15/18 History Loratadine [Claritin] 10 mg PO DAILY 11/26/18 12/15/18 History Melatonin 3 mg PO HS 11/26/18 12/15/18 History buPROPion [Wellbutrin] 150 mg PO DAILY 11/26/18 12/15/18 History Atenolol [Tenormin] 50 mg PO DAILY #0 tab 12/06/18 12/15/18 Rx Dicyclomine [Bentyl] 10 mg PO QID cap 12/06/18 12/15/18 Rx Ferrous Sulfate [Iron (65 MG 325 mg PO BID tab 12/06/18 12/15/18 Rx Elemental)] Finasteride [Proscar] 5 mg PO DAILY tab 12/06/18 12/15/18 Rx hydrALAZINE HCL [Apresoline] 50 mg PO TID tab 12/06/18 12/15/18 Rx Oxybutynin Chloride [Ditropan] 2.5 mg PO BID #0 tab 12/09/18 12/15/18 Rx Aspirin 81 mg PO HS 12/15/18 12/15/18 History Furosemide [Lasix] 20 mg PO DAILY 12/15/18 12/15/18 History Kelly-Lanta 30 ml PO Q6H PRN 12/15/18 12/15/18 History Insulin Aspart [NovoLOG See Protocol SQ ACHS 12/15/18 12/15/18 History (formulary)] Insulin Detemir [Levemir] 15 unit SQ DAILY 12/15/18 12/15/18 History Ipratropium/Albuterol Sulfate 1 puff INHALATION RT-QID 12/15/18 12/15/18 History [Combivent Respimat Inhaler] LORazepam [Ativan] 1 mg PO Q8H 12/15/18 12/15/18 History Lactulose [Cephulac] 20 gm PO TID PRN 12/15/18 12/15/18 History amLODIPine [Norvasc] 5 mg PO BID 12/15/18 12/15/18 History cycloSPORINE [Restasis] 1 drop BOTH EYES BID 12/15/18 12/15/18 History predniSONE See Taper PO DAILY 12/15/18 12/15/18 History Allergies Allergy/AdvReac Type Severity Reaction Status Date / Time No Known Allergies Allergy Verified 12/15/18 07:14 Physical Exam Vitals: Vital Signs Temp Pulse Pulse Pulse Resp BP BP 12/23/18 19:50 98.1 F 70 96 18 152/53 12/23/18 13:00 97 F L 63 12 128/77 12/23/18 12:29 80 12/23/18 12:15 80 12/23/18 08:43 76 12/23/18 08:24 76 12/23/18 08:00 71 12/23/18 07:40 98.1 F 70 16 151/59 12/23/18 00:45 15 12/23/18 00:20 98.2 F 71 15 157/60 Pulse Ox 12/23/18 19:50 12/23/18 13:00 97 12/23/18 12:29 12/23/18 12:15 12/23/18 08:43 12/23/18 08:24 12/23/18 08:00 12/23/18 07:40 94 L 12/23/18 00:45 12/23/18 00:20 93 L Intake and Output 12/23/18 12/23/18 12/24/18 14:59 22:59 06:59 Intake Total 474 280 Output Total 320 800 Balance 154 -800 280 Intake: Oral 474 280 Output: Urine 320 800 Uretheral (Lamas) 320 800 Other: Voiding Method Indwelling Catheter Indwelling Catheter On physical examination, patient appears comfortable in no apparent distress. HEAD: Normocephalic, atraumatic. EYES: No scleral icterus. No conjunctival injection. MOUTH: No lesions, tongue midline. NECK: Trachea midline, no gross abnormalities. CHEST: Decreased air entry in all lung tyler. HEART: No murmurs appreciated, S1-S2 appreciated. ABDOMEN: Soft, obese. Bowel sounds are positive. No organomegaly. No guarding or rigidity. EXTREMITIES: No pedal edema. SKIN: No rashes, no jaundice. NEUROLOGIC: Alert and oriented. No focal deficits. Results CBC & Chem 7: 12/22/18 08:00 12/23/18 06:30 Labs: Abnormal Lab Results - Last 24 Hours (Table) 12/23/18 12/23/18 12/23/18 Range/Units 06:30 06:51 11:47 Carbon Dioxide 31 H (22-30) mmol/L BUN 25 H (9-20) mg/dL Creatinine 1.95 H (0.66-1.25) mg/dL Glucose 153 H (74-99) mg/dL POC Glucose (mg/dL) 171 H 174 H (75-99) mg/dL 12/23/18 12/23/18 12/23/18 Range/Units 17:17 17:42 20:56 Carbon Dioxide (22-30) mmol/L BUN (9-20) mg/dL Creatinine (0.66-1.25) mg/dL Glucose (74-99) mg/dL POC Glucose (mg/dL) 59 L 167 H 239 H (75-99) mg/dL Microbiology - Last 24 Hours (Table) 12/21/18 12:45 Urine Culture - Final Urine,Catheterized Karla albicans CT scan - abdomen: report reviewed (Computed tomography scan of the abdomen significant for cholelithiasis without any acute GI process) Assessment and Plan (1) Abdominal pain Narrative/Plan: Patient reporting a constant diffuse abdominal pain without radiation of unclear etiology. He has had multiple imaging studies during his hospitalization which are significant only for cholelithiasis without any acute intra-abdominal process seen. He is on treatment with antispasmodic and bowel regimen at this time. If the patient's constipation worsens can consider up titration of this bowel regimen. Management of symptomatic cholelithiasis per the surgical service. Current Visit: Yes Status: Acute Code(s): R10.9 - UNSPECIFIED ABDOMINAL PAIN SNOMED Code(s): 71627167 (2) Cholelithiasis Current Visit: Yes Status: Acute Code(s): K80.20 - CALCULUS OF GALLBLADDER W /O CHOLECYSTITIS W/O OBSTRUCTION SNOMED Code(s): 124646832 Plan: Supportive care Okay for diet, would recommend low fiber as there may be a component of functional bowel disease contributing to patient's pain Continue Bentyl therapy Continue bowel regimen, can switch Colace twice daily to MiraLAX daily if patient still is had no bowel movement today Computed tomography scan reviewed Appreciate surgical recommendations, will defer to their treatment of cholelithiasis Continue Protonix daily Thank you for allowing us to participate in the care of the patient we will continue to follow
[2018-12-24 07:44] LABS: Glucose,Whole Blood 148 mg/dL (75-99)
[2018-12-24] MEDS: IPRATROPIUM-ALBUTEROL 3 ML NEB INHALATION SCH ×4 (08:06→19:30)
[2018-12-24 08:15] LABS: Calcium 8.6 mg/dL (8.4-10.2); Potassium 3.3 mmol/L (3.5-5.1)
[2018-12-24] MEDS: INSULIN ASPART 100 UNIT/ML 1 ML 10 ML VIAL SQ SCH ×7 (08:24→21:57)
[2018-12-24] MEDS: FUROSEMIDE 10 MG/ML 4 ML VIAL IV SCH ×2 (08:25→20:20)
[2018-12-24] MEDS: DOCUSATE 100 MG CAP PO SCH ×2 (08:26→20:21)
[2018-12-24] MEDS: cycloSPORINE 0.05% OPHTH 0.4 ML DROPERETTE BOTH EYES SCH ×2 (08:26→20:22)
[2018-12-24] MEDS: LORATADINE 10 MG TAB PO SCH (08:27)
[2018-12-24] MEDS: FINASTERIDE 5 MG TAB PO SCH (08:27)
[2018-12-24] MEDS: ATENOLOL 25 MG TAB PO SCH (08:27)
[2018-12-24] MEDS: MAGNESIUM OXIDE 400 MG TAB PO SCH (08:27)
[2018-12-24] MEDS: APIXABAN 2.5 MG TABLET PO SCH ×2 (08:27→20:21)
[2018-12-24] MEDS: VIT A,C & E-LUTEIN-MINERALS 1 EACH TAB PO SCH ×2 (08:27→20:22)
[2018-12-24] MEDS: OXYBUTYNIN CHLORIDE 5 MG TAB PO SCH ×2 (08:27→20:21)
[2018-12-24] MEDS: PANTOPRAZOLE 40 MG TABLET PO SCH (08:27)
[2018-12-24] MEDS: buPROPion 75 MG TAB PO SCH (08:27)
[2018-12-24] MEDS: amLODIPine 5 MG TAB PO SCH ×2 (08:27→20:21)
[2018-12-24] MEDS: hydrALAZINE HCL 50 MG TAB PO SCH ×3 (08:27→20:20)
[2018-12-24] MEDS ORDERED: ONDANSETRON 4 MG/2 ML VIAL IVP PRN (09:04)
[2018-12-24] MEDS: INSULIN DETEMIR 100 UNIT/ML 10 ML VIAL SQ SCH (10:00)
[2018-12-24 11:40] LABS: Glucose,Whole Blood 207 mg/dL (75-99)
[2018-12-24 12:38] LABS: Glucose,Whole Blood 169 mg/dL (75-99)
[2018-12-24] MEDS: DARBEPOETIN ALFA 40 MCG/0.4 ML SYRINGE SQ SCH (13:43)
--- NOTE | 2018-12-24 14:06 | P.CN ---
Psychiatric Consult - . 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 Patient also having shortness of breath. No fever or chills. Patient was also having right-sided abdominal rash. No nausea vomiting. Patient does eat with one-to-one feeding. No cough or sputum production. No aspiration as per staff. CT head showed cerebral atrophy and chronic small was ischemia. No change compared to old exam. There is some white matter hypodensity in the anterior right internal capsule consistent with old olecranon infarct. CT abdomen and pelvis showed bilateral pleural effusions and basilar pulmonary consolidation and atelectasis. Subcutaneous edema around the abdomen that could be related to congestive heart failure. There is probably small gallstones. Collect diverticulosis without diverticulitis. No acute abnormality within the abdominal pelvis. This patient is an 83-year-old man transferred here from residential to be evaluated for change in his mentation, change in the color of the skin to the right side of his abdomen, and possibly shortness of breath. The patient when I interview him does not give any complaints. He denies having pain anywhere. He is not otherwise able to give much in way history appearing to be having some dementia versus delirium. Chest x-ray showed right lower lobe infiltrate and atelectasis appears to be worse than old exam. No gross heart failure. EKG showed sinus bradycardia Patient has been on oxygen since admission to [facility]. Past Medical History Past Medical History: Coronary Artery Disease (CAD), Cancer, Diabetes Mellitus, GERD/Reflux, Hyperlipidemia, Hypertension, Myocardial Infarction ([place]), Pneumonia , Prostate Disorder, Sleep Apnea/CPAP/BIPAP, Thyroid Disorder Additional Past Medical History / Comment(s): no CPAP used, hiatal hernia, hx thyroid cancer, macular degeneration danielle eyes Last Myocardial Infarction Date:: 1999 History of Any Multi-Drug Resistant Organisms: None Reported Past Surgical History: Heart Catheterization With Stent, Joint Replacement Additional Past Surgical History / Comment(s): left knee replacement, danielle cataracts, thyroidectomy Past Anesthesia/Blood Transfusion Reactions: No Reported Reaction Additional Past Anesthesia/Blood Transfusion Reaction / Comment(s): clausterphobia -"uses open mri" Date of Last Stent Placement:: 1999 Past Psychological History: Anxiety, Depression, Schizophrenia Additional Psychological History / Comment(s): Pt currently is staying at [facility] for rehab since 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 They are getting him up with walker and he just started using the bars. Pt also has been on oxygen since getting to rehab. He no longer drives, family can take him to appts. Smoking Status: Former smoker Past Alcohol Use History: None Reported Additional Past Alcohol Use History / Comment(s): started smoking 1952 and quit 1993 Past Drug Use History: None Reported - Past Family History Father Family Medical History: Cancer Additional Family Medical History / Comment(s): Father had lung cancer and colorectal cancer. He smoked as a younger man. Mother Family Medical History: Cancer Additional Family Medical History / Comment(s): Mother had lung cancer. She was a lifelong smoker Medications and Allergies Home Medications Medication Instructions Recorded Confirmed Type Citalopram Hydrobromide 40 mg PO HS 09/29/14 12/15/18 History [Citalopram HBr] Levothyroxine Sodium [Synthroid] 88 mcg PO DAILY 09/29/14 12/15/18 History Multivitamins, Thera [Multivitamin 1 tab PO HS 09/29/14 12/15/18 History (formulary)] Omeprazole [PriLOSEC] 20 mg PO BID 09/29/14 12/15/18 History Simvastatin [Zocor] 40 mg PO HS 09/29/14 12/15/18 History Cyanocobalamin [Vitamin B-12] 500 mcg PO HS 11/07/18 12/15/18 History Tamsulosin HCl [Flomax] 0.4 mg PO HS@199911/07/18 12/15/18 History Vit C/E/Zn/Coppr/Lutein/Zeaxan 1 cap PO BID 11/07/18 12/15/18 History [Preservision Areds 2 Softgel] Apixaban [Eliquis] 2.5 mg PO BID tablet 11/18/18 12/15/18 Rx Docusate [Colace] 100 mg PO BID cap 11/18/18 12/15/18 Rx Insulin Aspart [NovoLOG 5 unit SQ AC-TID vial 11/18/18 12/15/18 Rx (formulary)] risperiDONE [RisperDAL] 1 mg PO BID 3 Days #6 tab 11/18/18 12/15/18 Rx Acetaminophen [Tylenol] 650 mg PO Q4H PRN 11/26/18 12/15/18 History Bismuth Subsalicylate [Kaopectate] 262 mg PO Q4H 11/26/18 12/15/18 History Loratadine [Claritin] 10 mg PO DAILY 11/26/18 12/15/18 History Melatonin 3 mg PO HS 11/26/18 12/15/18 History buPROPion [Wellbutrin] 150 mg PO DAILY 11/26/18 12/15/18 History Atenolol [Tenormin] 50 mg PO DAILY #0 tab 12/06/18 12/15/18 Rx Dicyclomine [Bentyl] 10 mg PO QID cap 12/06/18 12/15/18 Rx Ferrous Sulfate [Iron (65 MG 325 mg PO BID tab 12/06/18 12/15/18 Rx Elemental)] Finasteride [Proscar] 5 mg PO DAILY tab 12/06/18 12/15/18 Rx hydrALAZINE HCL [Apresoline] 50 mg PO TID tab 12/06/18 12/15/18 Rx Oxybutynin Chloride [Ditropan] 2.5 mg PO BID #0 tab 12/09/18 12/15/18 Rx Aspirin 81 mg PO HS 12/15/18 12/15/18 History Furosemide [Lasix] 20 mg PO DAILY 12/15/18 12/15/18 History Kelly-Lanta 30 ml PO Q6H PRN 12/15/18 12/15/18 History Insulin Aspart [NovoLOG See Protocol SQ ACHS 12/15/18 12/15/18 History (formulary)] Insulin Detemir [Levemir] 15 unit SQ DAILY 12/15/18 12/15/18 History Ipratropium/Albuterol Sulfate 1 puff INHALATION RT-QID 12/15/18 12/15/18 History [Combivent Respimat Inhaler] LORazepam [Ativan] 1 mg PO Q8H 12/15/18 12/15/18 History Lactulose [Cephulac] 20 gm PO TID PRN 12/15/18 12/15/18 History amLODIPine [Norvasc] 5 mg PO BID 12/15/18 12/15/18 History cycloSPORINE [Restasis] 1 drop BOTH EYES BID 12/15/18 12/15/18 History predniSONE See Taper PO DAILY 12/15/18 12/15/18 History Allergies Allergy/AdvReac Type Severity Reaction Status Date / Time No Known Allergies Allergy Verified 12/15/18 07:14 Mental Status Examination - "I am in pain and did not get any sleep last night ", "I want morphine for pain relief,please!!" General Appearance: [ casual, appears stated age Speech/Language: [slow, soft] Attitude/Behavior: [cooperative Mood: [ depressed 2 out of 10, anxious 2 out of 10, fearful, hopelessness] Affect: [Reactive] Orientation: [time, person, place situation] Thought Content: [Within normal Risk Factors: [Denies suicidal (ideations, plan), not and/or Homicidal ( ideations, plan), other] Perception: [ admits to auditory hallucinations Thought Processes: [goal-oriented Concentration/Attention Span: [wnl] [Per observation and interview with the patient] Recent Memory: [wnl] [ 2 out of 3 in 3 minutes] Remote Memory: [wnl [past events, as related history] Intelligence: [ average] [based on history, based on vocabulary, syntax, grammar , and content] Judgement: [ Good] [per patient's behavior/history of present illness] Insight: [ Good] [understanding severity of illness/history of present illness Psychiatric impression: Major depressive disorder without psychotic features Psychiatric recommendations: He is currently not suicidal nor homicidal nor has auditory not visual hallucinations but denies any today. When medically stable may move onto physical rehab unit for further treatment. He does not need a sitter and he is not appropriate for inpatient psychiatry unit Thank you for the consult Emre Espana D.O. PhD ] (1) Major depressive disorder with psychotic features Current Visit: No Status: Acute Priority: Low Code(s): F32.3 - MAJOR DEPRESSV DISORD, SINGLE EPSD, SEVERE W PSYCH FEATURES SNOMED Code(s): 17879846 Time with Patient: Greater than 30
[2018-12-24 14:56] LABS: Glucose,Whole Blood 193 mg/dL (75-99)
[2018-12-24 17:28] LABS: Glucose,Whole Blood 137 mg/dL (75-99)
--- NOTE | 2018-12-24 19:59 | P.PN ---
Subjective Progress Note Date: 12/24/18 CHIEF COMPLAINT: Abdominal pain HISTORY OF PRESENT ILLNESS: The patient is a 83 year old male with schizophrenia , depression, suicidal thoughts and dementia who reports abdominal pain. Initially he had right upper quadrant pain that has now improved. Yesterday he had left lower quadrant pain. GI team now following. Patient has gallstones and has been placed on low fat diet. He is still on a blood thinner that prohibits any surgical intervention at this time. PHYSICAL EXAM: VITAL SIGNS: Reviewed GENERAL: Well-developed in no acute distress. HEENT: No sclera icterus. Extraocular movements grossly intact. Moist buccal mucosa. Head is atraumatic, normocephalic. Hears conversational speech. No nasal drainage. NECK: Supple without lymphadenopathy. CHEST: Non-labored respirations and equal bilateral excursions. CARDIOVASCULAR: Palpable 2+ radial pulses. ABDOMEN: Soft. Nondistended. Nontender. No peritonitis. MUSCULOSKELETAL: No clubbing, cyanosis. Bilateral upper extremity edema improved. NEUROLOGIC: No focal or lateralizing signs. Cranial nerves II through XII grossly intact. PSYCH: Flat affect. Alert and oriented to person. SKIN: Well perfused. Good skin turgor. LABS: Reviewed ASSESSMENT: 1. Abdominal pain 2. Cholelithiasis 3. Stage 3/4 acute on chronic renal insufficiency 4. Chronic anticoagulant PLAN: 1. Will need off anticoagulant 5 to 7 days with renal disease for any surgical intervention 2. Continue bowel regimen. 3. Will sign off. 4. Please re-consult if needed. Objective - Vital Signs Vital signs: Vital Signs Temp 98.6 F 12/24/18 15:47 Pulse 62 12/24/18 16:00 Resp 16 12/24/18 16:00 BP 134/51 12/24/18 15:47 Pulse Ox 98 12/24/18 15:47 Intake & Output 12/24/18 12/24/18 12/25/18 06:59 18:59 06:59 Intake Total 560 118 Output Total 1550 Balance -990 118 Weight 83.3 kg Intake: Oral 560 118 Output: Urine 1550 Other: Voiding Method Indwelling Catheter Indwelling Catheter Indwelling Catheter # Voids 350 - Labs CBC & Chem 7: 12/22/18 08:00 12/24/18 06:53 Labs: Abnormal Lab Results - Last 24 Hours (Table) 02/03/0712/24/18 12/24/18 Range/Units 20:56 06:53 07:33 Potassium 3.3 L (3.5-5.1) mmol/L Carbon Dioxide 35 H (22-30) mmol/L BUN 25 H (9-20) mg/dL Creatinine 2.04 H (0.66-1.25) mg/dL Glucose 109 H (74-99) mg/dL POC Glucose (mg/dL) 239 H 148 H (75-99) mg/dL 12/24/18 12/24/18 12/24/18 Range/Units 11:28 12:23 14:44 Potassium (3.5-5.1) mmol/L Carbon Dioxide (22-30) mmol/L BUN (9-20) mg/dL Creatinine (0.66-1.25) mg/dL Glucose (74-99) mg/dL POC Glucose (mg/dL) 207 H 169 H 193 H (75-99) mg/dL 12/24/18 Range/Units 17:14 Potassium (3.5-5.1) mmol/L Carbon Dioxide (22-30) mmol/L BUN (9-20) mg/dL Creatinine (0.66-1.25) mg/dL Glucose (74-99) mg/dL POC Glucose (mg/dL) 137 H (75-99) mg/dL Assessment and Plan (1) Cholelithiasis Current Visit: Yes Status: Acute Code(s): K80.20 - CALCULUS OF GALLBLADDER W /O CHOLECYSTITIS W/O OBSTRUCTION SNOMED Code(s): 069811921 (2) Epigastric pain Current Visit: Yes Status: Acute Code(s): R10.13 - EPIGASTRIC PAIN SNOMED Code(s): 41790508 (3) Altered mental status Current Visit: Yes Status: Acute Code(s): R41.82 - ALTERED MENTAL STATUS, UNSPECIFIED SNOMED Code(s): 213734272 (4) Acute on chronic diastolic CHF (congestive heart failure) Current Visit: No Status: Acute Code(s): I50.33 - ACUTE ON CHRONIC DIASTOLIC (CONGESTIVE) HEART FAILURE SNOMED Code(s): 717169321 (5) Acute renal failure (ARF) Current Visit: No Status: Acute Code(s): N17.9 - ACUTE KIDNEY FAILURE, UNSPECIFIED SNOMED Code(s): 82870915 (6) CAD (coronary artery disease) Current Visit: No Status: Acute Code(s): I25.10 - ATHSCL HEART DISEASE OF [place] CORONARY ARTERY W/O ANG PCTRS SNOMED Code(s): 80082450 (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 Current Visit: No Status: Acute Priority: Low Code(s): F32.3 - MAJOR DEPRESSV DISORD, SINGLE EPSD, SEVERE W PSYCH FEATURES SNOMED Code(s): 18487075 (8) Schizophrenia Current Visit: Yes Status: Acute Code(s): F20.9 - SCHIZOPHRENIA, UNSPECIFIED SNOMED Code(s): 87807386 (9) Suicidal behavior Current Visit: Yes Status: Acute Code(s): R46.89 - OTHER SYMPTOMS AND SIGNS INVOLVING APPEARANCE AND BEHAVIOR SNOMED Code(s): 287150664 (10) Medically noncompliant Current Visit: Yes Status: Acute Code(s): Z91.19 - PATIENT'S NONCOMPLIANCE W OTH MEDICAL TREATMENT AND REGIMEN SNOMED Code(s): 021219621
[2018-12-24 20:17] LABS: Glucose,Whole Blood 100 mg/dL (75-99)
[2018-12-24] MEDS: MULTIVITAMINS, THERA 1 EACH TAB PO SCH (20:20)
[2018-12-24] MEDS: risperiDONE 0.25 MG TAB PO SCH (20:21)
[2018-12-24] MEDS: ATORVASTATIN 20 MG TAB PO SCH (20:21)
[2018-12-24] MEDS: MELATONIN 3 MG TABLET PO SCH (20:21)
[2018-12-24] MEDS: TAMSULOSIN 0.4 MG CAP.ER.24H PO SCH (20:21)
[2018-12-24] MEDS: CITALOPRAM HYDROBROMIDE 20 MG TAB PO SCH (20:21)
[2018-12-24] MEDS: CYANOCOBALAMIN 500 MCG TAB PO SCH (20:21)
[2018-12-24] MEDS: ASPIRIN 81 MG PO SCH (20:21)
[2018-12-24 21:16] LABS: Glucose,Whole Blood 99 mg/dL (75-99)
--- NOTE | 2018-12-24 22:28 | PN ---
PROGRESS NOTE Patient is seen for followup for chronic kidney disease. He is currently lying in bed. He is comfortable. Patient denies any significant complaints. PHYSICAL EXAMINATION: This afternoon, blood pressure was 134/51, heart rate of 60 per minute. Patient is afebrile. Examination of the heart S1, S2. Examination of the lungs bilateral breath sounds are heard. Abdomen is soft, nontender. Examination of lower extremity shows no significant edema. COOKING CHEF exam is grossly intact. LABS: From today show serum creatinine 2.04, potassium 3.3, sodium 139. ASSESSMENT: 1. Chronic kidney disease and NKF stage IIIB. Renal function currently stable. Serum creatinine is slightly higher, I will switch the IV Lasix to p.o. 2. Hypokalemia secondary to diuretics. Will replace. 3. Urine retention with chronic indwelling Lamas catheter. 4. Volume overload, currently improved. 5. Hypertension with chronic kidney disease, stable. PLAN: Replace potassium. Switch Lasix to p.o. Repeat labs in a.m. MMODL / IJN: [id number] /
[2018-12-24] MEDS ORDERED: Potassium Replacement Protocol 1 EACH MISC MISCELLANE PRN (23:29)
[2018-12-24] MEDS: POTASSIUM CHLORIDE ER 20 MEQ TAB.ER PO SCH (23:50)
--- NOTE | 2018-12-25 00:56 | P.PN ---
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 Patient also having shortness of breath. No fever or chills. Patient was also having right-sided abdominal rash. No nausea vomiting. Patient does eat with one-to-one feeding. No cough or sputum production. No aspiration as per staff. CT head showed cerebral atrophy and chronic small was ischemia. No change compared to old exam. There is some white matter hypodensity in the anterior right internal capsule consistent with old olecranon infarct. CT abdomen and pelvis showed bilateral pleural effusions and basilar pulmonary consolidation and atelectasis. Subcutaneous edema around the abdomen that could be related to congestive heart failure. There is probably small gallstones. Collect diverticulosis without diverticulitis. No acute abnormality within the abdominal pelvis. This patient is an 83-year-old man transferred here from skilled nursing to be evaluated for change in his mentation, change in the color of the skin to the right side of his abdomen, and possibly shortness of breath. The patient when I interview him does not give any complaints. He denies having pain anywhere. He is not otherwise able to give much in way history appearing to be having some dementia versus delirium. Chest x-ray showed right lower lobe infiltrate and atelectasis appears to be worse than old exam. No gross heart failure. EKG showed sinus bradycardia Patient has been on oxygen since admission to extended care [facility]. 12/16/2018 Patient is lying in bed, looks lethargic. He is alert awake and alert oriented to person and partially to time and place, he knows in the hospital but could not remember the name of the hospital, and he knew the month but not the ureter gait. He still dyspneic on 4 L oxygen via nasal cannula. He has dry cough but denies chest pain. Patient has right sided abdominal redness and warmth and periumbilical tenderness. He is saturating in the low 90s on 4 L via nasal cannula. No fever, no tachycardia and is breathing quietly at 16 BPM. Labs reviewed showing no leukocytosis. Anemia with hemoglobin stable around 8.6. His creatinine is stable at 1.8. Electrolytes within normal limits. 12/17/2018 pt became bradycardic in 40s and needed high flow oxygen yesterday and he was transferred to the [facility], pt still feels sick today , his heart rate improved to 80s and he still dyspeic although he feels a little better , he denies chest pain , he has dry cough. no abdominal pain . his rash is his abdomen is improved , he has harper catheter for urinary retention and he is on flomax already. cardiology team evaluated pt for acute D.CHF , pt to continue with lasix for now. party host/hostess evaluation is appreciated , pulmonary team are following the pt as well while he is maintained on antibiotic. pt today feels depressed with suicidal ideation " i'd better be than like this " , psych consult is called and sitter at bed side 12/18/2018 Patient was sitting in chair less dyspneic and denying chest pain. No abdominal pain or nausea vomiting. Tolerating diet well. Heart rate at 56. Blood pressure 163. And saturating 98% on 4 L oxygen. Labs reviewed showing the clip C of 8.7K, hemoglobin 8.9. Creatinine went up to 2.36. Patient has Harper catheter for his urinary retention. He is on Lasix 40 mg IV 3 times a day. Sports Specialist team are following the patient recommended to change Lasix to 40 mg orally once daily. Sitter at bedside. Patient looks less depressed today, psychiatric evaluation is pending regarding his suicidal ideation. He continued to be on Levaquin and Zosyn for his pneumonia. He is anticoagulated with Eliquis 2.5 mg. 12/19/2018 Patient with mild dyspnea but no chest pain. No abdominal pain nausea vomiting. He had hard bowel movement this morning. He is a little tachycardic this morning [id number], compared to bradycardia yesterday 56-60. Patient is being evaluated by cardiology team. Labs are still pending, creatinine is 2.3 and we decrease his lack 6 from 3 times a day to once a day orally. Patient is planned to go to [facility] for rehab upon discharge. pt denies suicidal ideation and less depressed today.sitter is DC already b y psychiatrist. 12/20/2018 patient states that he is the same as yesterday regarding his breathing and no chest pain. For the last 2 days he was complaining of from suprapubic pain and tenderness. Patient has Harper catheter and draining about 200 mL with dark- colored urine. Urinalysis previously was negative. We going to recheck urinalysis and bladder scan. Increase his pain medication of Narco every 8 hours when necessary. His rash and his abdominal wall is improving and feeding away. Patient denies depression 2 days with no suicidal ideation. His currently on 4 L oxygen via nasal cannula, rest of Vitas looks stable. His creatinine is improving to 2.0 today. Patient is supposed to go to [facility] upon discharge. Patient has been evaluated by cardiology, pulmonology and nephrology team and their input is appreciated. Patient remains on Zosyn and Levaquin, his Lasix decreased to 40 mg by mouth daily. Also he is on Eliquis. 12/21/2018 Patient with no chest pain or dyspnea. However he complains from abdominal pain and absent which is most suprapubic and periumbilical. It looks mild to moderate with no rebound tenderness and abdominal exam looks soft. Tolerating diet well, he had hard bowel movement this morning. Urine analysis came back positive for infection and he was already started on Levaquin. Hemodynamically stable. Creatinine 1.9. Urine culture is ordered however patient already got antibiotic, which might make it. Negative urine culture. We'll do abdominal x- ray and call surgical consult. Patient is suicidal again and sitter was placed at bedside. Discussed with family, and son at bedside and all their questions were answered to their satisfaction. Discontinue Zosyn 12/22/2018 Today patient is complaining of from increasing right-sided abdominal pain and associated with tenderness and guarding on exam. No much nausea vomiting. Little dyspnea with no chest pain. Pulmonary and surgical teams R following the case. The surgical team recommended HIDA scan and in view of dilated gallbladder on the ultrasound, but no gallstone. HIDA scan is already ordered by the surgical team. We will do also CAT scan of the abdomen without contrast. Were contacting the surgical team for close follow-up. 12/23/2018 patient is breathing quietly today. Denies chest pain. He has some dry cough with no phlegm. Harper catheter and with improved suprapubic tenderness. However his main concern is his generalized abdominal pain which has been going on for 2 weeks. Surgical evaluated patient and informed and was stable with no need for surgical intervention. He has dilated gallbladder with gallstones but no signs symptoms of acute cholecystitis. Recommend cholecystectomy if patient wishes but he has to hold his anticoagulation for 5 days prior to surgery, patient was informed with this recommendation and will think about it.patient with no nausea vomiting, his pain is not related to food although he has less appetite. He has bowel movements every 2 days which is usual for him. This pain is mild to moderate in severity, patient says now, does not work for him so it was switched to Ultram.. Patient continue on Levaquin for his UTI. Besides that she has depression , he states he wants to but not killing himself. sitter at bed side, we will call psych follow up for re-evaluation , also we will call GI consult for his generalized abd pain. he remains on Lasix 40 mg IV twice a day. Creatinine is 1.9, at baseline. 12/24/2018 Patient is still complaining of diffuse abdominal pain with unclear etiology. Patient had multiple imaging studies while in the hospital and found to have cholelithiasis without any acute process. General surgery and GI is following. Patient today is complaining of left lower quadrant abdominal pain. No tenderness and abdominal exam. Otherwise patient is on anticoagulation. Complete review of systems could not be obtained from the patient. Patient was seen by psychiatric today. Current medications reviewed. Objective - Vital Signs Vital signs: Vital Signs Temp 98.3 F 12/23/18 23:44 Pulse 80 12/24/18 12:29 Resp 16 12/24/18 12:29 BP 157/69 12/23/18 23:44 Pulse Ox 96 12/24/18 08:06 Intake & Output 12/23/18 12/24/18 12/24/18 18:59 06:59 18:59 Intake Total 474 560 118 Output Total 1120 1550 Balance -646 -990 118 Weight 83.3 kg Intake: Oral 474 560 118 Output: Urine 1120 1550 Uretheral (Harper) 1120 Other: Voiding Method Indwelling Catheter Indwelling Catheter Indwelling Catheter - Exam PHYSICAL EXAMINATION: Patient is lying in the bed comfortably, no acute distress, awake alert and agitated at times. HEENT: Normocephalic. Neck is supple. Pupils reactive. Nostrils clear. Oral cavity is moist. Ears reveal no drainage. Neck reveals no JVD, carotid bruits, or thyromegaly. CHEST EXAMINATION: Trachea is central. Symmetrical expansion. Lung tyler clear to auscultation and percussion. CARDIAC: Normal S1, S2 with no gallops. No murmurs ABDOMEN: Soft. Nondistended. Mild left lower quadrant tenderness. Bowel sounds normal. No organomegaly. No abdominal bruits. Extremities: reveal no edema. No clubbing or cyanosis Neurologically awake, alert, oriented x2-3 with well-coordinated movements. No focal deficits noted Skin: No rash or skin lesions. Psychiatric: Could not patient is completely. Musculoskeletal: No joint swelling or deformity. Normal range of motion. - Labs CBC & Chem 7: 12/22/18 08:00 12/24/18 06:53 Labs: Abnormal Lab Results - Last 24 Hours (Table) 12/23/18 12/23/18 12/23/18 Range/Units 17:17 17:42 20:56 Potassium (3.5-5.1) mmol/L Carbon Dioxide (22-30) mmol/L BUN (9-20) mg/dL Creatinine (0.66-1.25) mg/dL Glucose (74-99) mg/dL POC Glucose (mg/dL) 59 L 167 H 239 H (75-99) mg/dL 12/24/18 12/24/18 12/24/18 Range/Units 06:53 07:33 11:28 Potassium 3.3 L (3.5-5.1) mmol/L Carbon Dioxide 35 H (22-30) mmol/L BUN 25 H (9-20) mg/dL Creatinine 2.04 H (0.66-1.25) mg/dL Glucose 109 H (74-99) mg/dL POC Glucose (mg/dL) 148 H 207 H (75-99) mg/dL 12/24/18 Range/Units 12:23 Potassium (3.5-5.1) mmol/L Carbon Dioxide (22-30) mmol/L BUN (9-20) mg/dL Creatinine (0.66-1.25) mg/dL Glucose (74-99) mg/dL POC Glucose (mg/dL) 169 H (75-99) mg/dL Assessment and Plan Assessment: Acute Urinary traction infection generalized abd pain , GI general surgery is following. No surgical intervention at this time. Cholelithiasis. No acute cholecystitis. right side abdominal pain and tenderness, surgical team is following the case. No complaints of having right upper quadrant abdominal pain today depression with suicidal ideation, sitter at bed side chronic kidney disease stage 3 Altered mental status possible metabolic encephalopathy, improving Diabetes type 2 insulin-dependent Recent history of CVA/Lacunar infarct. Coronary artery disease history of stent placement Hypertension Hyperlipidemia History of [place] History of thyroid cancer Obstructive sleep apnea not using CPAP Macular degeneration of bilateral ice Anxiety depression and schizophrenia Medical debility currently attacks and care facility Previous history of smoking Patient is on anticoagulation with Apixaban. Etiology not sure. Plan: Patient will be continued on broad-spectrum antibiotics in the form of Levaquin cardiology and pulmonary consults evaluated pt and following. we will do ct of abd and pelvis without contrast in view of his kidney disease for his abd pain , surgical team is already on the case and the recommended HIDA scan as well . pscy consult and suicidal precaution. Continue with home medications and insulin dosing. Oxygen therapy and follow up closely. Currently the current management and further recommendations based on the clinical course. Prognosis is guarded with multiple medical problems and comorbid conditions. Time with Patient: Greater than 30
[2018-12-25] MEDS: POTASSIUM CHLORIDE ER 20 MEQ TAB.ER PO SCH (01:16)
[2018-12-25] MEDS: LEVOTHYROXINE 88 MCG TAB PO SCH (05:27)
[2018-12-25 07:13] LABS: Basophils % (A) 1 %; Eosinophils # (A) 0.2 k/uL (0-0.7); Eosinophils % (A) 3 %; HGB 10.1 gm/dL (13.0-17.5); Hypochromasia Slight; Lymphocytes # (A) 1.6 k/uL (1.0-4.8); Lymphocytes % (A) 21 %; MCHC 31.5 g/dL (31.0-37.0); MCV 104.8 fL (80.0-100.0); Macrocytosis Moderate; Mean Platelet Volume 6.3; Monocytes # (A) 0.4 k/uL (0-1.0); Monocytes % (A) 6 %; Neutrophils # (A) 5.2 k/uL (1.3-7.7); Neutrophils % (A) 67 %; Platelet Count 209 k/uL (150-450); RBC 3.05 m/uL (4.30-5.90); RDW 14.8 % (11.5-15.5); WBC 7.7 k/uL (3.8-10.6)
[2018-12-25 07:26] LABS: Calcium 8.6 mg/dL (8.4-10.2); Potassium 4.3 mmol/L (3.5-5.1)
[2018-12-25 07:38] LABS: Glucose,Whole Blood 190 mg/dL (75-99)
[2018-12-25 08:20] VITALS: BP 153/64; TEMP 97.6
[2018-12-25] MEDS: INSULIN ASPART 100 UNIT/ML 1 ML 10 ML VIAL SQ SCH ×4 (08:21→12:44)
[2018-12-25] MEDS: FINASTERIDE 5 MG TAB PO SCH (08:22)
[2018-12-25] MEDS: LORazepam 0.5 MG TAB PO SCH ×2 (08:22→16:03)
[2018-12-25] MEDS: DOCUSATE 100 MG CAP PO SCH (08:22)
[2018-12-25] MEDS: VIT A,C & E-LUTEIN-MINERALS 1 EACH TAB PO SCH (08:22)
[2018-12-25] MEDS: INSULIN DETEMIR 100 UNIT/ML 10 ML VIAL SQ SCH (08:22)
[2018-12-25] MEDS: risperiDONE 0.25 MG TAB PO SCH (08:22)
[2018-12-25] MEDS: OXYBUTYNIN CHLORIDE 5 MG TAB PO SCH (08:22)
[2018-12-25] MEDS: LEVOFLOXACIN 750 MG TAB PO SCH (08:23)
[2018-12-25] MEDS: APIXABAN 2.5 MG TABLET PO SCH (08:23)
[2018-12-25] MEDS: ATENOLOL 25 MG TAB PO SCH (08:23)
[2018-12-25] MEDS: buPROPion 75 MG TAB PO SCH (08:23)
[2018-12-25] MEDS: hydrALAZINE HCL 50 MG TAB PO SCH ×2 (08:23→16:03)
[2018-12-25] MEDS: PANTOPRAZOLE 40 MG TABLET PO SCH (08:23)
[2018-12-25] MEDS: LORATADINE 10 MG TAB PO SCH (08:23)
[2018-12-25] MEDS: amLODIPine 5 MG TAB PO SCH (08:23)
[2018-12-25] MEDS: FUROSEMIDE 40 MG TAB PO SCH ×2 (08:23→16:03)
[2018-12-25] MEDS: cycloSPORINE 0.05% OPHTH 0.4 ML DROPERETTE BOTH EYES SCH (08:24)
[2018-12-25] MEDS: IPRATROPIUM-ALBUTEROL 3 ML NEB INHALATION SCH ×2 (08:56→12:08)
[2018-12-25 09:00] VITALS: RESP 14
[2018-12-25] MEDS ORDERED: SENNOSIDES-DOCUSATE SODIUM 1 EACH TAB PO SCH (11:30)
--- NOTE | 2018-12-25 11:33 | P.PN ---
Subjective Progress Note Date: 12/25/18 Principal diagnosis: abdominal pain Abdominal pain improved but still present. BM yesterday. No emesis. Tolerating diet. Objective - Vital Signs Vital signs: Vital Signs Temp 97.6 F 12/25/18 08:17 Pulse 72 12/25/18 09:06 Resp 14 12/25/18 08:58 BP 153/64 12/25/18 08:17 Pulse Ox 96 12/25/18 08:58 Intake & Output 12/24/18 12/25/18 12/25/18 18:59 06:59 18:59 Intake Total 118 300 240 Output Total 1200 Balance 118 -900 240 Weight 83.3 kg Intake: Oral 118 300 240 Output: Urine 1200 Other: Voiding Method Indwelling Catheter Indwelling Catheter Indwelling Catheter # Voids 350 - Exam General appearance: The patient is alert, oriented, in no acute distress. HET: Head is normocephalic and atraumatic. Pupils are equal and reactive. Oropharynx is clear without lesions. Neck: Supple without lymphadenopathy. Trachea midline. Heart: S1 S2. Regular rate and rhythm. Lungs: No crackles or wheezes are heard. Abdomen: Soft, very mild tenderness across mid abdomen, nondistended with bowel sounds. No peritoneal signs. No palpable organomegaly or masses. Extremities: Normal skin color and turgor. No cyanosis, rash, ulceration, clubbing, or edema. Radial and pedal pulses are 2/4 bilaterally. Neurological: No focal deficits. Strength and sensation are grossly intact. - Labs CBC & Chem 7: 12/25/18 06:44 12/25/18 06:44 Labs: Abnormal Lab Results - Last 24 Hours (Table) 12/24/18 12/24/18 12/24/18 Range/Units 11:28 12:23 14:44 RBC (4.30-5.90) m/uL Hgb (13.0-17.5) gm/dL Hct (39.0-53.0) % MCV (80.0-100.0) fL Carbon Dioxide (22-30) mmol/L BUN (9-20) mg/dL Creatinine (0.66-1.25) mg/dL Glucose (74-99) mg/dL POC Glucose (mg/dL) 207 H 169 H 193 H (75-99) mg/dL 12/24/18 12/24/1812/25/19 Range/Units 17:14 20:16 06:44 RBC (4.30-5.90) m/uL Hgb (13.0-17.5) gm/dL Hct (39.0-53.0) % MCV (80.0-100.0) fL Carbon Dioxide 37 H (22-30) mmol/L BUN 27 H (9-20) mg/dL Creatinine 2.03 H (0.66-1.25) mg/dL Glucose 144 H (74-99) mg/dL POC Glucose (mg/dL) 137 H 100 H (75-99) mg/dL 12/25/18 12/25/18 Range/Units 06:44 07:18 RBC 3.05 L (4.30-5.90) m/uL Hgb 10.1 L (13.0-17.5) gm/dL Hct 32.0 L (39.0-53.0) % MCV 104.8 H (80.0-100.0) fL Carbon Dioxide (22-30) mmol/L BUN (9-20) mg/dL Creatinine (0.66-1.25) mg/dL Glucose (74-99) mg/dL POC Glucose (mg/dL) 190 H (75-99) mg/dL Assessment and Plan (1) Abdominal pain Narrative/Plan: Etiology unclear possible IBS Current Visit: Yes Status: Acute Code(s): R10.9 - UNSPECIFIED ABDOMINAL PAIN SNOMED Code(s): 85077196 (2) Cholelithiasis Current Visit: Yes Status: Acute Code(s): K80.20 - CALCULUS OF GALLBLADDER W /O CHOLECYSTITIS W/O OBSTRUCTION SNOMED Code(s): 971311968 Plan: 1. Recommend Bentyl 10 mg 3 times a day scheduled. Will add Senokot-S 2 tablets twice a day for bowel regularity. Avoid constipation. Diet as tolerated. We'll follow as needed. Follow up in GI office after discharge 2-3 weeks. Assessment and plan a care discussed with Dr. Castellon
[2018-12-25 12:03] LABS: Glucose,Whole Blood 234 mg/dL (75-99)
[2018-12-25 12:20] VITALS: PULSE 64
[2018-12-25] MEDS ORDERED: DICYCLOMINE 10 MG CAP PO SCH (16:00)
--- NOTE | 2018-12-25 23:53 | PN ---
PROGRESS NOTE The patient is seen for followup for chronic kidney disease. Currently stable. Patient is lying in bed this morning. Denies any significant complaints. PHYSICAL EXAMINATION: Blood pressure was 153/64, heart rate 76 per minute. He is afebrile. Examination of the heart S1, S2. Examination of the lungs bilateral breath sounds are heard. Abdomen is soft, nontender. Examination of lower extremities shows no significant edema. LABS: Show sodium 139, potassium 4.3, serum creatinine 2.03. ASSESSMENT: 1. Chronic kidney disease NKF stage IV renal function fairly stable. 2. Volume overload, currently improved. Lasix was switched to p.o. yesterday. 3. Hypokalemia secondary to diuretics, status post replacement. 4. Urinary retention with chronic indwelling Lamas catheter. 5. Hypertension with chronic kidney disease, currently stable. PLAN: Patient is stable for discharge. Continue loop diuretics as outpatient and monitor labs. Follow up with Nephrology in 2 weeks. MMODL / IJN: [id number] /
--- NOTE | 2018-12-27 10:13 | P.DS ---
Providers Date of admission: 12/15/18 06:37 Expected date of discharge: 12/25/18 Attending physician: Di Stokes Consults: 12/15/18 18:06 Consult Physician Routine Consulting Provider: Taylor Bernstein Consult Reason/Comments: Pneumonia Do you want consulting provider notified?: Yes 12/16/18 22:50 Consult Physician Routine Consulting Provider: Alexis Sarmiento Consult Reason/Comments: bradycardia Do you want consulting provider notified?: Yes, Notify in am 12/16/18 22:52 Consult Physician Routine Consulting Provider: Major Israel Consult Reason/Comments: elevated kidney function Do you want consulting provider notified?: Yes, Notify in am 12/17/18 11:15 Consult Physician Routine Consulting Provider: Emre Espana Consult Reason/Comments: suicide precautions Do you want consulting provider notified?: Yes 12/21/18 12:56 Consult Physician Routine Consulting Provider: Lucina Shepherd Consult Reason/Comments: abd. pain Do you want consulting provider notified?: Yes 12/23/18 08:42 Consult Physician Routine Consulting Provider: Emre Espana Consult Reason/Comments: Suicidal thoughts Do you want consulting provider notified?: Yes Primary care physician: Phoenix Parker Hospital Course: Discharge diagnosis Acute Urinary traction infection. Cultures showed Karla generalized abd pain , GI general surgery has seen the patient.. No surgical intervention at this time. Improved now. Cholelithiasis. No acute cholecystitis. right side abdominal pain and tenderness, surgical team is following the case. No complaints of having right upper quadrant abdominal pain today. 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 Coronary artery disease history of stent placement Hypertension Hyperlipidemia History of MO History of thyroid cancer Obstructive sleep apnea not using CPAP Macular degeneration of bilateral ice Anxiety depression and schizophrenia Medical debility currently attacks and care facility Previous history of smoking Paroxysmal atrial fibrillation on anticoagulation with Apixaban. Hospital course Patient is a 83-year-old male with a known history of diabetes type 2, hypertension, hyperlipidemia, history of MO, obstructive sleep apnea on CPAP, hypothyroidism, macular degeneration of bilateral eyes, coronary artery disease with stent placement history and anxiety/depression and schizophrenia who is currently staying at extended care facility since CVA in October 2018, was transferred to ER due to altered mental status. Patient also having shortness of breath. No fever or chills. Patient was also having right-sided abdominal rash. No nausea vomiting. Patient does eat with one-to-one feeding. No cough or sputum production. No aspiration as per staff. CT head showed cerebral atrophy and chronic small was ischemia. No change compared to old exam. There is some white matter hypodensity in the anterior right internal capsule consistent with old olecranon infarct. CT abdomen and pelvis showed bilateral pleural effusions and basilar pulmonary consolidation and atelectasis. Subcutaneous edema around the abdomen that could be related to congestive heart failure. There is probably small gallstones. Collect diverticulosis without diverticulitis. No acute abnormality within the abdominal pelvis. This patient is an 83-year-old man transferred here from [facility] to be evaluated for change in his mentation, change in the color of the skin to the right side of his abdomen, and possibly shortness of breath. The patient when I interview him does not give any complaints. He denies having pain anywhere. He is not otherwise able to give much in way history appearing to be having some dementia versus delirium. Chest x-ray showed right lower lobe infiltrate and atelectasis appears to be worse than old exam. No gross heart failure. EKG showed sinus bradycardia Patient has been on oxygen since admission to extended care facility. 12/16/2018 Patient is lying in bed, looks lethargic. He is alert awake and alert oriented to person and partially to time and place, he knows in the hospital but could not remember the name of the hospital, and he knew the month but not the ureter gait. He still dyspneic on 4 L oxygen via nasal cannula. He has dry cough but denies chest pain. Patient has right sided abdominal redness and warmth and periumbilical tenderness. He is saturating in the low 90s on 4 L via nasal cannula. No fever, no tachycardia and is breathing quietly at 16 BPM. Labs reviewed showing no leukocytosis. Anemia with hemoglobin stable around 8.6. His creatinine is stable at 1.8. Electrolytes within normal limits. 12/17/2018 pt became bradycardic in 40s and needed high flow oxygen yesterday and he was transferred to the [facility], pt still feels sick today , his heart rate improved to 80s and he still dyspeic although he feels a little better , he denies chest pain , he has dry cough. no abdominal pain . his rash is his abdomen is improved , he has harper catheter for urinary retention and he is on flomax already. cardiology team evaluated pt for acute D.CHF , pt to continue with lasix for now. plate inspector evaluation is appreciated , pulmonary team are following the pt as well while he is maintained on antibiotic. pt today feels depressed with suicidal ideation " i'd better be than like this " , psych consult is called and sitter at bed side 12/18/2018 Patient was sitting in chair less dyspneic and denying chest pain. No abdominal pain or nausea vomiting. Tolerating diet well. Heart rate at 56. Blood pressure 163. And saturating 98% on 4 L oxygen. Labs reviewed showing the clip C of 8.7K, hemoglobin 8.9. Creatinine went up to 2.36. Patient has Harper catheter for his urinary retention. He is on Lasix 40 mg IV 3 times a day. Payroll And Benefits Analyst team are following the patient recommended to change Lasix to 40 mg orally once daily. Sitter at bedside. Patient looks less depressed today, psychiatric evaluation is pending regarding his suicidal ideation. He continued to be on Levaquin and Zosyn for his pneumonia. He is anticoagulated with Eliquis 2.5 mg. 12/19/2018 Patient with mild dyspnea but no chest pain. No abdominal pain nausea vomiting. He had hard bowel movement this morning. He is a little tachycardic this morning [id number], compared to bradycardia yesterday 56-60. Patient is being evaluated by cardiology team. Labs are still pending, creatinine is 2.3 and we decrease his lack 6 from 3 times a day to once a day orally. Patient is planned to go to [facility] for rehab upon discharge. pt denies suicidal ideation and less depressed today.sitter is DC already b y psychiatrist. 12/20/2018 patient states that he is the same as yesterday regarding his breathing and no chest pain. For the last 2 days he was complaining of from suprapubic pain and tenderness. Patient has Harper catheter and draining about 200 mL with dark- colored urine. Urinalysis previously was negative. We going to recheck urinalysis and bladder scan. Increase his pain medication of Narco every 8 hours when necessary. His rash and his abdominal wall is improving and feeding away. Patient denies depression 2 days with no suicidal ideation. His currently on 4 L oxygen via nasal cannula, rest of Vitas looks stable. His creatinine is improving to 2.0 today. Patient is supposed to go to [facility] upon discharge. Patient has been evaluated by cardiology, pulmonology and nephrology team and their input is appreciated. Patient remains on Zosyn and Levaquin, his Lasix decreased to 40 mg by mouth daily. Also he is on Eliquis. 12/21/2018 Patient with no chest pain or dyspnea. However he complains from abdominal pain and absent which is most suprapubic and periumbilical. It looks mild to moderate with no rebound tenderness and abdominal exam looks soft. Tolerating diet well, he had hard bowel movement this morning. Urine analysis came back positive for infection and he was already started on Levaquin. Hemodynamically stable. Creatinine 1.9. Urine culture is ordered however patient already got antibiotic, which might make it. Negative urine culture. We'll do abdominal x- ray and call surgical consult. Patient is suicidal again and sitter was placed at bedside. Discussed with family, and son at bedside and all their questions were answered to their satisfaction. Discontinue Zosyn 12/22/2018 Today patient is complaining of from increasing right-sided abdominal pain and associated with tenderness and guarding on exam. No much nausea vomiting. Little dyspnea with no chest pain. Pulmonary and surgical teams R following the case. The surgical team recommended HIDA scan and in view of dilated gallbladder on the ultrasound, but no gallstone. HIDA scan is already ordered by the surgical team. We will do also CAT scan of the abdomen without contrast. Were contacting the surgical team for close follow-up. 12/23/2018 patient is breathing quietly today. Denies chest pain. He has some dry cough with no phlegm. Harper catheter and with improved suprapubic tenderness. However his main concern is his generalized abdominal pain which has been going on for 2 weeks. Surgical evaluated patient and informed and was stable with no need for surgical intervention. He has dilated gallbladder with gallstones but no signs symptoms of acute cholecystitis. Recommend cholecystectomy if patient wishes but he has to hold his anticoagulation for 5 days prior to surgery, patient was informed with this recommendation and will think about it.patient with no nausea vomiting, his pain is not related to food although he has less appetite. He has bowel movements every 2 days which is usual for him. This pain is mild to moderate in severity, patient says now, does not work for him so it was switched to Ultram.. Patient continue on Levaquin for his UTI. Besides that she has depression , he states he wants to but not killing himself. sitter at bed side, we will call psych follow up for re-evaluation , also we will call GI consult for his generalized abd pain. he remains on Lasix 40 mg IV twice a day. Creatinine is 1.9, at baseline. 12/24/2018 Patient is still complaining of diffuse abdominal pain with unclear etiology. Patient had multiple imaging studies while in the hospital and found to have cholelithiasis without any acute process. General surgery and GI is following. Patient today is complaining of left lower quadrant abdominal pain. No tenderness and abdominal exam. Otherwise patient is on anticoagulation. Complete review of systems could not be obtained from the patient. 12/25/2018 Patient says that his abdominal pain is much improved now. Patient does have cholelithiasis but no evidence of acute process. Patient was seen by general surgery and gastroenterology. No surgical recommendations were made at this time. Patient will be continued on Bentyl 3 times a day and also stool softeners to prevent constipation. Next and patient was also recommended to follow with outpatient psychiatric clinic as well. Otherwise patient is afebrile. No nausea vomiting. Tolerating oral diet. Patient completed antibiotic course while in the hospital. Stable to be discharged to rehab. PHYSICAL EXAMINATION: Patient is lying in the bed comfortably, no acute distress, awake alert and agitated at times. HEENT: Normocephalic. Neck is supple. Pupils reactive. Nostrils clear. Oral cavity is moist. Ears reveal no drainage. Neck reveals no JVD, carotid bruits, or thyromegaly. CHEST EXAMINATION: Trachea is central. Symmetrical expansion. Lung tyler clear to auscultation and percussion. CARDIAC: Normal S1, S2 with no gallops. No murmurs ABDOMEN: Soft. Nondistended. Mild left lower quadrant tenderness. Bowel sounds normal. No organomegaly. No abdominal bruits. Extremities: reveal no edema. No clubbing or cyanosis Neurologically awake, alert, oriented x2-3 with well-coordinated movements. No focal deficits noted Skin: No rash or skin lesions. Psychiatric: Cooperative. Musculoskeletal: No joint swelling or deformity. Normal range of motion. Vital Signs (72 hours) 12/24/18 12/24/18 12/24/18 12:16 12:25 12:29 Temperature Pulse Rate 82 80 Pulse Rate [ Left] Pulse Rate [ Pulse Oximetery ] Respiratory 16 16 16 Rate Blood Pressure [Left Arm] Blood Pressure [Right Arm] O2 Sat by Pulse Oximetry 12/24/18 12/24/18 12/24/18 15:47 16:00 20:29 Temperature 98.6 F 98.6 F Pulse Rate Pulse Rate [ 61 Left] Pulse Rate [ 62 62 Pulse Oximetery ] Respiratory 16 16 16 Rate Blood Pressure [Left Arm] Blood Pressure 134/51 139/47 [Right Arm] O2 Sat by Pulse 98 98 Oximetry 12/25/18 12/25/18 12/25/18 01:00 08:17 08:58 Temperature 98.3 F 97.6 F Pulse Rate 76 Pulse Rate [ 61 Left] Pulse Rate [ 56 L Pulse Oximetery ] Respiratory 16 16 14 Rate Blood Pressure 153/64 [Left Arm] Blood Pressure 151/55 [Right Arm] O2 Sat by Pulse 93 L 91 L 96 Oximetry 12/25/18 12/25/18 12/25/18 09:06 12:10 12:20 Temperature Pulse Rate 72 68 64 Pulse Rate [ Left] Pulse Rate [ Pulse Oximetery ] Respiratory Rate Blood Pressure [Left Arm] Blood Pressure [Right Arm] O2 Sat by Pulse Oximetry Total time taken greater than 35 minutes including 18 minutes for counseling and coordination of care. Patient Condition at Discharge: Poor Plan - Discharge Summary Discharge Rx Participant: No New Discharge Prescriptions: New risperiDONE [RisperDAL] 0.25 mg PO BID tab Darbepoetin Eliud [Aranesp] 40 mcg SQ Q7D syringe Sennosides-Docusate Sodium [Senokot-S] 2 each PO BID #30 tab Atenolol [Tenormin] 25 mg PO DAILY tab Furosemide [Lasix] 40 mg PO BID@0900,1600 #60 tab LORazepam [Ativan] 0.5 mg PO TID 3 Days #9 tab Continue Citalopram Hydrobromide [Citalopram HBr] 40 mg PO HS Simvastatin [Zocor] 40 mg PO HS Omeprazole [PriLOSEC] 20 mg PO BID Levothyroxine Sodium [Synthroid] 88 mcg PO DAILY Multivitamins, Thera [Multivitamin (formulary)] 1 tab PO HS Tamsulosin HCl [Flomax] 0.4 mg PO HS@2000 Cyanocobalamin [Vitamin B-12] 500 mcg PO HS Vit C/E/Zn/Coppr/Lutein/Zeaxan [Preservision Areds 2 Softgel] 1 cap PO BID Apixaban [Eliquis] 2.5 mg PO BID tablet Docusate [Colace] 100 mg PO BID cap Insulin Aspart [NovoLOG (formulary)] 5 unit SQ AC-TID vial Bismuth Subsalicylate [Kaopectate] 262 mg PO Q4H buPROPion [Wellbutrin] 150 mg PO DAILY Melatonin 3 mg PO HS Loratadine [Claritin] 10 mg PO DAILY Acetaminophen [Tylenol] 650 mg PO Q4H PRN PRN Reason: Fever Finasteride [Proscar] 5 mg PO DAILY tab hydrALAZINE HCL [Apresoline] 50 mg PO TID tab Oxybutynin Chloride [Ditropan] 2.5 mg PO BID #0 tab amLODIPine [Norvasc] 5 mg PO BID Aspirin 81 mg PO HS cycloSPORINE [Restasis] 1 drop BOTH EYES BID Kelly-Lanta 30 ml PO Q6H PRN PRN Reason: Gi Upset Insulin Aspart [NovoLOG (formulary)] See Protocol SQ ACHS Insulin Detemir [Levemir] 15 unit SQ DAILY Ipratropium/Albuterol Sulfate [Combivent Respimat Inhaler] 1 puff INHALATION RT-QID Lactulose [Cephulac] 20 gm PO TID PRN PRN Reason: Constipation Changed Dicyclomine [Bentyl] 10 mg PO TID #0 cap Discontinued risperiDONE [RisperDAL] 1 mg PO BID 3 Days #6 tab Atenolol [Tenormin] 50 mg PO DAILY #0 tab Ferrous Sulfate [Iron (65 MG Elemental)] 325 mg PO BID tab Furosemide [Lasix] 20 mg PO DAILY LORazepam [Ativan] 1 mg PO Q8H predniSONE See Taper PO DAILY Discharge Medication List Citalopram Hydrobromide [Citalopram HBr] 40 mg PO HS 09/29/14 [History] Levothyroxine Sodium [Synthroid] 88 mcg PO DAILY 09/29/14 [History] Multivitamins, Thera [Multivitamin (formulary)] 1 tab PO HS 09/29/14 [History] Omeprazole [PriLOSEC] 20 mg PO BID 09/29/14 [History] Simvastatin [Zocor] 40 mg PO HS 09/29/14 [History] Cyanocobalamin [Vitamin B-12] 500 mcg PO HS 11/07/18 [History] Tamsulosin HCl [Flomax] 0.4 mg PO HS@199911/07/18 [History] Vit C/E/Zn/Coppr/Lutein/Zeaxan [Preservision Areds 2 Softgel] 1 cap PO BID 11/07 [History] Apixaban [Eliquis] 2.5 mg PO BID tablet 11/18/18 [Rx] Docusate [Colace] 100 mg PO BID cap 11/18/18 [Rx] Insulin Aspart [NovoLOG (formulary)] 5 unit SQ AC-TID vial 11/18/18 [Rx] Acetaminophen [Tylenol] 650 mg PO Q4H PRN 11/26/18 [History] Bismuth Subsalicylate [Kaopectate] 262 mg PO Q4H 11/26/18 [History] Loratadine [Claritin] 10 mg PO DAILY 11/26/18 [History] Melatonin 3 mg PO HS 11/26/18 [History] buPROPion [Wellbutrin] 150 mg PO DAILY 11/26/18 [History] Finasteride [Proscar] 5 mg PO DAILY tab 12/06/18 [Rx] hydrALAZINE HCL [Apresoline] 50 mg PO TID tab 12/06/18 [Rx] Oxybutynin Chloride [Ditropan] 2.5 mg PO BID #0 tab 12/09/18 [Rx] Aspirin 81 mg PO HS 12/15/18 [History] Kelly-Lanta 30 ml PO Q6H PRN 12/15/18 [History] Insulin Aspart [NovoLOG (formulary)] See Protocol SQ ACHS 12/15/18 [History] Insulin Detemir [Levemir] 15 unit SQ DAILY 12/15/18 [History] Ipratropium/Albuterol Sulfate [Combivent Respimat Inhaler] 1 puff INHALATION RT- QID 12/15/18 [History] Lactulose [Cephulac] 20 gm PO TID PRN 12/15/18 [History] amLODIPine [Norvasc] 5 mg PO BID 12/15/18 [History] cycloSPORINE [Restasis] 1 drop BOTH EYES BID 12/15/18 [History] Atenolol [Tenormin] 25 mg PO DAILY tab 12/25/18 [Rx] Darbepoetin Eliud [Aranesp] 40 mcg SQ Q7D syringe 12/25/18 [Rx] Dicyclomine [Bentyl] 10 mg PO TID #0 cap 12/25/18 [Rx] Furosemide [Lasix] 40 mg PO BID@0900,1600 #60 tab 12/25/18 [Rx] LORazepam [Ativan] 0.5 mg PO TID 3 Days #9 tab 12/25/18 [Rx] Sennosides-Docusate Sodium [Senokot-S] 2 each PO BID #30 tab 12/25/18 [Rx] risperiDONE [RisperDAL] 0.25 mg PO BID tab 12/25/18 [Rx] Follow up Appointment(s)/Referral(s): Phoenix Parker MD [Primary Care Provider] - [facility] - As Needed Quique Castellon MD [STAFF PHYSICIAN] - 3 Weeks Discharge Disposition: TRANSFER TO SNF/ECF
== END 2018-12-25 16:35 | DRG 193 ==
LOC: EC 23:22 → OBSVTOIN 12-15 06:37 → 3NMEDONC 12-15 06:37 → UNDOADMOB 12-15 06:58 → 3NMEDONC 12-15 06:58 → 3SCARD 12-17 01:12 → 3NMEDONC 12-17 01:12 → 4SSUR 12-20 17:23
PROVIDERS: ADMIT Hospitalist; ATTEND Hospitalist
DX: J18.9 Pneumonia, unspecified organism (principal); I50.33 Acute on chronic diastolic (congestive) heart failure; J96.21 Acute and chronic respiratory failure with hypoxia; G93.41 Metabolic encephalopathy; F32.3 Major depressive disorder, single episode, severe with psychotic features; I13.0 Hypertensive heart and chronic kidney disease with heart failure and stage 1 through stage 4 chronic kidney disease, or unspecified chronic kidney disease; J98.11 Atelectasis; N17.9 Acute kidney failure, unspecified; N18.4 Chronic kidney disease, stage 4 (severe); N39.0 Urinary tract infection, site not specified; R45.851 Suicidal ideations; D63.1 Anemia in chronic kidney disease; E11.22 Type 2 diabetes mellitus with diabetic chronic kidney disease; E61.1 Iron deficiency; E78.5 Hyperlipidemia, unspecified; E87.5 Hyperkalemia; E87.6 Hypokalemia; T50.2X5A Adverse effect of carbonic-anhydrase inhibitors, benzothiadiazides and other diuretics, initial encounter; Y95 Nosocomial condition; E89.0 Postprocedural hypothyroidism; F03.90 Unspecified dementia, unspecified severity, without behavioral disturbance, psychotic disturbance, mood disturbance, and anxiety; F20.9 Schizophrenia, unspecified; F41.8 Other specified anxiety disorders; G47.33 Obstructive sleep apnea (adult) (pediatric); Z99.89 Dependence on other enabling machines and devices; Z99.81 Dependence on supplemental oxygen; G89.29 Other chronic pain; H35.30 Unspecified macular degeneration; I25.10 Atherosclerotic heart disease of native coronary artery without angina pectoris; I25.2 Old myocardial infarction; I25.5 Ischemic cardiomyopathy; I48.0 Paroxysmal atrial fibrillation; K21.9 Gastro-esophageal reflux disease without esophagitis; K57.90 Diverticulosis of intestine, part unspecified, without perforation or abscess without bleeding; K80.50 Calculus of bile duct without cholangitis or cholecystitis without obstruction; Z79.01 Long term (current) use of anticoagulants; Z79.4 Long term (current) use of insulin; Z79.82 Long term (current) use of aspirin; Z79.890 Hormone replacement therapy; Z79.899 Other long term (current) drug therapy; Z80.0 Family history of malignant neoplasm of digestive organs; Z80.1 Family history of malignant neoplasm of trachea, bronchus and lung; Z85.850 Personal history of malignant neoplasm of thyroid; Z86.73 Personal history of transient ischemic attack (TIA), and cerebral infarction without residual deficits; Z87.01 Personal history of pneumonia (recurrent); Z87.891 Personal history of nicotine dependence; Z91.19 Patient's noncompliance with other medical treatment and regimen; Z95.5 Presence of coronary angioplasty implant and graft; Z96.652 Presence of left artificial knee joint; Z79.52 Long term (current) use of systemic steroids; Z98.42 Cataract extraction status, left eye; Z98.41 Cataract extraction status, right eye; R21 Rash and other nonspecific skin eruption; R53.81 Other malaise; N42.9 Disorder of prostate, unspecified; R33.9 Retention of urine, unspecified; R00.1 Bradycardia, unspecified; F40.240 Claustrophobia
CPT/HCPCS: 36415; 36600; 70450; 71045; 74018; 74176; 76705; 78226; 80048; 80053; 81001; 82140; 82150; 82550; 82553; 82728; 82805; 83036; 83540; 83550; 83605; 83690; 83735; 83880; 84443; 84484; 85025; 85610; 85730; 87040; 87086; 93005; 94640; 94760; 96365; 96366; 99285

== ENCOUNTER → 2019-06-18 | Outpatient (CLI) | payer OTHER ==
--- NOTE | 2019-06-18 10:13 | US ---
EXAMINATION TYPE: US abdomen comp/pelvis limited DATE OF EXAM: 06/18/2019 COMPARISON: CT dated 12/22/2018 CLINICAL HISTORY: R94.4 Abnormal results of kidney function studies. Abnormal labs. No prior surgeri es. No pain. EXAM MEASUREMENTS: Liver Length: 16.8 cm Gallbladder Wall: 0.2 cm Spleen: 11.3 cm Right Kidney: 9.0 x 4.1 x 5.1 cm Left Kidney: 10.8 x 3.9x 5.6 cm Extremely limited exam due to overlying bowel gas Pancreas: Head and tail not well visualized. Visualized portions appear grossly unremarkable. Liver: Left lobe not visualized due to overlying bowel gas. Scanned through ribs. Limited visualiz ation of right lobe. Gallbladder: Multiple echogenic mobile foci visualized CBD: Obscured by overlying bowel gas Spleen: wnl Right Kidney: appears small in size compared to contralateral kidney. Cortical thinning. Upper laz e too small to accurately characterize poorly visualized lesion measures 0.8 x 0.7 x 0.6 cm Left Kidney: Multiple cystic appearing lesion. Largest lateral - 3.6 x 3.0 x 3.1 cm. Largest mid - 1.9 x 2.1 x 2.1 cm. Upper IVC: Obscured by overlying bowel gas Abd Aorta: Obscured by overlying bowel gas Bladder: distended, wnl as visualized Bilateral Jets Seen IMPRESSION: 1. Asymmetric right renal atrophy and too small to accurately characterize right renal lesion. 2. Multiple benign-appearing left renal cysts. 3. No hydronephrosis or nephrolithiasis of either kidney. 3. Exam is extremely limited secondary to overlying bowel gas with obscuration of the common bile tran t, upper IVC, and abdominal aorta as well as majority of the pancreas. There is also suboptimal visua lization of the liver. 4. Incidentally noted cholelithiasis. Correlate with physical exam as the common bile duct caliber ca nnot be seen.
== END | disposition home or self-care (01) ==
LOC: RADUSWWP 08:51
DX: N26.1 Atrophy of kidney (terminal) (principal); N28.1 Cyst of kidney, acquired; Z88.8 Allergy status to other drugs, medicaments and biological substances
CPT/HCPCS: 76700; 76857

== ENCOUNTER → 2019-09-27 | Outpatient (CLI) | payer MEDICARE, BC ==
--- NOTE | 2019-09-27 08:20 | MR ---
MR lumbar spine wo con LBP, LLE radic x 2 mos, no trauma/surgery Multiplanar, multiecho imaging of the lumbar spine was obtained without contrast on a 3 Halima magnet. REFERENCE:None. FINDINGS: There is a 1.2 cm cystic lesion in the posterior aspect of the middle pole region of the l eft kidney. Paraspinal soft tissues are otherwise unremarkable. Vertebral body height and alignment are normal. Cord signal is normal the conus ends normally at the level of the L1-2 disc. At T12-L1, there are mild hypertrophic changes in the facets. At L1-2, the intervertebral foramina are widely maintained. There is no significant compressive disco leticia. There is mild hypertrophic change and capsulitis within the facets. At L2-3, the intervertebral foramina are widely maintained. There is a mild, diffuse disc displacemen t. There are hypertrophic changes in the facets. At L3-4, there is mild, bilateral intervertebral foraminal narrowing slightly worse on the right left . There is a mild, diffuse disc displacement. There are hypertrophic changes and capsulitis within th e facets. At L4-5, there is mild, bilateral intervertebral foraminal narrowing. There is no significant benigno sive discopathy. There are hypertrophic changes within the facets. At L5-S1, the intervertebral foramina are well maintained. There is a mild, diffuse disc displacement . There are moderate degenerative changes and capsulitis within the facets. IMPRESSION: 1. MILD, DIFFUSE FACET ARTHROPATHY. 2. MULTILEVEL INTERVERTEBRAL FORAMINAL NARROWING. 3. CYSTIC LESION, LEFT KIDNEY. THIS COULD BE FURTHER ASSESSED WITH ULTRASOUND.
== END | disposition home or self-care (01) ==
LOC: RADMRIMAIN 07:16
PROVIDERS: ATTEND Family Medicine
DX: M48.061 Spinal stenosis, lumbar region without neurogenic claudication (principal); M46.96 Unspecified inflammatory spondylopathy, lumbar region; E11.65 Type 2 diabetes mellitus with hyperglycemia; E11.22 Type 2 diabetes mellitus with diabetic chronic kidney disease; N18.4 Chronic kidney disease, stage 4 (severe)
CPT/HCPCS: 72148

== ENCOUNTER 2019-10-22 11:17 | Emergency (ER) | payer MEDICARE, BC ==
[2019-10-22 11:28] VITALS: RESP 18; TEMP 98
[2019-10-22] MEDS ORDERED: ACETAMINOPHEN TAB 325 MG TAB PO STA (11:47)
--- NOTE | 2019-10-22 12:10 | ED ---
Back Pain HPI - General Chief Complaint: Back Pain/Injury Stated Complaint: LOWER BACK PAIN Time Seen by Provider: 10/22/19 11:32 Source: patient, EMS Limitations: no limitations - History of Present Illness Initial Comments: Patient is an 84-year-old male presenting to the emergency Department with complaints of left-sided low back pain that has been going on for approximately 3 months now. Patient was evaluated by his PCP and recently had a lumbar MRI which showed no acute changes. Patient is also see an orthopedic for this however he does not have an appointment yet. Patient states neither him or his drives. Patient states he came in today because the pain is constant. Patient describes it as in his left buttocks extending down to the back of his upper leg. Patient states it is intermittent at times. Patient denies fever, chills, urinary incontinence. Patient has no other complaints at this time. Upon arrival to the ER, vital signs are stable. - Related Data Home Medications Medication Instructions Recorded Confirmed Citalopram Hydrobromide 40 mg PO HS 09/29/14 12/15/18 [Citalopram HBr] Levothyroxine Sodium [Synthroid] 88 mcg PO DAILY 09/29/14 12/15/18 Multivitamins, Thera [Multivitamin 1 tab PO HS 09/29/14 12/15/18 (formulary)] Omeprazole [PriLOSEC] 20 mg PO BID 09/29/14 12/15/18 Simvastatin [Zocor] 40 mg PO HS 09/29/14 12/15/18 Cyanocobalamin [Vitamin B-12] 500 mcg PO HS 11/07/18 12/15/18 Tamsulosin HCl [Flomax] 0.4 mg PO HS@199911/07/18 12/15/18 Vit C/E/Zn/Coppr/Lutein/Zeaxan 1 cap PO BID 11/07/18 12/15/18 [Preservision Areds 2 Softgel] Acetaminophen [Tylenol] 650 mg PO Q4H PRN 11/26/18 12/15/18 Bismuth Subsalicylate [Kaopectate] 262 mg PO Q4H 11/26/18 12/15/18 Loratadine [Claritin] 10 mg PO DAILY 11/26/18 12/15/18 Melatonin 3 mg PO HS 11/26/18 12/15/18 buPROPion [Wellbutrin] 150 mg PO DAILY 11/26/18 12/15/18 Aspirin 81 mg PO HS 12/15/18 12/15/18 Kelly-Lanta 30 ml PO Q6H PRN 12/15/18 12/15/18 INSULIN ASPART (NovoLOG) [NovoLOG See Protocol SQ ACHS 12/15/18 12/15/18 (formulary)] Insulin Detemir (Levemir) [Levemir] 15 unit SQ DAILY 12/15/18 12/15/18 Ipratropium/Albuterol Sulfate 1 puff INHALATION RT-QID 12/15/18 12/15/18 [Combivent Respimat Inhaler] Lactulose [Cephulac] 20 gm PO TID PRN 12/15/18 12/15/18 amLODIPine [Norvasc] 5 mg PO BID 12/15/18 12/15/18 cycloSPORINE [Restasis] 1 drop BOTH EYES BID 12/15/18 12/15/18 Previous Rx's Medication Instructions Recorded Apixaban [Eliquis] 2.5 mg PO BID tablet 11/18/18 Docusate [Colace] 100 mg PO BID cap 11/18/18 INSULIN ASPART (NovoLOG) [NovoLOG 5 unit SQ AC-TID vial 11/18/18 (formulary)] Finasteride [Proscar] 5 mg PO DAILY tab 12/06/18 hydrALAZINE HCL [Apresoline] 50 mg PO TID tab 12/06/18 Oxybutynin Chloride [Ditropan] 2.5 mg PO BID #0 tab 12/09/18 Atenolol [Tenormin] 25 mg PO DAILY tab 12/25/18 Darbepoetin Eliud [Aranesp] 40 mcg SQ Q7D syringe 12/25/18 Dicyclomine [Bentyl] 10 mg PO TID #0 cap 12/25/18 Furosemide [Lasix] 40 mg PO BID@0900,1600 #60 tab 12/25/18 LORazepam [Ativan] 0.5 mg PO TID 3 Days #9 tab 12/25/18 Sennosides-Docusate Sodium 2 each PO BID #30 tab 12/25/18 [Senokot-S] risperiDONE [RisperDAL] 0.25 mg PO BID tab 12/25/18 Allergies Allergy/AdvReac Type Severity Reaction Status Date / Time No Known Allergies Allergy Verified 12/15/18 07:14 Review of Systems ROS Statement: Those systems with pertinent positive or pertinent negative responses have been documented in the HPI. ROS Other: All systems not noted in ROS Statement are negative. Past Medical History Past Medical History: Coronary Artery Disease (CAD), Cancer, Diabetes Mellitus, GERD/Reflux, Hyperlipidemia, Hypertension, Myocardial Infarction ([place]), Pneumonia, Prostate Disorder, Sleep Apnea/CPAP/BIPAP, Thyroid Disorder Additional Past Medical History / Comment(s): no CPAP used, hiatal hernia, hx thyroid cancer, macular degeneration danielle eyes Last Myocardial Infarction Date:: 1999 History of Any Multi-Drug Resistant Organisms: None Reported Past Surgical History: Heart Catheterization With Stent, Joint Replacement Additional Past Surgical History / Comment(s): left knee replacement, danielle cataracts, thyroidectomy Past Anesthesia/Blood Transfusion Reactions: No Reported Reaction Additional Past Anesthesia/Blood Transfusion Reaction / Comment(s): clausterphobia -"uses open mri" Date of Last Stent Placement:: 1999 Past Psychological History: Anxiety, Depression, Schizophrenia Smoking Status: Former smoker Past Alcohol Use History: None Reported Past Drug Use History: None Reported - Past Family History Father Family Medical History: Cancer Additional Family Medical History / Comment(s): Father had lung cancer and colorectal cancer. He smoked as a younger man. Mother Family Medical History: Cancer Additional Family Medical History / Comment(s): Mother had lung cancer. She was a lifelong smoker General Exam - General Exam Comments Initial Comments: GENERAL: Well-appearing, well-nourished and in no acute distress. HEAD: Atraumatic, normocephalic. EYES: Pupils equal round and reactive to light, extraocular movements intact, sclera anicteric, conjunctiva are normal. ENT: Nares patent, oropharynx clear without exudates. Moist mucous membranes. NECK: Normal range of motion, supple without lymphadenopathy or JVD. LUNGS: Breath sounds clear to auscultation bilaterally and equal. No wheezes rales or rhonchi. HEART: Regular rate and rhythm without murmurs, rubs or gallops. ABDOMEN: Soft, nontender, normoactive bowel sounds. No guarding, no rebound. No masses appreciated. : Deferred EXTREMITIES: Normal range of motion, no pitting or edema. No clubbing or cyanosis. Pain with palpation of the left sciatic area as well as left SI joint. Patient has 5 out of 5 strength bilateral lower extremities. PSYCH: Normal mood, normal affect. SKIN: Warm, Dry, normal turgor, no rashes or lesions noted. Limitations: no limitations Course Vital Signs 10/22/19 10/22/19 11:23 12:31 Temperature 98.0 F Pulse Rate 56 L 55 L Respiratory 18 18 Rate Blood Pressure 167/72 171/74 O2 Sat by Pulse 98 98 Oximetry Medical Decision Making - Medical Decision Making Patient is an 84-year-old male presenting with left-sided sciatica symptoms have been intermittent for the last few months. Exam today is consistent with this. Patient recently had normal MRI of the lumbar area. Patient will be given referral to an orthopedic. Patient states she does not want to try steroids secondary to his and having diabetes. Patient will continue with Tylenol for pain relief. I discussed at length with patient using heat and gentle stretchi ng to the area as well as trial of pillow between his legs when he sleeps on the side. Patient is stable for discharge at this time. Case discussed with Dr. Peters. Disposition Clinical Impression: Left sided sciatica Disposition: HOME SELF-CARE Condition: Stable Instructions (If sedation given, give patient instructions): Sciatica (ED) Additional Instructions: Please return to the Emergency Department if symptoms worsen or any other concerns. Follow up with orthopedics as discussed. Possible trial of physical therapy. Apply heat to the area and gentle stretching. Continue with Tylenol for pain relief. Is patient prescribed a controlled substance at d/c from ED?: No Referrals: Amy Joseph DO [Primary Care Provider] - 1-2 days Charles Angeles DO [Doctor of Osteopathic Medicine] - 1-2 days
[2019-10-22 12:32] VITALS: BP 171/74; PULSE 55
== END 2019-10-22 12:31 | disposition home or self-care (01) ==
LOC: EC 11:17
DX: M54.42 Lumbago with sciatica, left side (principal); E11.9 Type 2 diabetes mellitus without complications; I25.10 Atherosclerotic heart disease of native coronary artery without angina pectoris; K21.9 Gastro-esophageal reflux disease without esophagitis; E78.5 Hyperlipidemia, unspecified; I10 Essential (primary) hypertension; I25.2 Old myocardial infarction; N42.9 Disorder of prostate, unspecified; H35.30 Unspecified macular degeneration; F32.9 Major depressive disorder, single episode, unspecified; F41.9 Anxiety disorder, unspecified; E89.0 Postprocedural hypothyroidism; Z87.891 Personal history of nicotine dependence; Z79.4 Long term (current) use of insulin; Z79.82 Long term (current) use of aspirin; Z79.890 Hormone replacement therapy; Z79.899 Other long term (current) drug therapy; Z85.850 Personal history of malignant neoplasm of thyroid; Z87.01 Personal history of pneumonia (recurrent); Z95.5 Presence of coronary angioplasty implant and graft; Z96.652 Presence of left artificial knee joint
CPT/HCPCS: 99283

== ENCOUNTER 2020-07-17 15:52 | Inpatient (IN) | payer MEDICARE, BC ==
[2020-07-17] MEDS: MORPHINE SULFATE 4 MG/ML SYRINGE IVP STA ×2 (16:38→20:43)
[2020-07-17 16:49] LABS: Basophils # (A) 0.1 k/uL (0-0.2); Basophils % (A) 1 %; Eosinophils # (A) 0.3 k/uL (0-0.7); Eosinophils % (A) 3 %; HCT 36.9 % (39.0-53.0); HGB 11.6 gm/dL (13.0-17.5); Lymphocytes # (A) 2.1 k/uL (1.0-4.8); Lymphocytes % (A) 26 %; MCH 30.8 pg (25.0-35.0); MCHC 31.6 g/dL (31.0-37.0); MCV 97.4 fL (80.0-100.0); Mean Platelet Volume 8.1; Monocytes # (A) 0.4 k/uL (0-1.0); Monocytes % (A) 5 %; Neutrophils # (A) 5.3 k/uL (1.3-7.7); Neutrophils % (A) 64 %; Platelet Count 206 k/uL (150-450); RBC 3.79 m/uL (4.30-5.90); RDW 13.1 % (11.5-15.5); WBC 8.3 k/uL (3.8-10.6)
[2020-07-17 17:01] LABS: ALT 15 U/L (4-49); AST 15 U/L (17-59); African American GFR (CKD) 27 (>60 ml/min/1.73 sqM); Albumin 3.2 g/dL (3.5-5.0); Alkaline Phosphatase 153 U/L (38-126); Anion Gap 10 mmol/L; Blood Urea Nitrogen 55 mg/dL (9-20); Calcium 9.6 mg/dL (8.4-10.2); Carbon Dioxide 19 mmol/L (22-30); Chloride 105 mmol/L (98-107); Glucose 424 mg/dL (74-99); Non-African American GFR(CKD) 23 (>60 ml/min/1.73 sqM); Potassium 4.1 mmol/L (3.5-5.1); Sodium 134 mmol/L (137-145); Total Bilirubin 0.2 mg/dL (0.2-1.3); Total Protein 5.6 g/dL (6.3-8.2)
[2020-07-17] MEDS ORDERED: LIDOCAINE URO-JET JELLY 2% 5 ML KIT URETHRAL ONE (17:07)
[2020-07-17 17:19] LABS: Appearance,Urine Clear (Clear); Bilirubin,Urine Negative (Negative); Blood,Urine Negative (Negative); Color,Urine Light Yellow; Glucose,Urine (UA) 4+ (Negative); Ketones,Urine Negative (Negative); Leukocyte Esterase,Urine Negative (Negative); Nitrite,Urine Negative (Negative); Protein,Urine Trace (Negative); Specific Gravity,Urine 1.009 (1.001-1.035); Urobilinogen,Urine <2.0 mg/dL (<2.0)
--- NOTE | 2020-07-17 17:37 | ED ---
Back Pain HPI - General Chief Complaint: Back Pain/Injury Stated Complaint: back pain Time Seen by Provider: 07/17/20 16:00 Source: patient, EMS Limitations: no limitations - History of Present Illness Initial Comments: 85-year-old male who presents emergency room with reported left-sided bowel pain which radiates into the patient's left lower extremity. EMS was called patient 's house for back pain medicine going on significantly since yesterday. Patient reports it is worse today. It is reported as a her pain which radiates down to his foot. Has progressed to the point where he feels weak and is unable to ambulate. He took 2 Tylenol with mild improvement in pain. He denies having any falls or injury. Patient had similar symptoms at the end of last year. He did have an MRI performed that demonstrated mild disc disease. He reports that he was placed in rehab for 3 months. Since is sent home he's had issues with urinary incontinence. Denies saddle anesthesia. No bowel incontinence. No fevers or chills. Denies nausea or vomiting. No chest pain. No other alleviating, precipitating or modifying factors - Related Data Home Medications Medication Instructions Recorded Confirmed Citalopram Hydrobromide 40 mg PO DAILY@1530 09/29/14 07/17/20 [Citalopram HBr] Levothyroxine Sodium [Synthroid] 88 mcg PO QAM 09/29/14 07/17/20 Omeprazole [PriLOSEC] 20 mg PO BID@0700,1530 09/29/14 07/17/20 Tamsulosin HCl [Flomax] 0.4 mg PO HS@199911/07/18 07/17/20 Vit C/E/Zn/Coppr/Lutein/Zeaxan 1 cap PO BID@0700,1530 11/07/18 07/17/20 [Preservision Areds 2 Softgel] Acetaminophen [Tylenol] 650 mg PO Q4H PRN 11/26/18 07/17/20 Melatonin 3 mg PO HS 11/26/18 07/17/20 buPROPion [Wellbutrin] 150 mg PO HS 11/26/18 07/17/20 Kelly-Lanta 30 ml PO Q6H PRN 12/15/18 07/17/20 Insulin Detemir (Levemir) [Levemir] 10 unit SQ QAM 12/15/18 07/17/20 cycloSPORINE [Restasis] 1 drop BOTH EYES BID PRN 12/15/18 07/17/20 Apixaban [Eliquis] 2.5 mg PO BID@0700,0 07/17/20 07/17/20 Aspirin 325 mg PO DAILY@15307/17/20 07/17/20 Calcitriol [Rocaltrol] 0.25 mcg PO Q7D 07/17/20 07/17/20 Docusate [Colace] 100 mg PO DAILY PRN 07/17/20 07/17/20 Ferrous Sulfate [Iron] 325 mg PO HS 07/17/20 07/17/20 Finasteride [Proscar] 5 mg PO QAM 07/17/20 07/17/20 Furosemide [Lasix] 40 mg PO QAM 07/17/20 07/17/20 Kelly-Pectate Suspension 262mg/15ml 262 mg PO Q4H PRN 07/17/20 07/17/20 Insulin Detemir (Levemir) [Levemir] 25 units SQ 07/17/20 07/17/20 LORazepam [Ativan] 0.5 mg PO HS PRN 07/17/20 07/17/20 Oxybutynin Chloride [Ditropan] 2.5 mg PO BID@0700,152907/17/20 07/17/20 Potassium Chloride ER [K-Dur 10] 10 meq PO QAM 07/17/20 07/17/20 Sennosides-Docusate Sodium 1 each PO BID@0700,152907/17/20 07/17/20 [Senokot-S] Simvastatin [Zocor] 40 mg PO HS@199907/17/20 07/17/20 atenoloL [Tenormin] 25 mg PO QAM 07/17/20 07/17/20 glipiZIDE [Glucotrol] 10 mg PO [facility] 07/17/20 07/17/20 hydrALAZINE HCL [Apresoline] 25 mg PO TID@0700,1530,199907/17/20 07/17/20 hydrOXYzine pamoate [hydrOXYzine 25 mg PO HS 07/17/20 07/17/20 PAMOATE] Previous Rx's Medication Instructions Recorded Dicyclomine [Bentyl] 10 mg PO TID #0 cap 12/25/18 Allergies Allergy/AdvReac Type Severity Reaction Status Date / Time shellfish derived [Shellfish] AdvReac Rash/Hives Verified 07/17/20 22:32 Review of Systems ROS Statement: Those systems with pertinent positive or pertinent negative responses have been documented in the HPI. ROS Other: All systems not noted in ROS Statement are negative. Past Medical History Past Medical History: Coronary Artery Disease (CAD), Cancer, Diabetes Mellitus, GERD/Reflux, Hyperlipidemia, Hypertension, Myocardial Infarction ([place]), Pneumonia, Prostate Disorder, Sleep Apnea/CPAP/BIPAP, Thyroid Disorder Additional Past Medical History / Comment(s): no CPAP used, hiatal hernia, hx thyroid cancer, macular degeneration danielle eyes Last Myocardial Infarction Date:: 1999 History of Any Multi-Drug Resistant Organisms: None Reported Past Surgical History: Heart Catheterization With Stent, Joint Replacement Additional Past Surgical History / Comment(s): left knee replacement, danielle catar acts, thyroidectomy Past Anesthesia/Blood Transfusion Reactions: No Reported Reaction Additional Past Anesthesia/Blood Transfusion Reaction / Comment(s): clausterphobia -"uses open mri" Date of Last Stent Placement:: 1999 Past Psychological History: Anxiety, Depression, Schizophrenia Smoking Status: Never smoker Past Alcohol Use History: None Reported Past Drug Use History: None Reported - Past Family History Father Family Medical History: Cancer Additional Family Medical History / Comment(s): Father had lung cancer and colorectal cancer. He smoked as a younger man. Mother Family Medical History: Cancer Additional Family Medical History / Comment(s): Mother had lung cancer. She was a lifelong smoker General Exam Limitations: no limitations General appearance: alert, in no apparent distress Head exam: Present: atraumatic, normocephalic, normal inspection Eye exam: Present: normal appearance, PERRL, EOMI. Absent: scleral icterus, conjunctival injection, periorbital swelling ENT exam: Present: normal exam, mucous membranes moist Neck exam: Present: normal inspection. Absent: tenderness, meningismus, lymph adenopathy Respiratory exam: Present: normal lung sounds bilaterally. Absent: respiratory distress, wheezes, rales, rhonchi, stridor Cardiovascular Exam: Present: regular rate, normal rhythm, normal heart sounds. Absent: systolic murmur, diastolic murmur, rubs, gallop, clicks GI/Abdominal exam: Present: soft, normal bowel sounds. Absent: distended, tenderness, guarding, rebound, rigid Extremities exam: Present: full ROM, tenderness (left si joint. 4/5 muscle strength hip flexor on the left. Intact knee extensor, ankle and great toe dorsiflexor and foot plantarflexors. ), normal capillary refill. Absent: pedal edema, joint swelling, calf tenderness Back exam: Present: normal inspection, tenderness, CVA tenderness (L), muscle spasm, paraspinal tenderness. Absent: vertebral tenderness Neurological exam: Present: alert, oriented X3, CN II-XII intact Psychiatric exam: Present: normal affect, normal mood Skin exam: Present: warm, dry, intact, normal color. Absent: rash Course Vital Signs 07/17/20 07/17/20 07/17/20 15:57 18:08 19:03 Temperature 97.7 F 98.5 F Pulse Rate 60 56 L 56 L Pulse Rate [ Supine Pulse Oximetery] Respiratory 18 18 18 Rate Blood Pressure 168/110 188/81 189/81 Blood Pressure [Left Arm Supine] O2 Sat by Pulse 97 96 98 Oximetry 07/17/20 07/17/20 20:46 21:00 Temperature 97.9 F Pulse Rate 54 L Pulse Rate [ 51 L Supine Pulse Oximetery] Respiratory 18 18 Rate Blood Pressure 192/86 Blood Pressure 192/76 [Left Arm Supine] O2 Sat by Pulse 98 98 Oximetry Medical Decision Making - Medical Decision Making Upon arrival the patient is placed into room 9. A thorough history and physical exam was performed. Peripheral IV is established. The patient is given a liter bolus of normal saline and 4 mg of morphine for pain control. Dr. jackson says her conducted. Sugars are elevated at 424. No signs of DKA. Lactic acid is 3.1. Acetone is negative. CT of the patient's abdomen and pelvis as well as lumbar spine is performed without contrast due to the patient's arielle/chronic kidney disease. CT of the abdomen and pelvis without contrast demonstrates diverticulosis without acute diverticulitis. Cholelithiasis. Lumbar spine CT demonstrates disc bulging with mild anterior thecal sac compression. Large facet hypertrophy at L5-S1 on the left. The patient is reevaluated has marked improvement in his pain. I did recommend hospital admission for hyperglycemia, Arielle and intractable pain with increasing weakness. Patient agreed. Case discussed with Dr. Stokes who accepted admission. Patient is currently awaiting a bed on the floor - Lab Data Result diagrams: 07/20/20 08:26 07/22/20 10:48 Lab Results 07/17/20 07/17/20 07/17/20 Range/Units 16:35 16:35 16:35 WBC 8.3 (3.8-10.6) k/uL RBC 3.79 L (4.30-5.90) m/uL Hgb 11.6 L (13.0-17.5) gm/dL Hct 36.9 L (39.0-53.0) % MCV 97.4 (80.0-100.0) fL MCH 30.8 (25.0-35.0) pg MCHC 31.6 (31.0-37.0) g/dL RDW 13.1 (11.5-15.5) % Plt Count 206 (150-450) k/uL Neutrophils % 64 % Lymphocytes % 26 % Monocytes % 5 % Eosinophils % 3 % Basophils % 1 % Neutrophils # 5.3 (1.3-7.7) k/uL Lymphocytes # 2.1 (1.0-4.8) k/uL Monocytes # 0.4 (0-1.0) k/uL Eosinophils # 0.3 (0-0.7) k/uL Basophils # 0.1 (0-0.2) k/uL Hypochromasia ESR (0-15) mm/hr Sodium 134 L (137-145) mmol/L Potassium 4.1 (3.5-5.1) mmol/L Chloride 105 (98-107) mmol/L Carbon Dioxide 19 L (22-30) mmol/L Anion Gap 10 mmol/L BUN 55 H (9-20) mg/dL Creatinine 2.45 H (0.66-1.25) mg/dL Est GFR (CKD-EPI)AfAm 27 (>60 ml/min/1.73 sqM) Est GFR (CKD-EPI)NonAf 23 (>60 ml/min/1.73 sqM) Glucose 424 H (74-99) mg/dL POC Glucose (mg/dL) (75-99) mg/dL POC Glu Child Nutrition Assistant ID Estimated Ave Glu mg/dL Hemoglobin A1c (4.0-6.0) % Lactic Ac Sepsis Rflx Plasma Lactic Acid Qasim 3.1 H* (0.7-2.0) mmol/L Calcium 9.6 (8.4-10.2) mg/dL Total Bilirubin 0.2 (0.2-1.3) mg/dL AST 15 L (17-59) U/L ALT 15 (4-49) U/L Alkaline Phosphatase 153 H (38-126) U/L C-Reactive Protein (<10.0) mg/L Total Protein 5.6 L (6.3-8.2) g/dL Albumin 3.2 L (3.5-5.0) g/dL Vitamin B12 (200.0-944.0) pg/mL Folate ng/mL RBC Folate (280 - 791) ng/mL Urine Color Urine Appearance (Clear) Urine pH (5.0-8.0) Ur Specific [place] (1.001-1.035) Urine Protein (Negative) Urine Glucose (UA) (Negative) Urine Ketones (Negative) Urine Blood (Negative) Urine Nitrite (Negative) Urine Bilirubin (Negative) Urine Urobilinogen (<2.0) mg/dL Ur Leukocyte Esterase (Negative) Acetone, Qual Negative (Negative) 07/17/20 07/17/20 07/17/20 Range/Units 16:57 17:15 19:03 WBC (3.8-10.6) k/uL RBC (4.30-5.90) m/uL Hgb (13.0-17.5) gm/dL Hct (39.0-53.0) % MCV (80.0-100.0) fL MCH (25.0-35.0) pg MCHC (31.0-37.0) g/dL RDW (11.5-15.5) % Plt Count (150-450) k/uL Neutrophils % % Lymphocytes % % Monocytes % % Eosinophils % % Basophils % % Neutrophils # (1.3-7.7) k/uL Lymphocytes # (1.0-4.8) k/uL Monocytes # (0-1.0) k/uL Eosinophils # (0-0.7) k/uL Basophils # (0-0.2) k/uL Hypochromasia ESR (0-15) mm/hr Sodium (137-145) mmol/L Potassium (3.5-5.1) mmol/L Chloride (98-107) mmol/L Carbon Dioxide (22-30) mmol/L Anion Gap mmol/L BUN (9-20) mg/dL Creatinine (0.66-1.25) mg/dL Est GFR (CKD-EPI)AfAm (>60 ml/min/1.73 sqM) Est GFR (CKD-EPI)NonAf (>60 ml/min/1.73 sqM) Glucose (74-99) mg/dL POC Glucose (mg/dL) (75-99) mg/dL POC Glu Child Nutrition Assistant ID Estimated Ave Glu mg/dL Hemoglobin A1c (4.0-6.0) % Lactic Ac Sepsis Rflx Y Plasma Lactic Acid Qasim 1.6 (0.7-2.0) mmol/L Calcium (8.4-10.2) mg/dL Total Bilirubin (0.2-1.3) mg/dL AST (17-59) U/L ALT (4-49) U/L Alkaline Phosphatase (38-126) U/L C-Reactive Protein (<10.0) mg/L Total Protein (6.3-8.2) g/dL Albumin (3.5-5.0) g/dL Vitamin B12 (200.0-944.0) pg/mL Folate ng/mL RBC Folate (280 - 791) ng/mL Urine Color Light Yellow Urine Appearance Clear (Clear) Urine pH 5.0 (5.0-8.0) Ur Specific [place] 1.009 (1.001-1.035) Urine Protein Trace H (Negative) Urine Glucose (UA) 4+ H (Negative) Urine Ketones Negative (Negative) Urine Blood Negative (Negative) Urine Nitrite Negative (Negative) Urine Bilirubin Negative (Negative) Urine Urobilinogen <2.0 (<2.0) mg/dL Ur Leukocyte Esterase Negative (Negative) Acetone, Qual (Negative) 07/17/20 07/17/20 07/18/20 Range/Units 19:18 21:46 07:02 WBC 9.4 (3.8-10.6) k/uL RBC 3.84 L (4.30-5.90) m/uL Hgb 11.7 L (13.0-17.5) gm/dL Hct 38.0 L (39.0-53.0) % MCV 99.0 (80.0-100.0) fL MCH 30.5 (25.0-35.0) pg MCHC 30.8 L (31.0-37.0) g/dL RDW 12.9 (11.5-15.5) % Plt Count 194 (150-450) k/uL Neutrophils % 60 % Lymphocytes % 27 % Monocytes % 5 % Eosinophils % 6 % Basophils % 1 % Neutrophils # 5.7 (1.3-7.7) k/uL Lymphocytes # 2.5 (1.0-4.8) k/uL Monocytes # 0.5 (0-1.0) k/uL Eosinophils # 0.5 (0-0.7) k/uL Basophils # 0.1 (0-0.2) k/uL Hypochromasia Slight ESR (0-15) mm/hr Sodium (137-145) mmol/L Potassium (3.5-5.1) mmol/L Chloride (98-107) mmol/L Carbon Dioxide (22-30) mmol/L Anion Gap mmol/L BUN (9-20) mg/dL Creatinine (0.66-1.25) mg/dL Est GFR (CKD-EPI)AfAm (>60 ml/min/1.73 sqM) Est GFR (CKD-EPI)NonAf (>60 ml/min/1.73 sqM) Glucose (74-99) mg/dL POC Glucose (mg/dL) 327 H 316 H (75-99) mg/dL POC Glu Child Nutrition Assistant ID Miguel A Gomez Juan Luis Lucina [address] Glu mg/dL Hemoglobin A1c (4.0-6.0) % Lactic Ac Sepsis Rflx Plasma Lactic Acid Qasim (0.7-2.0) mmol/L Calcium (8.4-10.2) mg/dL Total Bilirubin (0.2-1.3) mg/dL AST (17-59) U/L ALT (4-49) U/L Alkaline Phosphatase (38-126) U/L C-Reactive Protein (<10.0) mg/L Total Protein (6.3-8.2) g/dL Albumin (3.5-5.0) g/dL Vitamin B12 (200.0-944.0) pg/mL Folate ng/mL RBC Folate (280 - 791) ng/mL Urine Color Urine Appearance (Clear) Urine pH (5.0-8.0) Ur Specific [place] (1.001-1.035) Urine Protein (Negative) Urine Glucose (UA) (Negative) Urine Ketones (Negative) Urine Blood (Negative) Urine Nitrite (Negative) Urine Bilirubin (Negative) Urine Urobilinogen (<2.0) mg/dL Ur Leukocyte Esterase (Negative) Acetone, Qual (Negative) 07/18/20 07/18/20 07/18/20 Range/Units 07:02 07:02 07:15 WBC (3.8-10.6) k/uL RBC (4.30-5.90) m/uL Hgb (13.0-17.5) gm/dL Hct (39.0-53.0) % MCV (80.0-100.0) fL MCH (25.0-35.0) pg MCHC (31.0-37.0) g/dL RDW (11.5-15.5) % Plt Count (150-450) k/uL Neutrophils % % Lymphocytes % % Monocytes % % Eosinophils % % Basophils % % Neutrophils # (1.3-7.7) k/uL Lymphocytes # (1.0-4.8) k/uL Monocytes # (0-1.0) k/uL Eosinophils # (0-0.7) k/uL Basophils # (0-0.2) k/uL Hypochromasia ESR (0-15) mm/hr Sodium 140 (137-145) mmol/L Potassium 3.8 (3.5-5.1) mmol/L Chloride 113 H (98-107) mmol/L Carbon Dioxide 21 L (22-30) mmol/L Anion Gap 6 mmol/L BUN 55 H (9-20) mg/dL Creatinine 2.31 H (0.66-1.25) mg/dL Est GFR (CKD-EPI)AfAm 29 (>60 ml/min/1.73 sqM) Est GFR (CKD-EPI)NonAf 25 (>60 ml/min/1.73 sqM) Glucose 117 H (74-99) mg/dL POC Glucose (mg/dL) 128 H (75-99) mg/dL POC Glu Child Nutrition Assistant ID Letty Marcos Estimated Ave Glu mg/dL Hemoglobin A1c (4.0-6.0) % Lactic Ac Sepsis Rflx Plasma Lactic Acid Qasim (0.7-2.0) mmol/L Calcium 8.9 (8.4-10.2) mg/dL Total Bilirubin (0.2-1.3) mg/dL AST (17-59) U/L ALT (4-49) U/L Alkaline Phosphatase (38-126) U/L C-Reactive Protein (<10.0) mg/L Total Protein (6.3-8.2) g/dL Albumin (3.5-5.0) g/dL Vitamin B12 (200.0-944.0) pg/mL Folate ng/mL RBC Folate 1,003 H (280 - 791) ng/mL Urine Color Urine Appearance (Clear) Urine pH (5.0-8.0) Ur Specific [place] (1.001-1.035) Urine Protein (Negative) Urine Glucose (UA) (Negative) Urine Ketones (Negative) Urine Blood (Negative) Urine Nitrite (Negative) Urine Bilirubin (Negative) Urine Urobilinogen (<2.0) mg/dL Ur Leukocyte Esterase (Negative) Acetone, Qual (Negative) 07/18/20 07/18/20 07/18/20 Range/Units 11:37 17:07 19:09 WBC (3.8-10.6) k/uL RBC (4.30-5.90) m/uL Hgb (13.0-17.5) gm/dL Hct (39.0-53.0) % MCV (80.0-100.0) fL MCH (25.0-35.0) pg MCHC (31.0-37.0) g/dL RDW (11.5-15.5) % Plt Count (150-450) k/uL Neutrophils % % Lymphocytes % % Monocytes % % Eosinophils % % Basophils % % Neutrophils # (1.3-7.7) k/uL Lymphocytes # (1.0-4.8) k/uL Monocytes # (0-1.0) k/uL Eosinophils # (0-0.7) k/uL Basophils # (0-0.2) k/uL Hypochromasia ESR (0-15) mm/hr Sodium (137-145) mmol/L Potassium (3.5-5.1) mmol/L Chloride (98-107) mmol/L Carbon Dioxide (22-30) mmol/L Anion Gap mmol/L BUN (9-20) mg/dL Creatinine (0.66-1.25) mg/dL Est GFR (CKD-EPI)AfAm (>60 ml/min/1.73 sqM) Est GFR (CKD-EPI)NonAf (>60 ml/min/1.73 sqM) Glucose (74-99) mg/dL POC Glucose (mg/dL) 164 H 315 H 336 H (75-99) mg/dL POC Glu Child Nutrition Assistant ID Priti, Letty Rocco, Leisa Rocco, Leisa [address]imated Ave Glu mg/dL Hemoglobin A1c (4.0-6.0) % Lactic Ac Sepsis Rflx Plasma Lactic Acid Qasim (0.7-2.0) mmol/L Calcium (8.4-10.2) mg/dL Total Bilirubin (0.2-1.3) mg/dL AST (17-59) U/L ALT (4-49) U/L Alkaline Phosphatase (38-126) U/L C-Reactive Protein (<10.0) mg/L Total Protein (6.3-8.2) g/dL Albumin (3.5-5.0) g/dL Vitamin B12 (200.0-944.0) pg/mL Folate ng/mL RBC Folate (280 - 791) ng/mL Urine Color Urine Appearance (Clear) Urine pH (5.0-8.0) Ur Specific [place] (1.001-1.035) Urine Protein (Negative) Urine Glucose (UA) (Negative) Urine Ketones (Negative) Urine Blood (Negative) Urine Nitrite (Negative) Urine Bilirubin (Negative) Urine Urobilinogen (<2.0) mg/dL Ur Leukocyte Esterase (Negative) Acetone, Qual (Negative) 07/18/20 07/18/20 07/18/20 Range/Units 19:43 20:06 20:27 WBC (3.8-10.6) k/uL RBC (4.30-5.90) m/uL Hgb (13.0-17.5) gm/dL Hct (39.0-53.0) % MCV (80.0-100.0) fL MCH (25.0-35.0) pg MCHC (31.0-37.0) g/dL RDW (11.5-15.5) % Plt Count (150-450) k/uL Neutrophils % % Lymphocytes % % Monocytes % % Eosinophils % % Basophils % % Neutrophils # (1.3-7.7) k/uL Lymphocytes # (1.0-4.8) k/uL Monocytes # (0-1.0) k/uL Eosinophils # (0-0.7) k/uL Basophils # (0-0.2) k/uL Hypochromasia ESR (0-15) mm/hr Sodium (137-145) mmol/L Potassium (3.5-5.1) mmol/L Chloride (98-107) mmol/L Carbon Dioxide (22-30) mmol/L Anion Gap mmol/L BUN (9-20) mg/dL Creatinine (0.66-1.25) mg/dL Est GFR (CKD-EPI)AfAm (>60 ml/min/1.73 sqM) Est GFR (CKD-EPI)NonAf (>60 ml/min/1.73 sqM) Glucose (74-99) mg/dL POC Glucose (mg/dL) 300 H 280 H 270 H (75-99) mg/dL POC Glu Child Nutrition Assistant Leisa Heredia, Leisa Alicia [address] Glu mg/dL Hemoglobin A1c (4.0-6.0) % Lactic Ac Sepsis Rflx Plasma Lactic Acid Qasim (0.7-2.0) mmol/L Calcium (8.4-10.2) mg/dL Total Bilirubin (0.2-1.3) mg/dL AST (17-59) U/L ALT (4-49) U/L Alkaline Phosphatase (38-126) U/L C-Reactive Protein (<10.0) mg/L Total Protein (6.3-8.2) g/dL Albumin (3.5-5.0) g/dL Vitamin B12 (200.0-944.0) pg/mL Folate ng/mL RBC Folate (280 - 791) ng/mL Urine Color Urine Appearance (Clear) Urine pH (5.0-8.0) Ur Specific [place] (1.001-1.035) Urine Protein (Negative) Urine Glucose (UA) (Negative) Urine Ketones (Negative) Urine Blood (Negative) Urine Nitrite (Negative) Urine Bilirubin (Negative) Urine Urobilinogen (<2.0) mg/dL Ur Leukocyte Esterase (Negative) Acetone, Qual (Negative) 07/18/20 07/18/20 07/19/20 Range/Units 21:03 23:01 00:58 WBC (3.8-10.6) k/uL RBC (4.30-5.90) m/uL Hgb (13.0-17.5) gm/dL Hct (39.0-53.0) % MCV (80.0-100.0) fL MCH (25.0-35.0) pg MCHC (31.0-37.0) g/dL RDW (11.5-15.5) % Plt Count (150-450) k/uL Neutrophils % % Lymphocytes % % Monocytes % % Eosinophils % % Basophils % % Neutrophils # (1.3-7.7) k/uL Lymphocytes # (1.0-4.8) k/uL Monocytes # (0-1.0) k/uL Eosinophils # (0-0.7) k/uL Basophils # (0-0.2) k/uL Hypochromasia ESR (0-15) mm/hr Sodium (137-145) mmol/L Potassium (3.5-5.1) mmol/L Chloride (98-107) mmol/L Carbon Dioxide (22-30) mmol/L Anion Gap mmol/L BUN (9-20) mg/dL Creatinine (0.66-1.25) mg/dL Est GFR (CKD-EPI)AfAm (>60 ml/min/1.73 sqM) Est GFR (CKD-EPI)NonAf (>60 ml/min/1.73 sqM) Glucose (74-99) mg/dL POC Glucose (mg/dL) 231 H 151 H 107 H (75-99) mg/dL POC Glu Child Nutrition Assistant Leisa Heredia, Lucina Rivera [address] Glu mg/dL Hemoglobin A1c (4.0-6.0) % Lactic Ac Sepsis Rflx Plasma Lactic Acid Qasim (0.7-2.0) mmol/L Calcium (8.4-10.2) mg/dL Total Bilirubin (0.2-1.3) mg/dL AST (17-59) U/L ALT (4-49) U/L Alkaline Phosphatase (38-126) U/L C-Reactive Protein (<10.0) mg/L Total Protein (6.3-8.2) g/dL Albumin (3.5-5.0) g/dL Vitamin B12 (200.0-944.0) pg/mL Folate ng/mL RBC Folate (280 - 791) ng/mL Urine Color Urine Appearance (Clear) Urine pH (5.0-8.0) Ur Specific [place] (1.001-1.035) Urine Protein (Negative) Urine Glucose (UA) (Negative) Urine Ketones (Negative) Urine Blood (Negative) Urine Nitrite (Negative) Urine Bilirubin (Negative) Urine Urobilinogen (<2.0) mg/dL Ur Leukocyte Esterase (Negative) Acetone, Qual (Negative) 07/19/20 07/19/20 07/19/20 Range/Units 02:05 03:03 05:00 WBC (3.8-10.6) k/uL RBC (4.30-5.90) m/uL Hgb (13.0-17.5) gm/dL Hct (39.0-53.0) % MCV (80.0-100.0) fL MCH (25.0-35.0) pg MCHC (31.0-37.0) g/dL RDW (11.5-15.5) % Plt Count (150-450) k/uL Neutrophils % % Lymphocytes % % Monocytes % % Eosinophils % % Basophils % % Neutrophils # (1.3-7.7) k/uL Lymphocytes # (1.0-4.8) k/uL Monocytes # (0-1.0) k/uL Eosinophils # (0-0.7) k/uL Basophils # (0-0.2) k/uL Hypochromasia ESR (0-15) mm/hr Sodium (137-145) mmol/L Potassium (3.5-5.1) mmol/L Chloride (98-107) mmol/L Carbon Dioxide (22-30) mmol/L Anion Gap mmol/L BUN (9-20) mg/dL Creatinine (0.66-1.25) mg/dL Est GFR (CKD-EPI)AfAm (>60 ml/min/1.73 sqM) Est GFR (CKD-EPI)NonAf (>60 ml/min/1.73 sqM) Glucose (74-99) mg/dL POC Glucose (mg/dL) 125 H 175 H 177 H (75-99) mg/dL POC Glu Child Nutrition Assistant ID Juan Luis, Lucina Fuchs, Natalia Fuchs, Natalia Estimated Ave Glu mg/dL Hemoglobin A1c (4.0-6.0) % Lactic Ac Sepsis Rflx Plasma Lactic Acid Qasim (0.7-2.0) mmol/L Calcium (8.4-10.2) mg/dL Total Bilirubin (0.2-1.3) mg/dL AST (17-59) U/L ALT (4-49) U/L Alkaline Phosphatase (38-126) U/L C-Reactive Protein (<10.0) mg/L Total Protein (6.3-8.2) g/dL Albumin (3.5-5.0) g/dL Vitamin B12 (200.0-944.0) pg/mL Folate ng/mL RBC Folate (280 - 791) ng/mL Urine Color Urine Appearance (Clear) Urine pH (5.0-8.0) Ur Specific [place] (1.001-1.035) Urine Protein (Negative) Urine Glucose (UA) (Negative) Urine Ketones (Negative) Urine Blood (Negative) Urine Nitrite (Negative) Urine Bilirubin (Negative) Urine Urobilinogen (<2.0) mg/dL Ur Leukocyte Esterase (Negative) Acetone, Qual (Negative) 07/19/20 07/19/20 07/19/20 Range/Units 06:57 07:12 07:12 WBC 14.2 H (3.8-10.6) k/uL RBC 3.74 L (4.30-5.90) m/uL Hgb 11.4 L (13.0-17.5) gm/dL Hct 36.9 L (39.0-53.0) % MCV 98.5 (80.0-100.0) fL MCH 30.5 (25.0-35.0) pg MCHC 31.0 (31.0-37.0) g/dL RDW 12.9 (11.5-15.5) % Plt Count 204 (150-450) k/uL Neutrophils % 88 % Lymphocytes % 9 % Monocytes % 3 % Eosinophils % 0 % Basophils % 0 % Neutrophils # 12.4 H (1.3-7.7) k/uL Lymphocytes # 1.2 (1.0-4.8) k/uL Monocytes # 0.4 (0-1.0) k/uL Eosinophils # 0.0 (0-0.7) k/uL Basophils # 0.0 (0-0.2) k/uL Hypochromasia Slight ESR (0-15) mm/hr Sodium 138 (137-145) mmol/L Potassium 4.8 (3.5-5.1) mmol/L Chloride 112 H (98-107) mmol/L Carbon Dioxide 22 (22-30) mmol/L Anion Gap 4 mmol/L BUN 55 H (9-20) mg/dL Creatinine 2.22 H (0.66-1.25) mg/dL Est GFR (CKD-EPI)AfAm 31 (>60 ml/min/1.73 sqM) Est GFR (CKD-EPI)NonAf 27 (>60 ml/min/1.73 sqM) Glucose 133 H (74-99) mg/dL POC Glucose (mg/dL) 141 H (75-99) mg/dL POC Glu Child Nutrition Assistant ID Letty Marcos [address]imated [address] Glu mg/dL Hemoglobin A1c (4.0-6.0) % Lactic Ac Sepsis Rflx Plasma Lactic Acid Qasim (0.7-2.0) mmol/L Calcium 8.7 (8.4-10.2) mg/dL Total Bilirubin (0.2-1.3) mg/dL AST (17-59) U/L ALT (4-49) U/L Alkaline Phosphatase (38-126) U/L C-Reactive Protein (<10.0) mg/L Total Protein (6.3-8.2) g/dL Albumin (3.5-5.0) g/dL Vitamin B12 (200.0-944.0) pg/mL Folate ng/mL RBC Folate (280 - 791) ng/mL Urine Color Urine Appearance (Clear) Urine pH (5.0-8.0) Ur Specific [place] (1.001-1.035) Urine Protein (Negative) Urine Glucose (UA) (Negative) Urine Ketones (Negative) Urine Blood (Negative) Urine Nitrite (Negative) Urine Bilirubin (Negative) Urine Urobilinogen (<2.0) mg/dL Ur Leukocyte Esterase (Negative) Acetone, Qual (Negative) 07/19/20 07/19/20 07/19/20 Range/Units 07:12 07:12 07:12 WBC (3.8-10.6) k/uL RBC (4.30-5.90) m/uL Hgb (13.0-17.5) gm/dL Hct (39.0-53.0) % MCV (80.0-100.0) fL MCH (25.0-35.0) pg MCHC (31.0-37.0) g/dL RDW (11.5-15.5) % Plt Count (150-450) k/uL Neutrophils % % Lymphocytes % % Monocytes % % Eosinophils % % Basophils % % Neutrophils # (1.3-7.7) k/uL Lymphocytes # (1.0-4.8) k/uL Monocytes # (0-1.0) k/uL Eosinophils # (0-0.7) k/uL Basophils # (0-0.2) k/uL Hypochromasia ESR 21 H (0-15) mm/hr Sodium (137-145) mmol/L Potassium (3.5-5.1) mmol/L Chloride (98-107) mmol/L Carbon Dioxide (22-30) mmol/L Anion Gap mmol/L BUN (9-20) mg/dL Creatinine (0.66-1.25) mg/dL Est GFR (CKD-EPI)AfAm (>60 ml/min/1.73 sqM) Est GFR (CKD-EPI)NonAf (>60 ml/min/1.73 sqM) Glucose (74-99) mg/dL POC Glucose (mg/dL) (75-99) mg/dL POC Glu Child Nutrition Assistant ID Estimated Ave Glu mg/dL 260 Hemoglobin A1c 10.7 H (4.0-6.0) % Lactic Ac Sepsis Rflx Plasma Lactic Acid Qasim (0.7-2.0) mmol/L Calcium (8.4-10.2) mg/dL Total Bilirubin (0.2-1.3) mg/dL AST (17-59) U/L ALT (4-49) U/L Alkaline Phosphatase (38-126) U/L C-Reactive Protein 10.9 H (<10.0) mg/L Total Protein (6.3-8.2) g/dL Albumin (3.5-5.0) g/dL Vitamin B12 (200.0-944.0) pg/mL Folate ng/mL RBC Folate (280 - 791) ng/mL Urine Color Urine Appearance (Clear) Urine pH (5.0-8.0) Ur Specific [place] (1.001-1.035) Urine Protein (Negative) Urine Glucose (UA) (Negative) Urine Ketones (Negative) Urine Blood (Negative) Urine Nitrite (Negative) Urine Bilirubin (Negative) Urine Urobilinogen (<2.0) mg/dL Ur Leukocyte Esterase (Negative) Acetone, Qual (Negative) 07/19/20 Range/Units 07:12 WBC (3.8-10.6) k/uL RBC (4.30-5.90) m/uL Hgb (13.0-17.5) gm/dL Hct (39.0-53.0) % MCV (80.0-100.0) fL MCH (25.0-35.0) pg MCHC (31.0-37.0) g/dL RDW (11.5-15.5) % Plt Count (150-450) k/uL Neutrophils % % Lymphocytes % % Monocytes % % Eosinophils % % Basophils % % Neutrophils # (1.3-7.7) k/uL Lymphocytes # (1.0-4.8) k/uL Monocytes # (0-1.0) k/uL Eosinophils # (0-0.7) k/uL Basophils # (0-0.2) k/uL Hypochromasia ESR (0-15) mm/hr Sodium (137-145) mmol/L Potassium (3.5-5.1) mmol/L Chloride (98-107) mmol/L Carbon Dioxide (22-30) mmol/L Anion Gap mmol/L BUN (9-20) mg/dL Creatinine (0.66-1.25) mg/dL Est GFR (CKD-EPI)AfAm (>60 ml/min/1.73 sqM) Est GFR (CKD-EPI)NonAf (>60 ml/min/1.73 sqM) Glucose (74-99) mg/dL POC Glucose (mg/dL) (75-99) mg/dL POC Glu Child Nutrition Assistant ID Estimated Ave Glu mg/dL Hemoglobin A1c (4.0-6.0) % Lactic Ac Sepsis Rflx Plasma Lactic Acid Qasim (0.7-2.0) mmol/L Calcium (8.4-10.2) mg/dL Total Bilirubin (0.2-1.3) mg/dL AST (17-59) U/L ALT (4-49) U/L Alkaline Phosphatase (38-126) U/L C-Reactive Protein (<10.0) mg/L Total Protein (6.3-8.2) g/dL Albumin (3.5-5.0) g/dL Vitamin B12 299.0 (200.0-944.0) pg/mL Folate >24.0 ng/mL RBC Folate (280 - 791) ng/mL Urine Color Urine Appearance (Clear) Urine pH (5.0-8.0) Ur Specific [place] (1.001-1.035) Urine Protein (Negative) Urine Glucose (UA) (Negative) Urine Ketones (Negative) Urine Blood (Negative) Urine Nitrite (Negative) Urine Bilirubin (Negative) Urine Urobilinogen (<2.0) mg/dL Ur Leukocyte Esterase (Negative) Acetone, Qual (Negative) Disposition Clinical Impression: Incomplete bladder emptying, Back pain, Lumbar radiculopathy, ARIELLE (acute kidney injury) Disposition: ADMITTED IP TO THIS HOSP Condition: Stable Is patient prescribed a controlled substance at d/c from ED?: No Decision to Admit Reason: Admit from EC Decision Date: 07/17/20 Decision Time: 18:48
[2020-07-17] MEDS ORDERED: SODIUM CHLORIDE 0.9% 1,000 ML IV ONE (18:00)
--- NOTE | 2020-07-17 18:40 | CT ---
EXAMINATION TYPE: CT abdomen pelvis wo con DATE OF EXAM: 07/17/2020 COMPARISON: 12/22/2018 INDICATION: LLQ pain, lower back pain. DLP: 2217.4 mGycm, Automated exposure control for dose reduction was used. CONTRAST: mL of Isovue 300. Study performed without Oral Contrast TECHNIQUE: Axial images were obtained from above the diaphragm to the pubic rami in the axial plane a t 5 mm thick sections. Reconstructed images are reviewed on the computer in the coronal plane. FINDINGS: Limited CT sections are obtained the lung bases. Lung bases are clear.. CT ABDOMEN: Liver: Normal Spleen: Calcification is within the posterior spleen Pancreas: Atrophic Adrenal glands: The adrenal glands are normal. Gallbladder: Gallstones are present Kidneys: No masses are evident. No hydronephrosis is present. Cyst on the cortical margin of the in ferior left kidney. There is a rounded density with interval response measuring 3.7 x 2.8 cm may be a largely exophytic cyst. This has Hounsfield unit measurement of 11 This was present previously. Del ayed images were obtained through the kidneys, which remain unremarkable. Aorta: Vascular calcification is within the aorta. Inferior vena cava: Normal. CT PELVIS: Diverticulosis is present without acute diverticulitis. No suspicious inflammatory changes are eviden t. No dilated loops of bowel are evident. Study is without oral contrast limiting bowel evaluation. Appendix: Not visualized. No suspicious dilated tubular structures or inflammatory changes are eviden t. Urinary bladder: Decompressed with a Lamas catheter. Small amount of air is present within the Lamas bulb. Genitourinary structures: Prostate is unremarkable Osseous structures: No suspicious lytic or sclerotic lesions. Sacroiliac joint degenerative changes a re present. Facet degenerative changes are in the lower lumbar spine. IMPRESSIONS: 1. Reticulosis without acute diverticulitis. 2. Cholelithiasis
--- NOTE | 2020-07-17 18:43 | CT ---
EXAMINATION TYPE: CT lumbar spine wo con DATE OF EXAM: 07/17/2020 COMPARISON: None HISTORY: LLQ pain, lower back pain. CT DLP: 2217.4 mGycm CONTRAST: None TECHNIQUE: CT of the lumbar spine is performed on a spiral scan at 3 mm thick sections. Reconstructed images are performed in the coronal and sagittal planes. FINDINGS: T12-L1: No focal disc herniation or significant disc bulge is evident. No spinal canal stenosis or neural foraminal stenosis is present. L1-L2: No focal disc herniation or significant disc bulge is evident. No spinal canal stenosis or n eural foraminal stenosis is present L2-L3: Broad-based disc bulge has mild anterior thecal sac compression. No AP spinal canal stenosis i s present. Neural foramen are patent. L3-L4: Broad-based disc bulge has moderate anterior thecal sac compression. No AP spinal canal stenos is present. Mild ligament flavum laxity is present. L4-L5: Disc bulge has anterior thecal sac contact. No spinal canal stenosis present. Neural foramen a re patent. L5-S1: Marked facet hypertrophy is present on the left. Based disc bulge is present without significa nt thecal sac compression. No spinal canal stenosis or neural foraminal stenosis is present Vertebral alignment appears normal. Vascular calcification through the aorta is evident IMPRESSION: 1. Disc bulging with mild anterior thecal sac compression. This appears greatest at L3-4. 2. Large facet hypertrophy L5-S1 on the left. 3. No acute osseous abnormality.
[2020-07-17] MEDS ORDERED: NALOXONE 0.4 MG/ML 1 ML VIAL IV PRN (18:53)
[2020-07-17] MEDS ORDERED: MORPHINE SULFATE 4 MG/ML SYRINGE IV PRN (18:53)
[2020-07-17 19:20] LABS: Glucose,Whole Blood 327 mg/dL (75-99)
[2020-07-17] MEDS ORDERED: LORazepam 0.5 MG TAB PO PRN (20:11)
[2020-07-17] MEDS ORDERED: cycloSPORINE 0.05% OPHTH 0.4 ML DROPERETTE BOTH EYES PRN (20:11)
[2020-07-17] MEDS ORDERED: DOCUSATE 100 MG CAP PO PRN (20:11)
[2020-07-17] MEDS: SODIUM CHLORIDE 0.9% 1,000 ML IV SCH (20:42)
[2020-07-17] MEDS ORDERED: INSULIN DETEMIR (LEVEMIR) 100 UNIT/ML SYR SQ SCH (21:00)
[2020-07-17] MEDS: buPROPion 75 MG TAB PO SCH (21:48)
[2020-07-17] MEDS: FERROUS SULFATE 325 MG TAB PO SCH (21:48)
[2020-07-17] MEDS: INSULIN ASPART (NovoLOG) 100 UNIT/ML VIAL SQ SCH (21:48)
[2020-07-17] MEDS: MELATONIN 3 MG TABLET PO SCH (21:48)
[2020-07-17 21:50] LABS: Glucose,Whole Blood 316 mg/dL (75-99)
[2020-07-17] MEDS ORDERED: hydrALAZINE HCL 50 MG TAB PO STA (22:44)
[2020-07-17] MEDS ORDERED: ACETAMINOPHEN TAB 325 MG TAB PO PRN (23:21)
[2020-07-18] MEDS: HYDROmorphone 0.5 MG/0.5 ML SYRINGE IVP PRN ×2 (04:06→15:57)
[2020-07-18] MEDS: LEVOTHYROXINE 88 MCG TAB PO SCH (04:13)
--- NOTE | 2020-07-18 04:26 | HP ---
HISTORY AND PHYSICAL CHIEF COMPLAINT: Back pain and abdominal pain. HISTORY OF PRESENT ILLNESS: This 85-year-old gentleman with a past medical history of multiple medical problems including history of CAD, diabetes, GERD, hypertension, history of pneumonia, sleep apnea, is complaining of severe back pain. The patient is unable to move. The pain is in the back and also radiating to the left lower leg. The patient was admitted earlier this year for Karla UTI. The patient also had pain in the anterior part of the abdomen as well. The pain is radiating down to the foot. The pain progressed to the point that the patient this week is unable to ambulate. The patient took some Tylenol without any relief and the patient came to [facility] and was admitted for further evaluation and treatment. Evaluation showed elevated creatinine, indicating acute renal failure. The CT scan of the abdomen showed only cholelithiasis, which is a previous finding. Otherwise, the CT scan of the spine showed disk bulging and mild anterior thecal space compression L3-4 and large facet hypertrophy L5-S1 on the left. The patient was admitted for further evaluation and treatment. There is no history of fevers, rigors, chills. No history of headache, loss of consciousness, seizures. PAST MEDICAL HISTORY: History of CAD, diabetes, GERD, hypertension, hyperlipidemia, myocardial infarction, anxiety, depression. MEDICATIONS: Prior to admission home medications are Rocaltrol 0.25 mg q.7 days, hydroxyzine, Restasis, Glucotrol, Levemir, K-Dur, iron, Colace, Bentyl, Celexa, Lasix, Proscar, Ativan, Prilosec, melatonin, levothyroxine, Senokot-S, oxybutynin, vitamin E, zinc, Flomax, simvastatin, bupropion, atenolol, aspirin, apixaban, Tylenol. Doses reviewed. ALLERGIES: SHELLFISH. FAMILY HISTORY: History of lung cancer, colorectal cancer. SOCIAL HISTORY: History of smoking. No history of current smoking or alcohol intake. REVIEW OF SYSTEMS: ENT: No diminished vision or hearing. CARDIOVASCULAR: No angina or palpitations. RESPIRATORY: As mentioned earlier. GI: As mentioned earlier. : As mentioned earlier. NERVOUS SYSTEM: As mentioned earlier. ALLERGY/IMMUNOLOGY: No asthma or hayfever. MUSCULOSKELETAL: As mentioned earlier. HEMATOLOGY: No history of anemia. ENDOCRINE: As mentioned earlier. CONSTITUTIONAL: As mentioned earlier. DERMATOLOGY: Negative. RHEUMATOLOGY: Negative. PSYCHIATRY: As mentioned earlier. PHYSICAL EXAMINATION: GENERAL: Alert oriented x3. VITAL SIGNS: Pulse 54, blood pressure 193/82, respiration 18, temperature 98.4, pulse ox 98% on 2 L. HEENT: Conjunctivae normal. Oral mucosa is moist. NECK: No jugular venous distention. No carotid bruits. No lymph node enlargement. RESPIRATORY: Breath sounds diminished at the bases. A few scattered rhonchi and crackles. HEART: S1 and S2, muffled. No S3 or S4. ABDOMEN: Soft, mild diffuse discomfort. No guarding, no rebound, no masses palpable. EXTREMITIES: No edema, no swelling. NERVOUS: Higher functions as mentioned earlier. Moves all four limbs. No focal motor or sensory deficits. LYMPHATICS: No lymph nodes palpable in the neck or axilla. SKIN: No rashes or bruising. EXTREMITIES: Movement of the left leg is painful. Straight leg raising test is also positive. LABS: WBC 8.2, hemoglobin 11, sodium 134, creatinine 2.45, glucose 316. Other labs are reviewed. ASSESSMENT: 1. Acute back pain radiating to the left lower leg with possibly sciatica, L5-S1 with possible severe degenerative joint disease. 2. Failure of outpatient treatment with severe gait dysfunction. 3. Acute renal failure, acute tubular necrosis. 4. Diabetes mellitus type 2 uncontrolled with hyperglycemia. 5. Hyponatremia. 6. Normocytic anemia of chronic disease. 7. History of candidal urinary tract infection previously. 8. History of coronary artery disease. 9. Diabetes mellitus type 2. 10.Gastroesophageal reflux disease. 11.Hypertension. 12.Hyperlipidemia. 13.Myocardial infarction. 14.History of sleep apnea. 15.History of CPAP. 16.History of coronary artery disease with stent. 17.Anxiety, depression, schizophrenia. 18.Remote history of nicotine dependence. 19.FULL CODE. RECOMMENDATIONS AND DISCUSSION: In this 85-year-old gentleman who presented with multiple complex medical issues, at this time I recommend to continue the current medications and symptomatic treatment for the pain. Resume the home medications. Monitor blood sugars closely. Orthopedic evaluation. Otherwise, prognosis is guarded because of multiple complex medical issues and further recommendations to follow. MMODL / IJN: [id number] / [facility]
[2020-07-18] MEDS ORDERED: INSULIN DETEMIR (LEVEMIR) 100 UNIT/ML SYR SQ SCH (07:00)
[2020-07-18] MEDS ORDERED: NON FORMULARY DRUG (Vit C/E/Zn/Coppr/Lutein/Zeaxan [Preservision Areds 2 Softgel] 1 CAP) PO SCH (07:00)
[2020-07-18] MEDS ORDERED: hydrALAZINE HCL 25 MG TAB PO SCH (07:00)
[2020-07-18 07:21] LABS: Glucose,Whole Blood 128 mg/dL (75-99)
[2020-07-18] MEDS: SENNOSIDES-DOCUSATE SODIUM 1 EACH TAB PO SCH ×2 (07:22→15:56)
[2020-07-18] MEDS: APIXABAN 2.5 MG TABLET PO SCH ×2 (07:22→15:55)
[2020-07-18] MEDS: hydrALAZINE HCL 25 MG TAB PO SCH ×3 (07:22→20:33)
[2020-07-18] MEDS: glipiZIDE 10 MG TAB PO SCH ×4 (07:23→20:32)
[2020-07-18] MEDS: PANTOPRAZOLE 40 MG TABLET PO SCH (07:23)
[2020-07-18] MEDS: OXYBUTYNIN CHLORIDE 5 MG TAB PO SCH ×2 (07:23→15:56)
[2020-07-18 07:31] LABS: Basophils # (A) 0.1 k/uL (0-0.2); Basophils % (A) 1 %; Eosinophils # (A) 0.5 k/uL (0-0.7); Eosinophils % (A) 6 %; HGB 11.7 gm/dL (13.0-17.5); Hypochromasia Slight; Lymphocytes # (A) 2.5 k/uL (1.0-4.8); Lymphocytes % (A) 27 %; MCH 30.5 pg (25.0-35.0); MCHC 30.8 g/dL (31.0-37.0); Mean Platelet Volume 7.4; Monocytes # (A) 0.5 k/uL (0-1.0); Monocytes % (A) 5 %; Neutrophils # (A) 5.7 k/uL (1.3-7.7); Neutrophils % (A) 60 %; Platelet Count 194 k/uL (150-450); RBC 3.84 m/uL (4.30-5.90); RDW 12.9 % (11.5-15.5); WBC 9.4 k/uL (3.8-10.6)
[2020-07-18] MEDS: INSULIN ASPART (NovoLOG) 100 UNIT/ML VIAL SQ SCH ×3 (07:37→18:09)
[2020-07-18 07:54] LABS: Calcium 8.9 mg/dL (8.4-10.2); Potassium 3.8 mmol/L (3.5-5.1)
[2020-07-18] MEDS: FINASTERIDE 5 MG TAB PO SCH (09:06)
[2020-07-18] MEDS: POTASSIUM CHLORIDE ER 10 MEQ TAB.ER.PRT PO SCH (09:06)
[2020-07-18] MEDS: DICYCLOMINE 10 MG CAP PO SCH ×3 (09:06→22:01)
[2020-07-18] MEDS: atenoloL 25 MG TAB PO SCH (09:06)
[2020-07-18] MEDS: SODIUM CHLORIDE 0.9% 1,000 ML IV SCH ×2 (09:08→21:20)
--- NOTE | 2020-07-18 09:52 | P.CNOR ---
History of Present Illness - [facility] Consult date: 07/18/20 Consult reason: low back pain History of present illness: The patient is a pleasant 85-year-old male with a past medical history including coronary artery disease, diabetes mellitus, hyperlipidemia, hypertension, [place] and sleep apnea who presented to the emergency department yesterday with left sided low back pain that radiates down his left leg. He states that he could not get off the toilet approximately 2 weeks ago and sat there for 3 hours before he could get up. The back pain started then and has progressively worsened over the last 2 weeks. The pain started radiating down his left leg recently. The pain became to unbearable and he came to the emergency department for further evaluation. A CT of the lumbar spine was completed in the ER and revealed multilevel disc bulging, worse at L3-L4. The patient was also complaining of urinary incontinence but he states this started when he was in [facility] at the end of last year and has not worsened since the back pain started. He does have to wear a brief due to the incontinence. No bowel issues. The patient does use a walker at home for ambulation. Review of Systems Constitutional: Denies chills, Denies fever Cardiovascular: Denies chest pain, Denies shortness of breath Respiratory: Denies cough Gastrointestinal: Denies abdominal pain, Denies diarrhea, Denies nausea, Denies vomiting Musculoskeletal: Reports low back pain Past Medical History Past Medical History: Coronary Artery Disease (CAD), Cancer, Diabetes Mellitus, GERD/Reflux, Hyperlipidemia, Hypertension, Myocardial Infarction ([place]), Pneumonia, Prostate Disorder, Sleep Apnea/CPAP/BIPAP, Thyroid Disorder Additional Past Medical History / Comment(s): no CPAP used, hiatal hernia, hx thyroid cancer, macular degeneration danielle eyes Last Myocardial Infarction Date:: 1999 History of Any Multi-Drug Resistant Organisms: None Reported Past Surgical History: Heart Catheterization With Stent, Joint Replacement Additional Past Surgical History / Comment(s): left knee replacement, danielle cataracts, thyroidectomy Past Anesthesia/Blood Transfusion Reactions: No Reported Reaction Additional Past Anesthesia/Blood Transfusion Reaction / Comm: clausterphobia - "uses open mri" Date of Last Stent Placement:: 1999 Past Psychological History: Anxiety, Depression, Schizophrenia Additional Psychological History / Comment(s): Patient lives at home and helps with care. He uses a walker at home and he uses grab bars. Pt also has been on oxygen since getting to rehab, he normally wears 2 L of oxygen at home. He no longer drives, family can take him to appts. Smoking Status: Former smoker Past Alcohol Use History: None Reported Additional Past Alcohol Use History / Comment(s): Started smoking 1952 and quit 1993 Past Drug Use History: None Reported - Past Family History Father Family Medical History: Cancer Additional Family Medical History / Comment(s): Father had lung cancer and colorectal cancer. He smoked as a younger man. Mother Family Medical History: Cancer Additional Family Medical History / Comment(s): Mother had lung cancer. She was a lifelong smoker Medications and Allergies Home Medications Medication Instructions Recorded Confirmed Type Citalopram Hydrobromide 40 mg PO DAILY@1530 09/29/14 07/17/20 History [Citalopram HBr] Levothyroxine Sodium [Synthroid] 88 mcg PO QAM 09/29/14 07/17/20 History Omeprazole [PriLOSEC] 20 mg PO BID@0700,1530 09/29/14 07/17/20 History Tamsulosin HCl [Flomax] 0.4 mg PO HS@199911/07/18 07/17/20 History Vit C/E/Zn/Coppr/Lutein/Zeaxan 1 cap PO BID@0700,1530 11/07/18 07/17/20 History [Preservision Areds 2 Softgel] Acetaminophen [Tylenol] 650 mg PO Q4H PRN 11/26/18 07/17/20 History Melatonin 3 mg PO HS 11/26/18 07/17/20 History buPROPion [Wellbutrin] 150 mg PO HS 11/26/18 07/17/20 History Kelly-[place] 30 ml PO Q6H PRN 12/15/18 07/17/20 History Insulin Detemir (Levemir) [Levemir] 10 unit SQ QAM 12/15/18 07/17/20 History cycloSPORINE [Restasis] 1 drop BOTH EYES BID PRN 12/15/18 07/17/20 History Dicyclomine [Bentyl] 10 mg PO TID #0 cap 12/25/18 07/17/20 Rx Apixaban [Eliquis] 2.5 mg PO BID@0700,1530 07/17/20 07/17/20 History Aspirin 325 mg PO DAILY@1530 07/17/20 07/17/20 History Calcitriol [Rocaltrol] 0.25 mcg PO Q7D 07/17/20 07/17/20 History Docusate [Colace] 100 mg PO DAILY PRN 07/17/20 07/17/20 History Ferrous Sulfate [Iron] 325 mg PO HS 07/17/20 07/17/20 History Finasteride [Proscar] 5 mg PO QAM 07/17/20 07/17/20 History Furosemide [Lasix] 40 mg PO QAM 07/17/20 07/17/20 History Kelly-Pectate Suspension 262mg/15ml 262 mg PO Q4H PRN 07/17/20 07/17/20 History Insulin Detemir (Levemir) [Levemir] 25 units SQ HS 07/17/20 07/17/20 History LORazepam [Ativan] 0.5 mg PO HS PRN 07/17/20 07/17/20 History Oxybutynin Chloride [Ditropan] 2.5 mg PO BID@0700,1530 07/17/20 07/17/20 History Potassium Chloride ER [K-Dur 10] 10 meq PO QAM 07/17/20 07/17/20 History Sennosides-Docusate Sodium 1 each PO BID@0700,1530 07/17/20 07/17/20 History [Senokot-S] Simvastatin [Zocor] 40 mg PO HS@199907/17/20 07/17/20 History atenoloL [Tenormin] 25 mg PO QAM 07/17/20 07/17/20 History glipiZIDE [Glucotrol] 10 mg PO ACHS 07/17/20 07/17/20 History hydrALAZINE HCL [Apresoline] 25 mg PO TID@0700,1530,199907/17/20 07/17/20 History hydrOXYzine pamoate [hydrOXYzine 25 mg PO HS 07/17/20 07/17/20 History PAMOATE] Allergies Allergy/AdvReac Type Severity Reaction Status Date / Time shellfish derived [Shellfish] AdvReac Rash/Hives Verified 07/17/20 22:32 Physical Examination The patient is an 85-year-old male who is in no acute distress. He is alert and oriented 3. Abdomen is soft and nontender. Chest has good excursion with deep inspiration. There is no pain to palpation of lumbar spine with minimal paraspinal spasm bilaterally. He is able to lift his legs off the bed but it is weak. Straight leg test is positive on the left. He has weakened dorsiflexion and plantar flexion (2/5 bilaterally) and EHL function is 3/5 on the left and 2/5 on the right. Bilateral calves are soft and nontender. Neurological and circulatory status is intact. Results - Labs Labs: Abnormal Lab Results - Last 24 Hours (Table) 07/17/20 07/17/20 07/17/20 Range/Units 16:35 16:35 16:35 RBC 3.79 L (4.30-5.90) m/uL Hgb 11.6 L (13.0-17.5) gm/dL Hct 36.9 L (39.0-53.0) % MCHC (31.0-37.0) g/dL Sodium 134 L (137-145) mmol/L Chloride (98-107) mmol/L Carbon Dioxide 19 L (22-30) mmol/L BUN 55 H (9-20) mg/dL Creatinine 2.45 H (0.66-1.25) mg/dL Glucose 424 H (74-99) mg/dL POC Glucose (mg/dL) (75-99) mg/dL Plasma Lactic Acid Qasim 3.1 H* (0.7-2.0) mmol/L AST 15 L (17-59) U/L Alkaline Phosphatase 153 H (38-126) U/L Total Protein 5.6 L (6.3-8.2) g/dL Albumin 3.2 L (3.5-5.0) g/dL Urine Protein (Negative) Urine Glucose (UA) (Negative) 07/17/20 07/17/20 07/17/20 Range/Units 16:57 19:18 21:46 RBC (4.30-5.90) m/uL Hgb (13.0-17.5) gm/dL Hct (39.0-53.0) % MCHC (31.0-37.0) g/dL Sodium (137-145) mmol/L Chloride (98-107) mmol/L Carbon Dioxide (22-30) mmol/L BUN (9-20) mg/dL Creatinine (0.66-1.25) mg/dL Glucose (74-99) mg/dL POC Glucose (mg/dL) 327 H 316 H (75-99) mg/dL Plasma Lactic Acid Qasim (0.7-2.0) mmol/L AST (17-59) U/L Alkaline Phosphatase (38-126) U/L Total Protein (6.3-8.2) g/dL Albumin (3.5-5.0) g/dL Urine Protein Trace H (Negative) Urine Glucose (UA) 4+ H (Negative) 07/18/20 07/18/20 07/18/20 Range/Units 07:02 07:02 07:15 RBC 3.84 L (4.30-5.90) m/uL Hgb 11.7 L (13.0-17.5) gm/dL Hct 38.0 L (39.0-53.0) % MCHC 30.8 L (31.0-37.0) g/dL Sodium (137-145) mmol/L Chloride 113 H (98-107) mmol/L Carbon Dioxide 21 L (22-30) mmol/L BUN 55 H (9-20) mg/dL Creatinine 2.31 H (0.66-1.25) mg/dL Glucose 117 H (74-99) mg/dL POC Glucose (mg/dL) 128 H (75-99) mg/dL Plasma Lactic Acid Qasim (0.7-2.0) mmol/L AST (17-59) U/L Alkaline Phosphatase (38-126) U/L Total Protein (6.3-8.2) g/dL Albumin (3.5-5.0) g/dL Urine Protein (Negative) Urine Glucose (UA) (Negative) H & H 07/17/20 07/18/20 Range/Units 16:35 07:02 Hgb 11.6 L 11.7 L (13.0-17.5) gm/dL Hct 36.9 L 38.0 L (39.0-53.0) % Result Diagrams: 07/18/20 07:02 07/18/20 07:02 - Diagnostic results CT Scan - lumbar: image reviewed (CT of the lumbar spine dated 07/17/2020 reveals L2 to L3 broad-based disc bulge, L3 to L4 broad-based disc bulge with moderate anterior thecal sac compression, L4 to L5 disc bulge, and L5 to S1 marked facet hypertrophy on the left with based disc bulge) Assessment and Plan (1) Back pain Current Visit: Yes Status: Acute Code(s): M54.9 - DORSALGIA, UNSPECIFIED SNOMED Code(s): 614140241 (2) Incomplete bladder emptying Current Visit: Yes Status: Acute Code(s): R33.9 - RETENTION OF URINE, UNSPECIFIED SNOMED Code(s): 097818773 (3) Lumbar radiculopathy Current Visit: Yes Status: Acute Code(s): M54.16 - RADICULOPATHY, LUMBAR REGION SNOMED Code(s): 049966097 Plan: The clinical and CT findings were discussed with the patient. The case was discussed at length with Dr. Angeles. No emergent surgical intervention is planned at this time. We are recommending Solu-Medrol 60 mg every 12 hours and a consult pain management for evaluation and possible DULCE MARIA. We will continue to follow patient closely and make further recommendations as needed.
[2020-07-18] MEDS: methylPREDNISolone SOD SUCCI 125 MG/2 ML VIAL IV SCH ×2 (10:57→20:35)
[2020-07-18 11:45] LABS: Glucose,Whole Blood 164 mg/dL (75-99)
[2020-07-18] MEDS: CITALOPRAM HYDROBROMIDE 20 MG TAB PO SCH (15:55)
[2020-07-18] MEDS: ASPIRIN 325 MG TAB PO SCH (15:55)
--- NOTE | 2020-07-18 16:59 | PN ---
PROGRESS NOTE DATE OF SERVICE: 07/18/2020 INTERVAL HISTORY: This is an 85-year-old gentleman who was admitted with severe back pain. Had probably sciatica, L5-S1 with positive severe DJD. The patient is being closely monitored. Lumbar spine CT scan has been done. The patient has also had orthopedic surgical evaluation. The patient is still on pain medications and disk bulges noted worse at L3- 4. Dr. Angeles is following the patient closely. PAST MEDICAL HISTORY: Reviewed. REVIEW OF SYSTEMS: CARDIOVASCULAR: No angina or palpitations. RESPIRATORY: As mentioned earlier. GI: As mentioned earlier. : No dysuria. NERVOUS SYSTEM: No numbness or weakness. CURRENT MEDICATIONS: Reviewed and include Tylenol p.r.n., Eliquis 2.5 mg b.i.d., Aspirin 325 mg, Tenormin 25 mg, Lipitor 20 mg, Wellbutrin, Rocaltrol, Celexa, Restasis, Bentyl, Colace, iron sulfate, Proscar, Glucotrol, apresoline, Dilaudid, NovoLog, Levemir, Synthroid, Ativan, Melatonin, Solu-Medrol, Narcan, Ditropan, K-Dur, Senokot-S, Flomax. PHYSICAL EXAM: GENERAL: Patient is alert, oriented x3. VITAL SIGNS: Pulse is 47, blood pressure 143/54, respiration 18, temperature 97.7, pulse ox 97% on room air. HEENT: Conjunctivae normal. NECK: No jugular venous distention. RESPIRATORY: Breath sounds diminished at the bases. A few scattered rhonchi and crackles. HEART: S1 and S2, muffled. ABDOMEN: Soft, nontender, no masses palpable. EXTREMITIES: Movement of the left leg is still painful but slightly improved compared to yesterday. Straight leg raising test is positive. LAB STUDIES: WBC 9.3, hemoglobin 11.7, sodium 140, potassium 3.8. Creatinine is 2.31. Yesterday's value was 2.45. ASSESSMENT: 1. Severe back pain, acute back pain radiating to the left lower leg, possibly sciatica, L5-S1 with possible severe degenerative joint disease. 2. L3-[address] scan of the back. 3. Failure of outpatient treatment, severe gait dysfunction. 4. Acute renal failure with acute tubular necrosis with prerenal acute tubular necrosis. 5. Diabetes mellitus type 2 uncontrolled with hyperglycemia. 6. Hyponatremia. 7. Normocytic anemia of chronic disease. 8. History of candidal urinary tract infection previously. 9. History of coronary artery disease. 10.Diabetes mellitus type 2. 11.History of gastroesophageal reflux disease. 12.Hypertension. 13.Hyperlipidemia. 14.History of myocardial infarction. 15.History of sleep apnea. 16.History of CPAP. 17.History of coronary artery disease with stent. 18.History of anxiety, depression, schizophrenia. 19.Remote history of nicotine dependence. 20.FULL CODE. RECOMMENDATIONS AND DISCUSSION: I recommend to continue current medications, continue to monitor, symptomatic treatment. Otherwise at this time, repeat creatinine. Continue with IV steroids. Monitor blood sugars closely. Closely follow with Orthopedic Surgery. PTOT evaluation. Guarded prognosis because of multiple complex medical issues. Further recommendations to follow. Please consider ECF rehab, depending upon the progression of the patient. MMODL / IJN: [id number] /
[2020-07-18 17:08] LABS: Glucose,Whole Blood 315 mg/dL (75-99)
[2020-07-18] MEDS ORDERED: INSULIN REGULAR BOLUS (FROM DRIP BAG) IV ONE (17:10)
[2020-07-18] MEDS: INSULIN REGULAR 100 UNIT in SODIUM CHLORIDE 0.9% 100 ML IV SCH (18:24)
[2020-07-18 19:12] LABS: Glucose,Whole Blood 336 mg/dL (75-99)
[2020-07-18 19:44] LABS: Glucose,Whole Blood 300 mg/dL (75-99)
[2020-07-18 20:18] LABS: Glucose,Whole Blood 280 mg/dL (75-99)
[2020-07-18] MEDS: buPROPion 75 MG TAB PO SCH (20:33)
[2020-07-18] MEDS: ATORVASTATIN 20 MG TAB PO SCH (20:33)
[2020-07-18] MEDS: TAMSULOSIN 0.4 MG CAP.ER.24H PO SCH (20:33)
[2020-07-18] MEDS: FERROUS SULFATE 325 MG TAB PO SCH (20:34)
[2020-07-18] MEDS: MELATONIN 3 MG TABLET PO SCH (20:34)
[2020-07-18] MEDS: hydrOXYzine pamoate 25 MG CAP PO SCH (20:34)
[2020-07-18 20:39] LABS: Glucose,Whole Blood 270 mg/dL (75-99)
[2020-07-18 21:12] LABS: Glucose,Whole Blood 231 mg/dL (75-99)
[2020-07-18 23:21] LABS: Glucose,Whole Blood 151 mg/dL (75-99)
[2020-07-19 01:09] LABS: Glucose,Whole Blood 107 mg/dL (75-99)
--- NOTE | 2020-07-19 02:19 | CONS ---
CONSULTATION REASON FOR CONSULT: Renal failure. HISTORY OF PRESENT ILLNESS: Patient is an 85-year-old male who was admitted to the hospital with history of severe back pain. The patient states that he was not able to get up from the commode after having had a bowel movement. He kept sitting for about 3 hours until his arrived. He admitted to decreased oral intake for the past few days. The patient does have a history of chronic kidney disease with baseline creatinine around 1.8 to 1.9 mg/dL. His serum creatinine this admission peaked to about 2.45. Today it is down to 2.3. The patient is maintained on IV fluids. Blood pressure has not been significantly low, in fact it was high on admission. 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 PAST SURGICAL HISTORY: Left knee arthroplasty, cataract surgery, thyroidectomy, cardiac catheterization, coronary stent placement. SOCIAL HISTORY: Negative for smoking, drug abuse or alcohol abuse. MEDICATIONS: Medications prior to admission included Synthroid, citalopram, multivitamins, Prilosec vitamin B12, Zocor, Flomax Tylenol, Kaopectate, Claritin, Wellbutrin, insulin, Norvasc, Restasis, Eliquis, Bentyl, Aranesp, Lasix, Ativan, Tenormin, Risperdal, Ditropan. ALLERGIES: None. REVIEW OF SYSTEMS: As per HPI. Other systems negative. PHYSICAL EXAMINATION: Patient is comfortable, awake. He is not in any acute distress, alert, oriented x3. Blood pressure 143/54, heart rate 47 per minute. He is afebrile. EXAMINATION OF THE HEART: S1, S2. EXAMINATION OF THE LUNGS: Bilateral breath sounds are heard. ABDOMEN: Soft, nontender. Examination of lower extremities shows no significant edema. 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 LABS: Labs show sodium of 140, potassium 3.8, chloride 113, CO2 is 21, BUN 55, creatinine 2.3, hemoglobin 11.7 g/dL. ASSESSMENT: 1. Acute kidney injury, most likely prerenal currently slightly improved with IV hydration. 2. Chronic kidney disease stage 3B to 4 with baseline creatinine about 1.8 to 1.9 mg/dL secondary to nephrosclerosis. 3. History of coronary artery disease, status post coronary stents. 4. History of chronic back pain. 5. Acute back pain radiating to left lower leg, possibly sciatica with history of severe osteoarthritis. PLAN: May continue with IV fluids, encourage increased oral intake. Monitor heart rate as heart rate is on the lower side. Patient is maintained on Tenormin. Thank you for this consultation. Will continue to follow the patient with you during his hospitalization. MMODL / IJN: [id number] /
[2020-07-19 02:28] LABS: Glucose,Whole Blood 125 mg/dL (75-99)
[2020-07-19 03:06] LABS: Glucose,Whole Blood 175 mg/dL (75-99)
[2020-07-19 05:01] LABS: Glucose,Whole Blood 177 mg/dL (75-99)
[2020-07-19] MEDS: LEVOTHYROXINE 88 MCG TAB PO SCH (05:37)
[2020-07-19 07:05] LABS: Glucose,Whole Blood 141 mg/dL (75-99)
[2020-07-19 07:37] LABS: Basophils % (A) 0 %; Eosinophils % (A) 0 %; HCT 36.9 % (39.0-53.0); HGB 11.4 gm/dL (13.0-17.5); Hypochromasia Slight; Lymphocytes # (A) 1.2 k/uL (1.0-4.8); Lymphocytes % (A) 9 %; MCH 30.5 pg (25.0-35.0); MCV 98.5 fL (80.0-100.0); Mean Platelet Volume 7.6; Monocytes # (A) 0.4 k/uL (0-1.0); Monocytes % (A) 3 %; Neutrophils # (A) 12.4 k/uL (1.3-7.7); Neutrophils % (A) 88 %; Platelet Count 204 k/uL (150-450); RBC 3.74 m/uL (4.30-5.90); RDW 12.9 % (11.5-15.5); WBC 14.2 k/uL (3.8-10.6)
[2020-07-19 07:57] LABS: Calcium 8.7 mg/dL (8.4-10.2); Potassium 4.8 mmol/L (3.5-5.1)
[2020-07-19] MEDS: methylPREDNISolone SOD SUCCI 125 MG/2 ML VIAL IV SCH ×2 (09:34→17:50)
[2020-07-19] MEDS: POTASSIUM CHLORIDE ER 10 MEQ TAB.ER.PRT PO SCH (09:34)
[2020-07-19] MEDS: hydrALAZINE HCL 25 MG TAB PO SCH ×3 (09:34→21:08)
[2020-07-19] MEDS: atenoloL 25 MG TAB PO SCH (09:35)
[2020-07-19] MEDS: CITALOPRAM HYDROBROMIDE 20 MG TAB PO SCH (09:35)
[2020-07-19] MEDS: APIXABAN 2.5 MG TABLET PO SCH ×2 (09:38→17:49)
[2020-07-19] MEDS: DICYCLOMINE 10 MG CAP PO SCH ×3 (09:38→21:09)
[2020-07-19] MEDS: FINASTERIDE 5 MG TAB PO SCH (09:38)
[2020-07-19] MEDS: SENNOSIDES-DOCUSATE SODIUM 1 EACH TAB PO SCH ×2 (09:38→17:49)
[2020-07-19] MEDS: PANTOPRAZOLE 40 MG TABLET PO SCH (09:38)
[2020-07-19] MEDS: INSULIN ASPART (NovoLOG) 100 UNIT/ML VIAL SQ SCH ×3 (09:39→17:50)
[2020-07-19] MEDS: SODIUM CHLORIDE 0.9% 1,000 ML IV SCH (09:39)
[2020-07-19] MEDS: glipiZIDE 10 MG TAB PO SCH ×3 (09:40→21:11)
[2020-07-19] MEDS: HYDROmorphone 0.5 MG/0.5 ML SYRINGE IVP PRN ×3 (09:41→19:20)
--- NOTE | 2020-07-19 10:04 | P.PN ---
Progress Note - Text Progress Note Date: 07/19/20 Orthopedic spine: History of present illness: Patient is a pleasant 85-year-old male who is seen and examined bedside for follow-up evaluation of his intractable low back and left lower extremity radiculopathy. He states his pain has been somewhat better controlled since his admission to the hospital with Dilaudid IV and Solu-Medrol. He does continue have significant left lower extremity radicular pain and low back pain. This pain is debilitating for him. He has not been out of bed. He currently has a Lamas catheter intact. He states he has pain that radiates from the lumbar spine towards the left hip and buttock and down the posterior thigh and calf. He does have some weakness with dorsiflexion on the left. He states his symptoms have been ongoing over the past 3 weeks after he states he went to the restroom to have a bowel movement at home and was unable to get off the toilet. His was grocery shopping. He states he sat on the toilet for approximately 3 hours. His symptoms have been exacerbated since that time. He denies specific injury. He does have some radicular pain down the right lower extremity as well but to a lesser degree. He does admit to history of urinary incontinence. He does not feel specific change in his urinary status but states his Lamas catheter is currently intact due to his inability to get out of bed due to pain. He denies any saddle anesthesia. He's had CT imaging of his lumbar spine during his admission. He denies having a pacemaker. He has not recently had a lumbar MRI. Patient is been seen and examined by medicine for his other medical diagnoses including diabetes mellitus type 2 uncontrolled with hyperglycemia, hyponatremia, and acute renal failure with acute tubular necrosis. Patient also has a significant medical history which includes coronary artery disease, hypertension, hyperlipidemia, myocardial infarction, and candidal urinary tract infection. Patient is currently waiting for consultation with pain management. Physical exam: Patient is awake, alert, and oriented 3 Vital signs stable Good chest excursion with deep inspiration and expiration Abdomen soft nontender Examination of lumbar spine reveals skin is intact with no abrasions, lacerations, or bruises; no erythema, purulence or signs of infection Patient has significant difficulty with rolling over in bed due to his pain No specific pain with palpation along the lumbar spine Dorsiflexion, plantarflexion, and extensor hallucis longus positive sustained on the left Left lower extremity strength is 3+/5 including dorsiflexion Patient has difficulty lifting his left lower extremity off the bed Significant pain with active range of motion of the left lower extremity most specifically with hip flexion Evidence of a well-healed incision over the left anterior knee No lower extremity hyperreflexia bilaterally No signs or symptoms of DVT; no calf pain No pain with internal and external rotation of the hips bilaterally Neurovascularly intact Pertinent studies: CT lumbar spine taken on 07/17/2020: L2-3 broad-based disc bulge; L3-4 broad disc bulge; L4-5 disc bulge; L5-S1 marked facet hypertrophy on the left and disc bulge; no acute osseous abnormality; no obvious evidence of significant canal stenosis; no evidence of vertebral body compression fracture Assessment: Intractable low back pain Left lower extremity radiculopathy Left lower extremity weakness L5-S1 facet hypertrophy Multiple lumbar disc bulging most significant at L3-4 Diabetes mellitus type 2 uncontrolled with hyperglycemia Hyponatremia Acute renal failure with acute tubular necrosis History of coronary artery disease Hypertension Hyperlipidemia History of myocardial infarction History of candidal urinary tract infection Plan: 1. Patient continues to experience intractable back pain and left lower extremity radiculopathy that has been ongoing over the past couple weeks after a prolonged episode of sitting on a toilet. He has been receiving IV Dilaudid and Solu-Medrol during his admission to the hospital with minimal overall improvement of the symptoms. He has been bedridden and unable to ambulate on the left lower extremity due to his pain. He currently has a Lamas catheter intact as he states his pain is severe and he is unable to mobilize out of the bed. He does have a history of urinary incontinence and states he does not feel specific change in his urinary status other than the inability to get out of bed to urinate. He has had a CT imaging of the lumbar spine performed. Patient denies having a pacemaker. Given his intractable low back pain and left lower extremity radiculopathy along with his left lower extremity weakness and degenerative changes found on CT imaging, we'll plan to obtain an MRI of the lumbar spine without contrast for further evaluation. Following the completion of this MRI we'll review this imaging and discuss further treatment options proceeding forward. 2. Continue pain control medications as prescribed including IV Dilaudid and Solu-Medrol 3. Patient will continue be seen and examined by medicine for his other significant medical diagnoses 4. Patient currently wearing for consultation with pain management
[2020-07-19 10:05] LABS: Glucose,Whole Blood 170 mg/dL (75-99)
[2020-07-19] MEDS: OXYBUTYNIN CHLORIDE 5 MG TAB PO SCH ×2 (10:09→17:49)
[2020-07-19] MEDS: INSULIN REGULAR 100 UNIT in SODIUM CHLORIDE 0.9% 100 ML IV SCH (10:29)
[2020-07-19 11:44] LABS: Glucose,Whole Blood 204 mg/dL (75-99)
[2020-07-19 12:05] LABS: Glucose,Whole Blood 173 mg/dL (75-99)
[2020-07-19 13:55] LABS: Glucose,Whole Blood 144 mg/dL (75-99)
[2020-07-19 15:13] LABS: Glucose,Whole Blood 190 mg/dL (75-99)
[2020-07-19] MEDS ORDERED: DIAZEPAM 5 MG/ML 2 ML INJ IVP STA (15:15)
--- NOTE | 2020-07-19 15:29 | P.PAINCN ---
History of Present Illness - Reason for Consult Consult date: 07/19/20 - History of Present Illness This is 85 years old male with a three-month history of severe low back pain with radiation to the left lower extremity, without any initiating event but he reported that the pain intensity increased over the last few days, became intense severe , localized in the left side of the low back with radiation to the left leg, also patient complaining of urinary incontinence, he denies any bowel movement changes, patient is not able to ambulate secondary to intensity of the pain, Past Medical History Past Medical History: Coronary Artery Disease (CAD), Cancer, Diabetes Mellitus, GERD/Reflux, Hyperlipidemia, Hypertension, Myocardial Infarction ([place]), Pneu monia, Prostate Disorder, Sleep Apnea/CPAP/BIPAP, Thyroid Disorder Additional Past Medical History / Comment(s): no CPAP used, hiatal hernia, hx thyroid cancer, macular degeneration danielle eyes Last Myocardial Infarction Date:: 1999 History of Any Multi-Drug Resistant Organisms: None Reported Past Surgical History: Heart Catheterization With Stent, Joint Replacement Additional Past Surgical History / Comment(s): left knee replacement, danielle cataracts, thyroidectomy Past Anesthesia/Blood Transfusion Reactions: No Reported Reaction Additional Past Anesthesia/Blood Transfusion Reaction / Comm: clausterphobia - "uses open mri" Date of Last Stent Placement:: 1999 Past Psychological History: Anxiety, Depression, Schizophrenia Additional Psychological History / Comment(s): Patient lives at home and helps with care. He uses a walker at home and he uses grab bars. Pt also has been on oxygen since getting to rehab, he normally wears 2 L of oxygen at home. He no longer drives, family can take him to appts. Smoking Status: Former smoker Past Alcohol Use History: None Reported Additional Past Alcohol Use History / Comment(s): Started smoking 1952 and quit 1993 Past Drug Use History: None Reported - Past Family History Father Family Medical History: Cancer Additional Family Medical History / Comment(s): Father had lung cancer and colorectal cancer. He smoked as a younger man. Mother Family Medical History: Cancer Additional Family Medical History / Comment(s): Mother had lung cancer. She was a lifelong smoker Medications and Allergies Home Medications Medication Instructions Recorded Confirmed Type Citalopram Hydrobromide 40 mg PO DAILY@1530 09/29/14 07/17/20 History [Citalopram HBr] Levothyroxine Sodium [Synthroid] 88 mcg PO QAM 09/29/14 07/17/20 History Omeprazole [PriLOSEC] 20 mg PO BID@0700,1530 09/29/14 07/17/20 History Tamsulosin HCl [Flomax] 0.4 mg PO HS@199911/07/18 07/17/20 History Vit C/E/Zn/Coppr/Lutein/Zeaxan 1 cap PO BID@0700,1530 11/07/18 07/17/20 History [Preservision Areds 2 Softgel] Acetaminophen [Tylenol] 650 mg PO Q4H PRN 11/26/18 07/17/20 History Melatonin 3 mg PO HS 11/26/18 07/17/20 History buPROPion [Wellbutrin] 150 mg PO HS 11/26/18 07/17/20 History Kelly-Lanta 30 ml PO Q6H PRN 12/15/18 07/17/20 History Insulin Detemir (Levemir) [Levemir] 10 unit SQ QAM 12/15/18 07/17/20 History cycloSPORINE [Restasis] 1 drop BOTH EYES BID PRN 12/15/18 07/17/20 History Dicyclomine [Bentyl] 10 mg PO TID #0 cap 12/25/18 07/17/20 Rx Apixaban [Eliquis] 2.5 mg PO BID@0700,1530 07/17/20 07/17/20 History Aspirin 325 mg PO DAILY@1530 07/17/20 07/17/20 History Calcitriol [Rocaltrol] 0.25 mcg PO Q7D 07/17/20 07/17/20 History Docusate [Colace] 100 mg PO DAILY PRN 07/17/20 07/17/20 History Ferrous Sulfate [Iron] 325 mg PO HS 07/17/20 07/17/20 History Finasteride [Proscar] 5 mg PO QAM 07/17/20 07/17/20 History Furosemide [Lasix] 40 mg PO QAM 07/17/20 07/17/20 History Kelly-Pectate Suspension 262mg/15ml 262 mg PO Q4H PRN 07/17/20 07/17/20 History Insulin Detemir (Levemir) [Levemir] 25 units SQ HS 07/17/20 07/17/20 History LORazepam [Ativan] 0.5 mg PO HS PRN 07/17/20 07/17/20 History Oxybutynin Chloride [Ditropan] 2.5 mg PO BID@0700,1530 07/17/20 07/17/20 History Potassium Chloride ER [K-Dur 10] 10 meq PO QAM 07/17/20 07/17/20 History Sennosides-Docusate Sodium 1 each PO BID@0700,1530 07/17/20 07/17/20 History [Senokot-S] Simvastatin [Zocor] 40 mg PO HS@199907/17/20 07/17/20 History atenoloL [Tenormin] 25 mg PO QAM 07/17/20 07/17/20 History glipiZIDE [Glucotrol] 10 mg PO ACHS 07/17/20 07/17/20 History hydrALAZINE HCL [Apresoline] 25 mg PO TID@0700,1530,199907/17/20 07/17/20 History hydrOXYzine pamoate [hydrOXYzine 25 mg PO HS 07/17/20 07/17/20 History PAMOATE] Allergies Allergy/AdvReac Type Severity Reaction Status Date / Time shellfish derived [Shellfish] AdvReac Rash/Hives Verified 07/17/20 22:32 Physical Exam Vitals: Vital Signs Temp Pulse Pulse Resp BP Pulse Ox 07/19/20 11:20 98.1 F 48 L 18 157/68 98 07/19/20 05:22 98.1 F 50 L 18 132/80 98 07/18/20 21:00 97.8 F 50 L 20 144/57 98 Intake and Output 07/19/20 07/19/20 07/19/20 06:59 14:59 22:59 Intake Total 23.517 23.966 2.7 Output Total 800 Balance -776.483 23.966 2.7 Intake: Intake, IV Titration 23.517 23.966 2.7 Amount Insulin Regular 100 unit 23.517 23.966 2.7 In Sodium Chloride 0.9% 100 ml @ Titrate IV .Q0M [facility] Rx#:[id number] Output: Urine 800 Other: Voiding Method Diaper Diaper Incontinent Incontinent Indwelling Catheter Indwelling Catheter Physical Examinations : -Constitutiona : Cooperative , not in acute distress . -HEENT : nech : supple , no Lymphadenopathy , normal thyroid size . : eyes : no ptosis , no icterus, no photophobia . : ENT : normal of hearing , normal oropharynx , no Thrush . - Respiratory : Chest clear to auscultations Bilaterally , no wheez ing , no Rhonchi . - Cardiovascula : regular rate and rhythem , S1 , S2 , no S3 , no S4. - Gastrointestina : abdomen soft no tenderness , bowel sounds , no organomegally . - Genitourinary : Defferred . - neurologic : Cranial nerve II to XII intact , no focal neurological deffecit . -psychatric : alert , oriented X 3 , appropriate affect , intact judgment and insight . -Lymphatic : no Lymphadenopathy . - musculoskeltal : Lumber spine moter stegnth lower extremities ,thigh and legs 3-4/5 Right side , 3/5 Left side deep tendon reflexes : decreased Knee Jerk , decreased ankle Jerk lumber facet Loading Test =positive Ri ght , positive Left Range of motion of the lumbar spine F lexion 30 degrees, extension 10 degrees strait leg raising test = positive at degree Fabere test= positive Right , and positive LT . Sever tenderness over the Sacroiliac joint on the Right , and Left sides Gaenslen test= positive right ,and positive left . Seated flexion test= positive right ,and positive Left . Generalized tenderness over the lumbar paraspinal muscles Results CBC & Chem 7: 07/19/20 07:12 07/19/20 07:12 Labs: Abnormal Lab Results - Last 24 Hours (Table) 07/18/20 07/18/20 07/18/20 Range/Units 17:07 19:09 19:43 WBC (3.8-10.6) k/uL RBC (4.30-5.90) m/uL Hgb (13.0-17.5) gm/dL Hct (39.0-53.0) % Neutrophils # (1.3-7.7) k/uL ESR (0-15) mm/hr Chloride (98-107) mmol/L BUN (9-20) mg/dL Creatinine (0.66-1.25) mg/dL Glucose (74-99) mg/dL POC Glucose (mg/dL) 315 H 336 H 300 H (75-99) mg/dL C-Reactive Protein (<10.0) mg/L 07/18/20 07/18/20 07/18/20 Range/Units 20:06 20:27 21:03 WBC (3.8-10.6) k/uL RBC (4.30-5.90) m/uL Hgb (13.0-17.5) gm/dL Hct (39.0-53.0) % Neutrophils # (1.3-7.7) k/uL ESR (0-15) mm/hr Chloride (98-107) mmol/L BUN (9-20) mg/dL Creatinine (0.66-1.25) mg/dL Glucose (74-99) mg/dL POC Glucose (mg/dL) 280 H 270 H 231 H (75-99) mg/dL C-Reactive Protein (<10.0) mg/L 07/18/20 07/19/20 07/19/20 Range/Units 23:01 00:58 02:05 WBC (3.8-10.6) k/uL RBC (4.30-5.90) m/uL Hgb (13.0-17.5) gm/dL Hct (39.0-53.0) % Neutrophils # (1.3-7.7) k/uL ESR (0-15) mm/hr Chloride (98-107) mmol/L BUN (9-20) mg/dL Creatinine (0.66-1.25) mg/dL Glucose (74-99) mg/dL POC Glucose (mg/dL) 151 H 107 H 125 H (75-99) mg/dL C-Reactive Protein (<10.0) mg/L 07/19/20 07/19/20 07/19/20 Range/Units 03:03 05:00 06:57 WBC (3.8-10.6) k/uL RBC (4.30-5.90) m/uL Hgb (13.0-17.5) gm/dL Hct (39.0-53.0) % Neutrophils # (1.3-7.7) k/uL ESR (0-15) mm/hr Chloride (98-107) mmol/L BUN (9-20) mg/dL Creatinine (0.66-1.25) mg/dL Glucose (74-99) mg/dL POC Glucose (mg/dL) 175 H 177 H 141 H (75-99) mg/dL C-Reactive Protein (<10.0) mg/L 07/19/20 07/19/20 07/19/20 Range/Units 07:12 07:12 07:12 WBC 14.2 H (3.8-10.6) k/uL RBC 3.74 L (4.30-5.90) m/uL Hgb 11.4 L (13.0-17.5) gm/dL Hct 36.9 L (39.0-53.0) % Neutrophils # 12.4 H (1.3-7.7) k/uL ESR 21 H (0-15) mm/hr Chloride 112 H (98-107) mmol/L BUN 55 H (9-20) mg/dL Creatinine 2.22 H (0.66-1.25) mg/dL Glucose 133 H (74-99) mg/dL POC Glucose (mg/dL) (75-99) mg/dL C-Reactive Protein (<10.0) mg/L 07/19/20 07/19/20 07/19/20 Range/Units 07:12 10:04 11:17 WBC (3.8-10.6) k/uL RBC (4.30-5.90) m/uL Hgb (13.0-17.5) gm/dL Hct (39.0-53.0) % Neutrophils # (1.3-7.7) k/uL ESR (0-15) mm/hr Chloride (98-107) mmol/L BUN (9-20) mg/dL Creatinine (0.66-1.25) mg/dL Glucose (74-99) mg/dL POC Glucose (mg/dL) 170 H 204 H (75-99) mg/dL C-Reactive Protein 10.9 H (<10.0) mg/L 07/19/20 07/19/20 07/19/20 Range/Units 12:03 13:49 15:11 WBC (3.8-10.6) k/uL RBC (4.30-5.90) m/uL Hgb (13.0-17.5) gm/dL Hct (39.0-53.0) % Neutrophils # (1.3-7.7) k/uL ESR (0-15) mm/hr Chloride (98-107) mmol/L BUN (9-20) mg/dL Creatinine (0.66-1.25) mg/dL Glucose (74-99) mg/dL POC Glucose (mg/dL) 173 H 144 H 190 H (75-99) mg/dL C-Reactive Protein (<10.0) mg/L Comments: Computed tomography scan of the lumbar spine= multilevel lumbar degenerative disc disease and multilevel lumbar facet arthropathy Assessment and Plan Assessment: Lumbar radiculopathy Lumbar degenerative disc disease. Lumbar spondylosis with lumbar facet arthropathy without myelopathy Myofascial pain syndrome and lumbar paraspinal muscles Bilateral sacroiliitis Patient currently on ELIQUIS , and he is not candidate to have interventional pain management procedures, have to hold on liquids for 72 hours before we can do any interventions, but this option at his time is to do medication management, patient could benefit from [place] 7.5/325 every 6 hours when necessary, he could benefit from Neurontin 100 mg twice a day , and patient can have epidural steroid injections as an outpatient Time with Patient: Greater than 30 PQRS Measure Charge Sheet PQRS Narrative: Smoking Status Former smoker Do You Want the Pneumonia No Vaccine AT THIS TIME? Blood Pressure [Left Arm 157/68 Supine] Blood Pressure 192/86 Pain Intensity [Generalized] 0 Pain Intensity 4 Pain Scale Used Numeric (1 - 10) Scale Used Numeric (1 - 10) Home Medications: Ambulatory Orders Citalopram Hydrobromide [Citalopram HBr] 40 mg PO DAILY@152909/29/14 Levothyroxine Sodium [Synthroid] 88 mcg PO QAM 09/29/14 Omeprazole [PriLOSEC] 20 mg PO BID@0700,152909/29/14 Tamsulosin HCl [Flomax] 0.4 mg PO HS@199911/07/18 Vit C/E/Zn/Coppr/Lutein/Zeaxan [Preservision Areds 2 Softgel] 1 cap PO BID@0700, 1530 11/07/18 Acetaminophen [Tylenol] 650 mg PO Q4H PRN 11/26/18 Melatonin 3 mg PO HS 11/26/18 buPROPion [Wellbutrin] 150 mg PO HS 11/26/18 Kelly-Lanta 30 ml PO Q6H PRN 12/15/18 Insulin Detemir (Levemir) [Levemir] 10 unit SQ QAM 12/15/18 cycloSPORINE [Restasis] 1 drop BOTH EYES BID PRN 12/15/18 Dicyclomine [Bentyl] 10 mg PO TID #0 cap 12/25/18 Apixaban [Eliquis] 2.5 mg PO BID@0700,152907/17/20 Aspirin 325 mg PO DAILY@152907/17/20 Calcitriol [Rocaltrol] 0.25 mcg PO Q7D 07/17/20 Docusate [Colace] 100 mg PO DAILY PRN 07/17/20 Ferrous Sulfate [Iron] 325 mg PO HS 07/17/20 Finasteride [Proscar] 5 mg PO QAM 07/17/20 Furosemide [Lasix] 40 mg PO QAM 07/17/20 Kelly-Pectate Suspension 262mg/15ml 262 mg PO Q4H PRN 07/17/20 Insulin Detemir (Levemir) [Levemir] 25 units SQ HS 07/17/20 LORazepam [Ativan] 0.5 mg PO HS PRN 07/17/20 Oxybutynin Chloride [Ditropan] 2.5 mg PO BID@0700,152907/17/20 Potassium Chloride ER [K-Dur 10] 10 meq PO QAM 07/17/20 Sennosides-Docusate Sodium [Senokot-S] 1 each PO BID@0700,152907/17/20 Simvastatin [Zocor] 40 mg PO HS@199907/17/20 atenoloL [Tenormin] 25 mg PO QAM 07/17/20 glipiZIDE [Glucotrol] 10 mg PO ACHS 07/17/20 hydrALAZINE HCL [Apresoline] 25 mg PO TID@0700,1530,199907/17/20 hydrOXYzine pamoate [hydrOXYzine PAMOATE] 25 mg PO HS 07/17/20
--- NOTE | 2020-07-19 16:11 | PN ---
PROGRESS NOTE DATE OF SERVICE: 07/19/2020 This is an 85-year-old gentleman who was admitted with severe back pain, radiating to the left lower leg, possibly sciatica is being closely monitored. Patient has extreme difficulty in walking, also. Orthopedics seen the patient and has ordered MRI of the lumbosacral spine. The patient is on IV steroids and also insulin drip also. PAST MEDICAL HISTORY: Reviewed. REVIEW OF SYSTEMS: CARDIOVASCULAR: No angina or palpitation. RESPIRATORY: As mentioned earlier. GI: As mentioned earlier. NERVOUS SYSTEM: As mentioned earlier. CURRENT MEDICATIONS: 1. Tylenol. 2. Eliquis. 3. Aspirin. 4. Tenormin. 5. Lipitor. 6. Wellbutrin. 7. Rocaltrol. 8. Celexa. 9. Restasis. 10.Bentyl. 11.Colace. 12.Proscar. 13.Glucotrol. 14.Apresoline. 15.Restoril. 16.Ativan. 17.Melatonin. 18.Narcan. 19.Ditropan. 20.Protonix. 21.Flomax. PHYSICAL EXAMINATION: Patient is alert and oriented x3. Pulse 48, blood pressure is 147/68, respiration 18, temperature 98.2, pulse ox 98% on 2 L. HEENT: Conjunctivae normal. Oral mucosa moist. NECK: No jugular venous distention. No lymph node enlargement. CARDIOVASCULAR: S1, S2, muffled. RESPIRATORY: Breath sounds diminished at the bases, no rhonchi, no crackles. ABDOMEN: Soft, nontender. LEGS: The straight leg raising test is still positive on the left side but slightly better. LABS: WBC is 14.8, hemoglobin is 7.4. Creatinine is 2.22. ASSESSMENT: 1. Severe back pain with acute back pain radiating to the left lower lobe possibly sciatica, L5-S1 with possible severe degenerative joint disease. 2. L3-4 lesion in the CAT scan of the back. 3. Failure of outpatient treatment, severe gait dysfunction. 4. Diabetes mellitus type 2, hyperglycemia with on insulin drip. 5. Acute renal failure with acute tubular necrosis with prerenal acute tubular necrosis. 6. Hyponatremia. 7. Normocytic anemia of chronic disease. 8. History of candidal urinary tract infection previously. 9. History of coronary artery disease. 10.Diabetes mellitus type 2. 11.Gastroesophageal reflux disease. 12.Hypertension. 13.Hyperlipidemia. 14.History of myocardial infarction. 15.History of sleep apnea. 16.History of CPAP. 17.History of CAD, stent. 18.History of anxiety, depression, schizophrenia. 19.Remote history of nicotine dependence. 20.FULL CODE. RECOMMENDATION: Recommend to continue current management and symptomatic treatment. Otherwise, MRI. I would also recommend a sed rate and CRP. Orthopedic evaluation appreciated. Follow up with the labs, white count is slightly elevated, possibly because of steroids and continue insulin drip. Monitor blood sugars closely. Further recommendations to follow. We will increase the Solu-Medrol to q.6. MMODL / IJN: [id number] /
[2020-07-19 17:11] LABS: Glucose,Whole Blood 246 mg/dL (75-99)
--- NOTE | 2020-07-19 17:41 | MR ---
EXAMINATION TYPE: MR lumbar spine wo con DATE OF EXAM: 07/19/2020 COMPARISON: Prior lumbar MRI 09/27/2019, CT 07/17/2020 HISTORY: LBP; Left LE radiculopathy and weakness TECHNIQUE: Multiplanar, multisequence images of the lumbar spine were acquired. L1-L2: Mild spondylosis. L2-L3: No interval change, only mild posterior disc bulge is present. L3-L4: No significant interval change L4-L5: Stable L5-S1: No interval change Lumbar segments are intact. No paraspinal masses are identified. Conus medullaris has a normal appe arance. There is no evident spinal stenosis or significant interval change in foraminal encroachment. No disc herniation. There is facet arthropathy change similar to prior exam and greatest at L5-S1. C ystic focus is again noted associated with the left kidney. IMPRESSION: Exam is essentially stable. There is mild degenerative disc change, intervertebral narrowing L3-4, L4 -5 on the right. Facet arthropathy change especially at L5-S1.
[2020-07-19] MEDS: ASPIRIN 325 MG TAB PO SCH (17:49)
[2020-07-19] MEDS: GABAPENTIN 100 MG CAP PO SCH ×2 (17:49→21:09)
[2020-07-19] MEDS: HYDROcodone/APAP 7.5-325MG 1 EACH TAB PO PRN (18:00)
--- NOTE | 2020-07-19 18:23 | PN ---
PROGRESS NOTE Patient is seen for followup for chronic kidney disease and mild acute kidney injury. Patient is maintained on IV fluids. His serum creatinine is about the same, with slight decrease from 2.45 on admission to 2.2. He complains of back pain which he states has not improved. PHYSICAL EXAMINATION: On examination today, blood pressure was 157/68, heart rate 48 per minute. Patient is afebrile. EXAMINATION OF THE HEART: S1 and S2. EXAMINATION OF LUNGS: Decreased breath sounds at bases. ABDOMEN: Soft, non-tender. Examination of lower extremities shows no evidence of edema. LARRIMAN exam is grossly intact. LABS: Labs show sodium 138, potassium 4.8, chloride 112. CO2 is 22, BUN 55, creatinine 2.2. ASSESSMENT: 1. 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 Baseline creatinine 1.8 to 1.9 mg/dL. Etiology nephrosclerosis. 2. History of coronary artery disease, status post coronary stent. 3. Acute back pain with history of severe osteoarthritis, maintained on steroids, being seen by Orthopedics. Pain management consultation noted as well. 4. Bradycardia. I will hold off on the atenolol. PLAN: Hold Tenormin, as heart rate remains low, and monitor renal profile periodically. Encourage increased oral intake. MMODL / IJN: [id number] /
[2020-07-19 19:11] LABS: Glucose,Whole Blood 259 mg/dL (75-99)
[2020-07-19] MEDS: TAMSULOSIN 0.4 MG CAP.ER.24H PO SCH (21:08)
[2020-07-19] MEDS: hydrOXYzine pamoate 25 MG CAP PO SCH (21:08)
[2020-07-19] MEDS: ATORVASTATIN 20 MG TAB PO SCH (21:08)
[2020-07-19] MEDS: buPROPion 75 MG TAB PO SCH (21:08)
[2020-07-19] MEDS: FERROUS SULFATE 325 MG TAB PO SCH (21:08)
[2020-07-19] MEDS: MELATONIN 3 MG TABLET PO SCH (21:09)
[2020-07-19 21:12] LABS: Glucose,Whole Blood 184 mg/dL (75-99)
[2020-07-19 22:59] LABS: Glucose,Whole Blood 118 mg/dL (75-99)
[2020-07-20 00:03] LABS: Glucose,Whole Blood 155 mg/dL (75-99)
[2020-07-20] MEDS: methylPREDNISolone SOD SUCCI 125 MG/2 ML VIAL IV SCH ×4 (00:03→17:01)
[2020-07-20 02:10] LABS: Glucose,Whole Blood 192 mg/dL (75-99)
[2020-07-20 04:02] LABS: Glucose,Whole Blood 182 mg/dL (75-99)
[2020-07-20] MEDS: SODIUM CHLORIDE 0.9% 1,000 ML IV SCH (04:17)
[2020-07-20 05:59] LABS: Glucose,Whole Blood 202 mg/dL (75-99)
[2020-07-20] MEDS: LEVOTHYROXINE 88 MCG TAB PO SCH (05:59)
[2020-07-20 08:19] LABS: Glucose,Whole Blood 180 mg/dL (75-99)
[2020-07-20] MEDS: glipiZIDE 10 MG TAB PO SCH ×4 (08:21→22:07)
[2020-07-20] MEDS: OXYBUTYNIN CHLORIDE 5 MG TAB PO SCH ×2 (08:23→15:41)
[2020-07-20] MEDS: hydrALAZINE HCL 25 MG TAB PO SCH ×3 (08:23→22:06)
[2020-07-20] MEDS: APIXABAN 2.5 MG TABLET PO SCH ×2 (08:23→15:37)
[2020-07-20] MEDS: FINASTERIDE 5 MG TAB PO SCH (08:24)
[2020-07-20] MEDS: PANTOPRAZOLE 40 MG TABLET PO SCH (08:24)
[2020-07-20] MEDS: GABAPENTIN 100 MG CAP PO SCH ×3 (08:24→22:06)
[2020-07-20] MEDS: SENNOSIDES-DOCUSATE SODIUM 1 EACH TAB PO SCH ×2 (08:24→15:41)
[2020-07-20] MEDS: HYDROcodone/APAP 7.5-325MG 1 EACH TAB PO PRN (08:24)
[2020-07-20] MEDS: POTASSIUM CHLORIDE ER 10 MEQ TAB.ER.PRT PO SCH (08:24)
[2020-07-20] MEDS: INSULIN ASPART (NovoLOG) 100 UNIT/ML VIAL SQ SCH ×3 (08:24→17:00)
[2020-07-20] MEDS: DICYCLOMINE 10 MG CAP PO SCH ×3 (08:24→22:06)
[2020-07-20 08:47] LABS: Basophils % (A) 0 %; Eosinophils % (A) 0 %; HCT 40.3 % (39.0-53.0); HGB 12.3 gm/dL (13.0-17.5); Hypochromasia Slight; Lymphocytes # (A) 0.9 k/uL (1.0-4.8); Lymphocytes % (A) 5 %; MCH 29.9 pg (25.0-35.0); MCHC 30.5 g/dL (31.0-37.0); MCV 98.2 fL (80.0-100.0); Mean Platelet Volume 7.7; Monocytes # (A) 0.3 k/uL (0-1.0); Monocytes % (A) 2 %; Neutrophils # (A) 15.4 k/uL (1.3-7.7); Neutrophils % (A) 92 %; Platelet Count 232 k/uL (150-450); RDW 13.2 % (11.5-15.5); WBC 16.7 k/uL (3.8-10.6)
--- NOTE | 2020-07-20 08:52 | P.PN ---
Progress Note - Text Progress Note Date: 07/20/20 Orthopedic spine: History of present illness: Patient is a pleasant 85-year-old male who is seen and examined bedside for follow-up evaluation of his intractable low back and left lower extremity radiculopathy. Overall he has not had much improvement or changes compared to yesterday. He states he didn't sleep during the night. His pain continues to be present and persistent. He does continue have significant left lower extremity radicular pain and low back pain. This pain is debilitating for him. He has not been out of bed. He currently has a Lamas catheter intact. He states he has pain that radiates from the lumbar spine towards the left hip and buttock and down the posterior thigh and calf. He does have some weakness with dorsiflexion on the left. He states his symptoms have been ongoing over the past 3 weeks after he states he went to the restroom to have a bowel movement at home and was unable to get off the toilet. His was grocery shopping. He states he sat on the toilet for approximately 3 hours. His symptoms have been exacerbated since that time. He denies specific injury. He does have some radicular pain down the right lower extremity as well but to a lesser degree. He does admit to history of urinary incontinence. He does not feel specific change in his urinary status but states his Lamas catheter is currently intact due to his inability to get out of bed due to pain. He denies any saddle anesthesia. Since being seen and examined yesterday he has had an MRI of the lumbar spine performed. Previously had lumbar CT imaging performed. Patient is been seen and examined by medicine for his other medical diagnoses including diabetes mellitus type 2 uncontrolled with hyperglycemia, hyponatremia, and acute renal failure with acute tubular necrosis. Patient also has a significant medical history which includes coronary artery disease, hypertension, hyperlipidemia, myocardial infarction, and candidal urinary tract infection. Patient has been seen and examined by pain management. They're planning for pain control with oral medications and we'll plan to have the patient follow-up in the outpatient setting to sit up injections. Patient is currently unable to have an injection during his hospital admittance due to current anticoagulation use. Physical exam: Patient is awake, alert, and oriented 3 Vital signs stable Good chest excursion with deep inspiration and expiration Patient has significant difficulty with rolling over in bed due to his pain No specific pain with palpation along the lumbar spine Dorsiflexion, plantarflexion, and extensor hallucis longus positive sustained on the left Left lower extremity strength is 3+/5 including dorsiflexion Patient has difficulty lifting his left lower extremity off the bed Significant pain with active range of motion of the left lower extremity most specifically with hip flexion Evidence of a well-healed incision over the left anterior knee No lower extremity hyperreflexia bilaterally No signs or symptoms of DVT; no calf pain No pain with internal and external rotation of the hips bilaterally Neurovascularly intact Lamas catheter intact Pertinent studies: MRI the lumbar spine taken on 07/19/2020: Exam is essentially stable as compared to previous lumbar imaging from 09/27/[address] imaging from 07/17/2020; no evidence of significant disc herniation or spinal canal stenosis; L5-S1 facet arthropathy; mild degenerative change at L3-4 and L4-5 with some foraminal narrowing without specific or significant stenosis; no evidence of v ertebral body compression fracture deformity; no evidence of spondylolisthesis CT lumbar spine taken on 07/17/2020: L2-3 broad-based disc bulge; L3-4 broad disc bulge; L4-5 disc bulge; L5-S1 marked facet hypertrophy on the left and disc bulge; no acute osseous abnormality; no obvious evidence of significant canal stenosis; no evidence of vertebral body compression fracture Assessment: Intractable low back pain Left lower extremity radiculopathy Left lower extremity weakness L5-S1 facet hypertrophy Multiple lumbar disc bulging most significant at L3-4 Diabetes mellitus type 2 uncontrolled with hyperglycemia Hyponatremia Acute renal failure with acute tubular necrosis History of coronary artery disease Hypertension Hyperlipidemia History of myocardial infarction History of candidal urinary tract infection Current anticoagulation use Plan: 1. Patient continues to experience intractable back pain and left lower extremity radiculopathy that has been ongoing over the past couple weeks after a prolonged episode of sitting on a toilet. He has been receiving IV Dilaudid and Solu-Medrol during his admission to the hospital with minimal overall improvement of the symptoms. He has been bedridden and unable to ambulate on the left lower extremity due to his pain. He currently has a Lamas catheter intact as he states his pain is severe and he is unable to mobilize out of the bed. He does have a history of urinary incontinence and states he does not feel specific change in his urinary status other than the inability to get out of bed to urinate. He has had a lumbar MRI and CT imaging of the lumbar spine performed. A lumbar MRI imaging does not show any significant spinal canal stenosis or neural foraminal stenosis. His overall alignment is maintained. He does not have evidence of compression fracture deformity. Although his symptoms are significant, he does not have any indication in which surgical intervention would provide any improvement of his symptoms. We would strongly recommend exhausting all conservative treatment options and refrain from any surgical intervention at his lumbar spine. It is difficult to determine the exact cause of his significant symptoms and they may be related to myofascial strain at the time of his prolonged sitting on a toilet. We discussed he should continue following with pain management. Pain management is planning for pain control with oral medications with planned follow-up evaluation in the outpatient setting to schedule injections once patient is able to come off of his anticoagulation use prior to the injection. This plan of care was discussed in detail with the patient and he agrees with this plan. At this time, patient will clear for discharge from an orthopedic spine standpoint. We're not planning for surgical intervention in his lumbar spine. We'll plan to have him follow up on an as-needed basis. 2. Continue pain control medications as prescribed including IV Dilaudid and Solu-Medrol; medications may be changed for discontinued per the recommendations of pain management and medicine 3. Patient will continue be seen and examined by medicine for his other significant medical diagnoses 4. Patient will continue treatment with pain management
[2020-07-20 09:24] LABS: Calcium 9.2 mg/dL (8.4-10.2); Potassium 4.9 mmol/L (3.5-5.1)
[2020-07-20 10:45] LABS: Glucose,Whole Blood 172 mg/dL (75-99)
--- NOTE | 2020-07-20 10:46 | P.PN ---
Subjective Patient is seen in follow-up for acute kidney injury and chronic kidney disease. Renal function stable. Had a large bowel movement this morning from the laxatives. No chest pain or shortness of breath. Oral intake fair. Vital signs are stable. General: The patient appeared well nourished and normally developed. HEENT: Head exam is unremarkable. Neck is without jugular venous distension. LUNGS: Lungs are clear to auscultation and percussion. Breath sounds decreased. HEART: Rate and Rhythm are regular. ABDOMEN: Soft, nontender. EXTREMITITES: No edema. Objective - Vital Signs Vital signs: Vital Signs Temp 97.8 F 07/20/20 05:00 Pulse 52 L 07/20/20 05:00 Resp 18 07/20/20 05:00 BP 156/71 07/20/20 05:00 Pulse Ox 97 07/20/20 05:00 Intake & Output 07/19/20 07/20/20 07/20/20 18:59 06:59 18:59 Intake Total 300.541 1112.125 8.933 Output Total 650 Balance 636.058 535.125 8.933 Intake: Intake, IV Titration 636.058 945.125 8.933 Amount Insulin Regular 100 unit 36.058 45.125 8.933 In Sodium Chloride 0.9% 100 ml @ Titrate IV .Q0M NICKIE Rx#:[id number] Sodium Chloride 0.9% 1, 600 900 000 ml @ 75 mls/hr IV . [id number] NICKIE Rx#:[id number] Oral 240 Output: Urine 650 Other: Voiding Method Indwelling Catheter Diaper Diaper Indwelling Catheter Indwelling Catheter - Labs CBC & Chem 7: 07/20/20 08:26 07/20/20 08:26 Labs: Abnormal Lab Results - Last 24 Hours (Table) 07/19/20 07/19/20 07/19/20 Range/Units 07:12 07:12 11:17 WBC (3.8-10.6) k/uL RBC (4.30-5.90) m/uL Hgb (13.0-17.5) gm/dL MCHC (31.0-37.0) g/dL Neutrophils # (1.3-7.7) k/uL Lymphocytes # (1.0-4.8) k/uL ESR 21 H (0-15) mm/hr Chloride (98-107) mmol/L Carbon Dioxide (22-30) mmol/L BUN (9-20) mg/dL Creatinine (0.66-1.25) mg/dL Glucose (74-99) mg/dL POC Glucose (mg/dL) 204 H (75-99) mg/dL C-Reactive Protein 10.9 H (<10.0) mg/L 07/19/20 07/19/20 07/19/20 Range/Units 12:03 13:49 15:11 WBC (3.8-10.6) k/uL RBC (4.30-5.90) m/uL Hgb (13.0-17.5) gm/dL MCHC (31.0-37.0) g/dL Neutrophils # (1.3-7.7) k/uL Lymphocytes # (1.0-4.8) k/uL ESR (0-15) mm/hr Chloride (98-107) mmol/L Carbon Dioxide (22-30) mmol/L BUN (9-20) mg/dL Creatinine (0.66-1.25) mg/dL Glucose (74-99) mg/dL POC Glucose (mg/dL) 173 H 144 H 190 H (75-99) mg/dL C-Reactive Protein (<10.0) mg/L 07/19/20 07/19/20 07/19/20 Range/Units 16:57 19:01 21:05 WBC (3.8-10.6) k/uL RBC (4.30-5.90) m/uL Hgb (13.0-17.5) gm/dL MCHC (31.0-37.0) g/dL Neutrophils # (1.3-7.7) k/uL Lymphocytes # (1.0-4.8) k/uL ESR (0-15) mm/hr Chloride (98-107) mmol/L Carbon Dioxide (22-30) mmol/L BUN (9-20) mg/dL Creatinine (0.66-1.25) mg/dL Glucose (74-99) mg/dL POC Glucose (mg/dL) 246 H 259 H 184 H (75-99) mg/dL C-Reactive Protein (<10.0) mg/L 07/19/20 07/20/20 07/20/20 Range/Units 22:58 00:01 02:05 WBC (3.8-10.6) k/uL RBC (4.30-5.90) m/uL Hgb (13.0-17.5) gm/dL MCHC (31.0-37.0) g/dL Neutrophils # (1.3-7.7) k/uL Lymphocytes # (1.0-4.8) k/uL ESR (0-15) mm/hr Chloride (98-107) mmol/L Carbon Dioxide (22-30) mmol/L BUN (9-20) mg/dL Creatinine (0.66-1.25) mg/dL Glucose (74-99) mg/dL POC Glucose (mg/dL) 118 H 155 H 192 H (75-99) mg/dL C-Reactive Protein (<10.0) mg/L 07/20/20 07/20/20 07/20/20 Range/Units 03:59 05:58 08:08 WBC (3.8-10.6) k/uL RBC (4.30-5.90) m/uL Hgb (13.0-17.5) gm/dL MCHC (31.0-37.0) g/dL Neutrophils # (1.3-7.7) k/uL Lymphocytes # (1.0-4.8) k/uL ESR (0-15) mm/hr Chloride (98-107) mmol/L Carbon Dioxide (22-30) mmol/L BUN (9-20) mg/dL Creatinine (0.66-1.25) mg/dL Glucose (74-99) mg/dL POC Glucose (mg/dL) 182 H 202 H 180 H (75-99) mg/dL C-Reactive Protein (<10.0) mg/L 07/20/20 07/20/20 Range/Units 08:26 08:26 WBC 16.7 H (3.8-10.6) k/uL RBC 4.10 L (4.30-5.90) m/uL Hgb 12.3 L (13.0-17.5) gm/dL MCHC 30.5 L (31.0-37.0) g/dL Neutrophils # 15.4 H (1.3-7.7) k/uL Lymphocytes # 0.9 L (1.0-4.8) k/uL ESR (0-15) mm/hr Chloride 112 H (98-107) mmol/L Carbon Dioxide 19 L (22-30) mmol/L BUN 56 H (9-20) mg/dL Creatinine 2.14 H (0.66-1.25) mg/dL Glucose 178 H (74-99) mg/dL POC Glucose (mg/dL) (75-99) mg/dL C-Reactive Protein (<10.0) mg/L Assessment and Plan Plan: Assessment: 1. Acute kidney injury mostly prerenal improving with IV hydration. Creatinine 2.14 today. 2. Chronic kidney disease stage III with baseline creatinine in the range of 1.8-2 secondary to nephrosclerosis. 3. Metabolic acidosis secondary to acute kidney injury and IV fluids. 4. Chronic kidney disease mineral bone disease maintained on calcitriol. 5. Hypertension with chronic kidney disease. Stable. 6. Back pain. No acute changes noted on MRI. Orthopedic surgery following. 7. Diabetes mellitus. Plan: Hep-Lock IV fluids. Encouraged oral intake. Avoid nephrotoxins. Continue to monitor renal function and urine output.
[2020-07-20 11:55] LABS: Glucose,Whole Blood 157 mg/dL (75-99)
[2020-07-20 13:59] LABS: Glucose,Whole Blood 182 mg/dL (75-99)
[2020-07-20] MEDS: INSULIN REGULAR 100 UNIT in SODIUM CHLORIDE 0.9% 100 ML IV SCH (15:37)
--- NOTE | 2020-07-20 15:38 | P.PN ---
Subjective Progress Note Date: 07/20/20 Principal diagnosis: This is an 85-year-old male who was recently admitted with severe back pain radiating to the left lower leg with possible sciatica and is being closely monitored. Orthopedic surgery evaluated the patient recommending consult with anesthesia for possible steroid injection along with pain management which is currently pending at this time. Patient's blood sugars continued to be elevated and patient remains on insulin drip at this time. Will continue to monitor closely. Patient had an episode of acute chest pain and an EKG was done along with a troponin that was negative. Patient will continue on certification officer. Currently patient's is denying any chest pain, shortness of breath, or palpitations. Patient is afebrile. No reports of nausea or vomiting and patient is tolerating diet. Patient creatinine today slightly improved at 2.14 with a BUN of 56. Potassium is 4.9 and sodium is 138. Nephrology is following. Objective - Vital Signs Vital signs: Vital Signs Temp 97.7 F 07/20/20 12:09 Pulse 51 L 07/20/20 12:09 Resp 26 H 07/20/20 12:09 BP 159/64 07/20/20 12:09 Pulse Ox 97 07/20/20 12:09 Intake & Output 07/19/20 07/20/20 07/20/20 18:59 06:59 18:59 Intake Total 172.633 1239.125 20.500 Output Total 650 Balance 636.058 535.125 20.500 Intake: Intake, IV Titration 636.058 945.125 20.500 Amount Insulin Regular 100 unit 36.058 45.125 20.500 In Sodium Chloride 0.9% 100 ml @ Titrate IV .Q0M NICKIE Rx#:[id number] Sodium Chloride 0.9% 1, 600 900 000 ml @ 75 mls/hr IV . [id number] NICKIE Rx#:[id number] Oral 240 Output: Urine 650 Other: Voiding Method Indwelling Catheter Diaper Diaper Indwelling Catheter Indwelling Catheter - Exam Gen: This is a 85-year-old male sitting up in bed awake, alert and oriented 3, well-developed, well-nourished. Temp is 97.7F, pulse is 51, respirations are 26, blood pressure is 159/64, oxygen saturation is 97% on 2 L via nasal cannula. HEENT: Head is atraumatic, normocephalic. Pupils equal, round. Sclerae is anicteric. NECK: Supple. No JVD. No lymphadenopathy. No thyromegaly. LUNGS: Sounds diminished at the bases with no wheezing or rhonchi noted. No intercostal retractions. HEART: S1, S2 are muffled ABDOMEN: Soft. Bowel sounds are present. No masses. No tenderness. EXTREMITIES: No pedal edema. No calf tenderness. NEUROLOGICAL: Patient is awake, alert and oriented x3. Diffusely weak - Labs CBC & Chem 7: 07/20/20 08:26 07/20/20 08:26 Labs: Abnormal Lab Results - Last 24 Hours (Table) 07/19/20 07/19/20 07/19/20 Range/Units 16:57 19:01 21:05 WBC (3.8-10.6) k/uL RBC (4.30-5.90) m/uL Hgb (13.0-17.5) gm/dL MCHC (31.0-37.0) g/dL Neutrophils # (1.3-7.7) k/uL Lymphocytes # (1.0-4.8) k/uL Chloride (98-107) mmol/L Carbon Dioxide (22-30) mmol/L BUN (9-20) mg/dL Creatinine (0.66-1.25) mg/dL Glucose (74-99) mg/dL POC Glucose (mg/dL) 246 H 259 H 184 H (75-99) mg/dL 07/19/20 07/20/20 07/20/20 Range/Units 22:58 00:01 02:05 WBC (3.8-10.6) k/uL RBC (4.30-5.90) m/uL Hgb (13.0-17.5) gm/dL MCHC (31.0-37.0) g/dL Neutrophils # (1.3-7.7) k/uL Lymphocytes # (1.0-4.8) k/uL Chloride (98-107) mmol/L Carbon Dioxide (22-30) mmol/L BUN (9-20) mg/dL Creatinine (0.66-1.25) mg/dL Glucose (74-99) mg/dL POC Glucose (mg/dL) 118 H 155 H 192 H (75-99) mg/dL 07/20/20 07/20/20 07/20/20 Range/Units 03:59 05:58 08:08 WBC (3.8-10.6) k/uL RBC (4.30-5.90) m/uL Hgb (13.0-17.5) gm/dL MCHC (31.0-37.0) g/dL Neutrophils # (1.3-7.7) k/uL Lymphocytes # (1.0-4.8) k/uL Chloride (98-107) mmol/L Carbon Dioxide (22-30) mmol/L BUN (9-20) mg/dL Creatinine (0.66-1.25) mg/dL Glucose (74-99) mg/dL POC Glucose (mg/dL) 182 H 202 H 180 H (75-99) mg/dL 07/20/20 07/20/20 07/20/20 Range/Units 08:26 08:26 10:42 WBC 16.7 H (3.8-10.6) k/uL RBC 4.10 L (4.30-5.90) m/uL Hgb 12.3 L (13.0-17.5) gm/dL MCHC 30.5 L (31.0-37.0) g/dL Neutrophils # 15.4 H (1.3-7.7) k/uL Lymphocytes # 0.9 L (1.0-4.8) k/uL Chloride 112 H (98-107) mmol/L Carbon Dioxide 19 L (22-30) mmol/L BUN 56 H (9-20) mg/dL Creatinine 2.14 H (0.66-1.25) mg/dL Glucose 178 H (74-99) mg/dL POC Glucose (mg/dL) 172 H (75-99) mg/dL 07/20/20 07/20/20 Range/Units 11:54 13:58 WBC (3.8-10.6) k/uL RBC (4.30-5.90) m/uL Hgb (13.0-17.5) gm/dL MCHC (31.0-37.0) g/dL Neutrophils # (1.3-7.7) k/uL Lymphocytes # (1.0-4.8) k/uL Chloride (98-107) mmol/L Carbon Dioxide (22-30) mmol/L BUN (9-20) mg/dL Creatinine (0.66-1.25) mg/dL Glucose (74-99) mg/dL POC Glucose (mg/dL) 157 H 182 H (75-99) mg/dL Assessment and Plan Assessment: Severe back pain with acute back pain radiating to the left lower lobe possibly sciatica, L5-S1 with possible severe degenerative joint disease L3-4 lesion in the CAT scan of the back Failure of outpatient treatment, severe gait dysfunction Diabetes mellitus type 2, hyperglycemia while on the insulin drip Acute renal failure with acute tubular necrosis with prerenal acute tubular necrosis Hyponatremia Normocytic anemia of chronic disease History of candidal urinary tract infection previously History of coronary artery disease Diabetes mellitus type 2 Gastroesophageal reflux disease Hypertension Hyperlipidemia History of myocardial infarction History of sleep apnea History of CPAP History of coronary artery disease, stent History of anxiety, depression, schizophrenia remote history of nicotine dependence Full code Recommendations and discussion: Recommend continue current medications, management, and symptomatic treatment. Multiple medical consultations following. Orthopedic surgery evaluated the patient and following. Neuro consult placed in pending at this time along with pain management consult. Patient had a brief episode of chest pain and an EKG was done along with a troponin which was negative. Will continue to monitor closely. Continue to monitor blood sugars closely. Patient currently maintained on insulin drip and will continue at this time. Will repeat a.m. labs. Further recommendations to follow. Case management social work following and assisting with discharge planning needs this patient's plan is to return home with once stabilized and discharged.
[2020-07-20] MEDS: CITALOPRAM HYDROBROMIDE 20 MG TAB PO SCH (15:41)
[2020-07-20] MEDS: ASPIRIN 325 MG TAB PO SCH (15:41)
[2020-07-20 16:09] LABS: Glucose,Whole Blood 281 mg/dL (75-99)
--- NOTE | 2020-07-20 16:45 | P.CNNES ---
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 He stated it started when he was sitting on the toilet about two weeks ago and had a hard time getting up. He sat there for 3 hours before he he could get up. He localized the pain to left lower back that radiates down the side of leg all way down to side of foot. The pain is constant and rates it 8 to 10/10. The back pain the has been progressively worse over the last 2 weeks. He does have urinary incontinence since end of last year but has not got worse since this back pain. Denies bowel issues. He feels like the pain has been so unbearable that he had to come to the emergency department. He said he is having a hard time moving his leg because of pain. Denies trauma or fall. He denies any weight loss or gain in last 6 month. The patient does use a walker at home for ambulation. The patient denies any difficulty getting his words out. Denies any neck pain. Denies any weakness in the upper extremities and that's new in the last the 2 months. Denies any slurring of the speech or difficulty getting his words out. Denies any numbness or tingling in the upper extremities. On presentation the patient's blood pressure was 160/110 heart rate of 60, temperature of 97.7 Fahrenheit oral, respiratory of 18 and the pulse ox of 97 nasal cannula In the ED the patient had CT of the the lumbar spine without contrast and was reported at disc bulge with mild anterior thecal sac compression. This appears greatest at L3-L4. Large facet hypertrophy and L5-S1 on the left. No acute osseous abnormality. Orthopedic has been consulted and MRI of the lumbar spine w/o was done on 07/19/2020 (prior MRI L-spine 09/27/2019) which is reported as exam is essentially stable. There is mild degenerative disc change at, intravertebral narrowing L3-L4 at, L4-L5 on the right. Facet arthropathic the change especially at the L5-S1. Per orthopedic note that the patient continues to have this the left lower extremity radiculopathy and then the hospital has been getting IV Dilaudid and Solu-Medrol with minimal improvement of symptoms. They recommend the conservative treatments and refrain from any surgical intervention at his lumbar spine. Pain management is on board and the patient is planned for follow-up evaluation in outpatient setting to schedule injection once the patient is able to come off his anticoagulation use prior to injection. Patient initial white blood cell is 8.3 and the latest one is 16.7. His creatinine upon presentation is 2.45 and baseline is for the most part 1.82 to 1.95. there are episodes where it was 2.35 highest. Patient ESR is 21. The CRP is 10.9 Of note he states he had a stroke effecting the right hand about 6-8 month ago and he said he was told of that at [facility]. I reviewed the previous images and none at this facility in past 6-8 months were done for right hand/sided weakness. Last CT of the head in our system mild was done on the 12/15/2018 which was reported as cerebral atrophy and chronic small vessel ischemia. No change compared to old exam. MR the brain was done on 11/08/2018 and was reported as extensive white matter changes probably due to chronic small vessel ischemia that shows significant progression compared to old exam. There is probably an acute lacunar infarct and in the right posterior parietal lobe white matter. Review of Systems Review of system: The 12 point system was reviewed and apparent positive and negative per HPI. Past Medical History Past Medical History: Coronary Artery Disease (CAD), Cancer, Diabetes Mellitus, GERD/Reflux, Hyperlipidemia, Hypertension, Myocardial Infarction ([place]), Pneumonia, Prostate Disorder, Sleep Apnea/CPAP/BIPAP, Thyroid Disorder Additional Past Medical History / Comment(s): no CPAP used, hiatal hernia, hx thyroid cancer, macular degeneration danielle eyes Last Myocardial Infarction Date:: 1999 History of Any Multi-Drug Resistant Organisms: None Reported Past Surgical History: Heart Catheterization With Stent, Joint Replacement Additional Past Surgical History / Comment(s): left knee replacement, danielle cataracts, thyroidectomy Past Anesthesia/Blood Transfusion Reactions: No Reported Reaction Additional Past Anesthesia/Blood Transfusion Reaction / Comment(s): clausterphobia -"uses open mri" Date of Last Stent Placement:: 1999 Past Psychological History: Anxiety, Depression, Schizophrenia Additional Psychological History / Comment(s): Patient lives at home and helps with care. He uses a walker at home and he uses grab bars. Pt also has been on oxygen since getting to rehab, he normally wears 2 L of oxygen at home. He no longer drives, family can take him to appts. Smoking Status: Former smoker Past Alcohol Use History: None Reported Additional Past Alcohol Use History / Comment(s): Started smoking 1952 and quit 1993 Past Drug Use History: None Reported - Past Family History Father Family Medical History: Cancer Additional Family Medical History / Comment(s): Father had lung cancer and colorectal cancer. He smoked as a younger man. Mother Family Medical History: Cancer Additional Family Medical History / Comment(s): Mother had lung cancer. She was a lifelong smoker Medications and Allergies Home Medications Medication Instructions Recorded Confirmed Type Citalopram Hydrobromide 40 mg PO DAILY@1530 09/29/14 07/17/20 History [Citalopram HBr] Levothyroxine Sodium [Synthroid] 88 mcg PO QAM 09/29/14 07/17/20 History Omeprazole [PriLOSEC] 20 mg PO BID@0700,1530 09/29/14 07/17/20 History Tamsulosin HCl [Flomax] 0.4 mg PO HS@199911/07/18 07/17/20 History Vit C/E/Zn/Coppr/Lutein/Zeaxan 1 cap PO BID@0700,1530 11/07/18 07/17/20 History [Preservision Areds 2 Softgel] Acetaminophen [Tylenol] 650 mg PO Q4H PRN 11/26/18 07/17/20 History Melatonin 3 mg PO HS 11/26/18 07/17/20 History buPROPion [Wellbutrin] 150 mg PO HS 11/26/18 07/17/20 History Kelly-Lanta 30 ml PO Q6H PRN 12/15/18 07/17/20 History Insulin Detemir (Levemir) [Levemir] 10 unit SQ QAM 12/15/18 07/17/20 History cycloSPORINE [Restasis] 1 drop BOTH EYES BID PRN 12/15/18 07/17/20 History Dicyclomine [Bentyl] 10 mg PO TID #0 cap 12/25/18 07/17/20 Rx Apixaban [Eliquis] 2.5 mg PO BID@0700,1530 07/17/20 07/17/20 History Aspirin 325 mg PO DAILY@1530 07/17/20 07/17/20 History Calcitriol [Rocaltrol] 0.25 mcg PO Q7D 07/17/20 07/17/20 History Docusate [Colace] 100 mg PO DAILY PRN 07/17/20 07/17/20 History Ferrous Sulfate [Iron] 325 mg PO HS 07/17/20 07/17/20 History Finasteride [Proscar] 5 mg PO QAM 07/17/20 07/17/20 History Furosemide [Lasix] 40 mg PO QAM 07/17/20 07/17/20 History Kelly-Pectate Suspension 262mg/15ml 262 mg PO Q4H PRN 07/17/20 07/17/20 History Insulin Detemir (Levemir) [Levemir] 25 units SQ HS 07/17/20 07/17/20 History LORazepam [Ativan] 0.5 mg PO HS PRN 07/17/20 07/17/20 History Oxybutynin Chloride [Ditropan] 2.5 mg PO BID@0700,1530 07/17/20 07/17/20 History Potassium Chloride ER [K-Dur 10] 10 meq PO QAM 07/17/20 07/17/20 History Sennosides-Docusate Sodium 1 each PO BID@0700,15307/17/20 07/17/20 History [Senokot-S] Simvastatin [Zocor] 40 mg PO HS@199907/17/20 07/17/20 History atenoloL [Tenormin] 25 mg PO QAM 07/17/20 07/17/20 History glipiZIDE [Glucotrol] 10 mg PO ACHS 07/17/20 07/17/20 History hydrALAZINE HCL [Apresoline] 25 mg PO TID@0700,1530,2000 08/29/20 08/29/20 History hydrOXYzine pamoate [hydrOXYzine 25 mg PO HS 07/17/20 07/17/20 History PAMOATE] Allergies Allergy/AdvReac Type Severity Reaction Status Date / Time shellfish derived [Shellfish] AdvReac Rash/Hives Verified 07/17/20 22:32 Physical Examination - Vital Signs Vital Signs: Vital Signs Temp Pulse Pulse Resp BP Pulse Ox 07/20/20 12:09 97.7 F 51 L 26 H 159/64 97 07/20/20 05:00 97.8 F 52 L 18 156/71 97 07/19/20 21:00 98.0 F 56 L 20 154/68 97 Intake and Output 07/20/20 07/20/20 07/20/20 06:59 14:59 22:59 Intake Total 921.325 20.500 Output Total 650 Balance 271.325 20.500 Intake: Intake, IV Titration 921.325 20.500 Amount Insulin Regular 100 unit 21.325 20.500 In Sodium Chloride 0.9% 100 ml @ Titrate IV .Q0M NICKIE Rx#:[id number] Sodium Chloride 0.9% 1, 900 000 ml @ 75 mls/hr IV . [id number] NICKIE Rx#:[id number] Output: Urine 650 Other: Voiding Method Diaper Diaper Indwelling Catheter Indwelling Catheter GENERAL: The patient is lying in bed and is in acute distress. CHEST: The heart rate is regular rate rhythm. No murmurs to auscultation. LUNG: Clear to auscultation bilaterally no wheezing noted throughout. Not labored breathing. ABDOMEN/GI: Bowel sounds present in all 4 quadrants. No tenderness to palpation throughout. NEUROLOGICAL: Higher mental function: The patient is awake, alert, oriented to self, place and time. Patient is following commands. No aphasia and no neglect. Cranial nerves: The pupils are round, equal and reactive to light and accomm odation. 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 Extraocular movement is intact no nystagmus is noted. Facial sensation is normal to touch throughout. The facial strength is normal throughout. Hearing is normal bilaterally to hand rub. Tongue is midline and moved [id number] without any difficulty. No dysarthria is noted. Shoulder shrug is normal bilaterally. Motor: gait is defered because of patient pain. Motor strength on the left was hard to assess because of patient. pain but was able to lift left lower extremity above gravity and move his ankle movement antigravity. Otherwsie strength is 5/5. Both hand pump stitcher seemed equal, Normal tone and bulk. Sensation: Decrease to pinprick from proximal calf all way down to digits bilaterally and from mid-forearm all way down to digits of hand bilaterally. . Reflexes (right/left): 1+ throughout. Could not assess left lower extremity since patient was in pain and he refused to be assessed. Plantars are downgoing bilaterally. Results - Laboratory Findings CBC and BMP: 07/20/20 08:26 07/20/20 08:26 Abnormal Lab Findings: Abnormal Labs 07/17/20 07/17/20 07/17/20 16:35 16:35 16:35 WBC RBC 3.79 L Hgb 11.6 L Hct 36.9 L MCHC Neutrophils # Lymphocytes # ESR Sodium 134 L Chloride Carbon Dioxide 19 L BUN 55 H Creatinine 2.45 H Glucose 424 H POC Glucose (mg/dL) Plasma Lactic Acid Qasim 3.1 H* AST 15 L Alkaline Phosphatase 153 H C-Reactive Protein Total Protein 5.6 L Albumin 3.2 L Urine Protein Urine Glucose (UA) 07/17/20 07/17/20 07/17/20 16:57 19:18 21:46 WBC RBC Hgb Hct MCHC Neutrophils # Lymphocytes # ESR Sodium Chloride Carbon Dioxide BUN Creatinine Glucose POC Glucose (mg/dL) 327 H 316 H Plasma Lactic Acid Qasim AST Alkaline Phosphatase C-Reactive Protein Total Protein Albumin Urine Protein Trace H Urine Glucose (UA) 4+ H 07/18/20 07/18/20 07/18/20 07:02 07:02 07:15 WBC RBC 3.84 L Hgb 11.7 L Hct 38.0 L MCHC 30.8 L Neutrophils # Lymphocytes # ESR Sodium Chloride 113 H Carbon Dioxide 21 L BUN 55 H Creatinine 2.31 H Glucose 117 H POC Glucose (mg/dL) 128 H Plasma Lactic Acid Qasim AST Alkaline Phosphatase C-Reactive Protein Total Protein Albumin Urine Protein Urine Glucose (UA) 07/18/20 07/18/20 07/18/20 11:37 17:07 19:09 WBC RBC Hgb Hct MCHC Neutrophils # Lymphocytes # ESR Sodium Chloride Carbon Dioxide BUN Creatinine Glucose POC Glucose (mg/dL) 164 H 315 H 336 H Plasma Lactic Acid Qasim AST Alkaline Phosphatase C-Reactive Protein Total Protein Albumin Urine Protein Urine Glucose (UA) 07/18/20 07/18/20 07/18/20 19:43 20:06 20:27 WBC RBC Hgb Hct MCHC Neutrophils # Lymphocytes # ESR Sodium Chloride Carbon Dioxide BUN Creatinine Glucose POC Glucose (mg/dL) 300 H 280 H 270 H Plasma Lactic Acid Qasim AST Alkaline Phosphatase C-Reactive Protein Total Protein Albumin Urine Protein Urine Glucose (UA) 07/18/20 07/18/20 07/19/20 21:03 23:01 00:58 WBC RBC Hgb Hct MCHC Neutrophils # Lymphocytes # ESR Sodium Chloride Carbon Dioxide BUN Creatinine Glucose POC Glucose (mg/dL) 231 H 151 H 107 H Plasma Lactic Acid Qasim AST Alkaline Phosphatase C-Reactive Protein Total Protein Albumin Urine Protein Urine Glucose (UA) 07/19/20 07/19/20 07/19/20 02:05 03:03 05:00 WBC RBC Hgb Hct MCHC Neutrophils # Lymphocytes # ESR Sodium Chloride Carbon Dioxide BUN Creatinine Glucose POC Glucose (mg/dL) 125 H 175 H 177 H Plasma Lactic Acid Qasim AST Alkaline Phosphatase C-Reactive Protein Total Protein Albumin Urine Protein Urine Glucose (UA) 07/19/20 07/19/20 07/19/20 06:57 07:12 07:12 WBC 14.2 H RBC 3.74 L Hgb 11.4 L Hct 36.9 L MCHC Neutrophils # 12.4 H Lymphocytes # ESR Sodium Chloride 112 H Carbon Dioxide BUN 55 H Creatinine 2.22 H Glucose 133 H POC Glucose (mg/dL) 141 H Plasma Lactic Acid Qasim AST Alkaline Phosphatase C-Reactive Protein Total Protein Albumin Urine Protein Urine Glucose (UA) 07/19/20 07/19/20 07/19/20 07:12 07:12 10:04 WBC RBC Hgb Hct MCHC Neutrophils # Lymphocytes # ESR 21 H Sodium Chloride Carbon Dioxide BUN Creatinine Glucose POC Glucose (mg/dL) 170 H Plasma Lactic Acid Qasim AST Alkaline Phosphatase C-Reactive Protein 10.9 H Total Protein Albumin Urine Protein Urine Glucose (UA) 07/19/20 07/19/20 07/19/20 11:17 12:03 13:49 WBC RBC Hgb Hct MCHC Neutrophils # Lymphocytes # ESR Sodium Chloride Carbon Dioxide BUN Creatinine Glucose POC Glucose (mg/dL) 204 H 173 H 144 H Plasma Lactic Acid Qasim AST Alkaline Phosphatase C-Reactive Protein Total Protein Albumin Urine Protein Urine Glucose (UA) 07/19/20 07/19/20 07/19/20 15:11 16:57 19:01 WBC RBC Hgb Hct MCHC Neutrophils # Lymphocytes # ESR Sodium Chloride Carbon Dioxide BUN Creatinine Glucose POC Glucose (mg/dL) 190 H 246 H 259 H Plasma Lactic Acid Qasim AST Alkaline Phosphatase C-Reactive Protein Total Protein Albumin Urine Protein Urine Glucose (UA) 07/19/20 07/19/20 07/20/20 21:05 22:58 00:01 WBC RBC Hgb Hct MCHC Neutrophils # Lymphocytes # ESR Sodium Chloride Carbon Dioxide BUN Creatinine Glucose POC Glucose (mg/dL) 184 H 118 H 155 H Plasma Lactic Acid Qasim AST Alkaline Phosphatase C-Reactive Protein Total Protein Albumin Urine Protein Urine Glucose (UA) 07/20/20 07/20/20 07/20/20 02:05 03:59 05:58 WBC RBC Hgb Hct MCHC Neutrophils # Lymphocytes # ESR Sodium Chloride Carbon Dioxide BUN Creatinine Glucose POC Glucose (mg/dL) 192 H 182 H 202 H Plasma Lactic Acid Qasim AST Alkaline Phosphatase C-Reactive Protein Total Protein Albumin Urine Protein Urine Glucose (UA) 07/20/20 07/20/20 07/20/20 08:08 08:26 08:26 WBC 16.7 H RBC 4.10 L Hgb 12.3 L Hct MCHC 30.5 L Neutrophils # 15.4 H Lymphocytes # 0.9 L ESR Sodium Chloride 112 H Carbon Dioxide 19 L BUN 56 H Creatinine 2.14 H Glucose 178 H POC Glucose (mg/dL) 180 H Plasma Lactic Acid Qasim AST Alkaline Phosphatase C-Reactive Protein Total Protein Albumin Urine Protein Urine Glucose (UA) 07/20/20 07/20/20 07/20/20 10:42 11:54 13:58 WBC RBC Hgb Hct MCHC Neutrophils # Lymphocytes # ESR Sodium Chloride Carbon Dioxide BUN Creatinine Glucose POC Glucose (mg/dL) 172 H 157 H 182 H Plasma Lactic Acid Qasim AST Alkaline Phosphatase C-Reactive Protein Total Protein Albumin Urine Protein Urine Glucose (UA) Assessment and Plan Assessment: 85-year-old right-handed gentleman with medical history of ?stroke (with right hand weakness about 6-8 month ago), diabetes, 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 About two weeks prior to presentation, it started while sitting on the toilet for 3 hours and had a hard time getting up. He localized the pain to left lower back that radiates down the side of leg all way down to side of foot. The pain is constant and rates it 8 to 10/10. He does have urinary incontinence since end of last year but has not got worse since this back pain. Denies bowel issues. Left lower back pain radiating into the left extremity likely this is a Lumbar radiculopathy ARIELLE on CKI--improving Diabetes type 2. Peripheral neuropathy (Decreased sensation to pinprick over the bilateral distal extremities) Hypertension Legally blind over the right eye History of coronary artery disease. Plan: MRI of the lumbar spine was done on 07/19/2020 (prior MRI L-spine 09/27/2019) which is reported as exam is essentially stable. There is mild degenerative disc change at, intravertebral narrowing L3-L4 at, L4-L5 on the right. Facet arthropathic the change especially at the L5-S1. From the patient's presentation this seems a likely lumbar radiculopathy but the location of it seems the more to the side of the spine which the patient was sitting on the toilet for the 3 hours and not sure if this was the culprit or was incidental. I recommend possibly going up on gabapentin from 100 mg 3 times a day consider going up to the 200 mg twice a day and if that doesn't help go up to 300 mg 3 times a day. I note patient has kidney insufficiency but I don't believe this is a very significant high dose at and we'll see if this helps with his pain. Consider lidocaine patch I will recheck the hemoglobin A1c, vitamin B12, folate. Recommend patient getting the EMG with nerve conduction study as an outpatient. Currently patient is on Solu-Medrol 60 mg every 6 hours, [place] 7.5 mg every 6 hours when necessary, gabapentin 100 mg 3 times a day, Orthopedic recommend medical management. Orthopedic and the pain management team are on board. Acute kidney injury on chronic and kidney insufficiency we'll defer management to nephrology team. Regarding management of diabetes as well as hypertension we'll defer to the primary team. Thank you for the consult. Genaro Marin M.D. Neuro-hospitalist Time with Patient: Greater than 30
[2020-07-20 18:06] LABS: Glucose,Whole Blood 239 mg/dL (75-99)
[2020-07-20 20:04] LABS: Glucose,Whole Blood 187 mg/dL (75-99)
[2020-07-20 22:04] LABS: Glucose,Whole Blood 138 mg/dL (75-99)
[2020-07-20] MEDS: hydrOXYzine pamoate 25 MG CAP PO SCH (22:04)
[2020-07-20] MEDS: MELATONIN 3 MG TABLET PO SCH (22:05)
[2020-07-20] MEDS: buPROPion 75 MG TAB PO SCH (22:05)
[2020-07-20] MEDS: ATORVASTATIN 20 MG TAB PO SCH (22:05)
[2020-07-20] MEDS: FERROUS SULFATE 325 MG TAB PO SCH (22:05)
[2020-07-20] MEDS: TAMSULOSIN 0.4 MG CAP.ER.24H PO SCH (22:07)
[2020-07-21] MEDS: methylPREDNISolone SOD SUCCI 125 MG/2 ML VIAL IV SCH ×3 (00:02→12:09)
[2020-07-21 00:08] LABS: Glucose,Whole Blood 188 mg/dL (75-99)
[2020-07-21 00:36] LABS: Hemoglobin A1C 10.7 % (4.0-6.0)
[2020-07-21 01:00] LABS: Folate, Serum >24.0 ng/mL
[2020-07-21 02:38] LABS: Glucose,Whole Blood 212 mg/dL (75-99)
[2020-07-21 04:18] LABS: Glucose,Whole Blood 199 mg/dL (75-99)
[2020-07-21 05:47] LABS: Glucose,Whole Blood 200 mg/dL (75-99)
[2020-07-21 06:09] LABS: Glucose,Whole Blood 196 mg/dL (75-99)
[2020-07-21] MEDS: SENNOSIDES-DOCUSATE SODIUM 1 EACH TAB PO SCH ×2 (06:43→15:50)
[2020-07-21] MEDS: OXYBUTYNIN CHLORIDE 5 MG TAB PO SCH ×2 (06:44→15:49)
[2020-07-21] MEDS: LEVOTHYROXINE 88 MCG TAB PO SCH (06:44)
[2020-07-21] MEDS: APIXABAN 2.5 MG TABLET PO SCH ×2 (06:44→15:49)
[2020-07-21] MEDS: hydrALAZINE HCL 25 MG TAB PO SCH ×3 (06:44→21:04)
[2020-07-21] MEDS: INSULIN ASPART (NovoLOG) 100 UNIT/ML VIAL SQ SCH ×5 (06:45→21:07)
[2020-07-21] MEDS: FINASTERIDE 5 MG TAB PO SCH (06:45)
[2020-07-21] MEDS: DICYCLOMINE 10 MG CAP PO SCH ×3 (06:45→21:06)
[2020-07-21] MEDS: glipiZIDE 10 MG TAB PO SCH ×4 (06:45→21:06)
[2020-07-21] MEDS: PANTOPRAZOLE 40 MG TABLET PO SCH (06:45)
[2020-07-21] MEDS: GABAPENTIN 100 MG CAP PO SCH ×3 (06:45→21:05)
[2020-07-21] MEDS: POTASSIUM CHLORIDE ER 10 MEQ TAB.ER.PRT PO SCH (06:46)
[2020-07-21 08:19] LABS: Glucose,Whole Blood 189 mg/dL (75-99)
[2020-07-21 09:32] LABS: Calcium 8.5 mg/dL (8.4-10.2); Magnesium 2.2 mg/dL (1.6-2.3); Potassium 4.5 mmol/L (3.5-5.1)
[2020-07-21 10:12] LABS: Glucose,Whole Blood 303 mg/dL (75-99)
[2020-07-21 11:50] LABS: Glucose,Whole Blood 295 mg/dL (75-99)
[2020-07-21] MEDS: INSULIN DETEMIR (LEVEMIR) 100 UNIT/ML SYR SQ SCH (12:09)
[2020-07-21 13:22] VITALS: BMI 30.7
[2020-07-21] MEDS: HYDROcodone/APAP 7.5-325MG 1 EACH TAB PO PRN (14:15)
[2020-07-21] MEDS: CITALOPRAM HYDROBROMIDE 20 MG TAB PO SCH (15:49)
[2020-07-21] MEDS: ASPIRIN 325 MG TAB PO SCH (15:49)
--- NOTE | 2020-07-21 16:19 | P.PN ---
Subjective Progress Note Date: 07/21/20 Principal diagnosis: This is an 85-year-old male who was recently admitted with severe back pain radiating to the left lower leg with possible sciatica and is being closely monitored. Orthopedic surgery evaluated the patient recommending consult with anesthesia for possible steroid injection along with pain management which is currently pending at this time. Patient's blood sugars continued to be elevated and patient remains on insulin drip at this time. Will continue to monitor closely. Patient had an episode of acute chest pain and an EKG was done along with a troponin that was negative. Patient will continue on case monitor. Currently patient's is denying any chest pain, shortness of breath, or palpitations. Patient is afebrile. No reports of nausea or vomiting and patient is tolerating diet. Patient creatinine today slightly improved at 2.14 with a BUN of 56. Potassium is 4.9 and sodium is 138. Nephrology is following. 07/21/2020 Patient seen and evaluated and follow-up and continues to have some back pain with left lower extremity pain although states it is somewhat improved today. Patient currently working with PT/OT. Discussed with PT/OT along with the patient about possible ECF placement for rehab and patient adamantly refuses. Patient is agreeable to rehab in his own home but is refusing to go to an ECF for rehab. Case management following and will be working on discharge planning needs with the possibility of home care. Patient is currently on IV steroids and will decrease as patient's blood sugars continued to be elevated. Patient being transitioned to long-acting along with pre-meal insulin and sliding scale and will monitor closely as he was recently on an insulin drip. Patient states his blood sugars are normally in the 400s at home. Review of systems: Constitutional: No reports of fatigue, fever, or chills Cardiovascular: No reports of chest pain or palpitations Respiratory: No reports of shortness of breath or cough GI: No reports of nausea, vomiting, or diarrhea : No reports of dysuria or retention Neurovascular: Reports mild weakness, no reports of numbness All medications have been reviewed Objective - Vital Signs Vital signs: Vital Signs Temp 97.8 F 07/21/20 12:00 Pulse 53 L 07/21/20 12:00 Resp 19 07/21/20 12:00 BP 131/65 09/02/20 12:00 Pulse Ox 97 07/21/20 12:00 Intake & Output 07/20/20 07/21/20 07/21/20 18:59 06:59 18:59 Intake Total 33.150 188.583 513.125 Output Total 800 900 Balance -766.850 -711.417 513.125 Weight 94.5 kg Intake: Intake, IV Titration 33.150 188.583 33.125 Amount Insulin Regular 100 unit 33.150 38.583 33.125 In Sodium Chloride 0.9% 100 ml @ Titrate IV .Q0M [facility] Rx#:[id number] Sodium Chloride 0.9% 1, 150 000 ml @ 50 mls/hr IV . Q20H [facility] Rx#:[id number] Oral 480 Output: Urine 800 900 Other: Voiding Method Diaper Diaper Indwelling Catheter Indwelling Catheter # Bowel Movements 0 - Exam Gen: This is a 85-year-old male sitting up in in the chair, awake, alert and oriented 3, well-developed, well-nourished. HEENT: Head is atraumatic, normocephalic. Pupils equal, round. Sclerae is anicteric. NECK: Supple. No JVD. No lymphadenopathy. No thyromegaly. LUNGS: Sounds diminished at the bases with no wheezing or rhonchi noted. No intercostal retractions. HEART: S1, S2 are muffled ABDOMEN: Soft. Bowel sounds are present. No masses. No tenderness. EXTREMITIES: No pedal edema. No calf tenderness. NEUROLOGICAL: Patient is awake, alert and oriented x3. Diffusely weak - Labs CBC & Chem 7: 07/20/20 08:26 07/21/20 08:16 Labs: Abnormal Lab Results - Last 24 Hours (Table) 07/18/20 07/19/20 07/20/20 Range/Units 07:02 07:12 16:06 Chloride (98-107) mmol/L Carbon Dioxide (22-30) mmol/L BUN (9-20) mg/dL Creatinine (0.66-1.25) mg/dL Glucose (74-99) mg/dL POC Glucose (mg/dL) 281 H (75-99) mg/dL Hemoglobin A1c 10.7 H (4.0-6.0) % RBC Folate 1,003 H (280 - 791) ng/mL 07/20/20 07/20/20 07/20/20 Range/Units 18:04 20:03 22:02 Chloride (98-107) mmol/L Carbon Dioxide (22-30) mmol/L BUN (9-20) mg/dL Creatinine (0.66-1.25) mg/dL Glucose (74-99) mg/dL POC Glucose (mg/dL) 239 H 187 H 138 H (75-99) mg/dL Hemoglobin A1c (4.0-6.0) % RBC Folate (280 - 791) ng/mL 07/21/20 07/21/20 07/21/20 Range/Units 00:07 02:37 04:16 Chloride (98-107) mmol/L Carbon Dioxide (22-30) mmol/L BUN (9-20) mg/dL Creatinine (0.66-1.25) mg/dL Glucose (74-99) mg/dL POC Glucose (mg/dL) 188 H 212 H 199 H (75-99) mg/dL Hemoglobin A1c (4.0-6.0) % RBC Folate (280 - 791) ng/mL 07/21/20 07/21/20 07/21/20 Range/Units 05:44 06:08 08:16 Chloride 115 H (98-107) mmol/L Carbon Dioxide 19 L (22-30) mmol/L BUN 57 H (9-20) mg/dL Creatinine 1.96 H (0.66-1.25) mg/dL Glucose 154 H (74-99) mg/dL POC Glucose (mg/dL) 200 H 196 H (75-99) mg/dL Hemoglobin A1c (4.0-6.0) % RBC Folate (280 - 791) ng/mL 07/21/20 07/21/20 07/21/20 Range/Units 08:17 10:10 11:49 Chloride (98-107) mmol/L Carbon Dioxide (22-30) mmol/L BUN (9-20) mg/dL Creatinine (0.66-1.25) mg/dL Glucose (74-99) mg/dL POC Glucose (mg/dL) 189 H 303 H 295 H (75-99) mg/dL Hemoglobin A1c (4.0-6.0) % RBC Folate (280 - 791) ng/mL Assessment and Plan Assessment: Severe back pain with acute back pain radiating to the left lower back possibly sciatica, L5-S1 with possible severe degenerative joint disease L3-4 lesion in the CAT scan of the back Failure of outpatient treatment, severe gait dysfunction Diabetes mellitus type 2, hyperglycemia while on the insulin drip Acute renal failure with acute tubular necrosis with prerenal acute tubular necrosis Hyponatremia Normocytic anemia of chronic disease History of candidal urinary tract infection previously History of coronary artery disease Diabetes mellitus type 2 Gastroesophageal reflux disease Hypertension Hyperlipidemia History of myocardial infarction History of sleep apnea History of CPAP History of coronary artery disease, stent History of anxiety, depression, schizophrenia remote history of nicotine dependence Full code Recommendations and discussion: Recommend continue current medications, management, and symptomatic treatment. Multiple medical consultations following. Orthopedic surgery evaluated the patient and following. Neuro recommended changes in Neurontin along with EMG with nerve conduction study in the outpatient setting. Continue to monitor blood sugars closely as insulin drip has now been discontinued and patient will transition to sliding scale along with long-acting and pre-meal insulins. Will repeat a.m. labs. Further recommendations to follow. Case management following and working with the patient about possible discharge planning needs as patient is refusing ECF rehab placement but is agreeable to home care with rehab in the home setting.
--- NOTE | 2020-07-21 17:14 | PN ---
PROGRESS NOTE Patient is seen for followup for chronic kidney disease. He was admitted with chronic back pain. Renal function is stable with some improvement in creatinine down to 1.9 from 2.45 on initial admission. Patient was maintained on IV hydration, which is now discontinued. He has been eating well. PHYSICAL EXAMINATION: On examination today patient is comfortable. He is trying to take a few steps with Physical Therapy. Blood pressure this morning 123/69, heart rate 62 per minute. He is afebrile. EXAMINATION OF THE HEART: S1 and S2. EXAMINATION OF LUNGS: Bilateral breath sounds are heard. ABDOMEN: Soft, non-tender. Examination of lower extremities shows trace edema bilaterally. BUFFET MANAGER exam is grossly intact. LABS: Labs show sodium 138, potassium 4.5, chloride 115. CO2 is 19, BUN 57, creatinine 1.96. ASSESSMENT: 1. Acute kidney injury, prerenal, currently resolved. Continue to encourage increased oral intake. Patient is off of his home dose of Lasix. 2. Secondary hyperparathyroidism and chronic kidney disease mineral bone disease, maintained on Rocaltrol as outpatient and continued here. 3. Chronic back pain, being followed by Orthopedic and Pain Management. PLAN: Continue current medications. Continue to encourage increased oral intake. MMODL / IJN: [id number] /
[2020-07-21 17:36] LABS: Glucose,Whole Blood 152 mg/dL (75-99)
--- NOTE | 2020-07-21 18:26 | P.PN ---
Subjective Progress Note Date: 07/21/20 Patient was seen at bedside and he said he feels about the same as yesterday he still has this pain. The pain has not changed in severity the. Again it continues to shoot down the left side of the thigh all the way down to the left side of the foot. Upon asking the the patient with the pain originates from he pointed to the left hip area he did state that he does have the the side of the left lower back but originates the from the left hip and that's where he was pointing at. He denies any visual disturbance, any difficulty getting his words out to the. Objective - Vital Signs Vital signs: Vital Signs Temp 97.8 F 07/21/20 12:00 Pulse 53 L 07/21/20 12:00 Resp 19 07/21/20 12:00 BP 131/65 07/21/20 12:00 Pulse Ox 97 07/21/20 12:00 Intake & Output 07/20/20 07/21/20 07/21/20 18:59 06:59 18:59 Intake Total 33.150 188.583 513.125 Output Total 800 900 Balance -766.850 -711.417 513.125 Weight 94.5 kg Intake: Intake, IV Titration 33.150 188.583 33.125 Amount Insulin Regular 100 unit 33.150 38.583 33.125 In Sodium Chloride 0.9% 100 ml @ Titrate IV .Q0M [facility] Rx#:[id number] Sodium Chloride 0.9% 1, 150 000 ml @ 50 mls/hr IV . Q20H [facility] Rx#:[id number] Oral 480 Output: Urine 800 900 Other: Voiding Method Diaper Diaper Indwelling Catheter Indwelling Catheter # Bowel Movements 0 - Exam GENERAL: The patient is lying in bed and is in acute distress. CHEST: The heart rate is regular rate rhythm. No murmurs to auscultation. LUNG: Clear to auscultation bilaterally no wheezing noted throughout. Not labored breathing. NEUROLOGICAL: Higher mental function: The patient is awake, alert, oriented to self, place and time. Patient is following commands. No aphasia and no neglect. Cranial nerves: The pupils are round, equal and reactive to light and accommodation. 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 Extraocular movement is intact no nystagmus is noted. Facial sensation is normal to touch throughout. The facial strength is normal throughout. Hearing is normal bilaterally to hand rub. Tongue is midline and moved [id number] without any difficulty. No dysarthria is noted. Shoulder shrug is normal bilaterally. Motor: Gait is defered because of patient pain. Motor strength on the left was hard to assess because of patient. pain but I felt he had at least 4/5 but again it was limited because of the pain Otherwsie strength is 5/5. Both hand husker operator seemed equal, Normal tone and bulk. Sensation: Decrease to pinprick from proximal calf all way down to digits bilaterally and from mid-forearm all way down to digits of hand bilaterally. . Reflexes (right/left): 1+ throughout. Could not assess left lower extremity since patient was in pain and he refused to be assessed. Plantars are downgoing bilaterally Musculoskeletal: Patient was having pain around the left hip area or just above it that was tender he did have pain to the side of the left lower back but was mostly the left hip area that caused a lot of tenderness to touch. - Labs CBC & Chem 7: 07/20/20 08:26 07/21/20 08:16 Labs: Abnormal Lab Results - Last 24 Hours (Table) 07/18/20 07/19/20 07/20/20 Range/Units 07:02 07:12 18:04 Chloride (98-107) mmol/L Carbon Dioxide (22-30) mmol/L BUN (9-20) mg/dL Creatinine (0.66-1.25) mg/dL Glucose (74-99) mg/dL POC Glucose (mg/dL) 239 H (75-99) mg/dL Hemoglobin A1c 10.7 H (4.0-6.0) % RBC Folate 1,003 H (280 - 791) ng/mL 07/20/20 07/20/20 07/21/20 Range/Units 20:03 22:02 00:07 Chloride (98-107) mmol/L Carbon Dioxide (22-30) mmol/L BUN (9-20) mg/dL Creatinine (0.66-1.25) mg/dL Glucose (74-99) mg/dL POC Glucose (mg/dL) 187 H 138 H 188 H (75-99) mg/dL Hemoglobin A1c (4.0-6.0) % RBC Folate (280 - 791) ng/mL 07/21/20 07/21/20 07/21/20 Range/Units 02:37 04:16 05:44 Chloride (98-107) mmol/L Carbon Dioxide (22-30) mmol/L BUN (9-20) mg/dL Creatinine (0.66-1.25) mg/dL Glucose (74-99) mg/dL POC Glucose (mg/dL) 212 H 199 H 200 H (75-99) mg/dL Hemoglobin A1c (4.0-6.0) % RBC Folate (280 - 791) ng/mL 07/21/20 07/21/20 07/21/20 Range/Units 06:08 08:16 08:17 Chloride 115 H (98-107) mmol/L Carbon Dioxide 19 L (22-30) mmol/L BUN 57 H (9-20) mg/dL Creatinine 1.96 H (0.66-1.25) mg/dL Glucose 154 H (74-99) mg/dL POC Glucose (mg/dL) 196 H 189 H (75-99) mg/dL Hemoglobin A1c (4.0-6.0) % RBC Folate (280 - 791) ng/mL 07/21/20 07/21/20 07/21/20 Range/Units 10:10 11:49 17:28 Chloride (98-107) mmol/L Carbon Dioxide (22-30) mmol/L BUN (9-20) mg/dL Creatinine (0.66-1.25) mg/dL Glucose (74-99) mg/dL POC Glucose (mg/dL) 303 H 295 H 152 H (75-99) mg/dL Hemoglobin A1c (4.0-6.0) % RBC Folate (280 - 791) ng/mL Assessment and Plan Assessment: 85-year-old right-handed gentleman with medical history of ?stroke (with right hand weakness about 6-8 month ago), diabetes, 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 About two weeks prior to presentation, it started while sitting on the toilet for 3 hours and had a hard time getting up. He localized the pain to le ft lower back that radiates down the side of leg all way down to side of foot. The pain is constant and rates it 8 to 10/10. He does have urinary incontinence since end of last year but has not got worse since this back pain. Denies bowel issues. Left lower back pain radiating into the left extremity likely this is a Lumbar radiculopathy ARIELLE on CKI--improving Diabetes type 2. Peripheral neuropathy (Decreased sensation to pinprick over the bilateral distal extremities) Hypertension Legally blind over the right eye History of coronary artery disease. Plan: MRI of the lumbar spine was done on 07/19/2020 (prior MRI L-spine 09/27/2019) which is reported as exam is essentially stable. There is mild degenerative disc change at, intravertebral narrowing L3-L4 at, L4-L5 on the right. Facet arthropathic the change especially at the L5-S1. Patient had the CT abdomen as well as pelvis and there is no fracture seen on the CT of the pelvis. CT of the abdomen was reported as Reticulosis without acute aute diverticulitis. Cholelithiasis. From the patient's presentation this seems a likely lumbar radiculopathy but the location of it seems the more to the side of the spine which the patient was sitting on the toilet for the 3 hours and not sure if this was the culprit or was incidental. Orthopedic recommend medical management. Consider getting MRI of the pelvis to rule out bleed especially he is on anticoagulation. I recommend possibly going up on gabapentin from 100 mg 3 times a day consider going up to the 200 mg twice a day and if that doesn't help go up to 300 mg 3 times a day. I note patient has kidney insufficiency but I don't believe this is a very significant high dose at and we'll see if this helps with his pain. Consider lidocaine patch Hemoglobin A1c: 10.7 vitamin B12: 299, folate >24. Recommend patient getting the EMG with nerve conduction study as an outpatient. Currently patient is on Solu-Medrol 60 mg every 6 hours, [place] 7.5 mg every 6 hours when necessary, gabapentin 100 mg 3 times a day, Orthopedic and the pain management team are on board. Acute kidney injury on chronic and kidney insufficiency we'll defer management to nephrology team. Regarding management of diabetes as well as hypertension we'll defer to the primary team. Genaro Marin M.D. Neuro-hospitalist Time with Patient: Greater than 30
[2020-07-21 19:50] LABS: Glucose,Whole Blood 213 mg/dL (75-99)
[2020-07-21] MEDS: MELATONIN 3 MG TABLET PO SCH (21:04)
[2020-07-21] MEDS: FERROUS SULFATE 325 MG TAB PO SCH (21:04)
[2020-07-21] MEDS: buPROPion 75 MG TAB PO SCH (21:04)
[2020-07-21] MEDS: ATORVASTATIN 20 MG TAB PO SCH (21:05)
[2020-07-21] MEDS: hydrOXYzine pamoate 25 MG CAP PO SCH (21:05)
[2020-07-21] MEDS: TAMSULOSIN 0.4 MG CAP.ER.24H PO SCH (21:05)
[2020-07-21] MEDS: methylPREDNISolone SOD SUCCI 40 MG/ML 1 ML VIAL IV SCH (21:06)
[2020-07-22] MEDS: HYDROcodone/APAP 7.5-325MG 1 EACH TAB PO PRN ×2 (05:54→21:47)
[2020-07-22] MEDS: LEVOTHYROXINE 88 MCG TAB PO SCH (05:54)
[2020-07-22 07:19] LABS: Glucose,Whole Blood 157 mg/dL (75-99)
[2020-07-22] MEDS: hydrALAZINE HCL 25 MG TAB PO SCH ×3 (09:08→19:57)
[2020-07-22] MEDS: APIXABAN 2.5 MG TABLET PO SCH ×2 (09:08→16:15)
[2020-07-22] MEDS: glipiZIDE 10 MG TAB PO SCH ×4 (09:08→19:58)
[2020-07-22] MEDS: DICYCLOMINE 10 MG CAP PO SCH ×3 (09:08→21:47)
[2020-07-22] MEDS: SENNOSIDES-DOCUSATE SODIUM 1 EACH TAB PO SCH ×2 (09:09→16:15)
[2020-07-22] MEDS: GABAPENTIN 100 MG CAP PO SCH ×3 (09:09→21:47)
[2020-07-22] MEDS: methylPREDNISolone SOD SUCCI 40 MG/ML 1 ML VIAL IV SCH ×2 (09:09→19:58)
[2020-07-22] MEDS: OXYBUTYNIN CHLORIDE 5 MG TAB PO SCH ×2 (09:09→16:15)
[2020-07-22] MEDS: INSULIN ASPART (NovoLOG) 100 UNIT/ML VIAL SQ SCH ×7 (09:10→20:57)
[2020-07-22] MEDS: INSULIN DETEMIR (LEVEMIR) 100 UNIT/ML SYR SQ SCH (09:10)
[2020-07-22] MEDS: PANTOPRAZOLE 40 MG TABLET PO SCH (09:11)
[2020-07-22] MEDS: FINASTERIDE 5 MG TAB PO SCH (09:11)
[2020-07-22] MEDS: POTASSIUM CHLORIDE ER 10 MEQ TAB.ER.PRT PO SCH (09:11)
[2020-07-22] MEDS: HYDROmorphone 0.5 MG/0.5 ML SYRINGE IVP PRN (09:18)
[2020-07-22 10:58] LABS: Glucose,Whole Blood 148 mg/dL (75-99)
--- NOTE | 2020-07-22 11:37 | PN ---
PROGRESS NOTE Patient is seen for followup for chronic kidney disease and mild acute kidney injury on initial admission. He has been admitted for acute worsening back pain which is currently improving. PHYSICAL EXAMINATION: On examination today, blood pressure was 153/67, heart rate 54 per minute, he is afebrile. Examination of the heart S1, S2. Examination of the lungs, bilateral breath sounds are heard. Abdomen is soft, nontender. Examination of the lower extremities shows trace edema bilaterally. HIGH SPEED WARPER TENDER exam grossly intact. LABS: Show yesterday sodium 138, potassium 4.5, BUN 57, creatinine 1.96. ASSESSMENT: 1. Acute kidney injury, prerenal currently improved. I will resume his oral Lasix as patient is eating much better. 2. CKD mineral bone disorder maintained on Rocaltrol. 3. Chronic back pain with worsening and severe acute back pain on admission, currently improving, being followed by Orthopedic and pain management. PLAN: Resume home dose of oral Lasix tomorrow. Check labs in a.m. MMODL / IJN: [id number] /
[2020-07-22 11:54] LABS: Calcium 8.7 mg/dL (8.4-10.2); Potassium 4.7 mmol/L (3.5-5.1)
--- NOTE | 2020-07-22 13:07 | P.PN ---
Subjective Progress Note Date: 07/22/20 Principal diagnosis: This is an 85-year-old male who was recently admitted with severe back pain radiating to the left lower leg with possible sciatica and is being closely monitored. Orthopedic surgery evaluated the patient recommending consult with anesthesia for possible steroid injection along with pain management which is currently pending at this time. Patient's blood sugars continued to be elevated and patient remains on insulin drip at this time. Will continue to monitor closely. Patient had an episode of acute chest pain and an EKG was done along with a troponin that was negative. 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 Currently patient's is denying any chest pain, shortness of breath, or palpitations. Patient is afebrile. No reports of nausea or vomiting and patient is tolerating diet. Patient creatinine today slightly improved at 2.14 with a BUN of 56. Potassium is 4.9 and sodium is 138. Nephrology is following. 07/21/2020 Patient seen and evaluated and follow-up and continues to have some back pain with left lower extremity pain although states it is somewhat improved today. Patient currently working with PT/OT. Discussed with PT/OT along with the patient about possible ECF placement for rehab and patient adamantly refuses. Patient is agreeable to rehab in his own home but is refusing to go to an ECF for rehab. Case management following and will be working on discharge planning needs with the possibility of home care. Patient is currently on IV steroids and will decrease as patient's blood sugars continued to be elevated. Patient being transitioned to long-acting along with pre-meal insulin and sliding scale and will monitor closely as he was recently on an insulin drip. Patient states his blood sugars are normally in the 400s at home. Review of systems: Constitutional: No reports of fatigue, fever, or chills Cardiovascular: No reports of chest pain or palpitations Respiratory: No reports of shortness of breath or cough GI: No reports of nausea, vomiting, or diarrhea : No reports of dysuria or retention Neurovascular: Reports mild weakness, no reports of numbness All medications have been reviewed 07/22/2020 Patient is seen and evaluated in follow-up and continues to have some lower back pain along with left-sided hip and lower abdominal discomfort states has slightly improved although is continuing to have severe gait dysfunction and weakness due to pain. Multiple medical consultations including neuro, orthopedic surgery, pain management following. Discussed with neuro and recommending an MRI of the pelvis as he continues to pinpoint his pain being on the left side that radiates to his lower abdomen in the pelvic region. Will await MRI report. Creatinine continues to be elevated at 2.28 with a BUN of 68 and nephrology is following. Patient will resumed on oral Lasix home dose after tomorrow. Will repeat a.m. labs. Case management and social work following as patient continues to require rehab although is refusing and arrangements have been made for home care with continued PT/OT in the home setting. Will continue to monitor closely. Patient currently denies any chest pain, shortness of breath, or palpitations. Patient is afebrile. No reports of nausea or vomiting noted and patient is tolerating diet. Objective - Vital Signs Vital signs: Vital Signs Temp 97.7 F 07/22/20 11:51 Pulse 56 L 07/22/20 11:51 Resp 17 07/22/20 11:51 BP 145/60 07/22/20 11:51 Pulse Ox 97 07/22/20 11:51 Intake & Output 07/21/20 07/22/20 07/22/20 18:59 06:59 18:59 Intake Total 513.125 890 Output Total 600 875 Balance -86.875 15 Weight 94.5 kg Intake: Intake, IV Titration 33.125 Amount Insulin Regular 100 unit 33.125 In Sodium Chloride 0.9% 100 ml @ Titrate IV .Q0M [facility] Rx#:[id number] Oral 480 890 Output: Urine 600 875 Uretheral (Lamas) 600 Other: Voiding Method Indwelling Catheter - Exam Gen: This is a 85-year-old male sitting up in in the chair, awake, alert and oriented 3, well-developed, well-nourished. HEENT: Head is atraumatic, normocephalic. Pupils equal, round. Sclerae is anicteric. NECK: Supple. No JVD. No lymphadenopathy. No thyromegaly. LUNGS: Sounds diminished at the bases with no wheezing or rhonchi noted. No intercostal retractions. HEART: S1, S2 are muffled ABDOMEN: Soft. Bowel sounds are present. No masses. No tenderness. EXTREMITIES: No pedal edema. No calf tenderness. NEUROLOGICAL: Patient is awake, alert and oriented x3. Diffusely weak - Labs CBC & Chem 7: 07/20/20 08:26 07/22/20 10:48 Labs: Abnormal Lab Results - Last 24 Hours (Table) 07/21/20 07/21/20 07/22/20 Range/Units 17:28 19:48 07:18 Chloride (98-107) mmol/L BUN (9-20) mg/dL Creatinine (0.66-1.25) mg/dL Glucose (74-99) mg/dL POC Glucose (mg/dL) 152 H 213 H 157 H (75-99) mg/dL 07/22/20 07/22/20 Range/Units 10:48 10:58 Chloride 113 H (98-107) mmol/L BUN 68 H (9-20) mg/dL Creatinine 2.28 H (0.66-1.25) mg/dL Glucose 139 H (74-99) mg/dL POC Glucose (mg/dL) 148 H (75-99) mg/dL Assessment and Plan Assessment: Severe back pain with acute back pain radiating to the left lower back possibly sciatica, L5-S1 with possible severe degenerative joint disease L3-4 lesion in the CAT scan of the back Failure of outpatient treatment, severe gait dysfunction Diabetes mellitus type 2, hyperglycemia was on insulin drip Acute renal failure with acute tubular necrosis with prerenal acute tubular necrosis Hyponatremia Normocytic anemia of chronic disease History of candidal urinary tract infection previously History of coronary artery disease Diabetes mellitus type 2 Gastroesophageal reflux disease Hypertension Hyperlipidemia History of myocardial infarction History of sleep apnea History of CPAP History of coronary artery disease, stent History of anxiety, depression, schizophrenia remote history of nicotine dependence Full code Recommendations and discussion: Recommend continue current medications, management, and symptomatic treatment. Multiple medical consultations following. Orthopedic surgery evaluated the patient and following. Neuro recommended changes in Neurontin along with EMG with nerve conduction study in the outpatient setting. Will obtain an MRI of the pelvis as patient continues to have severe discomfort and pain in this region. Continue to monitor blood sugars closely. Will repeat a.m. labs. Further recommendations to follow. Case management following and working with the patient about possible discharge planning needs as patient is refusing ECF rehab placement but is agreeable to home care with rehab in the home setting.
--- NOTE | 2020-07-22 14:14 | MR ---
EXAMINATION TYPE: MR pelvis wo con DATE OF EXAM: 07/22/2020 COMPARISON: None HISTORY: lower back/ abdominal pain Standard multiplanar, multisequence MRI departmental protocol Multiplanar, multisequence images of the pelvis were acquired. Diffusion weighted imaging was perform ed. Examination is limited given extensive artifact from patient motion and bowel activity. FINDINGS: Osseous structures appear to be intact without evidence for fracture or bony lesion. Degenerative king nges lumbar spine described on the recent MRI of the lumbar spine. Lamas catheter is seen within the urinary bladder. No evidence for pelvic mass or free fluid. No inflammatory process seen. IMPRESSION: Limited evaluation however no definite abnormality of the pelvis is appreciated at this time.
[2020-07-22] MEDS: CITALOPRAM HYDROBROMIDE 20 MG TAB PO SCH (16:15)
[2020-07-22] MEDS: ASPIRIN 325 MG TAB PO SCH (16:15)
[2020-07-22 17:06] LABS: Glucose,Whole Blood 118 mg/dL (75-99)
[2020-07-22] MEDS: MELATONIN 3 MG TABLET PO SCH (19:58)
[2020-07-22] MEDS: FERROUS SULFATE 325 MG TAB PO SCH (19:58)
[2020-07-22] MEDS: TAMSULOSIN 0.4 MG CAP.ER.24H PO SCH (19:58)
[2020-07-22] MEDS: buPROPion 75 MG TAB PO SCH (19:58)
[2020-07-22] MEDS: hydrOXYzine pamoate 25 MG CAP PO SCH (19:58)
[2020-07-22] MEDS: ATORVASTATIN 20 MG TAB PO SCH (19:58)
--- NOTE | 2020-07-22 20:10 | P.PN ---
Subjective Progress Note Date: 07/22/20 Early in the morning I spoke with the primary team regarding the my concern that the patient was pointing to his left hip and recommended MRI of the pelvis to rule out any bleed especially that he is on anticoagulation that is not seen on the CT of the pelvis. And it was reported as limited evaluation however no definite of abnormality of the pelvis is appreciated this time. Upon seeing the patient in the afternoon he says that the his pain, and from the left hip/lower back is about a 3 which is better compared to his previous days. Sometimes occasionally radiates down but overall he feels better. Objective - Vital Signs Vital signs: Vital Signs Temp 97.7 F 07/22/20 11:51 Pulse 56 L 07/22/20 11:51 Resp 17 07/22/20 11:51 BP 145/60 07/22/20 11:51 Pulse Ox 97 07/22/20 11:51 Intake & Output 07/22/20 07/22/20 07/23/20 06:59 18:59 06:59 Intake Total 890 600 Output Total 875 600 Balance 15 0 Intake: Oral 890 600 Output: Urine 875 600 Other: Voiding Method Indwelling Catheter Indwelling Catheter - Exam GENERAL: The patient is lying in bed and is in acute distress. CHEST: The heart rate is regular rate rhythm. No murmurs to auscultation. LUNG: Clear to auscultation bilaterally no wheezing noted throughout. Not l abored breathing. NEUROLOGICAL: Higher mental function: The patient is awake, alert, oriented to self, place and time. Patient is following commands. No aphasia and no neglect. Cranial nerves: The pupils are round, equal and reactive to light and accommodation. 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 Extraocular movement is intact no nystagmus is noted. Facial sensation is normal to touch throughout. The facial strength is normal throughout. Hearing is normal bilaterally to hand rub. Tongue is midline and moved [id number] without any difficulty. No dysarthria is noted. Shoulder shrug is normal bilaterally. Motor: Gait is defered because of patient pain. Motor strength on the left was hard to assess because of patient. pain but I felt he had at least 4/5 but again it was limited because of the pain Otherwsie strength is 5/5. Both hand rock contractor seemed equal, Normal tone and bulk. Sensation: Decrease to pinprick from proximal calf all way down to digits bilaterally and from mid-forearm all way down to digits of hand bilaterally. . Reflexes (right/left): 1+ throughout. Could not assess left lower extremity since patient was in pain and he refused to be assessed. Plantars are downgoing bilaterally Musculoskeletal: Tenderness on the left hip. - Labs CBC & Chem 7: 07/20/20 08:26 07/22/20 10:48 Labs: Abnormal Lab Results - Last 24 Hours (Table) 07/22/20 07/22/20 07/22/20 Range/Units 07:18 10:48 10:58 Chloride 113 H (98-107) mmol/L BUN 68 H (9-20) mg/dL Creatinine 2.28 H (0.66-1.25) mg/dL Glucose 139 H (74-99) mg/dL POC Glucose (mg/dL) 157 H 148 H (75-99) mg/dL 07/22/20 Range/Units 17:05 Chloride (98-107) mmol/L BUN (9-20) mg/dL Creatinine (0.66-1.25) mg/dL Glucose (74-99) mg/dL POC Glucose (mg/dL) 118 H (75-99) mg/dL Assessment and Plan Assessment: 85-year-old right-handed gentleman with medical history of ?stroke (with right hand weakness about 6-8 month ago), diabetes, 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 About two weeks prior to presentation, it started while sitting on the toilet for 3 hours and had a hard time getting up. He localized the pain to left lower back that radiates down the side of leg all way down to side of foot. The pain is constant and rates it 8 to 10/10. He does have urinary incontinence since end of last year but has not got worse since this back pain. Denies bowel issues. Left lower back pain radiating into the left extremity likely this is a Lumbar radiculopathy ARIELLE on [facility]--improving Diabetes type 2. Peripheral neuropathy (Decreased sensation to pinprick over the bilateral distal extremities) Hypertension Legally blind over the right eye History of coronary artery disease. Plan: MRI of the lumbar spine was done on 07/19/2020 (prior MRI L-spine 09/27/2019) which is reported as exam is essentially stable. There is mild degenerative disc change at, intravertebral narrowing L3-L4 at, L4-L5 on the right. Facet arthropathic the change especially at the L5-S1. Patient had the CT abdomen as well as pelvis and there is no fracture seen on the CT of the pelvis. CT of the abdomen was reported as Reticulosis without acute aute diverticulitis. Cholelithiasis. From the patient's presentation this seems a likely lumbar radiculopathy but the location of it seems the more to the side of the spine which the patient was sitting on the toilet for the 3 hours and not sure if this was the culprit or was incidental. Orthopedic recommend medical management. MRI Pelvis and it was reported as limited evaluation however no definite of abnormality of the pelvis is appreciated this time. I recommend possibly going up on gabapentin from 100 mg 3 times a day consider going up to the 200 mg twice a day and if that doesn't help go up to 300 mg 3 times a day. I note patient has kidney insufficiency but I don't believe this is a very significant high dose at and we'll see if this helps with his pain. Consider lidocaine patch Hemoglobin A1c: 10.7 vitamin B12: 299, folate >24. Recommend patient getting the EMG with nerve conduction study as an outpatient. Currently patient is on Solu-Medrol 60 mg every 6 hours, Tripp 7.5 mg every 6 hours when necessary, gabapentin 100 mg 3 times a day, Orthopedic and the pain management team are on board. Acute kidney injury on chronic and kidney insufficiency we'll defer management to nephrology team. Regarding management of diabetes as well as hypertension we'll defer to the primary team. Genaro Marin M.D. Neuro-hospitalist Time with Patient: Greater than 30
[2020-07-22 20:21] LABS: Glucose,Whole Blood 106 mg/dL (75-99)
[2020-07-23] MEDS ORDERED: METOPROLOL TARTRATE 50 MG TAB PO STA (03:43)
[2020-07-23] MEDS: LEVOTHYROXINE 88 MCG TAB PO SCH (05:56)
[2020-07-23 07:06] LABS: Glucose,Whole Blood 85 mg/dL (75-99)
[2020-07-23] MEDS: INSULIN ASPART (NovoLOG) 100 UNIT/ML VIAL SQ SCH ×6 (07:09→21:38)
[2020-07-23] MEDS: PANTOPRAZOLE 40 MG TABLET PO SCH (07:49)
[2020-07-23] MEDS: SENNOSIDES-DOCUSATE SODIUM 1 EACH TAB PO SCH ×2 (07:49→15:54)
[2020-07-23] MEDS: glipiZIDE 10 MG TAB PO SCH ×4 (07:49→21:30)
[2020-07-23] MEDS: METOPROLOL TARTRATE 50 MG TAB PO SCH ×2 (07:50→21:53)
[2020-07-23] MEDS: HYDROcodone/APAP 7.5-325MG 1 EACH TAB PO PRN ×2 (07:50→15:57)
[2020-07-23] MEDS: POTASSIUM CHLORIDE ER 10 MEQ TAB.ER.PRT PO SCH (07:50)
[2020-07-23] MEDS: methylPREDNISolone SOD SUCCI 40 MG/ML 1 ML VIAL IV SCH ×2 (07:50→21:39)
[2020-07-23] MEDS: FINASTERIDE 5 MG TAB PO SCH (07:51)
[2020-07-23] MEDS: DICYCLOMINE 10 MG CAP PO SCH ×3 (07:51→21:34)
[2020-07-23] MEDS: INSULIN DETEMIR (LEVEMIR) 100 UNIT/ML SYR SQ SCH (07:51)
[2020-07-23] MEDS: OXYBUTYNIN CHLORIDE 5 MG TAB PO SCH (07:51)
[2020-07-23] MEDS: hydrALAZINE HCL 25 MG TAB PO SCH ×3 (07:51→21:28)
[2020-07-23] MEDS: APIXABAN 2.5 MG TABLET PO SCH ×2 (07:51→15:54)
[2020-07-23] MEDS: GABAPENTIN 100 MG CAP PO SCH ×3 (07:52→21:34)
[2020-07-23] MEDS: risperiDONE 0.5 MG TAB PO SCH (10:36)
[2020-07-23 10:50] LABS: Calcium 8.8 mg/dL (8.4-10.2); Potassium 5.1 mmol/L (3.5-5.1)
[2020-07-23 11:03] LABS: Appearance,Urine Cloudy (Clear); Bilirubin,Urine Negative (Negative); Blood,Urine Moderate (Negative); Budding Yeast,Urine Few /hpf; Color,Urine Yellow; Glucose,Urine (UA) Negative (Negative); Granular Casts,Urine 8 /lpf (0); Hyaline Casts,Urine 8 /lpf (0-2); Ketones,Urine Negative (Negative); Leukocyte Esterase,Urine Large (Negative); Mucus,Urine Rare /hpf; Nitrite,Urine Negative (Negative); PH, Urine 5.5 (5.0-8.0); Protein,Urine 2+ (Negative); RBC,Urine >182 /hpf (0-5); Specific Gravity,Urine 1.019 (1.001-1.035); Squamous Epithelial Cell,Urine 1 /hpf (0-4); Urobilinogen,Urine <2.0 mg/dL (<2.0); WBC,Urine 136 /hpf (0-5)
[2020-07-23 11:23] LABS: Glucose,Whole Blood 244 mg/dL (75-99)
--- NOTE | 2020-07-23 14:05 | P.PN ---
Subjective Progress Note Date: 07/23/20 Principal diagnosis: This is an 85-year-old male who was recently admitted with severe back pain radiating to the left lower leg with possible sciatica and is being closely monitored. Orthopedic surgery evaluated the patient recommending consult with anesthesia for possible steroid injection along with pain management which is currently pending at this time. Patient's blood sugars continued to be elevated and patient remains on insulin drip at this time. Will continue to monitor closely. Patient had an episode of acute chest pain and an EKG was done along with a troponin that was negative. Patient will continue on surgical dental assistant. Currently patient's is denying any chest pain, shortness of breath, or palpitations. Patient is afebrile. No reports of nausea or vomiting and patient is tolerating diet. Patient creatinine today slightly improved at 2.14 with a BUN of 56. Potassium is 4.9 and sodium is 138. Nephrology is following. 07/21/2020 Patient seen and evaluated and follow-up and continues to have some back pain with left lower extremity pain although states it is somewhat improved today. Patient currently working with PT/OT. Discussed with PT/OT along with the patient about possible ECF placement for rehab and patient adamantly refuses. Patient is agreeable to rehab in his own home but is refusing to go to an ECF for rehab. Case management following and will be working on discharge planning needs with the possibility of home care. Patient is currently on IV steroids and will decrease as patient's blood sugars continued to be elevated. Patient being transitioned to long-acting along with pre-meal insulin and sliding scale and will monitor closely as he was recently on an insulin drip. Patient states his blood sugars are normally in the 400s at home. Review of systems: Constitutional: No reports of fatigue, fever, or chills Cardiovascular: No reports of chest pain or palpitations Respiratory: No reports of shortness of breath or cough GI: No reports of nausea, vomiting, or diarrhea : No reports of dysuria or retention Neurovascular: Reports mild weakness, no reports of numbness All medications have been reviewed 07/22/2020 Patient is seen and evaluated in follow-up and continues to have some lower back pain along with left-sided hip and lower abdominal discomfort states has slightly improved although is continuing to have severe gait dysfunction and weakness due to pain. Multiple medical consultations including neuro, orthopedic surgery, pain management following. Discussed with neuro and recommending an MRI of the pelvis as he continues to pinpoint his pain being on the left side that radiates to his lower abdomen in the pelvic region. Will await MRI report. Creatinine continues to be elevated at 2.28 with a BUN of 68 and nephrology is following. Patient will resumed on oral Lasix home dose after tomorrow. Will repeat a.m. labs. Case management and social work following as patient continues to require rehab although is refusing and arrangements have been made for home care with continued PT/OT in the home setting. Will continue to monitor closely. Patient currently denies any chest pain, shortness of breath, or palpitations. Patient is afebrile. No reports of nausea or vomiting noted and patient is tolerating diet. 07/23/2020 Patient is seen and evaluated and follow-up and continues to state that his back pain is moderate to severe and having difficulties with gait and mobility. Patient is slightly more confused today and discussed with who states he seems to get this way when not taking his risperidone. This was resumed. IV Dilaudid along with Ativan was also discontinued. She does have an indwelling Lamas catheter and a urinalysis was done showing a large amount of leukocytes and will initiate IV ceftriaxone while awaiting urine culture finalization. Patient underwent MRI of the pelvis yesterday showing a limited evaluation however no definite abnormality of the pelvis appreciated at this time along with no evidence of fracture or bony lesions. Patient also having mildly elevated heart rate in the 110's and currently denies any chest pain or palpitations. Patient is maintained on metoprolol 50 mg twice daily and will continue at this time. Will continue to monitor vital signs and labs closely. Creatinine continues to be elevated and is currently 2.49 with a BUN of 67. Current sodium is 137 and potassium is 5.1. Nephrology is following. Patient currently maintained on sliding scale along with long-acting and will continue at this time. Pre-meal insulins have been discontinued as blood sugars have been better controlled. Case management and social work following as patient continues to refuse rehab although they are making arrangements for home care in the outpatient setting. Will continue to monitor closely. She denies any chest pain, shortness of breath, or palpitations. Patient is afebrile. No reports of nausea or vomiting and patient is tolerating diet. Objective - Vital Signs Vital signs: Vital Signs Temp 97.8 F 07/23/20 11:13 Pulse 121 H 07/23/20 11:13 Resp 20 07/23/20 11:13 BP 139/83 07/23/20 11:13 Pulse Ox 97 07/23/20 11:13 Intake & Output 07/22/20 07/23/20 07/23/20 18:59 06:59 18:59 Intake Total 600 830 Output Total 600 1600 400 Balance 0 -770 -400 Weight 94.5 kg Intake: Oral 600 830 Output: Urine 600 1600 400 Uretheral (Lamas) 1000 Other: Voiding Method Indwelling Catheter Indwelling Catheter Indwelling Catheter - Exam Gen: This is a 85-year-old male sitting up in bed, awake, alert and oriented 2- 3, well-developed, well-nourished. Slightly confused HEENT: Head is atraumatic, normocephalic. Pupils equal, round. Sclerae is anicteric. NECK: Supple. No JVD. No lymphadenopathy. No thyromegaly. LUNGS: Sounds diminished at the bases with no wheezing or rhonchi noted. No intercostal retractions. HEART: S1, S2 are muffled ABDOMEN: Soft. Bowel sounds are present. No masses. No tenderness. EXTREMITIES: No pedal edema. No calf tenderness. NEUROLOGICAL: Patient is awake, alert and oriented x2. Confused. Diffusely weak - Labs CBC & Chem 7: 07/20/20 08:26 07/23/20 10:06 Labs: Abnormal Lab Results - Last 24 Hours (Table) 07/22/20 07/22/20 07/23/20 Range/Units 17:05 20:20 10:06 Chloride 113 H (98-107) mmol/L Carbon Dioxide 18 L (22-30) mmol/L BUN 67 H (9-20) mg/dL Creatinine 2.49 H (0.66-1.25) mg/dL Glucose 193 H (74-99) mg/dL POC Glucose (mg/dL) 118 H 106 H (75-99) mg/dL Urine Protein (Negative) Urine Blood (Negative) Ur Leukocyte Esterase (Negative) Urine RBC (0-5) /hpf Urine WBC (0-5) /hpf Urine WBC Clumps (None) /hpf Hyaline Casts (0-2) /lpf Urine Mucus (None) /hpf Urine Yeast (Budding) (None) /hpf 07/23/20 07/23/20 Range/Units 10:45 11:15 Chloride (98-107) mmol/L Carbon Dioxide (22-30) mmol/L BUN (9-20) mg/dL Creatinine (0.66-1.25) mg/dL Glucose (74-99) mg/dL POC Glucose (mg/dL) 244 H (75-99) mg/dL Urine Protein 2+ H (Negative) Urine Blood Moderate H (Negative) Ur Leukocyte Esterase Large H (Negative) Urine RBC >182 H (0-5) /hpf Urine WBC 136 H (0-5) /hpf Urine WBC Clumps Few H (None) /hpf Hyaline Casts 8 H (0-2) /lpf Urine Mucus Rare H (None) /hpf Urine Yeast (Budding) Few H (None) /hpf Assessment and Plan Assessment: Severe back pain with acute back pain radiating to the left lower back possibly sciatica, L5-S1 with possible severe degenerative joint disease L3-4 lesion in the CAT scan of the back Possible acute urinary tract infection Failure of outpatient treatment, severe gait dysfunction Diabetes mellitus type 2, hyperglycemia was on insulin drip Acute renal failure with acute tubular necrosis with prerenal acute tubular necrosis Hyponatremia, improved Normocytic anemia of chronic disease History of candidal urinary tract infection previously History of coronary artery disease Diabetes mellitus type 2 Gastroesophageal reflux disease Hypertension Hyperlipidemia History of myocardial infarction History of sleep apnea History of CPAP History of coronary artery disease, stent History of anxiety, depression, schizophrenia remote history of nicotine dependence Full code Recommendations and discussion: Recommend continue current medications, management, and symptomatic treatment. Multiple medical consultations following. Orthopedic surgery evaluated the patient and following. Neuro recommended changes in Neurontin along with EMG with nerve conduction study in the outpatient setting. Urinalysis was done showing a large amount of leukocytes and will initiate IV ceftriaxone while awaiting for urine culture finalization. Patient confused today and risperidone home dose was resumed. Case management spoke with and she stated this occurs when he has not taken his meds. Continue to monitor blood sugars closely. Will repeat a.m. labs. Further recommendations to follow. Case management following and working with the patient about possible discharge planning needs as patient is refusing ECF rehab placement but is agreeable to home care with rehab in the home setting. Due to multiple complex medical issues, prognosis is guarded.
--- NOTE | 2020-07-23 14:58 | PN ---
PROGRESS NOTE Patient is seen for followup for chronic kidney disease. He was admitted with severe back pain which is now slightly improved; however, this morning patient was confused. He had been on Risperdal, which was not given here during his hospitalization and it is being restarted. PHYSICAL EXAMINATION: On examination today, blood pressure was 139/83, heart rate 120 per minute, he is afebrile. Examination of the heart, S1, S2. Examination of the lungs, bilateral breath sounds are heard. Abdomen is soft, nontender. Examination of the lower extremities shows no significant edema. LABS: Show sodium 137, potassium 5.1, chloride 113, CO2 is 18, BUN 67, serum creatinine 2.49. ASSESSMENT: 1. 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 Baseline creatinine 1.8-1.9 mg/dL. 2. Acute kidney injury, mostly prerenal. Patient did have some urine retention. He has an indwelling Lamas catheter, currently. 3. 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 4. Acute severe back pain, slowly improving. PLAN: Continue with the Lamas catheter for now. DC Ditropan. Continue with Flomax. Continue therapy. MMODL / IJN: [id number] /
[2020-07-23] MEDS: CITALOPRAM HYDROBROMIDE 20 MG TAB PO SCH (15:54)
[2020-07-23] MEDS: ASPIRIN 325 MG TAB PO SCH (15:54)
[2020-07-23 17:01] LABS: Glucose,Whole Blood 257 mg/dL (75-99)
--- NOTE | 2020-07-23 18:47 | P.PN ---
Subjective Progress Note Date: 07/23/20 Patient was seen at bedside and he said he is doing the same as yesterday. He feels his pain is about the same. Objective - Vital Signs Vital signs: Vital Signs Temp 98.3 F 07/23/20 16:03 Pulse 60 07/23/20 16:03 Resp 98 H 07/23/20 16:03 BP 155/72 07/23/20 16:03 Pulse Ox 97 07/23/20 11:13 Intake & Output 07/22/20 07/23/20 07/23/20 18:59 06:59 18:59 Intake Total 600 830 50 Output Total 600 1600 900 Balance 0 -770 -850 Weight 94.5 kg Intake: Intake, IV Titration 50 Amount cefTRIAXone 1 gm In 50 Sodium Chloride 0.9% 50 ml @ 100 mls/hr IVPB Q24H [facility] Rx#:[id number] Oral 600 830 Output: Urine 600 1600 900 Uretheral (Lamas) 1000 Other: Voiding Method Indwelling Catheter Indwelling Catheter Indwelling Catheter - Exam GENERAL: The patient is lying in bed and is in acute distress. CHEST: The heart rate is regular rate rhythm. No murmurs to auscultation. LUNG: Clear to auscultation bilaterally no wheezing noted throughout. Not labored breathing. NEUROLOGICAL: Higher mental function: The patient is awake, alert, oriented to self, place and time. Patient is following commands. No aphasia and no neglect. Cranial nerves: The pupils are round, equal and reactive to light and accommodation. 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 Extraocular movement is intact no nystagmus is noted. Facial sensation is normal to touch throughout. The facial strength is normal throughout. Hearing is normal bilaterally to hand rub. Tongue is midline and moved [id number] without any difficulty. No dysarthria is noted. Shoulder shrug is normal bilaterally. Motor: Gait is defered because of patient pain. Motor strength on the left was hard to assess because of patient. pain but I felt he had at least 4/5 but again it was limited because of the pain Otherwsie strength is 5/5. Both hand hospice art therapist seemed equal, Normal tone and bulk. Sensation: Decrease to pinprick from proximal calf all way down to digits bilaterally and from mid-forearm all way down to digits of hand bilaterally. . Reflexes (right/left): 1+ throughout. Could not assess left lower extremity since patient was in pain and he refused to be assessed. Plantars are downgoing bilaterally - Labs CBC & Chem 7: 07/20/20 08:26 07/23/20 10:06 Labs: Abnormal Lab Results - Last 24 Hours (Table) 07/22/20 07/23/20 07/23/20 Range/Units 20:20 10:06 10:45 Chloride 113 H (98-107) mmol/L Carbon Dioxide 18 L (22-30) mmol/L BUN 67 H (9-20) mg/dL Creatinine 2.49 H (0.66-1.25) mg/dL Glucose 193 H (74-99) mg/dL POC Glucose (mg/dL) 106 H (75-99) mg/dL Urine Protein 2+ H (Negative) Urine Blood Moderate H (Negative) Ur Leukocyte Esterase Large H (Negative) Urine RBC >182 H (0-5) /hpf Urine WBC 136 H (0-5) /hpf Urine WBC Clumps Few H (None) /hpf Hyaline Casts 8 H (0-2) /lpf Urine Mucus Rare H (None) /hpf Urine Yeast (Budding) Few H (None) /hpf 07/23/20 07/23/20 Range/Units 11:15 16:52 Chloride (98-107) mmol/L Carbon Dioxide (22-30) mmol/L BUN (9-20) mg/dL Creatinine (0.66-1.25) mg/dL Glucose (74-99) mg/dL POC Glucose (mg/dL) 244 H 257 H (75-99) mg/dL Urine Protein (Negative) Urine Blood (Negative) Ur Leukocyte Esterase (Negative) Urine RBC (0-5) /hpf Urine WBC (0-5) /hpf Urine WBC Clumps (None) /hpf Hyaline Casts (0-2) /lpf Urine Mucus (None) /hpf Urine Yeast (Budding) (None) /hpf Microbiology - Last 24 Hours (Table) 07/23/20 10:45 Urine Culture - Preliminary Urine,Voided Assessment and Plan Assessment: 85-year-old right-handed gentleman with medical history of ?stroke (with right hand weakness about 6-8 month ago), diabetes, 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 About two weeks prior to presentation, it started while sitting on the toilet for 3 hours and had a hard time getting up. He localized the pain to left lower back but at time it left hip that radiates down the side of leg all way down to side of foot. The pain is constant and rates it 8 to 10/10. He does have urinary incontinence since end of last year but has not got worse since this back pain. Denies bowel issues. Left lower back pain radiating into the left extremity likely Lumbar radiculopathy ARIELLE on [facility]--improving Diabetes type 2 Peripheral neuropathy (Decreased sensation to pinprick over the bilateral distal extremities) Hypertension Legally blind over the right eye History of coronary artery disease. Plan: MRI of the lumbar spine was done on 07/19/2020 (prior MRI L-spine 09/27/2019) which is reported as exam is essentially stable. There is mild degenerative disc change at, intravertebral narrowing L3-L4 at, L4-L5 on the right. Facet arthropathic the change especially at the L5-S1. Patient had the CT abdomen as well as pelvis and there is no fracture seen on the CT of the pelvis. CT of the abdomen was reported as Reticulosis without acute aute diverticulitis. Cholelithiasis. From the patient's presentation this seems a likely lumbar radiculopathy but the location of it seems the more to the side of the spine which the patient was sitting on the toilet for the 3 hours and not sure if this was the culprit or was incidental. Orthopedic recommend medical management. MRI Pelvis and it was reported as limited evaluation however no definite of abnormality of the pelvis is appreciated this time. I recommend possibly going up on gabapentin from 100 mg 3 times a day consider going up to the 200 mg twice a day and if that doesn't help go up to 300 mg 3 times a day. I note patient has kidney insufficiency but I don't believe this is a very significant high dose at and we'll see if this helps with his pain. Consider lidocaine patch Hemoglobin A1c: 10.7 vitamin B12: 299, folate >24. Recommend patient getting the EMG with nerve conduction study as an outpatient. Currently patient is on Solu-Medrol 60 mg every 6 hours, Ellerbe 7.5 mg every 6 hours when necessary, gabapentin 100 mg 3 times a day, Orthopedic and the pain management team are on board. Acute kidney injury on chronic and kidney insufficiency we'll defer management to nephrology team. Regarding management of diabetes as well as hypertension we'll defer to the primary team. There is no neurology service over the weekend. If needed the please contact via perfect serve. Genaro Marin M.D. Neuro-hospitalist Time with Patient: Greater than 30
[2020-07-23 20:41] LABS: Glucose,Whole Blood 230 mg/dL (75-99)
[2020-07-23] MEDS: ATORVASTATIN 20 MG TAB PO SCH (21:28)
[2020-07-23] MEDS: TAMSULOSIN 0.4 MG CAP.ER.24H PO SCH (21:29)
[2020-07-23] MEDS: buPROPion 75 MG TAB PO SCH (21:30)
[2020-07-23] MEDS: hydrOXYzine pamoate 25 MG CAP PO SCH (21:30)
[2020-07-24 06:26] LABS: Basophils % (A) 0 %; Eosinophils % (A) 0 %; HCT 40.6 % (39.0-53.0); HGB 12.3 gm/dL (13.0-17.5); Hypochromasia Slight; Lymphocytes # (A) 1.2 k/uL (1.0-4.8); Lymphocytes % (A) 10 %; MCHC 30.3 g/dL (31.0-37.0); MCV 98.9 fL (80.0-100.0); Monocytes # (A) 0.4 k/uL (0-1.0); Monocytes % (A) 3 %; Neutrophils % (A) 86 %; Platelet Count 224 k/uL (150-450); RDW 13.3 % (11.5-15.5); WBC 11.6 k/uL (3.8-10.6)
[2020-07-24] MEDS: LEVOTHYROXINE 88 MCG TAB PO SCH (06:33)
[2020-07-24 06:51] LABS: Calcium 9.1 mg/dL (8.4-10.2); Potassium 4.9 mmol/L (3.5-5.1)
[2020-07-24 07:14] LABS: Glucose,Whole Blood 175 mg/dL (75-99)
[2020-07-24] MEDS: HYDROcodone/APAP 7.5-325MG 1 EACH TAB PO PRN (07:41)
[2020-07-24] MEDS: POTASSIUM CHLORIDE ER 10 MEQ TAB.ER.PRT PO SCH (07:42)
[2020-07-24] MEDS: SENNOSIDES-DOCUSATE SODIUM 1 EACH TAB PO SCH ×2 (07:42→17:15)
[2020-07-24] MEDS: FINASTERIDE 5 MG TAB PO SCH (07:42)
[2020-07-24] MEDS: hydrALAZINE HCL 25 MG TAB PO SCH ×3 (07:42→19:16)
[2020-07-24] MEDS: PANTOPRAZOLE 40 MG TABLET PO SCH (07:43)
[2020-07-24] MEDS: DICYCLOMINE 10 MG CAP PO SCH ×3 (07:43→21:05)
[2020-07-24] MEDS: METOPROLOL TARTRATE 50 MG TAB PO SCH ×2 (07:43→21:05)
[2020-07-24] MEDS: risperiDONE 0.5 MG TAB PO SCH (07:43)
[2020-07-24] MEDS: GABAPENTIN 100 MG CAP PO SCH ×3 (07:43→21:05)
[2020-07-24] MEDS: APIXABAN 2.5 MG TABLET PO SCH ×2 (07:43→17:15)
[2020-07-24] MEDS: INSULIN ASPART (NovoLOG) 100 UNIT/ML VIAL SQ SCH ×4 (07:44→21:06)
[2020-07-24] MEDS: methylPREDNISolone SOD SUCCI 40 MG/ML 1 ML VIAL IV SCH ×2 (07:44→21:07)
[2020-07-24] MEDS: INSULIN DETEMIR (LEVEMIR) 100 UNIT/ML SYR SQ SCH (07:44)
[2020-07-24] MEDS: glipiZIDE 10 MG TAB PO SCH ×4 (07:45→21:05)
[2020-07-24 11:54] LABS: Glucose,Whole Blood 190 mg/dL (75-99)
[2020-07-24 16:24] LABS: Glucose,Whole Blood 73 mg/dL (75-99)
[2020-07-24 16:31] LABS: Glucose,Whole Blood 97 mg/dL (75-99)
--- NOTE | 2020-07-24 16:38 | P.PN ---
Subjective Progress Note Date: 07/24/20 Follow-up for chronic kidney disease. Objective - Vital Signs Vital signs: Vital Signs Temp 98.4 F 07/24/20 11:50 Pulse 70 07/24/20 11:50 Resp 16 07/24/20 11:50 BP 169/78 07/24/20 11:50 Pulse Ox 96 07/24/20 11:50 Intake & Output 07/23/20 07/24/20 07/24/20 18:59 06:59 18:59 Intake Total 50 150 620 Output Total 967 178 8227 Balance -791 -973 -614 Weight 94.5 kg Intake: Intake, IV Titration 50 Amount cefTRIAXone 1 gm In 50 Sodium Chloride 0.9% 50 ml @ 100 mls/hr IVPB Q24H [facility] Rx#:[id number] Oral 150 620 Output: Urine 270 543 8216 Uretheral (Lamas) 550 1600 Other: Voiding Method Indwelling Catheter Indwelling Catheter Indwelling Catheter - Exam No acute distress S1-S2 heard Lungs clear Lamas catheter good urine output No edema - Labs CBC & Chem 7: 07/24/20 05:36 07/24/20 05:36 Labs: Abnormal Lab Results - Last 24 Hours (Table) 07/23/20 07/23/20 07/24/20 Range/Units 16:52 20:39 05:36 WBC 11.6 H (3.8-10.6) k/uL RBC 4.10 L (4.30-5.90) m/uL Hgb 12.3 L (13.0-17.5) gm/dL MCHC 30.3 L (31.0-37.0) g/dL Neutrophils # 10.0 H (1.3-7.7) k/uL Chloride (98-107) mmol/L Carbon Dioxide (22-30) mmol/L BUN (9-20) mg/dL Creatinine (0.66-1.25) mg/dL Glucose (74-99) mg/dL POC Glucose (mg/dL) 257 H 230 H (75-99) mg/dL 07/24/20 07/24/20 07/24/20 Range/Units 05:36 07:12 11:53 WBC (3.8-10.6) k/uL RBC (4.30-5.90) m/uL Hgb (13.0-17.5) gm/dL MCHC (31.0-37.0) g/dL Neutrophils # (1.3-7.7) k/uL Chloride 113 H (98-107) mmol/L Carbon Dioxide 20 L (22-30) mmol/L BUN 69 H (9-20) mg/dL Creatinine 2.28 H (0.66-1.25) mg/dL Glucose 166 H (74-99) mg/dL POC Glucose (mg/dL) 175 H 190 H (75-99) mg/dL 07/24/20 Range/Units 16:17 WBC (3.8-10.6) k/uL RBC (4.30-5.90) m/uL Hgb (13.0-17.5) gm/dL MCHC (31.0-37.0) g/dL Neutrophils # (1.3-7.7) k/uL Chloride (98-107) mmol/L Carbon Dioxide (22-30) mmol/L BUN (9-20) mg/dL Creatinine (0.66-1.25) mg/dL Glucose (74-99) mg/dL POC Glucose (mg/dL) 73 L (75-99) mg/dL Microbiology - Last 24 Hours (Table) 07/23/20 10:45 Urine Culture - Preliminary Urine,Voided Presumptive Staph aureus Assessment and Plan Assessment: #1 chronic kidney disease stage IV secondary to nephrosclerosis with a baseline creatinine of 1.8-1.9 MG per DL. Creeping creatinine suspect new baseline. #2 acute kidney injury secondary to urinary retention status post Lamas. 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 Plan: #1 renal function stable continue to monitor. #2 Lamas care. Also on Flomax. #3 avoid nephrotoxic agents and hypotensive episodes.
[2020-07-24] MEDS: ASPIRIN 325 MG TAB PO SCH (17:15)
[2020-07-24] MEDS: CITALOPRAM HYDROBROMIDE 20 MG TAB PO SCH (17:16)
[2020-07-24] MEDS: TAMSULOSIN 0.4 MG CAP.ER.24H PO SCH (19:15)
[2020-07-24] MEDS: ATORVASTATIN 20 MG TAB PO SCH (19:16)
[2020-07-24 20:51] LABS: Glucose,Whole Blood 248 mg/dL (75-99)
[2020-07-24] MEDS: hydrOXYzine pamoate 25 MG CAP PO SCH (21:04)
[2020-07-24] MEDS: MELATONIN 3 MG TABLET PO SCH (21:05)
[2020-07-24] MEDS: buPROPion 75 MG TAB PO SCH (21:06)
[2020-07-24] MEDS: FERROUS SULFATE 325 MG TAB PO SCH (21:06)
[2020-07-25] MEDS: LEVOTHYROXINE 88 MCG TAB PO SCH (06:04)
[2020-07-25 06:54] LABS: Basophils % (A) 0 %; Eosinophils % (A) 0 %; HCT 37.1 % (39.0-53.0); HGB 11.5 gm/dL (13.0-17.5); Lymphocytes # (A) 1.1 k/uL (1.0-4.8); Lymphocytes % (A) 13 %; MCH 30.4 pg (25.0-35.0); MCV 98.2 fL (80.0-100.0); Mean Platelet Volume 7.6; Monocytes # (A) 0.4 k/uL (0-1.0); Monocytes % (A) 4 %; Neutrophils # (A) 7.2 k/uL (1.3-7.7); Neutrophils % (A) 82 %; Platelet Count 199 k/uL (150-450); RBC 3.78 m/uL (4.30-5.90); RDW 13.3 % (11.5-15.5); WBC 8.9 k/uL (3.8-10.6)
[2020-07-25 07:09] LABS: Calcium 8.5 mg/dL (8.4-10.2); Potassium 4.8 mmol/L (3.5-5.1)
[2020-07-25 09:13] LABS: Glucose,Whole Blood 159 mg/dL (75-99)
[2020-07-25] MEDS: hydrALAZINE HCL 25 MG TAB PO SCH ×3 (09:13→20:06)
[2020-07-25] MEDS: GABAPENTIN 100 MG CAP PO SCH ×3 (09:13→22:15)
[2020-07-25] MEDS: glipiZIDE 10 MG TAB PO SCH ×4 (09:13→20:05)
[2020-07-25] MEDS: PANTOPRAZOLE 40 MG TABLET PO SCH (09:13)
[2020-07-25] MEDS: DICYCLOMINE 10 MG CAP PO SCH ×3 (09:13→22:15)
[2020-07-25] MEDS: APIXABAN 2.5 MG TABLET PO SCH ×2 (09:13→15:56)
[2020-07-25] MEDS: POTASSIUM CHLORIDE ER 10 MEQ TAB.ER.PRT PO SCH (09:13)
[2020-07-25] MEDS: SENNOSIDES-DOCUSATE SODIUM 1 EACH TAB PO SCH ×2 (09:13→15:56)
[2020-07-25] MEDS: methylPREDNISolone SOD SUCCI 40 MG/ML 1 ML VIAL IV SCH ×2 (09:14→20:06)
[2020-07-25] MEDS: FINASTERIDE 5 MG TAB PO SCH (09:14)
[2020-07-25] MEDS: risperiDONE 0.5 MG TAB PO SCH (09:14)
[2020-07-25] MEDS: INSULIN DETEMIR (LEVEMIR) 100 UNIT/ML SYR SQ SCH (09:14)
[2020-07-25] MEDS: INSULIN ASPART (NovoLOG) 100 UNIT/ML VIAL SQ SCH ×4 (09:14→20:23)
[2020-07-25] MEDS: METOPROLOL TARTRATE 50 MG TAB PO SCH ×2 (09:14→20:06)
--- NOTE | 2020-07-25 11:04 | P.PN ---
Subjective Progress Note Date: 07/25/20 Follow-up for chronic kidney disease. Feels better. No nausea vomiting diarrhea. Objective - Vital Signs Vital signs: Vital Signs Temp 97.6 F 07/25/20 06:09 Pulse 60 07/25/20 06:09 Resp 18 07/25/20 06:09 BP 169/77 07/25/20 06:09 Pulse Ox 93 L 07/25/20 06:09 Intake & Output 07/24/20 07/25/20 07/25/20 18:59 06:59 18:59 Intake Total 620 Output Total 1600 675 Balance -980 -675 Intake: Oral 620 Output: Urine 1600 675 Uretheral (Lamas) 1600 Other: Voiding Method Indwelling Catheter Indwelling Catheter Indwelling Catheter - Exam No acute distress S1-S2 heard Lungs clear Lamas catheter good urine output No edema - Labs CBC & Chem 7: 07/25/20 06:13 07/25/20 06:13 Labs: Abnormal Lab Results - Last 24 Hours (Table) 07/24/20 07/24/20 07/24/20 Range/Units 11:53 16:17 20:43 RBC (4.30-5.90) m/uL Hgb (13.0-17.5) gm/dL Hct (39.0-53.0) % Chloride (98-107) mmol/L Carbon Dioxide (22-30) mmol/L BUN (9-20) mg/dL Creatinine (0.66-1.25) mg/dL Glucose (74-99) mg/dL POC Glucose (mg/dL) 190 H 73 L 248 H (75-99) mg/dL 07/25/20 07/25/20 07/25/20 Range/Units 06:13 06:13 09:10 RBC 3.78 L (4.30-5.90) m/uL Hgb 11.5 L (13.0-17.5) gm/dL Hct 37.1 L (39.0-53.0) % Chloride 113 H (98-107) mmol/L Carbon Dioxide 21 L (22-30) mmol/L BUN 63 H (9-20) mg/dL Creatinine 2.05 H (0.66-1.25) mg/dL Glucose 155 H (74-99) mg/dL POC Glucose (mg/dL) 159 H (75-99) mg/dL Microbiology - Last 24 Hours (Table) 07/23/20 10:45 Urine Culture - Final Urine,Voided Staphylococcus aureus Assessment and Plan Assessment: #1 chronic kidney disease stage IV secondary to nephrosclerosis with a baseline creatinine of 1.8-1.9 MG per DL. Creatinine stable. #2 acute kidney injury secondary to urinary retention status post Lamas. 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 Plan: #1 renal function stable continue to monitor. #2 Lamas care. Also on Flomax. #3 avoid nephrotoxic agents and hypotensive episodes.
[2020-07-25 12:02] LABS: Glucose,Whole Blood 253 mg/dL (75-99)
--- NOTE | 2020-07-25 13:02 | P.PN ---
Subjective Progress Note Date: 07/24/20 85-year-old male who was recently admitted with severe back pain radiating to the left lower leg with possible sciatica and is being closely monitored. Orthopedic surgery evaluated the patient recommending consult with anesthesia for possible steroid injection along with pain management which is currently pending at this time. Patient's blood sugars continued to be elevated and patient remains on insulin drip at this time. Will continue to monitor closely. Patient had an episode of acute chest pain and an EKG was done along with a troponin that was negative. 07/24/2020; Patient is seen and evaluated with son at bedside; son is concerned about patient being more confused Vital signs and labs are reviewed which are stable; white blood count remains elevated at 11.6; chemical profile revealed slight improvement in BUN/creatinine down to 69/2.28; blood glucose remained elevated between 155-253 MRI of the back has been reported and is negative for any acute abnormality; patient remains on IV Rocephin for UTI and urine culture is pending; white blood count is down to 11.6 from 16.7 yesterday; urine culture remains pending; we will adjust antibiotics once culture results are available Patient has been recommended skilled rehab but continues to be adamant and r efuses placement Objective - Vital Signs Vital signs: Vital Signs Temp 97.7 F 07/24/20 05:00 Pulse 61 07/24/20 05:00 Resp 19 07/24/20 05:00 BP 117/80 07/24/20 05:00 Pulse Ox 97 07/24/20 05:00 Intake & Output 07/23/20 07/24/20 07/24/20 18:59 06:59 18:59 Intake Total 50 150 220 Output Total 900 875 800 Balance -850 -725 -744 Weight 94.5 kg Intake: Intake, IV Titration 50 Amount cefTRIAXone 1 gm In 50 Sodium Chloride 0.9% 50 ml @ 100 mls/hr IVPB Q24H [facility] Rx#:[id number] Oral 150 220 Output: Urine 900 875 800 Uretheral (Lamas) 550 800 Other: Voiding Method Indwelling Catheter Indwelling Catheter Indwelling Catheter - Exam Gen: This is a 85-year-old male sitting up in bed, awake, alert and oriented 2- 3, well-developed, well-nourished. Slightly confused HEENT: Head is atraumatic, normocephalic. Pupils equal, round. Sclerae is anicteric. NECK: Supple. No JVD. No lymphadenopathy. No thyromegaly. LUNGS: Sounds diminished at the bases with no wheezing or rhonchi noted. No intercostal retractions. HEART: S1, S2 are muffled ABDOMEN: Soft. Bowel sounds are present. No masses. No tenderness. EXTREMITIES: No pedal edema. No calf tenderness. NEUROLOGICAL: Patient is awake, alert and oriented x2. Confused. Diffusely weak - Labs CBC & Chem 7: 07/25/20 06:13 07/25/20 06:13 Labs: Abnormal Lab Results - Last 24 Hours (Table) 07/23/20 07/23/20 07/24/20 Range/Units 16:52 20:39 05:36 WBC 11.6 H (3.8-10.6) k/uL RBC 4.10 L (4.30-5.90) m/uL Hgb 12.3 L (13.0-17.5) gm/dL MCHC 30.3 L (31.0-37.0) g/dL Neutrophils # 10.0 H (1.3-7.7) k/uL Chloride (98-107) mmol/L Carbon Dioxide (22-30) mmol/L BUN (9-20) mg/dL Creatinine (0.66-1.25) mg/dL Glucose (74-99) mg/dL POC Glucose (mg/dL) 257 H 230 H (75-99) mg/dL 07/24/20 07/24/20 07/24/20 Range/Units 05:36 07:12 11:53 WBC (3.8-10.6) k/uL RBC (4.30-5.90) m/uL Hgb (13.0-17.5) gm/dL MCHC (31.0-37.0) g/dL Neutrophils # (1.3-7.7) k/uL Chloride 113 H (98-107) mmol/L Carbon Dioxide 20 L (22-30) mmol/L BUN 69 H (9-20) mg/dL Creatinine 2.28 H (0.66-1.25) mg/dL Glucose 166 H (74-99) mg/dL POC Glucose (mg/dL) 175 H 190 H (75-99) mg/dL Microbiology - Last 24 Hours (Table) 07/23/20 10:45 Urine Culture - Preliminary Urine,Voided Assessment and Plan Assessment: Severe back pain with acute back pain radiating to the left lower back possibly sciatica, L5-S1 with possible severe degenerative joint disease L3-4 lesion in the CAT scan of the back Possible acute urinary tract infection Failure of outpatient treatment, severe gait dysfunction Diabetes mellitus type 2, hyperglycemia was on insulin drip Acute renal failure with acute tubular necrosis with prerenal acute tubular necrosis Hyponatremia, improved Normocytic anemia of chronic disease History of candidal urinary tract infection previously History of coronary artery disease Diabetes mellitus type 2 Gastroesophageal reflux disease Hypertension Hyperlipidemia History of myocardial infarction History of sleep apnea History of CPAP History of coronary artery disease, stent History of anxiety, depression, schizophrenia remote history of nicotine dependence Full code Recommendations and discussion: Recommend continue current medications, management, and symptomatic treatment. Multiple medical consultations following. Orthopedic surgery evaluated the patient and following. Neuro recommended changes in Neurontin along with EMG with nerve conduction study in the outpatient setting. Urinalysis was done showing a large amount of leukocytes and will initiate IV ceftriaxone while awaiting for urine culture finalization. Patient confused today and risperidone home dose was resumed. Case management spoke with and she stated this occurs when he has not taken his meds. Continue to monitor blood sugars closely. Will repeat a.m. labs. Further recommendations to follow. Case management following and working with the patient about possible discharge planning needs as patient is refusing ECF rehab placement but is agreeable to home care with rehab in the home setting. Due to multiple complex medical issues, prognosis is guarded.
[2020-07-25] MEDS: CITALOPRAM HYDROBROMIDE 20 MG TAB PO SCH (15:56)
[2020-07-25] MEDS: ASPIRIN 325 MG TAB PO SCH (15:56)
[2020-07-25 17:16] LABS: Glucose,Whole Blood 204 mg/dL (75-99)
--- NOTE | 2020-07-25 17:55 | P.PN ---
Subjective Progress Note Date: 07/25/20 Principal diagnosis: Severe back pain Complicated UTI Severe gait dysfunction Acute on chronic kidney disease stage IV 85-year-old male who was recently admitted with severe back pain radiating to the left lower leg with possible sciatica and is being closely monitored. Orthopedic surgery evaluated the patient recommending consult with anesthesia for possible steroid injection along with pain management which is currently pending at this time. Patient's blood sugars continued to be elevated and patient remains on insulin drip at this time. Will continue to monitor closely. Patient had an episode of acute chest pain and an EKG was done along with a troponin that was negative. 07/24/2020; Patient is seen and evaluated with son at bedside; son is concerned about patient being more confused Vital signs and labs are reviewed which are stable; white blood count remains elevated at 11.6; chemical profile revealed slight improvement in BUN/creatinine down to 69/2.28; blood glucose remained elevated between 155-253 MRI of the back has been reported and is negative for any acute abnormality; patient remains on IV Rocephin for UTI and urine culture is pending; white blood count is down to 11.6 from 16.7 yesterday; urine culture remains pending; we will adjust antibiotics once culture results are available Patient has been recommended skilled rehab but continues to be adamant and refuses placement 07/25/2020 Patient is seen and evaluated in room at bedside; more awake and alert today We'll signs temperature of 97.6, pulse 60, respiration 18 and blood pressure 169/77 Lab review reveals a white blood count of 8.9, hemoglobin 11.5 and hematocrit 37.1; continue with chemical profile sodium 137 potassium 4.8, BUN 63 creatinine of 2.05 Urine culture reveals staph aureus; patient remains on IV Rocephin; we will switch to cefazolin and wait for final culture and sensitivity report Objective - Vital Signs Vital signs: Vital Signs Temp 98.9 F 07/25/20 12:07 Pulse 56 L 07/25/20 12:07 Resp 17 07/25/20 12:07 BP 186/72 07/25/20 12:07 Pulse Ox 95 07/25/20 12:07 Intake & Output 07/24/20 07/25/20 07/25/20 18:59 06:59 18:59 Intake Total 620 Output Total 1600 675 Balance -980 -675 Intake: Oral 620 Output: Urine 1600 675 Uretheral (Lamas) 1600 Other: Voiding Method Indwelling Catheter Indwelling Catheter Indwelling Catheter - Labs CBC & Chem 7: 07/25/20 06:13 07/25/20 06:13 Labs: Abnormal Lab Results - Last 24 Hours (Table) 07/24/20 07/24/20 07/25/20 Range/Units 16:17 20:43 06:13 RBC 3.78 L (4.30-5.90) m/uL Hgb 11.5 L (13.0-17.5) gm/dL Hct 37.1 L (39.0-53.0) % Chloride (98-107) mmol/L Carbon Dioxide (22-30) mmol/L BUN (9-20) mg/dL Creatinine (0.66-1.25) mg/dL Glucose (74-99) mg/dL POC Glucose (mg/dL) 73 L 248 H (75-99) mg/dL 07/25/20 07/25/20 07/25/20 Range/Units 06:13 09:10 12:00 RBC (4.30-5.90) m/uL Hgb (13.0-17.5) gm/dL Hct (39.0-53.0) % Chloride 113 H (98-107) mmol/L Carbon Dioxide 21 L (22-30) mmol/L BUN 63 H (9-20) mg/dL Creatinine 2.05 H (0.66-1.25) mg/dL Glucose 155 H (74-99) mg/dL POC Glucose (mg/dL) 159 H 253 H (75-99) mg/dL Microbiology - Last 24 Hours (Table) 07/23/20 10:45 Urine Culture - Final Urine,Voided Staphylococcus aureus
[2020-07-25 19:51] LABS: Glucose,Whole Blood 227 mg/dL (75-99)
[2020-07-25] MEDS: FERROUS SULFATE 325 MG TAB PO SCH (20:05)
[2020-07-25] MEDS: ATORVASTATIN 20 MG TAB PO SCH (20:05)
[2020-07-25] MEDS: TAMSULOSIN 0.4 MG CAP.ER.24H PO SCH (20:05)
[2020-07-25] MEDS: MELATONIN 3 MG TABLET PO SCH (20:05)
[2020-07-25] MEDS: hydrOXYzine pamoate 25 MG CAP PO SCH (20:05)
[2020-07-25] MEDS: buPROPion 75 MG TAB PO SCH (20:06)
[2020-07-26] MEDS: LEVOTHYROXINE 88 MCG TAB PO SCH (05:38)
[2020-07-26] MEDS: HYDROcodone/APAP 7.5-325MG 1 EACH TAB PO PRN ×2 (05:42→20:32)
[2020-07-26 07:05] LABS: Basophils % (A) 0 %; Eosinophils # (A) 0.4 k/uL (0-0.7); Eosinophils % (A) 3 %; HCT 40.5 % (39.0-53.0); HGB 12.5 gm/dL (13.0-17.5); Hypochromasia Slight; Lymphocytes # (A) 2.6 k/uL (1.0-4.8); Lymphocytes % (A) 20 %; MCH 30.3 pg (25.0-35.0); MCHC 30.8 g/dL (31.0-37.0); MCV 98.5 fL (80.0-100.0); Mean Platelet Volume 8.1; Monocytes # (A) 0.9 k/uL (0-1.0); Monocytes % (A) 7 %; Neutrophils # (A) 8.9 k/uL (1.3-7.7); Neutrophils % (A) 69 %; Platelet Count 214 k/uL (150-450); RBC 4.11 m/uL (4.30-5.90); RDW 13.4 % (11.5-15.5)
[2020-07-26 07:22] LABS: Glucose,Whole Blood 72 mg/dL (75-99)
[2020-07-26 07:31] LABS: Calcium 8.8 mg/dL (8.4-10.2); Potassium 4.3 mmol/L (3.5-5.1)
[2020-07-26] MEDS: METOPROLOL TARTRATE 50 MG TAB PO SCH ×2 (08:25→20:32)
[2020-07-26] MEDS: methylPREDNISolone SOD SUCCI 40 MG/ML 1 ML VIAL IV SCH ×2 (08:25→20:34)
[2020-07-26] MEDS: APIXABAN 2.5 MG TABLET PO SCH ×2 (08:25→16:10)
[2020-07-26] MEDS: FINASTERIDE 5 MG TAB PO SCH (08:25)
[2020-07-26] MEDS: SENNOSIDES-DOCUSATE SODIUM 1 EACH TAB PO SCH ×2 (08:25→16:10)
[2020-07-26] MEDS: GABAPENTIN 100 MG CAP PO SCH ×3 (08:26→21:45)
[2020-07-26] MEDS: risperiDONE 0.5 MG TAB PO SCH (08:26)
[2020-07-26] MEDS: POTASSIUM CHLORIDE ER 10 MEQ TAB.ER.PRT PO SCH (08:26)
[2020-07-26] MEDS: hydrALAZINE HCL 25 MG TAB PO SCH ×3 (08:26→19:47)
[2020-07-26] MEDS: glipiZIDE 10 MG TAB PO SCH ×4 (08:26→19:47)
[2020-07-26] MEDS: DICYCLOMINE 10 MG CAP PO SCH ×3 (08:26→21:45)
[2020-07-26] MEDS: INSULIN DETEMIR (LEVEMIR) 100 UNIT/ML SYR SQ SCH (08:27)
[2020-07-26] MEDS: PANTOPRAZOLE 40 MG TABLET PO SCH (08:27)
[2020-07-26] MEDS: INSULIN ASPART (NovoLOG) 100 UNIT/ML VIAL SQ SCH ×4 (08:27→20:32)
[2020-07-26 12:10] LABS: Glucose,Whole Blood 320 mg/dL (75-99)
--- NOTE | 2020-07-26 12:52 | P.PN ---
Subjective Progress Note Date: 07/26/20 Follow-up for chronic kidney disease. Feels better. No nausea vomiting diarrhea. Objective - Vital Signs Vital signs: Vital Signs Temp 97.6 F 07/26/20 05:00 Pulse 50 L 07/26/20 05:00 Resp 18 07/26/20 05:00 BP 147/62 07/26/20 05:00 Pulse Ox 95 07/26/20 05:00 Intake & Output 07/25/20 07/26/20 07/26/20 18:59 06:59 18:59 Intake Total 120 530 Output Total 1000 900 500 Balance -209 -795 -186 Intake: Intake, IV Titration 50 Amount ceFAZolin 2 gm In Sodium 50 Chloride 0.9% 50 ml @ 100 mls/hr IVPB ONCE ONE Rx# :[id number] Oral 120 480 Output: Urine 1000 900 500 Other: Voiding Method Indwelling Catheter Indwelling Catheter Indwelling Catheter - Exam No acute distress S1-S2 heard Lungs clear Lamas catheter good urine output No edema - Labs CBC & Chem 7: 07/26/20 06:16 07/26/20 06:16 Labs: Abnormal Lab Results - Last 24 Hours (Table) 07/25/20 07/25/20 07/26/20 Range/Units 17:14 19:50 06:16 WBC 13.0 H (3.8-10.6) k/uL RBC 4.11 L (4.30-5.90) m/uL Hgb 12.5 L (13.0-17.5) gm/dL MCHC 30.8 L (31.0-37.0) g/dL Neutrophils # 8.9 H (1.3-7.7) k/uL Chloride (98-107) mmol/L Carbon Dioxide (22-30) mmol/L BUN (9-20) mg/dL Creatinine (0.66-1.25) mg/dL Glucose (74-99) mg/dL POC Glucose (mg/dL) 204 H 227 H (75-99) mg/dL 07/26/20 07/26/20 07/26/20 Range/Units 06:16 07:21 12:09 WBC (3.8-10.6) k/uL RBC (4.30-5.90) m/uL Hgb (13.0-17.5) gm/dL MCHC (31.0-37.0) g/dL Neutrophils # (1.3-7.7) k/uL Chloride 116 H (98-107) mmol/L Carbon Dioxide 20 L (22-30) mmol/L BUN 55 H (9-20) mg/dL Creatinine 1.63 H (0.66-1.25) mg/dL Glucose 66 L (74-99) mg/dL POC Glucose (mg/dL) 72 L 320 H (75-99) mg/dL Microbiology - Last 24 Hours (Table) 07/23/20 10:45 Urine Culture - Final Urine,Voided Staphylococcus aureus Assessment and Plan Assessment: #1 chronic kidney disease stage IV secondary to nephrosclerosis with a baseline creatinine of 1.8-1.9 MG per DL. Creatinine stable. #2 acute kidney injury secondary to urinary retention status post Lamas. 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 Plan: #1 renal function stable continue to monitor. #2 Lamas care. Also on Flomax. #3 avoid nephrotoxic agents and hypotensive episodes.
--- NOTE | 2020-07-26 15:23 | P.PN ---
Subjective Progress Note Date: 07/26/20 Principal diagnosis: 85-year-old male who was recently admitted with severe back pain radiating to the left lower leg with possible sciatica and is being closely monitored. Orthopedic surgery evaluated the patient recommending consult with anesthesia for possible steroid injection along with pain management which is currently pending at this time. Patient's blood sugars continued to be elevated and patient remains on insulin drip at this time. Will continue to monitor closely. Patient had an episode of acute chest pain and an EKG was done along with a troponin that was negative. 07/24/2020; Patient is seen and evaluated with son at bedside; son is concerned about patient being more confused Vital signs and labs are reviewed which are stable; white blood count remains elevated at 11.6; chemical profile revealed slight improvement in BUN/creatinine down to 69/2.28; blood glucose remained elevated between 155-253 MRI of the back has been reported and is negative for any acute abnormality; patient remains on IV Rocephin for UTI and urine culture is pending; white blood count is down to 11.6 from 16.7 yesterday; urine culture remains pending; we will adjust antibiotics once culture results are available Patient has been recommended skilled rehab but continues to be adamant and refuses placement 07/25/2020 Patient is seen and evaluated in room at bedside; more awake and alert today We'll signs temperature of 97.6, pulse 60, respiration 18 and blood pressure 169/77 Lab review reveals a white blood count of 8.9, hemoglobin 11.5 and hematocrit 37.1; continue with chemical profile sodium 137 potassium 4.8, BUN 63 creatinine of 2.05 Urine culture reveals staph aureus; patient remains on IV Rocephin; we will switch to cefazolin and wait for final culture and sensitivity report 07/26/2020 Patient is seen and evaluated in follow-up much more awake and alert today. Responding to questions and commands appropriately. Patient is currently maintained on IV cefazolin for an acute urinary tract infection Staphylococcus aureus. patient continues with an indwelling Lamas catheter and will discuss with nursing staff about removal of. PT/OT to reevaluate the patient as he continues to be quite weak and unsteady and unable to ambulate due to the pain. Patient adamant about going home with home care and family is well although he continues to be unable to ambulate. Will reassess and discuss with case management and social work in the morning. creatinine trending down and is currently 1.63 with a BUN of 55. Nephrology is following closely. patient is currently maintained on IV steroids and will continue at this time. Patient states he would like to go home although becomes tearful due to the pain. Will discuss with family about discharge planning needs. Currently patient denies any chest pain, shortness of breath, or palpitations. Patient is afebrile. No reports of nausea or vomiting and patient is tolerating diet. Objective - Vital Signs Vital signs: Vital Signs Temp 97.6 F 07/26/20 05:00 Pulse 50 L 07/26/20 05:00 Resp 18 07/26/20 05:00 BP 147/62 07/26/20 05:00 Pulse Ox 95 07/26/20 05:00 Intake & Output 07/25/20 07/26/20 07/26/20 18:59 06:59 18:59 Intake Total 120 530 Output Total 1000 900 500 Balance -880 -370 -500 Intake: Intake, IV Titration 50 Amount ceFAZolin 2 gm In Sodium 50 Chloride 0.9% 50 ml @ 100 mls/hr IVPB ONCE ONE Rx# :[id number] Oral 120 480 Output: Urine 1000 900 500 Other: Voiding Method Indwelling Catheter Indwelling Catheter Indwelling Catheter - Exam Gen: This is a 85-year-old male sitting up in bed, awake, alert and oriented 2- 3, well-developed, well-nourished. Temp is 97.6F, pulse is 50, respirations are 18, blood pressure is 147/62, oxygen saturation is 95% on room air. HEENT: Head is atraumatic, normocephalic. Pupils equal, round. Sclerae is anicteric. NECK: Supple. No JVD. No lymphadenopathy. No thyromegaly. LUNGS: breath Sounds diminished at the bases with no wheezing or rhonchi noted. No intercostal retractions. HEART: S1, S2 are muffled ABDOMEN: Soft. Bowel sounds are present. No masses. No tenderness. EXTREMITIES: No pedal edema. No calf tenderness. NEUROLOGICAL: Patient is awake, alert and oriented x3. Diffusely weak - Labs CBC & Chem 7: 07/26/20 06:16 07/26/20 06:16 Labs: Abnormal Lab Results - Last 24 Hours (Table) 07/25/20 07/25/20 07/26/20 Range/Units 17:14 19:50 06:16 WBC 13.0 H (3.8-10.6) k/uL RBC 4.11 L (4.30-5.90) m/uL Hgb 12.5 L (13.0-17.5) gm/dL MCHC 30.8 L (31.0-37.0) g/dL Neutrophils # 8.9 H (1.3-7.7) k/uL Chloride (98-107) mmol/L Carbon Dioxide (22-30) mmol/L BUN (9-20) mg/dL Creatinine (0.66-1.25) mg/dL Glucose (74-99) mg/dL POC Glucose (mg/dL) 204 H 227 H (75-99) mg/dL 07/26/20 07/26/20 07/26/20 Range/Units 06:16 07:21 12:09 WBC (3.8-10.6) k/uL RBC (4.30-5.90) m/uL Hgb (13.0-17.5) gm/dL MCHC (31.0-37.0) g/dL Neutrophils # (1.3-7.7) k/uL Chloride 116 H (98-107) mmol/L Carbon Dioxide 20 L (22-30) mmol/L BUN 55 H (9-20) mg/dL Creatinine 1.63 H (0.66-1.25) mg/dL Glucose 66 L (74-99) mg/dL POC Glucose (mg/dL) 72 L 320 H (75-99) mg/dL Microbiology - Last 24 Hours (Table) 07/23/20 10:45 Urine Culture - Final Urine,Voided Staphylococcus aureus Assessment and Plan Assessment: Severe back pain with acute back pain radiating to the left lower back possibly sciatica, L5-S1 with possible severe degenerative joint disease L3-4 lesion in the CAT scan of the back acute urinary tract infection Failure of outpatient treatment, severe gait dysfunction Diabetes mellitus type 2, hyperglycemia was on insulin drip Acute renal failure with acute tubular necrosis with prerenal acute tubular necrosis Hyponatremia, improved Normocytic anemia of chronic disease History of candidal urinary tract infection previously History of coronary artery disease Diabetes mellitus type 2 Gastroesophageal reflux disease Hypertension Hyperlipidemia History of myocardial infarction History of sleep apnea History of CPAP History of coronary artery disease, stent History of anxiety, depression, schizophrenia remote history of nicotine dependence Full code Recommendations and discussion: Recommend continue current medications, management, and symptomatic treatment. will discontinue indwelling Lamas catheter and monitor closely for signs of retention. Patient is maintained on IV cefazolin as urine cultures finalized showing Staphylococcus aureus. Continue to monitor blood sugars closely. Will repeat a.m. labs. Further recommendations to follow. Case management following and working with the patient about possible discharge planning needs as patient is refusing ECF rehab placement but is agreeable to home care with rehab in the home setting. Will discuss with family about discharge planning. Due to multiple complex medical issues, prognosis is guarded. possible discharge in 24-48 hours.
[2020-07-26] MEDS: ASPIRIN 325 MG TAB PO SCH (16:10)
[2020-07-26] MEDS: CITALOPRAM HYDROBROMIDE 20 MG TAB PO SCH (16:10)
[2020-07-26 17:14] LABS: Glucose,Whole Blood 259 mg/dL (75-99)
--- NOTE | 2020-07-26 18:23 | P.PN ---
Subjective Progress Note Date: 07/26/20 Patient was seen at bedside and that he states that he is doing better today compared to couple days ago. The patient's nurse was at bedside and she stated the he's been having episodes of confusion over the weekend. Objective - Vital Signs Vital signs: Vital Signs Temp 97.8 F 07/26/20 13:00 Pulse 51 L 07/26/20 13:00 Resp 18 07/26/20 13:00 BP 179/73 07/26/20 13:00 Pulse Ox 94 L 07/26/20 13:00 Intake & Output 07/25/20 07/26/20 07/26/20 18:59 06:59 18:59 Intake Total 120 530 Output Total 7632 644 7290 Balance -880 -370 -1550 Intake: Intake, IV Titration 50 Amount ceFAZolin 2 gm In Sodium 50 Chloride 0.9% 50 ml @ 100 mls/hr IVPB ONCE ONE Rx# :[id number] Oral 120 480 Output: Urine 8240 834 5947 Uretheral (Lamas) 100 Other: Voiding Method Indwelling Catheter Indwelling Catheter Indwelling Catheter - Exam GENERAL: The patient is lying in bed and is in acute distress. CHEST: The heart rate is regular rate rhythm. No murmurs to auscultation. LUNG: Clear to auscultation bilaterally no wheezing noted throughout. Not labored breathing. NEUROLOGICAL: Higher mental function: The patient is awake, alert, oriented to self, place and time. Patient is following commands. No aphasia and no neglect. Cranial nerves: The pupils are round, equal and reactive to light and accom modation. 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 Extraocular movement is intact no nystagmus is noted. Facial sensation is normal to touch throughout. The facial strength is normal throughout. Hearing is normal bilaterally to hand rub. Tongue is midline and moved [id number] without any difficulty. No dy sarthria is noted. Shoulder shrug is normal bilaterally. Motor: Gait is defered because of patient pain. Motor strength on the left was hard to assess because of patient. pain but I felt he had at least 4/5 but again it was limited because of the pain Otherwsie strength is 5/5. 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 Sensation: Decrease to pinprick from proximal calf all way down to digits bilaterally and from mid-forearm all way down to digits of hand bilaterally. . Reflexes (right/left): 1+ throughout. Could not assess left lower extremity since patient was in pain and he refused to be assessed. Plantars are downgoing bilaterally - Labs CBC & Chem 7: 07/26/20 06:16 07/26/20 06:16 Labs: Abnormal Lab Results - Last 24 Hours (Table) 07/25/20 07/26/20 07/26/20 Range/Units 19:50 06:16 06:16 WBC 13.0 H (3.8-10.6) k/uL RBC 4.11 L (4.30-5.90) m/uL Hgb 12.5 L (13.0-17.5) gm/dL MCHC 30.8 L (31.0-37.0) g/dL Neutrophils # 8.9 H (1.3-7.7) k/uL Chloride 116 H (98-107) mmol/L Carbon Dioxide 20 L (22-30) mmol/L BUN 55 H (9-20) mg/dL Creatinine 1.63 H (0.66-1.25) mg/dL Glucose 66 L (74-99) mg/dL POC Glucose (mg/dL) 227 H (75-99) mg/dL 07/26/20 07/26/20 07/26/20 Range/Units 07:21 12:09 17:12 WBC (3.8-10.6) k/uL RBC (4.30-5.90) m/uL Hgb (13.0-17.5) gm/dL MCHC (31.0-37.0) g/dL Neutrophils # (1.3-7.7) k/uL Chloride (98-107) mmol/L Carbon Dioxide (22-30) mmol/L BUN (9-20) mg/dL Creatinine (0.66-1.25) mg/dL Glucose (74-99) mg/dL POC Glucose (mg/dL) 72 L 320 H 259 H (75-99) mg/dL Assessment and Plan Assessment: 85-year-old right-handed gentleman with medical history of ?stroke (with right hand weakness about 6-8 month ago), diabetes, 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 About two weeks prior to presentation, it started while sitting on the toilet for 3 hours and had a hard time getting up. He localized the pain to left lower back but at time it left hip that radiates down the side of leg all way down to side of foot. The pain is constant and rates it 8 to 10/10. He does have urinary incontinence since end of last year but has not got worse since this back pain. Denies bowel issues. Acute episode of Delerium---resolved Left lower back pain radiating into the left extremity likely Lumbar radiculopathy ARIELLE on CKI--improving Leukocytosis due to medication (steroids) Diabetes type 2 Peripheral neuropathy (Decreased sensation to pinprick over the bilateral distal extremities) Hypertension Legally blind over the right eye History of coronary artery disease. Plan: MRI of the lumbar spine was done on 07/19/2020 (prior MRI L-spine 09/27/2019) which is reported as exam is essentially stable. There is mild degenerative disc change at, intravertebral narrowing L3-L4 at, L4-L5 on the right. Facet arthropathic the change especially at the L5-S1. Patient had the CT abdomen as well as pelvis and there is no fracture seen on the CT of the pelvis. CT of the abdomen was reported as Reticulosis without acute aute diverticulitis. Cholelithiasis. From the patient's presentation this seems a likely lumbar radiculopathy but the location of it seems the more to the side of the spine which the patient was sitting on the toilet for the 3 hours and not sure if this was the culprit or was incidental. Orthopedic recommend medical management. MRI Pelvis and it was reported as limited evaluation however no definite of abnormality of the pelvis is appreciated this time. I recommend possibly going up on gabapentin from 100 mg 3 times a day consider going up to the 200 mg twice a day and if that doesn't help go up to 300 mg 3 times a day. I note patient has kidney insufficiency but I don't believe this is a very significant high dose at and we'll see if this helps with his pain. Consider lidocaine patch Hemoglobin A1c: 10.7 vitamin B12: 299, folate >24. Recommend patient getting the EMG with nerve conduction study as an outpatient. Cu patient had the delirium states over the weekend likely due to medication use. The try to avoid the narcotic if possible. Orthopedic and the pain management team are on board. Acute kidney injury on chronic and kidney insufficiency we'll defer management to nephrology team. Regarding management of diabetes as well as hypertension we'll defer to the primary team. We'll follow with the patient the periodically. Genaro Marin M.D. Neuro-hospitalist Time with Patient: Greater than 30
[2020-07-26] MEDS: buPROPion 75 MG TAB PO SCH (19:47)
[2020-07-26] MEDS: ATORVASTATIN 20 MG TAB PO SCH (19:47)
[2020-07-26] MEDS: TAMSULOSIN 0.4 MG CAP.ER.24H PO SCH (19:48)
[2020-07-26 20:28] LABS: Glucose,Whole Blood 254 mg/dL (75-99)
[2020-07-26] MEDS: FERROUS SULFATE 325 MG TAB PO SCH (20:32)
[2020-07-26] MEDS: hydrOXYzine pamoate 25 MG CAP PO SCH (20:32)
[2020-07-26] MEDS: MELATONIN 3 MG TABLET PO SCH (20:32)
[2020-07-26 22:18] VITALS: RESP 16
[2020-07-27] MEDS: LEVOTHYROXINE 88 MCG TAB PO SCH (05:52)
[2020-07-27] MEDS: HYDROcodone/APAP 7.5-325MG 1 EACH TAB PO PRN ×2 (05:54→14:57)
[2020-07-27 06:54] LABS: Glucose,Whole Blood 97 mg/dL (75-99)
[2020-07-27 07:36] LABS: Basophils % (A) 0 %; Eosinophils # (A) 0.4 k/uL (0-0.7); Eosinophils % (A) 3 %; HGB 12.5 gm/dL (13.0-17.5); Hypochromasia Slight; Lymphocytes # (A) 2.6 k/uL (1.0-4.8); Lymphocytes % (A) 20 %; MCH 30.4 pg (25.0-35.0); MCHC 30.6 g/dL (31.0-37.0); MCV 99.3 fL (80.0-100.0); Mean Platelet Volume 7.9; Monocytes # (A) 0.8 k/uL (0-1.0); Monocytes % (A) 6 %; Neutrophils # (A) 9.2 k/uL (1.3-7.7); Neutrophils % (A) 70 %; Platelet Count 197 k/uL (150-450); RBC 4.13 m/uL (4.30-5.90); RDW 13.2 % (11.5-15.5); WBC 13.1 k/uL (3.8-10.6)
[2020-07-27 07:51] LABS: Calcium 8.5 mg/dL (8.4-10.2); Potassium 4.3 mmol/L (3.5-5.1)
[2020-07-27] MEDS: INSULIN ASPART (NovoLOG) 100 UNIT/ML VIAL SQ SCH ×2 (08:07→12:51)
--- NOTE | 2020-07-27 09:11 | P.PN ---
Subjective Patient is seen in follow-up for acute kidney injury and chronic kidney disease. Renal function worse today but near his baseline. Lamas catheter removed. Bladder scans have been negative. Oral intake fair. Vital signs are stable. General: The patient appeared well nourished and normally developed. HEENT: Head exam is unremarkable. Neck is without jugular venous distension. LUNGS: Lungs are clear to auscultation and percussion. Breath sounds decreased. HEART: Rate and Rhythm are regular. ABDOMEN: Soft, nontender. EXTREMITITES: No edema. Objective - Vital Signs Vital signs: Vital Signs Temp 97.6 F 07/27/20 04:27 Pulse 64 07/27/20 04:27 Resp 16 07/27/20 00:00 BP 171/79 07/27/20 04:27 Pulse Ox 99 07/27/20 04:27 Intake & Output 07/26/20 07/27/20 07/27/20 18:59 06:59 18:59 Intake Total 530 Output Total 1550 1051 Balance -1550 -521 Intake: Intake, IV Titration 50 Amount ceFAZolin 1,000 mg In 50 Sodium Chloride 0.9% 50 ml @ 100 mls/hr IVPB Q12HR [facility] Rx#:[id number] Oral 480 Output: Urine 1550 1050 Uretheral (Lamas) 100 Stool 1 Other: Voiding Method Indwelling Catheter Urinal Incontinent # Voids 1 # Bowel Movements 1 - Labs CBC & Chem 7: 07/27/20 07:00 07/27/20 07:00 Labs: Abnormal Lab Results - Last 24 Hours (Table) 07/26/20 07/26/20 07/26/20 Range/Units 12:09 17:12 20:03 WBC (3.8-10.6) k/uL RBC (4.30-5.90) m/uL Hgb (13.0-17.5) gm/dL MCHC (31.0-37.0) g/dL Neutrophils # (1.3-7.7) k/uL Chloride (98-107) mmol/L BUN (9-20) mg/dL Creatinine (0.66-1.25) mg/dL POC Glucose (mg/dL) 320 H 259 H 254 H (75-99) mg/dL 07/27/20 07/27/20 Range/Units 07:00 07:00 WBC 13.1 H (3.8-10.6) k/uL RBC 4.13 L (4.30-5.90) m/uL Hgb 12.5 L (13.0-17.5) gm/dL MCHC 30.6 L (31.0-37.0) g/dL Neutrophils # 9.2 H (1.3-7.7) k/uL Chloride 113 H (98-107) mmol/L BUN 56 H (9-20) mg/dL Creatinine 2.10 H (0.66-1.25) mg/dL POC Glucose (mg/dL) (75-99) mg/dL Assessment and Plan Plan: Assessment: 1. Acute kidney injury mostly prerenal improving with IV hydration. Also component of urinary retention. Creatinine 2.1 today. 2. Chronic kidney disease stage III with baseline creatinine in the range of 1.8-2 secondary to nephrosclerosis. 3. Metabolic acidosis secondary to acute kidney injury and IV fluids. Improved. 4. Chronic kidney disease mineral bone disease maintained on calcitriol. 5. Hypertension with chronic kidney disease. Stable. 6. Back pain. No acute changes noted on MRI. Orthopedic surgery following. 7. Diabetes mellitus. 8. Urinary retention. Lamas catheter removed. Bladder scans have been negative. Plan: Encouraged oral intake. Avoid nephrotoxins. Continue to monitor renal function and urine output. Continue to monitor bladder scans and to insert Lamas catheter if noted to have retention.
--- NOTE | 2020-07-27 09:45 | CDI ---
Documentation Clarification Form Date: 07/27/2020 0943 CDS: Patrica Palmer RN, CCDS Admit Date: 07/19/2020 1003 Patient Name: Ortiz Latham ATTENTION: The Clinical Documentation Specialists (CDI) and [facility] Coding Staff appreciate your assistance in clarifying documentation. Please respond to the clarification below the line at the bottom and electronically sign. The CDI & [facility] Coding staff will review the response and follow-up if needed. Please note: Queries are made part of the Legal Health Record. If you have any questions, please contact the author of this message via ITS. Dr. Stokes A diagnosis of acute UTI has been documented in the 07/24 & 07/26 Progress notes in a patient with an IDC. Please provide further specificity. History/Risk Factors: Hx of bereket UTI, , urinary incontinence, urinary retention this admission with Lamas insertion, acute left back pain radiating to leg, ARF with ATN, DM2 Clinical Indicators: 07/17 U/A: trace protein , +4 Glucose 07/23 U/A: +2 Protein, Moderate Blood, Large amount of leukocyte esterase, >182 RBC's, 136 WBC, few WBC Clumps, 8 hyline casts, rare mucus, few urine yeast 07/23 Urine culture: + Staph Aureus 07/17-07/27 Lab results: WBC 8.3/9.4/14.2/16.7/11.6/8.9/13.0/13.1 Treatment: 07/25 Cefazolin 2 gm IVPB OT 07/26 Cefazolin 1gm IVPB Q 12 hrs 07/23-07/25 IV Ceftriaxone 1 gm IVPB Q 24 hrs In your professional opinion, can you please clarify the etiology of the UTI and POA status if known? Lamas catheter related UTI UTI not related to catheter/ Other condition, please specify Unable to determine If an infective organism is present, please specify cause and effect relationship if applicable. Please continue to document in your progress notes and discharge summary in order to capture severity of illness and risk of mortality. Include clinical findings that support your diagnosis. MTDD
[2020-07-27] MEDS: METOPROLOL TARTRATE 50 MG TAB PO SCH (10:16)
[2020-07-27] MEDS: FINASTERIDE 5 MG TAB PO SCH (10:16)
[2020-07-27] MEDS: SENNOSIDES-DOCUSATE SODIUM 1 EACH TAB PO SCH ×2 (10:17→14:58)
[2020-07-27] MEDS: hydrALAZINE HCL 25 MG TAB PO SCH ×2 (10:17→14:57)
[2020-07-27] MEDS: PANTOPRAZOLE 40 MG TABLET PO SCH (10:17)
[2020-07-27] MEDS: GABAPENTIN 100 MG CAP PO SCH ×2 (10:17→14:57)
[2020-07-27] MEDS: DICYCLOMINE 10 MG CAP PO SCH ×2 (10:17→14:58)
[2020-07-27] MEDS: risperiDONE 0.5 MG TAB PO SCH (10:18)
[2020-07-27] MEDS: methylPREDNISolone SOD SUCCI 40 MG/ML 1 ML VIAL IV SCH (10:18)
[2020-07-27] MEDS: glipiZIDE 10 MG TAB PO SCH ×2 (10:19→12:51)
[2020-07-27] MEDS: APIXABAN 2.5 MG TABLET PO SCH ×2 (10:19→14:58)
[2020-07-27 10:25] LABS: Glucose,Whole Blood 192 mg/dL (75-99)
[2020-07-27] MEDS: INSULIN DETEMIR (LEVEMIR) 100 UNIT/ML SYR SQ SCH (10:35)
[2020-07-27 11:34] LABS: Glucose,Whole Blood 239 mg/dL (75-99)
[2020-07-27 11:36] VITALS: BP 134/65; PULSE 48; TEMP 97.8
[2020-07-27] MEDS: ASPIRIN 325 MG TAB PO SCH (14:57)
[2020-07-27] MEDS: CITALOPRAM HYDROBROMIDE 20 MG TAB PO SCH (14:57)
--- NOTE | 2020-07-27 15:35 | P.DS ---
Providers Date of admission: 07/19/20 10:03 Expected date of discharge: 07/27/20 Attending physician: Di Stokes Consults: 07/17/20 18:13 Consult Physician Routine Consulting Provider: Charles Angeles Consult Reason/Comments: back pain Do you want consulting provider notified?: Yes 07/17/20 23:23 Consult Physician Routine Consulting Provider: Sabrina Sauer Consult Reason/Comments: arf Do you want consulting provider notified?: Yes 07/18/20 10:32 Consult Physician Routine Consulting Provider: Anesthesia,Services Consult Reason/Comments: eval and possible DULCE MARIA Do you want consulting provider notified?: Yes 07/20/20 13:25 Consult Physician Routine Consulting Provider: Genaro Marin Consult Reason/Comments: Pain to touch, cleared by ortho Do you want consulting provider notified?: Yes Primary care physician: [facility] Hospital Course: Final diagnosis Lamas catheter related urinary tract infection with cultures showing Staphylococcus aureus Severe back pain with acute back pain radiating to the left lower back possibly sciatica, L5-S1 with possible severe degenerative joint disease L3-4 lesion in the CAT scan of the back Failure of outpatient treatment, severe gait dysfunction Diabetes mellitus type 2, hyperglycemia was on insulin drip Acute renal failure with acute tubular necrosis with prerenal acute tubular necrosis Hyponatremia, improved Normocytic anemia of chronic disease History of candidal urinary tract infection previously History of coronary artery disease Diabetes mellitus type 2 Gastroesophageal reflux disease Hypertension Hyperlipidemia History of myocardial infarction History of sleep apnea History of CPAP History of coronary artery disease, stent History of anxiety, depression, schizophrenia remote history of nicotine dependence Full code Discharge disposition Patient is being discharged in a stable condition with guarded prognosis to [facility] for continued PT/OT therapy. Patient will follow-up with [facility] in the outpatient setting upon discharge. She also instructed to follow-up with pain management along with neuro and [facility] as needed. Patient is to continue with oral antibiotics in the form of Keflex 500 mg 3 times daily for the next 7 days and then may discontinue. Total time taken is greater than 35 minutes. History of present illness This is a 85-year-old male who was recently admitted severe back pain radiating to the left lower leg with possible sciatica and was being closely monitored. Patient was seen and evaluated by orthopedics along with pain management and also neurology and recommending outpatient pain management follow-up along with neurology follow-up for possible EMG testing as patient had multiple MRIs showing no acute active process at this time. Patient continued to be quite weak with the inability to walk or stand without moderate to maximum assistance and PT/OT evaluated the patient recommending subacute rehab. Patient initially was reluctant for rehab but is now agreeable and will be going to [facility] for continued PT/OT therapy. Patient also had a Lamas catheter due to the inability to get up and use the bathroom and most likely acquired an acute urinary tract infection from Lamas catheter use. Cultures finalized showing Staphylococcus aureus which is sensitive to Keflex and patient will continue on Keflex 500 mg 3 times daily for the next 7 days and then may discontinue. Patient does have a history of acute renal failure and will need repeat labs in a few days to monitor kidney functions. Patient also has a history of retaining urine and would benefit from bladder scanning. Patient to continue on Flomax daily. Patient is a diabetic and would recommend monitoring blood sugars before meals at bedtime and treat accordingly with sliding scale along with long-acting insulin. Currently no reports of chest pain, shortness of breath, or palpitations. Patient is afebrile. No reports of nausea or vomiting and patient is tolerating diet. Patient will be going to [facility] today. On exam vital signs are stable. Temp is 97.6F, pulse is 64, respirations are 16, blood pressure is 134/65, oxygen saturation is 96% on room air. Cardio S1, S2 are muffled. Respiratory system shows diminished breath sounds at the bases with no wheezing or rhonchi noted. Abdomen is soft and obese, and nontender. Nervous system shows diffuse weakness. Please refer to medication reconciliation sheet for a list of medications. Patient Condition at Discharge: Stable Plan - Discharge Summary Discharge Rx Participant: No New Discharge Prescriptions: New Cephalexin [Keflex] 500 mg PO Q8HR 5 Days #15 cap Metoprolol Tartrate [Lopressor] 50 mg PO BID 30 Days #60 tab Gabapentin [Neurontin] 100 mg PO TID #30 cap HYDROcodone/APAP 7.5-325MG [Wrens 7.5-325] 1 each PO Q6H PRN #12 tab PRN Reason: Pain predniSONE 10 mg PO DIRECTED #30 tab risperiDONE [RisperDAL] 0.5 mg PO DAILY tab Continue Citalopram Hydrobromide [Citalopram HBr] 40 mg PO DAILY@0 Omeprazole [PriLOSEC] 20 mg PO BID@0700,153 Levothyroxine Sodium [Synthroid] 88 mcg PO QAM Tamsulosin HCl [Flomax] 0.4 mg PO HS@1999 Vit C/E/Zn/Coppr/Lutein/Zeaxan [Preservision Areds 2 Softgel] 1 cap PO BID@0700,153 buPROPion [Wellbutrin] 150 mg PO HS Melatonin 3 mg PO HS Acetaminophen [Tylenol] 650 mg PO Q4H PRN PRN Reason: Fever cycloSPORINE [Restasis] 1 drop BOTH EYES BID PRN PRN Reason: dry eyes Kelly-Lanta 30 ml PO Q6H PRN PRN Reason: Gi Upset Insulin Detemir (Levemir) [Levemir] 10 unit SQ QAM Dicyclomine [Bentyl] 10 mg PO TID #0 cap glipiZIDE [Glucotrol] 10 mg PO ACHS Insulin Detemir (Levemir) [Levemir] 25 units SQ HS Ferrous Sulfate [Iron] 325 mg PO HS Kelly-Pectate Suspension 262mg/15ml 262 mg PO Q4H PRN PRN Reason: Gi Upset Docusate [Colace] 100 mg PO DAILY PRN PRN Reason: Constipation Finasteride [Proscar] 5 mg PO QAM Sennosides-Docusate Sodium [Senokot-S] 1 each PO BID@0700,1530 Oxybutynin Chloride [Ditropan] 2.5 mg PO BID@0700,153 Simvastatin [Zocor] 40 mg PO HS@1999 Aspirin 325 mg PO DAILY@1529 Apixaban [Eliquis] 2.5 mg PO BID@0700,1530 hydrOXYzine pamoate [hydrOXYzine PAMOATE] 25 mg PO HS Calcitriol [Rocaltrol] 0.25 mcg PO Q7D Changed hydrALAZINE HCL [Apresoline] 50 mg PO TID@0700,1529,1999 #0 Discontinued Potassium Chloride ER [K-Dur 10] 10 meq PO QAM Furosemide [Lasix] 40 mg PO QAM LORazepam [Ativan] 0.5 mg PO HS PRN PRN Reason: Anxiety atenoloL [Tenormin] 25 mg PO QAM Discharge Medication List Citalopram Hydrobromide [Citalopram HBr] 40 mg PO DAILY@15309/29/14 [History] Levothyroxine Sodium [Synthroid] 88 mcg PO QAM 09/29/14 [History] Omeprazole [PriLOSEC] 20 mg PO BID@0700,1530 09/29/14 [History] Tamsulosin HCl [Flomax] 0.4 mg PO HS@199911/07/18 [History] Vit C/E/Zn/Coppr/Lutein/Zeaxan [Preservision Areds 2 Softgel] 1 cap PO BID@0700,1530 11/07/18 [History] Acetaminophen [Tylenol] 650 mg PO Q4H PRN 11/26/18 [History] Melatonin 3 mg PO HS 11/26/18 [History] buPROPion [Wellbutrin] 150 mg PO HS 11/26/18 [History] Kelly-Lanta 30 ml PO Q6H PRN 12/15/18 [History] Insulin Detemir (Levemir) [Levemir] 10 unit SQ QAM 12/15/18 [History] cycloSPORINE [Restasis] 1 drop BOTH EYES BID PRN 12/15/18 [History] Dicyclomine [Bentyl] 10 mg PO TID #0 cap 12/25/18 [Rx] Apixaban [Eliquis] 2.5 mg PO BID@0700,1530 07/17/20 [History] Aspirin 325 mg PO DAILY@152907/17/20 [History] Calcitriol [Rocaltrol] 0.25 mcg PO Q7D 07/17/20 [History] Docusate [Colace] 100 mg PO DAILY PRN 07/17/20 [History] Ferrous Sulfate [Iron] 325 mg PO HS 07/17/20 [History] Finasteride [Proscar] 5 mg PO QAM 07/17/20 [History] Kelly-Pectate Suspension 262mg/15ml 262 mg PO Q4H PRN 07/17/20 [History] Insulin Detemir (Levemir) [Levemir] 25 units SQ HS 07/17/20 [History] Oxybutynin Chloride [Ditropan] 2.5 mg PO BID@0700,1530 07/17/20 [History] Sennosides-Docusate Sodium [Senokot-S] 1 each PO BID@0700,1530 07/17/20 [History] Simvastatin [Zocor] 40 mg PO HS@199907/17/20 [History] glipiZIDE [Glucotrol] 10 mg PO ACHS 07/17/20 [History] hydrOXYzine pamoate [hydrOXYzine PAMOATE] 25 mg PO HS 07/17/20 [History] Cephalexin [Keflex] 500 mg PO Q8HR 5 Days #15 cap 07/27/20 [Rx] Gabapentin [Neurontin] 100 mg PO TID #30 cap 07/27/20 [Rx] HYDROcodone/APAP 7.5-325MG [Wrens 7.5-325] 1 each PO Q6H PRN #12 tab 07/27/20 [Rx] Metoprolol Tartrate [Lopressor] 50 mg PO BID 30 Days #60 tab 07/27/20 [Rx] hydrALAZINE HCL [Apresoline] 50 mg PO TID@0700,1529,1999 #0 07/27/20 [Rx] predniSONE 10 mg PO DIRECTED #30 tab 07/27/20 [Rx] risperiDONE [RisperDAL] 0.5 mg PO DAILY tab 07/27/20 [Rx] Follow up Appointment(s)/Referral(s): Boni Lyle MD [REFERRING] - 2 Weeks (office to call you with appt. time and date.) Charles Angeles DO [Doctor of Osteopathic Medicine] - 08/10/20 9:45 am Dario Cheema PAC [PHYSICIAN FRUIT CANNER] - As Needed (Patient may follow-up with Dario Cheema PA-C or Dr. Conrado Angeles at [facility] on an as-needed basis following discharge. ) [facility], [NON-STAFF] - As Needed [facility],Clinic [Primary Care Provider] - 1-2 days (please call office to set up appt. time and date.) Ambulatory/Diagnostic Orders: Basic Metabolic Panel [LAB.AMB] Time Frame: 2 Days, Location: None Selected Activity/Diet/Wound Care/Special Instructions: Activity Limited until follow-up Follow-up with primary care provider upon discharge Continue antibiotics until finished The tibial prednisone taper Follow-up with pain management in the outpatient setting Repeat labs in 2-3 days Follow-up with home care in the outpatient setting Continue to monitor blood sugars before meals at bedtime and treat accordingly and also keep a diary for primary care follow-up Continue with heart healthy diabetic diet Discharge Disposition: HOME WITH HOME HEALTH SERVICES
== END 2020-07-27 17:15 | DRG 551 ==
LOC: EC 15:52 → 5NMEDONC 18:48 → OBSVTOIN 07-19 10:03 → 6NMEDSUR 07-21 07:00
PROVIDERS: ADMIT Hospitalist; ATTEND Hospitalist
DX: M47.27 Other spondylosis with radiculopathy, lumbosacral region (principal); N17.0 Acute kidney failure with tubular necrosis; T83.511A Infection and inflammatory reaction due to indwelling urethral catheter, initial encounter; N39.0 Urinary tract infection, site not specified; N18.4 Chronic kidney disease, stage 4 (severe); E87.1 Hypo-osmolality and hyponatremia; E87.2 Acidosis; N25.81 Secondary hyperparathyroidism of renal origin; F05 Delirium due to known physiological condition; K21.9 Gastro-esophageal reflux disease without esophagitis; I25.10 Atherosclerotic heart disease of native coronary artery without angina pectoris; F32.9 Major depressive disorder, single episode, unspecified; F41.9 Anxiety disorder, unspecified; E78.5 Hyperlipidemia, unspecified; N40.0 Benign prostatic hyperplasia without lower urinary tract symptoms; Z96.652 Presence of left artificial knee joint; Z79.4 Long term (current) use of insulin; E89.0 Postprocedural hypothyroidism; E11.22 Type 2 diabetes mellitus with diabetic chronic kidney disease; E11.65 Type 2 diabetes mellitus with hyperglycemia; D63.1 Anemia in chronic kidney disease; M47.816 Spondylosis without myelopathy or radiculopathy, lumbar region; E66.9 Obesity, unspecified; H54.8 Legal blindness, as defined in USA; I12.9 Hypertensive chronic kidney disease with stage 1 through stage 4 chronic kidney disease, or unspecified chronic kidney disease; E83.89 Other disorders of mineral metabolism; E11.42 Type 2 diabetes mellitus with diabetic polyneuropathy; M54.42 Lumbago with sciatica, left side; G47.30 Sleep apnea, unspecified; R32 Unspecified urinary incontinence; Y84.6 Urinary catheterization as the cause of abnormal reaction of the patient, or of later complication, without mention of misadventure at the time of the procedure; M79.18 Myalgia, other site; M46.1 Sacroiliitis, not elsewhere classified; G89.29 Other chronic pain; D72.829 Elevated white blood cell count, unspecified; T38.0X5A Adverse effect of glucocorticoids and synthetic analogues, initial encounter; K80.20 Calculus of gallbladder without cholecystitis without obstruction; M19.90 Unspecified osteoarthritis, unspecified site; Z87.01 Personal history of pneumonia (recurrent); Z79.01 Long term (current) use of anticoagulants; I25.2 Old myocardial infarction; Z79.52 Long term (current) use of systemic steroids; Z79.82 Long term (current) use of aspirin; Z79.890 Hormone replacement therapy; Z79.899 Other long term (current) drug therapy; Z91.013 Allergy to seafood; Z95.5 Presence of coronary angioplasty implant and graft; Z98.42 Cataract extraction status, left eye; Z98.41 Cataract extraction status, right eye; Z98.890 Other specified postprocedural states; Z86.73 Personal history of transient ischemic attack (TIA), and cerebral infarction without residual deficits; Z85.850 Personal history of malignant neoplasm of thyroid; Z80.1 Family history of malignant neoplasm of trachea, bronchus and lung; Z80.0 Family history of malignant neoplasm of digestive organs; Z87.891 Personal history of nicotine dependence; Z68.31 Body mass index [BMI] 31.0-31.9, adult; Z87.19 Personal history of other diseases of the digestive system; Z86.19 Personal history of other infectious and parasitic diseases
CPT/HCPCS: 36415; 51702; 72131; 72148; 72195; 74176; 80048; 80053; 81001; 81003; 82009; 82607; 82746; 82747; 83036; 83605; 83735; 84484; 85025; 85652; 86140; 87077; 87086; 87186; 93005; 96361; 96374; 96376; 99285

== ENCOUNTER 2020-09-27 02:37 | Inpatient (IN) | payer MEDICARE, BC ==
[2020-09-27 03:38] LABS: Basophils # (A) 0.1 k/uL (0-0.2); Basophils % (A) 1 %; Eosinophils # (A) 0.1 k/uL (0-0.7); Eosinophils % (A) 1 %; HCT 37.7 % (39.0-53.0); HGB 11.7 gm/dL (13.0-17.5); Hypochromasia Slight; Lymphocytes # (A) 0.8 k/uL (1.0-4.8); Lymphocytes % (A) 6 %; MCH 31.4 pg (25.0-35.0); MCHC 31.1 g/dL (31.0-37.0); MCV 101.2 fL (80.0-100.0); Macrocytosis Slight; Monocytes # (A) 0.4 k/uL (0-1.0); Monocytes % (A) 3 %; Neutrophils % (A) 89 %; Platelet Count 250 k/uL (150-450); RBC 3.73 m/uL (4.30-5.90); RDW 14.6 % (11.5-15.5); WBC 12.4 k/uL (3.8-10.6)
[2020-09-27 03:47] LABS: Albumin 3.1 g/dL (3.5-5.0); Calcium 8.8 mg/dL (8.4-10.2); Potassium 4.7 mmol/L (3.5-5.1); Total Bilirubin 0.4 mg/dL (0.2-1.3); Total Protein 5.7 g/dL (6.3-8.2)
[2020-09-27 03:53] LABS: SARS-CoV-2 RNA Rapid Abbott Not Detected (Not Detectd)
--- NOTE | 2020-09-27 03:57 | XR ---
EXAM: XR Chest, 1 View CLINICAL HISTORY: ITS.REASON XR Reason: dyspnea - [facility] TECHNIQUE: Frontal view of the chest. COMPARISON: Compared to 12/08/2018. FINDINGS: Lungs: Minimal patchy airspace disease at the lung bases possibly on the basis of early pneumonias. Pleural space: Unremarkable. No pneumothorax. Heart: Mild cardiomegaly. Mediastinum: Unremarkable. Bones/joints: Osteopenia. Vasculature: Atherosclerotic disease. Other findings: There is hypoaeration, albeit to a slightly lesser extent than on the previous study. IMPRESSION: 1. Hypoaeration. 2. Mild cardiomegaly. 3. Patchy airspace disease at the lung bases, possibly on the basis of by basilar pneumonias. 4. Atypical pneumonia such as Covid-19 pneumonia cannot be entirely excluded and clinical correlation is advised. 5. Osteopenia.
--- NOTE | 2020-09-27 04:30 | ED ---
SOB HPI - General Chief Complaint: Shortness of Breath Stated Complaint: WILLIAM Time Seen by Provider: 09/27/20 02:40 Source: patient, EMS Mode of arrival: EMS Limitations: no limitations - History of Present Illness Initial Comments: Ortiz an 85-year-old woman with a history of COPD who presents the ER today via EMS from longterm for evaluation of shortness of breath. Per EMS the patient's oxygen saturation was in the low 80s upon their arrival, he was given 2 breathing treatments and steroids and route to the hospital with improvement in shortness of breath. Upon arrival patient reports he's feeling much better. He does admit that he still fatigued and had some bodyaches for the past couple days. Denies nausea vomiting chest pain palpitations or change in bowel or bladder habits. - Related Data Home Medications Medication Instructions Recorded Confirmed Citalopram Hydrobromide 40 mg PO DAILY@1530 09/29/14 07/17/20 [Citalopram HBr] Levothyroxine Sodium [Synthroid] 88 mcg PO QA 09/29/14 07/17/20 Omeprazole [PriLOSEC] 20 mg PO BID@0700,1530 09/29/14 07/17/20 Tamsulosin HCl [Flomax] 0.4 mg PO HS@199911/07/18 07/17/20 Vit C/E/Zn/Coppr/Lutein/Zeaxan 1 cap PO BID@0700,1530 11/07/18 07/17/20 [Preservision Areds 2 Softgel] Acetaminophen [Tylenol] 650 mg PO Q4H PRN 11/26/18 07/17/20 Melatonin 3 mg PO HS 11/26/18 07/17/20 buPROPion [Wellbutrin] 150 mg PO HS 11/26/18 07/17/20 Kelly-Lanta 30 ml PO Q6H PRN 12/15/18 07/17/20 cycloSPORINE [Restasis] 1 drop BOTH EYES BID PRN 12/15/18 07/17/20 Apixaban [Eliquis] 2.5 mg PO BID@0700,1530 07/17/20 07/17/20 Aspirin 325 mg PO DAILY@1530 07/17/20 07/17/20 Calcitriol [Rocaltrol] 0.25 mcg PO Q7D 07/17/20 07/17/20 Docusate [Colace] 100 mg PO DAILY PRN 07/17/20 07/17/20 Ferrous Sulfate [Iron] 325 mg PO HS 07/17/20 07/17/20 Finasteride [Proscar] 5 mg PO QAM 07/17/20 07/17/20 Kelly-Pectate Suspension 262mg/15ml 262 mg PO Q4H PRN 07/17/20 07/17/20 Oxybutynin Chloride [Ditropan] 2.5 mg PO BID@0700,1530 07/17/20 07/17/20 Sennosides-Docusate Sodium 1 each PO BID@0700,1530 07/17/20 07/17/20 [Senokot-S] Simvastatin [Zocor] 40 mg PO HS@199907/17/20 07/17/20 glipiZIDE [Glucotrol] 10 mg PO ACHS 07/17/20 07/17/20 hydrOXYzine pamoate [hydrOXYzine 25 mg PO HS 07/17/20 07/17/20 PAMOATE] Previous Rx's Medication Instructions Recorded Dicyclomine [Bentyl] 10 mg PO TID #0 cap 12/25/18 Cephalexin [Keflex] 500 mg PO Q8HR 5 Days #15 cap 07/27/20 Gabapentin [Neurontin] 100 mg PO TID #30 cap 07/27/20 HYDROcodone/APAP 7.5-325MG [[place] 1 each PO Q6H PRN #12 tab 07/27/20 7.5-325] INSULIN ASPART (NovoLOG) [NovoLOG 0 unit SQ ACHS vial 07/27/20 (formulary)] Insulin Detemir (Levemir) [Levemir] 20 unit SQ DAILY@0700 syr 07/27/20 Melatonin 3 mg PO HS tablet 07/27/20 Metoprolol Tartrate [Lopressor] 50 mg PO BID 30 Days #60 tab 07/27/20 hydrALAZINE HCL [Apresoline] 50 mg PO TID@0700,1529,1999 #0 07/27/20 predniSONE 10 mg PO DIRECTED #30 tab 07/27/20 risperiDONE [RisperDAL] 0.5 mg PO DAILY tab 07/27/20 Allergies Allergy/AdvReac Type Severity Reaction Status Date / Time shellfish derived [Shellfish] AdvReac Rash/Hives Verified 09/27/20 02:45 Review of Systems ROS Statement: Those systems with pertinent positive or pertinent negative responses have been documented in the HPI. ROS Other: All systems not noted in ROS Statement are negative. Past Medical History Past Medical History: Coronary Artery Disease (CAD), Cancer, Diabetes Mellitus, GERD/Reflux, Hyperlipidemia, Hypertension, Myocardial Infarction ([place]), Pneumonia, Prostate Disorder, Sleep Apnea/CPAP/BIPAP, Thyroid Disorder Additional Past Medical History / Comment(s): no CPAP used, hiatal hernia, hx thyroid cancer, macular degeneration danielle eyes Last Myocardial Infarction Date:: 1999 History of Any Multi-Drug Resistant Organisms: None Reported Past Surgical History: Heart Catheterization With Stent, Joint Replacement Additional Past Surgical History / Comment(s): left knee replacement, danielle cataracts, thyroidectomy Past Anesthesia/Blood Transfusion Reactions: No Reported Reaction Additional Past Anesthesia/Blood Transfusion Reaction / Comment(s): cla usterphobia -"uses open mri" Date of Last Stent Placement:: 1999 Past Psychological History: Anxiety, Depression, Schizophrenia Smoking Status: Former smoker Past Alcohol Use History: None Reported Past Drug Use History: None Reported - Past Family History Father Family Medical History: Cancer Additional Family Medical History / Comment(s): Father had lung cancer and colorectal cancer. He smoked as a younger man. Mother Family Medical History: Cancer Additional Family Medical History / Comment(s): Mother had lung cancer. She was a lifelong smoker General Exam - General Exam Comments Initial Comments: Physical Exam GENERAL: chronically ill-appearing gentleman, tachypneic HENT: Normocephalic, Atraumatic. EYES: PERRL, EOMI PULMONARY: Tachypnea CARDIOVASCULAR: There is a regular rate and rhythm without any murmurs gallops or rubs. ABDOMEN: Soft and nontender with normal bowel sounds. SKIN: Skin is clear with no lesions or rashes and otherwise unremarkable. : Deferred NEUROLOGIC: Patient is alert and oriented x3. Moving all extremities spontaneously MUSCULOSKELETAL: Normal extremities with adequate strength and full range of motion. No lower extremity swelling or edema. No calf tenderness. PSYCHIATRIC: Normal psychiatric evaluation. Limitations: no limitations Course Vital Signs 09/27/20 09/27/20 09/27/20 02:37 02:50 03:45 Temperature 97.9 F Pulse Rate 80 71 Respiratory 20 22 20 Rate Blood Pressure 156/75 144/65 O2 Sat by Pulse 98 97 Oximetry 09/27/20 09/27/20 09/27/20 04:00 05:00 06:00 Temperature Pulse Rate 71 78 74 Respiratory 20 20 20 Rate Blood Pressure 150/67 133/79 163/78 O2 Sat by Pulse 97 95 97 Oximetry 09/27/20 07:00 Temperature Pulse Rate 74 Respiratory 18 Rate Blood Pressure 198/84 O2 Sat by Pulse 97 Oximetry Medical Decision Making - Medical Decision Making The patient was seen and evaluated history is obtained from the patient and EMS and longterm Patient has had exposure to COVID 19 COVID 19 workup was initiated labs and chest x-ray are consistent with COVID 19 though the patient's rapid test was negative I suspect that this is a false negative Given the patient's advanced age, comorbidities including COPD, profound hypoxia with oxygen saturation of 80% upon EMS arrival despite being compliant with nasal cannula oxygen at longterm I do feel the patient is too high risk to be discharged back to longterm and requires admission to the hospital for close oxygen monitoring, frequent breathing treatments, steroids and further management of likely COVID 19 - Lab Data Result diagrams: 09/27/20 03:22 09/27/20 03:22 Lab Results 09/27/20 09/27/20 09/27/20 Range/Units 03:22 03:22 03:22 WBC 12.4 H (3.8-10.6) k/uL RBC 3.73 L (4.30-5.90) m/uL Hgb 11.7 L (13.0-17.5) gm/dL Hct 37.7 L (39.0-53.0) % MCV 101.2 H (80.0-100.0) fL MCH 31.4 (25.0-35.0) pg MCHC 31.1 (31.0-37.0) g/dL RDW 14.6 (11.5-15.5) % Plt Count 250 (150-450) k/uL Neutrophils % 89 % Lymphocytes % 6 % Monocytes % 3 % Eosinophils % 1 % Basophils % 1 % Neutrophils # 11.0 H (1.3-7.7) k/uL Lymphocytes # 0.8 L (1.0-4.8) k/uL Monocytes # 0.4 (0-1.0) k/uL Eosinophils # 0.1 (0-0.7) k/uL Basophils # 0.1 (0-0.2) k/uL Hypochromasia Slight Macrocytosis Slight Sodium 137 (137-145) mmol/L Potassium 4.7 (3.5-5.1) mmol/L Chloride 107 (98-107) mmol/L Carbon Dioxide 26 (22-30) mmol/L Anion Gap 4 mmol/L BUN 28 H (9-20) mg/dL Creatinine 1.57 H (0.66-1.25) mg/dL Est GFR (CKD-EPI)AfAm 47 (>60 ml/min/1.73 sqM) Est GFR (CKD-EPI)NonAf 40 (>60 ml/min/1.73 sqM) Glucose 270 H (74-99) mg/dL Calcium 8.8 (8.4-10.2) mg/dL Total Bilirubin 0.4 (0.2-1.3) mg/dL AST 20 (17-59) U/L ALT 12 (4-49) U/L Alkaline Phosphatase 82 (38-126) U/L Lactate Dehydrogenase (313-618) U/L C-Reactive Protein (<10.0) mg/L NT-Pro-B Natriuret Pep 09830 pg/mL Total Protein 5.7 L (6.3-8.2) g/dL Albumin 3.1 L (3.5-5.0) g/dL Coronavirus (PCR) (Not Detectd) Influenza Type A RNA (Not Detectd) Influenza Type B (PCR) (Not Detectd) 09/27/20 09/27/20 Range/Units 03:22 04:45 WBC (3.8-10.6) k/uL RBC (4.30-5.90) m/uL Hgb (13.0-17.5) gm/dL Hct (39.0-53.0) % MCV (80.0-100.0) fL MCH (25.0-35.0) pg MCHC (31.0-37.0) g/dL RDW (11.5-15.5) % Plt Count (150-450) k/uL Neutrophils % % Lymphocytes % % Monocytes % % Eosinophils % % Basophils % % Neutrophils # (1.3-7.7) k/uL Lymphocytes # (1.0-4.8) k/uL Monocytes # (0-1.0) k/uL Eosinophils # (0-0.7) k/uL Basophils # (0-0.2) k/uL Hypochromasia Macrocytosis Sodium (137-145) mmol/L Potassium (3.5-5.1) mmol/L Chloride (98-107) mmol/L Carbon Dioxide (22-30) mmol/L Anion Gap mmol/L BUN (9-20) mg/dL Creatinine (0.66-1.25) mg/dL Est GFR (CKD-EPI)AfAm (>60 ml/min/1.73 sqM) Est GFR (CKD-EPI)NonAf (>60 ml/min/1.73 sqM) Glucose (74-99) mg/dL Calcium (8.4-10.2) mg/dL Total Bilirubin (0.2-1.3) mg/dL AST (17-59) U/L ALT (4-49) U/L Alkaline Phosphatase (38-126) U/L Lactate Dehydrogenase 504 (313-618) U/L C-Reactive Protein 10.0 H (<10.0) mg/L NT-Pro-B Natriuret Pep pg/mL Total Protein (6.3-8.2) g/dL Albumin (3.5-5.0) g/dL Coronavirus (PCR) Not Detected (Not Detectd) Influenza Type A RNA Not Detected (Not Detectd) Influenza Type B (PCR) Not Detected (Not Detectd) - EKG Data -: EKG Interpreted by Me EKG Comments: history obtained due to complaint of shortness of breath, EKG obtained at 2:55 AM, rate is 75 rhythm is sinus normal axis, normal intervals ID 150 QRS 86 QTC [address] elevations or depressions no other acute ischemia or infarction PVC noted. Disposition Clinical Impression: COVID-19, COPD (chronic obstructive pulmonary disease) Disposition: ADMITTED IP TO THIS HOSP Condition: Serious
[2020-09-27] MEDS ORDERED: dexAMETHasone 4 MG TAB PO STA (04:51)
[2020-09-27 05:27] LABS: Glucose,Whole Blood 292 mg/dL (75-99)
[2020-09-27] MEDS ORDERED: INSULIN ASPART (NovoLOG) 100 UNIT/ML VIAL SQ SCH ×2 (07:30→12:30)
[2020-09-27] MEDS ORDERED: BUDESONIDE 0.5 MG/2 ML NEBU INHALATION SCH (08:00)
[2020-09-27 08:27] LABS: Glucose,Whole Blood 331 mg/dL (75-99)
[2020-09-27] MEDS: IPRATROPIUM-ALBUTEROL 3 ML NEB INHALATION SCH ×2 (08:28→11:19)
[2020-09-27] MEDS ORDERED: ACETAMINOPHEN TAB 500 MG TAB PO PRN (09:51)
[2020-09-27] MEDS ORDERED: cycloSPORINE 0.05% OPHTH 0.4 ML DROPERETTE BOTH EYES PRN (09:51)
[2020-09-27] MEDS ORDERED: SENNOSIDES-DOCUSATE SODIUM 1 EACH TAB PO PRN (09:51)
[2020-09-27] MEDS ORDERED: MAGNESIUM HYDROXIDE 2,400 MG/10 ML CUP PO PRN (10:04)
[2020-09-27 10:16] LABS: Ferritin 106.2 ng/mL (22.0-322.0)
[2020-09-27] MEDS ORDERED: LEVOTHYROXINE 88 MCG TAB PO SCH (10:30)
[2020-09-27] MEDS ORDERED: METOPROLOL TARTRATE 25 MG TAB PO SCH (10:30)
[2020-09-27] MEDS ORDERED: PANTOPRAZOLE 40 MG TABLET PO SCH (10:30)
[2020-09-27] MEDS ORDERED: buPROPion XL 150 MG TAB.ER.24H PO SCH (10:30)
[2020-09-27] MEDS ORDERED: APIXABAN 2.5 MG TABLET PO SCH (10:30)
[2020-09-27] MEDS ORDERED: FINASTERIDE 5 MG TAB PO SCH (10:30)
[2020-09-27] MEDS ORDERED: CITALOPRAM HYDROBROMIDE 20 MG TAB PO SCH (10:30)
[2020-09-27] MEDS ORDERED: ASPIRIN 81 MG PO SCH (10:30)
[2020-09-27] MEDS ORDERED: hydrALAZINE HCL 25 MG TAB PO SCH (11:00)
[2020-09-27 12:36] VITALS: BP 170/80; PULSE 74; RESP 16; TEMP 98.2
--- NOTE | 2020-09-27 15:08 | P.DS ---
Providers Date of admission: 09/27/20 04:48 Attending physician: Raysa Guajardo Primary care physician: [facility] Course: Refer to [facility] for further details Patient Condition at Discharge: Serious Plan - Discharge Summary New Discharge Prescriptions: New Insulin Detemir (Levemir) [Levemir] 30 unit SQ DAILY syr Doxycycline Monohydrate [Monodox] 100 mg PO Q12HR #6 cap INSULIN ASPART (NovoLOG) [NovoLOG (formulary)] 10 unit SQ AC-TID vial INSULIN ASPART (NovoLOG) [NovoLOG (formulary)] 0 unit SQ ACHS vial predniSONE 10 mg PO DAILY #30 tab Ipratropium-Albuterol Nebulize [Duoneb 0.5 mg-3 mg/3 ml Soln] 3 ml INHALATION RT-QID ml Continue Citalopram Hydrobromide [Citalopram HBr] 40 mg PO DAILY Levothyroxine Sodium [Synthroid] 88 mcg PO QAM Tamsulosin HCl [Flomax] 0.4 mg PO HS Melatonin 6 mg PO HS cycloSPORINE [Restasis] 1 drop BOTH EYES BID PRN PRN Reason: dry eyes Kelly-L[place] 30 ml PO Q6H PRN PRN Reason: Gi Upset Kelly-Pectate Suspension 262mg/15ml 262 mg PO Q4H PRN PRN Reason: LOOSE STOOLS Finasteride [Proscar] 5 mg PO DAILY Sennosides-Docusate Sodium [Senokot-S] 2 tab PO DAILY Apixaban [Eliquis] 2.5 mg PO BID Calcitriol [Rocaltrol] 0.25 mcg PO PHAN Acetaminophen Tab [Tylenol] 1,000 mg PO TID PRN PRN Reason: Pain risperiDONE [RisperDAL] 0.5 mg PO HS Metoprolol Tartrate [Lopressor] 25 mg PO BID Lansoprazole [Prevacid] 15 mg PO BID Magnesium Hydroxide [Milk of Magnesia] 2,400 mg PO DAILY PRN PRN Reason: Constipation hydrALAZINE HCL [Apresoline] 25 mg PO TID buPROPion HCL [Wellbutrin XL] 150 mg PO DAILY Aspirin 81 mg PO DAILY Discontinued INSULIN ASPART (NovoLOG) [NovoLOG (formulary)] 7 unit SQ AC-TID Insulin Detemir (Levemir) [Levemir] 20 unit SQ DAILY LORazepam [Ativan] 0.5 mg PO HS Discharge Medication List Citalopram Hydrobromide [Citalopram HBr] 40 mg PO DAILY 09/29/14 [History] Levothyroxine Sodium [Synthroid] 88 mcg PO QAM 09/29/14 [History] Tamsulosin HCl [Flomax] 0.4 mg PO HS 11/07/18 [History] Melatonin 6 mg PO HS 11/26/18 [History] Kelly-Lanta 30 ml PO Q6H PRN 12/15/18 [History] cycloSPORINE [Restasis] 1 drop BOTH EYES BID PRN 12/15/18 [History] Apixaban [Eliquis] 2.5 mg PO BID 07/17/20 [History] Calcitriol [Rocaltrol] 0.25 mcg PO PHAN 07/17/20 [History] Finasteride [Proscar] 5 mg PO DAILY 07/17/20 [History] Kelly-Pectate Suspension 262mg/15ml 262 mg PO Q4H PRN 07/17/20 [History] Sennosides-Docusate Sodium [Senokot-S] 2 tab PO DAILY 07/17/20 [History] Acetaminophen Tab [Tylenol] 1,000 mg PO TID PRN 09/27/20 [History] Aspirin 81 mg PO DAILY 09/27/20 [History] Doxycycline Monohydrate [Monodox] 100 mg PO Q12HR #6 cap 09/27/20 [Rx] INSULIN ASPART (NovoLOG) [NovoLOG (formulary)] 0 unit SQ ACHS vial 09/27/20 [Rx] INSULIN ASPART (NovoLOG) [NovoLOG (formulary)] 10 unit SQ AC-TID vial 09/27/20 [Rx] Insulin Detemir (Levemir) [Levemir] 30 unit SQ DAILY syr 09/27/20 [Rx] Ipratropium-Albuterol Nebulize [Duoneb 0.5 mg-3 mg/3 ml Soln] 3 ml INHALATION RT-QID ml 09/27/20 [Rx] Lansoprazole [Prevacid] 15 mg PO BID 09/27/20 [History] Magnesium Hydroxide [Milk of Magnesia] 2,400 mg PO DAILY PRN 09/27/20 [History] Metoprolol Tartrate [Lopressor] 25 mg PO BID 09/27/20 [History] buPROPion HCL [Wellbutrin XL] 150 mg PO DAILY 09/27/20 [History] hydrALAZINE HCL [Apresoline] 25 mg PO TID 09/27/20 [History] predniSONE 10 mg PO DAILY #30 tab 09/27/20 [Rx] risperiDONE [RisperDAL] 0.5 mg PO HS 09/27/20 [History] Follow up Appointment(s)/Referral(s): Phoenix Parker MD [Primary Care Provider] - 1-2 Days Discharge Disposition: TRANSFER TO SNF/ECF
--- NOTE | 2020-09-27 15:08 | P.HPIM ---
History of Present Illness Patient is a pleasant 85-year-old the male is admitted for COPD exacerbation. Patient wasn't discharged as of breath patient does use 2 L of onset at home patient saturations K were down to 80%. When I valid the patient patient the wheezing significant improved, patient has mildly diminished air entry into bilateral lung tyler saturating well on 2 L of falls and which he uses at home. Patient is a transfer from [facility]. Patient will be discharged back there. Initially there was a concern of cough: Covid 19 which was ruled out patient was having cough with some sputum production because of which patient will be discharged on doxycycline chest x-ray did not show any significant pneumonia. Review of Systems REVIEW OF SYSTEMS: CONSTITUTIONAL: No fever, no malaise, no fatigue. HEENT: No recent visual problems or hearing problems. Denied any sore throat. CARDIOVASCULAR: No chest pain, orthopnea, PND, no palpitations, no syncope. PULMONARY: no hemoptysis. GASTROINTESTINAL: No diarrhea, no nausea, no vomiting, no abdominal pain. NEUROLOGICAL: No headaches, no weakness, no numbness. HEMATOLOGICAL: Denies any bleeding or petechiae. GENITOURINARY: Denies any burning micturition, frequency, or urgency. MUSCULOSKELETAL/RHEUMATOLOGICAL: Denies any joint pain, swelling, or any muscle pain. ENDOCRINE: Denies any polyuria or polydipsia. The rest of the 14-point review of systems is negative. Past Medical History Past Medical History: Coronary Artery Disease (CAD), Cancer, Diabetes Mellitus, GERD/Reflux, Hyperlipidemia, Hypertension, Myocardial Infarction ([place]), Pneumonia, Prostate Disorder, Sleep Apnea/CPAP/BIPAP, Thyroid Disorder Additional Past Medical History / Comment(s): no CPAP used, hiatal hernia, hx thyroid cancer, macular degeneration danielle eyes Last Myocardial Infarction Date:: 1999 History of Any Multi-Drug Resistant Organisms: None Reported Past Surgical History: Heart Catheterization With Stent, Joint Replacement Additional Past Surgical History / Comment(s): left knee replacement, danielle cataracts, thyroidectomy Past Anesthesia/Blood Transfusion Reactions: No Reported Reaction Additional Past Anesthesia/Blood Transfusion Reaction / Comment(s): clausterphobia -"uses open mri" Date of Last Stent Placement:: 1999 Past Psychological History: Anxiety, Depression, Schizophrenia Smoking Status: Former smoker Past Alcohol Use History: None Reported Past Drug Use History: None Reported - Past Family History Father Family Medical History: Cancer Additional Family Medical History / Comment(s): Father had lung cancer and c olorectal cancer. He smoked as a younger man. Mother Family Medical History: Cancer Additional Family Medical History / Comment(s): Mother had lung cancer. She was a lifelong smoker Medications and Allergies Home Medications Medication Instructions Recorded Confirmed Type Citalopram Hydrobromide 40 mg PO DAILY 09/29/14 09/27/20 History [Citalopram HBr] Levothyroxine Sodium [Synthroid] 88 mcg PO QAM 09/29/14 09/27/20 History Tamsulosin HCl [Flomax] 0.4 mg PO HS 11/07/18 09/27/20 History Melatonin 6 mg PO HS 11/26/18 09/27/20 History Kelly-[place] 30 ml PO Q6H PRN 12/15/18 09/27/20 History cycloSPORINE [Restasis] 1 drop BOTH EYES BID PRN 12/15/18 09/27/20 History Apixaban [Eliquis] 2.5 mg PO BID 07/17/20 09/27/20 History Calcitriol [Rocaltrol] 0.25 mcg PO PHAN 07/17/20 09/27/20 History Finasteride [Proscar] 5 mg PO DAILY 07/17/20 09/27/20 History Kelly-Pectate Suspension 262mg/15ml 262 mg PO Q4H PRN 07/17/20 09/27/20 History Sennosides-Docusate Sodium 2 tab PO DAILY 07/17/20 09/27/20 History [Senokot-S] Acetaminophen Tab [Tylenol] 1,000 mg PO TID PRN 09/27/20 09/27/20 History Aspirin 81 mg PO DAILY 09/27/20 09/27/20 History Doxycycline Monohydrate [Monodox] 100 mg PO Q12HR #6 cap 09/27/20 Rx INSULIN ASPART (NovoLOG) [NovoLOG 0 unit SQ ACHS vial 09/27/20 Rx (formulary)] INSULIN ASPART (NovoLOG) [NovoLOG 10 unit SQ AC-TID vial 09/27/20 Rx (formulary)] Insulin Detemir (Levemir) [Levemir] 30 unit SQ DAILY syr 09/27/20 Rx Ipratropium-Albuterol Nebulize 3 ml INHALATION RT-QID ml 09/27/20 Rx [Duoneb 0.5 mg-3 mg/3 ml Soln] Lansoprazole [Prevacid] 15 mg PO BID 09/27/20 09/27/20 History Magnesium Hydroxide [Milk of 2,400 mg PO DAILY PRN 09/27/20 09/27/20 History Magnesia] Metoprolol Tartrate [Lopressor] 25 mg PO BID 09/27/20 09/27/20 History buPROPion HCL [Wellbutrin XL] 150 mg PO DAILY 09/27/20 09/27/20 History hydrALAZINE HCL [Apresoline] 25 mg PO TID 09/27/20 09/27/20 History predniSONE 10 mg PO DAILY #30 tab 09/27/20 Rx risperiDONE [RisperDAL] 0.5 mg PO HS 09/27/20 09/27/20 History Allergies Allergy/AdvReac Type Severity Reaction Status Date / Time shellfish derived [Shellfish] AdvReac Rash/Hives Verified 09/27/20 08:18 Physical Exam Vitals: Vital Signs Temp Pulse Resp BP Pulse Ox 09/27/20 12:35 98.2 F 74 16 170/80 98 09/27/20 11:35 72 18 177/79 96 09/27/20 11:30 73 09/27/20 11:20 71 09/27/20 09:19 75 18 188/90 97 09/27/20 08:37 78 09/27/20 08:28 80 09/27/20 07:00 74 18 198/84 97 09/27/20 06:00 74 20 163/78 97 09/27/20 05:00 78 20 133/79 95 09/27/20 04:00 71 20 150/67 97 09/27/20 03:45 71 20 144/65 97 09/27/20 02:50 22 09/27/20 02:37 97.9 F 80 20 156/75 98 Intake and Output 09/27/20 09/27/20 09/27/20 06:59 14:59 22:59 Other: Weight 90.718 kg PHYSICAL EXAMINATION: GENERAL: The patient is alert and oriented x3, not in any acute distress. Obese HEENT: Pupils are round and equally reacting to light. EOMI. No scleral icterus. No conjunctival pallor. Normocephalic, atraumatic. No pharyngeal erythema. No thyromegaly. CARDIOVASCULAR: S1 and S2 present. No murmurs, rubs, or gallops. PULMONARY: Chest is clear to auscultation, no wheezing or crackles. mildly Diminished air entry into bilateral lung tyler ABDOMEN: Soft, nontender, nondistended, normoactive bowel sounds. No palpable organomegaly. MUSCULOSKELETAL: No joint swelling or deformity. EXTREMITIES: No cyanosis, clubbing, or pedal edema. NEUROLOGICAL: Gross neurological examination did not reveal any focal deficits. SKIN: No rashes. Results CBC & Chem 7: 09/27/20 03:22 09/27/20 03:22 Labs: Abnormal Lab Results - Last 24 Hours (Table) 09/27/20 09/27/20 09/27/20 Range/Units 03:22 03:22 04:45 WBC 12.4 H (3.8-10.6) k/uL RBC 3.73 L (4.30-5.90) m/uL Hgb 11.7 L (13.0-17.5) gm/dL Hct 37.7 L (39.0-53.0) % MCV 101.2 H (80.0-100.0) fL Neutrophils # 11.0 H (1.3-7.7) k/uL Lymphocytes # 0.8 L (1.0-4.8) k/uL D-Dimer (<0.60) mg/L FEU BUN 28 H (9-20) mg/dL Creatinine 1.57 H (0.66-1.25) mg/dL Glucose 270 H (74-99) mg/dL POC Glucose (mg/dL) (75-99) mg/dL C-Reactive Protein 10.0 H (<10.0) mg/L Total Protein 5.7 L (6.3-8.2) g/dL Albumin 3.1 L (3.5-5.0) g/dL Procalcitonin (0.02-0.09) ng/mL 09/27/20 09/27/20 09/27/20 Range/Units 04:45 05:05 05:23 WBC (3.8-10.6) k/uL RBC (4.30-5.90) m/uL Hgb (13.0-17.5) gm/dL Hct (39.0-53.0) % MCV (80.0-100.0) fL Neutrophils # (1.3-7.7) k/uL Lymphocytes # (1.0-4.8) k/uL D-Dimer 0.74 H (<0.60) mg/L FEU BUN (9-20) mg/dL Creatinine (0.66-1.25) mg/dL Glucose (74-99) mg/dL POC Glucose (mg/dL) 292 H (75-99) mg/dL C-Reactive Protein (<10.0) mg/L Total Protein (6.3-8.2) g/dL Albumin (3.5-5.0) g/dL Procalcitonin 0.12 H (0.02-0.09) ng/mL 09/27/20 Range/Units 08:24 WBC (3.8-10.6) k/uL RBC (4.30-5.90) m/uL Hgb (13.0-17.5) gm/dL Hct (39.0-53.0) % MCV (80.0-100.0) fL Neutrophils # (1.3-7.7) k/uL Lymphocytes # (1.0-4.8) k/uL D-Dimer (<0.60) mg/L FEU BUN (9-20) mg/dL Creatinine (0.66-1.25) mg/dL Glucose (74-99) mg/dL POC Glucose (mg/dL) 331 H (75-99) mg/dL C-Reactive Protein (<10.0) mg/L Total Protein (6.3-8.2) g/dL Albumin (3.5-5.0) g/dL Procalcitonin (0.02-0.09) ng/mL Assessment and Plan Plan: -COPD with acute exacerbation: Patient will be given nontoxic for bronchitis and a weaning dose of steroids and patient will be discharged today Type 2 diabetes mellitus: Patient has uncontrolled blood sugars blood sugars are excellent still expected to go up because of this reason I will increase the long-acting insulin dose by 20 units until his done with the steroid and after that he can go back to his previous regimen and titration depending on the blood sugars and aspirin for the physician at the facility. 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 -Depression
[2020-09-27] MEDS ORDERED: TAMSULOSIN 0.4 MG CAP.ER.24H PO SCH (21:00)
[2020-09-27] MEDS ORDERED: MELATONIN 3 MG TABLET PO SCH (21:00)
[2020-09-27] MEDS ORDERED: risperiDONE 0.5 MG TAB PO SCH (21:00)
[2020-09-28] MEDS ORDERED: INSULIN DETEMIR (LEVEMIR) 100 UNIT/ML SYR SQ SCH (09:00)
== END 2020-09-27 12:35 | disposition home or self-care (01) | DRG 191 ==
LOC: EC 02:37 → 4SSUR 04:48
PROVIDERS: ADMIT Internal Medicine; ATTEND Internal Medicine
DX: J44.1 Chronic obstructive pulmonary disease with (acute) exacerbation (principal); J96.12 Chronic respiratory failure with hypercapnia; Z99.81 Dependence on supplemental oxygen; E11.9 Type 2 diabetes mellitus without complications; F20.9 Schizophrenia, unspecified; Z20.828 Contact with and (suspected) exposure to other viral communicable diseases; K21.9 Gastro-esophageal reflux disease without esophagitis; E78.5 Hyperlipidemia, unspecified; E89.0 Postprocedural hypothyroidism; F32.9 Major depressive disorder, single episode, unspecified; F41.9 Anxiety disorder, unspecified; G47.30 Sleep apnea, unspecified; I10 Essential (primary) hypertension; I25.10 Atherosclerotic heart disease of native coronary artery without angina pectoris; I25.2 Old myocardial infarction; N40.0 Benign prostatic hyperplasia without lower urinary tract symptoms; Z79.01 Long term (current) use of anticoagulants; Z79.4 Long term (current) use of insulin; Z79.82 Long term (current) use of aspirin; Z79.890 Hormone replacement therapy; Z79.899 Other long term (current) drug therapy; Z79.52 Long term (current) use of systemic steroids; Z96.652 Presence of left artificial knee joint; Z87.891 Personal history of nicotine dependence; Z91.013 Allergy to seafood; Z85.850 Personal history of malignant neoplasm of thyroid; Z95.5 Presence of coronary angioplasty implant and graft; Z98.42 Cataract extraction status, left eye; Z98.41 Cataract extraction status, right eye; Z87.01 Personal history of pneumonia (recurrent); Z80.0 Family history of malignant neoplasm of digestive organs; Z80.1 Family history of malignant neoplasm of trachea, bronchus and lung
CPT/HCPCS: 36415; 71045; 80053; 82728; 83615; 83880; 84145; 85025; 85379; 86140; 87502; 87635; 93005; 94640; 99285

== ENCOUNTER 2020-10-27 09:42 | Inpatient (IN) | payer MEDICARE, BC ==
--- NOTE | 2020-10-27 10:19 | ED ---
Arrhythmia/Palpitations HPI - General Chief Complaint: Arrhythmia/Palpitations Stated Complaint: AFib with RVR Time Seen by Provider: 10/27/20 09:55 Source: patient, family, RN notes reviewed Mode of arrival: EMS Limitations: physical limitation - History of Present Illness Initial Comments: This 85-year-old male who was sent here from his doctor's office was found have A. fib with RVR. He states she's been having difficulty breathing and peripheral edema for last couple weeks getting worse progressively. No overt chest pain no fevers chills nausea vomiting sweats or other symptoms. MD Complaint: rapid heart beat, atrial fibrillation - Related Data Home Medications Medication Instructions Recorded Confirmed Levothyroxine Sodium [Synthroid] 88 mcg PO DAILY 09/29/14 10/27/20 Tamsulosin HCl [Flomax] 0.4 mg PO HS 11/07/18 10/27/20 Melatonin 6 mg PO HS 11/26/18 10/27/20 Apixaban [Eliquis] 2.5 mg PO BID 07/17/20 10/27/20 Calcitriol [Rocaltrol] 0.25 mcg PO PHAN 07/17/20 10/27/20 Finasteride [Proscar] 5 mg PO DAILY 07/17/20 10/27/20 Aspirin 81 mg PO HS 09/27/20 10/27/20 Lansoprazole [Prevacid] 15 mg PO BID 09/27/20 10/27/20 Magnesium Hydroxide [Milk of 2,400 mg PO DAILY PRN 09/27/20 10/27/20 Magnesia] Metoprolol Tartrate [Lopressor] 25 mg PO BID 09/27/20 10/27/20 buPROPion HCL [Wellbutrin XL] 150 mg PO DAILY 09/27/20 10/27/20 risperiDONE [RisperDAL] 0.5 mg PO HS 09/27/20 10/27/20 Acetaminophen Tab [Tylenol] 650 mg PO QID 10/27/20 10/27/20 Albuterol Nebulized [Ventolin 2.5 mg INHALATION RT-QID PRN 10/27/20 10/27/20 Nebulized] Bismuth Subsalicylate 262 mg PO Q4H PRN 10/27/20 10/27/20 [Pepto-Bismol] DULoxetine HCL [Cymbalta] 60 mg PO DAILY 10/27/20 10/27/20 Fluticasone Nasal [place] [Flonase 2 spr EA NOSTRIL TID@0700,1300,1900 10/27/20 10/27/20 Nasal [place]] Furosemide [Lasix] 20 mg PO BID@0700,1600 10/27/20 10/27/20 INSULIN ASPART (NovoLOG) [NovoLOG 5 unit SQ AC-TID 10/27/20 10/27/20 (formulary)] LORazepam [Ativan] 0.5 mg PO Q4H PRN 10/27/20 10/27/20 Mag Hydrox/Aluminum Hyd/Simeth 30 ml PO Q6H PRN 10/27/20 10/27/20 [Mylanta Maximum Strength Liq] Potassium Chloride ER [K-Dur 10] 10 meq PO DAILY@0700 10/27/20 10/27/20 Sennosides [Senna] 17.2 mg PO DAILY 10/27/20 10/27/20 cycloSPORINE 0.05% OPHTH SOLN 1 drop BOTH EYES BID PRN 10/27/20 10/27/20 [Restasis] hydrALAZINE HCL [Apresoline] 50 mg PO TID@0600,1300,1900 10/27/20 10/27/20 polyethylene glycoL 3350 [Miralax] 17 gm PO DAILY PRN 10/27/20 10/27/20 Previous Rx's Medication Instructions Recorded Insulin Detemir (Levemir) [Levemir] 30 unit SQ DAILY syr 09/27/20 Ipratropium-Albuterol Nebulize 3 ml INHALATION RT-QID ml 09/27/20 [Duoneb 0.5 mg-3 mg/3 ml Soln] Allergies Allergy/AdvReac Type Severity Reaction Status Date / Time shellfish derived [Shellfish] AdvReac Rash/Hives Verified 10/27/20 12:21 Review of Systems ROS Statement: Those systems with pertinent positive or pertinent negative responses have been documented in the HPI. ROS Other: All systems not noted in ROS Statement are negative. Past Medical History Past Medical History: Coronary Artery Disease (CAD), Cancer, Heart Failure, Diabetes Mellitus, GERD/Reflux, Hyperlipidemia, Hypertension, Myocardial Infarction ([place]), Pneumonia, Prostate Disorder, Sleep Apnea/CPAP/BIPAP, Thyroid Disorder Additional Past Medical History / Comment(s): no CPAP used, hiatal hernia, hx thyroid cancer, macular degeneration danielle eyes, pt on 2l 02 Last Myocardial Infarction Date:: 1999 History of Any Multi-Drug Resistant Organisms: None Reported Past Surgical History: Heart Catheterization With Stent, Joint Replacement Additional Past Surgical History / Comment(s): left knee replacement, danielle cataracts, thyroidectomy Past Anesthesia/Blood Transfusion Reactions: No Reported Reaction Additional Past Anesthesia/Blood Transfusion Reaction / Comment(s): clausterphobia -"uses open mri" Date of Last Stent Placement:: 1999 Past Psychological History: Anxiety, Depression, Schizophrenia Smoking Status: Former smoker Past Alcohol Use History: None Reported Past Drug Use History: None Reported - Past Family History Father Family Medical History: Cancer Additional Family Medical History / Comment(s): Father had lung cancer and colorectal cancer. He smoked as a younger man. Mother Family Medical History: Cancer Additional Family Medical History / Comment(s): Mother had lung cancer. She was a lifelong smoker General Exam - General Exam Comments Initial Comments: This is a well-developed well-nourished awake alert oriented 3 male Limitations: physical limitation General appearance: alert, in no apparent distress Head exam: Present: atraumatic, normocephalic, normal inspection Eye exam: Present: normal appearance, PERRL, EOMI. Absent: scleral icterus, conjunctival injection, periorbital swelling ENT exam: Present: normal exam, mucous membranes moist Neck exam: Present: normal inspection, full ROM, other (History of urinary or bruits). Absent: tenderness, meningismus, lymphadenopathy Respiratory exam: Present: decreased breath sounds. Absent: respiratory distress, wheezes, rales, rhonchi, stridor Cardiovascular Exam: Present: tachycardia, irregular rhythm. Absent: systolic murmur, diastolic murmur, rubs, gallop, clicks GI/Abdominal exam: Present: soft, normal bowel sounds. Absent: distended, tenderness, guarding, rebound, rigid Extremities exam: Present: full ROM, normal capillary refill, pedal edema. Absent: tenderness, joint swelling, calf tenderness Back exam: Present: normal inspection Neurological exam: Present: alert, oriented X3, CN II-XII intact Psychiatric exam: Present: normal affect, normal mood Skin exam: Present: warm, dry, intact, normal color. Absent: rash Course Vital Signs 10/27/20 10/27/20 10/27/20 09:48 11:00 11:04 Temperature 98.3 F 98.2 F Pulse Rate 122 H 118 H Respiratory 18 18 24 Rate Blood Pressure 136/64 114/78 O2 Sat by Pulse 99 99 Oximetry 10/27/20 13:00 Temperature Pulse Rate 98 Respiratory 20 Rate Blood Pressure 149/93 O2 Sat by Pulse 100 Oximetry - Reevaluation(s) Reevaluation #1: 10/27/20 14:39 Reevaluation of the patient reveals some improvement in his breathing however he still feels short of breath is supine position. Medical Decision Making - Medical Decision Making I did discuss findings with Dr. schroeder who did come the emergency department see the patient patient will be admitted for evaluation of A. fib RVR with cardiology consultation. - Lab Data Result diagrams: 10/27/20 10:09 10/27/20 10:09 Lab Results 10/27/20 10/27/20 10/27/20 Range/Units 10:09 10:09 10:09 WBC 9.2 (3.8-10.6) k/uL RBC 3.31 L (4.30-5.90) m/uL Hgb 10.9 L (13.0-17.5) gm/dL Hct 34.0 L (39.0-53.0) % MCV 102.8 H (80.0-100.0) fL MCH 33.0 (25.0-35.0) pg MCHC 32.1 (31.0-37.0) g/dL RDW 15.1 (11.5-15.5) % Plt Count 290 (150-450) k/uL MPV 6.9 Neutrophils % 78 % Lymphocytes % 12 % Monocytes % 6 % Eosinophils % 2 % Basophils % 1 % Neutrophils # 7.2 (1.3-7.7) k/uL Lymphocytes # 1.1 (1.0-4.8) k/uL Monocytes # 0.5 (0-1.0) k/uL Eosinophils # 0.2 (0-0.7) k/uL Basophils # 0.0 (0-0.2) k/uL Hypochromasia Slight Macrocytosis Slight PT 11.2 (9.0-12.0) sec INR 1.1 (<1.2) APTT 25.4 (22.0-30.0) sec Sodium 140 (137-145) mmol/L Potassium 4.4 (3.5-5.1) mmol/L Chloride 107 (98-107) mmol/L Carbon Dioxide 27 (22-30) mmol/L Anion Gap 6 mmol/L BUN 36 H (9-20) mg/dL Creatinine 1.86 H (0.66-1.25) mg/dL Est GFR (CKD-EPI)AfAm 38 (>60 ml/min/1.73 sqM) Est GFR (CKD-EPI)NonAf 33 (>60 ml/min/1.73 sqM) Glucose 133 H (74-99) mg/dL Calcium 8.4 (8.4-10.2) mg/dL Magnesium 2.1 (1.6-2.3) mg/dL Total Bilirubin 0.4 (0.2-1.3) mg/dL AST 23 (17-59) U/L ALT 20 (4-49) U/L Alkaline Phosphatase 80 (38-126) U/L Creatine Kinase 60 (55-170) U/L Troponin I (0.000-0.034) ng/mL NT-Pro-B Natriuret Pep pg/mL Total Protein 5.2 L (6.3-8.2) g/dL Albumin 2.9 L (3.5-5.0) g/dL 10/27/20 10/27/20 Range/Units 10:09 10:09 WBC (3.8-10.6) k/uL RBC (4.30-5.90) m/uL Hgb (13.0-17.5) gm/dL Hct (39.0-53.0) % MCV (80.0-100.0) fL MCH (25.0-35.0) pg MCHC (31.0-37.0) g/dL RDW (11.5-15.5) % Plt Count (150-450) k/uL MPV Neutrophils % % Lymphocytes % % Monocytes % % Eosinophils % % Basophils % % Neutrophils # (1.3-7.7) k/uL Lymphocytes # (1.0-4.8) k/uL Monocytes # (0-1.0) k/uL Eosinophils # (0-0.7) k/uL Basophils # (0-0.2) k/uL Hypochromasia Macrocytosis PT (9.0-12.0) sec INR (<1.2) APTT (22.0-30.0) sec Sodium (137-145) mmol/L Potassium (3.5-5.1) mmol/L Chloride (98-107) mmol/L Carbon Dioxide (22-30) mmol/L Anion Gap mmol/L BUN (9-20) mg/dL Creatinine (0.66-1.25) mg/dL Est GFR (CKD-EPI)AfAm (>60 ml/min/1.73 sqM) Est GFR (CKD-EPI)NonAf (>60 ml/min/1.73 sqM) Glucose (74-99) mg/dL Calcium (8.4-10.2) mg/dL Magnesium (1.6-2.3) mg/dL Total Bilirubin (0.2-1.3) mg/dL AST (17-59) U/L ALT (4-49) U/L Alkaline Phosphatase (38-126) U/L Creatine Kinase (55-170) U/L Troponin I 0.059 H* (0.000-0.034) ng/mL NT-Pro-B Natriuret Pep 80412 pg/mL Total Protein (6.3-8.2) g/dL Albumin (3.5-5.0) g/dL - EKG Data -: EKG Interpreted by Me (Atrial fibrillation rapid ventricular response rate 117 QRS 90 QT since QTC) - Radiology Data Radiology results: report reviewed (Imaging reviewed evidence of small pleural effusions and evidence of congestive failure), image reviewed Critical Care Time Critical Care Time: Yes Total Critical Care Time: 37 Critical Care Time: Critical care time included the presentation patient with history physical labs x-rays. Reevaluation the patient discussed with the patient regarding the findings as well as the review of old charting admission orders and documentation of the above Disposition Clinical Impression: Rapid atrial fibrillation, Congestive heart failure, Renal insufficiency syndrome, Elevated troponin I level Disposition: ADMITTED IP TO THIS [facility] Condition: Fair Referrals: Phoenix Parker MD [Primary Care Provider] - 1-2 days
[2020-10-27] MEDS ORDERED: DILTIAZEM DRIP BOLUS FROM BAG 1 MG SOLN IV ONE (10:20)
[2020-10-27] MEDS ORDERED: FUROSEMIDE 10 MG/ML 4 ML VIAL IV STA (10:21)
[2020-10-27 10:35] LABS: Basophils % (A) 1 %; Eosinophils # (A) 0.2 k/uL (0-0.7); Eosinophils % (A) 2 %; HGB 10.9 gm/dL (13.0-17.5); Hypochromasia Slight; Lymphocytes # (A) 1.1 k/uL (1.0-4.8); Lymphocytes % (A) 12 %; MCHC 32.1 g/dL (31.0-37.0); MCV 102.8 fL (80.0-100.0); Macrocytosis Slight; Mean Platelet Volume 6.9; Monocytes # (A) 0.5 k/uL (0-1.0); Monocytes % (A) 6 %; Neutrophils # (A) 7.2 k/uL (1.3-7.7); Neutrophils % (A) 78 %; Platelet Count 290 k/uL (150-450); RBC 3.31 m/uL (4.30-5.90); RDW 15.1 % (11.5-15.5); WBC 9.2 k/uL (3.8-10.6)
--- NOTE | 2020-10-27 10:39 | XR ---
EXAMINATION TYPE: XR chest 2V DATE OF EXAM: 10/27/2020 COMPARISON: Prior chest x-ray 09/27/2020 HISTORY: Dysrhythmia and shortness of breath TECHNIQUE: Frontal and lateral views of the chest are obtained. FINDINGS: Lung volumes are low. No evident pneumothorax. Blunting of the costophrenic angles is pres ent. Heart size is stable. Aorta is dense. Patchy perihilar density is noted. IMPRESSION: Possible basilar effusions. Correlate for edema versus pneumonia.
[2020-10-27 10:44] LABS: INR 1.1 (<1.2); Partial Thromboplastin Time 25.4 sec (22.0-30.0); Prothrombin Time 11.2 sec (9.0-12.0)
[2020-10-27] MEDS ORDERED: DILTIAZEM 125 MG in SODIUM CHLORIDE 0.9% 100 ML IV SCH (10:45)
[2020-10-27 10:51] LABS: Albumin 2.9 g/dL (3.5-5.0); Calcium 8.4 mg/dL (8.4-10.2); Magnesium 2.1 mg/dL (1.6-2.3); Potassium 4.4 mmol/L (3.5-5.1); Total Bilirubin 0.4 mg/dL (0.2-1.3); Total Protein 5.2 g/dL (6.3-8.2)
[2020-10-27] MEDS ORDERED: LORazepam 2 MG/ML INJ IV STA (11:59)
[2020-10-27] MEDS ORDERED: cycloSPORINE 0.05% OPHTH 0.4 ML DROPERETTE BOTH EYES PRN (13:21)
[2020-10-27] MEDS ORDERED: MAGNESIUM HYDROXIDE 2,400 MG/10 ML CUP PO PRN (13:21)
[2020-10-27] MEDS ORDERED: MELATONIN 3 MG TABLET PO PRN (13:21)
[2020-10-27] MEDS ORDERED: polyethylene glycoL 3350 17 GM POWD.PACK PO PRN (13:21)
[2020-10-27] MEDS ORDERED: ALBUTEROL NEBULIZED 2.5 MG/3 ML INHALATION PRN (13:21)
--- NOTE | 2020-10-27 13:30 | P.HPIM ---
History of Present Illness 85-year-old pleasant male was sent in from our cardiology office. As patient was in atrial fibrillation with rapid ventricular rate patient was also having shortness of breath and orthopnea. Patient does have a bilateral pedal edema. Patient doesn't have any history of systolic dysfunction the past does have history of atrial fibrillation is on Eliquis. Patient does have history of COPD uses his 2 L of oxygen at home. Patient is saturating well at this time on 3 L may not require 3 L. Patient denied any fever chills patient and nausea vomiting chest x-ray did show pulmonary edema and small basilar pleural effusions. Patient has mildly elevated troponin denied any chest pain, EKG showing A. fib with rapid ventricular rate. Review of Systems REVIEW OF SYSTEMS: CONSTITUTIONAL: No fever, no malaise, no fatigue. HEENT: No recent visual problems or hearing problems. Denied any sore throat. CARDIOVASCULAR: No chest pain, no palpitations, no syncope. PULMONARY: no cough, no hemoptysis. GASTROINTESTINAL: No diarrhea, no nausea, no vomiting, no abdominal pain. NEUROLOGICAL: No headaches, no weakness, no numbness. HEMATOLOGICAL: Denies any bleeding or petechiae. GENITOURINARY: Denies any burning micturition, frequency, or urgency. MUSCULOSKELETAL/RHEUMATOLOGICAL: Denies any joint pain, swelling, or any muscle pain. ENDOCRINE: Denies any polyuria or polydipsia. The rest of the 14-point review of systems is negative. Past Medical History Past Medical History: Coronary Artery Disease (CAD), Cancer, Heart Failure, Diabetes Mellitus, GERD/Reflux, Hyperlipidemia, Hypertension, Myocardial Infarction ([place]), Pneumonia, Prostate Disorder, Sleep Apnea/CPAP/BIPAP, Thyroid Disorder Additional Past Medical History / Comment(s): no CPAP used, hiatal hernia, hx thyroid cancer, macular degeneration danielle eyes, pt on 2l 02 Last Myocardial Infarction Date:: 1999 History of Any Multi-Drug Resistant Organisms: None Reported Past Surgical History: Heart Catheterization With Stent, Joint Replacement Additional Past Surgical History / Comment(s): left knee replacement, danielle cataracts, thyroidectomy Past Anesthesia/Blood Transfusion Reactions: No Reported Reaction Additional Past Anesthesia/Blood Transfusion Reaction / Comment(s): clausterphobia -"uses open mri" Date of Last Stent Placement:: 1999 Past Psychological History: Anxiety, Depression, Schizophrenia Smoking Status: Former smoker Past Alcohol Use History: None Reported Past Drug Use History: None Reported - Past Family History Father Family Medical History: Cancer Additional Family Medical History / Comment(s): Father had lung cancer and colorectal cancer. He smoked as a younger man. Mother Family Medical History: Cancer Additional Family Medical History / Comment(s): Mother had lung cancer. She was a lifelong smoker Medications and Allergies Home Medications Medication Instructions Recorded Confirmed Type Levothyroxine Sodium [Synthroid] 88 mcg PO DAILY 09/29/14 10/27/20 History Tamsulosin HCl [Flomax] 0.4 mg PO HS 11/07/18 10/27/20 History Melatonin 6 mg PO HS 11/26/18 10/27/20 History Apixaban [Eliquis] 2.5 mg PO BID 07/17/20 10/27/20 History Calcitriol [Rocaltrol] 0.25 mcg PO PHAN 07/17/20 10/27/20 History Finasteride [Proscar] 5 mg PO DAILY 07/17/20 10/27/20 History Aspirin 81 mg PO HS 09/27/20 10/27/20 History Insulin Detemir (Levemir) [Levemir] 30 unit SQ DAILY syr 09/27/20 10/27/20 Rx Ipratropium-Albuterol Nebulize 3 ml INHALATION RT-QID ml 09/27/20 10/27/20 Rx [Duoneb 0.5 mg-3 mg/3 ml Soln] Lansoprazole [Prevacid] 15 mg PO BID 09/27/20 10/27/20 History Magnesium Hydroxide [Milk of 2,400 mg PO DAILY PRN 09/27/20 10/27/20 History Magnesia] Metoprolol Tartrate [Lopressor] 25 mg PO BID 09/27/20 10/27/20 History buPROPion HCL [Wellbutrin XL] 150 mg PO DAILY 09/27/20 10/27/20 History risperiDONE [RisperDAL] 0.5 mg PO HS 09/27/20 10/27/20 History Acetaminophen Tab [Tylenol] 650 mg PO QID 10/27/20 10/27/20 History Albuterol Nebulized [Ventolin 2.5 mg INHALATION RT-QID PRN 10/27/20 10/27/20 History Nebulized] Bismuth Subsalicylate 262 mg PO Q4H PRN 10/27/20 10/27/20 History [Pepto-Bismol] DULoxetine HCL [Cymbalta] 60 mg PO DAILY 10/27/20 10/27/20 History Fluticasone Nasal [place] [Flonase 2 spr EA NOSTRIL TID 10/27/20 10/27/20 History Nasal [place]] Furosemide [Lasix] 20 mg PO BID 10/27/20 10/27/20 History INSULIN ASPART (NovoLOG) [NovoLOG 5 unit SQ AC-TID 10/27/20 10/27/20 History (formulary)] Mag Hydrox/Aluminum Hyd/Simeth 30 ml PO Q6H PRN 10/27/20 10/27/20 History [Mylanta Maximum Strength Liq] Potassium Chloride ER [K-Dur 10] 10 meq PO DAILY 10/27/20 10/27/20 History Sennosides [Senna] 17.2 mg PO DAILY 10/27/20 10/27/20 History cycloSPORINE 0.05% OPHTH SOLN 1 drop BOTH EYES BID PRN 10/27/20 10/27/20 History [Restasis] hydrALAZINE HCL [Apresoline] 50 mg PO TID 10/27/20 10/27/20 History polyethylene glycoL 3350 [Miralax] 17 gm PO DAILY PRN 10/27/20 10/27/20 History Allergies Allergy/AdvReac Type Severity Reaction Status Date / Time shellfish derived [Shellfish] AdvReac Rash/Hives Verified 10/27/20 12:21 Physical Exam Vitals: Vital Signs Temp Pulse Resp BP Pulse Ox 10/27/20 13:00 98 20 149/93 100 10/27/20 11:04 24 10/27/20 11:00 98.2 F 118 H 18 114/78 99 10/27/20 09:48 98.3 F 122 H 18 136/64 99 Intake and Output 10/26/20 10/27/20 10/27/20 22:59 06:59 14:59 Other: Weight 95.254 kg PHYSICAL EXAMINATION: GENERAL: The patient is alert and oriented x3, not in any acute distress. Obese HEENT: Pupils are round and equally reacting to light. EOMI. No scleral icterus. No conjunctival pallor. Normocephalic, atraumatic. No pharyngeal erythema. No thyromegaly. CARDIOVASCULAR: S1 and S2 present. No murmurs, rubs, or gallops. 7 elevated JVD PULMONARY: Patient probably has bibasilar crackles no wheezing ABDOMEN: Soft, nontender, nondistended, normoactive bowel sounds. No palpable organomegaly. MUSCULOSKELETAL: No joint swelling or deformity. EXTREMITIES: No cyanosis, clubbing, or pedal edema. NEUROLOGICAL: Gross neurological examination did not reveal any focal deficits. SKIN: No rashes. Results CBC & Chem 7: 10/27/20 10:10/27/20 10: Labs: Abnormal Lab Results - Last 24 Hours (Table) 10/27/20 10/27/20 10/27/20 Range/Units 10: 10: 10: RBC 3.31 L (4.30-5.90) m/uL Hgb 10.9 L (13.0-17.5) gm/dL Hct 34.0 L (39.0-53.0) % MCV 102.8 H (80.0-100.0) fL BUN 36 H (9-20) mg/dL Creatinine 1.86 H (0.66-1.25) mg/dL Glucose 133 H (74-99) mg/dL Troponin I 0.059 H* (0.000-0.034) ng/mL Total Protein 5.2 L (6.3-8.2) g/dL Albumin 2.9 L (3.5-5.0) g/dL Assessment and Plan Plan: Congestive heart failure possibly chronic diastolic dysfunction with acute exacerbation patient was started on 60 mg IV twice a day of Lasix with kidney function monitored and electrolyte monitoring. Cardiology was consulted. Echocardiogram will be obtained -Atrial fibrillation with rapid ventricular rate patient is presently on Cardizem drip usually uses 25 mg twice a day of metoprolol patient was started 50 twice a day and try to wean off Cardizem. 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 -Gastroesophageal reflux disease -Hypertension -Hyperlipidemia -Sleep apnea uses CPAP machine -Benign prostatic hypertrophy -Hypothyroidism -Depression For above-mentioned chronic medical problems patient will be resumed on appropriate home medications
[2020-10-27] MEDS: hydrALAZINE HCL 50 MG TAB PO SCH ×2 (15:50→21:40)
[2020-10-27] MEDS: METOPROLOL TARTRATE 50 MG TAB PO SCH ×2 (15:50→21:44)
[2020-10-27] MEDS: ACETAMINOPHEN TAB 325 MG TAB PO SCH ×2 (15:50→21:40)
[2020-10-27 17:32] LABS: Glucose,Whole Blood 147 mg/dL (75-99)
[2020-10-27] MEDS: IPRATROPIUM-ALBUTEROL 3 ML NEB INHALATION SCH ×2 (18:02→20:20)
[2020-10-27] MEDS: INSULIN ASPART (NovoLOG) 100 UNIT/ML VIAL SQ SCH (18:05)
[2020-10-27 20:28] LABS: Glucose,Whole Blood 182 mg/dL (75-99)
[2020-10-27] MEDS: FUROSEMIDE 10 MG/ML 10 ML VIAL IV SCH (21:39)
[2020-10-27] MEDS: APIXABAN 2.5 MG TABLET PO SCH (21:39)
[2020-10-27] MEDS: ASPIRIN 81 MG PO SCH (21:40)
[2020-10-27] MEDS: TAMSULOSIN 0.4 MG CAP.ER.24H PO SCH (21:41)
[2020-10-27] MEDS: risperiDONE 0.5 MG TAB PO SCH (21:42)
[2020-10-28] MEDS: INSULIN DETEMIR (LEVEMIR) 100 UNIT/ML SYR SQ SCH (07:01)
[2020-10-28 07:02] LABS: Glucose,Whole Blood 133 mg/dL (75-99)
[2020-10-28] MEDS: PANTOPRAZOLE 40 MG TABLET PO SCH (07:02)
[2020-10-28] MEDS: INSULIN ASPART (NovoLOG) 100 UNIT/ML VIAL SQ SCH ×3 (07:02→17:28)
[2020-10-28] MEDS: IPRATROPIUM-ALBUTEROL 3 ML NEB INHALATION SCH ×4 (08:32→21:22)
[2020-10-28] MEDS: DULoxetine HCL 60 MG CAPSULE.DR PO SCH (08:40)
[2020-10-28] MEDS: hydrALAZINE HCL 50 MG TAB PO SCH ×3 (08:40→21:55)
[2020-10-28] MEDS: APIXABAN 2.5 MG TABLET PO SCH ×2 (08:40→21:55)
[2020-10-28] MEDS: ACETAMINOPHEN TAB 325 MG TAB PO SCH ×4 (08:40→21:58)
[2020-10-28] MEDS: METOPROLOL TARTRATE 50 MG TAB PO SCH (08:41)
[2020-10-28] MEDS: POTASSIUM CHLORIDE ER 10 MEQ TAB.ER.PRT PO SCH (08:41)
[2020-10-28] MEDS: FUROSEMIDE 10 MG/ML 10 ML VIAL IV SCH ×2 (08:41→21:55)
[2020-10-28] MEDS: FINASTERIDE 5 MG TAB PO SCH (08:41)
[2020-10-28] MEDS: buPROPion XL 150 MG TAB.ER.24H PO SCH (08:42)
[2020-10-28 08:46] LABS: Potassium 4.1 mmol/L (3.5-5.1)
--- NOTE | 2020-10-28 09:49 | ECHOF ---
Referral Reason:Atrial fibrillation MEASUREMENTS -------- HEIGHT: 180.3 cm WEIGHT: 95.3 kg BP: RVIDd: 2.6 cm (< 3.3) IVSd: 1.8 cm (0.6 - 1.1) LVIDd: 4.3 cm (3.9 - 5.3) LVPWd: 1.5 cm (0.6 - 1.1) IVSs: 2.3 cm LVIDs: 1.9 cm LVPWs: 2.0 cm LAESV Index (A-L): 33.84 ml/m Ao Diam: 2.3 cm (2.0 - 3.7) AV Cusp: 1.6 cm (1.5 - 2.6) LA Diam: 3.9 cm (2.7 - 3.8) RAP: 5.00 mmHg RVSP: 10.99 mmHg FINDINGS -------- Atrial fibrillation. This was a technically difficult study with suboptimal views. The left ventricular size is normal. There is moderate concentric left ventricular hypertrophy. O verall left ventricular systolic function is low-normal with, an EF between 50 - 55 %. Left ventric ular fillimg pressure cannot be estimated due to Atrial fibrillation. The right ventricle is normal in size. LA is midly dilated 29-33ml/m2. The right atrial size is normal. Lumason used The aortic valve is trileaflet and appears structurally normal. The mitral valve is normal. The mitral valve leaflets are mildly thickened. Mild mitral regurgita tion is present. The tricuspid valve appears structurally normal. Mild tricuspid regurgitation present. Right vent ricular systolic pressure is normal at < 35 mmHg. There is no pulmonic regurgitation present. The aortic root size is normal. IVC Not well visulized. There is no pericardial effusion. CONCLUSIONS -------- 1. The left ventricular size is normal. 2. There is moderate concentric left ventricular hypertrophy. 3. Overall left ventricular systolic function is low-normal with, an EF between 50 - 55 %. 4. Left ventricular fillimg pressure cannot be estimated due to Atrial fibrillation. 5. LA is midly dilated 29-33ml/m2. 6. The mitral valve leaflets are mildly thickened. 7. Mild mitral regurgitation is present. 8. Mild tricuspid regurgitation present. 9. There is no pericardial effusion. ROLLER INSPECTOR: Sury Tucker RDCS
[2020-10-28 11:29] VITALS: BMI 35.8
[2020-10-28] MEDS ORDERED: METOPROLOL TARTRATE 50 MG TAB PO STA (11:30)
[2020-10-28] MEDS: SODIUM CHLORIDE 0.9% 1,000 ML IV SCH (11:57)
[2020-10-28 11:58] LABS: Glucose,Whole Blood 117 mg/dL (75-99)
--- NOTE | 2020-10-28 13:47 | P.CRDCN ---
History of Present Illness History of present illness: HISTORY OF PRESENTING ILLNESS This is a pleasant 85-year-old male past medical history significant for artery disease status post PCI to the circumflex artery with a bare metal stent in 1999, ischemic cardiomyopathy, CVA, diabetes mellitus, hypertension, chronic diastolic heart failure and former nicotine dependence. He follows in the office with Dr Wells. We have been asked to see in consultation for atrial fibrillation and shortness of breath. Resides at [facility]. He states for the previous few weeks he has noticed an increase in shortness of breath at rest as well as fluttering in his chest. He had an appointment yesterday to see Dr. Wells in the office and on arrival there he was noted to be in atrial fibrillation with heart rates of 114 with increased lower extremity edema. For this reason he was sent to the emergency room for further evaluation. He is seen and examined sitting up eating breakfast in no acute distress. Telemetry tracings indicate he continues to be in atrial fibrillation with controlled rates in the 70s. Chest x-ray reveals basilar effusions. Laboratory data reviewed, WBC 9.2, hemoglobin 10.7, platelets 290, sodium 140, potassium 4.1, creatinine 1.88, magnesium 2.1, troponin 0.059 and 9T proBNP 19,900. Current daily cardiac medications include Eliquis 2.5 mg twice a day, aspirin 81 mg daily, Lasix 20 mg twice a day, Lopressor 25 mg twice a day and hydralazine 50 mg 3 times a day. Most recent echocardiogram obtained in the office in 2018 revealed mildly impaired LV systolic function with ejection fraction 48% with inferior wall hypokinesia noted. Repeat obtained today reveals preserved LV systolic function with ejection fraction 50-55%. He has been initiated on IV Cardizem along with IV Lasix 60 mg twice a day. Since admission he has put out 1400 mL's of urine. REVIEW OF SYSTEMS At the time of my exam: CONSTITUTIONAL: Denies fever or chills. CARDIOVASCULAR: Denies chest pain, shortness of breath, orthopnea, PND or palpitations. RESPIRATORY: Denies cough. GASTROINTESTINAL: Denies abdominal pain, diarrhea, constipation, nausea or vomiting. MUSCULOSKELETAL: Denies myalgias. NEUROLOGIC: Denies numbness, tingling or weakness. ENDOCRINE: Denies fatigue, weight change, polydipsia or polyurina. GENITOURINARY: Denies burning, hematuria or urgency with micturation. HEMATOLOGIC: Denies history of anemia or bleeding. PHYSICAL EXAMINATION Blood pressure 139/70 heart rate 87 afebrile and maintaining oxygen saturation on nasal cannula. CONSTITUTIONAL: No apparent distress. HEENT: Head is normocephalic. Pupils are equal, round. Sclerae anicteric. Mucous membranes of the mouth are moist. No JVD. No carotid bruit. CHEST EXAMINATION: Lungs are clear to auscultation. No chest wall tenderness is noted on palpation or with deep breathing. HEART EXAMINATION: Irregular rate and rhythm. S1, S2 heard. No murmurs, gallops or rub. ABDOMEN: Soft, nontender. Positive bowel sounds. EXTREMITIES: 2+ peripheral pulses, no lower extremity edema and no calf tenderness. NEUROLOGIC EXAMINATION: Patient is awake, alert and oriented x3. ASSESSMENT Paroxysmal atrial fibrillation with rapid ventricular rate, rates improved currently Acute on chronic diastolic heart failure Coronary artery disease status post PCI CVA Diabetes mellitus Hypertension Obesity, BMI 35 PLAN Continue to diurese with IV lasix. Document accurate intake along with daily weights. Follow renal function and electrolytes in the morning. Discontinue cardizem infusion. Increase lopressor to 75 mg BID. Expect he can be discharged back to [facility] tomorrow. Thank you kindly for this consultation. Nurse Practitioner note has been reviewed, I agree with a documented findings and plan of care. Patient was seen and examined. Past Medical History Past Medical History: Coronary Artery Disease (CAD), Cancer, Heart Failure, Diabetes Mellitus, GERD/Reflux, Hyperlipidemia, Hypertension, Myocardial Infa rction (RI), Pneumonia, Prostate Disorder, Sleep Apnea/CPAP/BIPAP, Thyroid Disorder Additional Past Medical History / Comment(s): no CPAP used, hiatal hernia, hx thyroid cancer, macular degeneration danielle eyes, pt on 2l 02 Last Myocardial Infarction Date:: 1999 History of Any Multi-Drug Resistant Organisms: None Reported Past Surgical History: Heart Catheterization With Stent, Joint Replacement Additional Past Surgical History / Comment(s): left knee replacement, danielle catar acts, thyroidectomy Past Anesthesia/Blood Transfusion Reactions: No Reported Reaction Additional Past Anesthesia/Blood Transfusion Reaction / Comment(s): clausterphobia -"uses open mri" Date of Last Stent Placement:: 1999 Past Psychological History: Anxiety, Depression, Schizophrenia Additional Psychological History / Comment(s): Patient lives at home and helps with care. He uses a walker at home and he uses grab bars. Pt also has been on oxygen since getting to rehab, he normally wears 2 L of oxygen at home. He no longer drives, family can take him to appts. Smoking Status: Former smoker Past Alcohol Use History: None Reported Additional Past Alcohol Use History / Comment(s): Started smoking 1952 and quit 1993 Past Drug Use History: None Reported - Past Family History Father Family Medical History: Cancer Additional Family Medical History / Comment(s): Father had lung cancer and colorectal cancer. He smoked as a younger man. Mother Family Medical History: Cancer Additional Family Medical History / Comment(s): Mother had skin cancer Medications and Allergies Home Medications Medication Instructions Recorded Confirmed Type Levothyroxine Sodium [Synthroid] 88 mcg PO DAILY 09/29/14 10/27/20 History Tamsulosin HCl [Flomax] 0.4 mg PO HS 11/07/18 10/27/20 History Melatonin 6 mg PO HS 11/26/18 10/27/20 History Apixaban [Eliquis] 2.5 mg PO BID 07/17/20 10/27/20 History Calcitriol [Rocaltrol] 0.25 mcg PO PHAN 07/17/20 10/27/20 History Finasteride [Proscar] 5 mg PO DAILY 07/17/20 10/27/20 History Aspirin 81 mg PO HS 09/27/20 10/27/20 History Insulin Detemir (Levemir) [Levemir] 30 unit SQ DAILY syr 09/27/20 10/27/20 Rx Ipratropium-Albuterol Nebulize 3 ml INHALATION RT-QID ml 09/27/20 10/27/20 Rx [Duoneb 0.5 mg-3 mg/3 ml Soln] Lansoprazole [Prevacid] 15 mg PO BID 09/27/20 10/27/20 History Magnesium Hydroxide [Milk of 2,400 mg PO DAILY PRN 09/27/20 10/27/20 History Magnesia] Metoprolol Tartrate [Lopressor] 25 mg PO BID 09/27/20 10/27/20 History buPROPion HCL [Wellbutrin XL] 150 mg PO DAILY 09/27/20 10/27/20 History risperiDONE [RisperDAL] 0.5 mg PO HS 09/27/20 10/27/20 History Acetaminophen Tab [Tylenol] 650 mg PO QID 10/27/20 10/27/20 History Albuterol Nebulized [Ventolin 2.5 mg INHALATION RT-QID PRN 10/27/20 10/27/20 History Nebulized] Bismuth Subsalicylate 262 mg PO Q4H PRN 10/27/20 10/27/20 History [Pepto-Bismol] DULoxetine HCL [Cymbalta] 60 mg PO DAILY 10/27/20 10/27/20 History Fluticasone Nasal [place] [Flonase 2 spr EA NOSTRIL TID@0700,1300,1900 10/27/20 10/27/20 History Nasal [place]] Furosemide [Lasix] 20 mg PO BID@0700,1600 10/27/20 10/27/20 History INSULIN ASPART (NovoLOG) [NovoLOG 5 unit SQ AC-TID 10/27/20 10/27/20 History (formulary)] LORazepam [Ativan] 0.5 mg PO Q4H PRN 10/27/20 10/27/20 History Mag Hydrox/Aluminum Hyd/Simeth 30 ml PO Q6H PRN 10/27/20 10/27/20 History [Mylanta Maximum Strength Liq] Potassium Chloride ER [K-Dur 10] 10 meq PO DAILY@0700 10/27/20 10/27/20 History Sennosides [Senna] 17.2 mg PO DAILY 10/27/20 10/27/20 History cycloSPORINE 0.05% OPHTH SOLN 1 drop BOTH EYES BID PRN 10/27/20 10/27/20 History [Restasis] hydrALAZINE HCL [Apresoline] 50 mg PO TID@0600,1300,1900 10/27/20 10/27/20 History polyethylene glycoL 3350 [Miralax] 17 gm PO DAILY PRN 10/27/20 10/27/20 History Allergies Allergy/AdvReac Type Severity Reaction Status Date / Time shellfish derived [Shellfish] AdvReac Rash/Hives Verified 10/27/20 12:21 Physical Exam Vitals: Vital Signs Temp Pulse Pulse Resp BP BP Pulse Ox 10/28/20 04:00 81 18 110/78 10/28/20 02:00 89 19 10/27/20 23:48 19 115/61 95 10/27/20 20:25 103 H 18 10/27/20 20:15 103 H 18 98 10/27/20 20:00 89 18 125/65 95 10/27/20 18:06 98.1 F 97 24 135/87 98 10/27/20 17:00 95 20 150/85 97 10/27/20 15:53 102 H 24 151/83 100 10/27/20 13:00 98 20 149/93 100 10/27/20 11:04 24 10/27/20 11:00 98.2 F 118 H 18 114/78 99 10/27/20 09:48 98.3 F 122 H 18 136/64 99 Intake and Output 10/27/20 10/28/20 10/28/20 22:59 06:59 14:59 Output Total 1400 Balance -1400 Output: Urine 1400 Other: Voiding Method Indwelling Catheter Indwelling Catheter Weight 95.254 kg 110 kg Results 10/27/20 10:09 10/28/20 08:06 Cardiac Enzymes 10/27/20 10/27/20 Range/Units 10:09 10:09 AST 23 (17-59) U/L Troponin I 0.059 H* (0.000-0.034) ng/mL Coagulation 10/27/20 Range/Units 10:09 PT 11.2 (9.0-12.0) sec APTT 25.4 (22.0-30.0) sec CBC 10/27/20 Range/Units 10:09 WBC 9.2 (3.8-10.6) k/uL RBC 3.31 L (4.30-5.90) m/uL Hgb 10.9 L (13.0-17.5) gm/dL Hct 34.0 L (39.0-53.0) % Plt Count 290 (150-450) k/uL Comprehensive Metabolic Panel 10/27/20 Range/Units 10:09 Sodium 140 (137-145) mmol/L Potassium 4.4 (3.5-5.1) mmol/L Chloride 107 (98-107) mmol/L Carbon Dioxide 27 (22-30) mmol/L BUN 36 H (9-20) mg/dL Creatinine 1.86 H (0.66-1.25) mg/dL Glucose 133 H (74-99) mg/dL Calcium 8.4 (8.4-10.2) mg/dL AST 23 (17-59) U/L ALT 20 (4-49) U/L Alkaline Phosphatase 80 (38-126) U/L Total Protein 5.2 L (6.3-8.2) g/dL Albumin 2.9 L (3.5-5.0) g/dL Current Medications Generic Name Dose Route Start Last Admin Trade Name Freq PRN Reason Stop Dose Admin Acetaminophen 650 mg 10/27/20 15:30 10/27/20 21:40 Acetaminophen Tab 325 Mg Tab PO 650 mg QID NICKIE Administration Albuterol Sulfate 2.5 mg 10/27/20 13:21 Albuterol Nebulized 2.5 Mg/3 Ml INHALATION RT-QID PRN Shortness Of Breath Albuterol/Ipratropium 3 ml 10/27/20 16:00 10/27/20 20:20 Ipratropium-Albuterol 3 Ml Neb INHALATION 3 ml RT-QID NICKIE Administration Apixaban 2.5 mg 10/27/20 21:00 10/27/20 21:39 Apixaban 2.5 Mg Tablet PO 2.5 mg BID NICKIE Administration Aspirin 81 mg 10/27/20 21:00 10/27/20 21:40 Aspirin 81 Mg PO 81 mg HS NICKIE Administration Bupropion HCl 150 mg 10/28/20 09:00 Bupropion Xl 150 Mg Tab.Er.24h PO DAILY NICKIE Calcitriol 0.25 mcg 10/31/20 09:00 Calcitriol 0.25 Mcg Cap PO PHAN NICKIE Cyclosporine 1 drops 10/27/20 13:21 Cyclosporine 0.05% Ophth 0.4 Ml Droperette BOTH EYES BID PRN Dry Eye(s) Duloxetine HCl 60 mg 10/28/20 09:00 Duloxetine Hcl 60 Mg Capsule.Dr PO DAILY NICKIE Finasteride 5 mg 10/28/20 09:00 Finasteride 5 Mg Tab PO DAILY NICKIE Furosemide 60 mg 10/27/20 21:00 12 21:39 Furosemide 10 Mg/Ml 10 Ml Vial IV 60 mg BID NICKIE Administration Hydralazine HCl 50 mg 10/27/20 16:00 10/27/20 21:40 Hydralazine Hcl 50 Mg Tab PO 50 mg TID NICKIE Administration Diltiazem HCl 125 mg/ Sodium 125 mls @ 5 mls/hr 10/27/20 10:45 10/27/20 10:59 Chloride IV 5 mg/hr .Q24H NICKIE 5 mls/hr Administration 5 MG/HR Insulin Aspart 5 unit 10/27/20 17:30 10/28/20 07:02 Insulin Aspart (Novolog) 100 Unit/Ml Vial SQ 5 unit AC-TID NICKIE Administration Insulin Detemir 30 unit 10/28/20 07:00 10/28/20 07:01 Insulin Detemir (Levemir) 100 Unit/Ml Syr SQ 30 unit DAILY@0700 NICKIE Administration Magnesium Hydroxide 2,400 mg 10/27/20 13:21 Magnesium Hydroxide 2,400 Mg/10 Ml Cup PO DAILY PRN Constipation Melatonin 6 mg 10/27/20 13:21 10/28/20 01:05 Melatonin 3 Mg Tablet PO 6 mg HS PRN Administration Insomnia Metoprolol Tartrate 50 mg 10/27/20 13:30 10/27/20 21:44 Metoprolol Tartrate 50 Mg Tab PO 50 mg BID NICKIE Administration Pantoprazole Sodium 40 mg 10/28/20 07:30 10/28/20 07:02 Pantoprazole 40 Mg Tablet PO 40 mg AC-BRKFST NICKIE Administration Polyethylene Glycol 17 gm 10/27/20 13:21 Polyethylene Glycol 3350 17 Gm Powd.Pack PO DAILY PRN Constipation Potassium Chloride 10 meq 10/28/20 09:00 Potassium Chloride Er 10 Meq Tab.Er.Prt PO DAILY NICKIE Risperidone 0.5 mg 10/27/20 21:00 10/27/20 21:42 Risperidone 0.5 Mg Tab PO 0.5 mg HS NICKIE Administration Tamsulosin HCl 0.4 mg 10/27/20 21:00 10/27/20 21:41 Tamsulosin 0.4 Mg Cap.Er.24h PO 0.4 mg HS NICKIE Administration Intake and Output 10/27/20 10/28/20 10/28/20 22:59 06:59 14:59 Output Total 1400 Balance -1400 Output: Urine 1400 Other: Voiding Method Indwelling Catheter Indwelling Catheter Weight 95.254 kg 110 kg 10/27/20 10:09 10/27/20 10:09
--- NOTE | 2020-10-28 13:59 | P.PN ---
Subjective 85-year-old pleasant male was sent in from our cardiology office. As patient was in atrial fibrillation with rapid ventricular rate patient was also having shortness of breath and orthopnea. Patient does have a bilateral pedal edema. Patient doesn't have any history of systolic dysfunction the past does have history of atrial fibrillation is on Eliquis. Patient does have history of COPD uses his 2 L of oxygen at home. Patient is saturating well at this time on 3 L may not require 3 L. Patient denied any fever chills patient and nausea v omiting chest x-ray did show pulmonary edema and small basilar pleural effusions. Patient has mildly elevated troponin denied any chest pain, EKG showing A. fib with rapid ventricular rate. 10/28/2020 Patient is significant improvement in heart failure status will continue with IV Lasix. Patient was evaluated by cardiology. Patient's Cardizem was discontinued. Patient has normal ejection fraction. Patient was started on Lopressor 75 twice a day possibility of discharge tomorrow. Constitutional: Denied any fatigue denied any fever. Cardio vascular: denied any chest pain, palpitations Gastrointestinal denied any nausea vomiting Pulmonary: Significant improvement in shortness of breath Neurologic denied any new focal deficits All inpatient medications were reviewed and appropriate changes in these medications as dictated in the interval history and assessment and plan. Objective - Vital Signs Vital signs: Vital Signs Temp 97.8 F 10/28/20 11:24 Pulse 77 10/28/20 11:24 Resp 20 10/28/20 11:24 BP 130/74 10/28/20 11:24 Pulse Ox 95 10/28/20 11:24 Intake & Output 10/27/20 10/28/20 10/28/20 18:59 06:59 18:59 Intake Total 0 Output Total 1400 Balance -1400 0 Weight 95.254 kg 110 kg 110 kg Intake: Oral 0 Output: Urine 1400 Other: Voiding Method Indwelling Catheter Indwelling Catheter - Exam PHYSICAL EXAMINATION: GENERAL: The patient is alert and oriented x3, not in any acute distress. Obese HEENT: Pupils are round and equally reacting to light. EOMI. No scleral icterus. No conjunctival pallor. Normocephalic, atraumatic. No pharyngeal erythema. No thyromegaly. CARDIOVASCULAR: S1 and S2 present. No murmurs, rubs, or gallops. JVD improved PULMONARY: Patient probably has bibasilar crackles no wheezing ABDOMEN: Soft, nontender, nondistended, normoactive bowel sounds. No palpable organomegaly. MUSCULOSKELETAL: No joint swelling or deformity. EXTREMITIES: No cyanosis, clubbing, significant improvement in peak pedal edema NEUROLOGICAL: Gross neurological examination did not reveal any focal deficits. SKIN: No rashes. - Labs CBC & Chem 7: 10/27/20 10:09 10/28/20 08:06 Labs: Abnormal Lab Results - Last 24 Hours (Table) 10/27/20 10/27/20 10/28/20 Range/Units 17:30 20:26 06:59 Carbon Dioxide (22-30) mmol/L BUN (9-20) mg/dL Creatinine (0.66-1.25) mg/dL Glucose (74-99) mg/dL POC Glucose (mg/dL) 147 H 182 H 133 H (75-99) mg/dL 10/28/20 10/28/20 Range/Units 08:06 11:55 Carbon Dioxide 31 H (22-30) mmol/L BUN 36 H (9-20) mg/dL Creatinine 1.88 H (0.66-1.25) mg/dL Glucose 111 H (74-99) mg/dL POC Glucose (mg/dL) 117 H (75-99) mg/dL Assessment and Plan Plan: Congestive heart failure possibly chronic diastolic dysfunction with acute exacerbation patient was started on 60 mg IV twice a day of Lasix with kidney function monitored and electrolyte monitoring. 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 -Gastroesophageal reflux disease -Hypertension -Hyperlipidemia -Sleep apnea uses CPAP machine -Benign prostatic hypertrophy -Hypothyroidism -Depression For above-mentioned chronic medical problems patient will be resumed on approp riate home medications
[2020-10-28 16:55] LABS: Glucose,Whole Blood 51 mg/dL (75-99)
[2020-10-28 16:55] LABS: Glucose,Whole Blood 51 mg/dL (75-99)
[2020-10-28 17:14] LABS: Glucose,Whole Blood 68 mg/dL (75-99)
[2020-10-28 17:31] LABS: Glucose,Whole Blood 99 mg/dL (75-99)
[2020-10-28 20:13] LABS: Glucose,Whole Blood 187 mg/dL (75-99)
[2020-10-28] MEDS: METOPROLOL TARTRATE 25 MG TAB PO SCH (21:54)
[2020-10-28] MEDS: risperiDONE 0.5 MG TAB PO SCH (21:55)
[2020-10-28] MEDS: TAMSULOSIN 0.4 MG CAP.ER.24H PO SCH (21:55)
[2020-10-28] MEDS: ASPIRIN 81 MG PO SCH (21:55)
[2020-10-29] MEDS: PANTOPRAZOLE 40 MG TABLET PO SCH (07:06)
[2020-10-29 07:11] LABS: Glucose,Whole Blood 106 mg/dL (75-99)
[2020-10-29] MEDS: INSULIN DETEMIR (LEVEMIR) 100 UNIT/ML SYR SQ SCH (07:11)
[2020-10-29] MEDS: INSULIN ASPART (NovoLOG) 100 UNIT/ML VIAL SQ SCH ×3 (07:11→17:21)
[2020-10-29] MEDS: POTASSIUM CHLORIDE ER 10 MEQ TAB.ER.PRT PO SCH (08:35)
[2020-10-29] MEDS: ACETAMINOPHEN TAB 325 MG TAB PO SCH ×3 (08:35→17:24)
[2020-10-29] MEDS: buPROPion XL 150 MG TAB.ER.24H PO SCH (08:35)
[2020-10-29] MEDS: FINASTERIDE 5 MG TAB PO SCH (08:35)
[2020-10-29] MEDS: APIXABAN 2.5 MG TABLET PO SCH (08:36)
[2020-10-29] MEDS: FUROSEMIDE 10 MG/ML 10 ML VIAL IV SCH (08:36)
[2020-10-29] MEDS: DULoxetine HCL 60 MG CAPSULE.DR PO SCH (08:36)
[2020-10-29] MEDS: METOPROLOL TARTRATE 25 MG TAB PO SCH (08:36)
[2020-10-29] MEDS: hydrALAZINE HCL 50 MG TAB PO SCH ×2 (08:36→17:23)
[2020-10-29] MEDS: IPRATROPIUM-ALBUTEROL 3 ML NEB INHALATION SCH ×3 (08:43→16:39)
[2020-10-29 11:54] LABS: Calcium 8.3 mg/dL (8.4-10.2); Potassium 3.8 mmol/L (3.5-5.1)
--- NOTE | 2020-10-29 12:08 | P.PN ---
Subjective HISTORY OF PRESENTING ILLNESS This is a pleasant 85-year-old male past medical history significant for artery disease status post PCI to the circumflex artery with a bare metal stent in 1999, ischemic cardiomyopathy, CVA, diabetes mellitus, hypertension, chronic diastolic heart failure and former nicotine dependence. He follows in the office with Dr Wells. He is seen and examined sitting up in bed in no acute distress. He denies worsening shortness of breath and lower extremity edema has improved. Blood pressure 175/74 heart rate 60 afebrile and maintaining oxygen saturation on room air. Laboratory data reviewed, sodium 140, potassium 3.8, creatinine 2.16 PHYSICAL EXAMINATION CONSTITUTIONAL: No apparent distress. HEENT: Head is normocephalic. Pupils are equal, round. Sclerae anicteric. Mucous membranes of the mouth are moist. No JVD. No carotid bruit. CHEST EXAMINATION: Lungs are clear to auscultation. No chest wall tenderness is noted on palpation or with deep breathing. HEART EXAMINATION: Regular rate and rhythm. S1, S2 heard. No murmurs, gallops or rub. EXTREMITIES: 2+ peripheral pulses, trace lower extremity edema noted improved from yesterday and no calf tenderness. ASSESSMENT Paroxysmal atrial fibrillation with rapid ventricular rate, converted to sinus mechanism. Acute on chronic diastolic heart failure Coronary artery disease status post PCI CVA Diabetes mellitus Hypertension Obesity, BMI 35 PLAN Transition to oral diuretics, 40 mg BID. He has converted to sinus mechanism with heart rates in the 60's. Stable for discharge back to [facility]. Follow up in the office with Dr. Wells in 1-2 weeks. Nurse Practitioner note has been reviewed, I agree with a documented findings and plan of care. Patient was seen and examined. Objective - Vital Signs Vital signs: Vital Signs Temp 98.4 F 10/29/20 08:00 Pulse 68 10/29/20 11:55 Resp 20 10/29/20 08:00 BP 175/74 10/29/20 08:00 Pulse Ox 99 10/29/20 08:43 Intake & Output 10/28/20 10/29/20 10/29/20 18:59 06:59 18:59 Intake Total 100 237 125 Output Total 679 603 9610 Balance -171 -363 -875 Weight 110 kg 109 kg Intake: Oral 100 237 125 Output: Urine 058 [id number] [id number] Other: Voiding Method Indwelling Catheter Indwelling Catheter Indwelling Catheter # Bowel Movements 1 - Labs CBC & Chem 7: 10/27/20 10:09 10/29/20 10:58 Labs: Abnormal Lab Results - Last 24 Hours (Table) 10/28/20 10/28/20 10/28/20 Range/Units 16:53 16:54 17:13 Carbon Dioxide (22-30) mmol/L BUN (9-20) mg/dL Creatinine (0.66-1.25) mg/dL Glucose (74-99) mg/dL POC Glucose (mg/dL) 51 L 51 L 68 L (75-99) mg/dL Calcium (8.4-10.2) mg/dL 10/28/20 10/29/20 10/29/20 Range/Units 20:12 07:09 10:58 Carbon Dioxide 33 H (22-30) mmol/L BUN 41 H (9-20) mg/dL Creatinine 2.16 H (0.66-1.25) mg/dL Glucose 108 H (74-99) mg/dL POC Glucose (mg/dL) 187 H 106 H (75-99) mg/dL Calcium 8.3 L (8.4-10.2) mg/dL
[2020-10-29 12:20] LABS: Glucose,Whole Blood 93 mg/dL (75-99)
[2020-10-29] MEDS: SODIUM CHLORIDE 0.9% 1,000 ML IV SCH (13:36)
--- NOTE | 2020-10-29 15:56 | P.DS ---
Providers Date of admission: 10/27/20 14:42 Expected date of discharge: 10/29/20 Attending physician: Melissa Elam Consults: 10/27/20 13:25 Consult Physician Routine Consulting Provider: Toñito Wells Consult Reason/Comments: Congestive heart failure Do you want consulting provider notified?: Yes Primary care physician: [facility] Course: 85-year-old pleasant male was sent in from our cardiology office. As patient was in atrial fibrillation with rapid ventricular rate patient was also having shortness of breath and orthopnea. Patient does have a bilateral pedal edema. Patient doesn't have any history of systolic dysfunction the past does have history of atrial fibrillation is on Eliquis. Patient does have history of COPD uses his 2 L of oxygen at home. Patient is saturating well at this time on 3 L may not require 3 L. Patient denied any fever chills patient and nausea vomiting chest x-ray did show pulmonary edema and small basilar pleural effusions. Patient has mildly elevated troponin denied any chest pain, EKG showing A. fib with rapid ventricular rate. 10/28/2020 Patient is significant improvement in heart failure status will continue with IV Lasix. Patient was evaluated by cardiology. Patient's Cardizem was discontinued. Patient has normal ejection fraction. Patient was started on Lopressor 75 twice a day possibility of discharge tomorrow. Constitutional: Denied any fatigue denied any fever. Cardio vascular: denied any chest pain, palpitations Gastrointestinal denied any nausea vomiting Pulmonary: Significant improvement in shortness of breath Neurologic denied any new focal deficits Patient is seen and evaluated by cardiology Paroxysmal atrial fibrillation with rapid ventricular rate, converted to sinus mechanism. Acute on chronic diastolic heart failure Coronary artery disease status post PCI CVA Diabetes mellitus Hypertension Obesity, BMI 35 PLAN Transition to oral diuretics, 40 mg BID. He has converted to sinus mechanism with heart rates in the 60's. Stable for discharge back to [facility]. Follow up in the office with Dr. Wells in 1-2 weeks. We will discharge patient to skilled rehab Patient Condition at Discharge: Fair Plan - Discharge Summary New Discharge Prescriptions: New Furosemide [Lasix] 40 mg PO BID@0900,1600 tab Metoprolol Tartrate [Lopressor] 75 mg PO BID tab Continue Levothyroxine Sodium [Synthroid] 88 mcg PO DAILY Tamsulosin HCl [Flomax] 0.4 mg PO HS Melatonin 6 mg PO HS Finasteride [Proscar] 5 mg PO DAILY Apixaban [Eliquis] 2.5 mg PO BID Calcitriol [Rocaltrol] 0.25 mcg PO PHAN risperiDONE [RisperDAL] 0.5 mg PO HS Lansoprazole [Prevacid] 15 mg PO BID Magnesium Hydroxide [Milk of Magnesia] 2,400 mg PO DAILY PRN PRN Reason: Constipation buPROPion HCL [Wellbutrin XL] 150 mg PO DAILY Aspirin 81 mg PO HS Insulin Detemir (Levemir) [Levemir] 30 unit SQ DAILY syr Ipratropium-Albuterol Nebulize [Duoneb 0.5 mg-3 mg/3 ml Soln] 3 ml INHALATION RT-QID ml Acetaminophen Tab [Tylenol] 650 mg PO QID Albuterol Nebulized [Ventolin Nebulized] 2.5 mg INHALATION RT-QID PRN PRN Reason: Shortness Of Breath Bismuth Subsalicylate [Pepto-Bismol] 262 mg PO Q4H PRN PRN Reason: Diarrhea cycloSPORINE 0.05% OPHTH SOLN [Restasis] 1 drop BOTH EYES BID PRN PRN Reason: Dry Eye(S) DULoxetine HCL [Cymbalta] 60 mg PO DAILY Fluticasone Nasal [place] [Flonase Nasal [place]] 2 spr EA NOSTRIL TID@0700,1300,1900 hydrALAZINE HCL [Apresoline] 50 mg PO TID@0600,1300,1900 Mag Hydrox/Aluminum Hyd/Simeth [Mylanta Maximum Strength Liq] 30 ml PO Q6H PRN PRN Reason: Gi Upset polyethylene glycoL 3350 [Miralax] 17 gm PO DAILY PRN PRN Reason: Constipation Potassium Chloride ER [K-Dur 10] 10 meq PO DAILY@0700 Sennosides [Senna] 17.2 mg PO DAILY INSULIN ASPART (NovoLOG) [NovoLOG (formulary)] 5 unit SQ AC-TID LORazepam [Ativan] 0.5 mg PO Q4H PRN PRN Reason: Anxiety Discontinued Metoprolol Tartrate [Lopressor] 25 mg PO BID Furosemide [Lasix] 20 mg PO BID@0700,1600 Discharge Medication List Levothyroxine Sodium [Synthroid] 88 mcg PO DAILY 11/11/14 [History] Tamsulosin HCl [Flomax] 0.4 mg PO HS 11/07/18 [History] Melatonin 6 mg PO HS 11/26/18 [History] Apixaban [Eliquis] 2.5 mg PO BID 07/17/20 [History] Calcitriol [Rocaltrol] 0.25 mcg PO PHAN 07/17/20 [History] Finasteride [Proscar] 5 mg PO DAILY 07/17/20 [History] Aspirin 81 mg PO HS 09/27/20 [History] Insulin Detemir (Levemir) [Levemir] 30 unit SQ DAILY syr 09/27/20 [Rx] Ipratropium-Albuterol Nebulize [Duoneb 0.5 mg-3 mg/3 ml Soln] 3 ml INHALATION RT-QID ml 09/27/20 [Rx] Lansoprazole [Prevacid] 15 mg PO BID 09/27/20 [History] Magnesium Hydroxide [Milk of Magnesia] 2,400 mg PO DAILY PRN 09/27/20 [History] buPROPion HCL [Wellbutrin XL] 150 mg PO DAILY 09/27/20 [History] risperiDONE [RisperDAL] 0.5 mg PO HS 09/27/20 [History] Acetaminophen Tab [Tylenol] 650 mg PO QID 10/27/20 [History] Albuterol Nebulized [Ventolin Nebulized] 2.5 mg INHALATION RT-QID PRN 10/27/20 [History] Bismuth Subsalicylate [Pepto-Bismol] 262 mg PO Q4H PRN 10/27/20 [History] DULoxetine HCL [Cymbalta] 60 mg PO DAILY 10/27/20 [History] Fluticasone Nasal [place] [Flonase Nasal [place]] 2 spr EA NOSTRIL TID@0 700,1300,1900 10/27/20 [History] INSULIN ASPART (NovoLOG) [NovoLOG (formulary)] 5 unit SQ AC-TID 10/27/20 [History] LORazepam [Ativan] 0.5 mg PO Q4H PRN 10/27/20 [History] Mag Hydrox/Aluminum Hyd/Simeth [Mylanta Maximum Strength Liq] 30 ml PO Q6H PRN 10/27/20 [History] Potassium Chloride ER [K-Dur 10] 10 meq PO DAILY@0700 10/27/20 [History] Sennosides [Senna] 17.2 mg PO DAILY 10/27/20 [History] cycloSPORINE 0.05% OPHTH SOLN [Restasis] 1 drop BOTH EYES BID PRN 10/27/20 [History] hydrALAZINE HCL [Apresoline] 50 mg PO TID@0600,1300,1900 10/27/20 [History] polyethylene glycoL 3350 [Miralax] 17 gm PO DAILY PRN 10/27/20 [History] Furosemide [Lasix] 40 mg PO BID@0900,1600 tab 10/29/20 [Rx] Metoprolol Tartrate [Lopressor] 75 mg PO BID tab 10/29/20 [Rx] Follow up Appointment(s)/Referral(s): Phoenix Parker MD [Primary Care Provider] - 1-2 days Toñito Wells MD [STAFF PHYSICIAN] - 2 Weeks Discharge Disposition: HOME SELF-CARE
[2020-10-29] MEDS ORDERED: FUROSEMIDE 40 MG TAB PO SCH (16:00)
[2020-10-29 16:11] VITALS: BP 175/81; TEMP 98.5
[2020-10-29 16:41] VITALS: PULSE 70
[2020-10-29 16:54] VITALS: RESP 16
[2020-10-29 17:17] LABS: Glucose,Whole Blood 82 mg/dL (75-99)
== END 2020-10-29 18:47 | DRG 291 ==
LOC: EC 09:42 → 3SCARD 14:42
PROVIDERS: ADMIT Internal Medicine; ATTEND Internal Medicine
DX: I13.0 Hypertensive heart and chronic kidney disease with heart failure and stage 1 through stage 4 chronic kidney disease, or unspecified chronic kidney disease (principal); I50.33 Acute on chronic diastolic (congestive) heart failure; J96.12 Chronic respiratory failure with hypercapnia; N18.4 Chronic kidney disease, stage 4 (severe); E11.22 Type 2 diabetes mellitus with diabetic chronic kidney disease; E66.9 Obesity, unspecified; E78.5 Hyperlipidemia, unspecified; E89.0 Postprocedural hypothyroidism; F20.9 Schizophrenia, unspecified; F32.9 Major depressive disorder, single episode, unspecified; F41.9 Anxiety disorder, unspecified; G47.30 Sleep apnea, unspecified; Z99.89 Dependence on other enabling machines and devices; I25.10 Atherosclerotic heart disease of native coronary artery without angina pectoris; I25.2 Old myocardial infarction; I25.5 Ischemic cardiomyopathy; I48.0 Paroxysmal atrial fibrillation; Z86.73 Personal history of transient ischemic attack (TIA), and cerebral infarction without residual deficits; J44.9 Chronic obstructive pulmonary disease, unspecified; K21.9 Gastro-esophageal reflux disease without esophagitis; N40.0 Benign prostatic hyperplasia without lower urinary tract symptoms; Z68.35 Body mass index [BMI] 35.0-35.9, adult; F40.240 Claustrophobia; Z98.42 Cataract extraction status, left eye; Z98.41 Cataract extraction status, right eye; H35.30 Unspecified macular degeneration; R79.89 Other specified abnormal findings of blood chemistry; Z87.01 Personal history of pneumonia (recurrent); Z79.01 Long term (current) use of anticoagulants; Z79.4 Long term (current) use of insulin; Z79.82 Long term (current) use of aspirin; Z79.890 Hormone replacement therapy; Z79.899 Other long term (current) drug therapy; Z80.0 Family history of malignant neoplasm of digestive organs; Z80.1 Family history of malignant neoplasm of trachea, bronchus and lung; Z80.8 Family history of malignant neoplasm of other organs or systems; Z87.891 Personal history of nicotine dependence; Z96.652 Presence of left artificial knee joint; Z98.61 Coronary angioplasty status
CPT/HCPCS: 36415; 51702; 71046; 80048; 80053; 82550; 83735; 83880; 84484; 85025; 85610; 85730; 93005; 93306; 94640; 94760; 96365; 96366; 96375; 96376; 99291

== ENCOUNTER 2020-11-03 08:56 | Inpatient (IN) | payer MEDICARE, BC ==
[2020-11-03] MEDS ORDERED: SODIUM CHLORIDE 0.9% 1,000 ML IV STA (09:16)
--- NOTE | 2020-11-03 09:21 | ED ---
General Adult HPI - General Chief complaint: Recheck/Abnormal Lab/Rx Stated complaint: anxiety Time Seen by Provider: 11/03/20 09:03 Source: patient, EMS, RN notes reviewed, old records reviewed Mode of arrival: EMS Limitations: no limitations - History of Present Illness Initial comments: 85-year-old male presents from [facility] with complaints of episodes of hypoxia and unresponsiveness. Reportedly Patient is on 2-3 L of oxygen and was found to be unresponsive with oxygen saturation 75-81%. He is having significant difficulty breathing and anxiety as well according to EMS. When EMS arrived they reported that he is oxygen saturation is 94% and on 4 L of oxygen. He denies any chest pain or cough at this time. He states he does not have the exact answers to why he is transferred. Patient reports that he has had recent admission to hospital for CHF with Kayla cheney with [facility]. Patient started a cardiology at that time. Again he has no chest pain or active radius to why he is here currently. - Related Data Home Medications Medication Instructions Recorded Confirmed Levothyroxine Sodium [Synthroid] 88 mcg PO DAILY@0700 09/29/14 11/03/20 Tamsulosin HCl [Flomax] 0.4 mg PO HS@199911/07/18 11/03/20 Melatonin 6 mg PO HS@199911/26/18 11/03/20 Apixaban [Eliquis] 2.5 mg PO BID@0700,1600 07/17/20 11/03/20 Calcitriol [Rocaltrol] 0.25 mcg PO PHAN@0700 07/17/20 11/03/20 Finasteride [Proscar] 5 mg PO DAILY@0700 07/17/20 11/03/20 Aspirin 81 mg PO HS@199909/27/20 11/03/20 Lansoprazole [Prevacid] 15 mg PO BID@0700,1600 09/27/20 11/03/20 Magnesium Hydroxide [Milk of 2,400 mg PO DAILY PRN 09/27/20 11/03/20 Magnesia] buPROPion HCL [Wellbutrin XL] 150 mg PO DAILY@0700 09/27/20 11/03/20 risperiDONE [RisperDAL] 0.5 mg PO HS@199909/27/20 11/03/20 Acetaminophen Tab [Tylenol] 650 mg PO QID 10/27/20 11/03/20 Albuterol Nebulized [Ventolin 2.5 mg INHALATION RT-QID PRN 10/27/20 11/03/20 Nebulized] Bismuth Subsalicylate 262 mg PO Q4H PRN 10/27/20 11/03/20 [Pepto-Bismol] DULoxetine HCL [Cymbalta] 60 mg PO DAILY@0700 10/27/20 11/03/20 Fluticasone Nasal [place] [Flonase 2 spr EA NOSTRIL TID@0700,1300,1900 10/27/20 11/03/20 Nasal [place]] LORazepam [Ativan] 0.5 mg PO Q4H PRN 10/27/20 11/03/20 Mag Hydrox/Aluminum Hyd/Simeth 30 ml PO Q6H PRN 10/27/20 11/03/20 [Mylanta Maximum Strength Liq] Potassium Chloride ER [K-Dur 10] 10 meq PO DAILY@0700 10/27/20 11/03/20 Sennosides [Senna] 17.2 mg PO HS@199910/27/20 11/03/20 cycloSPORINE 0.05% OPHTH SOLN 1 drop BOTH EYES BID PRN 10/27/20 11/03/20 [Restasis] hydrALAZINE HCL [Apresoline] 50 mg PO TID@0700,1300,1900 10/27/20 11/03/20 Furosemide [Lasix] 40 mg PO BID@0700,1600 11/03/20 11/03/20 Insulin Aspart [NovoLOG Flexpen] 5 units SQ AC-TID 11/03/20 11/03/20 Insulin Aspart [NovoLOG Flexpen] See Protocol SQ ACHS 11/03/20 11/03/20 Insulin Detemir (Levemir) [Levemir] 30 unit SQ HS@199911/03/20 11/03/20 Metoprolol Tartrate [Lopressor] 75 mg PO BID@0700,1600 11/03/20 11/03/20 Previous Rx's Medication Instructions Recorded Ipratropium-Albuterol Nebulize 3 ml INHALATION RT-QID ml 09/27/20 [Duoneb 0.5 mg-3 mg/3 ml Soln] Allergies Allergy/AdvReac Type Severity Reaction Status Date / Time shellfish derived [Shellfish] AdvReac Rash/Hives Verified 11/03/20 09:22 Review of Systems ROS Statement: Those systems with pertinent positive or pertinent negative responses have been documented in the HPI. ROS Other: All systems not noted in ROS Statement are negative. Past Medical History Past Medical History: Coronary Artery Disease (CAD), Cancer, Heart Failure, COPD, Diabetes Mellitus, GERD/Reflux, Hyperlipidemia, Hypertension, Myocardial Infarction (UT), Pneumonia, Prostate Disorder, Sleep Apnea/CPAP/BIPAP, Thyroid Disorder Additional Past Medical History / Comment(s): no CPAP used, hiatal hernia, hx thyroid cancer, macular degeneration danielle eyes, pt on 2l 02 Last Myocardial Infarction Date:: 1999 History of Any Multi-Drug Resistant Organisms: None Reported Past Surgical History: Heart Catheterization With Stent, Joint Replacement Additional Past Surgical History / Comment(s): left knee replacement, danielle cataracts, thyroidectomy Past Anesthesia/Blood Transfusion Reactions: No Reported Reaction Additional Past Anesthesia/Blood Transfusion Reaction / Comment(s): clausterphobia -"uses open mri" Date of Last Stent Placement:: 1999 Past Psychological History: Anxiety, Depression, Schizophrenia Smoking Status: Former smoker Past Alcohol Use History: None Reported Past Drug Use History: None Reported - Past Family History Father Family Medical History: Cancer Additional Family Medical History / Comment(s): Father had lung cancer and colorectal cancer. He smoked as a younger man. Mother Family Medical History: Cancer Additional Family Medical History / Comment(s): Mother had skin cancer General Exam - General Exam Comments Initial Comments: 85-year-old male. Alert and oriented. Sensation saturation on 4 L is 94%. Limitations: no limitations General appearance: alert, in no apparent distress Head exam: Present: atraumatic, normocephalic, normal inspection Eye exam: Present: normal appearance, PERRL, EOMI. Absent: scleral icterus, conjunctival injection, periorbital swelling ENT exam: Present: normal exam, normal oropharynx, mucous membranes moist Neck exam: Present: normal inspection. Absent: tenderness, meningismus, lym phadenopathy Respiratory exam: Present: decreased breath sounds. Absent: normal lung sounds bilaterally Cardiovascular Exam: Present: regular rate, normal rhythm, normal heart sounds. Absent: systolic murmur, diastolic murmur, rubs, gallop, clicks GI/Abdominal exam: Present: soft, normal bowel sounds. Absent: distended, tenderness, guarding, rebound, rigid Extremities exam: Present: normal inspection, full ROM, normal capillary refill, other (1+ pitting edema bilaterally). Absent: tenderness, pedal edema, joint swelling, calf tenderness Back exam: Present: normal inspection Neurological exam: Present: alert, oriented X3, CN II-XII intact Psychiatric exam: Present: normal affect, normal mood Course Vital Signs 11/03/20 11/03/20 08:58 11:00 Temperature 98.0 F Pulse Rate 66 64 Respiratory 18 18 Rate Blood Pressure 189/84 157/66 O2 Sat by Pulse 97 98 Oximetry Medical Decision Making - Medical Decision Making 85-year-old male presents from [facility] care facility for complaints of shortnes s of breath and some episodes of hypoxia. He arrives to emergency department he has diminished lung sounds and is placed on 4 L of oxygen satting at 94%. Patient does have 1+ pitting edema in lower extremities. Lab work was obtained. He has significantly elevated BNP of 33,000. Chest x-ray shows evidence of pulmonary vascular congestion versus a developing infiltrate. This have an increased white blood cell count 14,000. Patient was given Rocephin as well as placed on Nitropaste and Lasix for concern for acute CHF. He'll does have an elevated troponin level but denies chest pain. This is likely reflective of acute CHF. Patient will be made to this time with consult to cardiology in regards to CHF exacerbation. Dr. Briscoe discussed the case with Dr. Elam - Lab Data Result diagrams: 11/03/20 09:36 11/03/20 09:36 Lab Results 11/03/20 11/03/20 11/03/20 Range/Units 09:36 09:36 09:36 WBC 14.4 H (3.8-10.6) k/uL RBC 3.56 L (4.30-5.90) m/uL Hgb 11.6 L (13.0-17.5) gm/dL Hct 36.8 L (39.0-53.0) % MCV 103.3 H (80.0-100.0) fL MCH 32.6 (25.0-35.0) pg MCHC 31.5 (31.0-37.0) g/dL RDW 14.5 (11.5-15.5) % Plt Count 271 (150-450) k/uL MPV 6.9 Neutrophils % 90 % Lymphocytes % 4 % Monocytes % 4 % Eosinophils % 1 % Basophils % 0 % Neutrophils # 13.0 H (1.3-7.7) k/uL Lymphocytes # 0.6 L (1.0-4.8) k/uL Monocytes # 0.6 (0-1.0) k/uL Eosinophils # 0.1 (0-0.7) k/uL Basophils # 0.0 (0-0.2) k/uL Hypochromasia Slight Macrocytosis Slight PT 10.6 (9.0-12.0) sec INR 1.0 (<1.2) APTT 26.9 (22.0-30.0) sec Sodium 141 (137-145) mmol/L Potassium 4.0 (3.5-5.1) mmol/L Chloride 101 (98-107) mmol/L Carbon Dioxide 39 H (22-30) mmol/L Anion Gap 1 mmol/L BUN 33 H (9-20) mg/dL Creatinine 1.81 H (0.66-1.25) mg/dL Est GFR (CKD-EPI)AfAm 39 (>60 ml/min/1.73 sqM) Est GFR (CKD-EPI)NonAf 34 (>60 ml/min/1.73 sqM) Glucose 54 L (74-99) mg/dL Plasma Lactic Acid Qasim (0.7-2.0) mmol/L Calcium 8.9 (8.4-10.2) mg/dL Magnesium 2.3 (1.6-2.3) mg/dL Total Bilirubin 0.6 (0.2-1.3) mg/dL AST 23 (17-59) U/L ALT 18 (4-49) U/L Alkaline Phosphatase 80 (38-126) U/L Troponin I (0.000-0.034) ng/mL NT-Pro-B Natriuret Pep pg/mL Total Protein 5.9 L (6.3-8.2) g/dL Albumin 3.2 L (3.5-5.0) g/dL 11/03/20 11/03/20 11/03/20 Range/Units 09:36 09:36 09:36 WBC (3.8-10.6) k/uL RBC (4.30-5.90) m/uL Hgb (13.0-17.5) gm/dL Hct (39.0-53.0) % MCV (80.0-100.0) fL MCH (25.0-35.0) pg MCHC (31.0-37.0) g/dL RDW (11.5-15.5) % Plt Count (150-450) k/uL MPV Neutrophils % % Lymphocytes % % Monocytes % % Eosinophils % % Basophils % % Neutrophils # (1.3-7.7) k/uL Lymphocytes # (1.0-4.8) k/uL Monocytes # (0-1.0) k/uL Eosinophils # (0-0.7) k/uL Basophils # (0-0.2) k/uL Hypochromasia Macrocytosis PT (9.0-12.0) sec INR (<1.2) APTT (22.0-30.0) sec Sodium (137-145) mmol/L Potassium (3.5-5.1) mmol/L Chloride (98-107) mmol/L Carbon Dioxide (22-30) mmol/L Anion Gap mmol/L BUN (9-20) mg/dL Creatinine (0.66-1.25) mg/dL Est GFR (CKD-EPI)AfAm (>60 ml/min/1.73 sqM) Est GFR (CKD-EPI)NonAf (>60 ml/min/1.73 sqM) Glucose (74-99) mg/dL Plasma Lactic Acid Qasim 1.0 (0.7-2.0) mmol/L Calcium (8.4-10.2) mg/dL Magnesium (1.6-2.3) mg/dL Total Bilirubin (0.2-1.3) mg/dL AST (17-59) U/L ALT (4-49) U/L Alkaline Phosphatase (38-126) U/L Troponin I 0.058 H* (0.000-0.034) ng/mL NT-Pro-B Natriuret Pep 98187 pg/mL Total Protein (6.3-8.2) g/dL Albumin (3.5-5.0) g/dL 11/03/20 09:20 EKG performed at 908 shows normal sinus rhythm nonspecific T-wave abnormality. Abnormal EKG. Ventricular rate of 67 bpm. Intervals 162 ms. She yazdanism is 94 ms. QT QTc is 46/429 ms. No evidence of ST elevation. - Radiology Data Radiology results: report reviewed Progressive pulmonary venous congestion with bilateral effusions basilar atelectasis or infiltrates. Cardiomegaly also noted. Findings suspicious for congestive heart failure although underlying infiltrates or other etiology difficult to exclude. Correlate clinically and progress or he is advised. Disposition Clinical Impression: CHF (congestive heart failure), Renal insufficiency syndrome, Elevated troponin I level, Pneumonia Disposition: ADMITTED IP TO THIS HOSP Condition: Stable Is patient prescribed a controlled substance at d/c from ED?: No Referrals: Phoenix Parker MD [Primary Care Provider] - 1-2 days Time of Disposition: 11:49
[2020-11-03 09:56] LABS: Basophils % (A) 0 %; Eosinophils # (A) 0.1 k/uL (0-0.7); Eosinophils % (A) 1 %; HCT 36.8 % (39.0-53.0); HGB 11.6 gm/dL (13.0-17.5); Hypochromasia Slight; Lymphocytes # (A) 0.6 k/uL (1.0-4.8); Lymphocytes % (A) 4 %; MCH 32.6 pg (25.0-35.0); MCHC 31.5 g/dL (31.0-37.0); MCV 103.3 fL (80.0-100.0); Macrocytosis Slight; Mean Platelet Volume 6.9; Monocytes # (A) 0.6 k/uL (0-1.0); Monocytes % (A) 4 %; Neutrophils % (A) 90 %; Platelet Count 271 k/uL (150-450); RBC 3.56 m/uL (4.30-5.90); RDW 14.5 % (11.5-15.5); WBC 14.4 k/uL (3.8-10.6)
--- NOTE | 2020-11-03 10:01 | XR ---
EXAMINATION TYPE: XR chest 2V DATE OF EXAM: 11/03/2020 COMPARISON: 10/27/2020 HISTORY: Shortness of breath TECHNIQUE: Frontal and lateral views of the chest are obtained. FINDINGS: Scattered senescent parenchymal changes noted. Hyperinflation compatible with COPD. There is progressive pulmonary venous congestion with bilateral effusions and basilar atelectasis and /or infiltrates. Cardiomegaly also noted. Findings are suspicious for congestive failure although und erlying infiltrates of other etiology difficult to exclude. Correlate clinically and progress studies are advised. Mediastinal structures are stable and grossly unremarkable. No evidence for hilar prominence. Degenerative changes dorsal spine. IMPRESSION: 1. There is progressive pulmonary venous congestion with bilateral effusions and basilar atelectasis and/or infiltrates. Cardiomegaly also noted. Findings are suspicious for congestive failure although underlying infiltrates of other etiology difficult to exclude. Correlate clinically and progress stud ies are advised.
[2020-11-03 10:08] LABS: Partial Thromboplastin Time 26.9 sec (22.0-30.0); Prothrombin Time 10.6 sec (9.0-12.0)
[2020-11-03] MEDS ORDERED: FUROSEMIDE 10 MG/ML 4 ML VIAL IV STA ×2 (10:14→15:16)
[2020-11-03 10:27] LABS: Albumin 3.2 g/dL (3.5-5.0); Calcium 8.9 mg/dL (8.4-10.2); Magnesium 2.3 mg/dL (1.6-2.3); Total Bilirubin 0.6 mg/dL (0.2-1.3); Total Protein 5.9 g/dL (6.3-8.2)
[2020-11-03] MEDS ORDERED: cefTRIAXone IN SWFI 1,000 MG/10 ML SYRINGE IVP STA (10:38)
[2020-11-03] MEDS ORDERED: NITROGLYCERIN OINT 1 INCH/GM PACKET TOPICAL STA (11:01)
[2020-11-03] MEDS ORDERED: ALBUTEROL NEBULIZED 2.5 MG/3 ML INHALATION PRN (11:52)
[2020-11-03] MEDS ORDERED: MAG HYDROX/AL HYDROX/SIMETH 30 ML CUP PO PRN (11:52)
[2020-11-03] MEDS ORDERED: BISMUTH SUBSALICYLATE 4,192 MG/240 ML BOTTLE PO PRN (11:52)
[2020-11-03] MEDS ORDERED: cycloSPORINE 0.05% OPHTH 0.4 ML DROPERETTE BOTH EYES PRN (11:52)
[2020-11-03] MEDS ORDERED: LORazepam 0.5 MG TAB PO PRN (11:52)
[2020-11-03 11:53] LABS: Appearance,Urine Cloudy (Clear); Bacteria,Urine Many /hpf; Bilirubin,Urine Negative (Negative); Blood,Urine Small (Negative); Color,Urine Light Yellow; Glucose,Urine (UA) Negative (Negative); Ketones,Urine Negative (Negative); Leukocyte Esterase,Urine Large (Negative); Nitrite,Urine Negative (Negative); PH, Urine 6.5 (5.0-8.0); Protein,Urine 2+ (Negative); RBC,Urine 45 /hpf (0-5); Urobilinogen,Urine <2.0 mg/dL (<2.0); WBC,Urine >182 /hpf (0-5)
[2020-11-03] MEDS: FUROSEMIDE 10 MG/ML 4 ML VIAL IV SCH ×2 (12:02→20:30)
[2020-11-03] MEDS: IPRATROPIUM-ALBUTEROL 3 ML NEB INHALATION SCH ×3 (12:59→20:55)
[2020-11-03] MEDS: FLUTICASONE 50MCG/SPRAY NASAL 16GM EA NOSTRIL SCH ×2 (14:27→20:31)
[2020-11-03] MEDS: NITROGLYCERIN OINT 1 INCH/GM PACKET TOPICAL SCH ×3 (15:00→20:30)
[2020-11-03] MEDS: ACETAMINOPHEN TAB 325 MG TAB PO SCH ×3 (15:00→20:30)
[2020-11-03] MEDS: hydrALAZINE HCL 50 MG TAB PO SCH ×2 (15:01→20:29)
[2020-11-03 15:09] LABS: Glucose,Whole Blood 84 mg/dL (75-99)
[2020-11-03] MEDS ORDERED: IPRATROPIUM-ALBUTEROL 3 ML NEB INHALATION PRN (15:16)
--- NOTE | 2020-11-03 15:27 | P.HPIM ---
History of Present Illness Patient is an 85-year-old male came in with comments of shortness of breath orthopnea paroxysmal nocturnal dyspnea. Patient is found to have low saturations. Patient does have history of congestive heart failure patient is a skilled nursing resident does have history of atrial fibrillation. Patient usually uses 2 L of oxygen presently requiring 3 and half liters was comparing of cough with greenish brown production chest x-ray is Consistent with congestive heart failure patient has highly elevated BNP of around 33,000. Patient does have chronic kidney disease with baseline creatinine around 1.8-1.9 but only taking 40 mg twice a day of Lasix patient has diastolic dysfunction and normal systolic function the past. Patient was on 60 IV twice a day of Lasix was discharged on 41. If Lasix. Patient has abnormal urine but denied any UTI symptoms. Review of Systems REVIEW OF SYSTEMS: CONSTITUTIONAL: No fever, no malaise, no fatigue. HEENT: No recent visual problems or hearing problems. Denied any sore throat. CARDIOVASCULAR: No chest pain, no palpitations, no syncope. PULMONARY: no hemoptysis. GASTROINTESTINAL: No diarrhea, no nausea, no vomiting, no abdominal pain. NEUROLOGICAL: No headaches, no weakness, no numbness. HEMATOLOGICAL: Denies any bleeding or petechiae. GENITOURINARY: Denies any burning micturition, frequency, or urgency. MUSCULOSKELETAL/RHEUMATOLOGICAL: Denies any joint pain, swelling, or any muscle pain. ENDOCRINE: Denies any polyuria or polydipsia. The rest of the 14-point review of systems is negative. Past Medical History Past Medical History: Coronary Artery Disease (CAD), Cancer, Heart Failure, COPD, Diabetes Mellitus, GERD/Reflux, Hyperlipidemia, Hypertension, Myocardial Infarction (GA), Pneumonia, Prostate Disorder, Sleep Apnea/CPAP/BIPAP, Thyroid Disorder Additional Past Medical History / Comment(s): no CPAP used, hiatal hernia, hx thyroid cancer, macular degeneration danielle eyes, pt on 2l 02 Last Myocardial Infarction Date:: 1999 History of Any Multi-Drug Resistant Organisms: None Reported Past Surgical History: Heart Catheterization With Stent, Joint Replacement Additional Past Surgical History / Comment(s): left knee replacement, danielle cataracts, thyroidectomy Past Anesthesia/Blood Transfusion Reactions: No Reported Reaction Additional Past Anesthesia/Blood Transfusion Reaction / Comment(s): clausterphobia -"uses open mri" Date of Last Stent Placement:: 1999 Past Psychological History: Anxiety, Depression, Schizophrenia Additional Psychological History / Comment(s): Patient lives at home and helps with care. He uses a walker at home and he uses grab bars. Pt also has been on oxygen since getting to rehab, he normally wears 2 L of oxygen at home. He no longer drives, family can take him to appts. Smoking Status: Former smoker Past Alcohol Use History: None Reported Additional Past Alcohol Use History / Comment(s): Started smoking 1952 and quit 1993 Past Drug Use History: None Reported - Past Family History Father Family Medical History: Cancer Additional Family Medical History / Comment(s): Father had lung cancer and colorectal cancer. He smoked as a younger man. Mother Family Medical History: Cancer Additional Family Medical History / Comment(s): Mother had skin cancer Medications and Allergies Home Medications Medication Instructions Recorded Confirmed Type Levothyroxine Sodium [Synthroid] 88 mcg PO DAILY@0700 09/29/14 11/03/20 History Tamsulosin HCl [Flomax] 0.4 mg PO HS@199911/07/18 11/03/20 History Melatonin 6 mg PO HS@199911/26/18 11/03/20 History Apixaban [Eliquis] 2.5 mg PO BID@0700,1600 07/17/20 11/03/20 History Calcitriol [Rocaltrol] 0.25 mcg PO PHAN@0700 07/17/20 11/03/20 History Finasteride [Proscar] 5 mg PO DAILY@0700 07/17/20 11/03/20 History Aspirin 81 mg PO HS@199909/27/20 11/03/20 History Ipratropium-Albuterol Nebulize 3 ml INHALATION RT-QID ml 09/27/20 11/03/20 Rx [Duoneb 0.5 mg-3 mg/3 ml Soln] Lansoprazole [Prevacid] 15 mg PO BID@0700,1600 09/27/20 11/03/20 History Magnesium Hydroxide [Milk of 2,400 mg PO DAILY PRN 09/27/20 11/03/20 History Magnesia] buPROPion HCL [Wellbutrin XL] 150 mg PO DAILY@0700 09/27/20 11/03/20 History risperiDONE [RisperDAL] 0.5 mg PO HS@199909/27/20 11/03/20 History Acetaminophen Tab [Tylenol] 650 mg PO QID 10/27/20 11/03/20 History Albuterol Nebulized [Ventolin 2.5 mg INHALATION RT-QID PRN 10/27/20 11/03/20 History Nebulized] Bismuth Subsalicylate 262 mg PO Q4H PRN 10/27/20 11/03/20 History [Pepto-Bismol] DULoxetine HCL [Cymbalta] 60 mg PO DAILY@0700 10/27/20 11/03/20 History Fluticasone Nasal Cameron [Flonase 2 spr EA NOSTRIL TID@0700,1300,1900 10/27/20 11/03/20 History Nasal Cameron] LORazepam [Ativan] 0.5 mg PO Q4H PRN 10/27/20 11/03/20 History Mag Hydrox/Aluminum Hyd/Simeth 30 ml PO Q6H PRN 10/27/20 11/03/20 History [Mylanta Maximum Strength Liq] Potassium Chloride ER [K-Dur 10] 10 meq PO DAILY@0700 10/27/20 11/03/20 History Sennosides [Senna] 17.2 mg PO HS@199910/27/20 11/03/20 History cycloSPORINE 0.05% OPHTH SOLN 1 drop BOTH EYES BID PRN 10/27/20 11/03/20 History [Restasis] hydrALAZINE HCL [Apresoline] 50 mg PO TID@0700,1300,1900 10/27/20 11/03/20 History Furosemide [Lasix] 40 mg PO BID@0700,1600 11/03/20 11/03/20 History Insulin Aspart [NovoLOG Flexpen] 5 units SQ AC-TID 11/03/20 11/03/20 History Insulin Aspart [NovoLOG Flexpen] See Protocol SQ ACHS 11/03/20 11/03/20 History Insulin Detemir (Levemir) [Levemir] 30 unit SQ HS@199911/03/20 11/03/20 History Metoprolol Tartrate [Lopressor] 75 mg PO BID@0700,1600 11/03/20 11/03/20 History Allergies Allergy/AdvReac Type Severity Reaction Status Date / Time shellfish derived [Shellfish] AdvReac Rash/Hives Verified 11/03/20 09:22 Physical Exam Vitals: Vital Signs Temp Pulse Resp BP Pulse Ox 11/03/20 13:00 98.4 F 72 18 166/82 97 11/03/20 12:00 98.2 F 64 18 174/89 98 11/03/20 11:00 64 18 157/66 98 11/03/20 08:58 98.0 F 66 18 189/84 97 Intake and Output 11/03/20 11/03/20 11/03/20 06:59 14:59 22:59 Other: Weight 90.718 kg PHYSICAL EXAMINATION: GENERAL: The patient is alert and oriented x3, not in any acute distress. Well developed, well nourished. HEENT: Pupils are round and equally reacting to light. EOMI. No scleral icterus. No conjunctival pallor. Normocephalic, atraumatic. No pharyngeal erythema. No thyromegaly. CARDIOVASCULAR: S1 and S2 present. No murmurs, rubs, or gallops. She does have elevated JVD PULMONARY: Bilateral crackles. ABDOMEN: Soft, nontender, nondistended, normoactive bowel sounds. No palpable or ganomegaly. MUSCULOSKELETAL: No joint swelling or deformity. EXTREMITIES: No cyanosis, clubbing, or pedal edema. NEUROLOGICAL: Gross neurological examination did not reveal any focal deficits. SKIN: No rashes. Results CBC & Chem 7: 11/03/20 09:36 11/03/20 09:36 Labs: Abnormal Lab Results - Last 24 Hours (Table) 11/03/20 11/03/20 11/03/20 Range/Units 09:36 09:36 09:36 WBC 14.4 H (3.8-10.6) k/uL RBC 3.56 L (4.30-5.90) m/uL Hgb 11.6 L (13.0-17.5) gm/dL Hct 36.8 L (39.0-53.0) % MCV 103.3 H (80.0-100.0) fL Neutrophils # 13.0 H (1.3-7.7) k/uL Lymphocytes # 0.6 L (1.0-4.8) k/uL Carbon Dioxide 39 H (22-30) mmol/L BUN 33 H (9-20) mg/dL Creatinine 1.81 H (0.66-1.25) mg/dL Glucose 54 L (74-99) mg/dL Troponin I 0.058 H* (0.000-0.034) ng/mL Total Protein 5.9 L (6.3-8.2) g/dL Albumin 3.2 L (3.5-5.0) g/dL Urine Protein (Negative) Urine Blood (Negative) Ur Leukocyte Esterase (Negative) Urine RBC (0-5) /hpf Urine WBC (0-5) /hpf Urine WBC Clumps (None) /hpf Urine Bacteria (None) /hpf 11/03/20 Range/Units 11:35 WBC (3.8-10.6) k/uL RBC (4.30-5.90) m/uL Hgb (13.0-17.5) gm/dL Hct (39.0-53.0) % MCV (80.0-100.0) fL Neutrophils # (1.3-7.7) k/uL Lymphocytes # (1.0-4.8) k/uL Carbon Dioxide (22-30) mmol/L BUN (9-20) mg/dL Creatinine (0.66-1.25) mg/dL Glucose (74-99) mg/dL Troponin I (0.000-0.034) ng/mL Total Protein (6.3-8.2) g/dL Albumin (3.5-5.0) g/dL Urine Protein 2+ H (Negative) Urine Blood Small H (Negative) Ur Leukocyte Esterase Large H (Negative) Urine RBC 45 H (0-5) /hpf Urine WBC >182 H (0-5) /hpf Urine WBC Clumps Few H (None) /hpf Urine Bacteria Many H (None) /hpf Thrombosis Risk Factor Assmnt - Choose All That Apply Any of the Below Risk Factors Present?: Yes Each Factor Represents 1 point: Serious lung disease incl. pneumonia (< 1month), Swollen legs (current) Other Risk Factors: Yes Each Risk Factor Represents 3 Points: Age 75 years or older Other congenital or acquired thrombophilia - If yes, enter type in comment: No Thrombosis Risk Factor Assessment Total Risk Factor Score: 5 Thrombosis Risk Factor Assessment Level: High Risk Assessment and Plan Plan: -Congestive heart failure chronic diastolic dysfunction with acute exacerbation. Patient was started on 40 IV every 8 hourly Lasix which is appropriate which will be continued. Close monitoring of kidney function. -Acute on chronic hypoxic respiratory failure: Acute respiratory failure secondary to CHF chronic respiratory failure secondary to COPD patient is presently not COPD exacerbation patient will be resumed on his inhalational treatments. A she usually uses 2 L of oxygen at home -Proximal atrial fibrillation on Eliquis 2.5 twice a day which will be continued. Patient is presently sinus rhythm. -Depression -COPD without any acute exacerbation. -Type 2 diabetes mellitus: Patient the blood sugars are bit low patient will be resumed on long-acting insulin and patient will be on sliding scale pre-meal insulin will be held because of low normal blood sugars. -Chronic deconditioning: Patient is a skilled nursing resident -Coronary artery disease -Hyperlipidemia -Benign prostatic hypertrophy -Sleep apnea and uses CPAP machine Depression -Hypothyroidism
[2020-11-03] MEDS: APIXABAN 2.5 MG TABLET PO SCH (15:39)
[2020-11-03] MEDS: METOPROLOL TARTRATE 25 MG TAB PO SCH (15:39)
[2020-11-03] MEDS: PANTOPRAZOLE 40 MG TABLET PO SCH (15:39)
[2020-11-03] MEDS: LORazepam 2 MG/ML INJ IV PRN ×2 (16:16→20:32)
[2020-11-03 17:09] LABS: Glucose,Whole Blood 172 mg/dL (75-99)
[2020-11-03] MEDS: INSULIN ASPART (NovoLOG) 100 UNIT/ML VIAL SQ SCH ×2 (17:40→20:31)
[2020-11-03] MEDS ORDERED: INSULIN DETEMIR (LEVEMIR) 100 UNIT/ML SYR SQ SCH (20:00)
[2020-11-03 20:08] LABS: Glucose,Whole Blood 189 mg/dL (75-99)
[2020-11-03] MEDS: SENNOSIDES 8.6 MG TAB PO SCH (20:29)
[2020-11-03] MEDS: risperiDONE 0.5 MG TAB PO SCH (20:29)
[2020-11-03] MEDS: MELATONIN 3 MG TABLET PO SCH (20:29)
[2020-11-03] MEDS: ASPIRIN 81 MG PO SCH (20:29)
[2020-11-03] MEDS: TAMSULOSIN 0.4 MG CAP.ER.24H PO SCH (20:30)
[2020-11-04] MEDS: LORazepam 2 MG/ML INJ IV PRN ×3 (02:17→20:06)
[2020-11-04] MEDS: FUROSEMIDE 10 MG/ML 4 ML VIAL IV SCH ×3 (03:05→20:06)
[2020-11-04] MEDS: buPROPion XL 150 MG TAB.ER.24H PO SCH (06:04)
[2020-11-04] MEDS: FINASTERIDE 5 MG TAB PO SCH (06:04)
[2020-11-04] MEDS: hydrALAZINE HCL 50 MG TAB PO SCH ×3 (06:04→18:31)
[2020-11-04] MEDS: LEVOTHYROXINE 88 MCG TAB PO SCH (06:04)
[2020-11-04] MEDS: METOPROLOL TARTRATE 25 MG TAB PO SCH ×2 (06:04→15:35)
[2020-11-04] MEDS: APIXABAN 2.5 MG TABLET PO SCH ×2 (06:04→15:36)
[2020-11-04] MEDS: DULoxetine HCL 60 MG CAPSULE.DR PO SCH (06:04)
[2020-11-04] MEDS: PANTOPRAZOLE 40 MG TABLET PO SCH ×2 (06:05→15:36)
[2020-11-04] MEDS: POTASSIUM CHLORIDE ER 10 MEQ TAB.ER.PRT PO SCH (06:05)
[2020-11-04] MEDS: FLUTICASONE 50MCG/SPRAY NASAL 16GM EA NOSTRIL SCH ×3 (06:05→18:31)
[2020-11-04] MEDS ORDERED: DEXTROSE 50% SYRINGE 50 ML IVP ONE (06:12)
[2020-11-04 06:13] LABS: Glucose,Whole Blood 33 mg/dL (75-99)
[2020-11-04] MEDS: INSULIN ASPART (NovoLOG) 100 UNIT/ML VIAL SQ SCH ×4 (06:18→20:55)
[2020-11-04 06:30] LABS: Glucose,Whole Blood 183 mg/dL (75-99)
[2020-11-04 08:28] VITALS: RESP 18
[2020-11-04 08:49] LABS: HCT 36.2 % (39.0-53.0); HGB 11.4 gm/dL (13.0-17.5); Hypochromasia Slight; MCH 32.7 pg (25.0-35.0); MCHC 31.4 g/dL (31.0-37.0); MCV 104.1 fL (80.0-100.0); Macrocytosis Slight; Mean Platelet Volume 6.9; Platelet Count 232 k/uL (150-450); RBC 3.47 m/uL (4.30-5.90); RDW 14.6 % (11.5-15.5); WBC 10.5 k/uL (3.8-10.6)
[2020-11-04] MEDS: IPRATROPIUM-ALBUTEROL 3 ML NEB INHALATION SCH ×4 (09:10→19:29)
[2020-11-04 09:16] LABS: Magnesium 2.3 mg/dL (1.6-2.3); Potassium 3.6 mmol/L (3.5-5.1)
--- NOTE | 2020-11-04 09:19 | P.PN ---
Subjective Ration the with the chronic diastolic dysfunction is admitted for heart failure exacerbation patient is doing much better today able to lie flat in the bed patient received quite a bit of Ativan is willing and excessive sleepiness today. Patient does have history of atrial fibrillation presently sinus rhythm on anticoagulation. Patient does have chronic kidney disease stage III with baseline creatinine of around 1.9. Today morning labs are pending. Constitutional: Denied any fatigue denied any fever. Cardio vascular: denied any chest pain, palpitations Gastrointestinal denied any nausea vomiting Pulmonary: Again improvement in shortness of breath Neurologic denied any new focal deficits All inpatient medications were reviewed and appropriate changes in these medications as dictated in the interval history and assessment and plan. Objective - Vital Signs Vital signs: Vital Signs Temp 97.5 F L 11/04/20 03:37 Pulse 84 11/04/20 09:10 Resp 18 11/04/20 08:27 BP 135/68 11/04/20 08:27 Pulse Ox 98 11/04/20 08:27 Intake & Output 11/03/20 11/04/20 11/04/20 18:59 06:59 18:59 Intake Total 250 240 Output Total 2600 Balance 250 -2360 Weight 90.718 kg 98.5 kg Intake: Oral 250 240 Output: Urine 2600 Other: Voiding Method Indwelling Catheter - Exam PHYSICAL EXAMINATION: GENERAL: The patient is alert and oriented x3, not in any acute distress. Well developed, well nourished. HEENT: Pupils are round and equally reacting to light. EOMI. No scleral icterus. No conjunctival pallor. Normocephalic, atraumatic. No pharyngeal erythema. No thyromegaly. CARDIOVASCULAR: S1 and S2 present. No murmurs, rubs, or gallops. She does have elevated JVD PULMONARY: clear to auscultation no wheezing or crackles were appreciated. ABDOMEN: Soft, nontender, nondistended, normoactive bowel sounds. No palpable organomegaly. MUSCULOSKELETAL: No joint swelling or deformity. EXTREMITIES: No cyanosis, clubbing, improved pedal edema NEUROLOGICAL: Gross neurological examination did not reveal any focal deficits. SKIN: No rashes. - Labs CBC & Chem 7: 11/04/20 08:20 11/03/20 09:36 Labs: Abnormal Lab Results - Last 24 Hours (Table) 11/03/20 11/03/20 11/03/20 Range/Units 09:36 09:36 09:36 WBC 14.4 H (3.8-10.6) k/uL RBC 3.56 L (4.30-5.90) m/uL Hgb 11.6 L (13.0-17.5) gm/dL Hct 36.8 L (39.0-53.0) % MCV 103.3 H (80.0-100.0) fL Neutrophils # 13.0 H (1.3-7.7) k/uL Lymphocytes # 0.6 L (1.0-4.8) k/uL Carbon Dioxide 39 H (22-30) mmol/L BUN 33 H (9-20) mg/dL Creatinine 1.81 H (0.66-1.25) mg/dL Glucose 54 L (74-99) mg/dL POC Glucose (mg/dL) (75-99) mg/dL Troponin I 0.058 H* (0.000-0.034) ng/mL Total Protein 5.9 L (6.3-8.2) g/dL Albumin 3.2 L (3.5-5.0) g/dL Urine Protein (Negative) Urine Blood (Negative) Ur Leukocyte Esterase (Negative) Urine RBC (0-5) /hpf Urine WBC (0-5) /hpf Urine WBC Clumps (None) /hpf Urine Bacteria (None) /hpf 11/03/20 11/03/20 11/03/20 Range/Units 11:35 17:07 20:07 WBC (3.8-10.6) k/uL RBC (4.30-5.90) m/uL Hgb (13.0-17.5) gm/dL Hct (39.0-53.0) % MCV (80.0-100.0) fL Neutrophils # (1.3-7.7) k/uL Lymphocytes # (1.0-4.8) k/uL Carbon Dioxide (22-30) mmol/L BUN (9-20) mg/dL Creatinine (0.66-1.25) mg/dL Glucose (74-99) mg/dL POC Glucose (mg/dL) 172 H 189 H (75-99) mg/dL Troponin I (0.000-0.034) ng/mL Total Protein (6.3-8.2) g/dL Albumin (3.5-5.0) g/dL Urine Protein 2+ H (Negative) Urine Blood Small H (Negative) Ur Leukocyte Esterase Large H (Negative) Urine RBC 45 H (0-5) /hpf Urine WBC >182 H (0-5) /hpf Urine WBC Clumps Few H (None) /hpf Urine Bacteria Many H (None) /hpf 11/04/20 11/04/20 11/04/20 Range/Units 06:11 06:28 08:20 WBC (3.8-10.6) k/uL RBC 3.47 L (4.30-5.90) m/uL Hgb 11.4 L (13.0-17.5) gm/dL Hct 36.2 L (39.0-53.0) % MCV 104.1 H (80.0-100.0) fL Neutrophils # (1.3-7.7) k/uL Lymphocytes # (1.0-4.8) k/uL Carbon Dioxide (22-30) mmol/L BUN (9-20) mg/dL Creatinine (0.66-1.25) mg/dL Glucose (74-99) mg/dL POC Glucose (mg/dL) 33 L 183 H (75-99) mg/dL Troponin I (0.000-0.034) ng/mL Total Protein (6.3-8.2) g/dL Albumin (3.5-5.0) g/dL Urine Protein (Negative) Urine Blood (Negative) Ur Leukocyte Esterase (Negative) Urine RBC (0-5) /hpf Urine WBC (0-5) /hpf Urine WBC Clumps (None) /hpf Urine Bacteria (None) /hpf Assessment and Plan Plan: -Congestive heart failure chronic diastolic dysfunction with acute exacerbation. Patient was started on 40 IV every 8 hourly Lasix Close monitoring of kidney function. -Acute on chronic hypoxic respiratory failure: Acute respiratory failure secondary to CHF chronic respiratory failure secondary to COPD patient is presently not COPD exacerbation patient will be resumed on his inhalational treatments. he usually uses 2 L of oxygen at home wasn't on 2 L of oxygen -Proximal atrial fibrillation on Eliquis 2.5 twice a day which will be continued. Patient is presently sinus rhythm. -Depression -COPD without any acute exacerbation. -Type 2 diabetes mellitus: Patient the blood sugars are bit low, continue with sliding scale cut down on long-acting insulin to 20 units from 30 units -Chronic deconditioning: Patient is a [facility] resident -Coronary artery disease -Hyperlipidemia -Benign prostatic hypertrophy -Sleep apnea and uses CPAP machine Depression -Hypothyroidism
[2020-11-04] MEDS: ACETAMINOPHEN TAB 325 MG TAB PO SCH ×4 (10:05→21:55)
[2020-11-04 11:12] VITALS: BMI 32.1
[2020-11-04 11:27] LABS: Glucose,Whole Blood 43 mg/dL (75-99)
[2020-11-04] MEDS: ISOSORBIDE DINITRATE 10 MG TAB PO SCH ×3 (11:37→21:06)
[2020-11-04 11:44] LABS: Glucose,Whole Blood 58 mg/dL (75-99)
[2020-11-04 12:20] LABS: Glucose,Whole Blood 95 mg/dL (75-99)
--- NOTE | 2020-11-04 13:35 | P.CRDCN ---
History of Present Illness Consult date: 11/04/20 History of present illness: CHIEF COMPLAINT: CHF HISTORY OF PRESENT ILLNESS: This is a 85-year-old male with a past medical hi story significant for coronary artery disease with previous PCI, atrial fibrillation, diabetes mellitus, COPD, hypertension, and hyperlipidemia. Patient follows in the office with Dr. Wells. We have been asked to see the patient in consultation for congestive heart failure. Patient examined this morning the bedside. Patient is confused and unable to provide a good history. Apparently the patient resides at [facility] and was brought to the hospital via EMS secondary to hypoxia with oxygen saturations in the 80s. Patient was found to be in congestive heart failure and was started on IV Lasix. The patient currently denies chest pain or pressure. He denies shortness of breath. Denies dizziness or lightheadedness. Denies nausea or vomiting. DIAGNOSTICS: EKG reveals sinus mechanism with no signs of acute ischemia Chest xray progressive pulmonary venous congestion with bilateral effusions and basilar atelectasis and/or infiltrates. Cardio megaly. Laboratory data: WBC 10.5. Hemoglobin 11.4. Platelet count 232. Sodium 140. Potassium 3.6. BUN 34. Creatinine 1.83. Troponin 0.058. BNP 33,000. Current home cardiac medications include hydralazine 50 mg 3 times a day, metoprolol 75 mg twice a day, Lasix 40 mg twice a day, aspirin 81 mg daily, and Eliquis 2.5 mg twice a day. Echocardiogram performed in October 2020 reveals ejection fraction 50-55%, mild mitral regurgitation, and mild tricuspid regurgitation REVIEW OF SYSTEMS: At the time of my exam: CONSTITUTIONAL: Denies fever or chills. HEENT: Denies blurred vision, vision changes, or eye pain. Denies hemoptysis CARDIOVASCULAR: Denies chest pain, orthopnea, PND or palpitations RESPIRATORY: No shortness of breath. GASTROINTESTINAL: Denies abdominal pain. Denies nausea or vomiting. HEMATOLOGIC: Denies bleeding disorders. GENITOURINARY: Denies any blood in urine. SKIN: Denies pruitis. Denies rash. PHYSICAL EXAM: VITAL SIGNS: Reviewed. GENERAL: Well-developed in no acute distress. HEENT: Head is normocephalic. Pupils are equal, round. Sclerae anicteric. Mucous membranes of the mouth are moist. Neck supple. No JVD or thyromegaly LUNGS: Respirations even and unlabored. Lungs diminished with crackles to the bilateral bases HEART: Irregular rate and rhythm. S1 and S2 heard. ABDOMEN: Soft. Nondistended. Nontender. EXTREMITIES: Normal range of motion. No clubbing or cyanosis. Peripheral pulses intact. 2+ bilateral lower extremity edema NEUROLOGIC: Awake and alert. Oriented x 1-2. ASSESSMENT: Acute exacerbation of chronic diastolic heart failure EF 50-55%, BNP 33,000 Chronic persistent atrial fibrillation, on long-term anticoagulation with Eliquis Coronary artery disease with previous PCI Chronic kidney disease Hypertension Hyperlipidemia COPD Diabetes mellitus PLAN: No need to repeat echocardiogram as this was performed earlier this month Resume home cardiac medications Continue current dose of IV Lasix 40 mg IV every 8 hours Daily weights Accurate I&O Monitor kidney function Begin Isosorbide dinitrate 10mg TID Further recommendations pending patient's course Nurse practitioner note has been reviewed by physician. Signing provider agrees with the documented findings, assessment, and plan of care. Past Medical History Past Medical History: Coronary Artery Disease (CAD), Cancer, Heart Failure, COPD, Diabetes Mellitus, GERD/Reflux, Hyperlipidemia, Hypertension, Myocardial Infarction (SC), Pneumonia, Prostate Disorder, Sleep Apnea/CPAP/BIPAP, Thyroid Disorder Additional Past Medical History / Comment(s): no CPAP used, hiatal hernia, hx thyroid cancer, macular degeneration danielle eyes, pt on 2l 02 Last Myocardial Infarction Date:: 1999 History of Any Multi-Drug Resistant Organisms: None Reported Past Surgical History: Heart Catheterization With Stent, Joint Replacement Additional Past Surgical History / Comment(s): left knee replacement, danielle cataracts, thyroidectomy Past Anesthesia/Blood Transfusion Reactions: No Reported Reaction Additional Past Anesthesia/Blood Transfusion Reaction / Comment(s): clausterphobia -"uses open mri" Date of Last Stent Placement:: 1999 Past Psychological History: Anxiety, Depression, Schizophrenia Additional Psychological History / Comment(s): Patient lives at home and helps with care. He uses a walker at home and he uses grab bars. Pt also has been on oxygen since getting to rehab, he normally wears 2 L of oxygen at home. He no longer drives, family can take him to appts. Smoking Status: Former smoker Past Alcohol Use History: None Reported Additional Past Alcohol Use History / Comment(s): Started smoking 1952 and quit 1993 Past Drug Use History: None Reported - Past Family History Father Family Medical History: Cancer Additional Family Medical History / Comment(s): Father had lung cancer and colorectal cancer. He smoked as a younger man. Mother Family Medical History: Cancer Additional Family Medical History / Comment(s): Mother had skin cancer Medications and Allergies Home Medications Medication Instructions Recorded Confirmed Type Levothyroxine Sodium [Synthroid] 88 mcg PO DAILY@0700 09/29/14 11/03/20 History Tamsulosin HCl [Flomax] 0.4 mg PO HS@199911/07/18 11/03/20 History Melatonin 6 mg PO HS@199911/26/18 11/03/20 History Apixaban [Eliquis] 2.5 mg PO BID@0700,159907/17/20 11/03/20 History Calcitriol [Rocaltrol] 0.25 mcg PO PHAN@69907/17/20 11/03/20 History Finasteride [Proscar] 5 mg PO DAILY@0707/17/20 11/03/20 History Aspirin 81 mg PO HS@199909/27/20 11/03/20 History Ipratropium-Albuterol Nebulize 3 ml INHALATION RT-QID ml 09/27/20 11/03/20 Rx [Duoneb 0.5 mg-3 mg/3 ml Soln] Lansoprazole [Prevacid] 15 mg PO BID@0700,1600 09/27/20 11/03/20 History Magnesium Hydroxide [Milk of 2,400 mg PO DAILY PRN 09/27/20 11/03/20 History Magnesia] buPROPion HCL [Wellbutrin XL] 150 mg PO DAILY@0700 09/27/20 11/03/20 History risperiDONE [RisperDAL] 0.5 mg PO HS@199909/27/20 11/03/20 History Acetaminophen Tab [Tylenol] 650 mg PO QID 10/27/20 11/03/20 History Albuterol Nebulized [Ventolin 2.5 mg INHALATION RT-QID PRN 10/27/20 11/03/20 History Nebulized] Bismuth Subsalicylate 262 mg PO Q4H PRN 10/27/20 11/03/20 History [Pepto-Bismol] DULoxetine HCL [Cymbalta] 60 mg PO DAILY@0700 10/27/20 11/03/20 History Fluticasone Nasal Gilead [Flonase 2 spr EA NOSTRIL TID@0700,1300,1900 10/27/20 11/03/20 History Nasal Gilead] LORazepam [Ativan] 0.5 mg PO Q4H PRN 10/27/20 11/03/20 History Mag Hydrox/Aluminum Hyd/Simeth 30 ml PO Q6H PRN 10/27/20 11/03/20 History [Mylanta Maximum Strength Liq] Potassium Chloride ER [K-Dur 10] 10 meq PO DAILY@0700 10/27/20 11/03/20 History Sennosides [Senna] 17.2 mg PO HS@199910/27/20 11/03/20 History cycloSPORINE 0.05% OPHTH SOLN 1 drop BOTH EYES BID PRN 10/27/20 11/03/20 History [Restasis] hydrALAZINE HCL [Apresoline] 50 mg PO TID@0700,1300,1900 10/27/20 11/03/20 History Furosemide [Lasix] 40 mg PO BID@0700,1600 11/03/20 11/03/20 History Insulin Aspart [NovoLOG Flexpen] 5 units SQ AC-TID 11/03/20 11/03/20 History Insulin Aspart [NovoLOG Flexpen] See Protocol SQ ACHS 11/03/20 11/03/20 History Insulin Detemir (Levemir) [Levemir] 30 unit SQ HS@199911/03/20 11/03/20 History Metoprolol Tartrate [Lopressor] 75 mg PO BID@0700,1600 11/03/20 11/03/20 History Allergies Allergy/AdvReac Type Severity Reaction Status Date / Time shellfish derived [Shellfish] AdvReac Rash/Hives Verified 11/03/20 09:22 Physical Exam Vitals: Vital Signs Temp Pulse Pulse Resp BP Pulse Ox 11/04/20 11:35 85 18 123/88 97 11/04/20 09:27 84 11/04/20 09:10 84 11/04/20 08:27 98 18 135/68 98 11/04/20 08:00 18 11/04/20 03:37 97.5 F L 100 20 164/84 93 L 11/04/20 00:00 97.7 F 75 18 157/72 96 11/03/20 20:00 98.2 F 70 20 174/78 93 L 11/03/20 16:42 83 11/03/20 16:32 92 L 11/03/20 16:31 81 11/03/20 15:00 97.9 F 75 20 178/84 93 L Intake and Output 11/03/20 11/04/20 11/04/20 22:59 06:59 14:59 Intake Total 490 Output Total 325 2275 Balance 165 -2275 Intake: Oral 490 Output: Urine 325 2275 Other: Voiding Method Indwelling Catheter Indwelling Catheter Indwelling Catheter Weight 98.5 kg 98.5 kg Results 11/04/20 08:20 11/04/20 08:20 CBC 11/04/20 Range/Units 08:20 WBC 10.5 (3.8-10.6) k/uL RBC 3.47 L (4.30-5.90) m/uL Hgb 11.4 L (13.0-17.5) gm/dL Hct 36.2 L (39.0-53.0) % Plt Count 232 (150-450) k/uL Comprehensive Metabolic Panel 11/04/20 Range/Units 08:20 Sodium 140 (137-145) mmol/L Potassium 3.6 (3.5-5.1) mmol/L Chloride 98 (98-107) mmol/L Carbon Dioxide 40 H (22-30) mmol/L BUN 34 H (9-20) mg/dL Creatinine 1.83 H (0.66-1.25) mg/dL Glucose 88 (74-99) mg/dL Calcium 9.0 (8.4-10.2) mg/dL Current Medications Generic Name Dose Route Start Last Admin Trade Name Freq PRN Reason Stop Dose Admin Acetaminophen 650 mg 11/03/20 13:00 11/04/20 10:05 Acetaminophen Tab 325 Mg Tab PO 650 mg QID NICKIE Administration Al Hydroxide/Mg Hydroxide 30 ml 11/03/20 11:52 Mag Hydrox/Al Hydrox/Simeth 30 Ml Cup PO Q6H PRN GI Upset Albuterol Sulfate 2.5 mg 11/03/20 11:52 Albuterol Nebulized 2.5 Mg/3 Ml INHALATION RT-QID PRN Shortness Of Breath Albuterol/Ipratropium 3 ml 11/03/20 12:00 11/04/20 09:10 Ipratropium-Albuterol 3 Ml Neb INHALATION 3 ml RT-QID NICKIE Administration Albuterol/Ipratropium 3 ml 11/03/20 15:16 Ipratropium-Albuterol 3 Ml Neb INHALATION RT-Q2H PRN Shortness Of Breath Or Wheezing Apixaban 2.5 mg 11/03/20 16:00 11/04/20 06:04 Apixaban 2.5 Mg Tablet PO 2.5 mg BID@0700,1600 [facility] Administration Aspirin 81 mg 11/03/20 20:00 11/03/20 20:29 Aspirin 81 Mg PO 81 mg HS@1999 [facility] Administration Bismuth Subsalicylate 262 mg 11/03/20 11:52 Bismuth Subsalicylate 4,192 Mg/240 Ml Bottle PO Q4H PRN Diarrhea Bupropion HCl 150 mg 11/04/20 07:00 11/04/20 06:04 Bupropion Xl 150 Mg Tab.Er.24h PO 150 mg DAILY@0700 [facility] Administration Calcitriol 0.25 mcg 11/07/20 07:00 Calcitriol 0.25 Mcg Cap PO PHAN@07 [facility] Cyclosporine 1 drops 11/03/20 11:52 Cyclosporine 0.05% Ophth 0.4 Ml Droperette BOTH EYES BID PRN Dry Eye(s) Duloxetine HCl 60 mg 11/04/20 07:00 11/04/20 06:04 Duloxetine Hcl 60 Mg Capsule.Dr PO 60 mg DAILY@0700 [facility] Administration Finasteride 5 mg 11/04/20 07:00 11/04/20 06:04 Finasteride 5 Mg Tab PO 5 mg DAILY@0700 [facility] Administration Fluticasone Propionate 2 spray 11/03/20 13:00 11/04/20 06:05 Fluticasone 50mcg/Gilead Nasal 16gm EA NOSTRIL 2 spray TID@0700,1300,1900 NICKIE Administration Furosemide 40 mg 11/03/20 12:00 11/04/20 11:37 Furosemide 10 Mg/Ml 4 Ml Vial IV 40 mg Q8H NICKIE Administration Hydralazine HCl 50 mg 11/03/20 13:00 11/04/20 06:04 Hydralazine Hcl 50 Mg Tab PO 50 mg TID@0700,1300,1900 [facility] Administration Insulin Aspart 0 unit 11/03/20 17:30 11/04/20 11:38 Insulin Aspart (Novolog) 100 Unit/Ml Vial SQ Not Given ACHS [facility] Protocol Insulin Detemir 20 unit 11/04/20 20:00 Insulin Detemir (Levemir) 100 Unit/Ml Syr SQ HS@1999 [facility] Isosorbide Dinitrate 10 mg 11/04/20 10:30 11/04/20 11:37 Isosorbide Dinitrate 10 Mg Tab PO 10 mg TID [facility] Administration Levothyroxine Sodium 88 mcg 11/04/20 07:00 11/04/20 06:04 Levothyroxine 88 Mcg Tab PO 88 mcg DAILY@0700 [facility] Administration Lorazepam 1 mg 11/04/20 09:13 11/04/20 11:38 Lorazepam 2 Mg/Ml Inj IV 1 mg Q8HR PRN Administration Anxiety Melatonin 6 mg 11/03/20 20:00 11/03/20 20:29 Melatonin 3 Mg Tablet PO 6 mg HS@1999 [facility] Administration Metoprolol Tartrate 75 mg 11/03/20 16:00 11/04/20 06:04 Metoprolol Tartrate 25 Mg Tab PO 75 mg BID@0700,1600 [facility] Administration Pantoprazole Sodium 40 mg 11/03/20 16:00 11/04/20 06:05 Pantoprazole 40 Mg Tablet PO 40 mg BID@0700,1600 [facility] Administration Potassium Chloride 10 meq 11/04/20 07:00 11/04/20 06:05 Potassium Chloride Er 10 Meq Tab.Er.Prt PO 10 meq DAILY@0700 [facility] Administration Risperidone 0.5 mg 11/03/20 20:00 11/03/20 20:29 Risperidone 0.5 Mg Tab PO 0.5 mg HS@1999 [facility] Administration Senna 17.2 mg 11/03/20 20:00 11/03/20 20:29 Sennosides 8.6 Mg Tab PO 17.2 mg HS@1999 [facility] Administration Tamsulosin HCl 0.4 mg 11/03/20 20:00 11/03/20 20:30 Tamsulosin 0.4 Mg Cap.Er.24h PO 0.4 mg HS@1999 [facility] Administration Intake and Output 11/03/20 11/04/20 11/04/20 22:59 06:59 14:59 Intake Total 490 Output Total 325 2275 Balance 165 -2275 Intake: Oral 490 Output: Urine 325 2275 Other: Voiding Method Indwelling Catheter Indwelling Catheter Indwelling Catheter Weight 98.5 kg 98.5 kg Patient Weight 11/05/20 06:59 Weight 98.5 kg 11/04/20 08:20 11/04/20 08:20
[2020-11-04 16:09] LABS: Glucose,Whole Blood 230 mg/dL (75-99)
[2020-11-04 18:27] LABS: Hemoglobin A1C 5.6 % (4.0-6.0)
[2020-11-04] MEDS ORDERED: INSULIN DETEMIR (LEVEMIR) 100 UNIT/ML SYR SQ SCH (20:00)
[2020-11-04] MEDS: MELATONIN 3 MG TABLET PO SCH (20:05)
[2020-11-04] MEDS: SENNOSIDES 8.6 MG TAB PO SCH (20:05)
[2020-11-04] MEDS: TAMSULOSIN 0.4 MG CAP.ER.24H PO SCH (20:06)
[2020-11-04] MEDS: ASPIRIN 81 MG PO SCH (20:07)
[2020-11-04] MEDS: risperiDONE 0.5 MG TAB PO SCH (20:09)
[2020-11-04 20:21] LABS: Glucose,Whole Blood 120 mg/dL (75-99)
[2020-11-05] MEDS: LORazepam 2 MG/ML INJ IV PRN (01:30)
[2020-11-05] MEDS: FUROSEMIDE 10 MG/ML 4 ML VIAL IV SCH (03:52)
[2020-11-05 06:22] LABS: Glucose,Whole Blood 40 mg/dL (75-99)
[2020-11-05] MEDS: INSULIN ASPART (NovoLOG) 100 UNIT/ML VIAL SQ SCH ×2 (06:25→12:47)
[2020-11-05] MEDS ORDERED: DEXTROSE 50% SYRINGE 50 ML IVP STA (06:27)
[2020-11-05] MEDS: APIXABAN 2.5 MG TABLET PO SCH (07:02)
[2020-11-05] MEDS: PANTOPRAZOLE 40 MG TABLET PO SCH (07:02)
[2020-11-05] MEDS: LEVOTHYROXINE 88 MCG TAB PO SCH (07:02)
[2020-11-05] MEDS: hydrALAZINE HCL 50 MG TAB PO SCH ×2 (07:02→12:50)
[2020-11-05] MEDS: POTASSIUM CHLORIDE ER 10 MEQ TAB.ER.PRT PO SCH (07:02)
[2020-11-05] MEDS: DULoxetine HCL 60 MG CAPSULE.DR PO SCH (07:02)
[2020-11-05] MEDS: FINASTERIDE 5 MG TAB PO SCH (07:02)
[2020-11-05] MEDS: buPROPion XL 150 MG TAB.ER.24H PO SCH (07:02)
[2020-11-05] MEDS: METOPROLOL TARTRATE 25 MG TAB PO SCH (07:02)
[2020-11-05] MEDS: FLUTICASONE 50MCG/SPRAY NASAL 16GM EA NOSTRIL SCH ×2 (07:03→12:51)
[2020-11-05 07:08] LABS: Glucose,Whole Blood 158 mg/dL (75-99)
[2020-11-05 08:23] LABS: Calcium 8.3 mg/dL (8.4-10.2)
[2020-11-05 08:25] LABS: Potassium 4.6 mmol/L (3.5-5.1)
--- NOTE | 2020-11-05 09:01 | XR ---
EXAMINATION TYPE: XR chest 1V DATE OF EXAM: 11/05/2020 COMPARISON: 11/03/2020 INDICATION: Heart failure TECHNIQUE: Single frontal view of the chest is obtained. FINDINGS: The heart size is normal. The pulmonary vasculature is normal. There is mild elevation of the right diaphragm. Mild infiltrates at the left base. Findings have impr cyndi over the interval. IMPRESSION: 1. Improving mild left basilar infiltrate.
[2020-11-05] MEDS: ACETAMINOPHEN TAB 325 MG TAB PO SCH ×2 (09:24→12:50)
[2020-11-05] MEDS: ISOSORBIDE DINITRATE 10 MG TAB PO SCH (09:25)
[2020-11-05] MEDS: IPRATROPIUM-ALBUTEROL 3 ML NEB INHALATION SCH ×2 (10:00→12:00)
[2020-11-05 12:04] LABS: Glucose,Whole Blood 107 mg/dL (75-99)
--- NOTE | 2020-11-05 12:33 | P.DS ---
Providers Date of admission: 11/03/20 11:50 Attending physician: Melissa Elam Consults: 11/03/20 11:51 Consult Physician Stat Consulting Provider: Obinna Valdovinos Reason/Comments: CHF Do you want consulting provider notified?: Yes [facility] Course: Patient with known chronic diastolic dysfunction is admitted for heart failure exacerbation patient is doing much better today able to lie flat in the bed patient received quite a bit of Ativan is willing and excessive sleepiness today. Patient does have history of atrial fibrillation presently sinus rhythm on anticoagulation. Patient does have chronic kidney disease stage III with baseline creatinine of around 1.9. Today morning labs are pending. 11/05/2020 Patient is pretty status improved significantly patient chest x-ray showed improving pulmonary edema patient was switched to oral Lasix 80 mg in the morning and 40 mg at night. Patient is pretty status is at his baseline lungs are clear to auscultation patient doesn't have any JVD will be discharged today. Patient doesn't have any pedal edema PHYSICAL EXAMINATION: GENERAL: The patient is alert and oriented x3, not in any acute distress. Well developed, well nourished. HEENT: Pupils are round and equally reacting to light. EOMI. No scleral icterus. No conjunctival pallor. Normocephalic, atraumatic. No pharyngeal erythema. No thyromegaly. CARDIOVASCULAR: S1 and S2 present. No murmurs, rubs, or gallops. no JVD PULMONARY: clear to auscultation no wheezing or crackles were appreciated. ABDOMEN: Soft, nontender, nondistended, normoactive bowel sounds. No palpable organomegaly. MUSCULOSKELETAL: No joint swelling or deformity. EXTREMITIES: No cyanosis, clubbing, improved pedal edema NEUROLOGICAL: Gross neurological examination did not reveal any focal deficits. SKIN: No rashes. Assessment and Plan Plan: -Congestive heart failure chronic diastolic dysfunction with acute exacerbation. Patient has a significant improvement in his heart failure status will be discharged today on 80 mg of oral Lasix the morning and chronic 40 mg in the evening. Patient is definitely high risk for readmission because of his multiple medical problems including COPD chronic diastolic dysfunction and atrial fibrillation. -Acute on chronic hypoxic respiratory failure: Acute respiratory failure secondary to CHF chronic respiratory failure secondary to COPD patient is presently not COPD exacerbation patient will be resumed on his inhalational treatments. he usually uses 2 L of oxygen and he is presently on 2 L of oxygen -Proximal atrial fibrillation on Eliquis 2.5 twice a day which will be continued. Patient is presently sinus rhythm. -Depression -COPD without any acute exacerbation. -Type 2 diabetes mellitus: Uncontrolled and hypoglycemic His blood sugar remained low in spite of cutting down on long-acting insulin because of which patient will be discharged on sliding scale patient may eventually need around 10-15 units of long-acting insulin. -Chronic deconditioning: Patient is a long-term resident -Coronary artery disease -Hyperlipidemia -Benign prostatic hypertrophy -Sleep apnea and uses CPAP machine Depression -Hypothyroidism Patient Condition at Discharge: Stable Plan - Discharge Summary Discharge Rx Participant: Yes New Discharge Prescriptions: New Furosemide [Lasix] 80 mg PO DAILY tab Furosemide [Lasix] 40 mg PO DAILY@1700 tab Continue Levothyroxine Sodium [Synthroid] 88 mcg PO DAILY@0700 Tamsulosin HCl [Flomax] 0.4 mg PO HS@2000 Melatonin 6 mg PO HS@2000 Finasteride [Proscar] 5 mg PO DAILY@0700 Apixaban [Eliquis] 2.5 mg PO BID@0700,1600 Calcitriol [Rocaltrol] 0.25 mcg PO PHAN@0700 risperiDONE [RisperDAL] 0.5 mg PO HS@2000 Lansoprazole [Prevacid] 15 mg PO BID@0700,1600 Magnesium Hydroxide [Milk of Magnesia] 2,400 mg PO DAILY PRN PRN Reason: Constipation buPROPion HCL [Wellbutrin XL] 150 mg PO DAILY@0700 Aspirin 81 mg PO HS@2000 Ipratropium-Albuterol Nebulize [Duoneb 0.5 mg-3 mg/3 ml Soln] 3 ml INHALATION RT-QID ml Acetaminophen Tab [Tylenol] 650 mg PO QID Albuterol Nebulized [Ventolin Nebulized] 2.5 mg INHALATION RT-QID PRN PRN Reason: Shortness Of Breath Bismuth Subsalicylate [Pepto-Bismol] 262 mg PO Q4H PRN PRN Reason: Diarrhea cycloSPORINE 0.05% OPHTH SOLN [Restasis] 1 drop BOTH EYES BID PRN PRN Reason: Dry Eye(S) DULoxetine HCL [Cymbalta] 60 mg PO DAILY@0700 Fluticasone Nasal Moran [Flonase Nasal Moran] 2 spr EA NOSTRIL TID@0700,1300,1900 hydrALAZINE HCL [Apresoline] 50 mg PO TID@0700,1300,1900 Mag Hydrox/Aluminum Hyd/Simeth [Mylanta Maximum Strength Liq] 30 ml PO Q6H PRN PRN Reason: Gi Upset Potassium Chloride ER [K-Dur 10] 10 meq PO DAILY@0700 Sennosides [Senna] 17.2 mg PO HS@1999 Insulin Aspart [NovoLOG Flexpen] See Protocol SQ ACHS Metoprolol Tartrate [Lopressor] 75 mg PO BID@0700,1600 LORazepam [Ativan] 0.5 mg PO Q4H PRN #10 tab PRN Reason: Anxiety Discontinued Furosemide [Lasix] 40 mg PO BID@0700,1600 Insulin Aspart [NovoLOG Flexpen] 5 units SQ AC-TID Insulin Detemir (Levemir) [Levemir] 30 unit SQ HS@1999 Discharge Medication List Levothyroxine Sodium [Synthroid] 88 mcg PO DAILY@0700 09/29/14 [History] Tamsulosin HCl [Flomax] 0.4 mg PO HS@199911/07/18 [History] Melatonin 6 mg PO HS@199911/26/18 [History] Apixaban [Eliquis] 2.5 mg PO BID@0700,1600 07/17/20 [History] Calcitriol [Rocaltrol] 0.25 mcg PO PHAN@69907/17/20 [History] Finasteride [Proscar] 5 mg PO DAILY@0700 07/17/20 [History] Aspirin 81 mg PO HS@199909/27/20 [History] Ipratropium-Albuterol Nebulize [Duoneb 0.5 mg-3 mg/3 ml Soln] 3 ml INHALATION RT-QID ml 09/27/20 [Rx] Lansoprazole [Prevacid] 15 mg PO BID@0700,1600 09/27/20 [History] Magnesium Hydroxide [Milk of Magnesia] 2,400 mg PO DAILY PRN 09/27/20 [History] buPROPion HCL [Wellbutrin XL] 150 mg PO DAILY@0700 09/27/20 [History] risperiDONE [RisperDAL] 0.5 mg PO HS@199909/27/20 [History] Acetaminophen Tab [Tylenol] 650 mg PO QID 10/27/20 [History] Albuterol Nebulized [Ventolin Nebulized] 2.5 mg INHALATION RT-QID PRN 10/27/20 [History] Bismuth Subsalicylate [Pepto-Bismol] 262 mg PO Q4H PRN 10/27/20 [History] DULoxetine HCL [Cymbalta] 60 mg PO DAILY@0700 10/27/20 [History] Fluticasone Nasal Moran [Flonase Nasal Moran] 2 spr EA NOSTRIL TID@0700,1300,1900 10/27/20 [History] Mag Hydrox/Aluminum Hyd/Simeth [Mylanta Maximum Strength Liq] 30 ml PO Q6H PRN 10/27/20 [History] Potassium Chloride ER [K-Dur 10] 10 meq PO DAILY@0700 10/27/20 [History] Sennosides [Senna] 17.2 mg PO HS@199910/27/20 [History] cycloSPORINE 0.05% OPHTH SOLN [Restasis] 1 drop BOTH EYES BID PRN 10/27/20 [History] hydrALAZINE HCL [Apresoline] 50 mg PO TID@0700,1300,1900 10/27/20 [History] Insulin Aspart [NovoLOG Flexpen] See Protocol SQ ACHS 11/03/20 [History] Metoprolol Tartrate [Lopressor] 75 mg PO BID@0700,1600 11/03/20 [History] Furosemide [Lasix] 40 mg PO DAILY@1700 tab 11/05/20 [Rx] Furosemide [Lasix] 80 mg PO DAILY tab 11/05/20 [Rx] LORazepam [Ativan] 0.5 mg PO Q4H PRN #10 tab 11/05/20 [Rx] Follow up Appointment(s)/Referral(s): Phoenix Parker MD [Primary Care Provider] - 3 Days
[2020-11-05 12:46] VITALS: BP 126/70; PULSE 99; TEMP 97.4
--- NOTE | 2020-11-05 14:19 | P.PN ---
Subjective Progress Note Date: 11/05/20 CHIEF COMPLAINT: CHF HISTORY OF PRESENT ILLNESS: Patient examined this morning at the bedside. He denies chest pain or pressure. Denies shortness of breath. Vital signs are stable. He remains on IV Lasix. PHYSICAL EXAM: VITAL SIGNS: Reviewed. GENERAL: Well-developed in no acute distress. HEENT: Head is normocephalic. Pupils are equal, round. Sclerae anicteric. Mucous membranes of the mouth are moist. Neck supple. No JVD or thyromegaly LUNGS: Respirations even and unlabored. Lungs diminished with crackles to the bilateral bases HEART: Irregular rate and rhythm. S1 and S2 heard. ABDOMEN: Soft. Nondistended. Nontender. EXTREMITIES: Normal range of motion. No clubbing or cyanosis. Peripheral pulses intact. 1+ bilateral lower extremity edema NEUROLOGIC: Awake and alert. Oriented x 1-2. ASSESSMENT: Acute exacerbation of chronic diastolic heart failure EF 50-55%, BNP 33,000 Chronic persistent atrial fibrillation, on long-term anticoagulation with Eliquis Coronary artery disease with previous PCI Chronic kidney disease Hypertension Hyperlipidemia COPD Diabetes mellitus PLAN: Continue current cardiac medications Transition IV Lasix to oral. 80 mg in the morning and 40 mg at night Daily weights Accurate I&O Monitor kidney function Further recommendations pending patient's course Nurse practitioner note has been reviewed by physician. Signing provider agrees with the documented findings, assessment, and plan of care. Objective - Vital Signs Vital signs: Vital Signs Temp 97.4 F L 11/05/20 12:00 Pulse 90 11/05/20 12:03 Resp 18 11/05/20 12:00 BP 126/70 11/05/20 12:00 Pulse Ox 99 11/05/20 12:00 Intake & Output 11/04/20 11/05/20 11/05/20 18:59 06:59 18:59 Intake Total 240 475 293 Output Total 700 1000 1075 Balance -460 -165 -782 Weight 98.5 kg Intake: Oral 240 475 293 Output: Urine 700 1000 1075 Uretheral (Lamas) 1000 175 Other: Voiding Method Indwelling Catheter Indwelling Catheter Indwelling Catheter - Labs CBC & Chem 7: 11/04/20 08:20 11/05/20 07:40 Labs: Abnormal Lab Results - Last 24 Hours (Table) 11/04/20 11/04/20 11/05/20 Range/Units 16:08 20:20 06:20 Sodium (137-145) mmol/L Carbon Dioxide (22-30) mmol/L BUN (9-20) mg/dL Creatinine (0.66-1.25) mg/dL Glucose (74-99) mg/dL POC Glucose (mg/dL) 230 H 120 H 40 L (75-99) mg/dL Calcium (8.4-10.2) mg/dL 11/05/20 11/05/20 11/05/20 Range/Units 07:07 07:40 12:03 Sodium 136 L (137-145) mmol/L Carbon Dioxide 31 H (22-30) mmol/L BUN 38 H (9-20) mg/dL Creatinine 1.70 H (0.66-1.25) mg/dL Glucose 112 H (74-99) mg/dL POC Glucose (mg/dL) 158 H 107 H (75-99) mg/dL Calcium 8.3 L (8.4-10.2) mg/dL Microbiology - Last 24 Hours (Table) 11/03/20 09:36 Blood Culture - Preliminary Blood No Growth after 48 hours
[2020-11-05] MEDS ORDERED: FUROSEMIDE 40 MG TAB PO SCH (17:00)
[2020-11-06] MEDS ORDERED: FUROSEMIDE 80 MG TAB PO SCH (09:00)
== END 2020-11-05 15:47 | DRG 291 ==
LOC: EC 08:56 → 3SCARD 11:50
PROVIDERS: ADMIT Internal Medicine; ATTEND Internal Medicine
DX: I13.0 Hypertensive heart and chronic kidney disease with heart failure and stage 1 through stage 4 chronic kidney disease, or unspecified chronic kidney disease (principal); I50.33 Acute on chronic diastolic (congestive) heart failure; J96.21 Acute and chronic respiratory failure with hypoxia; I48.19 Other persistent atrial fibrillation; I25.10 Atherosclerotic heart disease of native coronary artery without angina pectoris; F41.9 Anxiety disorder, unspecified; E89.0 Postprocedural hypothyroidism; E78.5 Hyperlipidemia, unspecified; N18.30 Chronic kidney disease, stage 3 unspecified; F32.9 Major depressive disorder, single episode, unspecified; F20.9 Schizophrenia, unspecified; E11.65 Type 2 diabetes mellitus with hyperglycemia; E11.22 Type 2 diabetes mellitus with diabetic chronic kidney disease; G47.30 Sleep apnea, unspecified; N40.0 Benign prostatic hyperplasia without lower urinary tract symptoms; J44.9 Chronic obstructive pulmonary disease, unspecified; Z96.652 Presence of left artificial knee joint; K21.9 Gastro-esophageal reflux disease without esophagitis; Z79.01 Long term (current) use of anticoagulants; Z79.4 Long term (current) use of insulin; Z79.82 Long term (current) use of aspirin; I25.2 Old myocardial infarction; Z79.890 Hormone replacement therapy; Z79.899 Other long term (current) drug therapy; Z80.0 Family history of malignant neoplasm of digestive organs; Z80.1 Family history of malignant neoplasm of trachea, bronchus and lung; Z80.8 Family history of malignant neoplasm of other organs or systems; Z87.891 Personal history of nicotine dependence; Z91.013 Allergy to seafood; Z87.01 Personal history of pneumonia (recurrent); Z95.5 Presence of coronary angioplasty implant and graft; Z98.42 Cataract extraction status, left eye; Z98.41 Cataract extraction status, right eye
CPT/HCPCS: 36415; 71045; 71046; 80048; 80053; 81001; 83036; 83605; 83735; 83880; 84484; 85025; 85027; 85610; 85730; 87040; 87635; 93005; 94640; 96374; 96375; 99285